=== PATIENT | female | born 1950 | race Caucasian/White ===

== ENCOUNTER → 2024-01-17 | Outpatient (CLI) | payer MEDICARE, MEDICAID, SELFPAY ==
[2024-01-17 14:20] LABS: Basophils # (Auto) 0.1 Thou/mm3 (0.0-0.2); Basophils % (Auto) 1 % (0-2.5); Eosinophils # (Auto) 0.2 Thou/mm3 (0.0-0.5); Eosinophils % (Auto) 3 % (0-10); Hemoglobin 11.1 g/dL (12.0-16.0); Immature Granulocytes % (Auto) 0 % (0-0); Immature Granulocytes Auto 0.01 Thou/mm3 (0.00-0.00); Lymphocytes # (Auto) 1.3 Thou/mm3 (1.0-4.8); Lymphocytes % (Auto) 18 % (10-50); Mean Corpuscular Hemoglobin 25.2 pg (25.0-35.0); Mean Corpuscular Volume 84 fL (80-100); Monocytes # (Auto) 1.1 Thou/mm3 (0.0-0.8); Monocytes % (Auto) 15 % (0-12); Neutrophils # (Auto) 4.6 Thou/mm3 (1.8-7.7); Neutrophils % (Auto) 63 % (37-80); Nucleated Red Blood Cell % 0 /100 WBC (0); Platelet Count 413 Thou/mm3 (140-440); RDW Standard Deviation 51.7 fL (36.4-46.3); Red Blood Count 4.41 Miln/mm3 (4.00-5.20); White Blood Count 7.4 Thou/mm3 (3.6-11.0)
[2024-01-17 14:42] LABS: Free T4 (Free Thyroxine) 1.75 ng/dL (0.89-1.76); Thyroid Stimulating Hormone 0.05 uIU/mL (0.55-4.78)
== END | disposition home or self-care (01) ==
LOC: COPL 13:31
PROVIDERS: PCP Family Medicine; Referring Provider Family Medicine; Visit Provider Family Medicine
DX: E05.00 Thyrotoxicosis with diffuse goiter without thyrotoxic crisis or storm (principal)
CPT/HCPCS: 36415; 84439; 84443; 85025

== ENCOUNTER 2024-07-22 23:38 | Inpatient (IN) | payer MEDICARE, MEDICAID, SELFPAY ==
--- NOTE | 2024-07-22 23:42 | PD.EDFALL ---
ED Fall Injury RME/HPI General Chief Complaint: Extremity Injury, Lower Stated Complaint: FALL Time Seen by Provider: 07/23/24 00:17 Arrival date/time: 07/22/24 23:38 RME / HPI RME / HPI Narrative: This section includes all my notes and documentations, including HPI, PE, and ED course. Srikanth Agustin MD HPI: 74 y/o female with Hx of Arthritis and Degenerative Disc Disease BIBA from home presents to ED s/p ground level fall. Patient was home alone in front of her recliner chair when her legs gave out from under her and fell back. She reports falling a total of 3 times, has trouble with the details. She is unaware of how long she was on the floor, but was found by her son after work. She reports diffuse pain. No other complaints. ROS: All negative except as documented in HPI. Physical Exam: General: Alert and oriented. No acute distress remained stable. Eyes: Conjunctivae and lids clear. EOMI. PERRL. ENT: No signs of trauma. Neck: Supple. No tenderness. Heart: RRR. Lungs: No respiratory distress. Good air movement. No rhonchi, wheezing, rales. Abdomen: Soft with equivocal tenderness, difficult to localize. Normal bowel sounds. No distension. No rebound or guarding. Back: No tenderness. Legs: No clubbing, cyanosis, edema. Skin: Warm and dry. Neuro: Alert and oriented X 2. Cranial Nerves II-XII grossly intact. No peripheral motor deficits. Musculoskeletal: Equivocal bilateral hip tenderness. All other major joints and bones are not tender with no limited ROM. I reviewed EMS notes. I reviewed all diagnostic test results. My interpretation of the EKG is sinus rhythm with no acute ST?T changes. My review of the C-spine CT report is no acute fracture. My review of the Chest/Abdomen/Pelvis CT report is no acute findings. My review of the Facial Bones CT report is no acute fracture. My review of the Head/Brain CT report is NAD. My review of the L-spine CT report is no acute fracture. My review of the T-spine CT report is no acute fracture. Blood tests and urine tests remarkable for UTI and SAPPHIRE and rhabdomyolysis and LFT elevation and BNP elevation. Abdominal US report is pending. At this point, diagnoses include: Sepsis UTI Fall SAPPHIRE Rhabdomyolysis LFT elevation BNP elevation Treatment here included IV fluid, Zofran, Morphine, Rocephin. Patient remained stable. I discussed the case with our hospitalist. About the presentation and exam and diagnostics and treatments here. And need of further care in the hospital. Recommended MRCP. At 6 AM on 07/23/2024, the care of the patient was transferred to Dr. WINSLOW. Srikanth Agustin MD Related Data Home Medications ?Medication ?Instructions ?Recorded ?Confirmed potassium chloride 10 mEq 10 meq PO BID 09/08/17 11/15/23 capsule,extended release spironolactone 25 mg tablet 25 mg PO QDAY 12/22/20 11/15/23 furosemide 40 mg tablet See Rx Instructions .Route .COMPLEX 01/26/21 11/15/23 amiodarone 200 mg tablet 200 mg PO BID 07/15/21 11/15/23 morphine 30 mg tablet,extended See Rx Instructions .Route 07/15/21 11/15/23 release .COMPLEX chronic back pain duloxetine 60 mg capsule,delayed 60 mg PO BID 02/28/22 11/15/23 release gabapentin 100 mg capsule 100 mg PO TID 02/28/22 11/15/23 carvedilol 6.25 mg tablet 6.25 mg PO BIDWM 11/03/22 11/15/23 buspirone 15 mg tablet 15 mg PO TID PRN Anxiety 11/15/23 11/15/23 rivaroxaban 20 mg tablet (Xarelto) 20 mg PO HS 11/15/23 11/15/23 Previous Rx's ?Medication ?Instructions ?Recorded amoxicillin 875 mg-potassium 1 tab PO BID #8 tabs 11/16/23 clavulanate 125 mg tablet azithromycin 250 mg tablet 250 mg PO QDAY #2 tabs 11/16/23 methimazole 5 mg tablet 5 mg PO QDAY #30 tabs 11/16/23 Allergies Allergy/AdvReac Type Severity Reaction Status Date / Time doxycycline Allergy Verified 07/23/24 00:53 Review of Systems Review of Systems Systems Reviewed: All systems reviewed, normal except as documented Past Medical History Past Medical History CARDIAC: Positive Cardiac Disorders, Atrial Fibrillation, Hypercholesterolemia, Congestive Heart Failure, Edema, Hypertension and Varicose Veins RESPIRATORY: Positive Chronic Obstructive Pulmonary Disease (COPD) GASTROINTESTINAL: Positive Gastrointestinal Disorders, Gall Bladder Disease and Obesity MUSCULOSKELETAL: Positive Musculoskeletal Disorders, Arthritis and Degenerative Disk Disease PSYCHO/SOCIAL: Positive Anxiety OTHER HISTORY: Positive Falls and Measles Family History FAMILY HISTORY: Positive Family Cardiac Disorders and Family Cancer Surgical History SURGICAL: Positive Ear Surgery and Abdominal Surgery Social History SMOKING STATUS: Current every day smoker ED Exam Narrative Physical exam: Refer to HPI above Course Quality Measures none Orders Category Date Time Status Bedside COVID-19 Antigen Test NOW Care 07/23/24 00:14 Active Bedside Influenza A&B Antigen Test NOW Care 07/23/24 00:14 Completed EKG (ED ONLY) *Do not use* NOW Care 07/23/24 00:15 Completed MRI Screening NOW Care 07/23/24 05:20 Active MRI Screening NOW Care 07/23/24 05:22 Active Saline [Insert IV] NOW Care 07/23/24 00:14 Active Straight [In and Out Catheter] X1 Care 07/23/24 00:14 Completed Diet Cardiac Diet 07/23/[address] cervical spine wo con Stat Exams 07/23/24 00:[address] chest abdomen pelvis wo Stat Exams 07/23/24 00:[address] facial bones wo con Stat Exams 07/23/24 00:[address] head/brain wo con Stat Exams 07/23/24 00:[address] lumbar spine wo con Stat Exams 07/23/24 00:[address] thoracic spine wo con Stat Exams 07/23/24 00:16 Taken EKG (ED Only) Stat Exams 07/23/24 00:15 Draft MR MRCP Stat Exams 07/23/24 Ordered MR MRCP Stat Exams 07/23/24 Ordered US gall bladder Stat Exams 07/23/24 03:04 Taken Alcohol, Blood Medical Stat Lab 07/23/24 00:31 Completed BNP [B-Type Natriuretic Peptide] Stat Lab 07/23/24 00:31 Completed Blood Culture (Lab) Stat Lab 07/23/24 00:31 Received CBC Stat Lab 07/23/24 00:31 Completed CK [Creatine Kinase] Stat Lab 07/23/24 00:31 Completed CMP [Comprehensive Metabolic Panel] Stat Lab 07/23/24 00:31 Completed CRP [C-Reactive Protein] Stat Lab 07/23/24 00:31 Completed Drug Screen,Urine Stat Lab 07/23/24 03:16 Completed ESR [Sed Rate (ESR)] Stat Lab 07/23/24 00:31 Completed Free T4 (Free Thyroxine) Stat Lab 07/23/24 00:31 Completed Lactate (Lactic Acid) Stat Lab 07/23/24 00:31 Completed Magnesium Stat Lab 07/23/24 00:31 [address]pleted Path Review Blood Smear Stat Lab 07/23/24 00:31 Completed Procalcitonin Stat Lab 07/23/24 00:31 Completed TSH [Thyroid Stimulating Hormone] Stat Lab 07/23/24 00:31 Completed Troponin I Stat Lab 07/23/24 00:31 Completed UA, C/S IF [Urinalysis, C/S if Indicated] Stat Lab 07/23/24 03:16 Completed Urine Culture Stat Lab 07/23/24 03:16 Received Amiodarone [Cordarone] Med 07/23/24 09:00 Ordered 200 mg PO BID Methimazole [Tapazole] Med 07/23/24 09:00 Ordered 5 mg PO DAILY Morphine Inj Med 07/23/24 00:14 Discontinued 4 mg IVP X1 ONE Ondansetron Inj [Zofran Inj] Med 07/23/24 00:14 Discontinued 4 mg IV X1 ONE Piper/Tazo 3.375 gm Premix [Zosyn] 50 ml Med 07/23/24 05:04 Ordered IV Q8HR Rivaroxaban [Xarelto] Med 07/23/24 09:00 Discontinued 15 mg PO QDAY Sodium Chloride 0.9% 1000 ml [Ns] 1,000 ml Med 07/23/24 04:58 Ordered IV 100 mls/hr Sodium Chloride 0.9% 1000 ml [Ns] 1,000 ml Med 07/23/24 00:14 Discontinued IV 999 mls/hr Sodium Chloride 0.9% 1000 ml [Ns] 1,000 ml Med 07/23/24 03:02 Discontinued IV 999 mls/hr carVEDILOL [Coreg] Med 07/23/24 08:00 Ordered 6.25 mg PO BIDWM cefTRIAXone/D5w 1gm IV premix [Rocephin/D5w 1gm IV Med 07/23/24 03:02 Discontinued premix] 1 gm in 50 ml IV X1 Vital Signs Vital signs: Vital Signs Temperature 98.0 F 07/22/24 23:49 Pulse Rate 60 07/22/24 23:49 Respiratory Rate 18 07/22/24 23:49 Blood Pressure 115/57 L 07/22/24 23:49 Pulse Oximetry (%) 95 07/22/24 23:49 Oxygen Delivery Method Room Air 07/22/24 23:49 Fall MDM Narrative MDM Narrative:: Scribe Attestation: Yenny Mahajan, am scribing for and in the presence of Dr. Agustin. Provider Notation: Although this document has been carefully reviewed, there may still be some phonetic and other typographical errors.? These errors are purely grammatical due to imperfections in the software program and should not be construed in any way to? compromise the substance of the patient's medical care during this visit. 74 y/o female with Hx of Arthritis and Degenerative Disc Disease BIBA from home presents to ED c/o BL hip and lower extremity pain s/p ground level fall. Patient data External records reviewed:: [facility] previous records (Reviewed prior ED records from 11/13/23. Patient was seen for Hypoxia.) and EMS form Clinical information provided by:: patient and EMS Social determinants that could affect healthcare access:: none Patient has the following chronic illnesses:: Atrial Fibrillation, Hypercholesterolemia, Congestive Heart Failure, Edema, Hypertension, Varicose Veins, Chronic Obstructive Pulmonary Disease, Gall Bladder Disease, Obesity, Arthritis, Degenerative Disk Disease, Anxiety How is presenting disease/condition affected by chronic disease/condition?: exacerbated by Evaluation data The following diagnostics were reviewed and interpreted by me:: lab results, radiology exam(s) and EKG tracing(s) Lab and/or radiology exams considered but not ordered:: None Interpretation Summary: Sepsis UTI Fall SAPPHIRE Rhabdomyolysis LFT elevation BNP elevation Medications / Prescriptions Medications or Prescriptions considered but not ordered:: None Medication administrations:: Medication Administration History Amiodarone HCl (Amiodarone Hcl 200 Mg Tablet) 200 mg PO BID GHADA Stop: 08/22/24 08:59 Carvedilol (Carvedilol 3.125 Mg Tablet) 6.25 mg PO BIDWM GHADA Stop: 08/22/24 07:59 Sodium Chloride (Ns) 1,000 mls @ 100 mls/hr IV .Q10H GHADA Stop: 08/22/24 04:57 Piperacillin/Tazobactam/Dextrose (Zosyn) 50 mls @ 100 mls/hr IV Q8HR GHADA Stop: 07/30/24 05:03 Methimazole (Methimazole 5 Mg Tablet) 5 mg PO DAILY GHADA Stop: 08/22/24 08:59 Discontinued Medications Sodium Chloride (Ns) 1,000 mls @ 999 mls/hr IV .Q1H1M ONE Stop: 07/23/24 01:14 Last Admin: 07/23/24 01:48 Dose: 999 mls/hr Documented By: CG Ceftriaxone Sodium/Dextrose (Rocephin/D5w 1gm Iv Premix) 1 gm in 50 mls @ 100 mls/hr IV X1 ONE Stop: 07/23/24 03:31 Last Admin: 07/23/24 04:44 Dose: 100 mls/hr Documented By: CG Sodium Chloride (Ns) 1,000 mls @ 999 mls/hr IV .Q1H1M ONE Stop: 07/23/24 04:02 Last Admin: 07/23/24 04:45 Dose: 999 mls/hr Documented By: CG Morphine Sulfate (Morphine Sulf Inj 10 Mg/Ml Vial) 4 mg IVP X1 ONE Stop: 07/23/24 00:15 Last Admin: 07/23/24 01:49 Dose: 4 mg Documented By: CG Ondansetron HCl (Ondansetron Inj 2 Mg/Ml Inj 2 Ml) 4 mg IV X1 ONE; Protocol Stop: 07/23/24 00:15 Last Admin: 07/23/24 01:47 Dose: 4 mg Documented By: CG Rivaroxaban (Rivaroxaban 10 Mg Tablet) 15 mg PO QDAY GHADA Stop: 08/22/24 08:59 IV fluid, Zofran, Morphine, Rocephin. Consultations Consultation(s) initiated? (list below): Yes Consultation #1 (Physician, Specialty, Details): I discussed the case with our hospitalist. About the presentation and exam and diagnostics and treatments here. And need of further care in the hospital. Recommended MRCP. Time: 04:30 Diagnosis Fall Differential Diagnosis: syncope, dislocation of shoulder region, compression fracture, concussion with loss of consciousness, concussion without loss of consciousness and other (CVA, TN, UTI, pneumonia, sepsis) Most likely diagnosis given after review of the tests above:: Sepsis UTI Fall SAPPHIRE Rhabdomyolysis LFT elevation BNP elevation Admission Indicated Admission indicated?: indicated Explain why admission is indicated or not indicated:: Complete diagnostic test results pending. Admission Request Was there a request for admission?: Yes Admission Attestation Admission request attestation: Discussed case with Hospitalist service regarding admission. Discussed patients ED course, exam findings, labs, and radiology results. The Hospitalist [declines] to accept the patient for admission. Disposition Plan Disposition Plan: other (specify) (Care of the patient was transferred to Dr. WINSLOW.) Critical Care Time Critical Care Time Critical Care Time: Yes Total Critical Care Time (min.): 36 Attestation: Due to a high probability of clinically significant, life threatening deterioration, the patient required my highest level of preparedness to intervene emergently and I personally spent this critical care time directly and personally managing the patient. This critical care time included obtaining a history; examining the patient; ordering and review of studies; arranging urgent treatment with development of a management plan; evaluation of patient's response to treatment; frequent reassessment; and discussions with family and other providers. It was exclusive of separately billable procedures and treating other patients and teaching time. Srikanth Agustin MD Discharge Plan Prescriptions/Referrals Prescriptions/Med Rec: No Action spironolactone 25 mg tablet 25 mg PO QDAY furosemide 40 mg Tablet See Rx Instructions .ROUTE .COMPLEX Rx Instructions: TAKE ONE TABLET BY MOUTH AT ten IN THE MORNING AND TAKE ONE TABLET BY MOUTH AT FOUR IN THE AFTERNOON amiodarone 200 mg Tablet 200 mg PO BID morphine 30 mg tablet extended release See Rx Instructions .ROUTE .COMPLEX MDD 90 mg Rx Instructions: TAKE ONE TABLET BY MOUTH IN THE MORNING AND TAKE 2 TABLETS BY MOUTH IN THE EVENING Pt takes 60mg at noon, and 30mg at midnight potassium chloride 10 mEq Capsule, Extended Release 10 meq PO BID gabapentin 100 mg capsule 100 mg PO TID duloxetine 60 mg capsule,delayed release(DR/EC) 60 mg PO BID Patient Comments: TAKE ONE CAPSULE BY MOUTH EVERY DAY carvedilol 6.25 mg tablet 6.25 mg PO BIDWM Patient Comments: TAKE ONE TABLET BY MOUTH WITH FOOD TWICE DAILY buspirone 15 mg tablet 15 mg PO TID PRN (Reason: Anxiety) Patient Comments: TAKE ONE TABLET BY MOUTH THREE TIMES DAILY NEEDED FOR ANXIETY Xarelto 20 mg tablet 20 mg PO HS Patient Comments: TAKE ONE TABLET BY MOUTH EVERY EVENING WITH FOOD methimazole 5 mg tablet 5 mg PO QDAY Qty: 30 0RF amoxicillin-pot clavulanate 875-125 mg tablet 1 tab PO BID Qty: 8 0RF azithromycin 250 mg tablet 250 mg PO QDAY Qty: 2 0RF Referrals: Domenic Mcmahan MD [Primary Care Provider] - In 1 week Problem List Clinical Impression: Sepsis, UTI (urinary tract infection), Fall, SAPPHIRE (acute kidney injury), Rhabdomyolysis, LFT elevation, Elevated brain natriuretic peptide (BNP) level Patient/Caregiver Discharge Instructions Print Language: Luxembourgish
[2024-07-22 23:49] VITALS: BP 115/57; PULSE 60; RESP 18; TEMP 36.7; O2SAT 95
[2024-07-23] VITALS (44 sets, daily range): BP systolic 112–146; BP diastolic 42–70; PULSE 54–77; RESP 15–24; TEMP 36.1–37.6; O2SAT 81–97; BMI 38.9; BMI 39.8
--- NOTE | 2024-07-23 | XR_ITS ---
MRI abdomen, without contrast. MRCP Date and time of exam: July 23, 2024 1118 hours INDICATIONS: Sepsis urinary tract infection acute renal insufficiency, elevated liver function tests on laboratory examination today, abnormally enlarged common bile duct on gallbladder sonogram this morning Technique: Multiple axial and coronal images of the abdomen have been obtained with the Siemens 1.5T MRI scanner. Images obtained included T1 weighted transverse images, T2-weighted transverse images, T2-weighted transverse images fat-suppressed, T2 weighted haste fat suppressed transverse images, T1 weighted images, in and out of phase images, T2-weighted coronal images, breath hold, T2 weighted haze coronal images as well as T2 weighted coronal thick slab images, MRCP. Findings: Intrahepatic biliary tract dilatation Common hepatic duct 14 mm Abrupt termination of the distal common bile duct no definite stones Pancreatic duct is not dilated no peripancreatic edema Spleen is not enlarged No ascites No hydronephrosis IMPRESSION: Abnormal extra hepatic biliary tract dilatation with abrupt termination of the distal common bile duct, differential would include malignant neoplasm at the ampulla Recommend ERCP/biopsies follow-up
--- NOTE | 2024-07-23 00:15 | XR_ITS ---
Examination: CT chest, without intravenous contrast. CT abdomen, without intravenous contrast. CT pelvis, without intravenous contrast. 2-D sagittal and coronal reconstructions. 3-D reconstructions. Date and time of exam:July 23, 2024 0104 hours INDICATIONS: Frequent falls today with injury to the chest and abdomen, chest pain abdomen pain and back pain CTDI vol (mgy) 11.3 DLP (MGycm)785 Technique: Multiple CT images, 3.0 mm slice thickness, obtained chest, abdomen, pelvis, with the high-resolution 64 slice scanner.. Sagittal and coronal 2-D reconstructions are obtained. 3-D reconstructions Low dose protocols were performed. One or more of the following dose reduction techniques were used; automated exposure control, adjustment of the mA and/or KV according to patient size, use of iterative reconstruction technique. Findings: Thoracic aorta pulmonary arteries intact No hemopericardium No pneumothorax or pulmonary contusion or hemothorax The sternum thoracic and lumbar vertebral bodies appear intact as well as RIBS No liver splenic or renal laceration Absent gallbladder No pancreatic mass Aorta intact No free body in the abdomen Urinary bladder intact No pelvic mass Hips bones of the pelvis is intact as well as sacral segment IMPRESSION: Thoracic aorta and pulmonary arteries intact No hemopericardium, pneumothorax or pulmonary contusion or hemothorax No abdominal parenchymal laceration. Abdominal aorta intact No free blood in the abdomen or pelvis
--- NOTE | 2024-07-23 00:15 | XR_ITS ---
Examination: CT brain head without contrast. 2-D sagittal coronal reconstructions Date and time of exam:July 23, 2024 0054 hours INDICATIONS: Patient fell today with injury to the head, head pain CTDI: vol (mGy):48 DLP: (mGycm):996 Technique: Multiple CT axial sections of the brain have been obtained, 5 mm slice thickness. Contrast has not been administered. 2-D sagittal, coronal reconstructions have been obtained Low dose protocols were performed. One or more of the following dose reduction techniques were used; automated exposure control, adjustment of the mA and/or KV according to patient size, use of iterative reconstruction technique. Findings: No significant ventricular enlargement. Intra-axial or extra-axial hemorrhage density is not seen. No mass effect or midline shift Basal cisterns are not remarkable. Fourth ventricle is midline. Cranial vault intact. Impression: Negative for acute hemorrhage, mass effect or midline shift
--- NOTE | 2024-07-23 00:15 | XR_ITS ---
Examination: CT cervical spine without contrast 2-D sagittal reconstructions 2-D coronal reconstructions 3-D reconstructions. Exam date and time:July 23, 2024 0054 hours INDICATIONS: Patient fell today with injury to the neck, neck pain CTDI:vol (mGy) 15.4 DLP: (mGycm) 320 Technique: Multiple 2 mm axial sections of the cervical spine have been obtained. The coronal and sagittal reconstructions have been obtained. 3-D reconstructions have been obtained. Low dose protocols were performed. One or more of the following dose reduction techniques were used; automated exposure control, adjustment of the mA and/or KV according to patient size, use of iterative reconstruction technique. Findings: Axial sections demonstrate intact base of the skull. C1 exhibit satisfactory relationship to the odontoid. No acute cervical vertebral body fracture seen. Alignment posterior spinous processes satisfactory. Impression: No acute cervical fracture.
--- NOTE | 2024-07-23 00:15 | EKG_ITS ---
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: : [id number] Requested By: Srikanth Mckinnon Order Number: [id number] Reading MD: Srikanth Mckinnon Measurements Intervals Stuart Rate: 60 P: 54 OK: 227 QRS: -7 QRSD: 113 T: 76 QT: 462 QTc: 464 Interpretive Statements SINUS RHYTHM WITH FIRST DEGREE AV BLOCK LOW QRS VOLTAGE IN PRECORDIAL LEADS [QRS DEFLECTION < 1.0 mV IN CHEST LEADS] POSSIBLE ANTERIOR MYOCARDIAL INFARCTION , OF INDETERMINATE AGE [30 ms Q WAVE IN V3/V4, OR R < 0.2 mV IN V4] Compared to ECG 11/02/2022 10:51:19 Myocardial infarct finding now present T-wave abnormality no longer present /store/S0/[id number].pdf
--- NOTE | 2024-07-23 00:15 | XR_ITS ---
Examination: CT maxillofacial, without intravenous contrast. 2-D sagittal reconstructions. 3-D reconstructions. Date and time of exam:July 23, 2024 0054 hours INDICATIONS: Patient fell 3 times a day with images of the face, facial pain CTDI: vol (mGy):16.7 DLP: (mGycm):293 Technique: Multiple axial images of maxillofacial region, 3.0 mm slice thickness. 2-D sagittal and coronal reconstructions. 3-D reconstructions. Low dose protocols were performed. One or more of the following dose reduction techniques were used; automated exposure control, adjustment of the mA and/or KV according to patient size, use of iterative reconstruction technique. Findings: Mandible maxilla appear intact including pterygoid plates No nasal bone fracture No depression zygomatic arches Nasal bones intact Significant maxillary right antral sinus disease Frontal bone is intact IMPRESSION: No acute facial fracture
--- NOTE | 2024-07-23 00:16 | XR_ITS ---
Examination: CT lumbar spine, without contrast. 2-D sagittal reconstructions. 2-D coronal reconstructions. 3-D reconstructions. Date and time of exam:July 23, 2024 0109 hours INDICATIONS: Frequent falls today with injury to lower back, lower back pain CTDI: vol (mGy):33 DLP: (mGycm):1010 Technique: Multiple 1.25 mm axial sections of the lumbar spine without intravenous contrast have been obtained. 2-D sagittal and coronal reconstructions have been obtained. 3-D reconstructions have been obtained. Low dose protocols were performed. One or more of the following dose reduction techniques were used; automated exposure control, adjustment of the mA and/or KV according to patient size, use of iterative reconstruction technique. Findings: Severe osteopenia No acute lumbar fracture Chronic depression superior endplate L4 No spondylolisthesis L4-L5 moderate right neural foraminal stenosis IMPRESSION: No acute lumbar fracture
--- NOTE | 2024-07-23 00:16 | XR_ITS ---
Examination: CT thoracic spine, without contrast. 2-D sagittal reconstructions. 2-D coronal reconstructions. 3-D reconstructions. Date and time of exam:July 23, 2024 0109 hours INDICATIONS: Frequent falls today with injury to the back, upper back pain CTDI: vol (mGy):31 DLP: (mGycm):999 Technique: Multiple 1.25 mm axial sections of the thoracic spine without contrast have been obtained. 2-D sagittal and coronal reconstructions have been obtained. 3-D reconstructions have been obtained. Low dose protocols were performed. One or more of the following dose reduction techniques were used; automated exposure control, adjustment of the mA and/or KV according to patient size, use of iterative reconstruction technique. Findings: Prominent osteopenia Adequate alignment of thoracic vertebral bodies No thoracic fracture No focal thoracic disc protrusion IMPRESSION: No acute thoracic fracture
[2024-07-23 00:41] LABS: Lactate (Lactic Acid) 1.7 mMol/L (0.4-2.0)
[2024-07-23 00:58] LABS: Basophils # (Auto) 0.1 Thou/mm3 (0.0-0.2); Basophils % (Auto) 0 % (0-2.5); Eosinophils % (Auto) 0 % (0-10); Hematocrit 35.8 % (36.0-46.0); Hemoglobin 11.6 g/dL (12.0-16.0); Immature Granulocytes % (Auto) 1 % (0-0); Immature Granulocytes Auto 0.27 Thou/mm3 (0.00-0.00); Lymphocytes # (Auto) 0.9 Thou/mm3 (1.0-4.8); Lymphocytes % (Auto) 3 % (10-50); Mean Corpuscular HGB Conc 32.4 g/dl (31.0-37.0); Mean Corpuscular Hemoglobin 28.2 pg (25.0-35.0); Mean Corpuscular Volume 87 fL (80-100); Monocytes # (Auto) 4.2 Thou/mm3 (0.0-0.8); Monocytes % (Auto) 17 % (0-12); Neutrophils # (Auto) 19.5 Thou/mm3 (1.8-7.7); Neutrophils % (Auto) 78 % (37-80); Nucleated Red Blood Cell % 0 /100 WBC (0); Platelet Count 331 Thou/mm3 (140-440); Red Blood Count 4.12 Miln/mm3 (4.00-5.20); White Blood Count 24.9 Thou/mm3 (3.6-11.0)
[2024-07-23 01:11] LABS: B-Type Natriuretic Peptide 395 pg/mL (0-100)
[2024-07-23 01:21] LABS: Alanine Aminotransferase 54 U/L (10-49); Albumin, Serum 3.7 gm/dL (3.4-4.8); Albumin/Globulin Ratio 1.1 (1.2-2.2); Alcohol, Blood Medical < 3.0 mg/dL (0-10.0); Alkaline Phosphatase 137 U/L (46-116); Anion Gap 7 (7-16); Aspartate Amino Transferase 134 U/L (0-34); BUN/Creatinine Ratio 13 Ratio (12-20); Bilirubin,Total 2.3 mg/dL (0.3-1.2); Blood Urea Nitrogen 20 mg/dL (9-23); Calcium 8.9 mg/dL (8.3-10.6); Calcium (Corrected) 9.1 mg/dL (8.5-10.1); Carbon Dioxide 26.7 mMol/L (20.0-31.0); Chloride 99 mMol/L (98-107); Creatinine (Component) 1.6 mg/dL (0.6-1.3); Free T4 (Free Thyroxine) 2.18 ng/dL (0.89-1.76); Globulin 3.5 gm/dL (2.3-3.5); Glucose 102 mg/dL (74-106); Magnesium 1.9 mg/dL (1.6-2.6); Osmolality,Calculated 268 (275-295); Potassium 4.6 mMol/L (3.4-5.1); Procalcitonin 5.27 ng/ml (0.0-0.49); Sodium 133 mMol/L (136-145); Thyroid Stimulating Hormone 0.16 uIU/mL (0.55-4.78); Total Protein 7.2 gm/dL (5.7-8.2); Troponin I < 0.020 ng/mL (0.0-0.045); eGFR 33 See Note
[2024-07-23 01:31] LABS: Sed Rate (ESR) 86 mm/hr (0-30)
[2024-07-23 01:46] LABS: C-Reactive Protein 12.4 mg/dL (0.0-0.9); Creatine Kinase 3532 U/L (34-171)
[2024-07-23] MEDS: ONDANSETRON INJ 2 MG/ML INJ 2 ML 4 MG IV ×2 (01:47→16:49)
[2024-07-23] MEDS: SODIUM CHLORIDE 0.9% 1000 ML 1,000 ML 999 ML IV ×2 (01:48→04:45)
--- NOTE | 2024-07-23 01:48 | PRELIM_ITS ---
CT scan of the head without intravenous contrast (axial sections with sagittal and coronal reformats) July 23, 2024 0054 hours Clinical History: Fall Comparison: No prior study is available for comparison. Findings: There is no evidence of intracranial hemorrhage, mass effect or midline shift. There are periventricular white matter hypodensities, compatible with chronic small vessel ischemia. There is mild volume loss. The calvarium is intact. The mastoid air cells and the visualized paranasal sinuses are clear. Impression: 1. No evidence of intracranial hemorrhage, midline shift or calvarial fracture. 2. Periventricular chronic small vessel ischemia and volume loss. 3. Other findings as described above. Suggest clinical correlation and follow up accordingly. Report on maxillofacial CT to follow. Report Electronically Signed By: Yandel Bell 07/23/2024 1:47:40 AM [EST]
[2024-07-23] MEDS: MORPHINE SULF INJ 10 MG/ML VIAL 4 MG IVP (01:49)
--- NOTE | 2024-07-23 01:58 | PRELIM_ITS ---
CT scan of the cervical spine without intravenous contrast (axial sections with sagittal and coronal reformats) July 23, 2024 0054 hours Clinical History: Trauma Comparison: No prior study is available for comparison. Findings: There is no fracture or traumatic subluxation. There are multilevel degenerative changes in the form of marginal osteophytes, decreased disc height, uncinate process and facet arthrosis, most prominent at C5-C6 and C6-C7 causing mild spinal canal and bilateral neural foraminal narrowing. The prevertebral soft tissues are unremarkable. Emphysematous changes are noted in the visualized lungs. Impression: 1. No evidence of fracture or traumatic subluxation. 2. Degenerative changes as described above. 3. Other findings as described above. Suggest clinical correlation and follow up accordingly. Report Electronically Signed By: Yandel Bell 07/23/2024 1:58:04 AM [EST]
--- NOTE | 2024-07-23 01:59 | PRELIM_ITS ---
CT maxillofacial without intravenous contrast (axial sections with sagittal and coronal reformats). July 23, 2024 0054 hours Clinical History: Trauma Comparison: No prior study is available for comparison. Findings: There is no acute fracture.The maxillary sinus and orbital wong are intact. No fluid levels are seen. No evidence of intraorbital hematoma, proptosis, globe injury or radiodense foreign body. The zygomatic arches and mandible are intact. The visualized soft tissues are unremarkable. There is complete opacification of the right maxillary sinus. Impression: 1. No evidence of acute maxillofacial fracture. 2. Other findings as described above. Suggest clinical correlation and follow up accordingly. Report Electronically Signed By: Yandel Bell 07/23/2024 1:59:19 AM [EST]
--- NOTE | 2024-07-23 02:41 | PRELIM_ITS ---
CT scan of the thoracic spine without intravenous contrast (axial sections with sagittal and coronal reformats) July 23, 2024 at 0109 hours Clinical History: Fall. Comparison: No prior study is available for comparison. Findings: There is no acute thoracic vertebral fracture or traumatic subluxation. The paravertebral soft tissues are unremarkable. Impression: No evidence of acute thoracic vertebral fracture or traumatic subluxation. Report Electronically Signed By: Winston Palma 07/23/2024 2:40:24 AM [EST]
--- NOTE | 2024-07-23 02:41 | PRELIM_ITS ---
CT scan Lumbar spine without contrast (entire l-spine, axial sections with sagittal and coronal reformats). Clinical history: Fall. Findings: There is no acute lumbar fracture or traumatic subluxation. The paravertebral soft tissues are unremarkable. Probably chronic compression fracture and Schmorl's node at the superior L4 endplate. Mild diffuse disc space narrowing and spondylosis. Impression: No evidence of acute lumbar fracture or traumatic subluxation. Report Electronically Signed By: Winston Palma 07/23/2024 2:40:30 AM [EST]
--- NOTE | 2024-07-23 03:00 | PRELIM_ITS ---
CT scan of the chest, abdomen and pelvis without intravenous contrast (axial sections with sagittal and coronal reformats) July 23, 2024 at 0104 hours Clinical History: Fall. Comparison: No prior study is available for comparison. Findings: Coronary atherosclerosis is noted. Mild cardiomegaly. No pericardial effusion pleural effusion or pneumothorax. The lungs are clear. The liver, spleen, adrenal glands, pancreas and kidneys are unremarkable. Post cholecystectomy. The urinary bladder is normal. Probable to centimeter uterine fibroid. There is no adnexal cyst or mass. No free intraperitoneal air or fluid. Bowel caliber is normal. The appendix is not visualized; however, there is no evidence of inflammatory process in the right lower quadrant to suggest appendicitis. There is a small fat containing umbilical hernia. No acute osseous process. Impression: No acute injury of the chest abdomen and pelvis. Report Electronically Signed By: Winston Palma 07/23/2024 3:00:16 AM [EST]
--- NOTE | 2024-07-23 03:04 | XR_ITS ---
Examination: Abdomen sonogram, Limited Date and time of exam: This July 23, 2024 0408 hours INDICATIONS: Abdominal pain today Technique: Real-time valdez scale transabdominal sonographic images of the upper abdomen obtained. Findings: Absent gallbladder Common bile duct 1.3 cm no stones exam pancreatic head 3.1 cm Hepatomegaly 18.7 cm irregular contour and no focal liver lesions Normal hepatopedal portal venous flow Patent IVC IMPRESSION: Abnormally enlarged common bile duct 1.3 cm, recommend MRCP follow-up
[2024-07-23 03:51] LABS: Path Review Blood Smear Sent to Pathologist
[2024-07-23 03:56] LABS: Collection Type, Urine Clean Catch
[2024-07-23 04:15] LABS: Bacteria,Urine 3+; Bilirubin,Urine Negative (Negative); Blood,Urine 2+ (Negative); Color,Urine Yellow (Lt Yel-Yel); Glucose, Urine Negative (Negative); Hyaline Casts,Urine 4 /hpf (0-1); Ketones,Urine Negative (Negative); Leukocyte Esterase,Urine Positive (Negative); Nitrite,Urine Negative (Negative); PH,Urine 5.5 (5.0-7.0); Protein,Urine 1+ (Neg - Trace); RBC,Urine 23 /hpf (0-3); Specific Gravity,Urine 1.013 (1.001-1.035); Squamous Epithelial Cell,Urine 3 /hpf (0-5); WBC,Urine 966 /hpf (0-5)
[2024-07-23] MEDS: cefTRIAXone/D5w 1gm IV premix 1 GM/50 ML BAG IV (04:44)
[2024-07-23 04:49] LABS: Clarity,Urine Turbid (Clear/Hazy); Culture Indicated,Urine Yes
[2024-07-23 04:56] LABS: Amphetamine/Methamp Scrn,U Negative (Negative); Barbiturate Screen,Urine Negative (Negative); Benzodiazepines Screen,Urine Negative (Negative); Benzoylecgonine Screen, Ur Negative (Negative); Fentanyl Screen,Urine Negative (Negative); Opiate Screen,Urine Positive (Negative); THC Screen,Urine Negative (Negative)
--- NOTE | 2024-07-23 05:10 | EVENTNT_ITS ---
Documentation for date of: 07/23/24 Event Note Event Note: Patient is a poor historian. A 74-year-old female presented to the ER with the chief complaint of fall. The patient described sudden onset of bilateral leg weakness earlier today, resulting in three separate ground-level falls throughout the day. The first fall occurred in the morning; she was assisted up by her son. She fell again while attempting to walk, and a third time after waking from a nap. After the t hird fall, she was unable to get up, prompting a call for EMS. She reports that during each episode, her legs ?gave out? or ?went backwards.? She also c/o severe neck pain (worse after the third fall), bilateral hip and lower extremity pain (exacerbated by movement), and generalized fatigue. Patient denied loss of consciousness, head trauma, fever, cough, chest pain, palpitations, or shortness of breath. She presented to the ER due to inability to ambulate and worsening pain. The patient has a history of COPD, CHF (last EF 50?55% on 12/02/20), AFib on anticoagulation, chronic back pain, and hypertension. Surgical history includes cholecystectomy (2007), tympanic membrane ear surgery, and right leg cyst I&D. Social history includes minimal prior tobacco use, no alcohol or drug use. She lives at home with her son and receives assistance from a home provider for four hours daily. She uses home oxygen at night. In the ER, vital signs recorded as temp 98.0?F, HR 60 bpm, RR 18, BP 115/57 m mHg. Labs revealed WBC 24.9, Hb 11.6, Plt 331, Na 133, K 4.6, Cl 99, BUN 20, creatinine 1.6, glucose 102, total bilirubin 2.3, AST 134, ALT 54, ALP 137, CK 3532, CRP 12.4, BNP 395, procalcitonin 5.27, TSH 0.16, free T4 2.18. UA was turbid with WBC 966, RBC 23, and 3+ bacteria. Sepsis alert was called. CT abdomen/pelvis showed no acute injury. US showed CBD 1.27 cm. MRCP is planned prior to admission.
--- NOTE | 2024-07-23 06:03 | PRELIM_ITS ---
Gallbladder ultrasound. July 23, 2024 at 0408 hours Clinical history: RUQ tenderness. Comparison: No prior study is available for comparison. Findings: Post cholecystectomy. Common bile duct is 1.3 cm in diameter. No choledocholithiasis is identified. Pancreas is unremarkable to the extent visualized. Liver is 18.7 cm long with mild irregular margins. No focal hepatic lesion. Main portal vein is antegrade. Inferior vena cava is unremarkable. Impression: Dilated common bile duct, may be secondary to cholecystectomy. Consider MRCP for further evaluation if there is concern for obstruction. Mild hepatomegaly.cannot exclude cirrhosis. Report Electronically Signed By: Winston Palma 07/23/2024 6:02:18 AM [EST]
--- NOTE | 2024-07-23 06:17 | PD.EDADDENDU ---
Emergency Room Addendum Addendum Narrative: 0600: Care assumed from Dr. Agustin, the previous shift emergency physician. Past medical, surgical, social and family history reviewed. Vitals and home medications reviewed. I will assume the care of the patient at this time, pending MRCP and final disposition. Please refer to the emergency department record for history and examination from initial visit.? Physical exam by me shows patient under no acute distress at this time. 1358: Patient needs an ERCP. Discussed test HPI, PMHx, lab, radiology results and/or management with Dr. Shirley. Recommends to get a HIDA scan. 1530: Discussed test HPI, PMHx, lab, radiology results and/or management with resident working with the hospitalist. Will admit for further evaluation and management. Accepts patient for admission. RADIOLOGY Procedure(s): MR MRCP Accession Number(s): [id number] cc: Domenic Mcmahan MD; Srikanth Agustin MD; Jose C Torre MD~ MRI abdomen, without contrast. MRCP Date and time of exam: July 23, 2024 1118 hours INDICATIONS: Sepsis urinary tract infection acute renal insufficiency, elevated liver function tests on laboratory examination today, abnormally enlarged common bile duct on gallbladder sonogram this morning Technique: Multiple axial and coronal images of the abdomen have been obtained with the Siemens 1.5T MRI scanner. Images obtained included T1 weighted transverse images, T2-weighted transverse images, T2-weighted transverse images fat-suppressed, T2 weighted haste fat suppressed transverse images, T1 weighted images, in and out of phase images, T2-weighted coronal images, breath hold, T2 weighted haze coronal images as well as T2 weighted coronal thick slab images, MRCP. Findings: Intrahepatic biliary tract dilatation Common hepatic duct 14 mm Abrupt termination of the distal common bile duct no definite stones Pancreatic duct is not dilated no peripancreatic edema Spleen is not enlarged No ascites No hydronephrosis IMPRESSION: Abnormal extra hepatic biliary tract dilatation with abrupt termination of the distal common bile duct, differential would include malignant neoplasm at the ampulla Recommend ERCP/biopsies follow-up Dictated By: Jose C Torre MD [facility] ([facility]3] [address] [place] [address] [employer] Preliminary Report Draft Patient: JULY,HE [facility]. Record#: [id number] Birthdate: 1950 Age/Sex: 74 / F Location: [facility] Attending Dr: Ordering Physician: Date of Service: Procedure(s): Accession Number(s): cc: ~ Gallbladder ultrasound. July 23, 2024 at 0408 hours Clinical history: RUQ tenderness. Comparison: No prior study is available for comparison. Findings: Post cholecystectomy. Common bile duct is 1.3 cm in diameter. No choledocholithiasis is identified. Pancreas is unremarkable to the extent visualized. Liver is 18.7 cm long with mild irregular margins. No focal hepatic lesion. Main portal vein is antegrade. Inferior vena cava is unremarkable. Impression: Dilated common bile duct, may be secondary to cholecystectomy. Consider MRCP for further evaluation if there is concern for obstruction. Mild hepatomegaly.cannot exclude cirrhosis. Report Electronically Signed By: Winston Palma 07/23/2024 6:02:18 AM [EST] [place] [address] [place] [address] [employer] Preliminary Report Draft Patient: JULYHE. Record#: [id number] Birthdate: 1950 Age/Sex: 74 / F Location: [facility] Attending Dr: Ordering Physician: Date of Service: Procedure(s): Accession Number(s): cc: ~ CT scan of the chest, abdomen and pelvis without intravenous contrast (axial sections with sagittal and coronal reformats) July 23, 2024 at 0104 hours Clinical History: Fall. Comparison: No prior study is available for comparison. Findings: Coronary atherosclerosis is noted. Mild cardiomegaly. No pericardial effusion pleural effusion or pneumothorax. The lungs are clear. The liver, spleen, adrenal glands, pancreas and kidneys are unremarkable. Post cholecystectomy. The urinary bladder is normal. Probable to centimeter uterine fibroid. There is no adnexal cyst or mass. No free intraperitoneal air or fluid. Bowel caliber is normal. The appendix is not visualized; however, there is no evidence of inflammatory process in the right lower quadrant to suggest appendicitis. There is a small fat containing umbilical hernia. No acute osseous process. Impression: No acute injury of the chest abdomen and pelvis. Report Electronically Signed By: Winston Palma 07/23/2024 3:00:16 AM [EST] [facility] ([facility]3] [address] [place] [address] [employer] Preliminary Report Draft Patient: [facility]UL[facility]. Record#: [id number] Birthdate: 1950 Age/Sex: 74 / F Location: [facility] Attending Dr: Ordering Physician: Date of Service: Procedure(s): Accession Number(s): cc: ~ CT scan Lumbar spine without contrast (entire l-spine, axial sections with sagittal and coronal reformats). Clinical history: Fall. Findings: There is no acute lumbar fracture or traumatic subluxation. The paravertebral soft tissues are unremarkable. Probably chronic compression fracture and Schmorl's node at the superior L4 endplate. Mild diffuse disc space narrowing and spondylosis. Impression: No evidence of acute lumbar fracture or traumatic subluxation. Report Electronically Signed By: Winston Palma 07/23/2024 2:40:30 AM [EST] [address] [address] [employer] Preliminary Report Draft Patient: JULYHE [facility]. Record#: [id number] Birthdate: 1950 Age/Sex: 74 / F Location: [facility] Attending Dr: Ordering Physician: Date of Service: Procedure(s): Accession Number(s): cc: ~ CT scan of the thoracic spine without intravenous contrast (axial sections with sagittal and coronal reformats) July 23, 2024 at 0109 hours Clinical History: Fall. Comparison: No prior study is available for comparison. Findings: There is no acute thoracic vertebral fracture or traumatic subluxation. The paravertebral soft tissues are unremarkable. Impression: No evidence of acute thoracic vertebral fracture or traumatic subluxation. Report Electronically Signed By: Winston Palma 07/23/2024 2:40:24 AM [EST] [address] [address] [employer] Preliminary Report Draft Patient: JULY,HE [facility]. Record#: [id number] Birthdate: 1950 Age/Sex: 74 / F Location: [facility] Attending Dr: Ordering Physician: Date of Service: Procedure(s): Accession Number(s): cc: ~ CT maxillofacial without intravenous contrast (axial sections with sagittal and coronal reformats). July 23, 2024 0054 hours Clinical History: Trauma Comparison: No prior study is available for comparison. Findings: There is no acute fracture.The maxillary sinus and orbital wong are intact. No fluid levels are seen. No evidence of intraorbital hematoma, proptosis, globe injury or radiodense foreign body. The zygomatic arches and mandible are intact. The visualized soft tissues are unremarkable. There is complete opacification of the right maxillary sinus. Impression: 1. No evidence of acute maxillofacial fracture. 2. Other findings as described above. Suggest clinical correlation and follow up accordingly. Report Electronically Signed By: Yandel Bell 07/23/2024 1:59:19 AM [EST] [facility]3] [address] [place] [address] [employer] Preliminary Report Draft Patient: JULY,HE [facility]. Record#: [id number] Birthdate: 1950 Age/Sex: 74 / F Location: [facility] Attending Dr: Ordering Physician: Date of Service: Procedure(s): Accession Number(s): cc: ~ CT scan of the cervical spine without intravenous contrast (axial sections with sagittal and coronal reformats) July 23, 2024 0054 hours Clinical History: Trauma Comparison: No prior study is available for comparison. Findings: There is no fracture or traumatic subluxation. There are multilevel degenerative changes in the form of marginal osteophytes, decreased disc height, uncinate process and facet arthrosis, most prominent at C5-C6 and C6-C7 causing mild spinal canal and bilateral neural foraminal narrowing. The prevertebral soft tissues are unremarkable. Emphysematous changes are noted in the visualized lungs. Impression: 1. No evidence of fracture or traumatic subluxation. 2. Degenerative changes as described above. 3. Other findings as described above. Suggest clinical correlation and follow up accordingly. Report Electronically Signed By: Yandel Bell 07/23/2024 1:58:04 AM [EST] [facility]3] [address] [place] [facility] [place] [address] [employer] Preliminary Report Draft Patient: JULYHE [facility]. Record#: [id number] Birthdate: 1950 Age/Sex: 74 / F Location: [facility] Attending Dr: Ordering Physician: Date of Service: Procedure(s): Accession Number(s): cc: ~ CT scan of the head without intravenous contrast (axial sections with sagittal and coronal reformats) July 23, 2024 0054 hours Clinical History: Fall Comparison: No prior study is available for comparison. Findings: There is no evidence of intracranial hemorrhage, mass effect or midline shift. There are periventricular white matter hypodensities, compatible with chronic small vessel ischemia. There is mild volume loss. The calvarium is intact. The mastoid air cells and the visualized paranasal sinuses are clear. Impression: 1. No evidence of intracranial hemorrhage, midline shift or calvarial fracture. 2. Periventricular chronic small vessel ischemia and volume loss. 3. Other findings as described above. Suggest clinical correlation and follow up accordingly. Report on maxillofacial CT to follow. Report Electronically Signed By: Yandel Bell 07/23/2024 1:47:40 AM [EST] MRCP>>>
[2024-07-23] MEDS: SODIUM CHLORIDE 0.9% 1000 ML 1,000 ML 100 ML IV (06:19)
[2024-07-23] MEDS: PIPER/TAZO 3.375 GM PREMIX 3.375 GM/50 ML BAG IV ×3 (06:25→21:00)
[2024-07-23] MEDS: carVEDILOL 3.125 MG TABLET 6.25 MG PO ×2 (07:52→16:46)
--- NOTE | 2024-07-23 10:54 | PC.NURSE ---
MRI CALLED AND PT NEXT TO BE DONE
--- NOTE | 2024-07-23 14:03 | XR_ITS ---
Examination: Nuclear medicine hepatobiliary scan, static HIDA scan Date of exam: July 23, 2024 1516 hours INDICATIONS: Cholecystectomy 2008, sepsis, acute renal insufficiency, abnormal liver function tests on laboratory examination today, abrupt termination of the distal common bile duct on MRCP July 23, 2024 Technique And Findings: 5.9 mCi 99m Hepatolite administered intravenously. Serial imaging obtained immediately through 60 minutes. Homogenous uptake in the liver. Common bile duct small bowel activity noted, common bile duct appears enlarged Impression: Enlarged common hepatic common bile duct although contrast is present in small bowel Consider ERCP and biopsies follow-up to exclude malignant stricture at the ampulla
--- NOTE | 2024-07-23 15:53 | PD.RESHP ---
Documentation for date of: 07/23/24 [facility] History of Present Illness History of present illness: Nneka Burciaga is a 74-year-old female with a past medical history of COPD on 2 L home oxygen, HFpEF (55-60% on 11/2023), a-fib on Xarelto, hypertension, and chronic pain who presented to the ED on 07/22 status-post multiple ground-level falls at home. Son present at bedside to help provide additional history. Patient endorses at least 3 ground-level falls on Monday at which patient remembers all episodes, denies loss of consciousness, lightheadedness, or palpitations. States that her lower extremities felt weak and gave out under her and did experience head strike anteriorly on one of the falls. Additionally, son states that when he had come home from work, patient was found down on floor and may have been there for a couple of hours. Patient does have a technician automated equipment at home while son is at work who also noted a fall. Otherwise, patient denies fever, chills, abdominal pain, diarrhea, constipation but does endorse some dysuria and cloudy urine. Of note, she had a cholecystectomy more than 15 years ago. Follows-up with elementary education tutor, Dr. Browning, outpatient and most recently saw last week. In ED, vital signs stable, saturating well on 2 L nasal cannula (noted to be on home O2), WBC 25, ESR 86, CRP 12, procal 5.2, Cr 1.6 (baseline 1.0), CK 3500, AST 134, ALT 54, BNP 395, TSH 0.16, T4 2.18. UA showed turbid urine, 2+ blood, 23 RBC, WBC 966, 3+ bacteria, hyaline casts present. U tox positive for opiates. CT cervical/thoracic/lumbar spine and CT face all negative for acute fractures. CT head negative for acute processes, CT A/P no acute processes. Gallbladder ultrasound: Enlarged CBD 1.2 cm. MRCP: Extrahepatic biliary tract dilatation with abrupt termination at distal CBD. HIDA scan showed a large common hepatic and CBD, although contrast in the small bowel. PMHx: COPD, HFpEF, a-fib, hypertension, chronic pain Medications: cannot recall, asked son to bring in home medications for reconciliation SHx: smokes < 10 cigarettes/day (previously 2 packs/day) for 50 years, no alcohol consumption, no illicit drug use PSHx: cholecystectomy, tympanic membrane ear surgery, and right leg cyst I&D Review of Systems Review of Systems Systems Reviewed: All systems reviewed, normal except as documented Exam Vital Signs Temp Pulse Resp BP Pulse Ox O2 Del Method O2 Flow Rate 97.0 F 61 18 124/47 L 95 Room Air 2 07/23/24 08:01 07/23/24 15:00 07/23/24 15:00 07/23/24 15:00 07/23/24 15:00 07/23/24 15:07/23/24 03:00 Narrative Exam General: AOx3, no acute distress, able to speak full sentences HEENT: NC/AT, mucous membranes moist, bilateral sclera anicteric Cardiovascular: regular rate and rhythm, S1/S2 present, no murmurs appreciated Pulmonary: mild upper airway wheezing, no rales/rhonchi Abdominal: soft, non-tender, non-distended, no rebound/guarding, normal bowel sounds present Musculoskeletal: normal ROM, no peripheral edema Skin: chronic venous stasis changes, warm and dry, intact, no rashes Neuro: CN II-XII intact, no focal deficits Results: Labs 07/24/24 05:57 07/24/24 05:57 Labs: Short CBC 07/23/24 Range/Units 00:31 WBC 24.9 H (3.6-11.0) Thou/mm3 Hgb 11.6 L (12.0-16.0) g/dL Hct 35.8 L (36.0-46.0) % Plt Count 331 (140-440) Thou/mm3 BMP 07/23/24 00:31 Sodium 133 L Potassium 4.6 Chloride 99 Carbon Dioxide 26.7 BUN 20 Creatinine 1.6 H Glucose 102 Calcium 8.9 Cardiac Enzymes 07/23/24 Range/Units 00:31 Total Creatine Kinase 3532 H (34-171) U/L Troponin I < 0.020 (0.0-0.045) ng/mL Liver Function 07/23/24 Range/Units 00:31 Total Bilirubin 2.3 H (0.3-1.2) mg/dL AST 134 H (0-34) U/L ALT 54 H (10-49) U/L Alkaline Phosphatase 137 H (46-116) U/L Albumin 3.7 (3.4-4.8) gm/dL Urine 07/23/24 Range/Units 03:16 Urine Color Yellow (Lt Yel-Yel) Urine Clarity Turbid A (Clear/Hazy) Urine pH 5.5 (5.0-7.0) Ur Specific [place] 1.013 (1.001-1.035) Urine Protein 1+ A (Neg - Trace) Urine Glucose (UA) Negative (Negative) Quality Measures Quality Measures none Advance care planning discussed with:: patient and child Medications Home Medications and Allergies Home Medications ?Medication ?Instructions ?Recorded ?Confirmed ?Type potassium chloride 10 mEq 10 meq PO BID 09/08/17 07/24/24 History capsule,extended release spironolactone 25 mg tablet 25 mg PO QDAY 12/22/20 07/24/24 History furosemide 40 mg tablet See Rx Instructions .Route .COMPLEX 01/26/21 07/24/24 History amiodarone 200 mg tablet 200 mg PO BID 07/15/21 07/24/24 History morphine 30 mg tablet,extended See Rx Instructions .Route 07/15/21 11/15/23 History release .COMPLEX chronic back pain duloxetine 60 mg capsule,delayed 60 mg PO BID 02/28/22 07/24/24 History release gabapentin 100 mg capsule 100 mg PO Q12H 02/28/22 07/24/24 History carvedilol 6.25 mg tablet 6.25 mg PO BIDWM 11/03/22 11/15/23 History buspirone 15 mg tablet 15 mg PO TID PRN Anxiety 11/15/23 07/24/24 History rivaroxaban 20 mg tablet (Xarelto) 20 mg PO HS 11/15/23 11/15/23 History carvedilol 3.125 mg tablet mg 07/24/24 History spironolactone 25 mg tablet 25 mg PO QDAY 07/24/24 07/24/24 History (Aldactone) Allergies Allergy/AdvReac Type Severity Reaction Status Date / Time doxycycline Allergy Verified 07/23/24 00:53 Visit Medications Acetaminophen (Acetaminophen 325 Mg Tablet) 650 mg PO Q6H PRN PRN Reason: PAIN OR FEVER > 100.4 Stop: 08/22/24 15:29 Albuterol/Ipratropium (Albuterol/Ipratropium (Duoneb) Rt Lauren 3 Ml Nebu) 3 ml INH Q2HR PRN PRN Reason: SHORTNESS OF BREATH OR WHEEZE Stop: 08/22/24 15:29 Amiodarone HCl (Amiodarone Hcl 200 Mg Tablet) 200 mg PO BID GHADA Stop: 08/22/24 08:59 Carvedilol (Carvedilol 3.125 Mg Tablet) 6.25 mg PO BIDWM GHADA Stop: 08/22/24 07:59 Last Admin: 07/23/24 07:52 Dose: 6.25 mg Piperacillin/Tazobactam/Dextrose (Zosyn) 3.375 gm in 50 mls @ 12.5 mls/hr IV Q8HR GHADA; Protocol Stop: 07/30/24 13:59 Sodium Chloride (Ns) 1,000 mls @ 125 mls/hr IV .Q8H ONE Stop: 07/23/24 23:49 Methimazole (Methimazole 5 Mg Tablet) 5 mg PO DAILY GHADA Stop: 08/22/24 08:59 Ondansetron HCl (Ondansetron Inj 2 Mg/Ml Inj 2 Ml) 4 mg IV Q6H PRN; Protocol PRN Reason: NAUSEA OR VOMITING Stop: 08/22/24 15:33 Pantoprazole Sodium (Pantoprazole 40 Mg Tablet) 40 mg PO QDAY GHADA Stop: 08/23/24 08:59 Discontinued Medications Sodium Chloride (Ns) 1,000 mls @ 999 mls/hr IV .Q1H1M ONE Stop: 07/23/24 01:14 Last Infusion: 07/23/24 02:49 Dose: Infused Ceftriaxone Sodium/Dextrose (Rocephin/D5w 1gm Iv Premix) 1 gm in 50 mls @ 100 mls/hr IV X1 ONE Stop: 07/23/24 03:31 Last Infusion: 07/23/24 05:14 Dose: Infused Sodium Chloride (Ns) 1,000 mls @ 999 mls/hr IV .Q1H1M ONE Stop: 07/23/24 04:02 Last Infusion: 07/23/24 05:46 Dose: Infused Sodium Chloride (Ns) 1,000 mls @ 100 mls/hr IV .Q10H GHADA Stop: 08/22/24 04:57 Last Admin: 07/23/24 06:19 Dose: 100 mls/hr Piperacillin/Tazobactam/Dextrose (Zosyn) 3.375 gm in 50 mls @ 100 mls/hr IV X1 ONE Stop: 07/23/24 06:29 Last Infusion: 07/23/24 06:55 Dose: Infused Morphine Sulfate (Morphine Sulf Inj 10 Mg/Ml Vial) 4 mg IVP X1 ONE Stop: 07/23/24 00:15 Last Admin: 07/23/24 01:49 Dose: 4 mg Ondansetron HCl (Ondansetron Inj 2 Mg/Ml Inj 2 Ml) 4 mg IV X1 ONE; Protocol Stop: 07/23/24 00:15 Last Admin: 07/23/24 01:47 Dose: 4 mg Rivaroxaban (Rivaroxaban 10 Mg Tablet) 15 mg PO QDAY GHADA Stop: 08/22/24 08:59 Assessment & Plan Plan Nneka Burciaga is a 74-year-old female with a past medical history of COPD on 2 L home oxygen, HFpEF (55-60% on 11/2023), a-fib on Xarelto, hypertension, and chronic pain who presented to the ED on 07/22 status-post multiple ground-level falls at home and found to have enlarged CBD on imaging, admitted for further work-up. #Enlarged CBD #History of cholecystectomy #?Choledocolithiasis #Transaminitis #Hyperbilirubinemia No fever, chills, nausea, vomiting, abdominal pain, change in bowel habits. WBC 25, ESR 86, CRP 12, procal 5.2, AST 134, ALT 54, alk phos 137, T. bili 2.3. Gallbladder ultrasound: Enlarged CBD 1.2 cm. MRCP: Extrahepatic biliary tract dilatation with abrupt termination at distal CBD. HIDA scan showed a large common hepatic and CBD, although contrast in the small bowel. ? GI consulted, appreciate recommendations ? Zosyn 3.375 mg IV q8hr (07/23-) ? Pending possible ERCP ? NPO after midnight #Urinary tract infection UA showed turbid urine, 2+ blood, 23 RBC, WBC 966, 3+ bacteria, hyaline casts present. ? Zosyn 3.375 mg IV q8hr (07/23-) ? Follow-up urine culture #Acute kidney injury, prerenal vs intrarenal May be due to dehydration vs rhabdomyolysis, currently on IVF ? 1 L NS at 125 cc/hr ? Follow-up AM labs ? Avoid nephrotoxic agents, renally dose medications #Rhabdomyolysis Found down at home after fall, may have been for a couple of hours per history. Initial CK 3500, will follow-up AM CK. ? Received 3 L IVF per sepsis protocol ? 1 L NS at 125 cc/hr and will monitor CK in AM and give IVF as needed rather than maintenance fluids given history of CHF #HFpEF (EF 55-60% on 11/2023) Follows-up with Dr. Browning outpatient. Not in exacerbation and not overloaded at this time. BNP 395. ? Cardiology consulted, appreciate recommendations ? Follow-up echo ? Carvedilol 6.25 mg p.o. BIDWM ? Holding lasix ? Pending med rec ? Strict I's and O's, daily weights, low sodium diet, fliud restriction (2 L/day) #Atrial fibrillation, on Xarelto and amiodarone ? Amiodarone 200 mg p.o. BID ? Will hold home AC in anticipation of possible procedure ? Pending med rec #COPD on 2 L home O2 Does not have any inhalers at home per son. ? Duonebs PRN #History of hypertension ? Carvedilol as above #Chronic pain ? Pending med rec Hospital management: Disposition: pending possible ERCP Fluids: 1 L NS at 125 cc/hr Diet: cardiac, low sodium Lines: PIV DVT prophylaxis: SCDs GI prophylaxis: pantoprazole 40 mg po daily CODE STATUS: full code ----- Plan discussed with attending physician Dr. Divya Smith MD PGY-1 Internal Medicine Attending Provider Attestation/Addendum I have discussed and was present for the essential components of the history, physical examination, diagnosis, and treatment plan with the resident. I agree with the patient's care as documented by the resident and amended herein by me. Joel Stokes DO. Although this document has been carefully reviewed, there may still be some phonetic and other typographical errors. These errors are purely grammatical due to imperfections in the software program and should not be construed in any way to compromise the substance of the patient's medical care during this visit.
--- NOTE | 2024-07-23 16:24 | ESCONSULT_ITS ---
<Statement entered by Jason Browning MD - 07/26/24 07:53> I evaluated the patient examined patient admitted to hospital with multiple problems sepsis has history of A-fib now back in sinus rhythm continue the present regimen evidently patient and discussed treatment plan recommendation with the primary team as well as PGY 3 Agree with the treatment plan recommendation as documented by Rain resident physician HPI Data of Consult Requesting Physician: Cas Stokes DO Admitting Provider: Cas Stokes DO Attending Provider: Cas Stokes DO Primary Care Provider: Domenic Mcmahan MD Consult Narrative History of present illness: 74-year-old female with past medical history of COPD on 2L home o2 , CHF last echo on 2020 showed ejection fraction of 50 to 55%, A-fib on anticoagulation xarelto chronic back pain, hypertension came to the ED with chief complaint of fall. In the ED ultrasound showed CBD 1.27 cm MRCP was done which showed abnormal Abnormal extra hepatic biliary tract dilatation with abrupt termination of the distal common bile duct, differential would include malignant neoplasm at the ampulla. Cervical CT was negative for any fracture, head CT was negative for any fracture, his CT was negative for any fracture, lumbar thoracic spine CT?negative for any fracture. Initial vitals BP?115/57, P?60, RR?18, temperature?98. labs-WBC?24.9, hemoglobin?11.6, HCT?35.8,ESR- 86, na-133,cr-1.6 , total bilirubin?2.3, AST?134, ALT?54, alk phos?137, total creatinine 3532, troponin negative, CRP 12.4, BNP 395. Dr. Carrillo is planning to do ERCP. Cardiology consulted for management of fluids in the setting of rhabdo. PMH- as above PSH- Cholecystectomy 2007, Tympanic membrane ear surgery, R leg cyst I&D many yrs ago. SH- prior tobacco use, no alcohol or drug use. She lives at home with her son and receives assistance from a home provider for four hours daily. Allergies: NKDA cc:: cc: Cas Stokes DO Review of Systems Review of Systems Systems Reviewed: All systems reviewed, normal except as documented Narrative Review of Systems: GENERAL: Comfortable adult seen resting comfortably in hospital bed, no acute distress on 2L ofo2 HEENT: Normocephalic, atraumatic. Pupils are equal and reactive. Oral mucosa is moist. NECK: Supple, nontender, no JVD CHEST: Symmetrical, atraumatic and with equal expansion ,Nontender on palpation CARDIOVASCULAR: Heart regular rhythm & rate. S1/S2. no murmur or gallop rub or extra beats. LUNGS: Clear to auscultation bilaterally with symmetrical chest rise. No laboring tachypnea or wheezing. No intercostal subcostal retraction. No rales and no rhonchi. ABDOMEN: Soft, flat, nontender to palpation, no guarding or rebound tenderness. Active and normal bowel sounds. EXTREMITIES:Moves all 4 extremities,No B/L LE edema. SKIN: Warm and dry, no jaundice or rashes noted. NEURO: Patient is AO x 3, Cranial nerves II through XII grossly intact. There is no focal neurologic deficits noted. PSYCHIATRIC: Patient is in normal mood, cooperative, no SI or HI or hallucinations. Exam Vital Signs Temp Pulse Resp BP Pulse Ox O2 Del Method O2 Flow Rate 97.0 F 61 18 124/47 L 95 Room Air 2 07/23/24 08:01 07/23/24 15:00 07/23/24 15:00 07/23/24 15:00 07/23/24 15:00 07/23/24 15:00 07/23/24 03:00 Results Labs 07/23/24 00:31 07/23/24 00:31 Labs: Short CBC 07/23/24 Range/Units 00:31 WBC 24.9 H (3.6-11.0) Thou/mm3 Hgb 11.6 L (12.0-16.0) g/dL Hct 35.8 L (36.0-46.0) % Plt Count 331 (140-440) Thou/mm3 BMP 07/23/24 00:31 Sodium 133 L Potassium 4.6 Chloride 99 Carbon Dioxide 26.7 BUN 20 Creatinine 1.6 H Glucose 102 Calcium 8.9 Cardiac Enzymes 07/23/24 Range/Units 00:31 Total Creatine Kinase 3532 H (34-171) U/L Troponin I < 0.020 (0.0-0.045) ng/mL Liver Function 07/23/24 Range/Units 00:31 Total Bilirubin 2.3 H (0.3-1.2) mg/dL AST 134 H (0-34) U/L ALT 54 H (10-49) U/L Alkaline Phosphatase 137 H (46-116) U/L Albumin 3.7 (3.4-4.8) gm/dL Urine 07/23/24 Range/Units 03:16 Urine Color Yellow (Lt Yel-Yel) Urine Clarity Turbid A (Clear/Hazy) Urine pH 5.5 (5.0-7.0) Ur Specific [place] 1.013 (1.001-1.035) Urine Protein 1+ A (Neg - Trace) Urine Glucose (UA) Negative (Negative) Quality Measures Quality Measures none Advance care planning discussed with:: patient Medications Home Medications and Allergies Home Medications ?Medication ?Instructions ?Recorded ?Confirmed ?Type potassium chloride 10 mEq 10 meq PO BID 09/08/1711/14 History capsule,extended release spironolactone 25 mg tablet 25 mg PO QDAY 12/22/2007/04 History furosemide 40 mg tablet See Rx Instructions .Route . COMPLEX 01/26/21 11/15/23 History amiodarone 200 mg tablet 200 mg PO BID 07/15/2111/14 History morphine 30 mg tablet,extended See Rx Instructions .Ro justus 07/15/21 11/15/23 History release .COMPLEX chronic back pain duloxetine 60 mg capsule,delayed 60 mg PO BID 02/28/22 11/15/23 History release gabapentin 100 mg capsule 100 mg PO TID 02/28/2211/14 History carvedilol 6.25 mg tablet 6.25 mg PO BIDWM 11/03/22 History buspirone 15 mg tablet 15 mg PO TID PRN Anxiety 07/0411/15/23 History rivaroxaban 20 mg tablet (Xarelto) 20 mg PO HS 4 11/15/23 History Allergies Allergy/AdvReac Type Severity Reaction Status Date / Time doxycycline Allergy Verified 07/23/24 00:53 Visit Medications Acetaminophen (Acetaminophen 325 Mg Tablet) 650 mg PO Q6H PRN PRN Reason: PAIN OR FEVER > 100.4 Stop: 08/22/24 15:29 Albuterol/Ipratropium (Albuterol/Ipratropium (Duoneb) Rt Lauren 3 Ml Nebu) 3 ml INH Q2HR PRN PRN Reason: SHORTNESS OF BREATH OR WHEEZE Stop: 08/22/24 15:29 Amiodarone HCl (Amiodarone Hcl 200 Mg Tablet) 200 mg PO BID GHADA Stop: 08/22/24 08:59 Carvedilol (Carvedilol 3.125 Mg Tablet) 6.25 mg PO BIDWM GHADA Stop: 08/22/24 07:59 Last Admin: 07/23/24 07:52 Dose: 6.25 mg Piperacillin/Tazobactam/Dextrose (Zosyn) 3.375 gm in 50 mls @ 12.5 mls/hr IV Q8HR GHADA; Protocol Stop: 07/30/24 13:59 Sodium Chloride (Ns) 1,000 mls @ 125 mls/hr IV .Q8H ONE Stop: 07/23/24 23:49 Methimazole (Methimazole 5 Mg Tablet) 5 mg PO DAILY GHADA Stop: 08/22/24 08:59 Ondansetron HCl (Ondansetron Inj 2 Mg/Ml Inj 2 Ml) 4 mg IV Q6H PRN; Protocol PRN Reason: NAUSEA OR VOMITING Stop: 08/22/24 15:33 Pantoprazole Sodium (Pantoprazole 40 Mg Tablet) 40 mg PO QDAY [facility] Stop: 08/23/24 08:59 Discontinued Medications Sodium Chloride (Ns) 1,000 mls @ 999 mls/hr IV .Q1H1M ONE Stop: 07/23/24 01:14 Last Infusion: 07/23/24 02:49 Dose: Infused Ceftriaxone Sodium/Dextrose (Rocephin/D5w 1gm Iv Premix) 1 gm in 50 mls @ 100 mls/hr IV X1 ONE Stop: 07/23/24 03:31 Last Infusion: 07/23/24 05:14 Dose: Infused Sodium Chloride (Ns) 1,000 mls @ 999 mls/hr IV .Q1H1M ONE Stop: 07/23/24 04:02 Last Infusion: 07/23/24 05:46 Dose: Infused Sodium Chloride (Ns) 1,000 mls @ 100 mls/hr IV .Q10H GHADA Stop: 08/22/24 04:57 Last Admin: 07/23/24 06:19 Dose: 100 mls/hr Piperacillin/Tazobactam/Dextrose (Zosyn) 3.375 gm in 50 mls @ 100 mls/hr IV X1 ONE Stop: 07/23/24 06:29 Last Infusion: 07/23/24 06:55 Dose: Infused Morphine Sulfate (Morphine Sulf Inj 10 Mg/Ml Vial) 4 mg IVP X1 ONE Stop: 07/23/24 00:15 Last Admin: 07/23/24 01:49 Dose: 4 mg Ondansetron HCl (Ondansetron Inj 2 Mg/Ml Inj 2 Ml) 4 mg IV X1 ONE; Protocol Stop: 07/23/24 00:15 Last Admin: 07/23/24 01:47 Dose: 4 mg Rivaroxaban (Rivaroxaban 10 Mg Tablet) 15 mg PO QDAY GHADA Stop: 08/22/24 08:59 Assessment & Plan Plan 74-year-old female with past medical history of COPD on 2L home o2 , CHF last echo on 2020 showed ejection fraction of 50 to 55%, A-fib on anticoagulation xarelto chronic back pain, hypertension came to the ED with chief complaint of fall. In the ED ultrasound showed CBD 1.27 cm MRCP was done which showed abnormal Abnormal extra hepatic biliary tract dilatation with abrupt termination of the distal common bile duct, differential would include malignant neoplasm at the ampulla. Cervical CT was negative for any fracture, head CT was negative for any fracture, his CT was negative for any fracture, lumbar thoracic spine CT?negative for any fracture. Initial vitals BP?115/57, P?60, RR?18, temperature?98. labs-WBC?24.9, hemoglobin?11.6, HCT?35.8,ESR- 86, na-133,cr-1.6 , total bilirubin?2.3, AST?134, ALT?54, alk phos?137, total creatinine 3532, troponin negative, CRP 12.4, BNP 395. Dr. Carrillo is planning to do ERCP. Cardiology consulted for management of fluids in the setting of rhabdo. #h/o CHF -BNP -395 -Echo- (11/20/2023) Normal LV size and function. .Diastolic function present but cannot grade due to AFib. Estimated EF 55-60%, Normal RV size and function. Mild TR. Trace MR. -home meds coreg ,spironalactone -patient received 2L of fluid in ED for Sepsis and Rhabdo , currently on 125 ml/hr of NS , continue the maintainance fluid as she is not heart failure with reduced EF . and currently not on heart failure . #A fib - chadsvac score- 5 -she is amiodarone 200 bid -coreg- 6.25 bid - on xarelto (hold it currently ) Rest of medical problem management as per primary team Discussed the patient with my attending Dr Nam Alanis MD,PGY-3
[2024-07-23] MEDS: SODIUM CHLORIDE 0.9% 1000 ML 1,000 ML 125 ML IV (16:52)
--- NOTE | 2024-07-23 19:30 | PC.NURSE ---
talked to patient and son at bedside, discussed POC, per son will bring list of her medications tomorrow for med rec.
--- NOTE | 2024-07-23 19:50 | PC.NURSE ---
called Dr. Tapia to clarify order, reason for patient to be NPO after midnight, per doctor will look into chart and patient may not need to be NPO after midnight since patient has done the MRCP.
[2024-07-23] MEDS: AMIODARONE HCL 200 MG TABLET PO (20:42)
--- NOTE | 2024-07-23 22:19 | PC.NURSE ---
called Dr. Tapia regarding patient moaning and groaning in pain due to her chronic back pain. Per MD will look into patient's chart. Also notified doctor if we nned to make patient NPO after midnight for a possible procedure tomorrow but per MD will keep patient's diet.
[2024-07-23] MEDS: ACETAMINOPHEN 325 MG TABLET 650 MG PO (22:38)
[2024-07-23] MEDS: GABAPENTIN 100 MG CAPSULE PO (22:38)
[2024-07-23] MEDS: MORPHINE SULF INJ 10 MG/ML VIAL 2 MG IVP (23:05)
[2024-07-23 23:11] LABS: Albumin, Serum 3.1 gm/dL (3.4-4.8); Anion Gap 9 (7-16); BUN/Creatinine Ratio 23 Ratio (12-20); Blood Urea Nitrogen 27 mg/dL (9-23); Calcium 8.3 mg/dL (8.3-10.6); Carbon Dioxide 25.4 mMol/L (20.0-31.0); Chloride 102 mMol/L (98-107); Creatine Kinase 1218 U/L (34-171); Creatinine (Component) 1.2 mg/dL (0.6-1.3); Estimated Creatinine Clearance 47.2 mL/min (>60); Glucose 114 mg/dL (74-106); Osmolality,Calculated 278 (275-295); Phosphorous 3.3 mg/dL (2.4-5.1); Potassium 4.1 mMol/L (3.4-5.1); Sodium 136 mMol/L (136-145); eGFR 47 See Note
[2024-07-24] VITALS (16 sets, daily range): BP systolic 111–140; BP diastolic 46–97; PULSE 48–61; RESP 16–25; TEMP 36.1–36.6; O2SAT 95–99; BMI 39.8; BMI 12.0
--- NOTE | 2024-07-24 00:51 | PC.NURSE ---
called Dr. Jayden alfaro patient complaining of pain in her back 12/20, patient moaning, patient was asleep for about an hour after 2mg of morphine IVP was given but woke up in pain. New orders received.
[2024-07-24] MEDS: LIDOCAINE 5% 1 PATCH TOP (01:17)
[2024-07-24] MEDS: HYDROcodone/APAP 5/325 TABLET 1 TAB PO ×3 (01:17→18:01)
[2024-07-24] MEDS: MORPHINE SULF INJ 10 MG/ML VIAL 2 MG IVP (01:59)
--- NOTE | 2024-07-24 02:29 | PC.NURSE ---
Dr. Tapia saw the patient at bedside, patient was given morphine 2 mg IVP but still patient still moaning in pain states the morphine only helped a little bit. MD assessed patient at bedside, new orders received.
[2024-07-24] MEDS: GABAPENTIN 100 MG CAPSULE 200 MG PO (03:10)
[2024-07-24] MEDS: PIPER/TAZO 3.375 GM PREMIX 3.375 GM/50 ML BAG IV ×3 (05:49→21:09)
[2024-07-24 06:18] LABS: Basophils % (Auto) 0 % (0-2.5); Eosinophils % (Auto) 0 % (0-10); Hematocrit 34.6 % (36.0-46.0); Hemoglobin 10.9 g/dL (12.0-16.0); Immature Granulocytes % (Auto) 1 % (0-0); Immature Granulocytes Auto 0.22 Thou/mm3 (0.00-0.00); Lymphocytes # (Auto) 0.9 Thou/mm3 (1.0-4.8); Lymphocytes % (Auto) 4 % (10-50); Mean Corpuscular HGB Conc 31.5 g/dl (31.0-37.0); Mean Corpuscular Volume 89 fL (80-100); Monocytes # (Auto) 3.1 Thou/mm3 (0.0-0.8); Monocytes % (Auto) 15 % (0-12); Neutrophils # (Auto) 16.7 Thou/mm3 (1.8-7.7); Neutrophils % (Auto) 80 % (37-80); Nucleated Red Blood Cell % 0 /100 WBC (0); Platelet Count 310 Thou/mm3 (140-440); RDW Standard Deviation 50.3 fL (36.4-46.3); Red Blood Count 3.89 Miln/mm3 (4.00-5.20); White Blood Count 20.9 Thou/mm3 (3.6-11.0)
[2024-07-24 06:38] LABS: Alanine Aminotransferase 57 U/L (10-49); Alkaline Phosphatase 110 U/L (46-116); Anion Gap 7 (7-16); Aspartate Amino Transferase 114 U/L (0-34); BUN/Creatinine Ratio 21 Ratio (12-20); Bilirubin,Total 1.1 mg/dL (0.3-1.2); Blood Urea Nitrogen 25 mg/dL (9-23); Calcium 8.7 mg/dL (8.3-10.6); Calcium (Corrected) 9.5 mg/dL (8.5-10.1); Carbon Dioxide 26.6 mMol/L (20.0-31.0); Cardiac Risk Estimate 4.9 RATIO (3.7-5.6); Chloride 101 mMol/L (98-107); Cholesterol 69 mg/dL (132-200); Creatine Kinase 974 U/L (34-171); Creatinine (Component) 1.2 mg/dL (0.6-1.3); Estimated Creatinine Clearance 47.2 mL/min (>60); Globulin 3.1 gm/dL (2.3-3.5); Glucose 102 mg/dL (74-106); HDL Cholesterol 14 mg/dL (40-60); LDL Cholesterol,Calculated 38 mg/dL (0-130); Osmolality,Calculated 274 (275-295); Phosphorous 3.3 mg/dL (2.4-5.1); Potassium 4.5 mMol/L (3.4-5.1); Sodium 135 mMol/L (136-145); Total Protein 6.1 gm/dL (5.7-8.2); Triglycerides 86 mg/dL (30-150); eGFR 47 See Note
[2024-07-24] MEDS: carVEDILOL 3.125 MG TABLET 6.25 MG PO (08:30)
[2024-07-24] MEDS: METHIMAZOLE 5 MG TABLET PO (08:31)
[2024-07-24] MEDS: AMIODARONE HCL 200 MG TABLET PO (08:31)
[2024-07-24] MEDS: PANTOPRAZOLE 40 MG TABLET PO (08:31)
--- NOTE | 2024-07-24 10:06 | ESPR_ITS ---
<Statement entered by Elizabeth Styles MD - 07/24/24 13:53> I discussed with and supervised the pharmacist intern physician who took care of this patient. I personally saw and examined the patient and discussed the assessment and plan with the entire medicine team, including my attending Dr. Goodwin, I agree with most of the assessment and plan as documented below Elizabeth Styles M.D. PGY-2 Documentation for date of: 07/24/24 Subjective Subjective Interval history: No acute overnight events noted. Noted to have chronic back pain was given total of 4 mg of morphine overnight. Restarted home dose of morphine today. Seen and examined at bedside and updated patient that she may have a procedure pending GI recommendations. Leukocytosis improved from 25 to 21, creatinine improved from 1.6 to 1.2, total CK improved from 3500 to 970. Heart rate noted to be in the 40s and 50s with associated drowsiness, EKG showed sinus bradycardia with first-degree AV block. Per cardio recommendations, will decrease amiodarone to 200 mg daily and discontinue Coreg Exam Vital Signs Temp Pulse Resp BP Pulse Ox O2 Del Method O2 Flow Rate 97.6 F 60 20 119/97 H 97 Nasal Cannula 4 07/24/24 08:00 07/24/24 09:48 07/24/24 08:00 07/24/24 08:31 07/24/24 08:00 07/24/24 08:00 07/24/24 08:00 Narrative Exam General: AOx3, no acute distress, able to speak full sentences HEENT: NC/AT, mucous membranes moist, bilateral sclera anicteric Cardiovascular: regular rate and rhythm, S1/S2 present, no murmurs appreciated Pulmonary: mild upper airway wheezing, no rales/rhonchi Abdominal: soft, non-tender, non-distended, no rebound/guarding, normal bowel sounds present Musculoskeletal: normal ROM, no peripheral edema Skin: chronic venous stasis changes, warm and dry, intact, no rashes Neuro: CN II-XII intact, no focal deficits Objective Labs 07/25/24 05:06 07/25/24 05:06 Labs: Laboratory Results - last 24 hr 07/23/24 07/24/24 22:30 05:57 WBC 20.9 H RBC 3.89 L Hgb 10.9 L Hct 34.6 L MCV 89 MCH 28.0 MCHC 31.5 RDW Std Deviation 50.3 H Plt Count 310 Neut % (Auto) 80 Lymph % (Auto) 4 L [place] % (Auto) 15 H Eos % (Auto) 0 Baso % (Auto) 0 Neut # (Auto) 16.7 H Lymph # (Auto) 0.9 L [place] # (Auto) 3.1 H Eos # (Auto) 0.0 Baso # (Auto) 0.0 Immature Gran # (Auto) 0.22 H Absolute Nucleated RBC 0.00 Immature Gran % 1 H Nucleated RBC % 0 Sodium 136 135 L Potassium 4.1 D 4.5 Chloride 102 101 Carbon Dioxide 25.4 26.6 Anion Gap 9 7 BUN 27 H 25 H Creatinine 1.2 1.2 Estim Creat Clear Calc 47.2 L 47.2 L eGFR 47 L 47 L BUN/Creatinine Ratio 23 H 21 H Glucose 114 H 102 Calculated Osmolality 278 274 L Calcium 8.3 8.7 Corrected Calcium 9.0 9.5 Phosphorus 3.3 3.3 Magnesium 2.0 Total Bilirubin 1.1 D AST 114 H ALT 57 H Alkaline Phosphatase 110 D Total Creatine Kinase 1218 H D 974 H D Total Protein 6.1 Albumin 3.1 L D 3.0 L Globulin 3.1 Albumin/Globulin Ratio 1.0 L Triglycerides 86 Cholesterol 69 L LDL Cholesterol, Calc 38 HDL Cholesterol 14 L Cholesterol/HDL Ratio 4.9 Quality Measures Quality Measures none Advance care planning discussed with:: patient Assessment & Plan Assessment Current Active Medications: Generic Name Dose Route Start Last Admin Trade Name Freq PRN Reason Stop Dose Admin Acetaminophen 650 mg 07/23/24 15:30 07/23/24 22:38 Acetaminophen 325 Mg Tablet PO 08/22/24 15:29 650 mg Q6H PRN Administration PAIN OR FEVER > 100.4 Hydrocodone Bitart/Acetaminophen 1 tab 07/24/24 00:48 07/24/24 08:36 Hydrocodone/Apap 5/325 Tablet PO 07/29/24 00:47 1 tab Q6HR PRN Administration PAIN SCALE 4-10(Mod-Sev Albuterol/Ipratropium 3 ml 07/23/24 15:30 Albuterol/Ipratropium (Duoneb) Rt Lauren 3 Ml Nebu INH 08/22/24 15:29 Q2HR PRN SHORTNESS OF BREATH OR WHEEZE Amiodarone HCl 200 mg 07/23/24 09:00 07/24/24 08:31 Amiodarone Hcl 200 Mg Tablet PO 08/22/24 08:59 200 mg BID GHADA Administration Carvedilol 6.25 mg 07/23/24 08:00 07/24/24 08:30 Carvedilol 3.125 Mg Tablet PO 08/22/24 07:59 6.25 mg BIDWM GHADA Administration Gabapentin 100 mg 07/23/24 22:30 07/24/24 06:24 Gabapentin 100 Mg Capsule PO 08/22/24 22:29 Not Given TID GHADA Piperacillin/Tazobactam/Dextrose 3.375 gm in 50 mls @ 12.5 mls/hr 07/23/24 14:00 07/24/24 05:49 Zosyn IV 07/30/24 13:59 12.5 mls/hr Q8HR GHADA Administration Protocol Methimazole 5 mg 07/23/24 09:00 07/24/24 08:31 Methimazole 5 Mg Tablet PO 08/22/24 08:59 5 mg DAILY GHADA Administration Ondansetron HCl 4 mg 07/23/24 15:34 07/23/24 16:49 Ondansetron Inj 2 Mg/Ml Inj 2 Ml IV 08/22/24 15:33 4 mg Q6H PRN Administration NAUSEA OR VOMITING Protocol Pantoprazole Sodium 40 mg 07/24/24 09:00 07/24/24 08:31 Pantoprazole 40 Mg Tablet PO 08/23/24 08:59 40 mg QDAY GHADA Administration Plan Nneka Burciaga is a 74-year-old female with a past medical history of COPD on 2 L home oxygen, HFpEF (55-60% on 11/2023), a-fib on Xarelto, hypertension, and chronic pain who presented to the ED on 07/22 status-post multiple ground-level falls at home and found to have enlarged CBD on imaging, admitted for further work-up. #Enlarged CBD #History of cholecystectomy #? Choledocolithiasis #Transaminitis #Hyperbilirubinemia No fever, chills, nausea, vomiting, abdominal pain, change in bowel habits. WBC 25, ESR 86, CRP 12, procal 5.2, AST 134, ALT 54, alk phos 137, T. bili 2.3. Gallbladder ultrasound: Enlarged CBD 1.2 cm. MRCP: Extrahepatic biliary tract dilatation with abrupt termination at distal CBD. HIDA scan showed a large common hepatic and CBD, although contrast in the small bowel. ? GI consulted, appreciate recommendations ? Zosyn 3.375 mg IV q8hr (07/23-) ? Pending possible ERCP #Urinary tract infection UA showed turbid urine, 2+ blood, 23 RBC, WBC 966, 3+ bacteria, hyaline casts present. ? Zosyn 3.375 mg IV q8hr (07/23-) ? Urine culture growing GNR #Acute kidney injury, prerenal vs intrarenal, resolving May be due to dehydration vs rhabdomyolysis, currently on IVF ? Follow-up AM labs ? Avoid nephrotoxic agents, renally dose medications ? Encourage increase p.o. intake #Rhabdomyolysis, resolving Found down at home after fall, may have been for a couple of hours per history. Initial CK 3500, will follow-up AM CK. ? Received 3 L IVF per sepsis protocol and an additional 1 L afterwards ? Follow-up CK ? Encourage increase p.o. intake #HFpEF (EF 55-60% on 11/2023) Follows-up with Dr. Browning outpatient. Not in exacerbation and not overloaded at this time. BNP 395. ? Cardiology consulted, appreciate recommendations ? Follow-up echo ? Carvedilol 3.125 mg p.o. BIDWM -> HELD ? Spironolactone 25 mg p.o. daily ? Holding lasix ? Strict I's and O's, daily weights, low sodium diet, fliud restriction (2 L/day) #Atrial fibrillation, on Xarelto and amiodarone On 07/24, Heart rate noted to be in the 40s and 50s with associated drowsiness, EKG showed sinus bradycardia with first-degree AV block. Per cardio recommendations, will decrease amiodarone to 200 mg daily and discontinue Coreg ? Amiodarone 200 mg p.o. daily ? Will hold home AC in anticipation of possible procedure #COPD on 2 L home O2 Does not have any inhalers at home per son. ? Duonebs PRN #History of hypertension ? Carvedilol as above #Chronic pain ? Gabapentin 100 mg p.o. 3 times daily ? Duloxetine 60 mg p.o. twice daily ? Morphine sulfate 15 mg p.o. twice daily Hospital management: Disposition: pending possible ERCP Diet: cardiac, low sodium Lines: PIV DVT prophylaxis: SCDs GI prophylaxis: pantoprazole 40 mg po daily CODE STATUS: full code ----- Plan discussed with attending physician Dr. Goodwin and senior resident physician Dr. Stephani Smith MD PGY-1 Internal Medicine Attending Provider Attestation/Addendum I reviewed labs, imaging, EKG, home medications and prior available records. Face to face evaluation was performed by me. I have personally examined the patient and discussed assessment and plan with the IM team. I reviewed the resident note and agree with the plan with exceptions as below. Ground-level fall Acute UTI, gram-negative rods COPD without exacerbation HFpEF EF: 55 to 60%, chronic Atrial fibrillation with controlled ventricular rhythm SAPPHIRE, rhabdomyolysis in the setting of fall CBD duct dilation Transaminitis Continue IV Zosyn Follow-up urine culture: Showed gram-negative rods Creatinine improved. Monitor kidney function. Avoid nephrotoxins. Renally dosed medications. MRCP showed CBD duct dilation. Follow-up GI ID recommendations Trend LFTs: Downtrending Ordered PT
[2024-07-24] MEDS: Morphine Sulf 15 MG TABCR PO ×2 (12:10→20:41)
[2024-07-24 12:51] LABS: Creatine Kinase 703 U/L (34-171)
[2024-07-24] MEDS: GABAPENTIN 100 MG CAPSULE PO ×2 (14:10→21:09)
--- NOTE | 2024-07-24 14:29 | EKG_ITS ---
[facility] Test Date: 2024-07-24 Pat Name: HE DELACRUZ Department: Room: 62A Gender: Female Block Tester: LINH : 1950 Requested By: Robin Lopez Order Number: [id number] Reading MD: Robin Lopez Measurements Intervals [place] Rate: 47 P: 90 NC: 252 QRS: -19 QRSD: 105 T: 15 QT: 418 QTc: 373 Interpretive Statements SINUS BRADYCARDIA WITH FIRST DEGREE AV BLOCK LOW QRS VOLTAGE IN PRECORDIAL LEADS POSSIBLE ANTERIOR MYOCARDIAL INFARCTION , PROBABLY OLD Compared to ECG 07/23/2024 00:20:48 Sinus rhythm no longer present Myocardial infarct finding still present /store/S0/[id number]
--- NOTE | 2024-07-24 14:46 | ESPR_ITS ---
<Statement entered by Jason Browning MD - 07/26/24 07:54> I personally examined the patient evaluated patient has no history of paroxysmal A-fib on amiodarone beta-nathen has bradycardia we will [place] decrease the dosage of amiodarone to 100 once a day stop the beta-nathen for now continue to monitor the patient evaluated patient with treatment plan recommendation as documented by PGY 3 will continue to monitor the patient closely on TeleMed Documentation for date of: 07/24/24 Subjective Subjective Interval history: patient was examined bedside this afternoon, bed side her HR was in between 47- 55 , she was drowsy . EKG showed sinus abel with first degree AV block , will decrease Amio to 200 Q day and discontinue coreg. Exam Vital Signs Temp Pulse Resp BP Pulse Ox O2 Del Method O2 Flow Rate 97.3 F 61 21 H 123/69 97 Nasal Cannula 4 07/24/24 12:00 07/24/24 12:00 07/24/24 12:00 07/24/24 12:00 07/24/24 12:00 07/24/24 12:00 07/24/24 12:00 Narrative Exam GENERAL: Comfortable adult seen resting comfortably in hospital bed, no acute distress on 2L ofo2 HEENT: Normocephalic, atraumatic. Pupils are equal and reactive. Oral mucosa is moist. NECK: Supple, nontender, no JVD CHEST: Symmetrical, atraumatic and with equal expansion ,Nontender on palpation CARDIOVASCULAR:sinus brday . S1/S2. no murmur or gallop rub or extra beats. LUNGS: Clear to auscultation bilaterally with symmetrical chest rise. No laboring tachypnea or wheezing. No intercostal subcostal retraction. No rales and no rhonchi. ABDOMEN: Soft, flat, nontender to palpation, no guarding or rebound tenderness. Active and normal bowel sounds. EXTREMITIES:Moves all 4 extremities,No B/L LE edema. SKIN: Warm and dry, no jaundice or rashes noted. NEURO: Patient is AO x 3, Cranial nerves II through XII grossly intact. There is no focal neurologic deficits noted. PSYCHIATRIC: Patient is in normal mood, cooperative, no SI or HI or hallucinations. Objective Labs 07/24/24 05:57 07/24/24 05:57 Labs: Laboratory Results - last 24 hr 07/23/24 07/24/24 07/24/24 22:30 05:57 12:17 WBC 20.9 H RBC 3.89 L Hgb 10.9 L Hct 34.6 L MCV 89 MCH 28.0 MCHC 31.5 RDW Std Deviation 50.3 H Plt Count 310 Neut % (Auto) 80 Lymph % (Auto) 4 L [place] % (Auto) 15 H Eos % (Auto) 0 Baso % (Auto) 0 Neut # (Auto) 16.7 H Lymph # (Auto) 0.9 L [place] # (Auto) 3.1 H Eos # (Auto) 0.0 Baso # (Auto) 0.0 Immature Gran # (Auto) 0.22 H Absolute Nucleated RBC 0.00 Immature Gran % 1 H Nucleated RBC % 0 Sodium 136 135 L Potassium 4.1 D 4.5 Chloride 102 101 Carbon Dioxide 25.4 26.6 Anion Gap 9 7 BUN 27 H 25 H Creatinine 1.2 1.2 Estim Creat Clear Calc 47.2 L 47.2 L eGFR 47 L 47 L BUN/Creatinine Ratio 23 H 21 H Glucose 114 H 102 Calculated Osmolality 278 274 L Calcium 8.3 8.7 Corrected Calcium 9.0 9.5 Phosphorus 3.3 3.3 Magnesium 2.0 Total Bilirubin 1.1 D AST 114 H ALT 57 H Alkaline Phosphatase 110 D Total Creatine Kinase 1218 H D 974 H D 703 H D Total Protein 6.1 Albumin 3.1 L D 3.0 L Globulin 3.1 Albumin/Globulin Ratio 1.0 L Triglycerides 86 Cholesterol 69 L LDL Cholesterol, Calc 38 HDL Cholesterol 14 L Cholesterol/HDL Ratio 4.9 Quality Measures Quality Measures none Advance care planning discussed with:: patient Assessment & Plan Assessment Current Active Medications: Generic Name Dose Route Start Last Admin Trade Name Freq PRN Reason Stop Dose Admin Acetaminophen 650 mg 07/23/24 15:30 07/23/24 22:38 Acetaminophen 325 Mg Tablet PO 08/22/24 15:29 650 mg Q6H PRN Administration PAIN OR FEVER > 100.4 Hydrocodone Bitart/Acetaminophen 1 tab 07/24/24 00:48 07/24/24 08:36 Hydrocodone/Apap 5/325 Tablet PO 07/29/24 00:47 1 tab Q6HR PRN Administration PAIN SCALE 4-10(Mod-Sev Albuterol/Ipratropium 3 ml 07/23/24 15:30 Albuterol/Ipratropium (Duoneb) Rt Lauren 3 Ml Nebu INH 08/22/24 15:29 Q2HR PRN SHORTNESS OF BREATH OR WHEEZE Amiodarone HCl 200 mg 07/23/24 09:00 07/24/24 08:31 Amiodarone Hcl 200 Mg Tablet PO 08/22/24 08:59 200 mg BID GHADA Administration Buspirone HCl 15 mg 07/24/24 10:57 Buspirone Hcl 5 Mg Tablet PO 08/23/24 10:56 TID PRN Anxiety Carvedilol 3.125 mg 07/24/24 17:30 Carvedilol 3.125 Mg Tablet PO 08/23/24 17:29 BIDWM GHADA Duloxetine HCl 60 mg 07/24/24 21:00 Duloxetine Hcl 30 Mg Capsule PO 08/23/24 20:59 BID GHADA Gabapentin 100 mg 07/23/24 22:30 07/24/24 14:10 Gabapentin 100 Mg Capsule PO 08/22/24 22:29 100 mg TID GHADA Administration Piperacillin/Tazobactam/Dextrose 3.375 gm in 50 mls @ 12.5 mls/hr 07/23/24 14:00 07/24/24 14:10 Zosyn IV 07/30/24 13:59 12.5 mls/hr Q8HR GHADA Administration Protocol Methimazole 5 mg 07/23/24 09:00 07/24/24 08:31 Methimazole 5 Mg Tablet PO 08/22/24 08:59 5 mg DAILY GHADA Administration Morphine Sulfate 15 mg 07/24/24 11:15 07/24/24 12:10 Morphine Sulf 15 Mg Tabcr PO 07/29/24 11:14 15 mg BID GHADA Administration Ondansetron HCl 4 mg 07/23/24 15:34 07/23/24 16:49 Ondansetron Inj 2 Mg/Ml Inj 2 Ml IV 08/22/24 15:33 4 mg Q6H PRN Administration NAUSEA OR VOMITING Protocol Pantoprazole Sodium 40 mg 07/24/24 09:00 07/24/24 08:31 Pantoprazole 40 Mg Tablet PO 08/23/24 08:59 40 mg QDAY GHADA Administration Spironolactone 25 mg 07/25/24 09:00 Spironolactone 25 Mg Tablet PO 08/24/24 08:59 QDAY GHADA Plan 74-year-old female with past medical history of COPD on 2L home o2 , CHF last echo on 2020 showed ejection fraction of 50 to 55%, A-fib on anticoagulation xarelto chronic back pain, hypertension came to the ED with chief complaint of fall. In the ED ultrasound showed CBD 1.27 cm MRCP was done which showed abnormal Abnormal extra hepatic biliary tract dilatation with abrupt termination of the distal common bile duct, differential would include malignant neoplasm at the ampulla. Cervical CT was negative for any fracture, head CT was negative for any fracture, his CT was negative for any fracture, lumbar thoracic spine CT?negative for any fracture. Initial vitals BP?115/57, P?60, RR?18, temperature?98. labs-WBC?24.9, hemoglobin?11.6, HCT?35.8,ESR- 86, na-133,cr-1.6 , total bilirubin?2.3, AST?134, ALT?54, alk phos?137, total creatinine 3532, troponin negative, CRP 12.4, BNP 395. Dr. Carrillo is planning to do ERCP. Cardiology consulted for management of fluids in the setting of rhabdo. #h/o CHF -BNP -395 -Echo- (11/20/2023) Normal LV size and function. .Diastolic function present but cannot grade due to AFib. Estimated EF 55-60%, Normal RV size and function. Mild TR. Trace MR. -home meds coreg ,spironalactone -patient received 2L of fluid in ED for Sepsis and Rhabdo , currently on 125 ml/hr of NS , continue the maintainance fluid as she is not heart failure with reduced EF . and currently not on heart failure . 07/24/24: bed side her HR was in between 47-55 , she was drowsy . EKG showed sinus abel with first degree AV block , will decrease Amio to 200 Q day and discontinue coreg. He CK has decreased . pending Dr Carrillo reccs for ERCP. #A fib - chadsvac score- 5 -she is amiodarone 200 bid -coreg- 6.25 bid - on xarelto (hold it currently ) -07/24/24: will DC coreg for now in setting of bradycardia and change amio to Q day . Rest of medical problem management as per primary team Discussed the patient with my attending Dr Nam Alanis MD,PGY-3
--- NOTE | 2024-07-24 17:08 | PC.SS ---
Rounding Note: Treating UTI infection. GI consultation pending. PT evaluation pending. Possible d/c within 1 day.
[2024-07-24 18:20] LABS: Creatine Kinase 523 U/L (34-171)
[2024-07-24] MEDS: DULoxetine HCL 30 MG CAPSULE 60 MG PO (20:41)
[2024-07-25] VITALS (15 sets, daily range): BP systolic 105–156; BP diastolic 52–74; PULSE 48–97; RESP 18–27; TEMP 35.8–36.2; O2SAT 93–100; BMI 12.0
[2024-07-25] MEDS: HYDROcodone/APAP 5/325 TABLET 1 TAB PO (02:31)
[2024-07-25] MEDS: PIPER/TAZO 3.375 GM PREMIX 3.375 GM/50 ML BAG IV (05:07)
[2024-07-25] MEDS: GABAPENTIN 100 MG CAPSULE PO ×3 (05:07→20:59)
[2024-07-25 05:48] LABS: Basophils % (Auto) 0 % (0-2.5); Eosinophils # (Auto) 0.1 Thou/mm3 (0.0-0.5); Eosinophils % (Auto) 0 % (0-10); Hematocrit 34.6 % (36.0-46.0); Immature Granulocytes % (Auto) 1 % (0-0); Immature Granulocytes Auto 0.15 Thou/mm3 (0.00-0.00); Lymphocytes # (Auto) 0.7 Thou/mm3 (1.0-4.8); Lymphocytes % (Auto) 4 % (10-50); Mean Corpuscular HGB Conc 31.8 g/dl (31.0-37.0); Mean Corpuscular Hemoglobin 28.2 pg (25.0-35.0); Mean Corpuscular Volume 89 fL (80-100); Monocytes # (Auto) 2.6 Thou/mm3 (0.0-0.8); Monocytes % (Auto) 16 % (0-12); Neutrophils # (Auto) 13.3 Thou/mm3 (1.8-7.7); Neutrophils % (Auto) 79 % (37-80); Nucleated Red Blood Cell % 0 /100 WBC (0); Platelet Count 305 Thou/mm3 (140-440); RDW Standard Deviation 50.3 fL (36.4-46.3); White Blood Count 16.8 Thou/mm3 (3.6-11.0)
[2024-07-25 06:21] LABS: Alanine Aminotransferase 58 U/L (10-49); Albumin, Serum 3.1 gm/dL (3.4-4.8); Albumin/Globulin Ratio 0.9 (1.2-2.2); Alkaline Phosphatase 127 U/L (46-116); Anion Gap 9 (7-16); Aspartate Amino Transferase 97 U/L (0-34); BUN/Creatinine Ratio 24 Ratio (12-20); Bilirubin,Total 0.9 mg/dL (0.3-1.2); Blood Urea Nitrogen 24 mg/dL (9-23); Calcium 8.8 mg/dL (8.3-10.6); Calcium (Corrected) 9.5 mg/dL (8.5-10.1); Chloride 100 mMol/L (98-107); Creatine Kinase 338 U/L (34-171); Estimated Creatinine Clearance 56.6 mL/min (>60); Globulin 3.3 gm/dL (2.3-3.5); Glucose 88 mg/dL (74-106); Magnesium 2.1 mg/dL (1.6-2.6); Osmolality,Calculated 274 (275-295); Potassium 4.1 mMol/L (3.4-5.1); Sodium 136 mMol/L (136-145); Total Protein 6.4 gm/dL (5.7-8.2); eGFR 58 See Note
--- NOTE | 2024-07-25 09:00 | PC.NURSE ---
Talked with Dr. Styles about pt mental status, ordered to hold scheduled morphine due to pt being letharigic and decreased mental status.
--- NOTE | 2024-07-25 09:11 | PD.RESPRO ---
Documentation for date of: 07/25/24 Subjective Subjective Interval history: No acute overnight events noted. Seen and examined at bedside in patient endorses feeling pain in her neck, knees, and back. She has home morphine and restarted at lower dose, but she appears to be in pain still given that she had come in with multiple falls. Also had discussion regarding code status as patient was alert and oriented to self, birthdate, year, and place and after thorough discussion, decision was made to change her code status to DNR/DNI. Otherwise, spoke to waiter/waitress captain, Dr. 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 Exam Vital Signs Temp Pulse Resp BP Pulse Ox O2 Del Method O2 Flow Rate 96.4 F L 51 L 21 H 131/55 H 95 Nasal Cannula 2 07/25/24 07:58 07/25/24 07:58 07/25/24 07:58 07/25/24 07:58 07/25/24 07:58 07/25/24 07:58 07/25/24 07:58 Narrative Exam General: AOx3, tired, mild distress from pain, able to speak full sentences HEENT: NC/AT, mucous membranes moist, bilateral sclera anicteric Cardiovascular: regular rate and rhythm, S1/S2 present, no murmurs appreciated Pulmonary: mild upper airway wheezing, no rales/rhonchi Abdominal: obese soft, non-tender, non-distended, no rebound/guarding, normal bowel sounds present Musculoskeletal: normal ROM, no peripheral edema Skin: chronic venous stasis changes, warm and dry, intact, no rashes Neuro: CN II-XII intact, no focal deficits Objective Labs 07/26/24 04:49 07/26/24 04:49 Labs: Laboratory Results - last 24 hr 07/24/24 07/24/24 07/25/24 12:17 17:53 05:06 WBC 16.8 H RBC 3.90 L Hgb 11.0 L Hct 34.6 L MCV 89 MCH 28.2 MCHC 31.8 RDW Std Deviation 50.3 H Plt Count 305 Neut % (Auto) 79 Lymph % (Auto) 4 L [place] % (Auto) 16 H Eos % (Auto) 0 Baso % (Auto) 0 Neut # (Auto) 13.3 H Lymph # (Auto) 0.7 L [place] # (Auto) 2.6 H Eos # (Auto) 0.1 Baso # (Auto) 0.0 Immature Gran # (Auto) 0.15 H Absolute Nucleated RBC 0.00 Immature Gran % 1 H Nucleated RBC % 0 Sodium 136 Potassium 4.1 Chloride 100 Carbon Dioxide 27.0 Anion Gap 9 BUN 24 H Creatinine 1.0 Estim Creat Clear Calc 56.6 L eGFR 58 L BUN/Creatinine Ratio 24 H Glucose 88 Calculated Osmolality 274 L Calcium 8.8 Corrected Calcium 9.5 Phosphorus 3.0 Magnesium 2.1 Total Bilirubin 0.9 AST 97 H ALT 58 H Alkaline Phosphatase 127 H Total Creatine Kinase 703 H D 523 H D 338 H D Total Protein 6.4 Albumin 3.1 L Globulin 3.3 Albumin/Globulin Ratio 0.9 L Quality Measures Quality Measures none Advance care planning discussed with:: patient Assessment & Plan Assessment Current Active Medications: Generic Name Dose Route Start Last Admin Trade Name Freq PRN Reason Stop Dose Admin Acetaminophen 650 mg 07/23/24 15:30 07/23/24 22:38 Acetaminophen 325 Mg Tablet PO 08/22/24 15:29 650 mg Q6H PRN Administration PAIN OR FEVER > 100.4 Hydrocodone Bitart/Acetaminophen 1 tab 07/24/24 00:48 07/25/24 02:31 Hydrocodone/Apap 5/325 Tablet PO 07/29/24 00:47 1 tab Q6HR PRN Administration PAIN SCALE 4-10(Mod-Sev Albuterol/Ipratropium 3 ml 07/25/24 08:45 Albuterol/Ipratropium (Duoneb) Rt Lauren 3 Ml Nebu INH 08/24/24 08:44 Q4HRRT GHADA Amiodarone HCl 200 mg 07/25/24 09:00 Amiodarone Hcl 200 Mg Tablet PO 08/24/24 08:59 QDAY GHADA Buspirone HCl 15 mg 07/24/24 10:57 Buspirone Hcl 5 Mg Tablet PO 08/23/24 10:56 TID PRN Anxiety Duloxetine HCl 60 mg 07/24/24 21:00 07/24/24 20:41 Duloxetine Hcl 30 Mg Capsule PO 08/23/24 20:59 60 mg BID GHADA Administration Gabapentin 100 mg 07/23/24 22:30 07/25/24 05:07 Gabapentin 100 Mg Capsule PO 08/22/24 22:29 100 mg TID GHADA Administration Piperacillin/Tazobactam/Dextrose 3.375 gm in 50 mls @ 12.5 mls/hr 07/23/24 14:00 07/25/24 05:07 Zosyn IV 07/30/24 13:59 12.5 mls/hr Q8HR GHADA Administration Protocol Ceftriaxone Sodium/Dextrose 1 gm in 50 mls @ 100 mls/hr 07/25/24 09:00 Rocephin/D5w 1gm Iv Premix IV 08/01/24 08:59 QDAY GHADA Methimazole 5 mg 07/23/24 09:00 07/24/24 08:31 Methimazole 5 Mg Tablet PO 08/22/24 08:59 5 mg DAILY GHADA Administration Morphine Sulfate 20 mg 07/25/24 09:00 Morphine Sulf 15 Mg Tabcr PO 07/30/24 08:59 BID GHADA Ondansetron HCl 4 mg 07/23/24 15:34 07/23/24 16:49 Ondansetron Inj 2 Mg/Ml Inj 2 Ml IV 08/22/24 15:33 4 mg Q6H PRN Administration NAUSEA OR VOMITING Protocol Pantoprazole Sodium 40 mg 07/24/24 09:00 07/24/24 08:31 Pantoprazole 40 Mg Tablet PO 08/23/24 08:59 40 mg QDAY GHADA Administration Rivaroxaban 20 mg 07/25/24 17:30 Rivaroxaban 10 Mg Tablet PO 08/24/24 17:29 WSUPPER GHADA Spironolactone 25 mg 07/25/24 09:00 Spironolactone 25 Mg Tablet PO 08/24/24 08:59 QDAY GHADA Plan Nneka Burciaga is a 74-year-old female with a past medical history of COPD on 2 L home oxygen, HFpEF (55-60% on 11/2023), a-fib on Xarelto, hypertension, and chronic pain who presented to the ED on 07/22 status-post multiple ground-level falls at home and found to have enlarged CBD on imaging, admitted for further work-up. #Enlarged CBD #History of cholecystectomy #? Choledocolithiasis #Transaminitis #Hyperbilirubinemia No fever, chills, nausea, vomiting, abdominal pain, change in bowel habits. WBC 25, ESR 86, CRP 12, procal 5.2, AST 134, ALT 54, alk phos 137, T. bili 2.3. Gallbladder ultrasound: Enlarged CBD 1.2 cm. MRCP: Extrahepatic biliary tract dilatation with abrupt termination at distal CBD. HIDA scan showed a large common hepatic and CBD, although contrast in the small bowel. Spoke to waiter/waitress captain, Dr. 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 Zosyn (07/23-07/25) ? GI consulted, appreciate recommendations ? Transfer process initiated in order to obtain ERCP with [facility]; otherwise, will have to obtain ERCP here on Monday #Urinary tract infection UA showed turbid urine, 2+ blood, 23 RBC, WBC 966, 3+ bacteria, hyaline casts present. Zosyn (07/23-07/25) ? Ceftriaxone 1 g IV daily (07/25-) ? Urine culture: Klebsiella pneumonia #Acute kidney injury, prerenal vs intrarenal, improving May be due to dehydration vs rhabdomyolysis ? Follow-up AM labs ? Avoid nephrotoxic agents, renally dose medications ? Encourage increased p.o. intake #Rhabdomyolysis, improving Found down at home after fall, may have been for a couple of hours per history. Initial CK 3500, will continue to trend. ? Received 3 L IVF per sepsis protocol and an additional 1 L afterwards ? Follow-up CK ? Encourage increased p.o. intake #HFpEF (EF 55-60% on 11/2023) Follows-up with Dr. Browning outpatient. Not in exacerbation and not overloaded at this time. BNP 395. ? Cardiology consulted, appreciate recommendations ? Follow-up echo ? Carvedilol 3.125 mg p.o. BIDWM -> HELD ? Spironolactone 25 mg p.o. daily ? Holding lasix ? Strict I's and O's, daily weights, low sodium diet, fliud restriction (2 L/day) #Atrial fibrillation, on Xarelto and amiodarone On 07/24, Heart rate noted to be in the 40s and 50s with associated drowsiness, EKG showed sinus bradycardia with first-degree AV block Per cardio recommendations, will decrease amiodarone to 200 mg daily and discontinue Coreg ? Amiodarone 200 mg p.o. daily ? Restarted Xarelto #COPD on 2 L home O2 Does not have any inhalers at home per son. ? Duonebs scheduled #History of hypertension ? Carvedilol as above #Chronic pain ? Gabapentin 100 mg p.o. 3 times daily ? Duloxetine 60 mg p.o. twice daily ? Morphine sulfate 15 mg p.o. twice daily ? [place] 5 q6h prn Hospital management: Disposition: pending possible ERCP Diet: cardiac, low sodium Lines: PIV DVT prophylaxis: SCDs GI prophylaxis: pantoprazole 40 mg po daily CODE STATUS: DNR/DNI ----- Plan discussed with attending physician Dr. Buddy Smith MD PGY-1 Internal Medicine Attending Provider Attestation/Addendum I reviewed labs, imaging, EKG, home medications and prior available records. Face to face evaluation was performed by me. I have personally examined the patient and discussed assessment and plan with the IM team. I reviewed the resident note and agree with the plan with exceptions as below. Ground-level fall Acute UTI, gram-negative rods COPD without exacerbation HFpEF EF: 55 to 60%, chronic Atrial fibrillation with controlled ventricular rhythm SAPPHIRE, rhabdomyolysis in the setting of fall CBD duct dilation Transaminitis Follow-up urine culture: Showed gram-negative rods, identified as Klebsiella. Change antibiotics to ceftriaxone Creatinine improved. Monitor kidney function. Avoid nephrotoxins. Renally dosed medications. Remains in pain. MRCP showed CBD duct dilation. Follow-up GI ID recommendations: May need transfer for [facility]glass ERCP Continue management of pain as needed Trend LFTs: Downtrending Thyroid function is abnormal. Decreased the dose of amiodarone to 200 mg daily per cardiology recommendations Ordered PT: Recommended SNF
[2024-07-25] MEDS: SPIRONOLACTONE 25 MG TABLET PO (09:29)
[2024-07-25] MEDS: AMIODARONE HCL 200 MG TABLET PO (09:30)
[2024-07-25] MEDS: cefTRIAXone/D5w 1gm IV premix 1 GM/50 ML BAG IV (09:30)
[2024-07-25] MEDS: METHIMAZOLE 5 MG TABLET PO (09:30)
[2024-07-25] MEDS: PANTOPRAZOLE 40 MG TABLET PO (09:30)
[2024-07-25] MEDS: DULoxetine HCL 30 MG CAPSULE 60 MG PO ×2 (09:31→20:58)
[2024-07-25] MEDS: ACETAMINOPHEN 325 MG TABLET 650 MG PO (10:26)
--- NOTE | 2024-07-25 11:30 | PC.NURSE ---
Dr. Smith at bedside, pt complaining of generalized pain and moaning/crying. Ordered oral morphine for pain.
[2024-07-25] MEDS: ALBUTEROL/IPRATROPIUM (Duoneb) RT SOL 3 ML NEBU INH ×4 (11:33→22:30)
--- NOTE | 2024-07-25 11:42 | PC.SS ---
SNF referral submitted on [facility]. Preferred SNF is [facility]. Responses are pending.
--- NOTE | 2024-07-25 11:48 | PC.SS ---
PRODUCT SALES REPRESENTATIVE conducted bedside contact with the patient conduct initial assessment and to discuss discharge planning.? Patient confirmed demographic information.? Patient resides at home with son, Santana Moon .? Patient utilizes a walker to assist with ambulation.? Patient utilizes home oxygen.? Patient requires assistance with completion of ADL?s.? Patient identified son, Santana Moon; as surrogate medical decision maker.? Patient?s PCP is Dr. Mcmahan.? Patient?s police commanding officer is Dr. Browning.? Patient utilizes [facility] for medication services.? Discharge plan is for the patient to transition to SNF.? Preferred SNF is [facility].? Patient in possession of ambulance transport coverage.? No further discharge needs identified by the patient.? No further intervention required at this time, social contact worker will be available to address any further concerns.? Next of Kin: Santana Moon D/C Plan: SNF
[2024-07-25] MEDS: Morphine Sulf 15 MG TABCR PO ×2 (12:50→20:59)
--- NOTE | 2024-07-25 13:28 | PC.SS ---
PASSR completed. Patient meets criteria for Level II. PASSR follow up pending.
--- NOTE | 2024-07-25 14:02 | ESPR_ITS ---
<Statement entered by Jason Browning MD - 07/26/24 07:47> I personally examined the patient evaluated with Dr. Alanis PGY 3 agree with the treatment plan recommendation patient is in sinus rhythm rate improved clinically cardiac lutz stable no episodes of A-fib continue present medications and will monitor the patient as an outpatient following discharge Documentation for date of: 07/25/24 Subjective Subjective Interval history: patient was examined bedside this afternoon , her heart rate is currently in 80s , continue to hold coreg . she is complaining of generalized pain in her body , primary team has decreased the dose of her morphine. Exam Vital Signs Temp Pulse Resp BP Pulse Ox O2 Del Method O2 Flow Rate 97.0 F 97 18 108/74 93 L Nasal Cannula 2 07/25/24 12:00 07/25/24 12:00 07/25/24 12:00 07/25/24 12:00 07/25/24 12:00 07/25/24 12:00 07/25/24 12:00 Narrative Exam GENERAL: Comfortable adult seen resting in hospital bed, no acute distress on 2L ofo2 HEENT: Normocephalic, atraumatic. Pupils are equal and reactive. Oral mucosa is moist. NECK: Supple, nontender, no JVD CHEST: Symmetrical, atraumatic and with equal expansion ,Nontender on palpation CARDIOVASCULAR:sinus brday . S1/S2. no murmur or gallop rub or extra beats. LUNGS: Clear to auscultation bilaterally with symmetrical chest rise. No laboring tachypnea or wheezing. No intercostal subcostal retraction. No rales and no rhonchi. ABDOMEN: Soft, flat, nontender to palpation, no guarding or rebound tenderness. Active and normal bowel sounds. EXTREMITIES:Moves all 4 extremities,No B/L LE edema. SKIN: Warm and dry, no jaundice or rashes noted. NEURO: Patient is AO x 3, Cranial nerves II through XII grossly intact. There is no focal neurologic deficits noted. PSYCHIATRIC: Patient is in normal mood, cooperative, no SI or HI or hallucinations. Objective Labs 07/25/24 05:06 07/25/24 05:06 Labs: Laboratory Results - last 24 hr 07/24/24 07/25/24 17:53 05:06 WBC 16.8 H RBC 3.90 L Hgb 11.0 L Hct 34.6 L MCV 89 MCH 28.2 MCHC 31.8 RDW Std Deviation 50.3 H Plt Count 305 Neut % (Auto) 79 Lymph % (Auto) 4 L [place] % (Auto) 16 H Eos % (Auto) 0 Baso % (Auto) 0 Neut # (Auto) 13.3 H Lymph # (Auto) 0.7 L [place] # (Auto) 2.6 H Eos # (Auto) 0.1 Baso # (Auto) 0.0 Immature Gran # (Auto) 0.15 H Absolute Nucleated RBC 0.00 Immature Gran % 1 H Nucleated RBC % 0 Sodium 136 Potassium 4.1 Chloride 100 Carbon Dioxide 27.0 Anion Gap 9 BUN 24 H Creatinine 1.0 Estim Creat Clear Calc 56.6 L eGFR 58 L BUN/Creatinine Ratio 24 H Glucose 88 Calculated Osmolality 274 L Calcium 8.8 Corrected Calcium 9.5 Phosphorus 3.0 Magnesium 2.1 Total Bilirubin 0.9 AST 97 H ALT 58 H Alkaline Phosphatase 127 H Total Creatine Kinase 523 H D 338 H D Total Protein 6.4 Albumin 3.1 L Globulin 3.3 Albumin/Globulin Ratio 0.9 L Quality Measures Quality Measures none Advance care planning discussed with:: patient Assessment & Plan Assessment Current Active Medications: Generic Name Dose Route Start Last Admin Trade Name Freq PRN Reason Stop Dose Admin Acetaminophen 650 mg 07/23/24 15:30 07/25/24 10:26 Acetaminophen 325 Mg Tablet PO 08/22/24 15:29 650 mg Q6H PRN Administration PAIN OR FEVER > 100.4 Protocol Hydrocodone Bitart/Acetaminophen 1 tab 07/25/24 13:50 Hydrocodone/Apap 5/325 Tablet PO 07/29/24 00:47 Q4HR PRN PAIN SCALE 4-10(Mod-Sev Albuterol/Ipratropium 3 ml 07/25/24 08:45 07/25/24 11:33 Albuterol/Ipratropium (Duoneb) Rt Lauren 3 Ml Nebu INH 08/24/24 08:44 3 ml Q4HRRT GHADA Administration Amiodarone HCl 200 mg 07/25/24 09:00 07/25/24 09:30 Amiodarone Hcl 200 Mg Tablet PO 08/24/24 08:59 200 mg QDAY GHADA Administration Buspirone HCl 15 mg 07/24/24 10:57 Buspirone Hcl 5 Mg Tablet PO 08/23/24 10:56 TID PRN Anxiety Duloxetine HCl 60 mg 07/24/24 21:00 07/25/24 09:31 Duloxetine Hcl 30 Mg Capsule PO 08/23/24 20:59 60 mg BID GHADA Administration Gabapentin 100 mg 07/23/24 22:30 07/25/24 13:48 Gabapentin 100 Mg Capsule PO 08/22/24 22:29 100 mg TID GHADA Administration Ceftriaxone Sodium/Dextrose 1 gm in 50 mls @ 100 mls/hr 07/25/24 09:00 07/25/24 09:30 Rocephin/D5w 1gm Iv Premix IV 08/01/24 08:59 100 mls/hr QDAY GHADA Administration Methimazole 5 mg 07/23/24 09:00 07/25/24 09:30 Methimazole 5 Mg Tablet PO 08/22/24 08:59 5 mg DAILY GHADA Administration Morphine Sulfate 15 mg 07/25/24 21:00 Morphine Sulf 15 Mg Tabcr PO 07/30/24 20:59 BID GHADA Ondansetron HCl 4 mg 07/23/24 15:34 07/23/24 16:49 Ondansetron Inj 2 Mg/Ml Inj 2 Ml IV 08/22/24 15:33 4 mg Q6H PRN Administration NAUSEA OR VOMITING Protocol Pantoprazole Sodium 40 mg 07/24/24 09:00 07/25/24 09:30 Pantoprazole 40 Mg Tablet PO 08/23/24 08:59 40 mg QDAY GHADA Administration Rivaroxaban 20 mg 07/25/24 17:30 Rivaroxaban 10 Mg Tablet PO 08/24/24 17:29 WSUPPER GHADA Spironolactone 25 mg 07/25/24 09:00 07/25/24 09:29 Spironolactone 25 Mg Tablet PO 08/24/24 08:59 25 mg QDAY GHADA Administration Plan 74-year-old female with past medical history of COPD on 2L home o2 , CHF last echo on 2020 showed ejection fraction of 50 to 55%, A-fib on anticoagulation xarelto chronic back pain, hypertension came to the ED with chief complaint of fall. In the ED ultrasound showed CBD 1.27 cm MRCP was done which showed abnormal Abnormal extra hepatic biliary tract dilatation with abrupt termination of the distal common bile duct, differential would include malignant neoplasm at the ampulla. Cervical CT was negative for any fracture, head CT was negative for any fracture, his CT was negative for any fracture, lumbar thoracic spine CT?negative for any fracture. Initial vitals BP?115/57, P?60, RR?18, temperature?98. labs-WBC?24.9, hemoglobin?11.6, HCT?35.8,ESR- 86, na-133,cr-1.6 , total bilirubin?2.3, AST?134, ALT?54, alk phos?137, total creatinine 3532, troponin negative, CRP 12.4, BNP 395. Dr. Carrillo is planning to do ERCP. Cardiology consulted for management of fluids in the setting of rhabdo. #h/o CHF -BNP -395 -Echo- (11/20/2023) Normal LV size and function. .Diastolic function present but cannot grade due to AFib. Estimated EF 55-60%, Normal RV size and function. Mild TR. Trace MR. -home meds coreg ,spironalactone -patient received 2L of fluid in ED for Sepsis and Rhabdo , currently on 125 ml/hr of NS , continue the maintainance fluid as she is not heart failure with reduced EF . and currently not on heart failure . 07/24/24: bed side her HR was in between 47-55 , she was drowsy . EKG showed sinus abel with first degree AV block , will decrease Amio to 200 Q day and discontinue coreg. He CK has decreased . pending Dr Carrillo reccs for ERCP. 07/25/2024: her heart rate is currently in 80s , continue to hold coreg . she is complaining of generalized pain in her body , primary team has decreased the dose of her morphine. #A fib - chadsvac score- 5 -she is amiodarone 200 bid -coreg- 6.25 bid - on xarelto (hold it currently ) -07/24/24: will DC coreg for now in setting of bradycardia and change amio to Q day . -07/25/24: continue amio 200 q day. Case discussed with my attending Dr Nam Alanis MD , PGY 3
--- NOTE | 2024-07-25 14:53 | PD.IMCONS ---
HPI Data of Consult Requesting Physician: Randy Goodwin MD Primary Care Provider: Domenic Mcmahan MD Consult Narrative History of present illness: CC: Dilated cbd HPI: Pt is a 74-year-old female with past medical history of COPD on 2L home o2 , CHF last echo on 2020 showed ejection fraction of 50 to 55%, A-fib on anticoagulation xarelto s/p ultrasound showed CBD 1.27 cm MRCP was done which showed abnormal Abnormal extra hepatic biliary tract dilatation with abrupt termination of the distal common bile duct, differential would include malignant neoplasm at the ampulla. hida shows activity in d2, no obstruction. cc:: cc: Randy Goodwin MD Review of Systems Review of Systems Narrative Review of Systems: reviewed Meds Home Medications and Allergies Home Medications ?Medication ?Instructions ?Recorded ?Confirmed ?Type potassium chloride 10 mEq 10 meq PO BID 09/08/17 07/24/24 History capsule,extended release spironolactone 25 mg tablet 25 mg PO QDAY 12/22/20 07/24/24 History furosemide 40 mg tablet See Rx Instructions .Route .COMPLEX 01/26/21 07/24/24 History amiodarone 200 mg tablet 200 mg PO BID 07/15/21 07/24/24 History morphine 30 mg tablet,extended See Rx Instructions .Route 07/15/21 11/15/23 History release .COMPLEX chronic back pain duloxetine 60 mg capsule,delayed 60 mg PO BID 02/28/22 07/24/24 History release gabapentin 100 mg capsule 100 mg PO Q12H 02/28/22 07/24/24 History carvedilol 6.25 mg tablet 6.25 mg PO BIDWM 11/03/22 11/15/23 History buspirone 15 mg tablet 15 mg PO TID PRN Anxiety 11/15/23 07/24/24 History rivaroxaban 20 mg tablet (Xarelto) 20 mg PO HS 11/15/23 07/25/24 History carvedilol 3.125 mg tablet mg 07/24/24 History spironolactone 25 mg tablet 25 mg PO QDAY 07/24/24 07/24/24 History (Aldactone) Allergies Allergy/AdvReac Type Severity Reaction Status Date / Time doxycycline Allergy Verified 07/23/24 00:53 Exam Vital Signs Temp Pulse Resp BP Pulse Ox O2 Del Method O2 Flow Rate 97.0 F 97 18 108/74 93 L Nasal Cannula 2 07/25/24 12:00 07/25/24 12:00 07/25/24 12:00 07/25/24 12:00 07/25/24 12:00 07/25/24 12:00 07/25/24 12:00 Results Labs 07/25/24 05:06 07/25/24 05:06 Labs: Short CBC 07/25/24 Range/Units 05:06 WBC 16.8 H (3.6-11.0) Thou/mm3 Hgb 11.0 L (12.0-16.0) g/dL Hct 34.6 L (36.0-46.0) % Plt Count 305 (140-440) Thou/mm3 BMP 07/25/24 05:06 Sodium 136 Potassium 4.1 Chloride 100 Carbon Dioxide 27.0 BUN 24 H Creatinine 1.0 Glucose 88 Calcium 8.8 Cardiac Enzymes 07/24/24 07/25/24 Range/Units 17:53 05:06 Total Creatine Kinase 523 H D 338 H D (34-171) U/L Liver Function 07/25/24 Range/Units 05:06 Total Bilirubin 0.9 (0.3-1.2) mg/dL AST 97 H (0-34) U/L ALT 58 H (10-49) U/L Alkaline Phosphatase 127 H (46-116) U/L Albumin 3.1 L (3.4-4.8) gm/dL Assessment and Plan Additional Assessment & Plan Additional Plan: 74-year-old female with past medical history of COPD on 2L home o2 , CHF last echo on 2020 showed ejection fraction of 50 to 55%, A-fib on anticoagulation xarelto s/p ultrasound showed CBD 1.27 cm MRCP was done which showed abnormal Abnormal extra hepatic biliary tract dilatation with abrupt termination of the distal common bile duct Impression: Enlarged common hepatic common bile duct although contrast is present in small bowel Consider ERCP and biopsies follow-up to exclude malignant stricture at the ampulla Bili normal Pt does not have CBD obstruction Needs ERCP with spyglass Must get transferred to tertiary center Check [place] 19-9 Call GI with any questions
--- NOTE | 2024-07-25 14:59 | PC.SS ---
Rounding Note: GI recs are pending. Patient receiving IV antibiotics. Possible d/c in 1 more day.
--- NOTE | 2024-07-25 16:12 | PC.CC ---
Addendum entered by Milena Downey RN 07/25/24 19:36: [address] Carpenter and gave update. Addendum entered by Milena Downey RN 07/25/24 19:36: 1927 received call from Samantha schroeder [facility] that they have an open bed. Now she will be presenting the case. Direct number given for Dr. Woodward for peer to peer. Addendum entered by Milena Downey RN 07/25/24 19:20: 1717 received call from Alisa at [facility] that their is only one GI who can perform ERCP with spyglass and he is not available from tomorrow. Therefore, transfer is declined. Addendum entered by Milena Downye RN 07/25/24 17:39: 1735 called [facility], spoke to Katheryn and initiated the transfer. Addendum entered by Milena Downey RN 07/25/24 17:33: 1719 received call from Samantha schroeder [facility] that they dont have any beds available at [place] at this time. Pt is on waitlist until 1999. Once they have the bed TC will present the case. Addendum entered by Milena Downey RN 07/25/24 17:13: 1704 received call from Samantha [facility], gave verbal clinicals. Addendum entered by Milena Downey RN 07/25/24 16:59: 1652 Called [facility], spoke to Mimi and initiated the transfer. Original Note: 1635 clinicals sent to [facility] and [facility]. [address] Smith that pt needs to be transferred for CBD enlargement needs GI services for ERCP.
[2024-07-25] MEDS: RIVAROXABAN 10 MG TABLET 20 MG PO (17:47)
[2024-07-26] VITALS (13 sets, daily range): BP systolic 100–136; BP diastolic 57–80; PULSE 54–107; RESP 18–24; TEMP 36.1–36.6; O2SAT 90–96; BMI 11.0; BMI 39.6
[2024-07-26] MEDS: HYDROcodone/APAP 5/325 TABLET 1 TAB PO ×3 (01:54→20:45)
[2024-07-26] MEDS: ALBUTEROL/IPRATROPIUM (Duoneb) RT SOL 3 ML NEBU INH ×5 (02:55→22:45)
[2024-07-26] MEDS: GABAPENTIN 100 MG CAPSULE PO ×3 (05:17→20:45)
[2024-07-26 05:35] LABS: Basophils % (Auto) 0 % (0-2.5); Eosinophils # (Auto) 0.1 Thou/mm3 (0.0-0.5); Eosinophils % (Auto) 1 % (0-10); Hematocrit 34.7 % (36.0-46.0); Hemoglobin 11.3 g/dL (12.0-16.0); Immature Granulocytes % (Auto) 1 % (0-0); Immature Granulocytes Auto 0.18 Thou/mm3 (0.00-0.00); Lymphocytes # (Auto) 0.9 Thou/mm3 (1.0-4.8); Lymphocytes % (Auto) 6 % (10-50); Mean Corpuscular HGB Conc 32.6 g/dl (31.0-37.0); Mean Corpuscular Hemoglobin 28.1 pg (25.0-35.0); Mean Corpuscular Volume 86 fL (80-100); Monocytes # (Auto) 3.4 Thou/mm3 (0.0-0.8); Monocytes % (Auto) 21 % (0-12); Neutrophils # (Auto) 11.3 Thou/mm3 (1.8-7.7); Neutrophils % (Auto) 71 % (37-80); Nucleated Red Blood Cell % 0 /100 WBC (0); Platelet Count 349 Thou/mm3 (140-440); RDW Standard Deviation 49.5 fL (36.4-46.3); Red Blood Count 4.02 Miln/mm3 (4.00-5.20); White Blood Count 15.8 Thou/mm3 (3.6-11.0)
[2024-07-26 06:04] LABS: Alanine Aminotransferase 63 U/L (10-49); Albumin, Serum 2.9 gm/dL (3.4-4.8); Albumin/Globulin Ratio 0.9 (1.2-2.2); Alkaline Phosphatase 157 U/L (46-116); Anion Gap 7 (7-16); Aspartate Amino Transferase 117 U/L (0-34); BUN/Creatinine Ratio 24 Ratio (12-20); Bilirubin,Total 0.9 mg/dL (0.3-1.2); Blood Urea Nitrogen 22 mg/dL (9-23); Calcium 8.5 mg/dL (8.3-10.6); Calcium (Corrected) 9.4 mg/dL (8.5-10.1); Carbon Dioxide 29.1 mMol/L (20.0-31.0); Chloride 101 mMol/L (98-107); Creatinine (Component) 0.9 mg/dL (0.6-1.3); Estimated Creatinine Clearance 62.9 mL/min (>60); Globulin 3.2 gm/dL (2.3-3.5); Glucose 92 mg/dL (74-106); Magnesium 2.1 mg/dL (1.6-2.6); Osmolality,Calculated 277 (275-295); Phosphorous 2.3 mg/dL (2.4-5.1); Potassium 4.2 mMol/L (3.4-5.1); Sodium 137 mMol/L (136-145); Total Protein 6.1 gm/dL (5.7-8.2); eGFR > 60 See Note
--- NOTE | 2024-07-26 08:29 | PC.CM ---
Addendum entered by Lawanda Harris RN 07/26/24 14:32: 1430 [facility] declined patient due to capacity. I spoke to Dr. Goodwin and I let him know that patient has declined by 4 facilities. states we can put transfer on hold at this time. Dr. Carrillo plans on doing an ERCP on Monday. Dr. Goodwin states they will re-evaluate after the ERCP. Addendum entered by Lawanda Harris RN 07/26/24 13:05: 1230 I called [facility] and initiated a transfer. I faxed over information. [address] Goodwin and Dr. Smith to discuss transfer. I let them know patient has been declined by [facility], and [facility]. Dr. Goodwin states Dr. Carrillo states if patient not able to transfer he plans on doing an ERCP on Monday. I let Dr. Goodwin know I can try a couple of tertiary centers, but I do not think patient will be accepted when we have not even done an ERCP. Dr. Goodwin states he understands and he will speak to Dr. Carrillo to see if he can do anything sooner. Addendum entered by Lawanda Harris RN 07/26/24 08:42: I initiated transfer with [facility] and I spoke to transfer nurse Tess. She states they are at capacity and they declined patient. Original Note: Patient needs transfer for ERCP with a spyglass. Patient was declined by [facility].
--- NOTE | 2024-07-26 08:52 | PC.SS ---
Update: Possible transfer for ERCP procedure.
[2024-07-26] MEDS: DULoxetine HCL 30 MG CAPSULE 60 MG PO ×2 (09:15→20:45)
[2024-07-26] MEDS: Morphine Sulf 15 MG TABCR PO ×2 (09:15→10:29)
[2024-07-26] MEDS: SPIRONOLACTONE 25 MG TABLET PO (09:16)
[2024-07-26] MEDS: PANTOPRAZOLE 40 MG TABLET PO (09:16)
[2024-07-26] MEDS: METHIMAZOLE 5 MG TABLET PO (09:16)
[2024-07-26] MEDS: cefTRIAXone/D5w 1gm IV premix 1 GM/50 ML BAG IV (09:16)
[2024-07-26 10:06] LABS: Creatine Kinase 232 U/L (34-171)
--- NOTE | 2024-07-26 10:34 | ESPR_ITS ---
Documentation for date of: 07/26/24 Subjective Subjective Interval history: No acute overnight events noted. Seen and examined at bedside and patient continues to be in significant abdominal pain, so her morphine dosage was increased from 15 mg twice daily to 15 mg in the morning and 30 mg at night. Per rehabilitation case coordinator, at least three facilities have declined the patient for ERCP with [facility] and updated in-house pre kindergarten teacher, Dr. Carrillo. If unable to transfer out by Monday, then ERCP can be done earliest on this upcoming Monday. Heart rate noted to be in high 50s in AM so amiodarone dose was held and heart rate increased to low 100s in early afternoon so amidoarone 200 mg x1 was given. Otherwise, LFTs uptrending, ALP untrending. Total CK improving. Leukocytosis improving and no fevers overnight. Exam Vital Signs Temp Pulse Resp BP Pulse Ox O2 Del Method O2 Flow Rate 97.6 F 59 L 24 H 118/64 95 Nasal Cannula 4 07/26/24 08:00 07/26/24 10:12 07/26/24 10:12 07/26/24 09:16 07/26/24 10:12 07/26/24 08:00 07/26/24 10:12 Narrative Exam General: AOx3, tired, mild distress from pain, able to speak full sentences HEENT: NC/AT, mucous membranes moist, bilateral sclera anicteric Cardiovascular: regular rate and rhythm, S1/S2 present, no murmurs appreciated Pulmonary: mild upper airway wheezing, no rales/rhonchi Abdominal: obese soft, non-tender, non-distended, no rebound/guarding, normal bowel sounds present Musculoskeletal: normal ROM, no peripheral edema Skin: chronic venous stasis changes, warm and dry, intact, no rashes Neuro: CN II-XII intact, no focal deficits Objective Labs 07/27/24 05:46 07/27/24 05:46 Labs: Laboratory Results - last 24 hr 07/26/24 04:49 WBC 15.8 H RBC 4.02 Hgb 11.3 L Hct 34.7 L MCV 86 MCH 28.1 MCHC 32.6 RDW Std Deviation 49.5 H Plt Count 349 D Neut % (Auto) 71 Lymph % (Auto) 6 L Chambers % (Auto) 21 H Eos % (Auto) 1 Baso % (Auto) 0 Neut # (Auto) 11.3 H Lymph # (Auto) 0.9 L [place] # (Auto) 3.4 H Eos # (Auto) 0.1 Baso # (Auto) 0.0 Immature Gran # (Auto) 0.18 H Absolute Nucleated RBC 0.00 Immature Gran % 1 H Nucleated RBC % 0 Sodium 137 Potassium 4.2 Chloride 101 Carbon Dioxide 29.1 Anion Gap 7 BUN 22 Creatinine 0.9 Estim Creat Clear Calc 62.9 eGFR > 60 BUN/Creatinine Ratio 24 H Glucose 92 Calculated Osmolality 277 Calcium 8.5 Corrected Calcium 9.4 Phosphorus 2.3 L Magnesium 2.1 Total Bilirubin 0.9 AST 117 H ALT 63 H Alkaline Phosphatase 157 H D Total Protein 6.1 Albumin 2.9 L Globulin 3.2 Albumin/Globulin Ratio 0.9 L Quality Measures Quality Measures none Advance care planning discussed with:: patient Assessment & Plan Assessment Current Active Medications: Generic Name Dose Route Start Last Admin Trade Name Freq PRN Reason Stop Dose Admin Acetaminophen 650 mg 07/23/24 15:30 07/25/24 10:26 Acetaminophen 325 Mg Tablet PO 08/22/24 15:29 650 mg Q6H PRN Administration PAIN OR FEVER > 100.4 Protocol Hydrocodone Bitart/Acetaminophen 1 tab 07/25/24 13:50 07/26/24 01:54 Hydrocodone/Apap 5/325 Tablet PO 07/29/24 00:47 1 tab Q4HR PRN Administration PAIN SCALE 4-10(Mod-Sev Albuterol/Ipratropium 3 ml 07/25/24 08:45 07/26/24 10:10 Albuterol/Ipratropium (Duoneb) Rt Lauren 3 Ml Nebu INH 08/24/24 08:44 3 ml Q4HRRT GHADA Administration Amiodarone HCl 200 mg 07/25/24 09:00 07/26/24 09:14 Amiodarone Hcl 200 Mg Tablet PO 08/24/24 08:59 Not Given QDAY GHADA Buspirone HCl 15 mg 07/24/24 10:57 Buspirone Hcl 5 Mg Tablet PO 08/23/24 10:56 TID PRN Anxiety Duloxetine HCl 60 mg 07/24/24 21:00 07/26/24 09:15 Duloxetine Hcl 30 Mg Capsule PO 08/23/24 20:59 60 mg BID GHADA Administration Gabapentin 100 mg 05/13/25 22:30 07/26/24 05:17 Gabapentin 100 Mg Capsule PO 08/22/24 22:29 100 mg TID GHADA Administration Ceftriaxone Sodium/Dextrose 1 gm in 50 mls @ 100 mls/hr 07/25/24 09:00 07/26/24 09:16 Rocephin/D5w 1gm Iv Premix IV 08/01/24 08:59 100 mls/hr QDAY GHADA Administration Methimazole 5 mg 07/23/24 09:00 07/26/24 09:16 Methimazole 5 Mg Tablet PO 08/22/24 08:59 5 mg DAILY GHADA Administration Morphine Sulfate 15 mg 07/27/24 09:00 Morphine Sulf 15 Mg Tabcr PO 08/01/24 08:59 QDAY GHADA Protocol Morphine Sulfate 30 mg 07/27/24 21:00 Morphine Sulf 30 Mg Tabcr PO 08/01/24 20:59 QPM GHADA Protocol Ondansetron HCl 4 mg 07/23/24 15:34 07/23/24 16:49 Ondansetron Inj 2 Mg/Ml Inj 2 Ml IV 08/22/24 15:33 4 mg Q6H PRN Administration NAUSEA OR VOMITING Protocol Pantoprazole Sodium 40 mg 07/24/24 09:00 07/26/24 09:16 Pantoprazole 40 Mg Tablet PO 08/23/24 08:59 40 mg QDAY GHADA Administration Rivaroxaban 20 mg 07/25/24 17:30 07/25/24 17:47 Rivaroxaban 10 Mg Tablet PO 08/24/24 17:29 20 mg WSUPPER GHADA Administration Spironolactone 25 mg 07/25/24 09:00 07/26/24 09:16 Spironolactone 25 Mg Tablet PO 08/24/24 08:59 25 mg QDAY GHADA Administration Plan Nneka Burciaga is a 74-year-old female with a past medical history of COPD on 2 L home oxygen, HFpEF (55-60% on 11/2023), a-fib on Xarelto, hypertension, and chronic pain who presented to the ED on 07/22 status-post multiple ground-level falls at home and found to have enlarged CBD on imaging, admitted for further work-up. #Enlarged CBD #History of cholecystectomy #? Choledocolithiasis #Transaminitis #Hyperbilirubinemia No fever, chills, nausea, vomiting, abdominal pain, change in bowel habits. WBC 25, ESR 86, CRP 12, procal 5.2, AST 134, ALT 54, alk phos 137, T. bili 2.3. Gallbladder ultrasound: Enlarged CBD 1.2 cm. MRCP: Extrahepatic biliary tract dilatation with abrupt termination at distal CBD. HIDA scan showed a large common hepatic and CBD, although contrast in the small bowel. Spoke to pre kindergarten teacher, Dr. 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 Zosyn (07/23-07/25) ? GI consulted, appreciate recommendations ? Transfer process initiated in order to obtain ERCP with [facility]; otherwise, will have to obtain ERCP here on Monday #Urinary tract infection UA showed turbid urine, 2+ blood, 23 RBC, WBC 966, 3+ bacteria, hyaline casts present. Zosyn (07/23-07/25) ? Ceftriaxone 1 g IV daily (07/25-) ? Urine culture: Klebsiella pneumonia #Acute kidney injury, prerenal vs intrarenal, improving May be due to dehydration vs rhabdomyolysis ? Follow-up AM labs ? Avoid nephrotoxic agents, renally dose medications ? Encourage increased p.o. intake #Rhabdomyolysis, improving Found down at home after fall, may have been for a couple of hours per history. Initial CK 3500, will continue to trend. ? Received 3 L IVF per sepsis protocol and an additional 1 L afterwards ? Follow-up CK ? Encourage increased p.o. intake #HFpEF (EF 55-60% on 11/2023) Follows-up with Dr. Browning outpatient. Not in exacerbation and not overloaded at this time. BNP 395. ? Cardiology consulted, appreciate recommendations ? Follow-up echo ? Carvedilol 3.125 mg p.o. BIDWM -> HELD ? Spironolactone 25 mg p.o. daily ? Holding lasix ? Strict I's and O's, daily weights, low sodium diet, fliud restriction (2 L/day) #Atrial fibrillation, on Xarelto and amiodarone On 07/24, Heart rate noted to be in the 40s and 50s with associated drowsiness, EKG showed sinus bradycardia with first-degree AV block Per cardio recommendations, will decrease amiodarone to 200 mg daily and discontinue Coreg ? Amiodarone 200 mg p.o. daily ? Restarted Xarelto #COPD on 2 L home O2 Does not have any inhalers at home per son. ? Duonebs scheduled #History of hypertension ? Carvedilol as above #Chronic pain ? Gabapentin 100 mg p.o. 3 times daily ? Duloxetine 60 mg p.o. twice daily ? Morphine sulfate 15 mg p.o. in AM and 30 mg in PM ? Brimson 5 q6h prn Hospital management: Disposition: pending possible transfer for ERCP with [facility] Diet: cardiac, low sodium Lines: PIV DVT prophylaxis: SCDs GI prophylaxis: pantoprazole 40 mg po daily CODE STATUS: DNR/DNI ----- Plan discussed with attending physician Dr. Buddy Smith MD PGY-1 Internal Medicine Attending Provider Attestation/Addendum I reviewed labs, imaging, EKG, home medications and prior available records. Face to face evaluation was performed by me. I have personally examined the patient and discussed assessment and plan with the IM team. I reviewed the resident note and agree with the plan with exceptions as below. Ground-level fall Acute UTI, gram-negative rods COPD without exacerbation HFpEF EF: 55 to 60%, chronic Atrial fibrillation with controlled ventricular rhythm SAPPHIRE, rhabdomyolysis in the setting of fall CBD duct dilation Transaminitis Bradycardia, possibly due to amiodarone Follow-up urine culture: Showed gram-negative rods, identified as Klebsiella. Change antibiotics to ceftriaxone Creatinine improved. Monitor kidney function. Avoid nephrotoxins. Renally dosed medications. Remains in pain. MRCP showed CBD duct dilation. Follow-up GI ID recommendations: May need transfer for [facility] ERCP. Initiated transfer process and discussed with transfer nurse: Called multiple centers without success. Discussed with Dr. Carrillo again: Cannot do the ERCP prior to next Monday. She has significant severe pain requiring IV opiates and frequent dosing Trend LFTs: Downtrending Thyroid function is abnormal. Decreased the dose of amiodarone to 200 mg daily per cardiology recommendations Ordered PT: Recommended SNF
--- NOTE | 2024-07-26 11:58 | ESPR_ITS ---
<Statement entered by Jason Browning MD - 07/26/24 19:30> The patient examined appears to doing much better not having chest pain shortness of breath atrial fibrillation heart rate have increased since stopping amiodarone. And also beta-blockers continue amiodarone but hold off beta- blockers for now patient is awaiting ERCP continue medical management will continue to follow the patient agree with treatment plan recommendation as documented by PGY 3 Documentation for date of: 07/26/24 Subjective Subjective Interval history: patient examined bedside this morning , she is pending transfer for ERCP with [facility] as per Dr. Carrillo if she is not able to transfer by Monday then he will do ERCP in the hospital. Earlier her heart rate was in 50s they held the amiodarone and her heart rate went up to 100 so amiodarone Q day was given. Exam Vital Signs Temp Pulse Resp BP Pulse Ox O2 Del Method O2 Flow Rate 97.6 F 59 L 24 H 118/64 95 Nasal Cannula 4 07/26/24 08:00 07/26/24 10:12 07/26/24 10:12 07/26/24 09:16 07/26/24 10:12 07/26/24 08:00 07/26/24 10:12 Narrative Exam GENERAL: Comfortable adult seen resting in hospital bed, on 2L ofo2 HEENT: Normocephalic, atraumatic. Pupils are equal and reactive. Oral mucosa is moist. NECK: Supple, nontender, no JVD CHEST: Symmetrical, atraumatic and with equal expansion ,Nontender on palpation CARDIOVASCULAR:sinus brday . S1/S2. no murmur or gallop rub or extra beats. LUNGS: Bilateral wheezing heard ABDOMEN: Soft, flat, nontender to palpation, no guarding or rebound tenderness. Active and normal bowel sounds. EXTREMITIES:Moves all 4 extremities,No B/L LE edema. SKIN: Warm and dry, no jaundice or rashes noted. NEURO: Patient is AO x 3, Cranial nerves II through XII grossly intact. There is no focal neurologic deficits noted. PSYCHIATRIC: Patient is in normal mood, cooperative, no SI or HI or hallucinations. Objective Labs 07/26/24 04:49 07/26/24 04:49 Labs: Laboratory Results - last 24 hr 07/26/24 04:49 WBC 15.8 H RBC 4.02 Hgb 11.3 L Hct 34.7 L MCV 86 MCH 28.1 MCHC 32.6 RDW Std Deviation 49.5 H Plt Count 349 D Neut % (Auto) 71 Lymph % (Auto) 6 L [place] % (Auto) 21 H Eos % (Auto) 1 Baso % (Auto) 0 Neut # (Auto) 11.3 H Lymph # (Auto) 0.9 L [place] # (Auto) 3.4 H Eos # (Auto) 0.1 Baso # (Auto) 0.0 Immature Gran # (Auto) 0.18 H Absolute Nucleated RBC 0.00 Immature Gran % 1 H Nucleated RBC % 0 Sodium 137 Potassium 4.2 Chloride 101 Carbon Dioxide 29.1 Anion Gap 7 BUN 22 Creatinine 0.9 Estim Creat Clear Calc 62.9 eGFR > 60 BUN/Creatinine Ratio 24 H Glucose 92 Calculated Osmolality 277 Calcium 8.5 Corrected Calcium 9.4 Phosphorus 2.3 L Magnesium 2.1 Total Bilirubin 0.9 AST 117 H ALT 63 H Alkaline Phosphatase 157 H D Total Creatine Kinase 232 H D Total Protein 6.1 Albumin 2.9 L Globulin 3.2 Albumin/Globulin Ratio 0.9 L Quality Measures Quality Measures none Advance care planning discussed with:: patient Assessment & Plan Assessment Current Active Medications: Generic Name Dose Route Start Last Admin Trade Name Freq PRN Reason Stop Dose Admin Acetaminophen 650 mg 07/23/24 15:30 07/25/24 10:26 Acetaminophen 325 Mg Tablet PO 08/22/24 15:29 650 mg Q6H PRN Administration PAIN OR FEVER > 100.4 Protocol Hydrocodone Bitart/Acetaminophen 1 tab 07/25/24 13:50 07/26/24 01:54 Hydrocodone/Apap 5/325 Tablet PO 07/29/24 00:47 1 tab Q4HR PRN Administration PAIN SCALE 4-10(Mod-Sev Albuterol/Ipratropium 3 ml 07/25/24 08:45 07/26/24 10:10 Albuterol/Ipratropium (Duoneb) Rt Lauren 3 Ml Nebu INH 08/24/24 08:44 3 ml Q4HRRT GHADA Administration Amiodarone HCl 200 mg 07/25/24 09:00 07/26/24 09:14 Amiodarone Hcl 200 Mg Tablet PO 08/24/24 08:59 Not Given QDAY GHADA Buspirone HCl 15 mg 07/24/24 10:57 Buspirone Hcl 5 Mg Tablet PO 08/23/24 10:56 TID PRN Anxiety Duloxetine HCl 60 mg 07/24/24 21:00 07/26/24 09:15 Duloxetine Hcl 30 Mg Capsule PO 08/23/24 20:59 60 mg BID GHADA Administration Gabapentin 100 mg 07/23/24 22:30 07/26/24 05:17 Gabapentin 100 Mg Capsule PO 08/22/24 22:29 100 mg TID GHADA Administration Ceftriaxone Sodium/Dextrose 1 gm in 50 mls @ 100 mls/hr 07/25/24 09:00 07/26/24 09:16 Rocephin/D5w 1gm Iv Premix IV 08/01/24 08:59 100 mls/hr QDAY GHADA Administration Methimazole 5 mg 07/23/24 09:00 07/26/24 09:16 Methimazole 5 Mg Tablet PO 08/22/24 08:59 5 mg DAILY GHADA Administration Morphine Sulfate 15 mg 07/27/24 09:00 Morphine Sulf 15 Mg Tabcr PO 08/01/24 08:59 QDAY GHADA Protocol Morphine Sulfate 30 mg 07/27/24 21:00 Morphine Sulf 30 Mg Tabcr PO 08/01/24 20:59 QPM GHADA Protocol Ondansetron HCl 4 mg 07/23/24 15:34 07/23/24 16:49 Ondansetron Inj 2 Mg/Ml Inj 2 Ml IV 08/22/24 15:33 4 mg Q6H PRN Administration NAUSEA OR VOMITING Protocol Pantoprazole Sodium 40 mg 07/24/24 09:00 07/26/24 09:16 Pantoprazole 40 Mg Tablet PO 08/23/24 08:59 40 mg QDAY GHADA Administration Rivaroxaban 20 mg 07/25/24 17:30 07/25/24 17:47 Rivaroxaban 10 Mg Tablet PO 08/24/24 17:29 20 mg WSUPPER GHADA Administration Spironolactone 25 mg 07/25/24 09:00 07/26/24 09:16 Spironolactone 25 Mg Tablet PO 08/24/24 08:59 25 mg QDAY GHADA Administration Plan 74-year-old female with past medical history of COPD on 2L home o2 , CHF last echo on 2020 showed ejection fraction of 50 to 55%, A-fib on anticoagulation xarelto chronic back pain, hypertension came to the ED with chief complaint of fall. In the ED ultrasound showed CBD 1.27 cm MRCP was done which showed abnormal Abnormal extra hepatic biliary tract dilatation with abrupt termination of the distal common bile duct, differential would include malignant neoplasm at the ampulla. Cervical CT was negative for any fracture, head CT was negative for any fracture, his CT was negative for any fracture, lumbar thoracic spine CT?negative for any fracture. Initial vitals BP?115/57, P?60, RR?18, temperature?98. labs-WBC?24.9, hemoglobin?11.6, HCT?35.8,ESR- 86, na-133,cr-1.6 , total bilirubin?2.3, AST?134, ALT?54, alk phos?137, total creatinine 3532, troponin negative, CRP 12.4, BNP 395. Dr. Carrillo is planning to do ERCP. Cardiology consulted for management of fluids in the setting of rhabdo. #h/o CHF -BNP -395 -Echo- (11/20/2023) Normal LV size and function. .Diastolic function present but cannot grade due to AFib. Estimated EF 55-60%, Normal RV size and function. Mild TR. Trace MR. -home meds coreg ,spironalactone -patient received 2L of fluid in ED for Sepsis and Rhabdo , currently on 125 ml/hr of NS , continue the maintainance fluid as she is not heart failure with reduced EF . and currently not on heart failure . 07/24/24: bed side her HR was in between 47-55 , she was drowsy . EKG showed sinus abel with first degree AV block , will decrease Amio to 200 Q day and discontinue coreg. He CK has decreased . pending Dr Carrillo reccs for ERCP. 07/25/2024: her heart rate is currently in 80s , continue to hold coreg . she is complaining of generalized pain in her body , primary team has decreased the dose of her morphine. 07/26/24: she is pending transfer for ERCP with [facility] as per Dr. Carrillo if she is not able to transfer by Monday then he will do ERCP in the hospital. Earlier her heart rate was in 50s they held the amiodarone and her heart rate went up to 100 so amiodarone Q day was given. #A fib - chadsvac score- 5 -she is amiodarone 200 bid -coreg- 6.25 bid - on xarelto -07/24/24: will DC coreg for now in setting of bradycardia and change amio to Q day . -07/25/24: continue amio 200 q day. -07/26/24: continue amio 200 q day. Case discussed with my attending Dr Nam Alanis MD , PGY 3
--- NOTE | 2024-07-26 14:18 | PC.SS ---
Rounding Note: Transfer on hold. Plan is for Dr. Carrillo to perform ERCP on Monday.
[2024-07-26] MEDS: AMIODARONE HCL 200 MG TABLET PO (15:47)
--- NOTE | 2024-07-26 17:04 | PC.SS ---
[facility] follow up completed. [facility] closed on line.
[2024-07-26] MEDS: RIVAROXABAN 10 MG TABLET 20 MG PO (18:08)
[2024-07-27] VITALS (12 sets, daily range): BP systolic 108–156; BP diastolic 61–84; PULSE 58–110; RESP 17–28; TEMP 36.1–36.7; O2SAT 90–95; BMI 40.1
[2024-07-27] MEDS: HYDROcodone/APAP 5/325 TABLET 1 TAB PO ×4 (01:25→16:55)
[2024-07-27] MEDS: ALBUTEROL/IPRATROPIUM (Duoneb) RT SOL 3 ML NEBU INH ×3 (02:30→10:39)
[2024-07-27] MEDS: BusPIRone HCL 5 MG TABLET 15 MG PO (04:03)
[2024-07-27] MEDS: GABAPENTIN 100 MG CAPSULE PO (04:52)
--- NOTE | 2024-07-27 04:52 | PC.NURSE ---
Per Dr saravia ok to give [place] and Gabapentin early for unreleived pain
[2024-07-27 06:50] LABS: Basophils # (Auto) 0.1 Thou/mm3 (0.0-0.2); Basophils % (Auto) 0 % (0-2.5); Eosinophils # (Auto) 0.1 Thou/mm3 (0.0-0.5); Eosinophils % (Auto) 0 % (0-10); Hematocrit 37.4 % (36.0-46.0); Hemoglobin 12.2 g/dL (12.0-16.0); Immature Granulocytes % (Auto) 3 % (0-0); Immature Granulocytes Auto 0.78 Thou/mm3 (0.00-0.00); Lymphocytes # (Auto) 1.2 Thou/mm3 (1.0-4.8); Lymphocytes % (Auto) 5 % (10-50); Mean Corpuscular HGB Conc 32.6 g/dl (31.0-37.0); Mean Corpuscular Hemoglobin 28.4 pg (25.0-35.0); Mean Corpuscular Volume 87 fL (80-100); Monocytes # (Auto) 3.8 Thou/mm3 (0.0-0.8); Monocytes % (Auto) 16 % (0-12); Neutrophils # (Auto) 17.2 Thou/mm3 (1.8-7.7); Neutrophils % (Auto) 74 % (37-80); Nucleated Red Blood Cell % 0 /100 WBC (0); Platelet Count 314 Thou/mm3 (140-440); Red Blood Count 4.29 Miln/mm3 (4.00-5.20); White Blood Count 23.2 Thou/mm3 (3.6-11.0)
[2024-07-27 07:25] LABS: Alanine Aminotransferase 75 U/L (10-49); Albumin/Globulin Ratio 0.9 (1.2-2.2); Alkaline Phosphatase 192 U/L (46-116); Anion Gap 7 (7-16); Aspartate Amino Transferase 131 U/L (0-34); BUN/Creatinine Ratio 23 Ratio (12-20); Bilirubin,Total 1.6 mg/dL (0.3-1.2); Blood Urea Nitrogen 16 mg/dL (9-23); Calcium 8.4 mg/dL (8.3-10.6); Calcium (Corrected) 9.2 mg/dL (8.5-10.1); Carbon Dioxide 26.9 mMol/L (20.0-31.0); Chloride 99 mMol/L (98-107); Creatine Kinase 141 U/L (34-171); Creatinine (Component) 0.7 mg/dL (0.6-1.3); Estimated Creatinine Clearance 81.4 mL/min (>60); Globulin 3.3 gm/dL (2.3-3.5); Glucose 94 mg/dL (74-106); Magnesium 1.9 mg/dL (1.6-2.6); Osmolality,Calculated 267 (275-295); Phosphorous 2.5 mg/dL (2.4-5.1); Potassium 4.4 mMol/L (3.4-5.1); Sodium 133 mMol/L (136-145); Total Protein 6.3 gm/dL (5.7-8.2); eGFR > 60 See Note
[2024-07-27] MEDS: cefTRIAXone/D5w 1gm IV premix 1 GM/50 ML BAG IV (08:23)
[2024-07-27] MEDS: AMIODARONE HCL 200 MG TABLET PO (08:24)
[2024-07-27] MEDS: SPIRONOLACTONE 25 MG TABLET PO (08:24)
[2024-07-27] MEDS: PANTOPRAZOLE 40 MG TABLET PO (08:24)
[2024-07-27] MEDS: DULoxetine HCL 30 MG CAPSULE 60 MG PO ×2 (08:24→20:12)
[2024-07-27] MEDS: Morphine Sulf 15 MG TABCR PO ×2 (08:24→10:13)
[2024-07-27] MEDS: METHIMAZOLE 5 MG TABLET PO (08:25)
--- NOTE | 2024-07-27 09:30 | ESPR_ITS ---
Documentation for date of: 07/27/24 Subjective Subjective Interval history: No acute overnight events noted. Seen and examined at bedside patient continues to be in pain, suspect to be due to her fall she experienced prior to being admitted. Will again increase her morphine dosage to 30 mg BID. Will also try and get her out of bed today. States that it has been difficult to sleep due to constant interruptions and will try and change timing in her medications. Otherwise, on 4 L NC (on 2 L at home), afebrile. WBC increased from 15.8 to 23, T. bili increased from 0.9 to 1.6, AST/ALT increased from 117/63 to 131/75, ALP increased from 157 to 192. Will touch base with GI, however, facilities have thus far denied transfer for ERCP with [facility]. Exam Vital Signs Temp Pulse Resp BP Pulse Ox O2 Del Method O2 Flow Rate 97.0 F 61 18 156/62 H 91 L Nasal Cannula 4 07/27/24 08:00 07/27/24 08:24 07/27/24 08:00 07/27/24 08:24 07/27/24 08:00 07/27/24 08:00 07/27/24 08:00 Narrative Exam General: AOx3, tired, mild distress from pain, able to speak full sentences HEENT: NC/AT, mucous membranes moist, bilateral sclera anicteric Cardiovascular: regular rate and rhythm, S1/S2 present, no murmurs appreciated Pulmonary: mild upper airway wheezing, no rales/rhonchi Abdominal: obese soft, non-tender, non-distended, no rebound/guarding, normal bowel sounds present Musculoskeletal: normal ROM, no peripheral edema Skin: chronic venous stasis changes, warm and dry, intact, no rashes Neuro: CN II-XII intact, no focal deficits Objective Labs 07/27/24 05:46 07/27/24 05:46 Labs: Laboratory Results - last 24 hr 07/26/24 07/27/24 04:49 05:46 WBC 23.2 H D RBC 4.29 Hgb 12.2 Hct 37.4 MCV 87 MCH 28.4 MCHC 32.6 RDW Std Deviation 50.0 H Plt Count 314 D Neut % (Auto) 74 Lymph % (Auto) 5 L [place] % (Auto) 16 H Eos % (Auto) 0 Baso % (Auto) 0 Neut # (Auto) 17.2 H Lymph # (Auto) 1.2 [place] # (Auto) 3.8 H Eos # (Auto) 0.1 Baso # (Auto) 0.1 Immature Gran # (Auto) 0.78 H Absolute Nucleated RBC 0.00 Immature Gran % 3 H Nucleated RBC % 0 Sodium 133 L Potassium 4.4 Chloride 99 Carbon Dioxide 26.9 Anion Gap 7 BUN 16 Creatinine 0.7 Estim Creat Clear Calc 81.4 eGFR > 60 BUN/Creatinine Ratio 23 H Glucose 94 Calculated Osmolality 267 L Calcium 8.4 Corrected Calcium 9.2 Phosphorus 2.5 Magnesium 1.9 Total Bilirubin 1.6 H D AST 131 H ALT 75 H Alkaline Phosphatase 192 H D Total Creatine Kinase 232 H D 141 D Total Protein 6.3 Albumin 3.0 L Globulin 3.3 Albumin/Globulin Ratio 0.9 L Quality Measures Quality Measures none Advance care planning discussed with:: patient and child Assessment & Plan Assessment Current Active Medications: Generic Name Dose Route Start Last Admin Trade Name Freq PRN Reason Stop Dose Admin Acetaminophen 650 mg 07/23/24 15:30 07/25/24 10:26 Acetaminophen 325 Mg Tablet PO 08/22/24 15:29 650 mg Q6H PRN Administration PAIN OR FEVER > 100.4 Protocol Hydrocodone Bitart/Acetaminophen 1 tab 07/25/24 13:50 07/27/24 04:51 Hydrocodone/Apap 5/325 Tablet PO 07/29/24 00:47 1 tab Q4HR PRN Administration PAIN SCALE 4-10(Mod-Sev Albuterol/Ipratropium 3 ml 07/25/24 08:45 07/27/24 06:37 Albuterol/Ipratropium (Duoneb) Rt Lauren 3 Ml Nebu INH 08/24/24 08:44 3 ml Q4HRRT GHADA Administration Amiodarone HCl 200 mg 07/25/24 09:00 07/27/24 08:24 Amiodarone Hcl 200 Mg Tablet PO 08/24/24 08:59 200 mg QDAY GHADA Administration Buspirone HCl 15 mg 07/24/24 10:57 07/27/24 04:03 Buspirone Hcl 5 Mg Tablet PO 08/23/24 10:56 15 mg TID PRN Administration Anxiety Duloxetine HCl 60 mg 07/24/24 21:00 07/27/24 08:24 Duloxetine Hcl 30 Mg Capsule PO 08/23/24 20:59 60 mg BID GHADA Administration Gabapentin 100 mg 07/23/24 22:30 07/27/24 04:52 Gabapentin 100 Mg Capsule PO 08/22/24 22:29 100 mg TID GHADA Administration Ceftriaxone Sodium/Dextrose 1 gm in 50 mls @ 100 mls/hr 07/25/24 09:00 07/27/24 08:23 Rocephin/D5w 1gm Iv Premix IV 08/01/24 08:59 100 mls/hr QDAY GHADA Administration Methimazole 5 mg 07/23/24 09:00 07/27/24 08:25 Methimazole 5 Mg Tablet PO 08/22/24 08:59 5 mg DAILY GHADA Administration Morphine Sulfate 30 mg 07/27/24 21:00 Morphine Sulf 30 Mg Tabcr PO 08/01/24 20:59 QPM GHADA Protocol Morphine Sulfate 30 mg 07/28/24 09:00 Morphine Sulf 15 Mg Tabcr PO 08/02/24 08:59 QDAY GHADA Protocol Ondansetron HCl 4 mg 07/23/24 15:34 07/23/24 16:49 Ondansetron Inj 2 Mg/Ml Inj 2 Ml IV 08/22/24 15:33 4 mg Q6H PRN Administration NAUSEA OR VOMITING Protocol Pantoprazole Sodium 40 mg 07/24/24 09:00 07/27/24 08:24 Pantoprazole 40 Mg Tablet PO 08/23/24 08:59 40 mg QDAY GHADA Administration Rivaroxaban 20 mg 07/25/24 17:30 07/26/24 18:08 Rivaroxaban 10 Mg Tablet PO 08/24/24 17:29 20 mg WSUPPER GHADA Administration Spironolactone 25 mg 07/25/24 09:00 07/27/24 08:24 Spironolactone 25 Mg Tablet PO 08/24/24 08:59 25 mg QDAY GHADA Administration Plan Nneka Burciaga is a 74-year-old female with a past medical history of COPD on 2 L home oxygen, HFpEF (55-60% on 11/2023), a-fib on Xarelto, hypertension, and chronic pain who presented to the ED on 07/22 status-post multiple ground-level falls at home and found to have enlarged CBD on imaging, admitted for further work-up. #Enlarged CBD #History of cholecystectomy #? Choledocolithiasis #Transaminitis #Hyperbilirubinemia No fever, chills, nausea, vomiting, abdominal pain, change in bowel habits. On admission: WBC 25, ESR 86, CRP 12, procal 5.2, AST 134, ALT 54, alk phos 137, T. bili 2.3. Gallbladder ultrasound: Enlarged CBD 1.2 cm. MRCP: Extrahepatic biliary tract dilatation with abrupt termination at distal CBD. HIDA scan showed a large common hepatic and CBD, although contrast in the small bowel. Spoke to child support case officer, Dr. 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 Zosyn (07/23-07/25) ? GI consulted, appreciate recommendations ? Transfer process initiated in order to obtain ERCP with [facility]; otherwise, will have to obtain ERCP here on Monday ? Zosyn 3.375 g IV q6h (07/27-) ? Ursodiol 300 mg p.o. q6h #Urinary tract infection UA showed turbid urine, 2+ blood, 23 RBC, WBC 966, 3+ bacteria, hyaline casts present. Zosyn (07/23-07/25), ceftriaxone (07/25-07/27) ? Urine culture: Klebsiella pneumonia ? Zosyn 3.375 g IV q6h (07/27-) #Acute kidney injury, prerenal vs intrarenal, improving May be due to dehydration vs rhabdomyolysis ? Follow-up AM labs ? Avoid nephrotoxic agents, renally dose medications ? Encourage increased p.o. intake #Rhabdomyolysis, improving Found down at home after fall, may have been for a couple of hours per history. Initial CK 3500, will continue to trend. ? Received 3 L IVF per sepsis protocol and an additional 1 L afterwards ? Follow-up CK ? Encourage increased p.o. intake #HFpEF (EF 55-60% on 11/2023) Follows-up with Dr. Browning outpatient. Not in exacerbation and not overloaded at this time. BNP 395. ? Cardiology consulted, appreciate recommendations ? Follow-up echo ? Carvedilol 3.125 mg p.o. BIDWM -> HELD ? Spironolactone 25 mg p.o. daily ? Holding lasix ? Strict I's and O's, daily weights, low sodium diet, fliud restriction (2 L/day) #Atrial fibrillation, on Xarelto and amiodarone On 07/24, Heart rate noted to be in the 40s and 50s with associated drowsiness, EKG showed sinus bradycardia with first-degree AV block Per cardio recommendations, will decrease amiodarone to 200 mg daily and discontinue Coreg ? Amiodarone 200 mg p.o. daily ? Restarted Xarelto #COPD on 2 L home O2 Does not have any inhalers at home per son. ? Duonebs scheduled #History of hypertension ? Carvedilol as above #Chronic pain ? Gabapentin 100 mg p.o. 3 times daily ? Duloxetine 60 mg p.o. twice daily ? Morphine sulfate 15 mg p.o. in AM and 30 mg in PM ? [place] 5 q6h prn Hospital management: Disposition: pending possible transfer for ERCP with [facility] Diet: cardiac, low sodium Lines: PIV DVT prophylaxis: SCDs GI prophylaxis: pantoprazole 40 mg po daily CODE STATUS: DNR/DNI ----- Plan discussed with attending physician Dr. Buddy Smith MD PGY-1 Internal Medicine Attending Provider Attestation/Addendum I reviewed labs, imaging, EKG, home medications and prior available records. Face to face evaluation was performed by me. I have personally examined the patient and discussed assessment and plan with the IM team. I reviewed the resident note and agree with the plan with exceptions as below. Ground-level fall Acute UTI, gram-negative rods COPD without exacerbation HFpEF EF: 55 to 60%, chronic Atrial fibrillation with controlled ventricular rhythm SAPPHIRE, rhabdomyolysis in the setting of fall CBD duct dilation Transaminitis Bradycardia, possibly due to amiodarone WBC is uptrending Trend LFTs: Uptrending. Discussed with GI: Broaden antibiotics to IV Zosyn. Started ursodiol Creatinine improved. Monitor kidney function. Avoid nephrotoxins. Renally dosed medications. Remains in pain. MRCP showed CBD duct dilation. Follow-up GI ID recommendations: May need transfer for [facility] ERCP. Initiated transfer process and discussed with transfer nurse: Called multiple centers without success. Discussed with Dr. Carrillo again: Cannot do the ERCP prior to next Monday. She has significant severe pain requiring IV opiates and frequent dosing Discussed with case management as patient wants to sleep with her recliner which helps with her pain management. Protect sleep hours Thyroid function is abnormal. Decreased the dose of amiodarone to 200 mg daily per cardiology recommendations Ordered PT: Recommended SNF
[2024-07-27] MEDS: ursodioL 300 MG CAPSULE PO ×3 (11:10→20:12)
[2024-07-27] MEDS: PIPER/TAZO 3.375 GM PREMIX 3.375 GM/50 ML BAG IV ×2 (11:10→17:37)
--- NOTE | 2024-07-27 11:27 | ESPR_ITS ---
<Statement entered by Jason Browning MD - 07/30/24 08:24> I personally evaluated examined this patient history of paroxysmal A-fib multiple problems hypertension doing fairly well now cardiac lutz no bradycardia episodes patient is awaiting ERCP evaluate the patient with Dr. Kelly PGY 2 agree with the treatment plan recommendations as documented Documentation for date of: 07/27/24 Subjective Subjective Interval history: Patient was seen and examined at the bedside. No acute overnight events. Patient reports severe back pain which is chronic problem due to sciatica and the bed is very uncomfortable in the hospital. She was undergoing breathing treatment while evaluated. Her BLE edema looks slightly worse than yesterday. Her Lasix remains on hold along with Coreg. Her vitals show blood pressure 156/62, pulse 61, respirations 28. Recommended to resume home dose Lasix due to worsening BLE edema. Patient is pending transfer for ERCP. Exam Vital Signs Temp Pulse Resp BP Pulse Ox O2 Del Method O2 Flow Rate 97.0 F 61 28 H 156/62 H 94 L Nasal Cannula 5 07/27/24 08:00 07/27/24 10:39 07/27/24 10:39 07/27/24 08:24 07/27/24 10:39 07/27/24 08:00 07/27/24 10:39 Narrative Exam Gen: Well-developed and well-nourished elderly female. HEENT: NCAT, PERRLA, EOMI, MMM, anicteric conjunctivae. CVS: normal S1 and S2. RRR. No M/R/G. Resp: Mild wheezing B/L. No rhonchi, rales, crackles. Abd: soft, non-tender, non-distended. BS+ in all 4 quadrants. MSK: Good ROM in BUE & BLE. Venous stasis dermatitis BLE. 2+ pitting edema BLE. Neuro: CN II-XII grossly intact. Strength 5/5 in BUE & BLE. Alert and oriented x3. Objective Labs 07/27/24 05:46 07/27/24 05:46 Labs: Laboratory Results - last 24 hr 07/27/24 05:46 WBC 23.2 H D RBC 4.29 Hgb 12.2 Hct 37.4 MCV 87 MCH 28.4 MCHC 32.6 RDW Std Deviation 50.0 H Plt Count 314 D Neut % (Auto) 74 Lymph % (Auto) 5 L [place] % (Auto) 16 H Eos % (Auto) 0 Baso % (Auto) 0 Neut # (Auto) 17.2 H Lymph # (Auto) 1.2 [place] # (Auto) 3.8 H Eos # (Auto) 0.1 Baso # (Auto) 0.1 Immature Gran # (Auto) 0.78 H Absolute Nucleated RBC 0.00 Immature Gran % 3 H Nucleated RBC % 0 Sodium 133 L Potassium 4.4 Chloride 99 Carbon Dioxide 26.9 Anion Gap 7 BUN 16 Creatinine 0.7 Estim Creat Clear Calc 81.4 eGFR > 60 BUN/Creatinine Ratio 23 H Glucose 94 Calculated Osmolality 267 L Calcium 8.4 Corrected Calcium 9.2 Phosphorus 2.5 Magnesium 1.9 Total Bilirubin 1.6 H D AST 131 H ALT 75 H Alkaline Phosphatase 192 H D Total Creatine Kinase 141 D Total Protein 6.3 Albumin 3.0 L Globulin 3.3 Albumin/Globulin Ratio 0.9 L Quality Measures Quality Measures none Advance care planning discussed with:: patient Assessment & Plan Assessment Current Active Medications: Generic Name Dose Route Start Last Admin Trade Name Freq PRN Reason Stop Dose Admin Acetaminophen 650 mg 07/23/24 15:30 07/25/24 10:26 Acetaminophen 325 Mg Tablet PO 08/22/24 15:29 650 mg Q6H PRN Administration PAIN OR FEVER > 100.4 Protocol Hydrocodone Bitart/Acetaminophen 1 tab 07/25/24 13:50 07/27/24 11:17 Hydrocodone/Apap 5/325 Tablet PO 07/29/24 00:47 1 tab Q4HR PRN Administration PAIN SCALE 4-10(Mod-Sev Albuterol/Ipratropium 3 ml 07/25/24 08:45 07/27/24 10:39 Albuterol/Ipratropium (Duoneb) Rt Lauren 3 Ml Nebu INH 08/24/24 08:44 3 ml Q4HRRT GHADA Administration Amiodarone HCl 200 mg 07/25/24 09:00 07/27/24 08:24 Amiodarone Hcl 200 Mg Tablet PO 08/24/24 08:59 200 mg QDAY GHAAD Administration Buspirone HCl 15 mg 07/24/24 10:57 07/27/24 04:03 Buspirone Hcl 5 Mg Tablet PO 08/23/24 10:56 15 mg TID PRN Administration Anxiety Duloxetine HCl 60 mg 07/24/24 21:00 07/27/24 08:24 Duloxetine Hcl 30 Mg Capsule PO 08/23/24 20:59 60 mg BID GHADA Administration Gabapentin 100 mg 07/23/24 22:30 07/27/24 04:52 Gabapentin 100 Mg Capsule PO 08/22/24 22:29 100 mg TID GHADA Administration Piperacillin/Tazobactam/Dextrose 3.375 gm in 50 mls @ 100 mls/hr 07/27/24 12:00 07/27/24 11:10 Zosyn IV 08/03/24 11:59 100 mls/hr Q6HR GHADA Administration Methimazole 5 mg 07/23/24 09:00 07/27/24 08:25 Methimazole 5 Mg Tablet PO 08/22/24 08:59 5 mg DAILY GHADA Administration Morphine Sulfate 30 mg 07/27/24 21:00 Morphine Sulf 30 Mg Tabcr PO 08/01/24 20:59 QPM GHADA Protocol Morphine Sulfate 30 mg 07/28/24 09:00 Morphine Sulf 15 Mg Tabcr PO 08/02/24 08:59 QDAY GHADA Protocol Ondansetron HCl 4 mg 07/23/24 15:34 07/23/24 16:49 Ondansetron Inj 2 Mg/Ml Inj 2 Ml IV 08/22/24 15:33 4 mg Q6H PRN Administration NAUSEA OR VOMITING Protocol Pantoprazole Sodium 40 mg 07/24/24 09:00 07/27/24 08:24 Pantoprazole 40 Mg Tablet PO 08/23/24 08:59 40 mg QDAY GHADA Administration Rivaroxaban 20 mg 07/25/24 17:30 07/26/24 18:08 Rivaroxaban 10 Mg Tablet PO 08/24/24 17:29 20 mg WSUPPER GHADA Administration Spironolactone 25 mg 07/25/24 09:00 07/27/24 08:24 Spironolactone 25 Mg Tablet PO 08/24/24 08:59 25 mg QDAY GHADA Administration Ursodiol 300 mg 07/27/24 12:00 07/27/24 11:10 Ursodiol 300 Mg Capsule PO 08/26/24 11:59 300 mg QID GHADA Administration Plan 74-year-old female with past medical history of COPD on 2L home o2 , CHF last echo on 2020 showed ejection fraction of 50 to 55%, A-fib on anticoagulation xarelto chronic back pain, hypertension came to the ED with chief complaint of fall. In the ED ultrasound showed CBD 1.27 cm MRCP was done which showed abnormal Abnormal extra hepatic biliary tract dilatation with abrupt termination of the distal common bile duct, differential would include malignant neoplasm at the ampulla. Cervical CT was negative for any fracture, head CT was negative for any fracture, his CT was negative for any fracture, lumbar thoracic spine CT?negative for any fracture. Initial vitals BP?115/57, P?60, RR?18, temperature?98. labs-WBC?24.9, hemoglobin?11.6, HCT?35.8,ESR- 86, na-133,cr-1.6 , total bilirubin?2.3, AST?134, ALT?54, alk phos?137, total creatinine 3532, troponin negative, CRP 12.4, BNP 395. Dr. Carrillo is planning to do ERCP. Cardiology consulted for management of fluids in the setting of rhabdo. #HFpEF 55-60%. -BNP -395 -Echo- (11/20/2023) Normal LV size and function. .Diastolic function present but cannot grade due to AFib. Estimated EF 55-60%, Normal RV size and function. Mild TR. Trace MR. -home meds coreg ,spironalactone, Lasix. -patient received 2L of fluid in ED for Sepsis and Rhabdo , currently on 125 ml/hr of NS , continue the maintainance fluid as she is not heart failure with reduced EF . and currently not on heart failure . 07/24/24: bed side her HR was in between 47-55 , she was drowsy . EKG showed sinus abel with first degree AV block , will decrease Amio to 200 Q day and discontinue coreg. He CK has decreased . pending Dr Carrillo rec for ERCP. 07/25/2024: her heart rate is currently in 80s , continue to hold coreg . she is complaining of generalized pain in her body , primary team has decreased the dose of her morphine. 07/26/24: she is pending transfer for ERCP with [facility] as per Dr. Carrillo if she is not able to transfer by Monday then he will do ERCP in the hospital. Earlier her heart rate was in 50s they held the amiodarone and her heart rate went up to 100 so amiodarone Q day was given. 07/27/2024: Patient developed new onset bilateral lower extremity swelling and would be benefit from resuming her home Lasix in addition to her spironolactone. Plan: - continue holding coreg. - resume home Lasix. #A-fib. - chadsvac score- 5 -she is amiodarone 200 bid -coreg- 6.25 bid - on xarelto -07/24/24: will DC coreg for now in setting of bradycardia and change amio to Q day . -07/25/24: continue amio 200 q day. -07/26/24: continue amio 200 q day. Plan: - Continue amiodarone 200 mg QD and Xarelto. Management of other problems as per primary team. Case discussed with my attending Dr Browning. Robin Lopez MD, PGY 2. Disclaimer: This note was dictated by speech recognition. Minor errors in intern architect may be present due to voice recognition software.
[2024-07-27] MEDS: Furosemide 40 MG TABLET PO ×2 (14:16→20:13)
--- NOTE | 2024-07-27 15:59 | PC.SS ---
Per Dr. Goodwin, patient will have ERCP on 07/30/[address] Carrillo. When medically stable, then discharge to [facility].
[2024-07-27] MEDS: RIVAROXABAN 10 MG TABLET 20 MG PO (16:49)
[2024-07-27] MEDS: MORPHINE SULF 30 MG TABCR PO (20:12)
[2024-07-28] VITALS (15 sets, daily range): BP systolic 97–142; BP diastolic 63–84; PULSE 110–127; RESP 16–29; TEMP 36.2–36.7; O2SAT 88–93; BMI 40.2
[2024-07-28] MEDS: HYDROcodone/APAP 5/325 TABLET 1 TAB PO ×4 (00:20→23:06)
[2024-07-28] MEDS: PIPER/TAZO 3.375 GM PREMIX 3.375 GM/50 ML BAG IV ×4 (00:21→17:13)
--- NOTE | 2024-07-28 02:54 | PC.NURSE ---
pt restless, moaning, complaining of back pain, wanted to sit on chair. Assisted pt and sat at edge of bed with min to mod assist- hr went up to 132 and 81% O2 sat on 4L/min/nc on exertion. Increased O2 inh to 6L/min. Sat at edge of bed for about 10 mins with cg=669 and 90% O2 sat on 6L/min. Assisted back in bed and decreased O2 inh to 4L/min with 91% O2 sat.
--- NOTE | 2024-07-28 02:58 | PC.NURSE ---
skin repair cream applied to whole back.
[2024-07-28] MEDS: BusPIRone HCL 5 MG TABLET 15 MG PO ×2 (05:14→23:06)
[2024-07-28] MEDS: ursodioL 300 MG CAPSULE PO ×4 (05:14→21:54)
[2024-07-28 05:40] LABS: Basophils # (Auto) 0.1 Thou/mm3 (0.0-0.2); Basophils % (Auto) 0 % (0-2.5); Eosinophils % (Auto) 0 % (0-10); Hematocrit 38.8 % (36.0-46.0); Hemoglobin 12.6 g/dL (12.0-16.0); Immature Granulocytes % (Auto) 4 % (0-0); Immature Granulocytes Auto 1.26 Thou/mm3 (0.00-0.00); Lymphocytes # (Auto) 1.6 Thou/mm3 (1.0-4.8); Lymphocytes % (Auto) 5 % (10-50); Mean Corpuscular HGB Conc 32.5 g/dl (31.0-37.0); Mean Corpuscular Hemoglobin 27.9 pg (25.0-35.0); Mean Corpuscular Volume 86 fL (80-100); Monocytes # (Auto) 3.6 Thou/mm3 (0.0-0.8); Monocytes % (Auto) 12 % (0-12); Neutrophils # (Auto) 23.8 Thou/mm3 (1.8-7.7); Neutrophils % (Auto) 78 % (37-80); Nucleated Red Blood Cell % 0 /100 WBC (0); Platelet Count 386 Thou/mm3 (140-440); RDW Standard Deviation 49.1 fL (36.4-46.3); Red Blood Count 4.51 Miln/mm3 (4.00-5.20); White Blood Count 30.4 Thou/mm3 (3.6-11.0)
[2024-07-28 06:28] LABS: Alanine Aminotransferase 80 U/L (10-49); Albumin/Globulin Ratio 0.9 (1.2-2.2); Alkaline Phosphatase 204 U/L (46-116); Anion Gap 11 (7-16); Aspartate Amino Transferase 130 U/L (0-34); BUN/Creatinine Ratio 20 Ratio (12-20); Blood Urea Nitrogen 16 mg/dL (9-23); Calcium 8.5 mg/dL (8.3-10.6); Calcium (Corrected) 9.3 mg/dL (8.5-10.1); Carbon Dioxide 28.5 mMol/L (20.0-31.0); Chloride 94 mMol/L (98-107); Creatinine (Component) 0.8 mg/dL (0.6-1.3); Estimated Creatinine Clearance 71.4 mL/min (>60); Globulin 3.4 gm/dL (2.3-3.5); Glucose 62 mg/dL (74-106); Magnesium 1.8 mg/dL (1.6-2.6); Osmolality,Calculated 265 (275-295); Phosphorous 2.8 mg/dL (2.4-5.1); Potassium 3.5 mMol/L (3.4-5.1); Sodium 133 mMol/L (136-145); Total Protein 6.4 gm/dL (5.7-8.2); eGFR > 60 See Note
[2024-07-28 06:53] LABS: Path Review Blood Smear Sent to Pathologist
[2024-07-28] MEDS: DULoxetine HCL 30 MG CAPSULE 60 MG PO ×2 (06:58→21:55)
[2024-07-28] MEDS: SPIRONOLACTONE 25 MG TABLET PO (06:58)
[2024-07-28] MEDS: PANTOPRAZOLE 40 MG TABLET PO (06:59)
[2024-07-28] MEDS: Furosemide 40 MG TABLET PO (06:59)
[2024-07-28] MEDS: METHIMAZOLE 5 MG TABLET PO (07:08)
[2024-07-28] MEDS: AMIODARONE HCL 200 MG TABLET PO ×2 (07:09→09:51)
--- NOTE | 2024-07-28 07:17 | PC.SS ---
SS follow up note; ERCP on Monday with Dr. Carrillo. Patient will discharge to [facility] when medically cleared.
[2024-07-28] MEDS: Morphine Sulf 15 MG TABCR 30 MG PO (07:23)
[2024-07-28] MEDS: GABAPENTIN 100 MG CAPSULE PO ×3 (07:24→21:54)
--- NOTE | 2024-07-28 07:24 | ESPR_ITS ---
Documentation for date of: 07/28/24 Subjective Subjective Interval history: No acute overnight events. Seen and examined at bedside and continues to be in significant pain. States again that she has not been able to sleep and [facility] Will instruct staff to reduce interruptions if they can and already changed medication timings to decrease blood draw and administration frequency. Otherwise, HR elevated in 120s at bedside and still needs to receive her morning amiodarone. No fevers overnight, WBC increased from 23 to 30, t bili increased from 1.6 to 3, ALP stable at 204, AST stable at 130, ALT stable at 80. Will touch base with GI for further recommendations. At this time, planned for ERCP tomorrow. Exam Vital Signs Temp Pulse Resp BP Pulse Ox O2 Del Method O2 Flow Rate 97.2 F 114 H 20 124/74 93 L Nasal Cannula 4 07/28/24 03:59 07/28/24 07:09 07/28/24 06:50 07/28/24 07:09 07/28/24 06:50 07/28/24 03:59 07/28/24 06:50 Narrative Exam General: AOx3, tired, mild distress from pain, able to speak full sentences HEENT: NC/AT, mucous membranes moist, bilateral sclera anicteric Cardiovascular: regular rate and rhythm, S1/S2 present, no murmurs appreciated Pulmonary: mild upper airway wheezing, no rales/rhonchi Abdominal: obese soft, non-tender, non-distended, no rebound/guarding, normal bowel sounds present Musculoskeletal: normal ROM, no peripheral edema Skin: chronic venous stasis changes, warm and dry, intact, no rashes Neuro: CN II-XII intact, no focal deficits Objective Labs 07/28/24 04:28 07/28/24 14:32 Labs: Laboratory Results - last 24 hr 07/27/24 07/28/24 05:46 04:28 WBC 30.4 H D RBC 4.51 Hgb 12.6 Hct 38.8 MCV 86 MCH 27.9 MCHC 32.5 RDW Std Deviation 49.1 H Plt Count 386 D Neut % (Auto) 78 Lymph % (Auto) 5 L [place] % (Auto) 12 Eos % (Auto) 0 Baso % (Auto) 0 Neut # (Auto) 23.8 H Lymph # (Auto) 1.6 [place] # (Auto) 3.6 H Eos # (Auto) 0.0 Baso # (Auto) 0.1 Immature Gran # (Auto) 1.26 H Absolute Nucleated RBC 0.00 Immature Gran % 4 H Nucleated RBC % 0 Smear Path Review Sent to Pathologist Sodium 133 L 133 L Potassium 4.4 3.5 D Chloride 99 94 L Carbon Dioxide 26.9 28.5 Anion Gap 7 11 BUN 16 16 Creatinine 0.7 0.8 Estim Creat Clear Calc 81.4 71.4 eGFR > 60 > 60 BUN/Creatinine Ratio 23 H 20 Glucose 94 62 L Calculated Osmolality 267 L 265 L Calcium 8.4 8.5 Corrected Calcium 9.2 9.3 Phosphorus 2.5 2.8 Magnesium 1.9 1.8 Total Bilirubin 1.6 H D 3.0 H D AST 131 H 130 H ALT 75 H 80 H Alkaline Phosphatase 192 H D 204 H Total Creatine Kinase 141 D Total Protein 6.3 6.4 Albumin 3.0 L 3.0 L Globulin 3.3 3.4 Albumin/Globulin Ratio 0.9 L 0.9 L Quality Measures Quality Measures none Advance care planning discussed with:: patient Assessment & Plan Assessment Current Active Medications: Generic Name Dose Route Start Last Admin Trade Name Freq PRN Reason Stop Dose Admin Acetaminophen 650 mg 07/23/24 15:30 07/25/24 10:26 Acetaminophen 325 Mg Tablet PO 08/22/24 15:29 650 mg Q6H PRN Administration PAIN OR FEVER > 100.4 Protocol Hydrocodone Bitart/Acetaminophen 1 tab 07/25/24 13:50 07/28/24 05:48 Hydrocodone/Apap 5/325 Tablet PO 07/29/24 00:47 1 tab Q4HR PRN Administration PAIN SCALE 4-10(Mod-Sev Albuterol/Ipratropium 3 ml 07/27/24 13:32 Albuterol/Ipratropium (Duoneb) Rt Lauren 3 Ml Nebu INH 08/24/24 08:44 Q4HRRT PRN wheezing, shortness of breath Amiodarone HCl 200 mg 07/25/24 09:00 07/28/24 07:09 Amiodarone Hcl 200 Mg Tablet PO 08/24/24 08:59 200 mg QDAY GHADA Administration Buspirone HCl 15 mg 07/24/24 10:57 07/28/24 05:14 Buspirone Hcl 5 Mg Tablet PO 08/23/24 10:56 15 mg TID PRN Administration Anxiety Duloxetine HCl 60 mg 07/24/24 21:00 07/28/24 06:58 Duloxetine Hcl 30 Mg Capsule PO 08/23/24 20:59 60 mg BID GHADA Administration Furosemide 40 mg 07/27/24 13:45 07/28/24 06:59 Furosemide 40 Mg Tablet PO 08/26/24 13:44 40 mg BID GHADA Administration Gabapentin 100 mg 07/28/24 09:00 Gabapentin 100 Mg Capsule PO 08/27/24 08:59 TID GHADA Piperacillin/Tazobactam/Dextrose 3.375 gm in 50 mls @ 100 mls/hr 07/27/24 12:00 07/28/24 05:13 Zosyn IV 08/03/24 11:59 100 mls/hr Q6HR GHADA Administration Methimazole 5 mg 07/23/24 09:00 07/28/24 07:08 Methimazole 5 Mg Tablet PO 08/22/24 08:59 5 mg DAILY GHADA Administration Morphine Sulfate 30 mg 07/27/24 21:00 07/27/24 20:12 Morphine Sulf 30 Mg Tabcr PO 08/01/24 20:59 30 mg QPM GHADA Administration Protocol Morphine Sulfate 30 mg 07/28/24 09:00 Morphine Sulf 15 Mg Tabcr PO 08/02/24 08:59 QDAY GHADA Protocol Ondansetron HCl 4 mg 07/23/24 15:34 07/23/24 16:49 Ondansetron Inj 2 Mg/Ml Inj 2 Ml IV 08/22/24 15:33 4 mg Q6H PRN Administration NAUSEA OR VOMITING Protocol Pantoprazole Sodium 40 mg 07/24/24 09:00 07/28/24 06:59 Pantoprazole 40 Mg Tablet PO 08/23/24 08:59 40 mg QDAY GHADA Administration Rivaroxaban 20 mg 07/25/24 17:30 07/27/24 16:49 Rivaroxaban 10 Mg Tablet PO 08/24/24 17:29 20 mg WSUPPER GHADA Administration Spironolactone 25 mg 07/25/24 09:00 07/28/24 06:58 Spironolactone 25 Mg Tablet PO 08/24/24 08:59 25 mg QDAY GHADA Administration Ursodiol 300 mg 07/27/24 12:00 07/28/24 05:14 Ursodiol 300 Mg Capsule PO 08/26/24 11:59 300 mg QID GHADA Administration Plan Nneka Burciaga is a 74-year-old female with a past medical history of COPD on 2 L home oxygen, HFpEF (55-60% on 11/2023), a-fib on Xarelto, hypertension, and chronic pain who presented to the ED on 07/22 status-post multiple ground-level falls at home and found to have enlarged CBD on imaging, admitted for further work-up. #Enlarged CBD #History of cholecystectomy #? Choledocolithiasis #Transaminitis #Hyperbilirubinemia No fever, chills, nausea, vomiting, abdominal pain, change in bowel habits. On admission: WBC 25, ESR 86, CRP 12, procal 5.2, AST 134, ALT 54, alk phos 137, T. bili 2.3. Gallbladder ultrasound: Enlarged CBD 1.2 cm. MRCP: Extrahepatic biliary tract dilatation with abrupt termination at distal CBD. HIDA scan showed a large common hepatic and CBD, although contrast in the small bowel. Spoke to beer brewer, Dr. 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 Zosyn (07/23-07/25) ? GI consulted, appreciate recommendations ? Transfer process initiated in order to obtain ERCP with [facility]; otherwise, will have to obtain ERCP here on Monday ? Zosyn 3.375 g IV q6h (07/27-) ? Ursodiol 300 mg p.o. q6h ? Follow-up CTA abdomen/pelvis #Urinary tract infection UA showed turbid urine, 2+ blood, 23 RBC, WBC 966, 3+ bacteria, hyaline casts present. Zosyn (07/23-07/25), ceftriaxone (07/25-07/27) ? Urine culture: Klebsiella pneumonia ? Zosyn 3.375 g IV q6h (07/27-) #Acute kidney injury, prerenal vs intrarenal, resolved May be due to dehydration vs rhabdomyolysis ? Follow-up AM labs ? Avoid nephrotoxic agents, renally dose medications ? Encourage increased p.o. intake #Rhabdomyolysis, improving Found down at home after fall, may have been for a couple of hours per history. Initial CK 3500, will continue to trend. ? Received 3 L IVF per sepsis protocol and an additional 1 L afterwards ? Encourage increased p.o. intake #HFpEF (EF 55-60% on 11/2023) Follows-up with Dr. Browning outpatient. Not in exacerbation and not overloaded at this time. BNP 395. ? Cardiology consulted, appreciate recommendations ? Follow-up echo ? Carvedilol 3.125 mg p.o. BIDWM -> HELD ? Spironolactone 25 mg p.o. daily ? Holding lasix ? Strict I's and O's, daily weights, low sodium diet, fliud restriction (2 L/day) #Atrial fibrillation, on Xarelto and amiodarone On 07/24, Heart rate noted to be in the 40s and 50s with associated drowsiness, EKG showed sinus bradycardia with first-degree AV block Per cardio recommendations, will decrease amiodarone to 200 mg daily and discontinue Coreg ? Amiodarone 200 mg p.o. daily ? Restarted Xarelto #COPD on 2 L home O2 Does not have any inhalers at home per son. ? Duonebs scheduled #History of hypertension ? Carvedilol as above #Chronic pain ? Gabapentin 100 mg p.o. 3 times daily ? Duloxetine 60 mg p.o. twice daily ? Morphine sulfate 15 mg p.o. in AM and 30 mg in PM ? [place] 5 q6h prn Hospital management: Disposition: pending possible transfer for ERCP with [facility] Diet: cardiac, low sodium Lines: PIV DVT prophylaxis: SCDs GI prophylaxis: pantoprazole 40 mg po daily CODE STATUS: DNR/DNI ----- Plan discussed with attending physician Dr. Buddy Smith MD PGY-1 Internal Medicine Attending Provider Attestation/Addendum I reviewed labs, imaging, EKG, home medications and prior available records. Face to face evaluation was performed by me. I have personally examined the patient and discussed assessment and plan with the IM team. I reviewed the resident note and agree with the plan with exceptions as below. Ground-level fall Acute UTI, gram-negative rods COPD without exacerbation HFpEF EF: 55 to 60%, chronic Atrial fibrillation with controlled ventricular rhythm SAPPHIRE, rhabdomyolysis in the setting of fall CBD duct dilation Transaminitis Bradycardia, possibly due to amiodarone Noted frequent PVCs. Ordered follow-up magnesium and potassium levels WBC is uptrending: Discussed with GI: Added IV vancomycin. Ordered CT scan of the abdomen/pelvis. Trend LFTs: Uptrending. Continue IV Zosyn/vancomycin. Started ursodiol Creatinine improved. Monitor kidney function. Avoid nephrotoxins. Renally dosed medications. Remains in pain. MRCP showed CBD duct dilation. Follow-up GI ID recommendations: May need transfer for [facility] ERCP. Initiated transfer process and discussed with transfer nurse: Called multiple centers without success. Discussed with Dr. Carrillo again: Cannot do the ERCP prior to next Monday. She has significant severe pain requiring IV opiates and frequent dosing Discussed with case management as patient wants to sleep with her recliner which helps with her pain management. Protect sleep hours Thyroid function is abnormal. Decreased the dose of amiodarone to 200 mg daily per cardiology recommendations Ordered PT: Recommended SNF once she is stable
--- NOTE | 2024-07-28 08:01 | XR_ITS ---
Examination: CT abdomen with intravenous contrast CT pelvis with intravenous contrast 2-D coronal reconstructions 2-D sagittal reconstructions Date and time of exam:July 28, 2024 0826 hours INDICATIONS: Abdominal pain and leukocytosis today with elevated total bilirubin on laboratory examination. CTDI: vol (mGy) 17 DLP: (mGycm) 924 Technique: Multiple axial sections of the abdomen and pelvis have been obtained. 64 slice high-resolution scanner used. 3 mm axial sections have been obtained, post intravenous injection 60 cc [id number] 2-D sagittal, coronal reconstructions obtained. Low dose protocols were performed. One or more of the following dose reduction techniques were used; automated exposure control, adjustment of the mA and/or KV according to patient size, use of iterative reconstruction technique. Findings: Bibasilar pneumonia with small bilateral pleural effusions Intrahepatic biliary tract dilatation Absent gallbladder Common hepatic duct 17 mm No definite common bile duct stones No pancreatic mass Moderate renal parenchymal scar formation Minimal bilateral hydronephrosis Normal appendix 15 mm fat-containing umbilical hernia Distended urinary bladder Abundant stool in the rectum Moderate osteopenia IMPRESSION: Bibasilar pneumonia with small bilateral pleural effusions Extrahepatic biliary tract dilatation, please see the MRCP report 10/23/2024, recommend ERCP/biopsies follow-up at the [facility]
[2024-07-28] MEDS: Morphine Sulf 15 MG TABCR PO (08:12)
[2024-07-28] MEDS: AMIODARONE HCL 200 MG TABLET (09:51)
[2024-07-28] MEDS: VANCOMYCIN/D5W 1,250 MG IVPB 250 ML 120 MG IV ×2 (10:35→21:46)
[2024-07-28] MEDS: Magnesium Sulfate 2 GM Ivpb 50 ML IV (15:38)
--- NOTE | 2024-07-28 16:40 | PC.NURSE ---
[facility] on 07[facility]/2024 from [id number].
[2024-07-28] MEDS: RIVAROXABAN 10 MG TABLET 20 MG PO (17:13)
[2024-07-28 17:19] LABS: Magnesium 1.8 mg/dL (1.6-2.6); Potassium 4.1 mMol/L (3.4-5.1)
[2024-07-29] VITALS (12 sets, daily range): BP systolic 97–129; BP diastolic 66–93; PULSE 87–122; RESP 18–26; TEMP 36.1–36.4; O2SAT 91–95; BMI 39.7
[2024-07-29] MEDS: PIPER/TAZO 3.375 GM PREMIX 3.375 GM/50 ML BAG IV ×4 (00:15→17:53)
--- NOTE | 2024-07-29 01:55 | ESPR_ITS ---
RE: NNEKA BURCIAGA : 1950 DATE OF SERVICE: 07/28/2024 SUBJECTIVE: Nneka Burciaga is a 74-year-old lady with a past medical history of multiple medical problems, paroxysmal atrial fibrillation, has had bradycardia. We stopped the medication . Continues to be maintaining sinus rhythm so far. She has multiple other issues, not having any chest pain or shortness of breath and she has remained to have sepsis leukocytosis, but no fever. White count is steadily going up. Her white count in fact has gone up to 30,000 today. Hemoglobin is stable. She is not complaining of any fever or other symptoms. OBJECTIVE: Vital Signs: Blood pressure 124/74, pulse rate 100, respirations 18, and temperature normal. Neck: Supple. Lungs: Decreased breath sounds at bases. Heart: Sounds S1, S2 regular. Abdomen: Thin and soft. Extremities: Mild edema. ASSESSMENT: 1. Atrial fibrillation, paroxysmal episodes. 2. Hypertension. 3. Bradycardia, resolved. 4. Rhabdomyolysis. 5. Acute kidney injury. 6. HFpEF. 7. Chronic obstructive lung disease. 8. Hypertension. RECOMMENDATIONS: Continue further medical management including continuing back on amiodarone for now. If the patient gets tachycardia, we will start back on beta-nathen as well for now. We will hold off and continue with Xarelto. DT: 23:25:22 TT: 01:48:00 Ref: [id number] - TID: [id number]
--- NOTE | 2024-07-29 06:00 | EKG_ITS ---
[facility] Test Date: 2024-07-29 Pat Name: HE DELACRUZ [facility] Chief Electrician: DORINA : 1950 Requested By: Dieudonne Berman Order Number: [id number] Reading MD: Dieudonne Berman Measurements Intervals [place] Rate: 114 P: MS: QRS: -79 QRSD: 141 T: 94 QT: 364 QTc: 503 Interpretive Statements ATRIAL FIBRILLATION WITH RAPID VENTRICULAR RESPONSE MARKED LEFT AXIS DEVIATION INTRAVENTRICULAR CONDUCTION DELAY Compared to ECG 07/24/2024 14:56:13 Left-axis deviation now present Intraventricular conduction delay now present Sinus bradycardia no longer present First degree AV block no longer present Myocardial infarct finding no longer present /store/S0/[id number].pdf
[2024-07-29 06:54] LABS: Basophils # (Auto) 0.1 Thou/mm3 (0.0-0.2); Basophils % (Auto) 0 % (0-2.5); Eosinophils # (Auto) 0.1 Thou/mm3 (0.0-0.5); Eosinophils % (Auto) 1 % (0-10); Hematocrit 36.7 % (36.0-46.0); Hemoglobin 12.1 g/dL (12.0-16.0); Immature Granulocytes % (Auto) 2 % (0-0); Immature Granulocytes Auto 0.46 Thou/mm3 (0.00-0.00); Lymphocytes # (Auto) 1.8 Thou/mm3 (1.0-4.8); Lymphocytes % (Auto) 7 % (10-50); Mean Corpuscular Hemoglobin 27.9 pg (25.0-35.0); Mean Corpuscular Volume 85 fL (80-100); Monocytes # (Auto) 2.5 Thou/mm3 (0.0-0.8); Monocytes % (Auto) 10 % (0-12); Neutrophils # (Auto) 20.6 Thou/mm3 (1.8-7.7); Neutrophils % (Auto) 81 % (37-80); Nucleated Red Blood Cell % 0 /100 WBC (0); Platelet Count 443 Thou/mm3 (140-440); RDW Standard Deviation 48.2 fL (36.4-46.3); Red Blood Count 4.33 Miln/mm3 (4.00-5.20); White Blood Count 25.5 Thou/mm3 (3.6-11.0)
[2024-07-29 07:07] LABS: Alanine Aminotransferase 83 U/L (10-49); Albumin, Serum 2.7 gm/dL (3.4-4.8); Albumin/Globulin Ratio 0.8 (1.2-2.2); Alkaline Phosphatase 220 U/L (46-116); Anion Gap 7 (7-16); Aspartate Amino Transferase 150 U/L (0-34); BUN/Creatinine Ratio 25 Ratio (12-20); Bilirubin,Total 3.5 mg/dL (0.3-1.2); Blood Urea Nitrogen 20 mg/dL (9-23); Calcium 8.2 mg/dL (8.3-10.6); Calcium (Corrected) 9.2 mg/dL (8.5-10.1); Carbon Dioxide 30.1 mMol/L (20.0-31.0); Chloride 94 mMol/L (98-107); Creatinine (Component) 0.8 mg/dL (0.6-1.3); Estimated Creatinine Clearance 71.4 mL/min (>60); Globulin 3.2 gm/dL (2.3-3.5); Glucose 89 mg/dL (74-106); Magnesium 2.2 mg/dL (1.6-2.6); Osmolality,Calculated 264 (275-295); Phosphorous 3.3 mg/dL (2.4-5.1); Potassium 3.7 mMol/L (3.4-5.1); Sodium 131 mMol/L (136-145); Total Protein 5.9 gm/dL (5.7-8.2); eGFR > 60 See Note
[2024-07-29] MEDS: ursodioL 300 MG CAPSULE PO ×4 (07:27→20:03)
[2024-07-29] MEDS: GABAPENTIN 100 MG CAPSULE PO ×3 (07:27→22:23)
[2024-07-29] MEDS: HYDROcodone/APAP 5/325 TABLET 1 TAB PO ×2 (07:27→13:24)
--- NOTE | 2024-07-29 08:15 | ESPR_ITS ---
Documentation for date of: 07/29/24 Subjective Subjective Interval history: Overnight, no acute events reported. Patient seen and examined at bedside. Patient seen on Oxymask, resting on 4L. Patient is scheduled for ERCP tomorrow, and will be made NPO after midnight for procedure. Patient's HR has been fluctuating above 115, and will consider ordering Amiodarone 200mg BID. Otherwise, labs are unremarakble, and WBC is downtrending. Exam Vital Signs Temp Pulse Resp BP Pulse Ox O2 Del Method O2 Flow Rate 97.0 F 120 H 20 129/90 H 93 L Nasal Cannula 5 07/29/24 03:59 07/29/24 04:10 07/29/24 03:59 07/29/24 03:59 07/29/24 03:59 07/29/24 03:59 07/29/24 03:59 Narrative Exam General: AOx3, tired, in no apparent distress, able to speak full sentences HEENT: NC/AT, mucous membranes moist, bilateral sclera anicteric Cardiovascular: regular rate and rhythm, S1/S2 present, no murmurs appreciated Pulmonary: mild upper airway wheezing, no rales/rhonchi Abdominal: obese soft, non-tender, non-distended, no rebound/guarding, normal bowel sounds present Musculoskeletal: normal ROM, no peripheral edema Skin: chronic venous stasis changes, warm and dry, intact, no rashes Neuro: CN II-XII intact, no focal deficits Objective Labs 07/29/24 05:28 07/29/24 05:28 Labs: Laboratory Results - last 24 hr 07/28/24 07/29/24 14:32 05:28 WBC 25.5 H RBC 4.33 Hgb 12.1 Hct 36.7 MCV 85 MCH 27.9 MCHC 33.0 RDW Std Deviation 48.2 H Plt Count 443 H D Neut % (Auto) 81 H Lymph % (Auto) 7 L [place] % (Auto) 10 Eos % (Auto) 1 Baso % (Auto) 0 Neut # (Auto) 20.6 H Lymph # (Auto) 1.8 [place] # (Auto) 2.5 H Eos # (Auto) 0.1 Baso # (Auto) 0.1 Immature Gran # (Auto) 0.46 H Absolute Nucleated RBC 0.00 Immature Gran % 2 H Nucleated RBC % 0 Sodium 131 L Potassium 4.1 D 3.7 Chloride 94 L Carbon Dioxide 30.1 Anion Gap 7 BUN 20 Creatinine 0.8 Estim Creat Clear Calc 71.4 eGFR > 60 BUN/Creatinine Ratio 25 H Glucose 89 Calculated Osmolality 264 L Calcium 8.2 L Corrected Calcium 9.2 Phosphorus 3.3 Magnesium 1.8 2.2 Total Bilirubin 3.5 H D AST 150 H ALT 83 H Alkaline Phosphatase 220 H Total Protein 5.9 Albumin 2.7 L Globulin 3.2 Albumin/Globulin Ratio 0.8 L Quality Measures Quality Measures none Advance care planning discussed with:: patient Assessment & Plan Assessment Current Active Medications: Generic Name Dose Route Start Last Admin Trade Name Freq PRN Reason Stop Dose Admin Acetaminophen 650 mg 07/23/24 15:30 07/25/24 10:26 Acetaminophen 325 Mg Tablet PO 08/22/24 15:29 650 mg Q6H PRN Administration PAIN OR FEVER > 100.4 Protocol Hydrocodone Bitart/Acetaminophen 1 tab 07/29/24 04:46 07/29/24 07:27 Hydrocodone/Apap 5/325 Tablet PO 08/03/24 04:45 1 tab Q6HR PRN Administration PAIN SCALE 7-10 (Severe Albuterol/Ipratropium 3 ml 07/27/24 13:32 Albuterol/Ipratropium (Duoneb) Rt Lauren 3 Ml Nebu INH 08/24/24 08:44 Q4HRRT PRN wheezing, shortness of breath Amiodarone HCl 200 mg 07/25/24 09:00 07/28/24 07:09 Amiodarone Hcl 200 Mg Tablet PO 08/24/24 08:59 200 mg QDAY GHADA Administration Buspirone HCl 15 mg 07/24/24 10:57 07/28/24 23:06 Buspirone Hcl 5 Mg Tablet PO 08/23/24 10:56 15 mg TID PRN Administration Anxiety Duloxetine HCl 60 mg 07/24/24 21:00 07/28/24 21:55 Duloxetine Hcl 30 Mg Capsule PO 08/23/24 20:59 60 mg BID GHADA Administration Furosemide 40 mg 07/27/24 13:45 07/28/24 15:44 Furosemide 40 Mg Tablet PO 08/26/24 13:44 Not Given BID GHADA Gabapentin 100 mg 07/28/24 09:00 07/29/24 07:27 Gabapentin 100 Mg Capsule PO 08/27/24 08:59 100 mg TID GHADA Administration Piperacillin/Tazobactam/Dextrose 3.375 gm in 50 mls @ 100 mls/hr 07/27/24 12:00 07/29/24 07:26 Zosyn IV 08/03/24 11:59 100 mls/hr Q6HR GHADA Administration Vancomycin HCl/Dextrose 250 mls @ 120 mls/hr 07/28/24 10:00 07/28/24 21:46 Vancomycin/D5w 1,250 Mg Ivpb IV 08/04/24 09:59 120 mls/hr BID@1000,2200 GHADA Administration Protocol Methimazole 5 mg 07/23/24 09:00 07/28/24 07:08 Methimazole 5 Mg Tablet PO 08/22/24 08:59 5 mg DAILY GHADA Administration Morphine Sulfate 30 mg 07/28/24 09:00 07/28/24 07:23 Morphine Sulf 15 Mg Tabcr PO 08/02/24 08:59 30 mg QDAY GHADA Administration Protocol Morphine Sulfate 45 mg 07/29/24 21:00 Morphine Sulf 15 Mg Tabcr PO 08/03/24 20:59 QPM GHADA Protocol Ondansetron HCl 4 mg 07/23/24 15:34 07/23/24 16:49 Ondansetron Inj 2 Mg/Ml Inj 2 Ml IV 08/22/24 15:33 4 mg Q6H PRN Administration NAUSEA OR VOMITING Protocol Pantoprazole Sodium 40 mg 07/24/24 09:00 07/28/24 06:59 Pantoprazole 40 Mg Tablet PO 08/23/24 08:59 40 mg QDAY GHADA Administration Pharmacy Consult 1 each 07/28/24 09:41 Vancomycin Pharmacy To Dose 1 Each Each IV 08/27/24 09:40 QDAY PRN CONSULT Rivaroxaban 20 mg 07/25/24 17:30 07/28/24 17:13 Rivaroxaban 10 Mg Tablet PO 08/24/24 17:29 20 mg WSUPPER GHADA Administration Spironolactone 25 mg 07/25/24 09:00 07/28/24 06:58 Spironolactone 25 Mg Tablet PO 08/24/24 08:59 25 mg QDAY GHADA Administration Ursodiol 300 mg 07/27/24 12:00 07/29/24 07:27 Ursodiol 300 Mg Capsule PO 08/26/24 11:59 300 mg QID GHADA Administration Plan Nneka Burciaga is a 74-year-old female with a past medical history of COPD on 2 L home oxygen, HFpEF (55-60% on 11/2023), a-fib on Xarelto, hypertension, and chronic pain who presented to the ED on 07/22 status-post multiple ground-level falls at home and found to have enlarged CBD on imaging, admitted for further work-up. #Enlarged CBD #History of cholecystectomy #? Choledocolithiasis #Transaminitis #Hyperbilirubinemia No fever, chills, nausea, vomiting, abdominal pain, change in bowel habits. On admission: WBC 25, ESR 86, CRP 12, procal 5.2, AST 134, ALT 54, alk phos 137, T. bili 2.3. Gallbladder ultrasound: Enlarged CBD 1.2 cm. MRCP: Extrahepatic biliary tract dilatation with abrupt termination at distal CBD. HIDA scan showed a large common hepatic and CBD, although contrast in the small bowel. Spoke to furnace process plant operator, Dr. 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 Zosyn (07/23-07/25) CT abdomen pelvis showed bilateral pneumonia with small bilateral pleural effusions. Continues to show extrahepatic biliary tract dilatation. ? GI consulted, appreciate recommendations ? Transfer process initiated in order to obtain ERCP with [facility], however most facilities have declined ?Patient will be n.p.o. after midnight for ERCP in-house ? Zosyn 3.375 g IV q6h (07/27-) ? Ursodiol 300 mg p.o. q6h #Urinary tract infection UA showed turbid urine, 2+ blood, 23 RBC, WBC 966, 3+ bacteria, hyaline casts present. Zosyn (07/23-07/25), ceftriaxone (07/25-07/27) ? Urine culture: Klebsiella pneumonia ? Zosyn 3.375 g IV q6h (07/27-) #Acute kidney injury, prerenal vs intrarenal, resolved May be due to dehydration vs rhabdomyolysis ? Avoid nephrotoxic agents, renally dose medications ? Encourage increased p.o. intake #Rhabdomyolysis, improving Found down at home after fall, may have been for a couple of hours per history. Initial CK 3500, will continue to trend. ? Received 3 L IVF per sepsis protocol and an additional 1 L afterwards ? Encourage increased p.o. intake #HFpEF (EF 55-60% on 11/2023) Follows-up with Dr. Browning outpatient. Not in exacerbation and not overloaded at this time. BNP 395. ? Cardiology consulted, appreciate recommendations ? Follow-up echo ? Carvedilol 3.125 mg p.o. BIDWM -> HELD ? Spironolactone 25 mg p.o. daily ? Holding lasix ? Strict I's and O's, daily weights, low sodium diet, fliud restriction (2 L/day) #Atrial fibrillation, on Xarelto and amiodarone On 07/24, Heart rate noted to be in the 40s and 50s with associated drowsiness, EKG showed sinus bradycardia with first-degree AV block Per cardio recommendations, will decrease amiodarone to 200 mg daily and discontinue Coreg May consider increasing her amiodarone back to her home dose of 200 mg twice daily ? Amiodarone 200 mg p.o. daily ? Restarted Xarelto #COPD on 2 L home O2 Does not have any inhalers at home per son. ? Duonebs scheduled #History of hypertension ? Carvedilol as above #Chronic pain ? Gabapentin 100 mg p.o. 3 times daily ? Duloxetine 60 mg p.o. twice daily ? Morphine sulfate 15 mg p.o. in AM and 30 mg in PM ? [place] 5 q6h prn Hospital management: Disposition: N.p.o. after midnight, ERCP tomorrow Diet: cardiac, low sodium, n.p.o. after midnight Lines: PIV DVT prophylaxis: SCDs GI prophylaxis: pantoprazole 40 mg po daily CODE STATUS: DNR/DNI Patient's plan and care discussed with my attending, Dr. Buddy Styles MD PGY-2 Attending Provider Attestation/Addendum I reviewed labs, imaging, EKG, home medications and prior available records. Face to face evaluation was performed by me. I have personally examined the patient and discussed assessment and plan with the IM team. I reviewed the resident note and agree with the plan with exceptions as below. Ground-level fall Acute UTI, gram-negative rods COPD without exacerbation HFpEF EF: 55 to 60%, chronic Atrial fibrillation with controlled ventricular rhythm SAPPHIRE, rhabdomyolysis in the setting of fall CBD duct dilation Transaminitis Bradycardia, possibly due to amiodarone, now tachycardic Heart rate increased. Increased amiodarone Noted frequent PVCs. Ordered follow-up magnesium and potassium levels WBC is uptrending: Discussed with GI: Added IV vancomycin. Ordered CT scan of the abdomen/pelvis. Trend LFTs: Uptrending. Continue IV Zosyn/vancomycin. Started ursodiol Creatinine improved. Monitor kidney function. Avoid nephrotoxins. Renally dosed medications. Remains in pain. MRCP showed CBD duct dilation. Follow-up GI ID recommendations: Plan for ERCP on Monday She has significant severe pain requiring IV opiates and frequent dosing Discussed with case management as patient wants to sleep with her recliner which helps with her pain management. Protect sleep hours Ordered PT: Recommended SNF once she is stable
[2024-07-29] MEDS: Morphine Sulf 15 MG TABCR 30 MG PO (08:59)
[2024-07-29] MEDS: AMIODARONE HCL 200 MG TABLET PO (09:00)
[2024-07-29] MEDS: Furosemide 40 MG TABLET PO ×2 (09:00→20:04)
[2024-07-29] MEDS: SPIRONOLACTONE 25 MG TABLET PO (09:00)
[2024-07-29] MEDS: PANTOPRAZOLE 40 MG TABLET PO (09:00)
[2024-07-29] MEDS: POTASSIUM CHLORIDE 20 mEq TABCR 40 MEQ PO (09:00)
[2024-07-29] MEDS: METHIMAZOLE 5 MG TABLET PO (09:00)
[2024-07-29] MEDS: DULoxetine HCL 30 MG CAPSULE 60 MG PO ×2 (09:00→20:03)
[2024-07-29] MEDS: ALBUTEROL/IPRATROPIUM (Duoneb) RT SOL 3 ML NEBU INH (09:21)
[2024-07-29] MEDS: VANCOMYCIN/D5W 1,250 MG IVPB 250 ML 120 MG IV ×2 (11:19→22:24)
[2024-07-29 11:37] LABS: Alanine Aminotransferase 87 U/L (10-49); Albumin, Serum 2.5 gm/dL (3.4-4.8); Alkaline Phosphatase 224 U/L (46-116); Aspartate Amino Transferase 153 U/L (0-34); Bilirubin,Direct 2.5 mg/dL (0.0-0.3); Bilirubin,Total 3.6 mg/dL (0.3-1.2); Total Protein 5.4 gm/dL (5.7-8.2)
--- NOTE | 2024-07-29 12:16 | ESPR_ITS ---
<Statement entered by Jason Browning MD - 07/30/24 08:28> The patient continues to fairly well remains sensitive on amiodarone no further episodes of A-fib or bradycardia stable to have ERCP evaluated patient with PGY 3 we will continue to monitor cardiac status with primary team patient is cleared to have ERCP Documentation for date of: 07/29/24 Subjective Subjective Interval history: Patient examined bedside this morning, no acute overnight event. Her heart rate is in high 90s. Continue amiodarone [address] Carrillo is planning to do ERCP tomorrow. She is complaining of generalized body ache. Exam Vital Signs Temp Pulse Resp BP Pulse Ox O2 Del Method O2 Flow Rate 96.9 F 108 H 20 97/66 95 Oxy Mask 4 07/29/24 08:00 07/29/24 09:22 07/29/24 09:22 07/29/24 09:00 07/29/24 09:22 07/29/24 08:00 07/29/24 09:22 Narrative Exam GENERAL: Comfortable adult seen resting in hospital bed, on 2L ofo2 HEENT: Normocephalic, atraumatic. Pupils are equal and reactive. Oral mucosa is moist. NECK: Supple, nontender, no JVD CHEST: Symmetrical, atraumatic and with equal expansion ,Nontender on palpation CARDIOVASCULAR:sinus brday . S1/S2. no murmur or gallop rub or extra beats. LUNGS: Bilateral wheezing heard ABDOMEN: Soft, flat, nontender to palpation, no guarding or rebound tenderness. Active and normal bowel sounds. EXTREMITIES:Moves all 4 extremities,No B/L LE edema. SKIN: Warm and dry, no jaundice or rashes noted. NEURO: Patient is AO x 3, Cranial nerves II through XII grossly intact. There is no focal neurologic deficits noted. PSYCHIATRIC: Patient is in normal mood, cooperative, no SI or HI or hallucinations. Objective Labs 07/29/24 05:28 07/29/24 05:28 Labs: Laboratory Results - last 24 hr 07/28/24 07/29/24 07/29/24 14:32 05:28 05:28 WBC 25.5 H RBC 4.33 Hgb 12.1 Hct 36.7 MCV 85 MCH 27.9 MCHC 33.0 RDW Std Deviation 48.2 H Plt Count 443 H D Neut % (Auto) 81 H Lymph % (Auto) 7 L [place] % (Auto) 10 Eos % (Auto) 1 Baso % (Auto) 0 Neut # (Auto) 20.6 H Lymph # (Auto) 1.8 [place] # (Auto) 2.5 H Eos # (Auto) 0.1 Baso # (Auto) 0.1 Immature Gran # (Auto) 0.46 H Absolute Nucleated RBC 0.00 Immature Gran % 2 H Nucleated RBC % 0 Sodium 131 L Potassium 4.1 D 3.7 Chloride 94 L Carbon Dioxide 30.1 Anion Gap 7 BUN 20 Creatinine 0.8 Estim Creat Clear Calc 71.4 eGFR > 60 BUN/Creatinine Ratio 25 H Glucose 89 Calculated Osmolality 264 L Calcium 8.2 L Corrected Calcium 9.2 Phosphorus 3.3 Magnesium 1.8 2.2 Total Bilirubin 3.5 H D 3.6 H Direct Bilirubin 2.5 H AST 150 H ALT Alkaline Phosphatase Total Protein Albumin Globulin Albumin/Globulin Ratio 07/29/24 07/29/24 07/29/24 05:28 05:28 05:28 WBC RBC Hgb Hct MCV MCH MCHC RDW Std Deviation Plt Count Neut % (Auto) Lymph % (Auto) [place] % (Auto) Eos % (Auto) Baso % (Auto) Neut # (Auto) Lymph # (Auto) [place] # (Auto) Eos # (Auto) Baso # (Auto) Immature Gran # (Auto) Absolute Nucleated RBC Immature Gran % Nucleated RBC % Sodium Potassium Chloride Carbon Dioxide Anion Gap BUN Creatinine Estim Creat Clear Calc eGFR BUN/Creatinine Ratio Glucose Calculated Osmolality Calcium Corrected Calcium Phosphorus Magnesium Total Bilirubin Direct Bilirubin AST 153 H ALT 83 H 87 H Alkaline Phosphatase 220 H 224 H Total Protein 5.9 Albumin Globulin Albumin/Globulin Ratio 07/29/24 07/29/24 05:28 05:28 WBC RBC Hgb Hct MCV MCH MCHC RDW Std Deviation Plt Count Neut % (Auto) Lymph % (Auto) [place] % (Auto) Eos % (Auto) Baso % (Auto) Neut # (Auto) Lymph # (Auto) [place] # (Auto) Eos # (Auto) Baso # (Auto) Immature Gran # (Auto) Absolute Nucleated RBC Immature Gran % Nucleated RBC % Sodium Potassium Chloride Carbon Dioxide Anion Gap BUN Creatinine Estim Creat Clear Calc eGFR BUN/Creatinine Ratio Glucose Calculated Osmolality Calcium Corrected Calcium Phosphorus Magnesium Total Bilirubin Direct Bilirubin AST ALT Alkaline Phosphatase Total Protein 5.4 L Albumin 2.7 L 2.5 L Globulin 3.2 Albumin/Globulin Ratio 0.8 L Quality Measures Quality Measures none Advance care planning discussed with:: patient Assessment & Plan Assessment Current Active Medications: Generic Name Dose Route Start Last Admin Trade Name Freq PRN Reason Stop Dose Admin Acetaminophen 650 mg 07/23/24 15:30 07/25/24 10:26 Acetaminophen 325 Mg Tablet PO 08/22/24 15:29 650 mg Q6H PRN Administration PAIN OR FEVER > 100.4 Protocol Hydrocodone Bitart/Acetaminophen 1 tab 07/29/24 04:46 07/29/24 07:27 Hydrocodone/Apap 5/325 Tablet PO 08/03/24 04:45 1 tab Q6HR PRN Administration PAIN SCALE 7-10 (Severe Albuterol/Ipratropium 3 ml 07/27/24 13:32 07/29/24 09:21 Albuterol/Ipratropium (Duoneb) Rt Lauren 3 Ml Nebu INH 08/24/24 08:44 3 ml Q4HRRT PRN Administration wheezing, shortness of breath Amiodarone HCl 200 mg 07/25/24 09:00 07/29/24 09:00 Amiodarone Hcl 200 Mg Tablet PO 08/24/24 08:59 200 mg QDAY GHADA Administration Buspirone HCl 15 mg 07/24/24 10:57 07/28/24 23:06 Buspirone Hcl 5 Mg Tablet PO 08/23/24 10:56 15 mg TID PRN Administration Anxiety Duloxetine HCl 60 mg 07/24/24 21:00 07/29/24 09:00 Duloxetine Hcl 30 Mg Capsule PO 08/23/24 20:59 60 mg BID GHADA Administration Furosemide 40 mg 07/27/24 13:45 07/29/24 09:00 Furosemide 40 Mg Tablet PO 08/26/24 13:44 40 mg BID GHADA Administration Gabapentin 100 mg 07/28/24 09:00 07/29/24 07:27 Gabapentin 100 Mg Capsule PO 08/27/24 08:59 100 mg TID GHADA Administration Piperacillin/Tazobactam/Dextrose 3.375 gm in 50 mls @ 100 mls/hr 07/27/24 12:00 07/29/24 11:28 Zosyn IV 08/03/24 11:59 100 mls/hr Q6HR GHADA Administration Vancomycin HCl/Dextrose 250 mls @ 120 mls/hr 07/28/24 10:00 07/29/24 11:19 Vancomycin/D5w 1,250 Mg Ivpb IV 08/04/24 09:59 120 mls/hr BID@1000,2200 GHADA Administration Protocol Methimazole 5 mg 07/23/24 09:00 07/29/24 09:00 Methimazole 5 Mg Tablet PO 08/22/24 08:59 5 mg DAILY GHADA Administration Morphine Sulfate 30 mg 07/28/24 09:00 07/29/24 08:59 Morphine Sulf 15 Mg Tabcr PO 08/02/24 08:59 30 mg QDAY GHADA Administration Protocol Morphine Sulfate 45 mg 07/29/24 21:00 Morphine Sulf 15 Mg Tabcr PO 08/03/24 20:59 QPM GHADA Protocol Ondansetron HCl 4 mg 07/23/24 15:34 07/23/24 16:49 Ondansetron Inj 2 Mg/Ml Inj 2 Ml IV 08/22/24 15:33 4 mg Q6H PRN Administration NAUSEA OR VOMITING Protocol Pantoprazole Sodium 40 mg 07/24/24 09:00 07/29/24 09:00 Pantoprazole 40 Mg Tablet PO 08/23/24 08:59 40 mg QDAY GHADA Administration Pharmacy Consult 1 each 07/28/24 09:41 Vancomycin Pharmacy To Dose 1 Each Each IV 08/27/24 09:40 QDAY PRN CONSULT Rivaroxaban 20 mg 07/25/24 17:30 07/28/24 17:13 Rivaroxaban 10 Mg Tablet PO 08/24/24 17:29 20 mg WSUPPER GHADA Administration Spironolactone 25 mg 07/25/24 09:00 07/29/24 09:00 Spironolactone 25 Mg Tablet PO 08/24/24 08:59 25 mg QDAY GHADA Administration Ursodiol 300 mg 07/27/24 12:00 07/29/24 11:28 Ursodiol 300 Mg Capsule PO 08/26/24 11:59 300 mg QID GHADA Administration Plan 74-year-old female with past medical history of COPD on 2L home o2 , CHF last echo on 2020 showed ejection fraction of 50 to 55%, A-fib on anticoagulation xarelto chronic back pain, hypertension came to the ED with chief complaint of fall. In the ED ultrasound showed CBD 1.27 cm MRCP was done which showed abnormal Abnormal extra hepatic biliary tract dilatation with abrupt termination of the distal common bile duct, differential would include malignant neoplasm at the ampulla. Cervical CT was negative for any fracture, head CT was negative for any fracture, his CT was negative for any fracture, lumbar thoracic spine CT?negative for any fracture. Initial vitals BP?115/57, P?60, RR?18, temperature?98. labs-WBC?24.9, hemoglobin?11.6, HCT?35.8,ESR- 86, na-133,cr-1.6 , total bilirubin?2.3, AST?134, ALT?54, alk phos?137, total creatinine 3532, troponin negative, CRP 12.4, BNP 395. Dr. Carrillo is planning to do ERCP. Cardiology consulted for management of fluids in the setting of rhabdo. #HFpEF 55-60%. -BNP -395 -Echo- (11/20/2023) Normal LV size and function. .Diastolic function present but cannot grade due to AFib. Estimated EF 55-60%, Normal RV size and function. Mild TR. Trace MR. -home meds coreg ,spironalactone, Lasix. -patient received 2L of fluid in ED for Sepsis and Rhabdo , currently on 125 ml/hr of NS , continue the maintainance fluid as she is not heart failure with reduced EF . and currently not on heart failure . 07/24/24: bed side her HR was in between 47-55 , she was drowsy . EKG showed sinus abel with first degree AV block , will decrease Amio to 200 Q day and discontinue coreg. He CK has decreased . pending Dr Carrillo reccs for ERCP. 07/25/2024: her heart rate is currently in 80s , continue to hold coreg . she is complaining of generalized pain in her body , primary team has decreased the dose of her morphine. 07/26/24: she is pending transfer for ERCP with [facility] as per Dr. Carrillo if she is not able to transfer by Monday then he will do ERCP in the hospital. Earlier her heart rate was in 50s they held the amiodarone and her heart rate went up to 100 so amiodarone Q day was given. 07/27/2024: Patient developed new onset bilateral lower extremity swelling and would be benefit from resuming her home Lasix in addition to her spironolactone. Plan:- continue holding coreg.- resume home Lasix. 07/29/2024:Continue Lasix and amiodarone for now. Pending ERCP by Dr. Carrillo #A-fib. - chadsvac score- 5 -she is amiodarone 200 bid -coreg- 6.25 bid - on xarelto -07/24/24: will DC coreg for now in setting of bradycardia and change amio to Q day . -07/25/24: continue amio 200 q day. -07/26/24: continue amio 200 q day. Plan: - Continue amiodarone 200 mg QD and Xarelto. Management of other problems as per primary team. Case discussed with my attending Dr Browning. Safia Alanis MD,PGY-3
[2024-07-29] MEDS: BusPIRone HCL 5 MG TABLET 15 MG PO (13:24)
--- NOTE | 2024-07-29 15:36 | PC.SS ---
Rounding Note: Plan is for patient to obtain ERCP procedure tomorrow. Dr. Carrillo to conduct procedure.
--- NOTE | 2024-07-29 15:43 | PD.IMPROG ---
Documentation for date of: 07/29/24 Subjective Subjective Interval history: Patient was seen and examined today. Sepsis. Exam Vital Signs Temp Pulse Resp BP Pulse Ox O2 Del Method O2 Flow Rate 97.6 F 87 20 113/78 92 L Oxy Mask 4 07/29/24 12:00 07/29/24 12:00 07/29/24 12:00 07/29/24 12:00 07/29/24 12:00 07/29/24 12:00 07/29/24 12:00 Routine Abdominal Exam Comments: No significant finding during abdominal exam Objective Labs 07/29/24 05:28 07/29/24 05:28 Labs: Laboratory Results - last 24 hr 07/28/24 07/29/24 07/29/24 14:32 05:28 05:28 WBC 25.5 H RBC 4.33 Hgb 12.1 Hct 36.7 MCV 85 MCH 27.9 MCHC 33.0 RDW Std Deviation 48.2 H Plt Count 443 H D Neut % (Auto) 81 H Lymph % (Auto) 7 L [place] % (Auto) 10 Eos % (Auto) 1 Baso % (Auto) 0 Neut # (Auto) 20.6 H Lymph # (Auto) 1.8 [place] # (Auto) 2.5 H Eos # (Auto) 0.1 Baso # (Auto) 0.1 Immature Gran # (Auto) 0.46 H Absolute Nucleated RBC 0.00 Immature Gran % 2 H Nucleated RBC % 0 Sodium 131 L Potassium 4.1 D 3.7 Chloride 94 L Carbon Dioxide 30.1 Anion Gap 7 BUN 20 Creatinine 0.8 Estim Creat Clear Calc 71.4 eGFR > 60 BUN/Creatinine Ratio 25 H Glucose 89 Calculated Osmolality 264 L Calcium 8.2 L Corrected Calcium 9.2 Phosphorus 3.3 Magnesium 1.8 2.2 Total Bilirubin 3.5 H D 3.6 H Direct Bilirubin 2.5 H AST 150 H ALT Alkaline Phosphatase Total Protein Albumin Globulin Albumin/Globulin Ratio 07/29/24 07/29/24 07/29/24 05:28 05:28 05:28 WBC RBC Hgb Hct MCV MCH MCHC RDW Std Deviation Plt Count Neut % (Auto) Lymph % (Auto) [place] % (Auto) Eos % (Auto) Baso % (Auto) Neut # (Auto) Lymph # (Auto) [place] # (Auto) Eos # (Auto) Baso # (Auto) Immature Gran # (Auto) Absolute Nucleated RBC Immature Gran % Nucleated RBC % Sodium Potassium Chloride Carbon Dioxide Anion Gap BUN Creatinine Estim Creat Clear Calc eGFR BUN/Creatinine Ratio Glucose Calculated Osmolality Calcium Corrected Calcium Phosphorus Magnesium Total Bilirubin Direct Bilirubin AST 153 H ALT 83 H 87 H Alkaline Phosphatase 220 H 224 H Total Protein 5.9 Albumin Globulin Albumin/Globulin Ratio 07/29/24 07/29/24 05:28 05:28 WBC RBC Hgb Hct MCV MCH MCHC RDW Std Deviation Plt Count Neut % (Auto) Lymph % (Auto) [place] % (Auto) Eos % (Auto) Baso % (Auto) Neut # (Auto) Lymph # (Auto) [place] # (Auto) Eos # (Auto) Baso # (Auto) Immature Gran # (Auto) Absolute Nucleated RBC Immature Gran % Nucleated RBC % Sodium Potassium Chloride Carbon Dioxide Anion Gap BUN Creatinine Estim Creat Clear Calc eGFR BUN/Creatinine Ratio Glucose Calculated Osmolality Calcium Corrected Calcium Phosphorus Magnesium Total Bilirubin Direct Bilirubin AST ALT Alkaline Phosphatase Total Protein 5.4 L Albumin 2.7 L 2.5 L Globulin 3.2 Albumin/Globulin Ratio 0.8 L Assessment & Plan A&P Narrative 74-year-old female with past medical history of COPD on 2L home o2 , CHF last echo on 2020 showed ejection fraction of 50 to 55%, A-fib on anticoagulation xarelto s/p ultrasound showed CBD 1.27 cm MRCP was done which showed abnormal Abnormal extra hepatic biliary tract dilatation with abrupt termination of the distal common bile duct Impression: Enlarged common hepatic common bile duct although contrast is present in small bowel Consider ERCP and biopsies follow-up to exclude malignant stricture at the ampulla Bili normal Pt does not have CBD obstruction LFTs mostly consistent with cirrhosis Will proceed with ERCP rule out ampullary malignancy and possible stent placement. Must get transferred to tertiary center Check CA 19-9 Call GI with any questions Time Spent With Patient Time: Total time spent is greater than 50% in coordination of care (as documented) at patient's floor/unit and/or counseling patient:
[2024-07-29] MEDS: RIVAROXABAN 10 MG TABLET 20 MG PO (17:52)
[2024-07-29] MEDS: Morphine Sulf 15 MG TABCR 45 MG PO (20:03)
[2024-07-29 22:09] LABS: Vancomycin,Trough 19.6 mcg/mL (5.0-10.0)
[2024-07-30] VITALS (16 sets, daily range): BP systolic 103–114; BP diastolic 64–75; PULSE 87–119; RESP 16–25; TEMP 36.1–36.5; O2SAT 91–94; BMI 11.0
[2024-07-30] MEDS: PIPER/TAZO 3.375 GM PREMIX 3.375 GM/50 ML BAG IV ×4 (00:59→21:09)
[2024-07-30] MEDS: GABAPENTIN 100 MG CAPSULE PO ×3 (05:32→21:09)
[2024-07-30] MEDS: ursodioL 300 MG CAPSULE PO ×3 (05:32→20:19)
[2024-07-30 05:55] LABS: Basophils # (Auto) 0.1 Thou/mm3 (0.0-0.2); Basophils % (Auto) 0 % (0-2.5); Eosinophils # (Auto) 0.4 Thou/mm3 (0.0-0.5); Eosinophils % (Auto) 2 % (0-10); Hematocrit 36.8 % (36.0-46.0); Hemoglobin 12.2 g/dL (12.0-16.0); Immature Granulocytes % (Auto) 2 % (0-0); Immature Granulocytes Auto 0.57 Thou/mm3 (0.00-0.00); Lymphocytes # (Auto) 1.8 Thou/mm3 (1.0-4.8); Lymphocytes % (Auto) 7 % (10-50); Mean Corpuscular HGB Conc 33.2 g/dl (31.0-37.0); Mean Corpuscular Hemoglobin 28.4 pg (25.0-35.0); Mean Corpuscular Volume 86 fL (80-100); Monocytes # (Auto) 2.7 Thou/mm3 (0.0-0.8); Monocytes % (Auto) 11 % (0-12); Neutrophils # (Auto) 19.1 Thou/mm3 (1.8-7.7); Neutrophils % (Auto) 78 % (37-80); Nucleated Red Blood Cell % 0 /100 WBC (0); Platelet Count 463 Thou/mm3 (140-440); RDW Standard Deviation 49.9 fL (36.4-46.3); White Blood Count 24.7 Thou/mm3 (3.6-11.0)
[2024-07-30 06:25] LABS: Alanine Aminotransferase 88 U/L (10-49); Albumin, Serum 2.8 gm/dL (3.4-4.8); Albumin/Globulin Ratio 0.8 (1.2-2.2); Alkaline Phosphatase 240 U/L (46-116); Anion Gap 11 (7-16); Aspartate Amino Transferase 172 U/L (0-34); BUN/Creatinine Ratio 22 Ratio (12-20); Bilirubin,Direct 2.6 mg/dL (0.0-0.3); Bilirubin,Total 3.6 mg/dL (0.3-1.2); Blood Urea Nitrogen 20 mg/dL (9-23); Carbon Dioxide 28.5 mMol/L (20.0-31.0); Chloride 96 mMol/L (98-107); Creatinine (Component) 0.9 mg/dL (0.6-1.3); Estimated Creatinine Clearance 63.1 mL/min (>60); Globulin 3.3 gm/dL (2.3-3.5); Glucose 67 mg/dL (74-106); Magnesium 2.1 mg/dL (1.6-2.6); Osmolality,Calculated 270 (275-295); Phosphorous 3.6 mg/dL (2.4-5.1); Potassium 4.6 mMol/L (3.4-5.1); Sodium 135 mMol/L (136-145); Total Protein 6.1 gm/dL (5.7-8.2); eGFR > 60 See Note
[2024-07-30] MEDS: HYDROcodone/APAP 5/325 TABLET 1 TAB PO ×2 (07:27→15:37)
--- NOTE | 2024-07-30 09:00 | ESPR_ITS ---
Documentation for date of: 07/30/24 Subjective Subjective Interval history: Overnight, no acute events reported. Patient's p.o. meds were held this morning and lieu of patient's ERCP. However, patient has been on Xarelto, and last dose was yesterday. As a result, patient's ERCP will be rescheduled to . Will hold Xarelto until after procedure is done. Patient was visibly upset after hearing news. However, reassured that patient will hopefully get ERCP prior to discharge. Also ordered CA 19?9 which she can follow-up outpatient for results. Patient appeared to be more somnolent today, and requiring more oxygen via oxy mask, however most likely patient was tired as patient was complaining of not being able to sleep last night. Exam Vital Signs Temp Pulse Resp BP Pulse Ox O2 Del Method O2 Flow Rate 97 F 113 H 20 111/64 94 L Oxy Mask 5 07/30/24 07:50 07/30/24 08:00 07/30/24 07:50 07/30/24 07:50 07/30/24 07:50 07/30/24 07:50 07/30/24 07:50 Narrative Exam General: AOx3, somnolent, in no apparent distress, able to speak full sentences, on oxy mask HEENT: NC/AT, mucous membranes moist, bilateral sclera anicteric Cardiovascular: regular rate and rhythm, S1/S2 present, no murmurs appreciated Pulmonary: mild upper airway wheezing, no rales/rhonchi Abdominal: obese soft, non-tender, non-distended, no rebound/guarding, normal bowel sounds present Musculoskeletal: normal ROM, no peripheral edema Skin: chronic venous stasis changes, warm and dry, intact, no rashes Neuro: CN II-XII intact, no focal deficits Objective Labs 07/30/24 04:59 07/30/24 04:59 Labs: Laboratory Results - last 24 hr 07/29/24 07/29/24 07/30/24 05:28 21:20 04:59 WBC 24.7 H RBC 4.30 Hgb 12.2 Hct 36.8 MCV 86 MCH 28.4 MCHC 33.2 RDW Std Deviation 49.9 H Plt Count 463 H Neut % (Auto) 78 Lymph % (Auto) 7 L [place] % (Auto) 11 Eos % (Auto) 2 Baso % (Auto) 0 Neut # (Auto) 19.1 H Lymph # (Auto) 1.8 [place] # (Auto) 2.7 H Eos # (Auto) 0.4 Baso # (Auto) 0.1 Immature Gran # (Auto) 0.57 H Absolute Nucleated RBC 0.00 Immature Gran % 2 H Nucleated RBC % 0 Sodium 135 L Potassium 4.6 D Chloride 96 L Carbon Dioxide 28.5 Anion Gap 11 BUN 20 Creatinine 0.9 Estim Creat Clear Calc 63.1 eGFR > 60 BUN/Creatinine Ratio 22 H Glucose 67 L Calculated Osmolality 270 L Calcium 8.0 L Corrected Calcium 9.0 Phosphorus 3.6 Magnesium 2.1 Total Bilirubin 3.6 H 3.6 H Direct Bilirubin 2.5 H 2.6 H AST 153 H 172 H ALT 87 H 88 H Alkaline Phosphatase 224 H 240 H Total Protein 5.4 L 6.1 Albumin 2.5 L 2.8 L Globulin 3.3 Albumin/Globulin Ratio 0.8 L Vancomycin Trough 19.6 H Quality Measures Quality Measures none Advance care planning discussed with:: patient Assessment & Plan Assessment Current Active Medications: Generic Name Dose Route Start Last Admin Trade Name Freq PRN Reason Stop Dose Admin Acetaminophen 650 mg 07/23/24 15:30 07/25/24 10:26 Acetaminophen 325 Mg Tablet PO 08/22/24 15:29 650 mg Q6H PRN Administration PAIN OR FEVER > 100.4 Protocol Hydrocodone Bitart/Acetaminophen 1 tab 07/29/24 04:46 07/30/24 07:27 Hydrocodone/Apap 5/325 Tablet PO 08/03/24 04:45 1 tab Q6HR PRN Administration PAIN SCALE 7-10 (Severe Albuterol/Ipratropium 3 ml 07/27/24 13:32 07/29/24 09:21 Albuterol/Ipratropium (Duoneb) Rt Lauren 3 Ml Nebu INH 08/24/24 08:44 3 ml Q4HRRT PRN Administration wheezing, shortness of breath Amiodarone HCl 200 mg 07/25/24 09:00 07/30/24 08:01 Amiodarone Hcl 200 Mg Tablet PO 08/24/24 08:59 Not Given QDAY GHADA Buspirone HCl 15 mg 07/24/24 10:57 07/29/24 13:24 Buspirone Hcl 5 Mg Tablet PO 08/23/24 10:56 15 mg TID PRN Administration Anxiety Duloxetine HCl 60 mg 07/24/24 21:00 07/30/24 08:01 Duloxetine Hcl 30 Mg Capsule PO 08/23/24 20:59 Not Given BID GHADA Furosemide 40 mg 07/27/24 13:45 07/30/24 08:01 Furosemide 40 Mg Tablet PO 08/26/24 13:44 Not Given BID GHADA Gabapentin 100 mg 07/28/24 09:00 07/30/24 05:32 Gabapentin 100 Mg Capsule PO 08/27/24 08:59 100 mg TID GHADA Administration Piperacillin/Tazobactam/Dextrose 3.375 gm in 50 mls @ 100 mls/hr 07/27/24 12:00 07/30/24 05:32 Zosyn IV 08/03/24 11:59 100 mls/hr Q6HR GHADA Administration Vancomycin/Sodium Chloride 200 mls @ 120 mls/hr 07/30/24 10:00 Vancomycin/Ns 1 Gm Ivpb IV 08/06/24 09:59 Q12H GHADA Protocol Methimazole 5 mg 07/23/24 09:00 07/30/24 08:01 Methimazole 5 Mg Tablet PO 08/22/24 08:59 Not Given DAILY GHADA Morphine Sulfate 30 mg 07/28/24 09:00 07/30/24 08:01 Morphine Sulf 15 Mg Tabcr PO 08/02/24 08:59 Not Given QDAY GHADA Protocol Morphine Sulfate 45 mg 07/29/24 21:00 07/29/24 20:03 Morphine Sulf 15 Mg Tabcr PO 08/03/24 20:59 45 mg QPM GHADA Administration Protocol Ondansetron HCl 4 mg 07/23/24 15:34 07/23/24 16:49 Ondansetron Inj 2 Mg/Ml Inj 2 Ml IV 08/22/24 15:33 4 mg Q6H PRN Administration NAUSEA OR VOMITING Protocol Pantoprazole Sodium 40 mg 07/24/24 09:00 07/30/24 08:01 Pantoprazole 40 Mg Tablet PO 08/23/24 08:59 Not Given QDAY GHADA Pharmacy Consult 1 each 07/28/24 09:41 Vancomycin Pharmacy To Dose 1 Each Each IV 08/27/24 09:40 QDAY PRN CONSULT Rivaroxaban 20 mg 07/25/24 17:30 07/29/24 17:52 Rivaroxaban 10 Mg Tablet PO 08/24/24 17:29 20 mg WSUPPER GHADA Administration Spironolactone 25 mg 07/25/24 09:00 07/30/24 08:02 Spironolactone 25 Mg Tablet PO 08/24/24 08:59 Not Given QDAY GHADA Ursodiol 300 mg 07/27/24 12:00 07/30/24 05:32 Ursodiol 300 Mg Capsule PO 08/26/24 11:59 300 mg QID GHADA Administration Plan Nneka Burciaga is a 74-year-old female with a past medical history of COPD on 2 L home oxygen, HFpEF (55-60% on 11/2023), a-fib on Xarelto, hypertension, and chronic pain who presented to the ED on 07/22 status-post multiple ground-level falls at home and found to have enlarged CBD on imaging, admitted for further work-up. #Enlarged CBD #History of cholecystectomy #? Choledocolithiasis #Transaminitis #Hyperbilirubinemia No fever, chills, nausea, vomiting, abdominal pain, change in bowel habits. On admission: WBC 25, ESR 86, CRP 12, procal 5.2, AST 134, ALT 54, alk phos 137, T. bili 2.3. Gallbladder ultrasound: Enlarged CBD 1.2 cm. MRCP: Extrahepatic biliary tract dilatation with abrupt termination at distal CBD. HIDA scan showed a large common hepatic and CBD, although contrast in the small bowel. Spoke to terrazzo finisher, Dr. 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 Zosyn (07/23-07/25) CT abdomen pelvis showed bilateral pneumonia with small bilateral pleural effusions. Continues to show extrahepatic biliary tract dilatation. ? GI consulted, appreciate recommendations ? Transfer process initiated in order to obtain ERCP with [facility], however most facilities have declined ? Patient will be n.p.o. after midnight on Monday for ERCP on ? Zosyn 3.375 g IV q6h (07/27-) ? Ursodiol 300 mg p.o. q6h #Urinary tract infection UA showed turbid urine, 2+ blood, 23 RBC, WBC 966, 3+ bacteria, hyaline casts present. Zosyn (07/23-07/25), ceftriaxone (07/25-07/27) ? Urine culture: Klebsiella pneumonia ? Zosyn 3.375 g IV q6h (07/27-) #Acute kidney injury, prerenal vs intrarenal, resolved May be due to dehydration vs rhabdomyolysis ? Avoid nephrotoxic agents, renally dose medications ? Encourage increased p.o. intake #Rhabdomyolysis, improving Found down at home after fall, may have been for a couple of hours per history. Initial CK 3500, will continue to trend. ? Received 3 L IVF per sepsis protocol and an additional 1 L afterwards ? Encourage increased p.o. intake #HFpEF (EF 55-60% on 11/2023) Follows-up with Dr. Browning outpatient. Not in exacerbation and not overloaded at this time. BNP 395. ? Cardiology consulted, appreciate recommendations ? Follow-up echo ? Carvedilol 3.125 mg p.o. BIDWM -> HELD ? Spironolactone 25 mg p.o. daily ? Holding lasix ? Strict I's and O's, daily weights, low sodium diet, fliud restriction (2 L/day) #Atrial fibrillation, on Xarelto and amiodarone On 07/24, Heart rate noted to be in the 40s and 50s with associated drowsiness, EKG showed sinus bradycardia with first-degree AV block Per cardio recommendations, will decrease amiodarone to 200 mg daily and discontinue Coreg May consider increasing her amiodarone back to her home dose of 200 mg twice daily ? Amiodarone 200 mg p.o. daily most likely can increase to twice daily based on patient's heart rate ? Holding Xarelto for ERCP #COPD on 2 L home O2 Does not have any inhalers at home per son. ? Duonebs scheduled #History of hypertension ? Carvedilol as above #Chronic pain ? Gabapentin 100 mg p.o. 3 times daily ? Duloxetine 60 mg p.o. twice daily ? Morphine sulfate 15 mg p.o. in AM and 30 mg in PM ? [place] 5 q6h prn Hospital management: Disposition: N.p.o. after midnight, ERCP tomorrow Diet: cardiac, low sodium, n.p.o. after midnight Lines: PIV DVT prophylaxis: SCDs GI prophylaxis: pantoprazole 40 mg po daily CODE STATUS: DNR/DNI Patient's plan and care discussed with my attending, Dr. Cecilia Styles MD PGY-2 Attending Provider Attestation/Addendum I attest that I was physically present for the evaluation, physical examination, lab and imaging review of the patient with the residents. I discussed the case with the residents and agree with the findings and plans of care as documented above. At bedside today, patient appears comfortable. Heart rate has been controlled with amiodarone. She was scheduled for ERCP today but since patient took Xarelto, last dose yesterday, the procedure was postponed, likely to be done on . We will start the diet now and keep her n.p.o. after midnight for . Continues to be on IV Zosyn and ursodiol. We will continue to hold her Xarelto, continue with supplemental oxygen, continue carvedilol for hypertension, pain regimen for her chronic pain. Unique Brooks MD
[2024-07-30] MEDS: VANCOMYCIN/NS 1 GM IVPB 200 ML IV ×2 (10:26→21:55)
--- NOTE | 2024-07-30 10:35 | PC.SS ---
Addendum entered by GEMMA Faust 07/30/24 12:58: SS follow up: Ebonie at [facility] informs she can accept the patient at time of discharge. D/c date pending. Addendum entered by GEMMA Faust 07/30/24 12:48: SS follow up: patient's preferred facility is [facility] at this time. Original Note: SS follow up: per Dee at [facility], they are unable to accept patient at their facility as they are not accepting any admissions at this time until further notice.
--- NOTE | 2024-07-30 13:24 | ESPR_ITS ---
<Statement entered by Jason Browning MD - 07/31/24 12:44> Evaluate the patient examined patient remains in sinus rhythm rate controlled well does not complain of chest pain shortness of breath anticoagulants. In preparation ERCP agree with the treatment plan recommendation as documented by PGY 3 Documentation for date of: 07/30/24 Subjective Subjective Interval history: she was scheduled to do ERCP today , which is scheduled on , hold xarelto prior to procedure. Exam Vital Signs Temp Pulse Resp BP Pulse Ox O2 Del Method O2 Flow Rate 97.1 F 100 16 107/73 93 L Nasal Cannula 5 07/30/24 12:00 07/30/24 12:00 07/30/24 12:00 07/30/24 12:00 07/30/24 12:00 07/30/24 12:00 07/30/24 12:00 Narrative Exam GENERAL: Adul female seen resting in hospital bed, on 2L ofo2 , complaining of generalized body ache. HEENT: Normocephalic, atraumatic. Pupils are equal and reactive. Oral mucosa is moist. NECK: Supple, nontender, no JVD CHEST: Symmetrical, atraumatic and with equal expansion ,Nontender on palpation CARDIOVASCULAR: S1/S2. no murmur or gallop rub or extra beats. LUNGS: Bilateral wheezing heard ABDOMEN: Soft, flat, nontender to palpation, no guarding or rebound tenderness. Active and normal bowel sounds. EXTREMITIES:Moves all 4 extremities,No B/L LE edema. SKIN: Warm and dry, no jaundice or rashes noted. NEURO: Patient is AO x 3, Cranial nerves II through XII grossly intact. There is no focal neurologic deficits noted. PSYCHIATRIC: Patient is in normal mood, cooperative, no SI or HI or hallucinations. Objective Labs 07/30/24 04:59 07/30/24 04:59 Labs: Laboratory Results - last 24 hr 07/29/24 07/30/24 21:20 04:59 WBC 24.7 H RBC 4.30 Hgb 12.2 Hct 36.8 MCV 86 MCH 28.4 MCHC 33.2 RDW Std Deviation 49.9 H Plt Count 463 H Neut % (Auto) 78 Lymph % (Auto) 7 L [place] % (Auto) 11 Eos % (Auto) 2 Baso % (Auto) 0 Neut # (Auto) 19.1 H Lymph # (Auto) 1.8 [place] # (Auto) 2.7 H Eos # (Auto) 0.4 Baso # (Auto) 0.1 Immature Gran # (Auto) 0.57 H Absolute Nucleated RBC 0.00 Immature Gran % 2 H Nucleated RBC % 0 Sodium 135 L Potassium 4.6 D Chloride 96 L Carbon Dioxide 28.5 Anion Gap 11 BUN 20 Creatinine 0.9 Estim Creat Clear Calc 63.1 eGFR > 60 BUN/Creatinine Ratio 22 H Glucose 67 L Calculated Osmolality 270 L Calcium 8.0 L Corrected Calcium 9.0 Phosphorus 3.6 Magnesium 2.1 Total Bilirubin 3.6 H Direct Bilirubin 2.6 H AST 172 H ALT 88 H Alkaline Phosphatase 240 H Total Protein 6.1 Albumin 2.8 L Globulin 3.3 Albumin/Globulin Ratio 0.8 L Vancomycin Trough 19.6 H Quality Measures Quality Measures none Advance care planning discussed with:: patient Assessment & Plan Assessment Current Active Medications: Generic Name Dose Route Start Last Admin Trade Name Freq PRN Reason Stop Dose Admin Acetaminophen 650 mg 07/23/24 15:30 07/25/24 10:26 Acetaminophen 325 Mg Tablet PO 08/22/24 15:29 650 mg Q6H PRN Administration PAIN OR FEVER > 100.4 Protocol Hydrocodone Bitart/Acetaminophen 1 tab 07/29/24 04:46 07/30/24 07:27 Hydrocodone/Apap 5/325 Tablet PO 08/03/24 04:45 1 tab Q6HR PRN Administration PAIN SCALE 7-10 (Severe Albuterol/Ipratropium 3 ml 07/27/24 13:32 07/29/24 09:21 Albuterol/Ipratropium (Duoneb) Rt Lauren 3 Ml Nebu INH 08/24/24 08:44 3 ml Q4HRRT PRN Administration wheezing, shortness of breath Amiodarone HCl 200 mg 07/25/24 09:00 07/29/24 09:00 Amiodarone Hcl 200 Mg Tablet PO 08/24/24 08:59 200 mg QDAY GHADA Administration Buspirone HCl 15 mg 07/24/24 10:57 07/29/24 13:24 Buspirone Hcl 5 Mg Tablet PO 08/23/24 10:56 15 mg TID PRN Administration Anxiety Duloxetine HCl 60 mg 07/24/24 21:00 07/29/24 20:03 Duloxetine Hcl 30 Mg Capsule PO 08/23/24 20:59 60 mg BID GHADA Administration Furosemide 40 mg 07/27/24 13:45 07/29/24 20:04 Furosemide 40 Mg Tablet PO 08/26/24 13:44 40 mg BID GHADA Administration Gabapentin 100 mg 07/28/24 09:00 07/30/24 05:32 Gabapentin 100 Mg Capsule PO 08/27/24 08:59 100 mg TID GHADA Administration Vancomycin/Sodium Chloride 200 mls @ 120 mls/hr 07/30/24 10:00 07/30/24 10:26 Vancomycin/Ns 1 Gm Ivpb IV 08/06/24 09:59 120 mls/hr Q12H GHADA Administration Protocol Piperacillin/Tazobactam/Dextrose 3.375 gm in 50 mls @ 12.5 mls/hr 07/30/24 14:00 Zosyn IV 08/03/24 13:59 Q8HR GHADA Protocol Methimazole 5 mg 07/23/24 09:00 07/29/24 09:00 Methimazole 5 Mg Tablet PO 08/22/24 08:59 5 mg DAILY GHADA Administration Morphine Sulfate 30 mg 07/31/24 09:00 Morphine Sulf 15 Mg Tabcr PO 08/05/24 08:59 QDAY GHADA Protocol Morphine Sulfate 30 mg 07/30/24 21:00 Morphine Sulf 15 Mg Tabcr PO 08/04/24 20:59 QPM GHADA Protocol Ondansetron HCl 4 mg 07/23/24 15:34 07/23/24 16:49 Ondansetron Inj 2 Mg/Ml Inj 2 Ml IV 08/22/24 15:33 4 mg Q6H PRN Administration NAUSEA OR VOMITING Protocol Pantoprazole Sodium 40 mg 07/24/24 09:00 07/29/24 09:00 Pantoprazole 40 Mg Tablet PO 08/23/24 08:59 40 mg QDAY GHADA Administration Pharmacy Consult 1 each 07/28/24 09:41 Vancomycin Pharmacy To Dose 1 Each Each IV 08/27/24 09:40 QDAY PRN CONSULT Rivaroxaban 20 mg 07/25/24 17:30 07/29/24 17:52 Rivaroxaban 10 Mg Tablet PO 08/24/24 17:29 20 mg WSUPPER GHADA Administration Spironolactone 25 mg 07/25/24 09:00 07/30/24 08:02 Spironolactone 25 Mg Tablet PO 08/24/24 08:59 Not Given QDAY [facility] Ursodiol 300 mg 07/27/24 12:00 07/30/24 11:26 Ursodiol 300 Mg Capsule PO 08/26/24 11:59 Not Given QID GHADA Plan 74-year-old female with past medical history of COPD on 2L home o2 , CHF last echo on 2020 showed ejection fraction of 50 to 55%, A-fib on anticoagulation xarelto chronic back pain, hypertension came to the ED with chief complaint of fall. In the ED ultrasound showed CBD 1.27 cm MRCP was done which showed abnormal Abnormal extra hepatic biliary tract dilatation with abrupt termination of the distal common bile duct, differential would include malignant neoplasm at the ampulla. Cervical CT was negative for any fracture, head CT was negative for any fracture, his CT was negative for any fracture, lumbar thoracic spine CT?negative for any fracture. Initial vitals BP?115/57, P?60, RR?18, temperature?98. labs-WBC?24.9, hemoglobin?11.6, HCT?35.8,ESR- 86, na-133,cr-1.6 , total bilirubin?2.3, AST?134, ALT?54, alk phos?137, total creatinine 3532, troponin negative, CRP 12.4, BNP 395. Dr. Carrillo is planning to do ERCP. Cardiology consulted for management of fluids in the setting of rhabdo. #HFpEF 55-60%. -BNP -395 -Echo- (11/20/2023) Normal LV size and function. .Diastolic function present but cannot grade due to AFib. Estimated EF 55-60%, Normal RV size and function. Mild TR. Trace MR. -home meds coreg ,spironalactone, Lasix. -patient received 2L of fluid in ED for Sepsis and Rhabdo , currently on 125 ml/hr of NS , continue the maintainance fluid as she is not heart failure with reduced EF . and currently not on heart failure . 07/24/24: bed side her HR was in between 47-55 , she was drowsy . EKG showed sinus abel with first degree AV block , will decrease Amio to 200 Q day and discontinue coreg. He CK has decreased . pending Dr Carrillo reccs for ERCP. 07/25/2024: her heart rate is currently in 80s , continue to hold coreg . she is complaining of generalized pain in her body , primary team has decreased the dose of her morphine. 07/26/24: she is pending transfer for ERCP with [facility] as per Dr. Carrillo if she is not able to transfer by Monday then he will do ERCP in the hospital. Earlier her heart rate was in 50s they held the amiodarone and her heart rate went up to 100 so amiodarone Q day was given. 07/27/2024: Patient developed new onset bilateral lower extremity swelling and would be benefit from resuming her home Lasix in addition to her spironolactone. Plan:- continue holding coreg.- resume home Lasix. 07/29/2024:Continue Lasix and amiodarone for now. Pending ERCP by Dr. Carrillo 07/30/2024: she was scheduled to do ERCP today , which is scheduled on , hold xarelto prior to procedure. #A-fib. - chadsvac score- 5 -she is amiodarone 200 bid -coreg- 6.25 bid - on xarelto -07/24/24: will DC coreg for now in setting of bradycardia and change amio to Q day . -07/25/24: continue amio 200 q day. -07/26/24: continue amio 200 q day. Plan: - Continue amiodarone 200 mg QD and Xarelto(on hold ) Management of other problems as per primary team. Case discussed with my attending Dr Browning. Safia Alanis MD,PGY-3
[2024-07-30] MEDS: BusPIRone HCL 5 MG TABLET 15 MG PO (13:25)
[2024-07-30] MEDS: Furosemide 40 MG TABLET PO ×2 (13:27→20:21)
[2024-07-30] MEDS: SPIRONOLACTONE 25 MG TABLET PO (13:28)
[2024-07-30] MEDS: AMIODARONE HCL 200 MG TABLET PO (13:29)
[2024-07-30] MEDS: METHIMAZOLE 5 MG TABLET PO (13:29)
[2024-07-30] MEDS: DULoxetine HCL 30 MG CAPSULE 60 MG PO ×2 (13:29→20:21)
[2024-07-30] MEDS: PANTOPRAZOLE 40 MG TABLET PO (13:30)
--- NOTE | 2024-07-30 19:52 | PC.NURSE ---
86% O2 sat on 5L/min/nc- Increased to 6L/min.
[2024-07-30] MEDS: Morphine Sulf 15 MG TABCR 30 MG PO (20:20)
[2024-07-31] VITALS (15 sets, daily range): BP systolic 102–118; BP diastolic 57–72; PULSE 91–109; RESP 17–19; TEMP 36–36.4; O2SAT 91–96
[2024-07-31] MEDS: GABAPENTIN 100 MG CAPSULE PO ×3 (05:28→21:06)
[2024-07-31] MEDS: HYDROcodone/APAP 5/325 TABLET 1 TAB PO (05:28)
[2024-07-31] MEDS: ursodioL 300 MG CAPSULE PO ×4 (05:28→21:06)
[2024-07-31] MEDS: PIPER/TAZO 3.375 GM PREMIX 3.375 GM/50 ML BAG IV ×3 (05:28→21:07)
[2024-07-31 08:11] LABS: Basophils # (Auto) 0.1 Thou/mm3 (0.0-0.2); Basophils % (Auto) 0 % (0-2.5); Eosinophils # (Auto) 0.3 Thou/mm3 (0.0-0.5); Eosinophils % (Auto) 1 % (0-10); Hematocrit 37.3 % (36.0-46.0); Hemoglobin 12.4 g/dL (12.0-16.0); Immature Granulocytes % (Auto) 2 % (0-0); Immature Granulocytes Auto 0.41 Thou/mm3 (0.00-0.00); Lymphocytes # (Auto) 1.3 Thou/mm3 (1.0-4.8); Lymphocytes % (Auto) 5 % (10-50); Mean Corpuscular HGB Conc 33.2 g/dl (31.0-37.0); Mean Corpuscular Hemoglobin 27.7 pg (25.0-35.0); Mean Corpuscular Volume 83 fL (80-100); Monocytes # (Auto) 2.6 Thou/mm3 (0.0-0.8); Monocytes % (Auto) 10 % (0-12); Neutrophils # (Auto) 20.6 Thou/mm3 (1.8-7.7); Neutrophils % (Auto) 81 % (37-80); Nucleated Red Blood Cell % 0 /100 WBC (0); Platelet Count 461 Thou/mm3 (140-440); RDW Standard Deviation 48.8 fL (36.4-46.3); Red Blood Count 4.48 Miln/mm3 (4.00-5.20); White Blood Count 25.3 Thou/mm3 (3.6-11.0)
[2024-07-31 08:42] LABS: Alanine Aminotransferase 97 U/L (10-49); Albumin/Globulin Ratio 0.8 (1.2-2.2); Alkaline Phosphatase 280 U/L (46-116); Anion Gap 9 (7-16); Aspartate Amino Transferase 186 U/L (0-34); BUN/Creatinine Ratio 20 Ratio (12-20); Bilirubin,Total 4.1 mg/dL (0.3-1.2); Blood Urea Nitrogen 20 mg/dL (9-23); Calcium 8.2 mg/dL (8.3-10.6); Carbon Dioxide 31.9 mMol/L (20.0-31.0); Chloride 94 mMol/L (98-107); Estimated Creatinine Clearance 56.7 mL/min (>60); Globulin 3.7 gm/dL (2.3-3.5); Glucose 68 mg/dL (74-106); Magnesium 2.2 mg/dL (1.6-2.6); Osmolality,Calculated 270 (275-295); Sodium 135 mMol/L (136-145); Total Protein 6.7 gm/dL (5.7-8.2); eGFR 58 See Note
[2024-07-31] MEDS: DULoxetine HCL 30 MG CAPSULE 60 MG PO ×2 (08:50→21:06)
[2024-07-31] MEDS: SPIRONOLACTONE 25 MG TABLET PO (08:50)
[2024-07-31] MEDS: AMIODARONE HCL 200 MG TABLET PO ×2 (08:50→21:05)
[2024-07-31] MEDS: PANTOPRAZOLE 40 MG TABLET PO (08:50)
[2024-07-31] MEDS: Morphine Sulf 15 MG TABCR 30 MG PO ×2 (08:51→21:05)
[2024-07-31] MEDS: METHIMAZOLE 5 MG TABLET PO (08:51)
[2024-07-31] MEDS: Furosemide 40 MG TABLET PO ×2 (08:51→21:06)
[2024-07-31] MEDS: VANCOMYCIN/NS 1 GM IVPB 200 ML IV (09:14)
--- NOTE | 2024-07-31 11:47 | PD.IMPROG ---
Documentation for date of: 07/31/24 Subjective Subjective Interval history: Patient was seen and examined today no new complaint Xarelto has been held we will proceed with ERCP tomorrow. Exam Vital Signs Temp Pulse Resp BP Pulse Ox O2 Del Method O2 Flow Rate 97.1 F 109 H 17 102/66 95 Nasal Cannula 6 07/31/24 07:49 07/31/24 08:51 07/31/24 07:49 07/31/24 08:51 07/31/24 07:49 07/31/24 07:49 07/31/24 07:49 Routine Abdominal Exam Comments: Abdominal exam normal and benign no new significant finding Objective Labs 07/31/24 07:20 07/31/24 07:20 Labs: Laboratory Results - last 24 hr 07/31/24 07:20 WBC 25.3 H RBC 4.48 Hgb 12.4 Hct 37.3 MCV 83 MCH 27.7 MCHC 33.2 RDW Std Deviation 48.8 H Plt Count 461 H Neut % (Auto) 81 H Lymph % (Auto) 5 L [place] % (Auto) 10 Eos % (Auto) 1 Baso % (Auto) 0 Neut # (Auto) 20.6 H Lymph # (Auto) 1.3 [place] # (Auto) 2.6 H Eos # (Auto) 0.3 Baso # (Auto) 0.1 Immature Gran # (Auto) 0.41 H Absolute Nucleated RBC 0.00 Immature Gran % 2 H Nucleated RBC % 0 Sodium 135 L Potassium 4.0 D Chloride 94 L Carbon Dioxide 31.9 H Anion Gap 9 BUN 20 Creatinine 1.0 Estim Creat Clear Calc 56.7 L eGFR 58 L BUN/Creatinine Ratio 20 Glucose 68 L Calculated Osmolality 270 L Calcium 8.2 L Corrected Calcium 9.0 Phosphorus 3.0 Magnesium 2.2 Total Bilirubin 4.1 H D AST 186 H ALT 97 H Alkaline Phosphatase 280 H D Total Protein 6.7 Albumin 3.0 L Globulin 3.7 H Albumin/Globulin Ratio 0.8 L Assessment & Plan A&P Narrative 74-year-old female with past medical history of COPD on 2L home o2 , CHF last echo on 2020 showed ejection fraction of 50 to 55%, A-fib on anticoagulation xarelto s/p ultrasound showed CBD 1.27 cm MRCP was done which showed abnormal Abnormal extra hepatic biliary tract dilatation with abrupt termination of the distal common bile duct Impression: Enlarged common hepatic common bile duct although contrast is present in small bowel Consider ERCP and biopsies follow-up to exclude malignant stricture at the ampulla Bili normal Xarelto has been held since 07/29 Pt does not have CBD obstruction LFTs mostly consistent with cirrhosis Will proceed with ERCP rule out ampullary malignancy and possible stent placement Tomorrow Must get transferred to tertiary center Check CA 19-9 Call GI with any questions Time Spent With Patient Time: Total time spent is greater than 50% in coordination of care (as documented) at patient's floor/unit and/or counseling patient:
--- NOTE | 2024-07-31 13:10 | PD.RESPRO ---
Documentation for date of: 07/31/24 Subjective Subjective Interval history: No acute overnight events noted. Seen and examined at bedside and patient continues to feel chronic pain. Encouraged her to get out of bed and sit on a chair if she can tolerate as well as started her on incentive spirometer. Continuing to hold Xarelto in anticipation of ERCP tomorrow. Remains afebrile, HR 109 (increased amiodarone to 200 mg twice daily). WBC slight uptrend from 24.7 to 25.3. Platelets 461. T. bili increased from 3.6 to 4.1, ALP increased from 240 to 280, AST and ALT uptrending. Exam Vital Signs Temp Pulse Resp BP Pulse Ox O2 Del Method O2 Flow Rate 97.6 F 109 H 18 106/57 L 91 L Room Air 6 07/31/24 12:00 07/31/24 12:00 07/31/24 12:00 07/31/24 12:00 07/31/24 12:00 07/31/24 12:00 07/31/24 07:49 Narrative Exam General: AOx3, mild distress from pain, able to speak full sentences, on 5 L humidified NC HEENT: NC/AT, mucous membranes moist, bilateral sclera anicteric Cardiovascular: tachycardic, regular rhythm, S1/S2 present, no murmurs appreciated Pulmonary: clear to auscultation bilatearlly, no rales/rhonchi Abdominal: obese soft, non-tender, non-distended, no rebound/guarding, normal bowel sounds present Musculoskeletal: normal ROM, no peripheral edema Skin: chronic venous stasis changes, warm and dry, intact, no rashes Neuro: CN II-XII intact, no focal deficits Objective Labs 07/31/24 07:20 07/31/24 07:20 Labs: Laboratory Results - last 24 hr 07/31/24 07:20 WBC 25.3 H RBC 4.48 Hgb 12.4 Hct 37.3 MCV 83 MCH 27.7 MCHC 33.2 RDW Std Deviation 48.8 H Plt Count 461 H Neut % (Auto) 81 H Lymph % (Auto) 5 L [place] % (Auto) 10 Eos % (Auto) 1 Baso % (Auto) 0 Neut # (Auto) 20.6 H Lymph # (Auto) 1.3 [place] # (Auto) 2.6 H Eos # (Auto) 0.3 Baso # (Auto) 0.1 Immature Gran # (Auto) 0.41 H Absolute Nucleated RBC 0.00 Immature Gran % 2 H Nucleated RBC % 0 Sodium 135 L Potassium 4.0 D Chloride 94 L Carbon Dioxide 31.9 H Anion Gap 9 BUN 20 Creatinine 1.0 Estim Creat Clear Calc 56.7 L eGFR 58 L BUN/Creatinine Ratio 20 Glucose 68 L Calculated Osmolality 270 L Calcium 8.2 L Corrected Calcium 9.0 Phosphorus 3.0 Magnesium 2.2 Total Bilirubin 4.1 H D AST 186 H ALT 97 H Alkaline Phosphatase 280 H D Total Protein 6.7 Albumin 3.0 L Globulin 3.7 H Albumin/Globulin Ratio 0.8 L Quality Measures Quality Measures none Advance care planning discussed with:: patient Assessment & Plan Assessment Current Active Medications: Generic Name Dose Route Start Last Admin Trade Name Freq PRN Reason Stop Dose Admin Acetaminophen 650 mg 07/23/24 15:30 07/25/24 10:26 Acetaminophen 325 Mg Tablet PO 08/22/24 15:29 650 mg Q6H PRN Administration PAIN OR FEVER > 100.4 Protocol Hydrocodone Bitart/Acetaminophen 1 tab 07/29/24 04:46 07/31/24 05:28 Hydrocodone/Apap 5/325 Tablet PO 08/03/24 04:45 1 tab Q6HR PRN Administration PAIN SCALE 7-10 (Severe Albuterol/Ipratropium 3 ml 07/27/24 13:32 07/29/24 09:21 Albuterol/Ipratropium (Duoneb) Rt Lauren 3 Ml Nebu INH 08/24/24 08:44 3 ml Q4HRRT PRN Administration wheezing, shortness of breath Amiodarone HCl 200 mg 07/31/24 21:00 Amiodarone Hcl 200 Mg Tablet PO 08/30/24 20:59 BID GHADA Buspirone HCl 15 mg 07/24/24 10:57 07/30/24 13:25 Buspirone Hcl 5 Mg Tablet PO 08/23/24 10:56 15 mg TID PRN Administration Anxiety Duloxetine HCl 60 mg 07/24/24 21:00 07/31/24 08:50 Duloxetine Hcl 30 Mg Capsule PO 08/23/24 20:59 60 mg BID GHADA Administration Furosemide 40 mg 07/27/24 13:45 07/31/24 08:51 Furosemide 40 Mg Tablet PO 08/26/24 13:44 40 mg BID GHADA Administration Gabapentin 100 mg 07/28/24 09:00 07/31/24 05:28 Gabapentin 100 Mg Capsule PO 08/27/24 08:59 100 mg TID GHADA Administration Vancomycin/Sodium Chloride 200 mls @ 120 mls/hr 07/30/24 10:00 07/31/24 09:14 Vancomycin/Ns 1 Gm Ivpb IV 08/06/24 09:59 120 mls/hr Q12H GHADA Administration Protocol Piperacillin/Tazobactam/Dextrose 3.375 gm in 50 mls @ 12.5 mls/hr 07/30/24 14:00 07/31/24 05:28 Zosyn IV 08/03/24 13:59 12.5 mls/hr Q8HR GHADA Administration Protocol Melatonin 3 mg 07/31/24 21:00 Melatonin 3 Mg Tablet PO 08/30/24 20:59 HS GHADA Methimazole 5 mg 07/23/24 09:00 07/31/24 08:51 Methimazole 5 Mg Tablet PO 08/22/24 08:59 5 mg DAILY GHADA Administration Morphine Sulfate 30 mg 07/31/24 09:00 07/31/24 08:51 Morphine Sulf 15 Mg Tabcr PO 08/05/24 08:59 30 mg QDAY GHADA Administration Protocol Morphine Sulfate 30 mg 07/30/24 21:00 07/30/24 20:20 Morphine Sulf 15 Mg Tabcr PO 08/04/24 20:59 30 mg QPM GHADA Administration Protocol Ondansetron HCl 4 mg 07/23/24 15:34 07/23/24 16:49 Ondansetron Inj 2 Mg/Ml Inj 2 Ml IV 08/22/24 15:33 4 mg Q6H PRN Administration NAUSEA OR VOMITING Protocol Pantoprazole Sodium 40 mg 07/24/24 09:00 07/31/24 08:50 Pantoprazole 40 Mg Tablet PO 08/23/24 08:59 40 mg QDAY GHADA Administration Pharmacy Consult 1 each 07/28/24 09:41 Vancomycin Pharmacy To Dose 1 Each Each IV 08/27/24 09:40 QDAY PRN CONSULT Rivaroxaban 20 mg 07/25/24 17:30 07/29/24 17:52 Rivaroxaban 10 Mg Tablet PO 08/24/24 17:29 20 mg WSUPPER GHADA Administration Spironolactone 25 mg 07/25/24 09:00 07/31/24 08:50 Spironolactone 25 Mg Tablet PO 08/24/24 08:59 25 mg QDAY GHADA Administration Ursodiol 300 mg 07/27/24 12:00 07/31/24 11:11 Ursodiol 300 Mg Capsule PO 08/26/24 11:59 300 mg QID GHADA Administration Plan Nneka Burciaga is a 74-year-old female with a past medical history of COPD on 2 L home oxygen, HFpEF (55-60% on 11/2023), a-fib on Xarelto, hypertension, and chronic pain who presented to the ED on 07/22 status-post multiple ground-level falls at home and found to have enlarged CBD on imaging, admitted for further work-up. #Enlarged CBD #History of cholecystectomy #? Choledocolithiasis #Transaminitis #Hyperbilirubinemia No fever, chills, nausea, vomiting, abdominal pain, change in bowel habits. On admission: WBC 25, ESR 86, CRP 12, procal 5.2, AST 134, ALT 54, alk phos 137, T. bili 2.3. Gallbladder ultrasound: Enlarged CBD 1.2 cm. MRCP: Extrahepatic biliary tract dilatation with abrupt termination at distal CBD. HIDA scan showed a large common hepatic and CBD, although contrast in the small bowel. Spoke to flux plant operator, Dr. 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 CT abdomen pelvis showed bilateral pneumonia with small bilateral pleural effusions. Continues to show extrahepatic biliary tract dilatation. ? GI consulted, appreciate recommendations ? Transfer process initiated in order to obtain ERCP with [facility], however most facilities have declined and now on hold ? Patient will be n.p.o. after midnight on Monday for ERCP on ? Zosyn 3.375 g IV q6h (07/27-) ? Ursodiol 300 mg p.o. q6h #Urinary tract infection UA showed turbid urine, 2+ blood, 23 RBC, WBC 966, 3+ bacteria, hyaline casts present. Zosyn (07/23-07/25), ceftriaxone (07/25-07/27) ? Urine culture: Klebsiella pneumonia ? Zosyn 3.375 g IV q6h (07/27-) #Acute kidney injury, prerenal vs intrarenal, resolved May be due to dehydration vs rhabdomyolysis ? Avoid nephrotoxic agents, renally dose medications ? Encourage increased p.o. intake #Rhabdomyolysis, improving Found down at home after fall, may have been for a couple of hours per history. Initial CK 3500, will continue to trend. ? Received 3 L IVF per sepsis protocol and an additional 1 L afterwards ? Encourage increased p.o. intake #HFpEF (EF 55-60% on 11/2023) Follows-up with Dr. Browning outpatient. Not in exacerbation and not overloaded at this time. BNP 395. ? Cardiology consulted, appreciate recommendations ? Follow-up echo ? Carvedilol 3.125 mg p.o. BIDWM -> HELD ? Spironolactone 25 mg p.o. daily ? Resumed lasix at 40 mg p.o. BID ? Strict I's and O's, daily weights, low sodium diet, fliud restriction (2 L/day) #Atrial fibrillation, on Xarelto and amiodarone On 07/24, Heart rate noted to be in the 40s and 50s with associated drowsiness, EKG showed sinus bradycardia with first-degree AV block Per cardio recommendations, will decrease amiodarone to 200 mg daily and discontinue Coreg May consider increasing her amiodarone back to her home dose of 200 mg twice daily ? Amiodarone 200 mg p.o. BID ? Holding Xarelto for ERCP #COPD on 2 L home O2 Does not have any inhalers at home per son. ? Duonebs scheduled #History of hypertension ? Carvedilol as above #Chronic pain ? Gabapentin 100 mg p.o. 3 times daily ? Duloxetine 60 mg p.o. twice daily ? Morphine sulfate 15 mg p.o. in AM and 30 mg in PM ? [place] 5 q6h prn Hospital management: Disposition: N.p.o. after midnight, ERCP tomorrow Diet: cardiac, low sodium, n.p.o. after midnight Lines: PIV DVT prophylaxis: SCDs GI prophylaxis: pantoprazole 40 mg po daily CODE STATUS: DNR/DNI ----- Plan discussed with attending physician Dr. Cecilia Smith MD PGY-1 Internal Medicine Attending Provider Attestation/Addendum I attest that I was physically present for the evaluation, physical examination, lab and imaging review of the patient with the residents. I discussed the case with the residents and agree with the findings and plans of care as documented above. At bedside today, patient states he is feeling okay and denies any new complaints. Continues to have her chronic pain. Pulse noticed to be higher in the morning, we will change her amiodarone dosing back to 200 mg twice daily. Rest of the vitals are within normal limits, saturating well on 5 to 6 L nasal cannula. Lab results show increasing WBC from 24.7-25.3 today, also noted to have worsening liver function, total bilirubin from 3.6-4.1, AST/ALT 186/97 and ALP 280 today. Xarelto has been on hold, patient is planned for ERCP with GI tomorrow. Unique Brooks MD
--- NOTE | 2024-07-31 14:23 | ESPR_ITS ---
<Statement entered by Jason Browning MD - 08/01/24 13:03> Evaluate the patient examined appears be doing clinically quite well from cardiac point of view no evidence of A-fib RVR or bradycardia patient stable to have ERCP possibly scheduled tomorrow evaluate the patient with resident physician PGY 3 evaluate the patient with her and we will keep monitor the patient for any arrhythmias. Documentation for date of: 07/31/24 Subjective Subjective Interval history: Patient was examined bedside this morning, and no acute overnight event. The heart rate is in between 90s. She is having ERCP tomorrow. Xarelto on hold Exam Vital Signs Temp Pulse Resp BP Pulse Ox O2 Del Method O2 Flow Rate 97.6 F 109 H 18 106/57 L 91 L Room Air 6 07/31/24 12:00 07/31/24 12:00 07/31/24 12:00 07/31/24 12:00 07/31/24 12:00 07/31/24 12:00 07/31/24 07:49 Narrative Exam GENERAL: Adul female seen resting in hospital bed, on 5L ofo2 , complaining of generalized body ache. HEENT: Normocephalic, atraumatic. Pupils are equal and reactive. Oral mucosa is moist. NECK: Supple, nontender, no JVD CHEST: Symmetrical, atraumatic and with equal expansion ,Nontender on palpation CARDIOVASCULAR: S1/S2. no murmur or gallop rub or extra beats. LUNGS: Bilateral wheezing heard ABDOMEN: Soft, flat, nontender to palpation, no guarding or rebound tenderness. Active and normal bowel sounds. EXTREMITIES:Moves all 4 extremities,No B/L LE edema. SKIN: Warm and dry, no jaundice or rashes noted. NEURO: Patient is AO x 3, Cranial nerves II through XII grossly intact. There is no focal neurologic deficits noted. PSYCHIATRIC: Patient is in normal mood, cooperative, no SI or HI or hallucinations. Objective Labs 07/31/24 07:20 07/31/24 07:20 Labs: Laboratory Results - last 24 hr 07/31/24 07:20 WBC 25.3 H RBC 4.48 Hgb 12.4 Hct 37.3 MCV 83 MCH 27.7 MCHC 33.2 RDW Std Deviation 48.8 H Plt Count 461 H Neut % (Auto) 81 H Lymph % (Auto) 5 L Mayes % (Auto) 10 Eos % (Auto) 1 Baso % (Auto) 0 Neut # (Auto) 20.6 H Lymph # (Auto) 1.3 Mayes # (Auto) 2.6 H Eos # (Auto) 0.3 Baso # (Auto) 0.1 Immature Gran # (Auto) 0.41 H Absolute Nucleated RBC 0.00 Immature Gran % 2 H Nucleated RBC % 0 Sodium 135 L Potassium 4.0 D Chloride 94 L Carbon Dioxide 31.9 H Anion Gap 9 BUN 20 Creatinine 1.0 Estim Creat Clear Calc 56.7 L eGFR 58 L BUN/Creatinine Ratio 20 Glucose 68 L Calculated Osmolality 270 L Calcium 8.2 L Corrected Calcium 9.0 Phosphorus 3.0 Magnesium 2.2 Total Bilirubin 4.1 H D AST 186 H ALT 97 H Alkaline Phosphatase 280 H D Total Protein 6.7 Albumin 3.0 L Globulin 3.7 H Albumin/Globulin Ratio 0.8 L Quality Measures Quality Measures none Advance care planning discussed with:: patient Assessment & Plan Assessment Current Active Medications: Generic Name Dose Route Start Last Admin Trade Name Freq PRN Reason Stop Dose Admin Acetaminophen 650 mg 07/23/24 15:30 07/25/24 10:26 Acetaminophen 325 Mg Tablet PO 08/22/24 15:29 650 mg Q6H PRN Administration PAIN OR FEVER > 100.4 Protocol Hydrocodone Bitart/Acetaminophen 1 tab 07/29/24 04:46 07/31/24 05:28 Hydrocodone/Apap 5/325 Tablet PO 08/03/24 04:45 1 tab Q6HR PRN Administration PAIN SCALE 7-10 (Severe Albuterol/Ipratropium 3 ml 07/27/24 13:32 07/29/24 09:21 Albuterol/Ipratropium (Duoneb) Rt Lauren 3 Ml Nebu INH 08/24/24 08:44 3 ml Q4HRRT PRN Administration wheezing, shortness of breath Amiodarone HCl 200 mg 07/31/24 21:00 Amiodarone Hcl 200 Mg Tablet PO 08/30/24 20:59 BID GHADA Buspirone HCl 15 mg 07/24/24 10:57 07/30/24 13:25 Buspirone Hcl 5 Mg Tablet PO 08/23/24 10:56 15 mg TID PRN Administration Anxiety Duloxetine HCl 60 mg 07/24/24 21:00 07/31/24 08:50 Duloxetine Hcl 30 Mg Capsule PO 08/23/24 20:59 60 mg BID GHADA Administration Furosemide 40 mg 07/27/24 13:45 07/31/24 08:51 Furosemide 40 Mg Tablet PO 08/26/24 13:44 40 mg BID GHADA Administration Gabapentin 100 mg 07/28/24 09:00 07/31/24 13:54 Gabapentin 100 Mg Capsule PO 08/27/24 08:59 100 mg TID GHADA Administration Vancomycin/Sodium Chloride 200 mls @ 120 mls/hr 07/30/24 10:00 07/31/24 09:14 Vancomycin/Ns 1 Gm Ivpb IV 08/06/24 09:59 120 mls/hr Q12H GHADA Administration Protocol Piperacillin/Tazobactam/Dextrose 3.375 gm in 50 mls @ 12.5 mls/hr 07/30/24 14:00 07/31/24 13:53 Zosyn IV 08/03/24 13:59 12.5 mls/hr Q8HR GHADA Administration Protocol Melatonin 3 mg 07/31/24 21:00 Melatonin 3 Mg Tablet PO 08/30/24 20:59 HS GHADA Methimazole 5 mg 07/23/24 09:00 07/31/24 08:51 Methimazole 5 Mg Tablet PO 08/22/24 08:59 5 mg DAILY GHADA Administration Morphine Sulfate 30 mg 07/31/24 09:00 07/31/24 08:51 Morphine Sulf 15 Mg Tabcr PO 08/05/24 08:59 30 mg QDAY GHADA Administration Protocol Morphine Sulfate 30 mg 07/30/24 21:00 07/30/24 20:20 Morphine Sulf 15 Mg Tabcr PO 08/04/24 20:59 30 mg QPM GHADA Administration Protocol Ondansetron HCl 4 mg 07/23/24 15:34 07/23/24 16:49 Ondansetron Inj 2 Mg/Ml Inj 2 Ml IV 08/22/24 15:33 4 mg Q6H PRN Administration NAUSEA OR VOMITING Protocol Pantoprazole Sodium 40 mg 07/24/24 09:00 07/31/24 08:50 Pantoprazole 40 Mg Tablet PO 08/23/24 08:59 40 mg QDAY GHADA Administration Pharmacy Consult 1 each 07/28/24 09:41 Vancomycin Pharmacy To Dose 1 Each Each IV 08/27/24 09:40 QDAY PRN CONSULT Rivaroxaban 20 mg 07/25/24 17:30 07/29/24 17:52 Rivaroxaban 10 Mg Tablet PO 08/24/24 17:29 20 mg WSUPPER GHADA Administration Spironolactone 25 mg 07/25/24 09:00 07/31/24 08:50 Spironolactone 25 Mg Tablet PO 08/24/24 08:59 25 mg QDAY GHADA Administration Ursodiol 300 mg 07/27/24 12:00 07/31/24 11:11 Ursodiol 300 Mg Capsule PO 08/26/24 11:59 300 mg QID GHADA Administration Plan 74-year-old female with past medical history of COPD on 2L home o2 , CHF last echo on 2020 showed ejection fraction of 50 to 55%, A-fib on anticoagulation xarelto chronic back pain, hypertension came to the ED with chief complaint of fall. In the ED ultrasound showed CBD 1.27 cm MRCP was done which showed abnormal Abnormal extra hepatic biliary tract dilatation with abrupt termination of the distal common bile duct, differential would include malignant neoplasm at the ampulla. Cervical CT was negative for any fracture, head CT was negative for any fracture, his CT was negative for any fracture, lumbar thoracic spine CT?negative for any fracture. Initial vitals BP?115/57, P?60, RR?18, temperature?98. labs-WBC?24.9, hemoglobin?11.6, HCT?35.8,ESR- 86, na-133,cr-1.6 , total bilirubin?2.3, AST?134, ALT?54, alk phos?137, total creatinine 3532, troponin negative, CRP 12.4, BNP 395. Dr. Carrillo is planning to do ERCP. Cardiology consulted for management of fluids in the setting of rhabdo. #HFpEF 55-60%. -BNP -395 -Echo- (11/20/2023) Normal LV size and function. .Diastolic function present but cannot grade due to AFib. Estimated EF 55-60%, Normal RV size and function. Mild TR. Trace MR. -home meds coreg ,spironalactone, Lasix. -patient received 2L of fluid in ED for Sepsis and Rhabdo , currently on 125 ml/hr of NS , continue the maintainance fluid as she is not heart failure with reduced EF . and currently not on heart failure . 07/24/24: bed side her HR was in between 47-55 , she was drowsy . EKG showed sinus abel with first degree AV block , will decrease Amio to 200 Q day and discontinue coreg. He CK has decreased . pending Dr Carrillo reccs for ERCP. 07/25/2024: her heart rate is currently in 80s , continue to hold coreg . she is complaining of generalized pain in her body , primary team has decreased the dose of her morphine. 07/26/24: she is pending transfer for ERCP with [facility] as per Dr. Carrillo if she is not able to transfer by Monday then he will do ERCP in the hospital. Earlier her heart rate was in 50s they held the amiodarone and her heart rate went up to 100 so amiodarone Q day was given. 07/27/2024: Patient developed new onset bilateral lower extremity swelling and would be benefit from resuming her home Lasix in addition to her spironolactone. Plan:- continue holding coreg.- resume home Lasix. 07/29/2024:Continue Lasix and amiodarone for now. Pending ERCP by Dr. Carrillo 07/30/2024: she was scheduled to do ERCP today , which is scheduled on , hold xarelto prior to procedure. 07/31/2024: no acute overnight event. The heart rate is in between 90s. She is having ERCP tomorrow. Xarelto on hold #A-fib. - chadsvac score- 5 -she is amiodarone 200 bid -coreg- 6.25 bid - on xarelto -07/24/24: will DC coreg for now in setting of bradycardia and change amio to Q day . -07/25/24: continue amio 200 q day. -07/26/24: continue amio 200 q day. Plan: - Continue amiodarone 200 mg QD and Xarelto(on hold ) Management of other problems as per primary team. Case discussed with my attending Dr Browning. Safia Alanis MD,PGY-3
--- NOTE | 2024-07-31 14:37 | PC.SS ---
Rounding note: ERCP planned for tomorrow. Patient to d/c to [facility] at the time of discharge.
[2024-07-31] MEDS: MELATONIN 3 MG TABLET PO (21:06)
--- NOTE | 2024-07-31 22:55 | PC.NURSE ---
vanco trough result pending.
[2024-07-31 23:07] LABS: Vancomycin,Trough 22.1 mcg/mL (5.0-10.0)
[2024-08-01] VITALS (19 sets, daily range): BP systolic 99–152; BP diastolic 61–116; PULSE 68–109; RESP 16–181; TEMP 36.1–36.8; O2SAT 89–98
[2024-08-01] MEDS: PIPER/TAZO 3.375 GM PREMIX 3.375 GM/50 ML BAG IV ×3 (05:33→21:19)
[2024-08-01 05:51] LABS: Basophils # (Auto) 0.1 Thou/mm3 (0.0-0.2); Basophils % (Auto) 0 % (0-2.5); Eosinophils # (Auto) 0.2 Thou/mm3 (0.0-0.5); Eosinophils % (Auto) 1 % (0-10); Hematocrit 32.8 % (36.0-46.0); Hemoglobin 11.2 g/dL (12.0-16.0); Immature Granulocytes % (Auto) 2 % (0-0); Lymphocytes # (Auto) 1.2 Thou/mm3 (1.0-4.8); Lymphocytes % (Auto) 5 % (10-50); Mean Corpuscular HGB Conc 34.1 g/dl (31.0-37.0); Mean Corpuscular Hemoglobin 28.3 pg (25.0-35.0); Mean Corpuscular Volume 83 fL (80-100); Monocytes # (Auto) 2.4 Thou/mm3 (0.0-0.8); Monocytes % (Auto) 9 % (0-12); Neutrophils # (Auto) 22.7 Thou/mm3 (1.8-7.7); Neutrophils % (Auto) 84 % (37-80); Nucleated Red Blood Cell % 0 /100 WBC (0); Platelet Count 426 Thou/mm3 (140-440); RDW Standard Deviation 49.3 fL (36.4-46.3); Red Blood Count 3.96 Miln/mm3 (4.00-5.20); White Blood Count 27.1 Thou/mm3 (3.6-11.0)
[2024-08-01 06:30] LABS: Alanine Aminotransferase 84 U/L (10-49); Albumin, Serum 2.6 gm/dL (3.4-4.8); Albumin/Globulin Ratio 0.7 (1.2-2.2); Alkaline Phosphatase 253 U/L (46-116); Anion Gap 10 (7-16); Aspartate Amino Transferase 160 U/L (0-34); BUN/Creatinine Ratio 17 Ratio (12-20); Bilirubin,Total 3.6 mg/dL (0.3-1.2); Blood Urea Nitrogen 17 mg/dL (9-23); Calcium 8.4 mg/dL (8.3-10.6); Calcium (Corrected) 9.5 mg/dL (8.5-10.1); Carbon Dioxide 30.2 mMol/L (20.0-31.0); Chloride 92 mMol/L (98-107); Estimated Creatinine Clearance 56.7 mL/min (>60); Globulin 3.5 gm/dL (2.3-3.5); Glucose 70 mg/dL (74-106); Magnesium 2.1 mg/dL (1.6-2.6); Osmolality,Calculated 264 (275-295); Phosphorous 3.5 mg/dL (2.4-5.1); Sodium 132 mMol/L (136-145); Total Protein 6.1 gm/dL (5.7-8.2); eGFR 58 See Note
[2024-08-01] MEDS: RINGERS LACTATED 1000 ML 1,000 ML 125 ML IV (07:58)
--- NOTE | 2024-08-01 08:20 | XR_ITS ---
Examination: ERCP 30 spot fluoroscopic abdomen films Fluoroscopy August 01, 2024 0925 hours INDICATIONS: MRCP July 23, 2024 abnormal extra hepatic biliary tract dilatation with abrupt termination of the distal common bile duct, abdominal pain this month TECHNIQUE AND FINDINGS: 30 spot fluoroscopic films of the abdomen demonstrate intra and Hepatobiliary tract dilatation Balloon sweeping of the common hepatic common bile duct Stent placement on the final films in satisfactory position Fluoroscopy 32 seconds 30 spot fluoroscopic films radiation dose 11.175 milligray IMPRESSION: ERCP as above
[2024-08-01] MEDS: INDOMETHACIN 50 MG SUPP 100 MG PR (08:32)
[2024-08-01] MEDS: ALBUTEROL RT 2.5 MG/3 ML NEBU INH (09:13)
--- NOTE | 2024-08-01 09:22 | ESPR_ITS ---
Documentation for date of: 08/01/24 Subjective Subjective Interval history: No acute overnight events. Seen and examined at bedside after undergoing ERCP and patient appears sleepy, likely secondary to anesthesia from procedure but does states she is in some pain that appears to be chronic. Per operative report, upper third of the main bile duct markedly dilated secondary to stricture with largest being 15 mm in diameter; middle third of the main bile duct contained a single moderate stenosis. Biliary sphincterotomy made without post seen throughout any bleeding, and 1 stent 1 internal flap placed in CBD. Will resume xarelto tomorrow (08/02) and will need repeat ERCP with [facility] to examine CBD and with possible biopsy. Exam Vital Signs Temp Pulse Resp BP Pulse Ox O2 Del Method O2 Flow Rate 97.2 F 103 H 19 99/74 94 L Room Air 5 08/01/24 08:00 08/01/24 09:13 08/01/24 08:00 08/01/24 08:00 08/01/24 08:00 08/01/24 08:00 08/01/24 07:45 Narrative Exam General: fatigued, mild distress from pain post ERCP HEENT: NC/AT, mucous membranes moist, bilateral sclera anicteric Cardiovascular: tachycardic, regular rhythm, S1/S2 present, no murmurs appreciated Pulmonary: clear to auscultation bilatearlly, no rales/rhonchi Abdominal: obese soft, non-tender, non-distended, no rebound/guarding, normal bowel sounds present Musculoskeletal: normal ROM, no peripheral edema Skin: chronic venous stasis changes, warm and dry, intact, no rashes Neuro: CN II-XII intact, no focal deficits Objective Labs 08/01/24 04:41 08/01/24 04:41 Labs: Laboratory Results - last 24 hr 07/31/24 08/01/24 21:15 04:41 WBC 27.1 H RBC 3.96 L Hgb 11.2 L Hct 32.8 L MCV 83 MCH 28.3 MCHC 34.1 RDW Std Deviation 49.3 H Plt Count 426 D Neut % (Auto) 84 H Lymph % (Auto) 5 L Baldwin % (Auto) 9 Eos % (Auto) 1 Baso % (Auto) 0 Neut # (Auto) 22.7 H Lymph # (Auto) 1.2 Baldwin # (Auto) 2.4 H Eos # (Auto) 0.2 Baso # (Auto) 0.1 Immature Gran # (Auto) 0.50 H Absolute Nucleated RBC 0.00 Immature Gran % 2 H Nucleated RBC % 0 Sodium 132 L Potassium 4.0 Chloride 92 L Carbon Dioxide 30.2 Anion Gap 10 BUN 17 Creatinine 1.0 Estim Creat Clear Calc 56.7 L eGFR 58 L BUN/Creatinine Ratio 17 Glucose 70 L Calculated Osmolality 264 L Calcium 8.4 Corrected Calcium 9.5 Phosphorus 3.5 Magnesium 2.1 Total Bilirubin 3.6 H D AST 160 H ALT 84 H Alkaline Phosphatase 253 H D Total Protein 6.1 Albumin 2.6 L Globulin 3.5 Albumin/Globulin Ratio 0.7 L Vancomycin Trough 22.1 H* Quality Measures Quality Measures none Advance care planning discussed with:: patient Assessment & Plan Assessment Current Active Medications: Generic Name Dose Route Start Last Admin Trade Name Freq PRN Reason Stop Dose Admin Acetaminophen 650 mg 07/23/24 15:30 07/25/24 10:26 Acetaminophen 325 Mg Tablet PO 08/22/24 15:29 650 mg Q6H PRN Administration PAIN OR FEVER > 100.4 Protocol Hydrocodone Bitart/Acetaminophen 1 tab 07/29/24 04:46 07/31/24 05:28 Hydrocodone/Apap 5/325 Tablet PO 08/03/24 04:45 1 tab Q6HR PRN Administration PAIN SCALE 7-10 (Severe Albuterol/Ipratropium 3 ml 07/27/24 13:32 07/29/24 09:21 Albuterol/Ipratropium (Duoneb) Rt Lauren 3 Ml Nebu INH 08/24/24 08:44 3 ml Q4HRRT PRN Administration wheezing, shortness of breath Amiodarone HCl 200 mg 07/31/24 21:00 07/31/24 21:05 Amiodarone Hcl 200 Mg Tablet PO 08/30/24 20:59 200 mg BID GHADA Administration Buspirone HCl 15 mg 07/24/24 10:57 07/30/24 13:25 Buspirone Hcl 5 Mg Tablet PO 08/23/24 10:56 15 mg TID PRN Administration Anxiety Duloxetine HCl 60 mg 07/24/24 21:00 07/31/24 21:06 Duloxetine Hcl 30 Mg Capsule PO 08/23/24 20:59 60 mg BID GHADA Administration Fentanyl Citrate 50 mcg 08/01/24 08:42 Fentanyl Cit Inj 50 Mcg/Ml Amp 2ml IVP 08/01/24 10:42 Q5MIN PRN PAIN SCALE 4-10(Mod-Sev Furosemide 40 mg 07/27/24 13:45 07/31/24 21:06 Furosemide 40 Mg Tablet PO 08/26/24 13:44 40 mg BID GHADA Administration Gabapentin 100 mg 07/28/24 09:00 08/01/24 05:29 Gabapentin 100 Mg Capsule PO 08/27/24 08:59 Not Given TID GHADA Hydralazine HCl 5 mg 08/01/24 08:42 Hydralazine Inj 20 Mg/Ml Vial IV 08/01/24 10:42 Q20MIN PRN SEE COMMENTS Vancomycin/Sodium Chloride 200 mls @ 120 mls/hr 07/30/24 10:00 07/31/24 23:17 Vancomycin/Ns 1 Gm Ivpb IV 08/06/24 09:59 Not Given Q12H GHADA Protocol Piperacillin/Tazobactam/Dextrose 3.375 gm in 50 mls @ 12.5 mls/hr 07/30/24 14:00 08/01/24 05:33 Zosyn IV 08/03/24 13:59 12.5 mls/hr Q8HR GHADA Administration Protocol Lactated Ringer's 1,000 mls @ 125 mls/hr 08/01/24 07:58 08/01/24 07:58 Lactated Ringers IV 08/01/24 15:57 125 mls/hr .Q8H ONE Administration Lactated Ringer's 1,000 mls @ 250 mls/hr 08/01/24 09:12 Lactated Ringers IV 08/01/24 13:11 .Q4H ONE Melatonin 3 mg 07/31/24 21:00 07/31/24 21:06 Melatonin 3 Mg Tablet PO 08/30/24 20:59 3 mg HS GHADA Administration Methimazole 5 mg 07/23/24 09:00 07/31/24 08:51 Methimazole 5 Mg Tablet PO 08/22/24 08:59 5 mg DAILY GHADA Administration Metoprolol Tartrate 1 mg 08/01/24 08:42 Metoprolol Tartrate Inj 1 Mg/Ml Amp 5 Ml IVP 08/01/24 10:42 Q5MIN PRN TACHYCARDIA Morphine Sulfate 30 mg 07/31/24 09:00 07/31/24 08:51 Morphine Sulf 15 Mg Tabcr PO 08/05/24 08:59 30 mg QDAY GHADA Administration Protocol Morphine Sulfate 30 mg 07/30/24 21:00 07/31/24 21:05 Morphine Sulf 15 Mg Tabcr PO 08/04/24 20:59 30 mg QPM GHADA Administration Protocol Ondansetron HCl 4 mg 07/23/24 15:34 07/23/24 16:49 Ondansetron Inj 2 Mg/Ml Inj 2 Ml IV 08/22/24 15:33 4 mg Q6H PRN Administration NAUSEA OR VOMITING Protocol Pantoprazole Sodium 40 mg 07/24/24 09:00 07/31/24 08:50 Pantoprazole 40 Mg Tablet PO 08/23/24 08:59 40 mg QDAY GHADA Administration Pharmacy Consult 1 each 07/28/24 09:41 Vancomycin Pharmacy To Dose 1 Each Each IV 08/27/24 09:40 QDAY PRN CONSULT Rivaroxaban 20 mg 07/25/24 17:30 07/29/24 17:52 Rivaroxaban 10 Mg Tablet PO 08/24/24 17:29 20 mg WSUPPER GHADA Administration Spironolactone 25 mg 07/25/24 09:00 07/31/24 08:50 Spironolactone 25 Mg Tablet PO 08/24/24 08:59 25 mg QDAY GHADA Administration Ursodiol 300 mg 07/27/24 12:00 08/01/24 05:29 Ursodiol 300 Mg Capsule PO 08/26/24 11:59 Not Given QID GHADA Plan Nneka Burciaga is a 74-year-old female with a past medical history of COPD on 2 L home oxygen, HFpEF (55-60% on 11/2023), a-fib on Xarelto, hypertension, and chronic pain who presented to the ED on 07/22 status-post multiple ground-level falls at home and found to have enlarged CBD on imaging, admitted for further work-up. #Enlarged CBD #History of cholecystectomy #? Choledocolithiasis #Transaminitis #Hyperbilirubinemia No fever, chills, nausea, vomiting, abdominal pain, change in bowel habits. Gallbladder ultrasound: Enlarged CBD 1.2 cm. MRCP: Extrahepatic biliary tract dilatation with abrupt termination at distal CBD. HIDA scan showed a large common hepatic and CBD, although contrast in small bowel. Spoke to corporate librarian, Dr. 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 Transfer process initiated, however most facilities have declined and now on hold. ERCP 08/01: upper third of main bile duct markedly dilated secondary to stricture and middle third of main bile duct contained single moderate stenosis; biliary sphincterotomy made and 1 stent 1 internal flap placed in CBD ? GI consulted, appreciate recommendations ? Will resume xarelto tomorrow (08/02) ? Will need repeat ERCP with [facility] to examine CBD and with possible biopsy ? Zosyn 3.375 g IV q6h (07/27-) ? Ursodiol 300 mg p.o. q6h #Urinary tract infection UA showed turbid urine, 2+ blood, 23 RBC, WBC 966, 3+ bacteria, hyaline casts present. Zosyn (07/23-07/25), ceftriaxone (07/25-07/27) ? Urine culture: Klebsiella pneumonia ? Zosyn 3.375 g IV q6h (07/27-) #Acute kidney injury, prerenal vs intrarenal, resolved May be due to dehydration vs rhabdomyolysis ? Avoid nephrotoxic agents, renally dose medications ? Encourage increased p.o. intake #Rhabdomyolysis, improving Found down at home after fall, may have been for a couple of hours per history. Initial CK 3500, will continue to trend. ? Received 3 L IVF per sepsis protocol and an additional 1 L afterwards ? Encourage increased p.o. intake #HFpEF (EF 55-60% on 11/2023) Follows-up with Dr. Browning outpatient. Not in exacerbation and not overloaded at this time. BNP 395. ? Cardiology consulted, appreciate recommendations ? Follow-up echo ? Carvedilol 3.125 mg p.o. BIDWM -> HELD ? Spironolactone 25 mg p.o. daily ? Resumed lasix at 40 mg p.o. BID ? Strict I's and O's, daily weights, low sodium diet, fliud restriction (2 L/day) #Atrial fibrillation, on Xarelto and amiodarone On 07/24, Heart rate noted to be in the 40s and 50s with associated drowsiness, EKG showed sinus bradycardia with first-degree AV block Per cardio recommendations, will decrease amiodarone to 200 mg daily and discontinue Coreg May consider increasing her amiodarone back to her home dose of 200 mg twice daily ? Amiodarone 200 mg p.o. BID ? Holding Xarelto for ERCP, will resume on 08/02 #COPD on 2 L home O2 Does not have any inhalers at home per son. ? Duonebs scheduled #History of hypertension ? Carvedilol as above #Chronic pain ? Gabapentin 100 mg p.o. 3 times daily ? Duloxetine 60 mg p.o. twice daily ? Morphine sulfate 30 mg p.o. BID ? [place] 5 q6h prn Hospital management: Disposition: status-post ERCP, anticipate discharge within next 24-48 hours Diet: clear liquid diet, advance as tolerated Lines: PIV DVT prophylaxis: SCDs GI prophylaxis: pantoprazole 40 mg po daily CODE STATUS: DNR/DNI ----- Plan discussed with attending physician Dr. Cecilia Smith MD PGY-1 Internal Medicine Attending Provider Attestation/Addendum I attest that I was physically present for the evaluation, physical examination, lab and imaging review of the patient with the residents. I discussed the case with the residents and agree with the findings and plans of care as documented above. Patient underwent ERCP today with GI, was found to have single moderate biliary stricture in the middle third of the main bile duct, malignant appearing, biliary sphincterectomy was done and plastic stent was placed in CBD. Vital signs are stable except for mild tachycardia, WBC count went to 27.1 this morning compared to 25.3 yesterday. Lab results show mild hyponatremia and hypochloremia. Liver function slightly improved with bilirubin 3.6 compared to 4.1 yesterday. We will resume and advance her diet, plan to resume Xarelto tomorrow. Plan to discussed with gastroenterology tomorrow for possible discharge. Unique Brooks MD
--- NOTE | 2024-08-01 10:00 | SUR.PHASEI ---
0906: pt drowsy but responds to voice, breathing unlabored, report from Haja RIDER and Dr Durant 0948: pt tolerating ice chips without difficulty swallowing or n/v 0950: report called to Carlos Enrique RIDER 1000: pt transferred to room at this time.
[2024-08-01] MEDS: SPIRONOLACTONE 25 MG TABLET PO (10:37)
[2024-08-01] MEDS: AMIODARONE HCL 200 MG TABLET PO ×2 (10:37→21:18)
[2024-08-01] MEDS: Furosemide 40 MG TABLET PO ×2 (10:38→21:18)
[2024-08-01] MEDS: Morphine Sulf 15 MG TABCR 30 MG PO ×2 (10:38→21:17)
[2024-08-01] MEDS: METHIMAZOLE 5 MG TABLET PO (10:38)
[2024-08-01] MEDS: DULoxetine HCL 30 MG CAPSULE 60 MG PO ×2 (10:38→21:17)
[2024-08-01] MEDS: PANTOPRAZOLE 40 MG TABLET PO (10:38)
--- NOTE | 2024-08-01 11:58 | ESPR_ITS ---
<Statement entered by Jason Browning MD - 08/02/24 08:59> The patient evaluated postprocedure patient underwent successful ERCP with no complications remains sinus rhythm evaluated the patient with PGY 3 . agree with the treatment plan recommendation as documented Documentation for date of: 08/01/24 Subjective Subjective Interval history: Patient unserwent ERCP today, sitting comfortably in bed. no acute overnight events Exam Vital Signs Temp Pulse Resp BP Pulse Ox O2 Del Method O2 Flow Rate 97.4 F 105 H 17 145/91 H 92 L Room Air 4 08/01/24 09:51 08/01/24 10:38 08/01/24 09:51 08/01/24 10:38 08/01/24 09:51 08/01/24 08:00 08/01/24 09:51 Narrative Exam GENERAL: Adul female seen resting in hospital bed, on 5L ofo2 , complaining of pain oost ERCP HEENT: Normocephalic, atraumatic. Pupils are equal and reactive. Oral mucosa is moist. NECK: Supple, nontender, no JVD CHEST: Symmetrical, atraumatic and with equal expansion ,Nontender on palpation CARDIOVASCULAR: S1/S2. no murmur or gallop rub or extra beats. LUNGS: Bilateral wheezing heard ABDOMEN: Soft, flat, nontender to palpation, no guarding or rebound tenderness. Active and normal bowel sounds. EXTREMITIES:Moves all 4 extremities,No B/L LE edema. SKIN: Warm and dry, no jaundice or rashes noted. NEURO: Patient is AO x 3, Cranial nerves II through XII grossly intact. There is no focal neurologic deficits noted. PSYCHIATRIC: Patient is in normal mood, cooperative, no SI or HI or hallucinations. Objective Labs 08/01/24 04:41 08/01/24 04:41 Labs: Laboratory Results - last 24 hr 07/31/24 08/01/24 21:15 04:41 WBC 27.1 H RBC 3.96 L Hgb 11.2 L Hct 32.8 L MCV 83 MCH 28.3 MCHC 34.1 RDW Std Deviation 49.3 H Plt Count 426 D Neut % (Auto) 84 H Lymph % (Auto) 5 L [place] % (Auto) 9 Eos % (Auto) 1 Baso % (Auto) 0 Neut # (Auto) 22.7 H Lymph # (Auto) 1.2 [place] # (Auto) 2.4 H Eos # (Auto) 0.2 Baso # (Auto) 0.1 Immature Gran # (Auto) 0.50 H Absolute Nucleated RBC 0.00 Immature Gran % 2 H Nucleated RBC % 0 Sodium 132 L Potassium 4.0 Chloride 92 L Carbon Dioxide 30.2 Anion Gap 10 BUN 17 Creatinine 1.0 Estim Creat Clear Calc 56.7 L eGFR 58 L BUN/Creatinine Ratio 17 Glucose 70 L Calculated Osmolality 264 L Calcium 8.4 Corrected Calcium 9.5 Phosphorus 3.5 Magnesium 2.1 Total Bilirubin 3.6 H D AST 160 H ALT 84 H Alkaline Phosphatase 253 H D Total Protein 6.1 Albumin 2.6 L Globulin 3.5 Albumin/Globulin Ratio 0.7 L Vancomycin Trough 22.1 H* Quality Measures Quality Measures none Advance care planning discussed with:: patient Assessment & Plan Assessment Current Active Medications: Generic Name Dose Route Start Last Admin Trade Name Freq PRN Reason Stop Dose Admin Acetaminophen 650 mg 07/23/24 15:30 07/25/24 10:26 Acetaminophen 325 Mg Tablet PO 08/22/24 15:29 650 mg Q6H PRN Administration PAIN OR FEVER > 100.4 Protocol Hydrocodone Bitart/Acetaminophen 1 tab 07/29/24 04:46 07/31/24 05:28 Hydrocodone/Apap 5/325 Tablet PO 08/03/24 04:45 1 tab Q6HR PRN Administration PAIN SCALE 7-10 (Severe Albuterol/Ipratropium 3 ml 07/27/24 13:32 07/29/24 09:21 Albuterol/Ipratropium (Duoneb) Rt Lauren 3 Ml Nebu INH 08/24/24 08:44 3 ml Q4HRRT PRN Administration wheezing, shortness of breath Amiodarone HCl 200 mg 07/31/24 21:00 08/01/24 10:37 Amiodarone Hcl 200 Mg Tablet PO 08/30/24 20:59 200 mg BID GHADA Administration Buspirone HCl 15 mg 07/24/24 10:57 07/30/24 13:25 Buspirone Hcl 5 Mg Tablet PO 08/23/24 10:56 15 mg TID PRN Administration Anxiety Duloxetine HCl 60 mg 07/24/24 21:00 08/01/24 10:38 Duloxetine Hcl 30 Mg Capsule PO 08/23/24 20:59 60 mg BID GHADA Administration Furosemide 40 mg 07/27/24 13:45 08/01/24 10:38 Furosemide 40 Mg Tablet PO 08/26/24 13:44 40 mg BID GHADA Administration Gabapentin 100 mg 07/28/24 09:00 08/01/24 05:29 Gabapentin 100 Mg Capsule PO 08/27/24 08:59 Not Given TID GHADA Vancomycin/Sodium Chloride 200 mls @ 120 mls/hr 07/30/24 10:00 07/31/24 23:17 Vancomycin/Ns 1 Gm Ivpb IV 08/06/24 09:59 Not Given Q12H GHADA Protocol Piperacillin/Tazobactam/Dextrose 3.375 gm in 50 mls @ 12.5 mls/hr 07/30/24 14:00 08/01/24 09:34 Zosyn IV 08/03/24 13:59 12.5 mls/hr Q8HR GHADA Administration Protocol Lactated Ringer's 1,000 mls @ 125 mls/hr 08/01/24 07:58 08/01/24 07:58 Lactated Ringers IV 08/01/24 15:57 125 mls/hr .Q8H ONE Administration Lactated Ringer's 1,000 mls @ 250 mls/hr 08/01/24 09:12 Lactated Ringers IV 08/01/24 13:11 .Q4H ONE Melatonin 3 mg 07/31/24 21:00 07/31/24 21:06 Melatonin 3 Mg Tablet PO 08/30/24 20:59 3 mg HS GHADA Administration Methimazole 5 mg 07/23/24 09:00 08/01/24 10:38 Methimazole 5 Mg Tablet PO 08/22/24 08:59 5 mg DAILY GHADA Administration Morphine Sulfate 30 mg 07/31/24 09:00 08/01/24 10:38 Morphine Sulf 15 Mg Tabcr PO 08/05/24 08:59 30 mg QDAY GHADA Administration Protocol Morphine Sulfate 30 mg 07/30/24 21:00 07/31/24 21:05 Morphine Sulf 15 Mg Tabcr PO 08/04/24 20:59 30 mg QPM GHADA Administration Protocol Ondansetron HCl 4 mg 07/23/24 15:34 07/23/24 16:49 Ondansetron Inj 2 Mg/Ml Inj 2 Ml IV 08/22/24 15:33 4 mg Q6H PRN Administration NAUSEA OR VOMITING Protocol Pantoprazole Sodium 40 mg 07/24/24 09:00 08/01/24 10:38 Pantoprazole 40 Mg Tablet PO 08/23/24 08:59 40 mg QDAY GHADA Administration Pharmacy Consult 1 each 07/28/24 09:41 Vancomycin Pharmacy To Dose 1 Each Each IV 08/27/24 09:40 QDAY PRN CONSULT Rivaroxaban 20 mg 07/25/24 17:30 07/29/24 17:52 Rivaroxaban 10 Mg Tablet PO 08/24/24 17:29 20 mg WSUPPER GHADA Administration Spironolactone 25 mg 07/25/24 09:00 08/01/24 10:37 Spironolactone 25 Mg Tablet PO 08/24/24 08:59 25 mg QDAY GHADA Administration Ursodiol 300 mg 07/27/24 12:00 08/01/24 05:29 Ursodiol 300 Mg Capsule PO 08/26/24 11:59 Not Given QID GHADA Plan 74-year-old female with past medical history of COPD on 2L home o2 , CHF last echo on 2020 showed ejection fraction of 50 to 55%, A-fib on anticoagulation xarelto chronic back pain, hypertension came to the ED with chief complaint of fall. In the ED ultrasound showed CBD 1.27 cm MRCP was done which showed abnormal Abnormal extra hepatic biliary tract dilatation with abrupt termination of the distal common bile duct, differential would include malignant neoplasm at the ampulla. Cervical CT was negative for any fracture, head CT was negative for any fracture, his CT was negative for any fracture, lumbar thoracic spine CT?negative for any fracture. Initial vitals BP?115/57, P?60, RR?18, temperature?98. labs-WBC?24.9, hemoglobin?11.6, HCT?35.8,ESR- 86, na-133,cr-1.6 , total bilirubin?2.3, AST?134, ALT?54, alk phos?137, total creatinine 3532, troponin negative, CRP 12.4, BNP 395. Dr. Carrillo is planning to do ERCP. Cardiology consulted for management of fluids in the setting of rhabdo. #HFpEF 55-60%. -BNP -395 -Echo- (11/20/2023) Normal LV size and function. .Diastolic function present but cannot grade due to AFib. Estimated EF 55-60%, Normal RV size and function. Mild TR. Trace MR. -home meds coreg ,spironalactone, Lasix. -patient received 2L of fluid in ED for Sepsis and Rhabdo , currently on 125 ml/hr of NS , continue the maintainance fluid as she is not heart failure with reduced EF . and currently not on heart failure . 07/24/24: bed side her HR was in between 47-55 , she was drowsy . EKG showed sinus abel with first degree AV block , will decrease Amio to 200 Q day and discontinue coreg. He CK has decreased . pending Dr Carrillo reccs for ERCP. 07/25/2024: her heart rate is currently in 80s , continue to hold coreg . she is complaining of generalized pain in her body , primary team has decreased the dose of her morphine. 07/26/24: she is pending transfer for ERCP with spyglass as per Dr. Carrillo if she is not able to transfer by Monday then he will do ERCP in the hospital. Earlier her heart rate was in 50s they held the amiodarone and her heart rate went up to 100 so amiodarone Q day was given. 07/27/2024: Patient developed new onset bilateral lower extremity swelling and would be benefit from resuming her home Lasix in addition to her spironolactone. Plan:- continue holding coreg.- resume home Lasix. 07/29/2024:Continue Lasix and amiodarone for now. Pending ERCP by Dr. Carrillo 07/30/2024: she was scheduled to do ERCP today , which is scheduled on , hold xarelto prior to procedure. 07/31/2024: no acute overnight event. The heart rate is in between 90s. She is having ERCP tomorrow. Xarelto on hold 08/01/2024: ERCP done today , can resume xarelto tmorrow. #A-fib. - chadsvac score- 5 -she is amiodarone 200 bid -coreg- 6.25 bid - on xarelto -07/24/24: will DC coreg for now in setting of bradycardia and change amio to Q day . -07/25/24: continue amio 200 q day. -07/26/24: continue amio 200 q day. Plan: - Continue amiodarone 200 mg QD and Xarelto(on hold can resume tomorrow ) Management of other problems as per primary team. Case discussed with my attending Dr Browning. Safia Alanis MD,PGY-3
--- NOTE | 2024-08-01 12:16 | ESPR_ITS ---
Documentation for date of: 08/01/24 Subjective Subjective Interval history: Patient was seen and examined following the ERCP. Patient does not complain of any abdominal pain. Patient complains of fatigue and some pain in her both hands. No nausea no vomiting no other associated symptoms Exam Vital Signs Temp Pulse Resp BP Pulse Ox O2 Del Method O2 Flow Rate 97.7 F 92 18 130/74 91 L Room Air 4 08/01/24 11:59 08/01/24 11:59 08/01/24 11:59 08/01/24 11:59 08/01/24 11:59 08/01/24 08:00 08/01/24 09:51 Routine Abdominal Exam Comments: Abdominal exam benign no tenderness no sign of peritonitis. Objective Labs 08/01/24 04:41 08/01/24 04:41 Labs: Laboratory Results - last 24 hr 07/31/24 08/01/24 21:15 04:41 WBC 27.1 H RBC 3.96 L Hgb 11.2 L Hct 32.8 L MCV 83 MCH 28.3 MCHC 34.1 RDW Std Deviation 49.3 H Plt Count 426 D Neut % (Auto) 84 H Lymph % (Auto) 5 L [place] % (Auto) 9 Eos % (Auto) 1 Baso % (Auto) 0 Neut # (Auto) 22.7 H Lymph # (Auto) 1.2 [place] # (Auto) 2.4 H Eos # (Auto) 0.2 Baso # (Auto) 0.1 Immature Gran # (Auto) 0.50 H Absolute Nucleated RBC 0.00 Immature Gran % 2 H Nucleated RBC % 0 Sodium 132 L Potassium 4.0 Chloride 92 L Carbon Dioxide 30.2 Anion Gap 10 BUN 17 Creatinine 1.0 Estim Creat Clear Calc 56.7 L eGFR 58 L BUN/Creatinine Ratio 17 Glucose 70 L Calculated Osmolality 264 L Calcium 8.4 Corrected Calcium 9.5 Phosphorus 3.5 Magnesium 2.1 Total Bilirubin 3.6 H D AST 160 H ALT 84 H Alkaline Phosphatase 253 H D Total Protein 6.1 Albumin 2.6 L Globulin 3.5 Albumin/Globulin Ratio 0.7 L Vancomycin Trough 22.1 H* Assessment & Plan A&P Narrative 74-year-old female with past medical history of COPD on 2L home o2 , CHF last echo on 2020 showed ejection fraction of 50 to 55%, A-fib on anticoagulation xarelto s/p ultrasound showed CBD 1.27 cm MRCP was done which showed abnormal Abnormal extra hepatic biliary tract dilatation with abrupt termination of the distal common bile duct Impression: Enlarged common hepatic common bile duct although contrast is present in small bowel Consider ERCP and biopsies follow-up to exclude malignant stricture at the ampulla Bili normal Resume Xarelto tomorrow Check LFT tomorrow There is no indication to check lipase Patient does need ERCP with spyglass to examine the common bile duct and possible site of the stricture at the mid common bile duct Check CA 19-9 Call GI with any questions Time Spent With Patient Time: Total time spent is greater than 50% in coordination of care (as documented) at patient's floor/unit and/or counseling patient:
[2024-08-01] MEDS: RINGERS LACTATED 1000 ML 1,000 ML 250 ML IV (12:42)
[2024-08-01] MEDS: ursodioL 300 MG CAPSULE PO ×3 (13:01→21:18)
[2024-08-01] MEDS: GABAPENTIN 100 MG CAPSULE PO ×2 (13:02→21:18)
--- NOTE | 2024-08-01 14:17 | PC.CC ---
Informed by Dr. Smith that ERCP has been completed by Dr. Carrillo today and pt will possibly discharge to home tomorrow. Clarification received from Dr. Smith and Dr. Brooks that patient no longer requires a transfer for OC.
[2024-08-01] MEDS: HYDROcodone/APAP 5/325 TABLET 1 TAB PO (17:56)
[2024-08-01] MEDS: MELATONIN 3 MG TABLET PO (21:18)
[2024-08-02] VITALS (12 sets, daily range): BP systolic 112–148; BP diastolic 56–87; PULSE 75–96; RESP 15–23; TEMP 36.1–37.2; O2SAT 90–93; BMI 39.7
[2024-08-02] MEDS: ursodioL 300 MG CAPSULE PO ×4 (05:26→21:53)
[2024-08-02 05:29] LABS: Basophils # (Auto) 0.1 Thou/mm3 (0.0-0.2); Basophils % (Auto) 0 % (0-2.5); Eosinophils % (Auto) 0 % (0-10); Hematocrit 33.4 % (36.0-46.0); Hemoglobin 11.3 g/dL (12.0-16.0); Immature Granulocytes % (Auto) 2 % (0-0); Immature Granulocytes Auto 0.59 Thou/mm3 (0.00-0.00); Lymphocytes # (Auto) 0.7 Thou/mm3 (1.0-4.8); Lymphocytes % (Auto) 2 % (10-50); Mean Corpuscular HGB Conc 33.8 g/dl (31.0-37.0); Mean Corpuscular Hemoglobin 28.4 pg (25.0-35.0); Mean Corpuscular Volume 84 fL (80-100); Monocytes # (Auto) 2.3 Thou/mm3 (0.0-0.8); Monocytes % (Auto) 6 % (0-12); Neutrophils # (Auto) 35.5 Thou/mm3 (1.8-7.7); Neutrophils % (Auto) 91 % (37-80); Nucleated Red Blood Cell % 0 /100 WBC (0); Platelet Count 406 Thou/mm3 (140-440); RDW Standard Deviation 49.1 fL (36.4-46.3); Red Blood Count 3.98 Miln/mm3 (4.00-5.20)
[2024-08-02] MEDS: GABAPENTIN 100 MG CAPSULE PO ×3 (05:30→21:53)
[2024-08-02] MEDS: PIPER/TAZO 3.375 GM PREMIX 3.375 GM/50 ML BAG IV ×3 (05:30→21:55)
[2024-08-02 05:38] LABS: White Blood Count 39.1 Thou/mm3 (3.6-11.0)
[2024-08-02 05:48] LABS: Path Review Blood Smear Sent to Pathologist
[2024-08-02 06:15] LABS: Alanine Aminotransferase 86 U/L (10-49); Albumin, Serum 2.7 gm/dL (3.4-4.8); Albumin/Globulin Ratio 0.8 (1.2-2.2); Alkaline Phosphatase 280 U/L (46-116); Anion Gap 7 (7-16); Aspartate Amino Transferase 141 U/L (0-34); BUN/Creatinine Ratio 25 Ratio (12-20); Bilirubin,Total 3.3 mg/dL (0.3-1.2); Blood Urea Nitrogen 27 mg/dL (9-23); Calcium 8.4 mg/dL (8.3-10.6); Calcium (Corrected) 9.4 mg/dL (8.5-10.1); Carbon Dioxide 31.6 mMol/L (20.0-31.0); Chloride 95 mMol/L (98-107); Creatinine (Component) 1.1 mg/dL (0.6-1.3); Estimated Creatinine Clearance 51.6 mL/min (>60); Globulin 3.6 gm/dL (2.3-3.5); Glucose 114 mg/dL (74-106); Magnesium 2.1 mg/dL (1.6-2.6); Osmolality,Calculated 274 (275-295); Phosphorous 3.9 mg/dL (2.4-5.1); Potassium 4.4 mMol/L (3.4-5.1); Sodium 134 mMol/L (136-145); Total Protein 6.3 gm/dL (5.7-8.2); eGFR 52 See Note
[2024-08-02 06:59] LABS: CA 19-9 Antigen* 18 U/mL (<34)
[2024-08-02] MEDS: Furosemide 40 MG TABLET PO ×2 (08:16→21:53)
[2024-08-02] MEDS: DULoxetine HCL 30 MG CAPSULE 60 MG PO ×2 (08:16→21:53)
[2024-08-02] MEDS: SPIRONOLACTONE 25 MG TABLET PO (08:17)
[2024-08-02] MEDS: PANTOPRAZOLE 40 MG TABLET PO (08:17)
[2024-08-02] MEDS: Morphine Sulf 15 MG TABCR 30 MG PO ×2 (08:17→21:52)
[2024-08-02] MEDS: AMIODARONE HCL 200 MG TABLET PO ×2 (08:18→21:53)
[2024-08-02] MEDS: METHIMAZOLE 5 MG TABLET PO (08:18)
[2024-08-02 09:03] LABS: Lipase 56 U/L (12-53)
--- NOTE | 2024-08-02 09:08 | PC.SS ---
Addendum entered by GEMMA Faust 08/02/24 14:50: Rounding note: pending Dr. Carrillo recommendations. D/c plan is [facility]. Addendum entered by GEMMA Faust 08/02/24 10:28: Update: per bedside RN Elan, patient white blood count has elevated. Patient pending chest x-ray. Original Note: SS follow up: PASRR sent to [facility] via fileexchange. Updated clinicals also sent to SN[facility] via [employer].
[2024-08-02] MEDS: POLYETHYLENE GLYCOL 17 GM PACKET PO (09:56)
[2024-08-02] MEDS: VANCOMYCIN/D5W 1,250 MG IVPB 250 ML 120 MG IV (09:57)
--- NOTE | 2024-08-02 10:05 | XR_ITS ---
Examination: AP chest single view Technique one AP portable upright chest single view Date and time: August 02, 2024 1018 hours Comparison 11/13/2023 INDICATIONS: Worsening leukocytosis. FINDINGS: Mild enlargement cardiac contour with vascular congestion Bilateral lung opacity consider pneumonia and/or pulmonary edema Prominent osteopenia IMPRESSION: Interval significant bilateral lung opacity, consider pulmonary edema and/or pneumonia
[2024-08-02 11:15] LABS: C-Reactive Protein 6.8 mg/dL (0.0-0.9)
--- NOTE | 2024-08-02 11:38 | PD.RESPRO ---
Documentation for date of: 08/02/24 Subjective Subjective Interval history: No acute events. Seen and examined at bedside patient states that she has chronic pain but no abdominal pain, fevers, chills, nausea, vomiting. Currently on 4 L nasal cannula saturating 93%, no fevers overnight. Labs showed increase in WBC from 27 to 39 and hemoglobin stable status post ERCP. T. bili downtrending from 3.6 to 3.3, AST downtrending from 160 to 141, ALT stable at 86, alk phos increased from 250 to 280. Obtained CRP that was elevated at 6.8, lipase only mildly elevated at 56. Touch base with Dr. Carrillo and recommended to obtain liver panel, CT A/P, and HIDA scan. Repeat CXR showed interval development of bilateral lung opacities, could be due to fluid received from procedure in setting of heart failure and/or pneumonia. Also ordered UA and blood cultures. Exam Vital Signs Temp Pulse Resp BP Pulse Ox O2 Del Method O2 Flow Rate 98.9 F 93 16 148/87 H 93 L Nasal Cannula 4 08/02/24 08:00 08/02/24 08:18 08/02/24 08:00 08/02/24 08:18 08/02/24 08:00 08/02/24 08:00 08/02/24 08:00 Narrative Exam General: A&Ox3, mild distress from pain HEENT: dry mucous membranes, NC/AT, bilateral sclera anicteric Cardiovascular: regular rate and rhythm, S1/S2 present, no murmurs appreciated Pulmonary: bibasilar crackles appreciated, no rales/rhonchi Abdominal: obese soft, non-tender, non-distended, no rebound/guarding, normal bowel sounds present Musculoskeletal: normal ROM, no peripheral edema Skin: chronic venous stasis changes, warm and dry, intact, no rashes Neuro: CN II-XII intact, no focal deficits Objective Labs 08/03/24 05:04 08/03/24 05:04 Labs: Laboratory Results - last 24 hr 07/30/24 08/02/24 08/02/24 09:25 05:01 10:25 WBC 39.1 H* D RBC 3.98 L Hgb 11.3 L Hct 33.4 L MCV 84 MCH 28.4 MCHC 33.8 RDW Std Deviation 49.1 H Plt Count 406 Neut % (Auto) 91 H Lymph % (Auto) 2 L [place] % (Auto) 6 Eos % (Auto) 0 Baso % (Auto) 0 Neut # (Auto) 35.5 H Lymph # (Auto) 0.7 L [place] # (Auto) 2.3 H Eos # (Auto) 0.0 Baso # (Auto) 0.1 Immature Gran # (Auto) 0.59 H Absolute Nucleated RBC 0.00 Immature Gran % 2 H Nucleated RBC % 0 Smear Path Review Sent to Pathologist Sodium 134 L Potassium 4.4 Chloride 95 L Carbon Dioxide 31.6 H Anion Gap 7 BUN 27 H Creatinine 1.1 Estim Creat Clear Calc 51.6 L eGFR 52 L BUN/Creatinine Ratio 25 H Glucose 114 H D Calculated Osmolality 274 L Calcium 8.4 Corrected Calcium 9.4 Phosphorus 3.9 Magnesium 2.1 Total Bilirubin 3.3 H AST 141 H ALT 86 H Alkaline Phosphatase 280 H D C-Reactive Prot, Quant 6.8 H Total Protein 6.3 Albumin 2.7 L Globulin 3.6 H Albumin/Globulin Ratio 0.8 L Lipase 56 H CA 19-9 Antigen 18 Random Vancomycin 9.0 Quality Measures Quality Measures none Advance care planning discussed with:: patient and child Assessment & Plan Assessment Current Active Medications: Generic Name Dose Route Start Last Admin Trade Name Freq PRN Reason Stop Dose Admin Acetaminophen 650 mg 07/23/24 15:30 07/25/24 10:26 Acetaminophen 325 Mg Tablet PO 08/22/24 15:29 650 mg Q6H PRN Administration PAIN OR FEVER > 100.4 Protocol Hydrocodone Bitart/Acetaminophen 1 tab 07/29/24 04:46 08/01/24 17:56 Hydrocodone/Apap 5/325 Tablet PO 08/03/24 04:45 1 tab Q6HR PRN Administration PAIN SCALE 7-10 (Severe Albuterol/Ipratropium 3 ml 07/27/24 13:32 07/29/24 09:21 Albuterol/Ipratropium (Duoneb) Rt Lauren 3 Ml Nebu INH 08/24/24 08:44 3 ml Q4HRRT PRN Administration wheezing, shortness of breath Amiodarone HCl 200 mg 07/31/24 21:00 08/02/24 08:18 Amiodarone Hcl 200 Mg Tablet PO 08/30/24 20:59 200 mg BID GHADA Administration Buspirone HCl 15 mg 07/24/24 10:57 07/30/24 13:25 Buspirone Hcl 5 Mg Tablet PO 08/23/24 10:56 15 mg TID PRN Administration Anxiety Duloxetine HCl 60 mg 07/24/24 21:00 08/02/24 08:16 Duloxetine Hcl 30 Mg Capsule PO 08/23/24 20:59 60 mg BID GHADA Administration Furosemide 40 mg 07/27/24 13:45 08/02/24 08:16 Furosemide 40 Mg Tablet PO 08/26/24 13:44 40 mg BID GHADA Administration Gabapentin 100 mg 07/28/24 09:00 08/02/24 05:30 Gabapentin 100 Mg Capsule PO 08/27/24 08:59 100 mg TID GHADA Administration Piperacillin/Tazobactam/Dextrose 3.375 gm in 50 mls @ 12.5 mls/hr 07/30/24 14:00 08/02/24 05:30 Zosyn IV 08/03/24 13:59 12.5 mls/hr Q8HR GHADA Administration Protocol Vancomycin HCl/Dextrose 250 mls @ 120 mls/hr 08/02/24 10:00 08/02/24 09:57 Vancomycin/D5w 1,250 Mg Ivpb IV 08/09/24 09:59 120 mls/hr Q24H GHADA Administration Melatonin 3 mg 07/31/24 21:00 08/01/24 21:18 Melatonin 3 Mg Tablet PO 08/30/24 20:59 3 mg HS GHADA Administration Methimazole 5 mg 07/23/24 09:00 08/02/24 08:18 Methimazole 5 Mg Tablet PO 08/22/24 08:59 5 mg DAILY GHADA Administration Morphine Sulfate 30 mg 07/31/24 09:00 08/02/24 08:17 Morphine Sulf 15 Mg Tabcr PO 08/05/24 08:59 30 mg QDAY GHADA Administration Protocol Morphine Sulfate 30 mg 07/30/24 21:00 08/01/24 21:17 Morphine Sulf 15 Mg Tabcr PO 08/04/24 20:59 30 mg QPM GHADA Administration Protocol Ondansetron HCl 4 mg 07/23/24 15:34 07/23/24 16:49 Ondansetron Inj 2 Mg/Ml Inj 2 Ml IV 08/22/24 15:33 4 mg Q6H PRN Administration NAUSEA OR VOMITING Protocol Pantoprazole Sodium 40 mg 07/24/24 09:00 08/02/24 08:17 Pantoprazole 40 Mg Tablet PO 08/23/24 08:59 40 mg QDAY GHADA Administration Pharmacy Consult 1 each 07/28/24 09:41 Vancomycin Pharmacy To Dose 1 Each Each IV 08/27/24 09:40 QDAY PRN CONSULT Rivaroxaban 20 mg 07/25/24 17:30 07/29/24 17:52 Rivaroxaban 10 Mg Tablet PO 08/24/24 17:29 20 mg WSUPPER GHADA Administration Spironolactone 25 mg 07/25/24 09:00 08/02/24 08:17 Spironolactone 25 Mg Tablet PO 08/24/24 08:59 25 mg QDAY GHADA Administration Ursodiol 300 mg 07/27/24 12:00 08/02/24 05:26 Ursodiol 300 Mg Capsule PO 08/26/24 11:59 300 mg QID GHADA Administration Plan Nneka Burciaga is a 74-year-old female with a past medical history of COPD on 2 L home oxygen, HFpEF (55-60% on 11/2023), a-fib on Xarelto, hypertension, and chronic pain who presented to the ED on 07/22 status-post multiple ground-level falls at home and found to have enlarged CBD on imaging, admitted for further work-up. #Enlarged CBD #History of cholecystectomy #Transaminitis #Hyperbilirubinemia #Biliary stricture s/p stent No fever, chills, nausea, vomiting, abdominal pain, change in bowel habits. Gallbladder ultrasound: Enlarged CBD 1.2 cm. MRCP: Extrahepatic biliary tract dilatation with abrupt termination at distal CBD. HIDA scan showed a large common hepatic and CBD, although contrast in small bowel. Spoke to airplane pilot commercial, Dr. 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 Transfer process initiated, however most facilities have declined and now on hold. ERCP 08/01: upper third of main bile duct markedly dilated secondary to stricture and middle third of main bile duct contained single moderate stenosis; biliary sphincterotomy made and 1 stent 1 internal flap placed in CBD ? GI consulted, appreciate recommendations ? Given elevation in WBC, ordered liver panel, CT A/P, and HIDA scan ? Follow-up repeat blood culture and urinalysis ? Will need repeat ERCP with Spyglass to examine CBD and with possible biopsy ? Zosyn 3.375 g IV q6h (07/27-) and vancomycin (07/28-) ? Ursodiol 300 mg p.o. q6h #Urinary tract infection UA showed turbid urine, 2+ blood, 23 RBC, WBC 966, 3+ bacteria, hyaline casts present. Zosyn (07/23-07/25), ceftriaxone (07/25-07/27) ? Urine culture: Klebsiella pneumonia ? Zosyn 3.375 g IV q6h (07/27-) #Acute kidney injury, prerenal vs intrarenal, resolved May be due to dehydration vs rhabdomyolysis ? Avoid nephrotoxic agents, renally dose medications ? Encourage increased p.o. intake #Rhabdomyolysis, improving Found down at home after fall, may have been for a couple of hours per history. Initial CK 3500, will continue to trend. ? Received 3 L IVF per sepsis protocol and an additional 1 L afterwards ? Encourage increased p.o. intake #HFpEF (EF 55-60% on 11/2023) Follows-up with Dr. Browning outpatient. Not in exacerbation and not overloaded at this time. BNP 395. Repeat CXR on 08/02 showed interval development of pulmonary edema vs pneumonia ? Cardiology consulted, appreciate recommendations ? Follow-up echo ? Carvedilol 3.125 mg p.o. BIDWM -> HELD ? Spironolactone 25 mg p.o. daily ? Resumed lasix at 40 mg p.o. BID ? Strict I's and O's, daily weights, low sodium diet, fliud restriction (2 L/day) #Atrial fibrillation, on Xarelto and amiodarone On 07/24, Heart rate noted to be in the 40s and 50s with associated drowsiness, EKG showed sinus bradycardia with first-degree AV block Per cardio recommendations, will decrease amiodarone to 200 mg daily and discontinue Coreg May consider increasing her amiodarone back to her home dose of 200 mg twice daily ? Amiodarone 200 mg p.o. BID ? Xarelto to be resumed tonight #COPD on 2 L home O2 Does not have any inhalers at home per son. ? Duonebs scheduled #History of hypertension ? Carvedilol as above #Chronic pain ? Gabapentin 100 mg p.o. 3 times daily ? Duloxetine 60 mg p.o. twice daily ? Morphine sulfate 30 mg p.o. BID ? [place] 5 q6h prn Hospital management: Disposition: status-post ERCP, pending CT A/P, HIDA scan Diet: clear liquid diet, advance as tolerated Lines: PIV DVT prophylaxis: SCDs GI prophylaxis: pantoprazole 40 mg po daily CODE STATUS: DNR/DNI ----- Plan discussed with attending physician Dr. Cecilia Smith MD PGY-1 Internal Medicine Attending Provider Attestation/Addendum I attest that I was physically present for the evaluation, physical examination, lab and imaging review of the patient with the residents. I discussed the case with the residents and agree with the findings and plans of care as documented above. Unique Brooks MD
--- NOTE | 2024-08-02 11:53 | XR_ITS ---
Examination: CT abdomen with intravenous contrast CT pelvis with intravenous contrast 2-D coronal reconstructions 2-D sagittal reconstructions Date and time of exam:August 02, 2024 1242 hours Comparison July 28, 2024 INDICATIONS: Leukocytosis today post ERCP. CTDI: vol (mGy) 14.7 DLP: (mGycm) 858 Technique: Multiple axial sections of the abdomen and pelvis have been obtained. 64 slice high-resolution scanner used. 3 mm axial sections have been obtained, post intravenous injection 60 cc [id number] 2-D sagittal, coronal reconstructions obtained. Low dose protocols were performed. One or more of the following dose reduction techniques were used; automated exposure control, adjustment of the mA and/or KV according to patient size, use of iterative reconstruction technique. Findings: Bibasilar pneumonia with small bilateral pleural effusions Pneumobilia Intrahepatic biliary tract dilatation Absent gallbladder Biliary stent satisfactory position Edema surrounding the pancreas No pseudocyst No hydronephrosis No bowel obstruction Small fat-containing umbilical hernia 12 mm Small bowel mild ileus Distended urinary bladder Atrophic partially retroverted uterus Severe osteopenia IMPRESSION: Biliary stent satisfactory position Acute pancreatitis
--- NOTE | 2024-08-02 11:54 | XR_ITS ---
Examination: Nuclear medicine hepatobiliary scan, static HIDA scan Date of exam: August 02, 2024 1518 hours Comparison July 23, 2024 INDICATIONS: Elevated total bilirubin and liver function tests including lipase, in large, dilated common bile duct on HIDA scan July 23, 2024, biliary stent on CT abdomen and pelvis study today Technique And Findings: 6.1 mCi 99m Hepatolite administered intravenously. Serial imaging obtained immediately through 60 minutes. Homogenous uptake in the liver. Common bile duct small bowel activity noted . Impression: Isotope activity in the small bowel with no enlargement of the common hepatic or common bile duct on this study
[2024-08-02 12:19] LABS: Alanine Aminotransferase 89 U/L (10-49); Albumin, Serum 2.5 gm/dL (3.4-4.8); Alkaline Phosphatase 282 U/L (46-116); Aspartate Amino Transferase 137 U/L (0-34); Bilirubin,Direct 2.1 mg/dL (0.0-0.3); Bilirubin,Total 2.9 mg/dL (0.3-1.2); Total Protein 5.9 gm/dL (5.7-8.2)
--- NOTE | 2024-08-02 12:20 | ESPR_ITS ---
<Statement entered by Jason Browning MD - 08/03/24 12:15> The patient is clinically doing well not having chest pain shortness of breath remains in sinus rhythm with no arrhythmias so far underwent ERCP successfully evaluated the patient with the resident physician and agree with the treatment plan recommendation as documented Documentation for date of: 08/02/24 Subjective Subjective Interval history: Patient was examined bedside this morning, she had ERCP done yesterday. Heart rate between 80s to 90s. Continue amiodarone her white count elevated today primary team ordered a CT scan.. Exam Vital Signs Temp Pulse Resp BP Pulse Ox O2 Del Method O2 Flow Rate 97.6 F 91 15 112/56 L 92 L Nasal Cannula 2 08/02/24 12:00 08/02/24 12:00 08/02/24 12:00 08/02/24 12:00 08/02/24 12:00 08/02/24 12:00 08/02/24 12:00 Narrative Exam GENERAL: Adul female seen resting in hospital bed, on 5L ofo2 , HEENT: Normocephalic, atraumatic. Pupils are equal and reactive. Oral mucosa is moist. NECK: Supple, nontender, no JVD CHEST: Symmetrical, atraumatic and with equal expansion ,Nontender on palpation CARDIOVASCULAR: S1/S2. no murmur or gallop rub or extra beats. LUNGS: Bilateral crackles ABDOMEN: Soft, flat, nontender to palpation, no guarding or rebound tenderness. Active and normal bowel sounds. EXTREMITIES:Moves all 4 extremities,No B/L LE edema. SKIN: Warm and dry, no jaundice or rashes noted. NEURO: Patient is AO x 3, Cranial nerves II through XII grossly intact. There is no focal neurologic deficits noted. PSYCHIATRIC: Patient is in normal mood, cooperative, no SI or HI or hallucinations. Objective Labs 08/02/24 05:01 08/02/24 05:01 Labs: Laboratory Results - last 24 hr 07/30/24 08/02/24 08/02/24 09:25 05:01 10:25 WBC 39.1 H* D RBC 3.98 L Hgb 11.3 L Hct 33.4 L MCV 84 MCH 28.4 MCHC 33.8 RDW Std Deviation 49.1 H Plt Count 406 Neut % (Auto) 91 H Lymph % (Auto) 2 L [place] % (Auto) 6 Eos % (Auto) 0 Baso % (Auto) 0 Neut # (Auto) 35.5 H Lymph # (Auto) 0.7 L [place] # (Auto) 2.3 H Eos # (Auto) 0.0 Baso # (Auto) 0.1 Immature Gran # (Auto) 0.59 H Absolute Nucleated RBC 0.00 Immature Gran % 2 H Nucleated RBC % 0 Smear Path Review Sent to Pathologist Sodium 134 L Potassium 4.4 Chloride 95 L Carbon Dioxide 31.6 H Anion Gap 7 BUN 27 H Creatinine 1.1 Estim Creat Clear Calc 51.6 L eGFR 52 L BUN/Creatinine Ratio 25 H Glucose 114 H D Calculated Osmolality 274 L Calcium 8.4 Corrected Calcium 9.4 Phosphorus 3.9 Magnesium 2.1 Total Bilirubin 3.3 H 2.9 H Direct Bilirubin 2.1 H AST 141 H 137 H ALT 86 H 89 H Alkaline Phosphatase 280 H D 282 H C-Reactive Prot, Quant 6.8 H Total Protein 6.3 5.9 Albumin 2.7 L 2.5 L Globulin 3.6 H Albumin/Globulin Ratio 0.8 L Lipase 56 H CA 19-9 Antigen 18 Random Vancomycin 9.0 Quality Measures Quality Measures none Advance care planning discussed with:: patient Assessment & Plan Assessment Current Active Medications: Generic Name Dose Route Start Last Admin Trade Name Freq PRN Reason Stop Dose Admin Acetaminophen 650 mg 07/23/24 15:30 07/25/24 10:26 Acetaminophen 325 Mg Tablet PO 08/22/24 15:29 650 mg Q6H PRN Administration PAIN OR FEVER > 100.4 Protocol Hydrocodone Bitart/Acetaminophen 1 tab 07/29/24 04:46 08/01/24 17:56 Hydrocodone/Apap 5/325 Tablet PO 08/03/24 04:45 1 tab Q6HR PRN Administration PAIN SCALE 7-10 (Severe Albuterol/Ipratropium 3 ml 07/27/24 13:32 07/29/24 09:21 Albuterol/Ipratropium (Duoneb) Rt Lauren 3 Ml Nebu INH 08/24/24 08:44 3 ml Q4HRRT PRN Administration wheezing, shortness of breath Amiodarone HCl 200 mg 07/31/24 21:00 08/02/24 08:18 Amiodarone Hcl 200 Mg Tablet PO 08/30/24 20:59 200 mg BID GHADA Administration Buspirone HCl 15 mg 07/24/24 10:57 07/30/24 13:25 Buspirone Hcl 5 Mg Tablet PO 08/23/24 10:56 15 mg TID PRN Administration Anxiety Duloxetine HCl 60 mg 07/24/24 21:00 08/02/24 08:16 Duloxetine Hcl 30 Mg Capsule PO 08/23/24 20:59 60 mg BID GHADA Administration Furosemide 40 mg 07/27/24 13:45 08/02/24 08:16 Furosemide 40 Mg Tablet PO 08/26/24 13:44 40 mg BID GHADA Administration Gabapentin 100 mg 07/28/24 09:00 08/02/24 05:30 Gabapentin 100 Mg Capsule PO 08/27/24 08:59 100 mg TID GHADA Administration Piperacillin/Tazobactam/Dextrose 3.375 gm in 50 mls @ 12.5 mls/hr 07/30/24 14:00 08/02/24 05:30 Zosyn IV 08/03/24 13:59 12.5 mls/hr Q8HR GHADA Administration Protocol Vancomycin HCl/Dextrose 250 mls @ 120 mls/hr 08/02/24 10:00 08/02/24 09:57 Vancomycin/D5w 1,250 Mg Ivpb IV 08/09/24 09:59 120 mls/hr Q24H GHADA Administration Melatonin 3 mg 07/31/24 21:00 08/01/24 21:18 Melatonin 3 Mg Tablet PO 08/30/24 20:59 3 mg HS GHADA Administration Methimazole 5 mg 07/23/24 09:00 08/02/24 08:18 Methimazole 5 Mg Tablet PO 08/22/24 08:59 5 mg DAILY GHADA Administration Morphine Sulfate 30 mg 07/31/24 09:00 08/02/24 08:17 Morphine Sulf 15 Mg Tabcr PO 08/05/24 08:59 30 mg QDAY GHADA Administration Protocol Morphine Sulfate 30 mg 07/30/24 21:00 08/01/24 21:17 Morphine Sulf 15 Mg Tabcr PO 08/04/24 20:59 30 mg QPM GHADA Administration Protocol Ondansetron HCl 4 mg 07/23/24 15:34 07/23/24 16:49 Ondansetron Inj 2 Mg/Ml Inj 2 Ml IV 08/22/24 15:33 4 mg Q6H PRN Administration NAUSEA OR VOMITING Protocol Pantoprazole Sodium 40 mg 07/24/24 09:00 08/02/24 08:17 Pantoprazole 40 Mg Tablet PO 08/23/24 08:59 40 mg QDAY GHADA Administration Pharmacy Consult 1 each 07/28/24 09:41 Vancomycin Pharmacy To Dose 1 Each Each IV 08/27/24 09:40 QDAY PRN CONSULT Rivaroxaban 20 mg 07/25/24 17:30 07/29/24 17:52 Rivaroxaban 10 Mg Tablet PO 08/24/24 17:29 20 mg WSUPPER GHADA Administration Spironolactone 25 mg 07/25/24 09:00 08/02/24 08:17 Spironolactone 25 Mg Tablet PO 08/24/24 08:59 25 mg QDAY GHADA Administration Ursodiol 300 mg 07/27/24 12:00 08/02/24 05:26 Ursodiol 300 Mg Capsule PO 08/26/24 11:59 300 mg QID GHADA Administration Plan 74-year-old female with past medical history of COPD on 2L home o2 , CHF last echo on 2020 showed ejection fraction of 50 to 55%, A-fib on anticoagulation xarelto chronic back pain, hypertension came to the ED with chief complaint of fall. In the ED ultrasound showed CBD 1.27 cm MRCP was done which showed abnormal Abnormal extra hepatic biliary tract dilatation with abrupt termination of the distal common bile duct, differential would include malignant neoplasm at the ampulla. Cervical CT was negative for any fracture, head CT was negative for any fracture, his CT was negative for any fracture, lumbar thoracic spine CT?negative for any fracture. Initial vitals BP?115/57, P?60, RR?18, temperature?98. labs-WBC?24.9, hemoglobin?11.6, HCT?35.8,ESR- 86, na-133,cr-1.6 , total bilirubin?2.3, AST?134, ALT?54, alk phos?137, total creatinine 3532, troponin negative, CRP 12.4, BNP 395. Dr. Carrillo is planning to do ERCP. Cardiology consulted for management of fluids in the setting of rhabdo. #HFpEF 55-60%. -BNP -395 -Echo- (11/20/2023) Normal LV size and function. .Diastolic function present but cannot grade due to AFib. Estimated EF 55-60%, Normal RV size and function. Mild TR. Trace MR. -home meds coreg ,spironalactone, Lasix. -patient received 2L of fluid in ED for Sepsis and Rhabdo , currently on 125 ml/hr of NS , continue the maintainance fluid as she is not heart failure with reduced EF . and currently not on heart failure . 07/24/24: bed side her HR was in between 47-55 , she was drowsy . EKG showed sinus abel with first degree AV block , will decrease Amio to 200 Q day and discontinue coreg. He CK has decreased . pending Dr Carrillo reccs for ERCP. 07/25/2024: her heart rate is currently in 80s , continue to hold coreg . she is complaining of generalized pain in her body , primary team has decreased the dose of her morphine. 07/26/24: she is pending transfer for ERCP with [facility] as per Dr. Carrillo if she is not able to transfer by Monday then he will do ERCP in the hospital. Earlier her heart rate was in 50s they held the amiodarone and her heart rate went up to 100 so amiodarone Q day was given. 07/27/2024: Patient developed new onset bilateral lower extremity swelling and would be benefit from resuming her home Lasix in addition to her spironolactone. Plan:- continue holding coreg.- resume home Lasix. 07/29/2024:Continue Lasix and amiodarone for now. Pending ERCP by Dr. Carrillo 07/30/2024: she was scheduled to do ERCP today , which is scheduled on , hold xarelto prior to procedure. 07/31/2024: no acute overnight event. The heart rate is in between 90s. She is having ERCP tomorrow. Xarelto on hold 08/01/2024: ERCP done today , can resume xarelto tmorrow. 08/02/2024: Patient was examined bedside this morning, she had ERCP done yesterday. Heart rate between 80s to 90s. Continue amiodarone her white count elevated today primary team ordered a CT scan.. #A-fib. - chadsvac score- 5 -she is amiodarone 200 bid -coreg- 6.25 bid - on xarelto -07/24/24: will DC coreg for now in setting of bradycardia and change amio to Q day . -07/25/24: continue amio 200 q day. -07/26/24: continue amio 200 q day. Plan: - Continue amiodarone 200 mg QD and Xarelto Management of other problems as per primary team. Case discussed with my attending Dr Browning. Safia Alanis MD,PGY-3
[2024-08-02] MEDS: RIVAROXABAN 10 MG TABLET 20 MG PO (17:23)
[2024-08-02] MEDS: MELATONIN 3 MG TABLET PO (21:53)
[2024-08-03] VITALS (14 sets, daily range): BP systolic 99–142; BP diastolic 61–77; PULSE 93–108; RESP 16–24; TEMP 36–37.1; O2SAT 91–95
[2024-08-03] MEDS: PIPER/TAZO 3.375 GM PREMIX 3.375 GM/50 ML BAG IV (05:26)
[2024-08-03] MEDS: ursodioL 300 MG CAPSULE PO ×4 (05:26→20:42)
[2024-08-03] MEDS: GABAPENTIN 100 MG CAPSULE PO ×3 (05:30→21:52)
[2024-08-03 06:20] LABS: Basophils # (Auto) 0.1 Thou/mm3 (0.0-0.2); Basophils % (Auto) 0 % (0-2.5); Eosinophils # (Auto) 0.1 Thou/mm3 (0.0-0.5); Eosinophils % (Auto) 0 % (0-10); Hemoglobin 11.3 g/dL (12.0-16.0); Immature Granulocytes % (Auto) 3 % (0-0); Immature Granulocytes Auto 1.19 Thou/mm3 (0.00-0.00); Lymphocytes # (Auto) 1.1 Thou/mm3 (1.0-4.8); Lymphocytes % (Auto) 3 % (10-50); Mean Corpuscular HGB Conc 34.2 g/dl (31.0-37.0); Mean Corpuscular Hemoglobin 28.5 pg (25.0-35.0); Mean Corpuscular Volume 83 fL (80-100); Monocytes # (Auto) 3.4 Thou/mm3 (0.0-0.8); Monocytes % (Auto) 8 % (0-12); Neutrophils # (Auto) 38.7 Thou/mm3 (1.8-7.7); Neutrophils % (Auto) 87 % (37-80); Nucleated Red Blood Cell % 0 /100 WBC (0); Platelet Count 402 Thou/mm3 (140-440); RDW Standard Deviation 48.4 fL (36.4-46.3); Red Blood Count 3.97 Miln/mm3 (4.00-5.20)
[2024-08-03 06:25] LABS: White Blood Count 44.6 Thou/mm3 (3.6-11.0)
[2024-08-03 06:40] LABS: Path Review Blood Smear Sent to Pathologist
[2024-08-03 06:43] LABS: Alanine Aminotransferase 87 U/L (10-49); Albumin, Serum 2.6 gm/dL (3.4-4.8); Albumin/Globulin Ratio 0.7 (1.2-2.2); Alkaline Phosphatase 279 U/L (46-116); Anion Gap 8 (7-16); Aspartate Amino Transferase 146 U/L (0-34); BUN/Creatinine Ratio 29 Ratio (12-20); Bilirubin,Total 3.2 mg/dL (0.3-1.2); Blood Urea Nitrogen 29 mg/dL (9-23); C-Reactive Protein 8.3 mg/dL (0.0-0.9); Calcium 8.5 mg/dL (8.3-10.6); Calcium (Corrected) 9.6 mg/dL (8.5-10.1); Carbon Dioxide 31.5 mMol/L (20.0-31.0); Chloride 95 mMol/L (98-107); Estimated Creatinine Clearance 56.7 mL/min (>60); Globulin 3.6 gm/dL (2.3-3.5); Glucose 69 mg/dL (74-106); Magnesium 1.9 mg/dL (1.6-2.6); Osmolality,Calculated 272 (275-295); Phosphorous 3.4 mg/dL (2.4-5.1); Potassium 4.1 mMol/L (3.4-5.1); Sodium 134 mMol/L (136-145); Total Protein 6.2 gm/dL (5.7-8.2); eGFR 58 See Note
--- NOTE | 2024-08-03 07:12 | PC.NURSE ---
MD made aware of WBC 44.6 this AM. No orders given. pt vs are stable at this time. will continue to monitor
[2024-08-03] MEDS: AMIODARONE HCL 200 MG TABLET PO ×2 (07:42→20:42)
[2024-08-03 08:06] LABS: Bilirubin,Direct 2.4 mg/dL (0.0-0.3)
[2024-08-03] MEDS: Morphine Sulf 15 MG TABCR 30 MG PO ×2 (08:25→20:42)
[2024-08-03] MEDS: LACTULOSE SYRUP 20 GM/30 ML UDC 10 GM PO ×2 (08:25→13:23)
[2024-08-03] MEDS: PANTOPRAZOLE 40 MG TABLET PO (08:26)
[2024-08-03] MEDS: METHIMAZOLE 5 MG TABLET PO (08:26)
[2024-08-03] MEDS: Furosemide 40 MG TABLET PO ×2 (08:26→21:52)
[2024-08-03] MEDS: SPIRONOLACTONE 25 MG TABLET PO (08:26)
[2024-08-03] MEDS: DULoxetine HCL 30 MG CAPSULE 60 MG PO ×2 (08:26→20:42)
[2024-08-03] MEDS: Magnesium Sulfate 2 GM Ivpb 2 GM/50 ML BAG IV (08:27)
[2024-08-03 09:29] LABS: Lipase 30 U/L (12-53)
--- NOTE | 2024-08-03 10:08 | ESPR_ITS ---
Documentation for date of: 08/03/24 Subjective Subjective Interval history: No acute overnight events. Seen and examined at bedside and patient appeared to be sleepy. States that she continues to be in her chronic pain but no abdominal pain, fevers, chills. MiraLAX did not work as stable so we will start lactulose and observe. WBC continues to uptrend from 39 to 44 with left shift. T. bili up trended from 2.9 to 3.2, AST/ALT/ALP elevated but largely have remained the same. CRP up trended from 6.8 to 8.3, Pro-Clark 0.52, lactate 1.7, lipase WNL. UA improved from admission, now clear without signs of infection blood 1+ bilirubin. Touched base with Dr. Carrillo and at this time we will continue to observe with broad-spectrum IV antibiotics, pending blood cultures. Exam Vital Signs Temp Pulse Resp BP Pulse Ox O2 Del Method O2 Flow Rate 98.0 F 107 H 18 113/65 94 L Nasal Cannula 5 08/03/24 08:00 08/03/24 08:49 08/03/24 08:49 08/03/24 08:26 08/03/24 08:49 08/03/24 08:00 08/03/24 08:49 Narrative Exam General: A&Ox3, mild distress from pain HEENT: dry mucous membranes, NC/AT, bilateral sclera anicteric Cardiovascular: regular rate and rhythm, S1/S2 present, no murmurs appreciated Pulmonary: bibasilar crackles appreciated, no rales/rhonchi Abdominal: obese soft, non-tender, non-distended, no rebound/guarding, normal bowel sounds present Musculoskeletal: normal ROM, no peripheral edema Skin: chronic venous stasis changes, warm and dry, intact, no rashes Neuro: CN II-XII intact, no focal deficits Objective Labs 08/03/24 05:04 08/03/24 05:04 Labs: Laboratory Results - last 24 hr 08/02/24 08/03/24 10:25 05:04 WBC 44.6 H* D RBC 3.97 L Hgb 11.3 L Hct 33.0 L MCV 83 MCH 28.5 MCHC 34.2 RDW Std Deviation 48.4 H Plt Count 402 Neut % (Auto) 87 H Lymph % (Auto) 3 L Saunders % (Auto) 8 Eos % (Auto) 0 Baso % (Auto) 0 Neut # (Auto) 38.7 H Lymph # (Auto) 1.1 Saunders # (Auto) 3.4 H Eos # (Auto) 0.1 Baso # (Auto) 0.1 Immature Gran # (Auto) 1.19 H Absolute Nucleated RBC 0.00 Immature Gran % 3 H Nucleated RBC % 0 Smear Path Review Sent to Pathologist Sodium 134 L Potassium 4.1 Chloride 95 L Carbon Dioxide 31.5 H Anion Gap 8 BUN 29 H Creatinine 1.0 Estim Creat Clear Calc 56.7 L eGFR 58 L BUN/Creatinine Ratio 29 H Glucose 69 L Calculated Osmolality 272 L Calcium 8.5 Corrected Calcium 9.6 Phosphorus 3.4 Magnesium 1.9 Total Bilirubin 2.9 H 3.2 H Direct Bilirubin 2.1 H 2.4 H AST 137 H 146 H ALT 89 H 87 H Alkaline Phosphatase 282 H 279 H C-Reactive Prot, Quant 6.8 H 8.3 H Total Protein 5.9 6.2 Albumin 2.5 L 2.6 L Globulin 3.6 H Albumin/Globulin Ratio 0.7 L Lipase 30 D Quality Measures Quality Measures none Advance care planning discussed with:: patient Assessment & Plan Assessment Current Active Medications: Generic Name Dose Route Start Last Admin Trade Name Freq PRN Reason Stop Dose Admin Acetaminophen 650 mg 07/23/24 15:30 07/25/24 10:26 Acetaminophen 325 Mg Tablet PO 08/22/24 15:29 650 mg Q6H PRN Administration PAIN OR FEVER > 100.4 Protocol Albuterol/Ipratropium 3 ml 07/27/24 13:32 07/29/24 09:21 Albuterol/Ipratropium (Duoneb) Rt Lauren 3 Ml Nebu INH 08/24/24 08:44 3 ml Q4HRRT PRN Administration wheezing, shortness of breath Amiodarone HCl 200 mg 07/31/24 21:00 08/03/24 07:42 Amiodarone Hcl 200 Mg Tablet PO 08/30/24 20:59 200 mg BID GHADA Administration Buspirone HCl 15 mg 07/24/24 10:57 07/30/24 13:25 Buspirone Hcl 5 Mg Tablet PO 08/23/24 10:56 15 mg TID PRN Administration Anxiety Duloxetine HCl 60 mg 07/24/24 21:00 08/03/24 08:26 Duloxetine Hcl 30 Mg Capsule PO 08/23/24 20:59 60 mg BID GHADA Administration Furosemide 40 mg 07/27/24 13:45 08/03/24 08:26 Furosemide 40 Mg Tablet PO 08/26/24 13:44 40 mg BID GHADA Administration Gabapentin 100 mg 07/28/24 09:00 08/03/24 05:30 Gabapentin 100 Mg Capsule PO 08/27/24 08:59 100 mg TID GHADA Administration Piperacillin/Tazobactam/Dextrose 3.375 gm in 50 mls @ 12.5 mls/hr 07/30/24 14:00 08/03/24 05:26 Zosyn IV 08/03/24 13:59 12.5 mls/hr Q8HR GHADA Administration Protocol Vancomycin HCl/Dextrose 250 mls @ 120 mls/hr 08/02/24 10:00 08/02/24 09:57 Vancomycin/D5w 1,250 Mg Ivpb IV 08/09/24 09:59 120 mls/hr Q24H GHADA Administration Lactulose 10 gm 08/03/24 07:30 08/03/24 08:25 Lactulose Syrup 20 Gm/30 Ml Udc PO 09/02/24 07:29 10 gm QID GHADA Administration Protocol Melatonin 3 mg 07/31/24 21:00 08/02/24 21:53 Melatonin 3 Mg Tablet PO 08/30/24 20:59 3 mg HS GHADA Administration Methimazole 5 mg 07/23/24 09:00 08/03/24 08:26 Methimazole 5 Mg Tablet PO 08/22/24 08:59 5 mg DAILY GHADA Administration Morphine Sulfate 30 mg 07/31/24 09:00 08/03/24 08:25 Morphine Sulf 15 Mg Tabcr PO 08/05/24 08:59 30 mg QDAY GHADA Administration Protocol Morphine Sulfate 30 mg 07/30/24 21:00 08/02/24 21:52 Morphine Sulf 15 Mg Tabcr PO 08/04/24 20:59 30 mg QPM GHADA Administration Protocol Ondansetron HCl 4 mg 07/23/24 15:34 07/23/24 16:49 Ondansetron Inj 2 Mg/Ml Inj 2 Ml IV 08/22/24 15:33 4 mg Q6H PRN Administration NAUSEA OR VOMITING Protocol Pantoprazole Sodium 40 mg 07/24/24 09:00 08/03/24 08:26 Pantoprazole 40 Mg Tablet PO 08/23/24 08:59 40 mg QDAY GHADA Administration Pharmacy Consult 1 each 07/28/24 09:41 Vancomycin Pharmacy To Dose 1 Each Each IV 08/27/24 09:40 QDAY PRN CONSULT Rivaroxaban 20 mg 07/25/24 17:30 08/02/24 17:23 Rivaroxaban 10 Mg Tablet PO 08/24/24 17:29 20 mg WSUPPER GHADA Administration Spironolactone 25 mg 07/25/24 09:00 08/03/24 08:26 Spironolactone 25 Mg Tablet PO 08/24/24 08:59 25 mg QDAY GHADA Administration Ursodiol 300 mg 07/27/24 12:00 08/03/24 05:26 Ursodiol 300 Mg Capsule PO 08/26/24 11:59 300 mg QID GHADA Administration Plan Nneka Burciaga is a 74-year-old female with a past medical history of COPD on 2 L home oxygen, HFpEF (55-60% on 11/2023), a-fib on Xarelto, hypertension, and chronic pain who presented to the ED on 07/22 status-post multiple ground-level falls at home and found to have enlarged CBD on imaging, admitted for further work-up. #Enlarged CBD #History of cholecystectomy #Transaminitis #Hyperbilirubinemia #Biliary stricture s/p stent No fever, chills, nausea, vomiting, abdominal pain, change in bowel habits. Gallbladder ultrasound: Enlarged CBD 1.2 cm. MRCP: Extrahepatic biliary tract dilatation with abrupt termination at distal CBD. HIDA scan showed a large common hepatic and CBD, although contrast in small bowel. ERCP 08/01: upper third of main bile duct markedly dilated secondary to stricture and middle third of main bile duct contained single moderate stenosis; biliary sphincterotomy made and 1 stent 1 internal flap placed in CBD ? GI consulted, appreciate recommendations ? Follow-up repeat blood culture ? Will need repeat ERCP with [facility] to examine CBD and with possible biopsy ? Zosyn 3.375 g IV q6h (07/27-) and vancomycin (07/28-) ? Ursodiol 300 mg p.o. q6h #Leukocytosis, reactive vs inflammatory vs infective process Repeat CT A/P showed edema around pancreas, pneumobilia, bibasilar pneumonia with small pleural effusions. Repeat HIDA scan showed isotope activity in small bowel without enlargement of common hepatic or common bile duct. Lactate wnl, procal slightly elevated at 0.52, CRP uptrended from 6.8 to 8.3. Lipase wnl. ? GI consulted as above ? ID consulted, appreciate recommendations #Urinary tract infection UA showed turbid urine, 2+ blood, 23 RBC, WBC 966, 3+ bacteria, hyaline casts present. Repeat UA showed no signs of infection but now with 1+ bilirubin. Zosyn (07/23-07/25), ceftriaxone (07/25-07/27) ? Urine culture: Klebsiella pneumonia ? Zosyn 3.375 g IV q6h (07/27-) #Acute kidney injury, prerenal vs intrarenal, resolved May be due to dehydration vs rhabdomyolysis ? Avoid nephrotoxic agents, renally dose medications ? Encourage increased p.o. intake #Rhabdomyolysis, improving Found down at home after fall, may have been for a couple of hours per history. Initial CK 3500, will continue to trend. ? Received 3 L IVF per sepsis protocol and an additional 1 L afterwards ? Encourage increased p.o. intake #HFpEF (EF 55-60% on 11/2023) Follows-up with Dr. Browning outpatient. Not in exacerbation and not overloaded at this time. BNP 395. Repeat CXR on 08/02 showed interval development of pulmonary edema vs pneumonia ? Cardiology consulted, appreciate recommendations ? Follow-up echo ? Carvedilol 3.125 mg p.o. BIDWM -> HELD ? Spironolactone 25 mg p.o. daily ? Lasix 40 mg IV BID ? Strict I's and O's, daily weights, low sodium diet, fliud restriction (2 L/day) #Atrial fibrillation, on Xarelto and amiodarone On 07/24, Heart rate noted to be in the 40s and 50s with associated drowsiness, EKG showed sinus bradycardia with first-degree AV block Per cardio recommendations, will decrease amiodarone to 200 mg daily and discontinue Coreg May consider increasing her amiodarone back to her home dose of 200 mg twice daily ? Amiodarone 200 mg p.o. BID ? Xarelto resumed #COPD on 2 L home O2 Does not have any inhalers at home per son. ? Duonebs scheduled #History of hypertension ? Carvedilol as above #Chronic pain ? Gabapentin 100 mg p.o. 3 times daily ? Duloxetine 60 mg p.o. twice daily ? Morphine sulfate 30 mg p.o. BID ? [place] 5 q6h prn Hospital management: Disposition: status-post ERCP, increasing WBC, ID and GI following Diet: high calorie/protein diet Lines: PIV DVT prophylaxis: SCDs GI prophylaxis: pantoprazole 40 mg po daily CODE STATUS: DNR/DNI ----- Plan discussed with attending physician Dr. Cecilia Smith MD PGY-1 Internal Medicine Attending Provider Attestation/Addendum I attest that I was physically present for the evaluation, physical examination, lab and imaging review of the patient with the residents. I discussed the case with the residents and agree with the findings and plans of care as documented above. At bedside today, patient states she is feeling well and does not have any new complaints. Continues to be on broad-spectrum IV antibiotics. Continues to have chronic pain in her neck. WBC continued to uptrend from 39.1 yesterday to 44.6 today, CRP also up trended to 8.3 from 6.8, repeat level level was within normal limits. Liver panel slightly worsened, UA was obtained which did not show any signs of infection. Discussed with GI, recommended close observation with follow-up CBC. We will continue with the antibiotic and closely monitor her WBC level and any source of infection. Unique Brooks MD
[2024-08-03] MEDS: VANCOMYCIN/D5W 1,250 MG IVPB 250 ML 120 MG IV (10:15)
[2024-08-03 10:57] LABS: Lactate (Lactic Acid) 1.7 mMol/L (0.4-2.0)
[2024-08-03 10:57] LABS: Procalcitonin 0.52 ng/ml (0.0-0.49)
[2024-08-03 11:27] LABS: Collection Type, Urine Clean Catch
[2024-08-03 11:46] LABS: Bilirubin,Urine 1+ (Negative); Blood,Urine Negative (Negative); Clarity,Urine Clear (Clear/Hazy); Color,Urine Yellow (Lt Yel-Yel); Culture Indicated,Urine Not Indicated; Glucose, Urine Negative (Negative); Ketones,Urine Negative (Negative); Leukocyte Esterase,Urine Negative (Negative); Nitrite,Urine Negative (Negative); PH,Urine 5.5 (5.0-7.0); Protein,Urine Negative (Neg - Trace); RBC,Urine 2 /hpf (0-3); Specific Gravity,Urine 1.034 (1.001-1.035); Squamous Epithelial Cell,Urine 1 /hpf (0-5); Urobilinogen,Urine Negative mg/dL (0.0-1.0); WBC,Urine 2 /hpf (0-5)
--- NOTE | 2024-08-03 13:49 | ESPR_ITS ---
RE: HE DELACRUZ : 1950 DATE OF SERVICE: 08/03/2024 SUBJECTIVE: The patient appears to be doing fairly well. She is a 74-year-old who has a history of paroxysmal atrial fibrillation, maintaining sinus rhythm so far, not having any chest pain or shortness of breath. Not complaining of any cardiac symptoms or limitations. The patient underwent ERCP successfully and continues with IV antibiotics. Cardiovascular lutz, she is quite stable so far, tolerating very well. Her GI impression was enlarged common hemorrhagic bile duct, still receiving IV antibiotics. Physical exam unchanged. OBJECTIVE: General: She is alert, awake and in no acute distress. Vital Signs: Heart rate is 105, blood pressure 130/65, pulse rate 80, respirations 18, and temperature normal. Neck: Supple. Lungs: Decreased breath sounds. Heart: Heart sounds S1, S2 regular. Abdomen: Soft. Extremities: No edema. LABORATORY DATA: Showed persistent white count elevation of 44,600 despite antibiotics and hemoglobin is stable at 11.3. IMPRESSION: 1. Paroxysmal atrial fibrillation, stable. 2. History of cholecystectomy, elevated transaminases and biliary stricture status post stent with persistent leukocytosis. RECOMMENDATIONS: Dr. Carrillo was planned to repeat ERCP with [facility] to examine common bile duct apparently, but the patient is receiving IV broad-spectrum antibiotics and continues to have elevated white count. She also has had some rhabdomyolysis, improving. Cardiac lutz was stable. No arrhythmia, but she is still having persistent abnormal white count and infection followed by tail sawyer. DT: 12:34:30 TT: 13:41:00 Ref: [id number] - TID: [id number]
[2024-08-03] MEDS: RIVAROXABAN 10 MG TABLET 20 MG PO (17:33)
[2024-08-03] MEDS: Milk Of Magnesia Susp 30 ML UDC PO (17:34)
[2024-08-03] MEDS: LACTULOSE SYRUP 20 GM/30 ML UDC PO ×2 (17:34→20:43)
[2024-08-04] VITALS (14 sets, daily range): BP systolic 98–124; BP diastolic 59–75; PULSE 77–111; RESP 13–24; TEMP 36.1–36.3; O2SAT 92–97
[2024-08-04] MEDS: ACETAMINOPHEN 325 MG TABLET 650 MG PO (04:10)
[2024-08-04 05:55] LABS: Basophils # (Auto) 0.1 Thou/mm3 (0.0-0.2); Basophils % (Auto) 0 % (0-2.5); Eosinophils # (Auto) 0.1 Thou/mm3 (0.0-0.5); Eosinophils % (Auto) 0 % (0-10); Hematocrit 30.8 % (36.0-46.0); Hemoglobin 10.4 g/dL (12.0-16.0); Immature Granulocytes % (Auto) 3 % (0-0); Immature Granulocytes Auto 1.11 Thou/mm3 (0.00-0.00); Lymphocytes # (Auto) 1.2 Thou/mm3 (1.0-4.8); Lymphocytes % (Auto) 3 % (10-50); Mean Corpuscular HGB Conc 33.8 g/dl (31.0-37.0); Mean Corpuscular Hemoglobin 28.3 pg (25.0-35.0); Mean Corpuscular Volume 84 fL (80-100); Monocytes % (Auto) 8 % (0-12); Neutrophils # (Auto) 32.5 Thou/mm3 (1.8-7.7); Neutrophils % (Auto) 85 % (37-80); Nucleated Red Blood Cell % 0 /100 WBC (0); Platelet Count 620 Thou/mm3 (140-440); Red Blood Count 3.68 Miln/mm3 (4.00-5.20)
[2024-08-04] MEDS: ursodioL 300 MG CAPSULE PO ×4 (06:11→21:57)
[2024-08-04] MEDS: GABAPENTIN 100 MG CAPSULE PO ×3 (06:11→21:57)
[2024-08-04] MEDS: LACTULOSE SYRUP 20 GM/30 ML UDC PO ×3 (06:11→17:08)
[2024-08-04 07:11] LABS: Alanine Aminotransferase 89 U/L (10-49); Albumin, Serum 2.7 gm/dL (3.4-4.8); Albumin/Globulin Ratio 0.7 (1.2-2.2); Alkaline Phosphatase 269 U/L (46-116); Anion Gap 8 (7-16); Aspartate Amino Transferase 144 U/L (0-34); BUN/Creatinine Ratio 28 Ratio (12-20); Bilirubin,Total 3.6 mg/dL (0.3-1.2); Blood Urea Nitrogen 28 mg/dL (9-23); Calcium 8.9 mg/dL (8.3-10.6); Calcium (Corrected) 9.9 mg/dL (8.5-10.1); Carbon Dioxide 32.9 mMol/L (20.0-31.0); Chloride 93 mMol/L (98-107); Estimated Creatinine Clearance 56.7 mL/min (>60); Globulin 3.7 gm/dL (2.3-3.5); Glucose 69 mg/dL (74-106); Magnesium 2.5 mg/dL (1.6-2.6); Osmolality,Calculated 271 (275-295); Phosphorous 4.1 mg/dL (2.4-5.1); Potassium 3.9 mMol/L (3.4-5.1); Sodium 134 mMol/L (136-145); Total Protein 6.4 gm/dL (5.7-8.2); eGFR 58 See Note
[2024-08-04 07:35] LABS: C-Reactive Protein 16.2 mg/dL (0.0-0.9)
[2024-08-04] MEDS: DULoxetine HCL 30 MG CAPSULE 60 MG PO ×2 (09:42→21:57)
[2024-08-04] MEDS: Morphine Sulf 15 MG TABCR 30 MG PO (09:43)
[2024-08-04] MEDS: Furosemide 40 MG TABLET PO ×2 (09:43→21:57)
[2024-08-04] MEDS: METHIMAZOLE 5 MG TABLET PO (09:44)
[2024-08-04] MEDS: PANTOPRAZOLE 40 MG TABLET PO (09:44)
[2024-08-04] MEDS: SPIRONOLACTONE 25 MG TABLET PO (09:44)
[2024-08-04] MEDS: AMIODARONE HCL 200 MG TABLET PO ×2 (09:44→21:57)
[2024-08-04] MEDS: VANCOMYCIN/D5W 1,250 MG IVPB 250 ML 120 MG IV (10:05)
--- NOTE | 2024-08-04 10:12 | ESPR_ITS ---
Documentation for date of: 08/04/24 Subjective Subjective Interval history: No acute overnight events. Seen and examined at bedside and patient denies any nausea, vomiting, abdominal pain, or fevers. Spoke to physical therapy who will see patient later today as patient continues to feel weak. Spoke to GI and at this time we will continue with vancomycin and Zosyn given persistent leukocytosis that has downtrended from 44 to 38. Pending ID recommendations. CRP increased from 8 to 16. Total bilirubin increased from 3.2 to 3.6, AST/ALT/ALP all remaining stable. Blood cultures remain negative. Exam Vital Signs Temp Pulse Resp BP Pulse Ox O2 Del Method O2 Flow Rate 97.4 F 96 18 105/68 92 L Nasal Cannula 5 08/04/24 08:00 08/04/24 09:44 08/04/24 08:05 08/04/24 09:44 08/04/24 08:05 08/04/24 08:00 08/04/24 08:05 Narrative Exam General: A&Ox3, mild distress from pain HEENT: dry mucous membranes, NC/AT, bilateral sclera anicteric Cardiovascular: regular rate and rhythm, S1/S2 present, no murmurs appreciated Pulmonary: bibasilar crackles appreciated, no rales/rhonchi Abdominal: obese soft, non-tender, non-distended, no rebound/guarding, normal bowel sounds present Musculoskeletal: normal ROM, no peripheral edema Skin: chronic venous stasis changes, warm and dry, intact, no rashes Neuro: CN II-XII intact, no focal deficits Objective Labs 08/04/24 04:45 08/04/24 04:45 Labs: Laboratory Results - last 24 hr 08/03/24 08/03/24 08/03/24 05:04 10:32 11:00 WBC RBC Hgb Hct MCV MCH MCHC RDW Std Deviation Plt Count Neut % (Auto) Lymph % (Auto) [place] % (Auto) Eos % (Auto) Baso % (Auto) Neut # (Auto) Lymph # (Auto) [place] # (Auto) Eos # (Auto) Baso # (Auto) Immature Gran # (Auto) Absolute Nucleated RBC Immature Gran % Nucleated RBC % Smear Path Review Sodium Potassium Chloride Carbon Dioxide Anion Gap BUN Creatinine Estim Creat Clear Calc eGFR BUN/Creatinine Ratio Glucose Calculated Osmolality Lactic Acid 1.7 Calcium Corrected Calcium Phosphorus Magnesium Total Bilirubin AST ALT Alkaline Phosphatase C-Reactive Prot, Quant Total Protein Albumin Globulin Albumin/Globulin Ratio Procalcitonin 0.52 H Ur Collection Type Clean Catch Urine Color Yellow Urine Clarity Clear Urine pH 5.5 Ur Specific [place] 1.034 Urine Protein Negative Urine Glucose (UA) Negative Urine Ketones Negative Urine Blood Negative Urine Nitrite Negative Urine Bilirubin 1+ A Urine Urobilinogen (Auto) Negative Ur Leukocyte Esterase Negative Urine RBC 2 Urine WBC 2 Ur Squamous Epith Cells 1 Urine Bacteria None Ur Culture Indicated? Not Indicated Vancomycin Trough 08/04/24 08/04/24 04:45 08:10 WBC 38.0 H* D RBC 3.68 L Hgb 10.4 L Hct 30.8 L MCV 84 MCH 28.3 MCHC 33.8 RDW Std Deviation 50.0 H Plt Count 620 H D Neut % (Auto) 85 H Lymph % (Auto) 3 L [place] % (Auto) 8 Eos % (Auto) 0 Baso % (Auto) 0 Neut # (Auto) 32.5 H Lymph # (Auto) 1.2 [place] # (Auto) 3.0 H Eos # (Auto) 0.1 Baso # (Auto) 0.1 Immature Gran # (Auto) 1.11 H Absolute Nucleated RBC 0.00 Immature Gran % 3 H Nucleated RBC % 0 Smear Path Review Cancelled Sodium 134 L Potassium 3.9 Chloride 93 L Carbon Dioxide 32.9 H Anion Gap 8 BUN 28 H Creatinine 1.0 Estim Creat Clear Calc 56.7 L eGFR 58 L BUN/Creatinine Ratio 28 H Glucose 69 L Calculated Osmolality 271 L Lactic Acid Calcium 8.9 Corrected Calcium 9.9 Phosphorus 4.1 Magnesium 2.5 Total Bilirubin 3.6 H AST 144 H ALT 89 H Alkaline Phosphatase 269 H C-Reactive Prot, Quant 16.2 H Total Protein 6.4 Albumin 2.7 L Globulin 3.7 H Albumin/Globulin Ratio 0.7 L Procalcitonin Ur Collection Type Urine Color Urine Clarity Urine pH Ur Specific [place] Urine Protein Urine Glucose (UA) Urine Ketones Urine Blood Urine Nitrite Urine Bilirubin Urine Urobilinogen (Auto) Ur Leukocyte Esterase Urine RBC Urine WBC Ur Squamous Epith Cells Urine Bacteria Ur Culture Indicated? Vancomycin Trough 14.0 H Quality Measures Quality Measures none Advance care planning discussed with:: patient Assessment & Plan Assessment Current Active Medications: Generic Name Dose Route Start Last Admin Trade Name Freq PRN Reason Stop Dose Admin Acetaminophen 650 mg 07/23/24 15:30 08/04/24 04:10 Acetaminophen 325 Mg Tablet PO 08/22/24 15:29 650 mg Q6H PRN Administration PAIN OR FEVER > 100.4 Protocol Albuterol/Ipratropium 3 ml 07/27/24 13:32 07/29/24 09:21 Albuterol/Ipratropium (Duoneb) Rt Lauren 3 Ml Nebu INH 08/24/24 08:44 3 ml Q4HRRT PRN Administration wheezing, shortness of breath Amiodarone HCl 200 mg 07/31/24 21:00 08/04/24 09:44 Amiodarone Hcl 200 Mg Tablet PO 08/30/24 20:59 200 mg BID GHADA Administration Buspirone HCl 15 mg 07/24/24 10:57 07/30/24 13:25 Buspirone Hcl 5 Mg Tablet PO 08/23/24 10:56 15 mg TID PRN Administration Anxiety Duloxetine HCl 60 mg 07/24/24 21:00 08/04/24 09:42 Duloxetine Hcl 30 Mg Capsule PO 08/23/24 20:59 60 mg BID GHADA Administration Furosemide 40 mg 07/27/24 13:45 08/04/24 09:43 Furosemide 40 Mg Tablet PO 08/26/24 13:44 40 mg BID GHADA Administration Gabapentin 100 mg 07/28/24 09:00 08/04/24 06:11 Gabapentin 100 Mg Capsule PO 08/27/24 08:59 100 mg TID GHADA Administration Vancomycin HCl/Dextrose 250 mls @ 120 mls/hr 08/02/24 10:00 08/04/24 10:05 Vancomycin/D5w 1,250 Mg Ivpb IV 08/09/24 09:59 120 mls/hr Q24H GHADA Administration Piperacillin/Tazobactam/Dextrose 50 mls @ 100 mls/hr 08/04/24 10:10 Zosyn IV 08/11/24 10:09 Q8HR GHADA Lactulose 20 gm 08/03/24 17:00 08/04/24 06:11 Lactulose Syrup 20 Gm/30 Ml Udc PO 09/02/24 16:59 20 gm QID GHADA Administration Protocol Melatonin 3 mg 07/31/24 21:00 08/03/24 21:56 Melatonin 3 Mg Tablet PO 08/30/24 20:59 Not Given HS GHADA Methimazole 5 mg 07/23/24 09:00 08/04/24 09:44 Methimazole 5 Mg Tablet PO 08/22/24 08:59 5 mg DAILY GHADA Administration Morphine Sulfate 30 mg 07/31/24 09:00 08/04/24 09:43 Morphine Sulf 15 Mg Tabcr PO 08/05/24 08:59 30 mg QDAY GHADA Administration Protocol Morphine Sulfate 30 mg 07/30/24 21:00 08/03/24 20:42 Morphine Sulf 15 Mg Tabcr PO 08/04/24 20:59 30 mg QPM GHADA Administration Protocol Ondansetron HCl 4 mg 07/23/24 15:34 07/23/24 16:49 Ondansetron Inj 2 Mg/Ml Inj 2 Ml IV 08/22/24 15:33 4 mg Q6H PRN Administration NAUSEA OR VOMITING Protocol Pantoprazole Sodium 40 mg 07/24/24 09:00 08/04/24 09:44 Pantoprazole 40 Mg Tablet PO 08/23/24 08:59 40 mg QDAY GHADA Administration Pharmacy Consult 1 each 07/28/24 09:41 Vancomycin Pharmacy To Dose 1 Each Each IV 08/27/24 09:40 QDAY PRN CONSULT Rivaroxaban 20 mg 07/25/24 17:30 08/03/24 17:33 Rivaroxaban 10 Mg Tablet PO 08/24/24 17:29 20 mg WSUPPER GHADA Administration Spironolactone 25 mg 07/25/24 09:00 08/04/24 09:44 Spironolactone 25 Mg Tablet PO 08/24/24 08:59 25 mg QDAY GHADA Administration Ursodiol 300 mg 07/27/24 12:00 08/04/24 06:11 Ursodiol 300 Mg Capsule PO 08/26/24 11:59 300 mg QID GHADA Administration Plan Nneka Burciaga is a 74-year-old female with a past medical history of COPD on 2 L home oxygen, HFpEF (55-60% on 11/2023), a-fib on Xarelto, hypertension, and chronic pain who presented to the ED on 07/22 status-post multiple ground-level falls at home and found to have enlarged CBD on imaging, admitted for further work-up. #Enlarged CBD #History of cholecystectomy #Transaminitis #Hyperbilirubinemia #Biliary stricture s/p stent No fever, chills, nausea, vomiting, abdominal pain, change in bowel habits. Gallbladder ultrasound: Enlarged CBD 1.2 cm. MRCP: Extrahepatic biliary tract dilatation with abrupt termination at distal CBD. HIDA scan showed a large common hepatic and CBD, although contrast in small bowel. ERCP 08/01: upper third of main bile duct markedly dilated secondary to stricture and middle third of main bile duct contained single moderate stenosis; biliary sphincterotomy made and 1 stent 1 internal flap placed in CBD ? GI consulted, appreciate recommendations ? Repeat blood culture 08/01: NGTD ? Will need repeat ERCP with [facility] to examine CBD and with possible biopsy ? Zosyn 3.375 g IV q6h (07/27-) and vancomycin (07/28-) ? Ursodiol 300 mg p.o. q6h #Leukocytosis, reactive vs inflammatory vs infective process Repeat CT A/P showed edema around pancreas, pneumobilia, bibasilar pneumonia with small pleural effusions. Repeat HIDA scan showed isotope activity in small bowel without enlargement of common hepatic or common bile duct. Lactate wnl, procal slightly elevated at 0.52, CRP uptrended from 6.8 to 8.3. Lipase wnl. ? GI consulted as above ? ID consulted, appreciate recommendations #Urinary tract infection UA showed turbid urine, 2+ blood, 23 RBC, WBC 966, 3+ bacteria, hyaline casts present. Repeat UA showed no signs of infection but now with 1+ bilirubin. Zosyn (07/23-07/25), ceftriaxone (07/25-07/27) ? Urine culture: Klebsiella pneumonia ? Zosyn 3.375 g IV q6h (07/27-) #Acute kidney injury, prerenal vs intrarenal, resolved May be due to dehydration vs rhabdomyolysis ? Avoid nephrotoxic agents, renally dose medications ? Encourage increased p.o. intake #Rhabdomyolysis, improving Found down at home after fall, may have been for a couple of hours per history. Initial CK 3500, will continue to trend. ? Received 3 L IVF per sepsis protocol and an additional 1 L afterwards ? Encourage increased p.o. intake #HFpEF (EF 55-60% on 11/2023) Follows-up with Dr. Browning outpatient. Not in exacerbation and not overloaded at this time. BNP 395. Repeat CXR on 08/02 showed interval development of pulmonary edema vs pneumonia ? Cardiology consulted, appreciate recommendations ? Follow-up echo ? Carvedilol 3.125 mg p.o. BIDWM -> HELD ? Spironolactone 25 mg p.o. daily ? Lasix 40 mg IV BID ? Strict I's and O's, daily weights, low sodium diet, fliud restriction (1.5 L/day) #Atrial fibrillation, on Xarelto and amiodarone On 07/24, Heart rate noted to be in the 40s and 50s with associated drowsiness, EKG showed sinus bradycardia with first-degree AV block Per cardio recommendations, will decrease amiodarone to 200 mg daily and discontinue Coreg May consider increasing her amiodarone back to her home dose of 200 mg twice daily ? Amiodarone 200 mg p.o. BID ? Xarelto resumed #COPD on 2 L home O2 Does not have any inhalers at home per son. ? Duonebs scheduled #History of hypertension ? Carvedilol as above #Chronic pain ? Gabapentin 100 mg p.o. 3 times daily ? Duloxetine 60 mg p.o. twice daily ? Morphine sulfate 30 mg p.o. BID ? [place] 5 q6h prn Hospital management: Disposition: status-post ERCP, increasing WBC, ID and GI following Diet: high calorie/protein diet (1.5 L fluid restriction), ensure Lines: PIV DVT prophylaxis: SCDs GI prophylaxis: pantoprazole 40 mg po daily CODE STATUS: DNR/DNI ----- Plan discussed with attending physician Dr. Cecilia Smith MD PGY-1 Internal Medicine Attending Provider Attestation/Addendum I attest that I was physically present for the evaluation, physical examination, lab and imaging review of the patient with the residents. I discussed the case with the residents and agree with the findings and plans of care as documented above. At bedside today, patient appeared mildly frustrated that she feels weak and has been in the hospital for a long time. Denies any nausea, vomiting, abdominal pain or fever. Explained to her about current condition including elevated WBC count and need for close monitoring. Will discuss with physical therapy regarding more sessions. Discussed with gastroenterology, recommended to continue IV vancomycin and Zosyn and obtain ID recommendations. WBC have improved from 44.6 yesterday to 38.0 today. Platelet count went up to 620 from 402 yesterday, CRP also elevated to 16.2 from 8.3 yesterday. Total bilirubin also slightly went up but the rest of the liver panel were stable. Continues to be on 4 to 5 L of nasal cannula, saturating well. Blood culture results have been negative for more than 48 hours. Awaiting infectious disease recommendations. Unique Brooks MD
[2024-08-04] MEDS: PIPER/TAZO 3.375 GM PREMIX 3.375 GM/50 ML BAG IV ×3 (10:47→21:57)
--- NOTE | 2024-08-04 16:25 | PC.SS ---
SS followed up with Leydi Loomis, after rounding, pt will not be discharged SS spoke with blu Dillon, went over medicare information; provided update that at current time pt has not been discharged SS spoke with Leydi Loomis, confirmed bed is available upon discharge; sent over updated progress notes via [employer]
[2024-08-04] MEDS: RIVAROXABAN 10 MG TABLET 20 MG PO (17:09)
[2024-08-05] VITALS (12 sets, daily range): BP systolic 104–118; BP diastolic 68–77; PULSE 89–110; RESP 19–30; TEMP 36.1–36.3; O2SAT 91–958
[2024-08-05] MEDS: ACETAMINOPHEN 325 MG TABLET 650 MG PO ×2 (03:36→11:19)
[2024-08-05] MEDS: PIPER/TAZO 3.375 GM PREMIX 3.375 GM/50 ML BAG IV (05:31)
[2024-08-05] MEDS: GABAPENTIN 100 MG CAPSULE PO ×3 (05:31→21:32)
[2024-08-05] MEDS: LACTULOSE SYRUP 20 GM/30 ML UDC PO ×4 (05:31→21:20)
[2024-08-05] MEDS: ursodioL 300 MG CAPSULE PO ×4 (05:31→21:15)
--- NOTE | 2024-08-05 06:22 | PC.NURSE ---
Pt platelets 620, Dr. Tapia was made aware, will pass report to day team. no new orders received at this time.
[2024-08-05 06:44] LABS: Basophils # (Auto) 0.1 Thou/mm3 (0.0-0.2); Basophils % (Auto) 0 % (0-2.5); Eosinophils # (Auto) 0.2 Thou/mm3 (0.0-0.5); Eosinophils % (Auto) 1 % (0-10); Hematocrit 29.8 % (36.0-46.0); Hemoglobin 10.2 g/dL (12.0-16.0); Immature Granulocytes % (Auto) 2 % (0-0); Immature Granulocytes Auto 0.72 Thou/mm3 (0.00-0.00); Lymphocytes # (Auto) 1.1 Thou/mm3 (1.0-4.8); Lymphocytes % (Auto) 4 % (10-50); Mean Corpuscular HGB Conc 34.2 g/dl (31.0-37.0); Mean Corpuscular Hemoglobin 28.3 pg (25.0-35.0); Mean Corpuscular Volume 83 fL (80-100); Monocytes # (Auto) 2.7 Thou/mm3 (0.0-0.8); Monocytes % (Auto) 9 % (0-12); Neutrophils # (Auto) 26.2 Thou/mm3 (1.8-7.7); Neutrophils % (Auto) 85 % (37-80); Nucleated Red Blood Cell % 0 /100 WBC (0); Platelet Count 508 Thou/mm3 (140-440); RDW Standard Deviation 49.1 fL (36.4-46.3); White Blood Count 30.9 Thou/mm3 (3.6-11.0)
[2024-08-05 07:31] LABS: Alanine Aminotransferase 88 U/L (10-49); Albumin, Serum 2.7 gm/dL (3.4-4.8); Albumin/Globulin Ratio 0.8 (1.2-2.2); Alkaline Phosphatase 289 U/L (46-116); Anion Gap 8 (7-16); Aspartate Amino Transferase 162 U/L (0-34); BUN/Creatinine Ratio 28 Ratio (12-20); Bilirubin,Total 3.8 mg/dL (0.3-1.2); Blood Urea Nitrogen 31 mg/dL (9-23); C-Reactive Protein 14.9 mg/dL (0.0-0.9); Calcium 8.5 mg/dL (8.3-10.6); Calcium (Corrected) 9.5 mg/dL (8.5-10.1); Carbon Dioxide 33.9 mMol/L (20.0-31.0); Chloride 93 mMol/L (98-107); Creatinine (Component) 1.1 mg/dL (0.6-1.3); Estimated Creatinine Clearance 51.6 mL/min (>60); Globulin 3.4 gm/dL (2.3-3.5); Glucose 71 mg/dL (74-106); Magnesium 2.3 mg/dL (1.6-2.6); Osmolality,Calculated 274 (275-295); Phosphorous 3.6 mg/dL (2.4-5.1); Potassium 4.3 mMol/L (3.4-5.1); Prealbumin < 5.0 mg/dL (10.0-40.0); Sodium 135 mMol/L (136-145); Total Protein 6.1 gm/dL (5.7-8.2); eGFR 52 See Note
[2024-08-05] MEDS: DULoxetine HCL 30 MG CAPSULE 60 MG PO ×2 (08:41→21:14)
[2024-08-05] MEDS: Furosemide 40 MG TABLET PO ×2 (08:42→21:16)
[2024-08-05] MEDS: AMIODARONE HCL 200 MG TABLET PO ×2 (08:42→21:15)
[2024-08-05] MEDS: SPIRONOLACTONE 25 MG TABLET PO (08:43)
[2024-08-05] MEDS: METHIMAZOLE 5 MG TABLET PO (08:43)
[2024-08-05] MEDS: PANTOPRAZOLE 40 MG TABLET PO (08:46)
[2024-08-05] MEDS: VANCOMYCIN/D5W 1,250 MG IVPB 250 ML 120 MG IV (09:24)
--- NOTE | 2024-08-05 10:58 | PD.RESPRO ---
Documentation for date of: 08/05/24 Subjective Subjective Interval history: No acute overnight events. Overnight morphine dosages changed from BID to only once at night. Patient has recent prescription of 60 mg twice daily, and thus will go back to previous dose of morphine 30 mg twice daily as she continues to endorse significant pain in her lower extremities and neck after her falls prior to admission. Otherwise, she remains on 5 L NC, heart rate 102, but afebrile. WBC continues to improve from 38 to 31, hemoglobin stable, platelets downtrending from 620 to 500. T bili increased from 3.6 to 3.8, AST increased from 144 to 162, ALT stable at 89, ALP increased from 269 to 289. CRP downtrended from 16 to 15. Blood cultures from 08/02: NGTD. Will await further recommendations from GI and ID. Exam Vital Signs Temp Pulse Resp BP Pulse Ox O2 Del Method O2 Flow Rate 97.0 F 102 H 20 107/71 91 L Nasal Cannula 5 08/05/24 08:00 08/05/24 08:43 08/05/24 08:00 08/05/24 08:43 08/05/24 08:00 08/05/24 08:00 08/05/24 08:00 Narrative Exam General: A&Ox3, mild distress from pain HEENT: dry mucous membranes, NC/AT, bilateral sclera anicteric Cardiovascular: regular rate and rhythm, S1/S2 present, no murmurs appreciated Pulmonary: bibasilar crackles appreciated, no rales/rhonchi Abdominal: obese soft, non-tender, non-distended, no rebound/guarding, normal bowel sounds present Musculoskeletal: normal ROM, no peripheral edema Skin: chronic venous stasis changes, warm and dry, intact, no rashes Neuro: CN II-XII intact, no focal deficits Objective Labs 08/05/24 05:27 08/05/24 05:27 Labs: Laboratory Results - last 24 hr 08/05/24 05:27 WBC 30.9 H D RBC 3.60 L Hgb 10.2 L Hct 29.8 L MCV 83 MCH 28.3 MCHC 34.2 RDW Std Deviation 49.1 H Plt Count 508 H D Neut % (Auto) 85 H Lymph % (Auto) 4 L [place] % (Auto) 9 Eos % (Auto) 1 Baso % (Auto) 0 Neut # (Auto) 26.2 H Lymph # (Auto) 1.1 [place] # (Auto) 2.7 H Eos # (Auto) 0.2 Baso # (Auto) 0.1 Immature Gran # (Auto) 0.72 H Absolute Nucleated RBC 0.00 Immature Gran % 2 H Nucleated RBC % 0 Sodium 135 L Potassium 4.3 Chloride 93 L Carbon Dioxide 33.9 H Anion Gap 8 BUN 31 H Creatinine 1.1 Estim Creat Clear Calc 51.6 L eGFR 52 L BUN/Creatinine Ratio 28 H Glucose 71 L Calculated Osmolality 274 L Calcium 8.5 Corrected Calcium 9.5 Phosphorus 3.6 Magnesium 2.3 Total Bilirubin 3.8 H AST 162 H ALT 88 H Alkaline Phosphatase 289 H D C-Reactive Prot, Quant 14.9 H Total Protein 6.1 Albumin 2.7 L Globulin 3.4 Albumin/Globulin Ratio 0.8 L Prealbumin < 5.0 L Quality Measures Quality Measures none Advance care planning discussed with:: patient Assessment & Plan Assessment Current Active Medications: Generic Name Dose Route Start Last Admin Trade Name Freq PRN Reason Stop Dose Admin Acetaminophen 650 mg 07/23/24 15:30 08/05/24 03:36 Acetaminophen 325 Mg Tablet PO 08/22/24 15:29 650 mg Q6H PRN Administration PAIN OR FEVER > 100.4 Protocol Albuterol/Ipratropium 3 ml 07/27/24 13:32 07/29/24 09:21 Albuterol/Ipratropium (Duoneb) Rt Lauren 3 Ml Nebu INH 08/24/24 08:44 3 ml Q4HRRT PRN Administration wheezing, shortness of breath Amiodarone HCl 200 mg 07/31/24 21:00 08/05/24 08:42 Amiodarone Hcl 200 Mg Tablet PO 08/30/24 20:59 200 mg BID GHADA Administration Buspirone HCl 15 mg 07/24/24 10:57 07/30/24 13:25 Buspirone Hcl 5 Mg Tablet PO 08/23/24 10:56 15 mg TID PRN Administration Anxiety Duloxetine HCl 60 mg 07/24/24 21:00 08/05/24 08:41 Duloxetine Hcl 30 Mg Capsule PO 08/23/24 20:59 60 mg BID GHADA Administration Furosemide 40 mg 07/27/24 13:45 08/05/24 08:42 Furosemide 40 Mg Tablet PO 08/26/24 13:44 40 mg BID GHADA Administration Gabapentin 100 mg 07/28/24 09:00 08/05/24 05:31 Gabapentin 100 Mg Capsule PO 08/27/24 08:59 100 mg TID GHADA Administration Vancomycin HCl/Dextrose 250 mls @ 120 mls/hr 08/02/24 10:00 08/05/24 09:24 Vancomycin/D5w 1,250 Mg Ivpb IV 08/09/24 09:59 120 mls/hr Q24H GHADA Administration Piperacillin/Tazobactam/Dextrose 3.375 gm in 50 mls @ 12.5 mls/hr 08/04/24 14:00 08/05/24 05:31 Zosyn IV 08/11/24 13:59 12.5 mls/hr Q8HR GHADA Administration Lactulose 20 gm 08/03/24 17:00 08/05/24 05:31 Lactulose Syrup 20 Gm/30 Ml Udc PO 09/02/24 16:59 20 gm QID GHADA Administration Protocol Melatonin 3 mg 07/31/24 21:00 08/04/24 21:58 Melatonin 3 Mg Tablet PO 08/30/24 20:59 Not Given HS GHADA Methimazole 5 mg 07/23/24 09:00 08/05/24 08:43 Methimazole 5 Mg Tablet PO 08/22/24 08:59 5 mg DAILY GHADA Administration Morphine Sulfate 30 mg 08/04/24 22:30 08/04/24 22:45 Morphine Sulf 15 Mg Tabcr PO 08/09/24 22:29 Not Given HS GHADA Protocol Ondansetron HCl 4 mg 07/23/24 15:34 07/23/24 16:49 Ondansetron Inj 2 Mg/Ml Inj 2 Ml IV 08/22/24 15:33 4 mg Q6H PRN Administration NAUSEA OR VOMITING Protocol Pantoprazole Sodium 40 mg 07/24/24 09:00 08/05/24 08:46 Pantoprazole 40 Mg Tablet PO 08/23/24 08:59 40 mg QDAY GHADA Administration Pharmacy Consult 1 each 07/28/24 09:41 Vancomycin Pharmacy To Dose 1 Each Each IV 08/27/24 09:40 QDAY PRN CONSULT Rivaroxaban 20 mg 07/25/24 17:30 08/04/24 17:09 Rivaroxaban 10 Mg Tablet PO 08/24/24 17:29 20 mg WSUPPER GHADA Administration Spironolactone 25 mg 07/25/24 09:00 08/05/24 08:43 Spironolactone 25 Mg Tablet PO 08/24/24 08:59 25 mg QDAY GHADA Administration Ursodiol 300 mg 07/27/24 12:00 08/05/24 05:31 Ursodiol 300 Mg Capsule PO 08/26/24 11:59 300 mg QID GHADA Administration Plan Nneka Burciaga is a 74-year-old female with a past medical history of COPD on 2 L home oxygen, HFpEF (55-60% on 11/2023), a-fib on Xarelto, hypertension, and chronic pain who presented to the ED on 07/22 status-post multiple ground-level falls at home and found to have enlarged CBD on imaging, admitted for further work-up. #Enlarged CBD #History of cholecystectomy #Transaminitis #Hyperbilirubinemia #Biliary stricture s/p stent No fever, chills, nausea, vomiting, abdominal pain, change in bowel habits. Gallbladder ultrasound: Enlarged CBD 1.2 cm. MRCP: Extrahepatic biliary tract dilatation with abrupt termination at distal CBD. HIDA scan showed a large common hepatic and CBD, although contrast in small bowel. ERCP 08/01: upper third of main bile duct markedly dilated secondary to stricture and middle third of main bile duct contained single moderate stenosis; biliary sphincterotomy made and 1 stent 1 internal flap placed in CBD Zosyn (07/27-08/05) and vancomycin (07/28-08/05) ? GI consulted, appreciate recommendations ? Repeat blood culture 08/01: NGTD ? Augmentin 875 mg twice daily (08/05-) ? Will need repeat ERCP with [facility] outpatient to examine CBD and with possible biopsy ? Ursodiol 300 mg p.o. q6h #Leukocytosis, reactive vs inflammatory vs infective process Repeat CT A/P showed edema around pancreas, pneumobilia, bibasilar pneumonia with small pleural effusions. Repeat HIDA scan showed isotope activity in small bowel without enlargement of common hepatic or common bile duct. Suspect to be reactive or irritation to pancreas as seen on repeat imaging in setting of recent ERCP. ? GI consulted as above ? ID consulted, appreciate recommendations #Urinary tract infection, resolved UA showed turbid urine, 2+ blood, 23 RBC, WBC 966, 3+ bacteria, hyaline casts present. Repeat UA showed no signs of infection but now with 1+ bilirubin. Zosyn (07/27-08/05) and vancomycin (07/28-08/05), ceftriaxone (07/25-07/27) ? Urine culture: Klebsiella pneumonia #Acute kidney injury, prerenal vs intrarenal, resolved May be due to dehydration vs rhabdomyolysis ? Avoid nephrotoxic agents, renally dose medications ? Encourage increased p.o. intake #Rhabdomyolysis, improving Found down at home after fall, may have been for a couple of hours per history. Initial CK 3500, will continue to trend. ? Received 3 L IVF per sepsis protocol and an additional 1 L afterwards ? Encourage increased p.o. intake #HFpEF (EF 55-60% on 11/2023) Follows-up with Dr. Browning outpatient. Not in exacerbation and not overloaded at this time. BNP 395. Repeat CXR on 08/02 showed interval development of pulmonary edema vs pneumonia ? Cardiology consulted, appreciate recommendations ? Follow-up echo ? Carvedilol 3.125 mg p.o. BIDWM -> HELD ? Spironolactone 25 mg p.o. daily ? Lasix 40 mg IV BID ? Strict I's and O's, daily weights, low sodium diet, fliud restriction (1.5 L/day) #Atrial fibrillation, on Xarelto and amiodarone On 07/24, Heart rate noted to be in the 40s and 50s with associated drowsiness, EKG showed sinus bradycardia with first-degree AV block Per cardio recommendations, will decrease amiodarone to 200 mg daily and discontinue Coreg May consider increasing her amiodarone back to her home dose of 200 mg twice daily ? Amiodarone 200 mg p.o. BID ? Xarelto resumed #COPD on 2 L home O2 Does not have any inhalers at home per son. ? Duonebs scheduled #History of hypertension ? Carvedilol as above #Chronic pain ? Gabapentin 100 mg p.o. 3 times daily ? Duloxetine 60 mg p.o. twice daily ? Morphine sulfate 30 mg p.o. in AM and 45 mg p.o. HS ? [place] 5 q6h prn Hospital management: Disposition: status-post ERCP, increasing WBC, ID and GI following Diet: high calorie/protein diet (1.5 L fluid restriction), ensure Lines: PIV DVT prophylaxis: SCDs GI prophylaxis: pantoprazole 40 mg po daily CODE STATUS: DNR/DNI ----- Plan discussed with attending physician Dr. Cecilia Smith MD PGY-1 Internal Medicine Attending Provider Attestation/Addendum I attest that I was physically present for the evaluation, physical examination, lab and imaging review of the patient with the residents. I discussed the case with the residents and agree with the findings and plans of care as documented above. At bedside today, patient was concerned that she feels weak and has been on the bed for a long time. Explained to her about her WBC count, discussion with gastroenterology and recommendation for ID. Patient understands and agrees with the plan. Her morphine was changed to once daily overnight, we will resume 30 mg twice daily As patient continues to complain of neck pain. Continues to be on 5 L nasal cannula, saturating well. WBC count have been improving, 30.9 today from 38 hemoglobin continues to be stable. Liver function including bilirubin have been stable, only minor changes. CRP is 15 today from 16 yesterday. Discussed with gastroenterology and infectious disease, we switch the antibiotics to oral Augmentin and await ID recommendations. Unique Brooks MD
[2024-08-05] MEDS: AMOXICILLIN/POT CLAV 875 TABLET 1 TAB PO ×2 (12:11→21:15)
[2024-08-05] MEDS: Morphine Sulf 15 MG TABCR 30 MG PO (12:11)
--- NOTE | 2024-08-05 14:39 | PC.SS ---
Rounding: Pending ID reccs, IV ABX switched to Oral. Pt will be DC to [facility] when medically stable
[2024-08-05] MEDS: RIVAROXABAN 10 MG TABLET 20 MG PO (16:54)
[2024-08-05] MEDS: Morphine Sulf 15 MG TABCR 45 MG PO (21:15)
[2024-08-05] MEDS: MELATONIN 3 MG TABLET PO (21:17)
[2024-08-06] VITALS (13 sets, daily range): BP systolic 99–128; BP diastolic 67–84; PULSE 70–118; RESP 15–21; TEMP 36.2–36.6; O2SAT 91–97; BMI 12.0
[2024-08-06] LABS: Hepatitis C Antibody Non Reactive (Non React)
[2024-08-06] MEDS: ursodioL 300 MG CAPSULE PO ×4 (05:36→23:20)
[2024-08-06] MEDS: GABAPENTIN 100 MG CAPSULE PO ×2 (05:36→14:35)
[2024-08-06] MEDS: LACTULOSE SYRUP 20 GM/30 ML UDC PO ×3 (05:37→16:49)
[2024-08-06 05:42] LABS: Basophils # (Auto) 0.1 Thou/mm3 (0.0-0.2); Basophils % (Auto) 0 % (0-2.5); Eosinophils # (Auto) 0.3 Thou/mm3 (0.0-0.5); Eosinophils % (Auto) 1 % (0-10); Hematocrit 30.7 % (36.0-46.0); Hemoglobin 10.5 g/dL (12.0-16.0); Immature Granulocytes % (Auto) 2 % (0-0); Immature Granulocytes Auto 0.41 Thou/mm3 (0.00-0.00); Lymphocytes # (Auto) 1.2 Thou/mm3 (1.0-4.8); Lymphocytes % (Auto) 5 % (10-50); Mean Corpuscular HGB Conc 34.2 g/dl (31.0-37.0); Mean Corpuscular Hemoglobin 28.2 pg (25.0-35.0); Mean Corpuscular Volume 83 fL (80-100); Monocytes # (Auto) 2.6 Thou/mm3 (0.0-0.8); Monocytes % (Auto) 10 % (0-12); Neutrophils # (Auto) 21.1 Thou/mm3 (1.8-7.7); Neutrophils % (Auto) 82 % (37-80); Nucleated Red Blood Cell % 0 /100 WBC (0); Platelet Count 530 Thou/mm3 (140-440); RDW Standard Deviation 49.3 fL (36.4-46.3); Red Blood Count 3.72 Miln/mm3 (4.00-5.20); White Blood Count 25.6 Thou/mm3 (3.6-11.0)
[2024-08-06 06:06] LABS: Alanine Aminotransferase 102 U/L (10-49); Albumin, Serum 2.8 gm/dL (3.4-4.8); Albumin/Globulin Ratio 0.8 (1.2-2.2); Alkaline Phosphatase 303 U/L (46-116); Anion Gap 7 (7-16); Aspartate Amino Transferase 204 U/L (0-34); BUN/Creatinine Ratio 24 Ratio (12-20); Bilirubin,Total 3.6 mg/dL (0.3-1.2); Blood Urea Nitrogen 29 mg/dL (9-23); Calcium 9.7 mg/dL (8.3-10.6); Calcium (Corrected) 10.7 mg/dL (8.5-10.1); Carbon Dioxide 34.2 mMol/L (20.0-31.0); Chloride 92 mMol/L (98-107); Creatinine (Component) 1.2 mg/dL (0.6-1.3); Estimated Creatinine Clearance 47.3 mL/min (>60); Globulin 3.7 gm/dL (2.3-3.5); Glucose 75 mg/dL (74-106); Magnesium 2.6 mg/dL (1.6-2.6); Osmolality,Calculated 271 (275-295); Potassium 4.3 mMol/L (3.4-5.1); Sodium 133 mMol/L (136-145); Total Protein 6.5 gm/dL (5.7-8.2); eGFR 47 See Note
[2024-08-06 09:44] LABS: C-Reactive Protein 11.6 mg/dL (0.0-0.9)
[2024-08-06] MEDS: AMOXICILLIN/POT CLAV 875 TABLET 1 TAB PO ×2 (09:48→23:20)
[2024-08-06] MEDS: DULoxetine HCL 30 MG CAPSULE 60 MG PO (09:48)
[2024-08-06] MEDS: SPIRONOLACTONE 25 MG TABLET PO (09:49)
[2024-08-06] MEDS: METHIMAZOLE 5 MG TABLET PO (09:49)
[2024-08-06] MEDS: AMIODARONE HCL 200 MG TABLET PO ×2 (09:50→23:20)
[2024-08-06] MEDS: Morphine Sulf 15 MG TABCR 30 MG PO (09:50)
--- NOTE | 2024-08-06 10:18 | XR_ITS ---
Examination: AP chest single view TECHNIQUE: Sitting portable AP chest single view Date and time: August 06, 2024 1032 hours Comparison July 03, 2024 INDICATIONS: Shortness of breath today. FINDINGS: Bilateral lung opacity, edema and/or pneumonia Mild prominence left ventricle Air distended stomach Prominent osteopenia IMPRESSION: Bilateral lung opacity, edema and/or pneumonia, clinical correlation advised
--- NOTE | 2024-08-06 11:05 | ESPR_ITS ---
<Statement entered by Loly Mcguire MD - 08/07/24 07:45> 74-year-old female with multiple comorbidities including hypertension, atrial fibrillation on Xarelto, COPD on 2 L supplemental oxygen and heart failure with preserved EF with EF 55-60% who presented to the ER on 07/23/2019 for for ground- level fall and underwent extensive workup with findings of enlarged CBD. During course of hospitalization, patient underwent extensive workup including MRCP which noted extrahepatic biliary tract dilatation with abrupt termination of distal CBD and subsequently T. bili continued uptrending for which underwent ERCP on 07/23/2023 and patient status post stent placement. Furthermore, patient continued to have uptrending and T. bili discussed with paper stacker who recommended continued monitoring the patient. Patient does not have any signs of acute cholangitis (right upper quadrant pain, fevers, altered mentation or hypotension) and plan to continue monitoring the patient's T. bili closely. Furthermore, patient is on methimazole which at times can cause elevation in T. bili and plan to hold it and monitor T. bili. Moreover, patient also does have significant leukocytosis and at one point peaked to 40,000 however downtrending and again patient does not have any fevers and per gastroenterology plan to continue monitoring the patient closely. I reviewed above note and agree with findings and plans. I have also personally examined the patient with medicine team and went over assessment and plan with medical team including rn internal medicine and resident physician. <Statement entered by Elizabeth Styles MD - 08/06/24 15:19> Patient seen and examined at bedside. No acute overnight events reported. Will decrease patient's morphine from 45 mg at night to 30 mg at night. Patient continues to be drowsy when she wakes up, most likely in the setting setting of pain medications. Patient continues to be on 4 L nasal cannula saturating well above 90%. Patient's leukocytosis and CRP are downtrending and improving. Will hold off on methimazole for now as patient's T. bili is high but stable. Will hold off on Lasix and give gentle bolus fluids for now. I discussed with and supervised the rn internal medicine physician who took care of this patient. I personally saw and examined the patient and discussed the assessment and plan with the entire medicine team, including my attending Dr. Obad, I agree with most of the assessment and plan as documented below Elizabeth Styles M.D. PGY-2 Disclaimer: Despite multiple revisions, due to the dictation software being used, the document bellow may not be free of grammatical errors including phonetic/typographic errors. However, this does not deter from our commitment to providing health care in the patient's best interest in mind. Documentation for date of: 08/06/24 Subjective Subjective Interval history: No acute overnight events. Seen and examined at bedside and patient is alert and oriented but appears tired. At times she also appears to have tangential speech, likely secondary to hospital-acquired delirium. Requested PT to see her today and for nursing staff to get her out of bed if possible as patient continues to get weaker during hospitalization. Continues to be on 4 L NC and saturating 91%, afebrile, heart rate 110. Leukocytosis improving from 31 to 25, CRP downtrending. However, LFTs and ALP continue to increase (t bili stable) so will hold methimazole. Due to dry oral mucosa and lack of lower extremity edema, will give 500 cc of NS and hold lasix for today due to increasing creatinine. Currently pending ID recs. Exam Vital Signs Temp Pulse Resp BP Pulse Ox O2 Del Method O2 Flow Rate 97.1 F 113 H 18 123/71 93 L Nasal Cannula 4 08/06/24 08:00 08/06/24 09:50 08/06/24 08:00 08/06/24 09:50 08/06/24 08:00 08/06/24 08:00 08/06/24 08:00 Narrative Exam General: A&Ox3, sleepy, mild distress from pain HEENT: dry mucous membranes, NC/AT, bilateral sclera anicteric Cardiovascular: regular rate and rhythm, S1/S2 present, no murmurs appreciated Pulmonary: bibasilar crackles appreciated, no rales/rhonchi Abdominal: obese soft, non-tender, non-distended, no rebound/guarding, normal bowel sounds present Musculoskeletal: normal ROM, no peripheral edema Skin: chronic venous stasis changes, warm and dry, intact, no rashes Neuro: CN II-XII intact, no focal deficits Objective Labs 08/06/24 04:39 08/06/24 04:39 Labs: Laboratory Results - last 24 hr 08/03/24 08/06/24 05:04 04:39 WBC 25.6 H D RBC 3.72 L Hgb 10.5 L Hct 30.7 L MCV 83 MCH 28.2 MCHC 34.2 RDW Std Deviation 49.3 H Plt Count 530 H Neut % (Auto) 82 H Lymph % (Auto) 5 L [place] % (Auto) 10 Eos % (Auto) 1 Baso % (Auto) 0 Neut # (Auto) 21.1 H Lymph # (Auto) 1.2 [place] # (Auto) 2.6 H Eos # (Auto) 0.3 Baso # (Auto) 0.1 Immature Gran # (Auto) 0.41 H Absolute Nucleated RBC 0.00 Immature Gran % 2 H Nucleated RBC % 0 Sodium 133 L Potassium 4.3 Chloride 92 L Carbon Dioxide 34.2 H Anion Gap 7 BUN 29 H Creatinine 1.2 Estim Creat Clear Calc 47.3 L eGFR 47 L BUN/Creatinine Ratio 24 H Glucose 75 Calculated Osmolality 271 L Calcium 9.7 Corrected Calcium 10.7 H Phosphorus 4.0 Magnesium 2.6 Total Bilirubin 3.6 H AST 204 H ALT 102 H Alkaline Phosphatase 303 H C-Reactive Prot, Quant 11.6 H Total Protein 6.5 Albumin 2.8 L Globulin 3.7 H Albumin/Globulin Ratio 0.8 L Hepatitis C Antibody Non Reactive Quality Measures Quality Measures none Advance care planning discussed with:: patient and child Assessment & Plan Assessment Current Active Medications: Generic Name Dose Route Start Last Admin Trade Name Freq PRN Reason Stop Dose Admin Acetaminophen 650 mg 07/23/24 15:30 08/05/24 11:19 Acetaminophen 325 Mg Tablet PO 08/22/24 15:29 650 mg Q6H PRN Administration PAIN OR FEVER > 100.4 Protocol Albuterol/Ipratropium 3 ml 07/27/24 13:32 07/29/24 09:21 Albuterol/Ipratropium (Duoneb) Rt Lauren 3 Ml Nebu INH 08/24/24 08:44 3 ml Q4HRRT PRN Administration wheezing, shortness of breath Amiodarone HCl 200 mg 07/31/24 21:00 08/06/24 09:50 Amiodarone Hcl 200 Mg Tablet PO 08/30/24 20:59 200 mg BID GHADA Administration Amoxicillin/Clavulanate Potassium 1 tab 08/05/24 11:35 08/06/24 09:48 Amoxicillin/Pot Clav 875 Tablet PO 08/07/24 11:34 1 tab BID GHADA Administration Buspirone HCl 15 mg 07/24/24 10:57 07/30/24 13:25 Buspirone Hcl 5 Mg Tablet PO 08/23/24 10:56 15 mg TID PRN Administration Anxiety Duloxetine HCl 60 mg 07/24/24 21:00 08/06/24 09:48 Duloxetine Hcl 30 Mg Capsule PO 08/23/24 20:59 60 mg BID GHADA Administration Furosemide 40 mg 07/27/24 13:45 08/05/24 21:16 Furosemide 40 Mg Tablet PO 08/26/24 13:44 40 mg BID GHADA Administration Gabapentin 100 mg 07/28/24 09:00 08/06/24 05:36 Gabapentin 100 Mg Capsule PO 08/27/24 08:59 100 mg TID GHADA Administration Lactulose 20 gm 08/03/24 17:00 08/06/24 05:37 Lactulose Syrup 20 Gm/30 Ml Udc PO 09/02/24 16:59 20 gm QID GHADA Administration Protocol Melatonin 3 mg 07/31/24 21:00 08/05/24 21:17 Melatonin 3 Mg Tablet PO 08/30/24 20:59 3 mg HS GHADA Administration Methimazole 5 mg 07/23/24 09:00 08/06/24 09:49 Methimazole 5 Mg Tablet PO 08/22/24 08:59 5 mg DAILY GHADA Administration Morphine Sulfate 30 mg 08/05/24 11:45 08/06/24 09:50 Morphine Sulf 15 Mg Tabcr PO 08/10/24 11:44 30 mg QDAY GHADA Administration Morphine Sulfate 45 mg 08/05/24 21:00 08/05/24 21:15 Morphine Sulf 15 Mg Tabcr PO 08/10/24 20:59 45 mg HS GHADA Administration Ondansetron HCl 4 mg 07/23/24 15:34 07/23/24 16:49 Ondansetron Inj 2 Mg/Ml Inj 2 Ml IV 08/22/24 15:33 4 mg Q6H PRN Administration NAUSEA OR VOMITING Protocol Pantoprazole Sodium 40 mg 07/24/24 09:00 08/05/24 08:46 Pantoprazole 40 Mg Tablet PO 08/23/24 08:59 40 mg QDAY GHADA Administration Rivaroxaban 20 mg 07/25/24 17:30 08/05/24 16:54 Rivaroxaban 10 Mg Tablet PO 08/24/24 17:29 20 mg WSUPPER GHADA Administration Spironolactone 25 mg 07/25/24 09:00 08/06/24 09:49 Spironolactone 25 Mg Tablet PO 08/24/24 08:59 25 mg QDAY GHADA Administration Ursodiol 300 mg 07/27/24 12:00 08/06/24 05:36 Ursodiol 300 Mg Capsule PO 08/26/24 11:59 300 mg QID GHADA Administration Plan Nneka Burciaga is a 74-year-old female with a past medical history of COPD on 2 L home oxygen, HFpEF (55-60% on 11/2023), a-fib on Xarelto, hypertension, and chronic pain who presented to the ED on 07/22 status-post multiple ground-level falls at home and found to have enlarged CBD on imaging, admitted for further work-up. #Enlarged CBD #History of cholecystectomy #Transaminitis #Hyperbilirubinemia #Biliary stricture s/p stent No fever, chills, nausea, vomiting, abdominal pain, change in bowel habits. Gallbladder ultrasound: Enlarged CBD 1.2 cm. MRCP: Extrahepatic biliary tract dilatation with abrupt termination at distal CBD. HIDA scan showed a large common hepatic and CBD, although contrast in small bowel. ERCP 08/01: upper third of main bile duct markedly dilated secondary to stricture and middle third of main bile duct contained single moderate stenosis; biliary sphincterotomy made and 1 stent 1 internal flap placed in CBD Zosyn (07/27-08/05) and vancomycin (07/28-08/05) ? GI consulted, appreciate recommendations ? Repeat blood culture 08/01: NGTD ? Augmentin 875 mg twice daily (08/05-) ? Will need repeat ERCP with [facility] outpatient to examine CBD and with possible biopsy ? Ursodiol 300 mg p.o. q6h #Leukocytosis, reactive vs inflammatory vs infective process, improving Repeat CT A/P showed edema around pancreas, pneumobilia, bibasilar pneumonia with small pleural effusions. Repeat HIDA scan showed isotope activity in small bowel without enlargement of common hepatic or common bile duct. Suspect to be reactive or irritation to pancreas as seen on repeat imaging in setting of recent ERCP. ? GI consulted as above ? ID consulted, appreciate recommendations #Urinary tract infection, resolved UA showed turbid urine, 2+ blood, 23 RBC, WBC 966, 3+ bacteria, hyaline casts present. Repeat UA showed no signs of infection but now with 1+ bilirubin. Zosyn (07/27-08/05) and vancomycin (07/28-08/05), ceftriaxone (07/25-07/27) ? Urine culture: Klebsiella pneumonia #Acute kidney injury, prerenal vs intrarenal, resolved May be due to dehydration vs rhabdomyolysis ? Avoid nephrotoxic agents, renally dose medications ? Encourage increased p.o. intake #Rhabdomyolysis, improving Found down at home after fall, may have been for a couple of hours per history. Initial CK 3500, will continue to trend. ? Received 3 L IVF per sepsis protocol and an additional 1 L afterwards ? Encourage increased p.o. intake #HFpEF (EF 55-60% on 11/2023) Follows-up with Dr. Browning outpatient. Not in exacerbation and not overloaded at this time. BNP 395. Repeat CXR on 08/02 showed interval development of pulmonary edema vs pneumonia ? Cardiology consulted, appreciate recommendations ? Follow-up echo ? Spironolactone 25 mg p.o. daily ? Carvedilol 3.125 mg p.o. BIDWM -> HELD ? Lasix 40 mg IV BID -> HELD ? Strict I's and O's, daily weights, low sodium diet, fliud restriction (1.5 L/day) #Atrial fibrillation, on Xarelto and amiodarone On 07/24, Heart rate noted to be in the 40s and 50s with associated drowsiness, EKG showed sinus bradycardia with first-degree AV block Per cardio recommendations, will decrease amiodarone to 200 mg daily and discontinue Coreg May consider increasing her amiodarone back to her home dose of 200 mg twice daily ? Amiodarone 200 mg p.o. BID ? Xarelto resumed #COPD on 2 L home O2 Does not have any inhalers at home per son. ? Duonebs scheduled #History of hypertension ? Carvedilol as above #Chronic pain ? Gabapentin 100 mg p.o. 3 times daily ? Duloxetine 60 mg p.o. twice daily ? Morphine sulfate 30 mg p.o. in AM and 30 mg p.o. HS ? Goodman 5 q6h prn Hospital management: Disposition: status-post ERCP, increasing WBC, ID and GI following Diet: high calorie/protein diet (1.5 L fluid restriction), ensure Lines: PIV DVT prophylaxis: SCDs GI prophylaxis: pantoprazole 40 mg po daily CODE STATUS: DNR/DNI ----- Plan discussed with attending physician Dr. Mcguire and senior resident physician Dr. Stephani Smith MD PGY-1 Internal Medicine
--- NOTE | 2024-08-06 11:30 | ESPR_ITS ---
RE: HE DELACRUZ : 1950 DATE OF SERVICE: 08/05/2024 SUBJECTIVE: The patient appears to be doing fairly well as he is having significant pain, requiring pain management, history of atrial fibrillation, paroxysmal now appears to be in persistent atrial fibrillation, rates controlled well cardiac lutz, but otherwise stable. Not having any chest pain or shortness of breath. She still has severe leukocytosis though it is improving. The patient has cholestatic jaundice and elevated liver enzymes. Cardiac lutz remains in atrial fibrillation, now rate controlled well with current regimen. Respiratory lutz, she is not having significant shortness of breath or respiratory failure and the patient continues to receive bronchodilators also on methimazole 5 mg daily for hypothyroidism. Continue on Xarelto 20 mg daily with no problems so far, spironolactone 25 mg daily and amiodarone 200 mg twice daily. AFib is rate controlled well so far, not going rapid rates at this moment. OBJECTIVE: Vital Signs: Otherwise her vital signs remain stable, heart rate is about 90 to 100 AFib, blood pressure is 120/70, respirations 18, temperature 97.1, saturating well on nasal cannula 94%. Neck: Supple. Lungs: Decreased breath sounds. Heart: Heart sounds S1, S2 irregular, atrial fibrillation. Abdomen: Slightly distended, soft. No organomegaly. Extremities: Mild edema. Genitourinary and Rectal: Not performed. LABORATORY DATA: Shows significant elevation of white count 30,000 and hemoglobin 10.2 though it is coming down _antibiotic therapy and the chemistry panel showed creatinine 1.2, potassium is normal at 4.3, bilirubin 3.8, AST 162, C-reactive protein 14.9. IMPRESSION: 1. Atrial fibrillation, rate controlled. 2. Heart failure with _preserved ejection fraction stable. 3. Dilated common bile duct with possible stricture, rule out malignancy, ERCP was performed as per GI, another ERCP with [facility] apparently was recommended to examine the common bile duct for possible site of the stricture and possible malignancy underlying. RECOMMENDATIONS: Continue present regimen for AFib, for now rate controlled reasonably well. If the patient's heart rate increases, we will add a small dose of beta-nathen as well. DT: 08:53:18 TT: 11:18:00 Ref: [id number] - TID: [id number] MTDD
--- NOTE | 2024-08-06 13:45 | ESPR_ITS ---
<Statement entered by Jason Browning MD - 08/07/24 20:09> The patient was examined personally doing fairly well except quite lethargic white count remains elevated A-fib rate controlled will evaluate the patient with resident physician agree with treatment plan recommendation as documented with PGY 3 Documentation for date of: 08/06/24 Subjective Subjective Interval history: patient was examined bedside in the afternoon , she was lethargic . WBC count going up . Exam Vital Signs Temp Pulse Resp BP Pulse Ox O2 Del Method O2 Flow Rate 97.2 F 111 H 29 H 124/76 92 L Nasal Cannula 4 08/07/24 13:27 08/07/24 13:27 08/07/24 13:27 08/07/24 13:08/07/24 13:08/07/24 13:08/07/24 13:27 Narrative Exam GENERAL: Adul female seen resting in hospital bed, on 5L ofo2 , HEENT: Normocephalic, atraumatic. Pupils are equal and reactive. Oral mucosa is moist. NECK: Supple, nontender, no JVD CHEST: Symmetrical, atraumatic and with equal expansion ,Nontender on palpation CARDIOVASCULAR: S1/S2. no murmur or gallop rub or extra beats. LUNGS: Bilateral crackles ABDOMEN: Soft, flat, nontender to palpation, no guarding or rebound tenderness. Active and normal bowel sounds. EXTREMITIES:Moves all 4 extremities,No B/L LE edema. SKIN: Warm and dry, no jaundice or rashes noted. NEURO: Patient is AO x 3, Cranial nerves II through XII grossly intact. There is no focal neurologic deficits noted. she is very lethargic PSYCHIATRIC: She is very lethargic Objective Labs 08/07/24 04:51 08/07/24 04:51 Labs: Laboratory Results - last 24 hr 08/07/24 08/07/24 04:51 10:50 WBC 28.9 H RBC 3.60 L Hgb 10.2 L Hct 29.6 L MCV 82 MCH 28.3 MCHC 34.5 RDW Std Deviation 50.2 H Plt Count 546 H Neut % (Auto) 82 H Lymph % (Auto) 4 L [place] % (Auto) 11 Eos % (Auto) 0 Baso % (Auto) 0 Neut # (Auto) 23.8 H Lymph # (Auto) 1.0 [place] # (Auto) 3.2 H Eos # (Auto) 0.1 Baso # (Auto) 0.1 Immature Gran # (Auto) 0.70 H Absolute Nucleated RBC 0.00 Immature Gran % 2 H Nucleated RBC % 0 Sodium 134 L Potassium 4.7 Chloride 96 L Carbon Dioxide 30.1 Anion Gap 8 BUN 31 H Creatinine 1.1 Estim Creat Clear Calc 51.6 L eGFR 52 L BUN/Creatinine Ratio 28 H Glucose 84 Calculated Osmolality 273 L Calcium 8.8 Corrected Calcium 9.9 Phosphorus 3.9 Magnesium 2.4 Total Bilirubin 3.8 H AST 250 H ALT 119 H Alkaline Phosphatase 339 H D Total Protein 6.3 Albumin 2.6 L Globulin 3.7 H Albumin/Globulin Ratio 0.7 L Lipase 24 Coccidioides IgM Ab Negative Hepatitis C Antibody Non Reactive Quality Measures Quality Measures none Advance care planning discussed with:: patient Assessment & Plan Assessment Current Active Medications: Generic Name Dose Route Start Last Admin Trade Name Freq PRN Reason Stop Dose Admin Acetaminophen 650 mg 07/23/24 15:30 08/05/24 11:19 Acetaminophen 325 Mg Tablet PO 08/22/24 15:29 650 mg Q6H PRN Administration PAIN OR FEVER > 100.4 Protocol Albuterol/Ipratropium 3 ml 07/27/24 13:32 07/29/24 09:21 Albuterol/Ipratropium (Duoneb) Rt Lauren 3 Ml Nebu INH 08/24/24 08:44 3 ml Q4HRRT PRN Administration wheezing, shortness of breath Amiodarone HCl 200 mg 07/31/24 21:00 08/07/24 08:40 Amiodarone Hcl 200 Mg Tablet PO 08/30/24 20:59 200 mg BID GHADA Administration Buspirone HCl 15 mg 07/24/24 10:57 07/30/24 13:25 Buspirone Hcl 5 Mg Tablet PO 08/23/24 10:56 15 mg TID PRN Administration Anxiety Duloxetine HCl 60 mg 07/24/24 21:00 08/07/24 08:40 Duloxetine Hcl 30 Mg Capsule PO 08/23/24 20:59 60 mg BID GHADA Administration Furosemide 40 mg 07/27/24 13:45 08/05/24 21:16 Furosemide 40 Mg Tablet PO 08/26/24 13:44 40 mg BID GHADA Administration Gabapentin 100 mg 07/28/24 09:00 08/07/24 05:12 Gabapentin 100 Mg Capsule PO 08/27/24 08:59 Not Given TID GHADA Sodium Chloride 1,000 mls @ 75 mls/hr 08/07/24 10:11 08/07/24 11:16 Ns IV 09/06/24 10:10 75 mls/hr .[id number] GHADA Administration Lactulose 20 gm 08/03/24 17:00 08/07/24 11:38 Lactulose Syrup 20 Gm/30 Ml Udc PO 09/02/24 16:59 Not Given QID GHADA Protocol Melatonin 3 mg 07/31/24 21:00 08/06/24 21:15 Melatonin 3 Mg Tablet PO 08/30/24 20:59 Not Given HS GHADA Methimazole 5 mg 07/23/24 09:00 08/06/24 09:49 Methimazole 5 Mg Tablet PO 08/22/24 08:59 5 mg DAILY GHADA Administration Morphine Sulfate 30 mg 08/05/24 11:45 08/07/24 11:13 Morphine Sulf 15 Mg Tabcr PO 08/10/24 11:44 Not Given QDAY GHADA Morphine Sulfate 15 mg 08/06/24 21:00 08/06/24 21:40 Morphine Sulf 15 Mg Tabcr PO 08/11/24 20:59 Not Given HS GHADA Ondansetron HCl 4 mg 07/23/24 15:34 07/23/24 16:49 Ondansetron Inj 2 Mg/Ml Inj 2 Ml IV 08/22/24 15:33 4 mg Q6H PRN Administration NAUSEA OR VOMITING Protocol Pantoprazole Sodium 40 mg 07/24/24 09:00 08/05/24 08:46 Pantoprazole 40 Mg Tablet PO 08/23/24 08:59 40 mg QDAY GHADA Administration Rivaroxaban 20 mg 07/25/24 17:30 08/06/24 16:49 Rivaroxaban 10 Mg Tablet PO 08/24/24 17:29 20 mg WSUPPER GHADA Administration Spironolactone 25 mg 07/25/24 09:00 08/07/24 08:41 Spironolactone 25 Mg Tablet PO 08/24/24 08:59 25 mg QDAY GHADA Administration Ursodiol 300 mg 07/27/24 12:00 08/07/24 11:41 Ursodiol 300 Mg Capsule PO 08/26/24 11:59 300 mg QID GHADA Administration Plan 74-year-old female with past medical history of COPD on 2L home o2 , CHF last echo on 2020 showed ejection fraction of 50 to 55%, A-fib on anticoagulation xarelto chronic back pain, hypertension came to the ED with chief complaint of fall. In the ED ultrasound showed CBD 1.27 cm MRCP was done which showed abnormal Abnormal extra hepatic biliary tract dilatation with abrupt termination of the distal common bile duct, differential would include malignant neoplasm at the ampulla. Cervical CT was negative for any fracture, head CT was negative for any fracture, his CT was negative for any fracture, lumbar thoracic spine CT?negative for any fracture. Initial vitals BP?115/57, P?60, RR?18, temperature?98. labs-WBC?24.9, hemoglobin?11.6, HCT?35.8,ESR- 86, na-133,cr-1.6 , total bilirubin?2.3, AST?134, ALT?54, alk phos?137, total creatinine 3532, troponin negative, CRP 12.4, BNP 395. Dr. Carrillo is planning to do ERCP. Cardiology consulted for management of fluids in the setting of rhabdo. #HFpEF 55-60%. -BNP -395 -Echo- (11/20/2023) Normal LV size and function. .Diastolic function present but cannot grade due to AFib. Estimated EF 55-60%, Normal RV size and function. Mild TR. Trace MR. -home meds coreg ,spironalactone, Lasix. -patient received 2L of fluid in ED for Sepsis and Rhabdo , currently on 125 ml/hr of NS , continue the maintainance fluid as she is not heart failure with reduced EF . and currently not on heart failure . 07/24/24: bed side her HR was in between 47-55 , she was drowsy . EKG showed sinus abel with first degree AV block , will decrease Amio to 200 Q day and discontinue coreg. He CK has decreased . pending Dr Carrillo reccs for ERCP. 07/25/2024: her heart rate is currently in 80s , continue to hold coreg . she is complaining of generalized pain in her body , primary team has decreased the dose of her morphine. 07/26/24: she is pending transfer for ERCP with [facility] as per Dr. Carrillo if she is not able to transfer by Monday then he will do ERCP in the hospital. Earlier her heart rate was in 50s they held the amiodarone and her heart rate went up to 100 so amiodarone Q day was given. 07/27/2024: Patient developed new onset bilateral lower extremity swelling and would be benefit from resuming her home Lasix in addition to her spironolactone. Plan:- continue holding coreg.- resume home Lasix. 07/29/2024:Continue Lasix and amiodarone for now. Pending ERCP by Dr. Carrillo 07/30/2024: she was scheduled to do ERCP today , which is scheduled on , hold xarelto prior to procedure. 07/31/2024: no acute overnight event. The heart rate is in between 90s. She is having ERCP tomorrow. Xarelto on hold 08/01/2024: ERCP done today , can resume xarelto tmorrow. 08/02/2024: Patient was examined bedside this morning, she had ERCP done yesterday. Heart rate between 80s to 90s. Continue amiodarone her white count elevated today primary team ordered a CT scan. 08/06/2024: patient was examined bedside in the afternoon , she was lethargic . WBC count going up . Continue Amiodarone 200 bid #A-fib. - chadsvac score- 5 -she is amiodarone 200 bid -coreg- 6.25 bid - on xarelto -07/24/24: will DC coreg for now in setting of bradycardia and change amio to Q day . -07/25/24: continue amio 200 q day. -07/26/24: continue amio 200 q day. Plan: - Continue amiodarone 200 mg BID and Xarelto Management of other problems as per primary team. Case discussed with my attending Dr Browning. Safia Alanis MD,PGY-3
[2024-08-06] MEDS: SODIUM CHLORIDE 0.9% 500 ML 500 ML 80 ML IV (14:35)
--- NOTE | 2024-08-06 14:52 | PC.NURSE ---
Spot check blood sugar check 100 due to patient being lethargic. Caregiver at bedside. Patient is alert and oriented x3.
--- NOTE | 2024-08-06 15:28 | PC.NURSE ---
Spoke to Dr. Smith of patients condition being lethargic but alert and oriented x3, slow to answer and respond. Will continue to monitor.
--- NOTE | 2024-08-06 15:55 | PC.SS ---
Rounding note: pending Dr. Gallo recommendations for oral antibiotics. Ebonie at [facility] was updated.
[2024-08-06] MEDS: RIVAROXABAN 10 MG TABLET 20 MG PO (16:49)
--- NOTE | 2024-08-06 21:55 | PC.NURSE ---
MD Tapia made aware that pt is very lethargic, she will open her eyes and go back to sleep, unable to administer her PO meds DT unable to swallow her pills.Per MD will come and checked the pts.
[2024-08-07] VITALS (14 sets, daily range): BP systolic 114–136; BP diastolic 74–90; PULSE 64–115; RESP 16–29; TEMP 36.1–36.6; O2SAT 92–95; BMI 39.7; BMI 12.0
[2024-08-07] MEDS: ursodioL 300 MG CAPSULE PO ×4 (05:12→21:19)
[2024-08-07 05:34] LABS: Basophils # (Auto) 0.1 Thou/mm3 (0.0-0.2); Basophils % (Auto) 0 % (0-2.5); Eosinophils # (Auto) 0.1 Thou/mm3 (0.0-0.5); Eosinophils % (Auto) 0 % (0-10); Hematocrit 29.6 % (36.0-46.0); Hemoglobin 10.2 g/dL (12.0-16.0); Immature Granulocytes % (Auto) 2 % (0-0); Lymphocytes % (Auto) 4 % (10-50); Mean Corpuscular HGB Conc 34.5 g/dl (31.0-37.0); Mean Corpuscular Hemoglobin 28.3 pg (25.0-35.0); Mean Corpuscular Volume 82 fL (80-100); Monocytes # (Auto) 3.2 Thou/mm3 (0.0-0.8); Monocytes % (Auto) 11 % (0-12); Neutrophils # (Auto) 23.8 Thou/mm3 (1.8-7.7); Neutrophils % (Auto) 82 % (37-80); Nucleated Red Blood Cell % 0 /100 WBC (0); Platelet Count 546 Thou/mm3 (140-440); RDW Standard Deviation 50.2 fL (36.4-46.3); White Blood Count 28.9 Thou/mm3 (3.6-11.0)
[2024-08-07 06:14] LABS: Alanine Aminotransferase 119 U/L (10-49); Albumin, Serum 2.6 gm/dL (3.4-4.8); Albumin/Globulin Ratio 0.7 (1.2-2.2); Alkaline Phosphatase 339 U/L (46-116); Anion Gap 8 (7-16); Aspartate Amino Transferase 250 U/L (0-34); BUN/Creatinine Ratio 28 Ratio (12-20); Bilirubin,Total 3.8 mg/dL (0.3-1.2); Blood Urea Nitrogen 31 mg/dL (9-23); Calcium 8.8 mg/dL (8.3-10.6); Calcium (Corrected) 9.9 mg/dL (8.5-10.1); Carbon Dioxide 30.1 mMol/L (20.0-31.0); Chloride 96 mMol/L (98-107); Creatinine (Component) 1.1 mg/dL (0.6-1.3); Estimated Creatinine Clearance 51.6 mL/min (>60); Globulin 3.7 gm/dL (2.3-3.5); Glucose 84 mg/dL (74-106); Magnesium 2.4 mg/dL (1.6-2.6); Osmolality,Calculated 273 (275-295); Phosphorous 3.9 mg/dL (2.4-5.1); Potassium 4.7 mMol/L (3.4-5.1); Sodium 134 mMol/L (136-145); Total Protein 6.3 gm/dL (5.7-8.2); eGFR 52 See Note
[2024-08-07] MEDS: AMOXICILLIN/POT CLAV 875 TABLET 1 TAB PO (08:40)
[2024-08-07] MEDS: DULoxetine HCL 30 MG CAPSULE 60 MG PO ×2 (08:40→21:18)
[2024-08-07] MEDS: AMIODARONE HCL 200 MG TABLET PO ×2 (08:40→21:18)
[2024-08-07] MEDS: SPIRONOLACTONE 25 MG TABLET PO (08:41)
[2024-08-07 08:54] LABS: Hepatitis C Antibody Non Reactive (Non React)
--- NOTE | 2024-08-07 10:34 | ESPR_ITS ---
<Statement entered by Loly Mcguire MD - 08/12/24 14:40> I reviewed above note and agree with findings and plans. I have also personally examined the patient with medicine team and went over assessment and plan with medical team including product development intern and resident physician. Documentation for date of: 08/07/24 Subjective Subjective Interval history: No acute overnight events noted. Seen and examined at bedside and patient appears to be more encephalopathic compared to prior as it takes her multiple attempts to answer questions. However, she will eventually able to state her name, birthdate, place, and year. Given lack of clinical improvement, underwent CT C/A/P that showed vascular congestion with diffuse pulmonary edema, pneumonia of the right middle lobe biliary stent in satisfactory position, signs of pancreatitis. Also ordered C. difficile, cocci, lipase, changed antibiotics to zosyn and azithromycin. ID saw patient today and suspecting CHF vs pneumonia. Exam Vital Signs Temp Pulse Resp BP Pulse Ox O2 Del Method O2 Flow Rate 97.1 F 115 H 19 114/76 93 L Nasal Cannula 4 08/07/24 08:00 08/07/24 08:41 08/07/24 08:00 08/07/24 08:41 08/07/24 08:00 08/07/24 08:00 08/07/24 08:00 Narrative Exam General: sleepy/lethargic to answer questions but is oriented to self, birthdate, year, and place, mild distress from pain HEENT: dry mucous membranes, NC/AT, bilateral sclera anicteric Cardiovascular: regular rate and rhythm, S1/S2 present, no murmurs appreciated Pulmonary: bibasilar crackles appreciated, no rales/rhonchi Abdominal: obese soft, non-tender, non-distended, no rebound/guarding, normal bowel sounds present Musculoskeletal: normal ROM, no peripheral edema Skin: chronic venous stasis changes, warm and dry, intact, no rashes Objective Labs 08/07/24 04:51 08/07/24 04:51 Labs: Laboratory Results - last 24 hr 08/07/24 04:51 WBC 28.9 H RBC 3.60 L Hgb 10.2 L Hct 29.6 L MCV 82 MCH 28.3 MCHC 34.5 RDW Std Deviation 50.2 H Plt Count 546 H Neut % (Auto) 82 H Lymph % (Auto) 4 L [place] % (Auto) 11 Eos % (Auto) 0 Baso % (Auto) 0 Neut # (Auto) 23.8 H Lymph # (Auto) 1.0 [place] # (Auto) 3.2 H Eos # (Auto) 0.1 Baso # (Auto) 0.1 Immature Gran # (Auto) 0.70 H Absolute Nucleated RBC 0.00 Immature Gran % 2 H Nucleated RBC % 0 Sodium 134 L Potassium 4.7 Chloride 96 L Carbon Dioxide 30.1 Anion Gap 8 BUN 31 H Creatinine 1.1 Estim Creat Clear Calc 51.6 L eGFR 52 L BUN/Creatinine Ratio 28 H Glucose 84 Calculated Osmolality 273 L Calcium 8.8 Corrected Calcium 9.9 Phosphorus 3.9 Magnesium 2.4 Total Bilirubin 3.8 H AST 250 H ALT 119 H Alkaline Phosphatase 339 H D Total Protein 6.3 Albumin 2.6 L Globulin 3.7 H Albumin/Globulin Ratio 0.7 L Hepatitis C Antibody Non Reactive Quality Measures Quality Measures none Advance care planning discussed with:: patient Assessment & Plan Assessment Current Active Medications: Generic Name Dose Route Start Last Admin Trade Name Freq PRN Reason Stop Dose Admin Acetaminophen 650 mg 07/23/24 15:30 08/05/24 11:19 Acetaminophen 325 Mg Tablet PO 08/22/24 15:29 650 mg Q6H PRN Administration PAIN OR FEVER > 100.4 Protocol Albuterol/Ipratropium 3 ml 07/27/24 13:32 07/29/24 09:21 Albuterol/Ipratropium (Duoneb) Rt Lauren 3 Ml Nebu INH 08/24/24 08:44 3 ml Q4HRRT PRN Administration wheezing, shortness of breath Amiodarone HCl 200 mg 07/31/24 21:00 08/07/24 08:40 Amiodarone Hcl 200 Mg Tablet PO 08/30/24 20:59 200 mg BID GHADA Administration Amoxicillin/Clavulanate Potassium 1 tab 08/05/24 11:35 08/07/24 08:40 Amoxicillin/Pot Clav 875 Tablet PO 08/07/24 11:34 1 tab BID GHADA Administration Buspirone HCl 15 mg 07/24/24 10:57 07/30/24 13:25 Buspirone Hcl 5 Mg Tablet PO 08/23/24 10:56 15 mg TID PRN Administration Anxiety Duloxetine HCl 60 mg 07/24/24 21:00 08/07/24 08:40 Duloxetine Hcl 30 Mg Capsule PO 08/23/24 20:59 60 mg BID GHADA Administration Furosemide 40 mg 07/27/24 13:45 08/05/24 21:16 Furosemide 40 Mg Tablet PO 08/26/24 13:44 40 mg BID GHADA Administration Gabapentin 100 mg 07/28/24 09:00 08/07/24 05:12 Gabapentin 100 Mg Capsule PO 08/27/24 08:59 Not Given TID GHADA Sodium Chloride 1,000 mls @ 75 mls/hr 08/07/24 10:11 Ns IV 09/06/24 10:10 .[id number] GHADA Lactulose 20 gm 08/03/24 17:00 08/07/24 05:12 Lactulose Syrup 20 Gm/30 Ml Udc PO 09/02/24 16:59 Not Given QID GHADA Protocol Melatonin 3 mg 07/31/24 21:00 08/06/24 21:15 Melatonin 3 Mg Tablet PO 08/30/24 20:59 Not Given HS GHADA Methimazole 5 mg 07/23/24 09:00 08/06/24 09:49 Methimazole 5 Mg Tablet PO 08/22/24 08:59 5 mg DAILY GHADA Administration Morphine Sulfate 30 mg 08/05/24 11:45 08/06/24 09:50 Morphine Sulf 15 Mg Tabcr PO 08/10/24 11:44 30 mg QDAY GHADA Administration Morphine Sulfate 15 mg 08/06/24 21:00 08/06/24 21:40 Morphine Sulf 15 Mg Tabcr PO 08/11/24 20:59 Not Given HS GHADA Ondansetron HCl 4 mg 07/23/24 15:34 07/23/24 16:49 Ondansetron Inj 2 Mg/Ml Inj 2 Ml IV 08/22/24 15:33 4 mg Q6H PRN Administration NAUSEA OR VOMITING Protocol Pantoprazole Sodium 40 mg 07/24/24 09:00 08/05/24 08:46 Pantoprazole 40 Mg Tablet PO 08/23/24 08:59 40 mg QDAY GHADA Administration Rivaroxaban 20 mg 07/25/24 17:30 08/06/24 16:49 Rivaroxaban 10 Mg Tablet PO 08/24/24 17:29 20 mg WSUPPER GHADA Administration Spironolactone 25 mg 07/25/24 09:00 08/07/24 08:41 Spironolactone 25 Mg Tablet PO 08/24/24 08:59 25 mg QDAY GHADA Administration Ursodiol 300 mg 07/27/24 12:00 08/07/24 05:12 Ursodiol 300 Mg Capsule PO 08/26/24 11:59 300 mg QID GHADA Administration Plan Nneka Burciaga is a 74-year-old female with a past medical history of COPD on 2 L home oxygen, HFpEF (55-60% on 11/2023), a-fib on Xarelto, hypertension, and chronic pain who presented to the ED on 07/22 status-post multiple ground-level falls at home and found to have enlarged CBD on imaging, admitted for further work-up. #Acute encephalopathy secondary to infectious process vs delirium Oriented x3 but takes multiple times to ask questions to get answers and appears lethargic at bedside. Ordered ramirez CT with findings of pneumonia and fluid overload but no significant changes from CT A/P taken on 08/02. Patient has becoming weaker as well and has been in the same location for many days in a row at this time, suspect component of delirium. ? Follow-up ammonia ? Reorient patient frequently, lights on during day and off during night, encourage family to reorient when possible ? Consider CT head if no improvement #Right middle lobe pneumonia #Leukocytosis, reactive vs inflammatory vs infective process, improving CT C/A/P 08/07 showed vascular congestion with diffuse pulmonary edema, pneumonia of the right middle lobe biliary stent in satisfactory position, signs of pancreatitis, right thyromegaly with multiple bilateral thyroid nodules. CT A/P 08/02 showed edema around pancreas, pneumobilia, bibasilar pneumonia with small pleural effusions. Repeat HIDA scan showed isotope activity in small bowel without enlargement of common hepatic or common bile duct. Zosyn (07/27-08/05, 08/07-), vancomycin (07/28-08/05), Augmentin (08/05-08/07) ? GI consulted as above ? ID consulted, appreciate recommendations ? Zosyn (08/07-) ? Azithromycin (08/07-) ? Follow-up C. difficile, cocci, HCV #Enlarged CBD #History of cholecystectomy #Transaminitis #Hyperbilirubinemia #Biliary stricture s/p stent No fever, chills, nausea, vomiting, abdominal pain, change in bowel habits. Gallbladder ultrasound: Enlarged CBD 1.2 cm. MRCP: Extrahepatic biliary tract dilatation with abrupt termination at distal CBD. HIDA scan showed a large common hepatic and CBD, although contrast in small bowel. ERCP 08/01: upper third of main bile duct markedly dilated secondary to stricture and middle third of main bile duct contained single moderate stenosis; biliary sphincterotomy made and 1 stent 1 internal flap placed in CBD ? GI consulted, appreciate recommendations ? Repeat blood culture 08/01: NGTD ? Will need repeat ERCP with [facility] outpatient to examine CBD and with possible biopsy ? Ursodiol 300 mg p.o. q6h #HFpEF (EF 55-60% on 11/2023) Follows-up with Dr. Browning outpatient. Not in exacerbation and not overloaded at this time. BNP 395. Repeat CXR on 08/02 showed interval development of pulmonary edema vs pneumonia ? Cardiology consulted, appreciate recommendations ? Follow-up echo ? Follow-up BNP ? Spironolactone 25 mg p.o. daily ? Carvedilol 3.125 mg p.o. BIDWM -> HELD ? Lasix 40 mg IV BID ? Strict I's and O's, daily weights, low sodium diet, fliud restriction (1.5 L/day) #Urinary tract infection, resolved UA showed turbid urine, 2+ blood, 23 RBC, WBC 966, 3+ bacteria, hyaline casts present. Repeat UA showed no signs of infection but now with 1+ bilirubin. ? Urine culture: Klebsiella pneumonia #Acute kidney injury, prerenal vs intrarenal, resolved ? Avoid nephrotoxic agents, renally dose medications #Rhabdomyolysis, improving Found down at home after fall, may have been for a couple of hours per history. Initial CK 3500. Received 3 L IVF per sepsis protocol and an additional 1 L afterwards. #Atrial fibrillation, on Xarelto and amiodarone On 07/24, Heart rate noted to be in the 40s and 50s with associated drowsiness, EKG showed sinus bradycardia with first-degree AV block Per cardio recommendations, will decrease amiodarone to 200 mg daily and discontinue Coreg May consider increasing her amiodarone back to her home dose of 200 mg twice daily ? Amiodarone 200 mg p.o. BID ? Xarelto resumed #COPD on 2 L home O2 Does not have any inhalers at home per son. ? Duonebs scheduled #History of hypertension ? Blood pressure within range #Chronic pain ? Gabapentin 100 mg p.o. 3 times daily ? Duloxetine 60 mg p.o. twice daily ? Morphine sulfate 30 mg p.o. in AM and 15 mg p.o. HS ? Bruner 5 q6h prn Hospital management: Disposition: status-post ERCP, increasing WBC, ID and GI following Diet: high calorie/protein diet (1.5 L fluid restriction), ensure Lines: PIV DVT prophylaxis: SCDs GI prophylaxis: pantoprazole 40 mg po daily CODE STATUS: DNR/DNI ----- Plan discussed with attending physician Dr. Maynor Smith MD PGY-1 Internal Medicine
--- NOTE | 2024-08-07 10:38 | XR_ITS ---
Examination: CT chest with intravenous contrast CT abdomen with intravenous contrast CT pelvis with intravenous contrast 2-D coronal and sagittal reconstructions Time of exam: July 30, 2024 11:53 AM Comparison August 02, 2024 INDICATIONS: Leukocytosis, history acute pancreatitis CTDI: vol (mGy) : 14.7 DLP: (mGycm): 1097 Technique: Multiple axial images of the chest, abdomen and pelvis with intravenous contrast, 3.0 mm slice thickness. Images obtained post intravenous injection Isovue 370 60 cc. 2-D sagittal and coronal reconstructions. Low dose protocols were performed. One or more of the following dose reduction techniques were used; automated exposure control, adjustment of the mA and/or KV according to patient size, use of iterative reconstruction technique. Findings: Enlarged right thyroid lobe with multiple bilateral thyroid nodules No thoracic aortic aneurysm dilatation No pulmonary artery filling defects on this non-CTA study Prominent vascular congestion with diffuse pulmonary edema Prominent pneumonia in the right middle lobe Minimal bilateral pleural disease Mild enlargement cardiac contour Mild intrahepatic biliary tract dilatation Absent gallbladder Biliary stent satisfactory position Edema around the pancreas no pseudocyst Spleen not enlarged No hydronephrosis renal or ureteral calculi No bowel obstruction Normal appendix No diverticulitis Urinary bladder intact Atrophic uterus No adnexal mass Diffuse moderate to advanced thoracic and lumbar degenerative disc disease IMPRESSION: Right thyromegaly with multiple bilateral thyroid nodules, consider dedicated thyroid sonography follow-up Negative for pulmonary artery emboli Mild to moderate CHF Prominent pneumonia in the right middle lobe Mild intrahepatic biliary tract dilatation Absent gallbladder Biliary stent satisfactory position Acute pancreatitis, no pancreatic pseudocyst Normal appendix No bowel obstruction No abdominal or pelvic abscess
[2024-08-07] MEDS: SODIUM CHLORIDE 0.9% 1000 ML 1,000 ML 75 ML IV (11:16)
[2024-08-07 11:49] LABS: Lipase 24 U/L (12-53)
[2024-08-07 13:10] LABS: Cocci Serology, IgM Negative (Negative)
--- NOTE | 2024-08-07 13:52 | ESPR_ITS ---
<Statement entered by Jason Brownign MD - 08/07/24 19:57> The patient is evaluated by me personally examined the patient along with resident physician PGY 3 Dr. Alanis and the patient is not doing well mentally obtunded has jaundice bilirubin is slowly going up alkaline phos was also high obstructive jaundice is present patient white count remains high cardiac lutz stable is some edema but cardiac echo showed preserved ejection fraction her problems appear to be not due to heart failure. She remains in atrial fibrillation rate controlled well slow on the faster side we will add a small dose of beta-nathen carvedilol 3.125 mg twice daily. Patient appears to be not doing that well despite antibiotic there is different underlying infectious process as obstructive jaundice gastroenterology plans are unclear at this time. Will continue to monitor cardiac status with primary team Documentation for date of: 08/07/24 Subjective Subjective Interval history: Patient was examined bedside this afternoon, she is very lethargic, white count is going up today its 28.9 , primary team has ordered CT Scan , will follow up . Exam Vital Signs Temp Pulse Resp BP Pulse Ox O2 Del Method O2 Flow Rate 97.2 F 111 H 29 H 124/76 92 L Nasal Cannula 4 08/07/24 13:27 08/07/24 13:27 08/07/24 13:27 08/07/24 13:27 08/07/24 13:27 08/07/24 13:27 08/07/24 13:27 Narrative Exam GENERAL: Adul female seen resting in hospital bed, on 5L ofo2 , HEENT: Normocephalic, atraumatic. Pupils are equal and reactive. Oral mucosa is moist. NECK: Supple, nontender, no JVD CHEST: Symmetrical, atraumatic and with equal expansion ,Nontender on palpation CARDIOVASCULAR: S1/S2. no murmur or gallop rub or extra beats. LUNGS: Bilateral crackles ABDOMEN: Soft, flat, nontender to palpation, no guarding or rebound tenderness. Active and normal bowel sounds. EXTREMITIES:Moves all 4 extremities, b/l hands 2+ edema. SKIN: Warm and dry, no jaundice or rashes noted. NEURO: Patient is AO x 3, Cranial nerves II through XII grossly intact. There is no focal neurologic deficits noted. she is very lethargic PSYCHIATRIC: She is very lethargic Objective Labs 08/07/24 04:51 08/07/24 04:51 Labs: Laboratory Results - last 24 hr 08/07/24 08/07/24 04:51 10:50 WBC 28.9 H RBC 3.60 L Hgb 10.2 L Hct 29.6 L MCV 82 MCH 28.3 MCHC 34.5 RDW Std Deviation 50.2 H Plt Count 546 H Neut % (Auto) 82 H Lymph % (Auto) 4 L [place] % (Auto) 11 Eos % (Auto) 0 Baso % (Auto) 0 Neut # (Auto) 23.8 H Lymph # (Auto) 1.0 [place] # (Auto) 3.2 H Eos # (Auto) 0.1 Baso # (Auto) 0.1 Immature Gran # (Auto) 0.70 H Absolute Nucleated RBC 0.00 Immature Gran % 2 H Nucleated RBC % 0 Sodium 134 L Potassium 4.7 Chloride 96 L Carbon Dioxide 30.1 Anion Gap 8 BUN 31 H Creatinine 1.1 Estim Creat Clear Calc 51.6 L eGFR 52 L BUN/Creatinine Ratio 28 H Glucose 84 Calculated Osmolality 273 L Calcium 8.8 Corrected Calcium 9.9 Phosphorus 3.9 Magnesium 2.4 Total Bilirubin 3.8 H AST 250 H ALT 119 H Alkaline Phosphatase 339 H D Total Protein 6.3 Albumin 2.6 L Globulin 3.7 H Albumin/Globulin Ratio 0.7 L Lipase 24 Coccidioides IgM Ab Negative Hepatitis C Antibody Non Reactive Quality Measures Quality Measures none Advance care planning discussed with:: patient Assessment & Plan Assessment Current Active Medications: Generic Name Dose Route Start Last Admin Trade Name Freq PRN Reason Stop Dose Admin Acetaminophen 650 mg 07/23/24 15:30 08/05/24 11:19 Acetaminophen 325 Mg Tablet PO 08/22/24 15:29 650 mg Q6H PRN Administration PAIN OR FEVER > 100.4 Protocol Albuterol/Ipratropium 3 ml 07/27/24 13:32 07/29/24 09:21 Albuterol/Ipratropium (Duoneb) Rt Lauren 3 Ml Nebu INH 08/24/24 08:44 3 ml Q4HRRT PRN Administration wheezing, shortness of breath Amiodarone HCl 200 mg 07/31/24 21:00 08/07/24 08:40 Amiodarone Hcl 200 Mg Tablet PO 08/30/24 20:59 200 mg BID GHADA Administration Buspirone HCl 15 mg 07/24/24 10:57 07/30/24 13:25 Buspirone Hcl 5 Mg Tablet PO 08/23/24 10:56 15 mg TID PRN Administration Anxiety Duloxetine HCl 60 mg 07/24/24 21:00 08/07/24 08:40 Duloxetine Hcl 30 Mg Capsule PO 08/23/24 20:59 60 mg BID GHADA Administration Furosemide 40 mg 07/27/24 13:45 08/05/24 21:16 Furosemide 40 Mg Tablet PO 08/26/24 13:44 40 mg BID GHADA Administration Gabapentin 100 mg 07/28/24 09:00 08/07/24 05:12 Gabapentin 100 Mg Capsule PO 08/27/24 08:59 Not Given TID GHADA Sodium Chloride 1,000 mls @ 75 mls/hr 08/07/24 10:11 08/07/24 11:16 Ns IV 09/06/24 10:10 75 mls/hr .[id number] GHADA Administration Lactulose 20 gm 08/03/24 17:00 08/07/24 11:38 Lactulose Syrup 20 Gm/30 Ml Udc PO 09/02/24 16:59 Not Given QID GHADA Protocol Melatonin 3 mg 07/31/24 21:00 08/06/24 21:15 Melatonin 3 Mg Tablet PO 08/30/24 20:59 Not Given HS GHADA Methimazole 5 mg 07/23/24 09:00 08/06/24 09:49 Methimazole 5 Mg Tablet PO 08/22/24 08:59 5 mg DAILY GHADA Administration Morphine Sulfate 30 mg 08/05/24 11:45 08/07/24 11:13 Morphine Sulf 15 Mg Tabcr PO 08/10/24 11:44 Not Given QDAY GHADA Morphine Sulfate 15 mg 08/06/24 21:00 08/06/24 21:40 Morphine Sulf 15 Mg Tabcr PO 08/11/24 20:59 Not Given HS GHADA Ondansetron HCl 4 mg 07/23/24 15:34 07/23/24 16:49 Ondansetron Inj 2 Mg/Ml Inj 2 Ml IV 08/22/24 15:33 4 mg Q6H PRN Administration NAUSEA OR VOMITING Protocol Pantoprazole Sodium 40 mg 07/24/24 09:00 08/05/24 08:46 Pantoprazole 40 Mg Tablet PO 08/23/24 08:59 40 mg QDAY GHADA Administration Rivaroxaban 20 mg 07/25/24 17:30 08/06/24 16:49 Rivaroxaban 10 Mg Tablet PO 08/24/24 17:29 20 mg WSUPPER GHADA Administration Spironolactone 25 mg 07/25/24 09:00 08/07/24 08:41 Spironolactone 25 Mg Tablet PO 08/24/24 08:59 25 mg QDAY GHADA Administration Ursodiol 300 mg 07/27/24 12:00 08/07/24 11:41 Ursodiol 300 Mg Capsule PO 08/26/24 11:59 300 mg QID GHADA Administration Plan 74-year-old female with past medical history of COPD on 2L home o2 , CHF last echo on 2020 showed ejection fraction of 50 to 55%, A-fib on anticoagulation xarelto chronic back pain, hypertension came to the ED with chief complaint of fall. In the ED ultrasound showed CBD 1.27 cm MRCP was done which showed abnormal Abnormal extra hepatic biliary tract dilatation with abrupt termination of the distal common bile duct, differential would include malignant neoplasm at the ampulla. Cervical CT was negative for any fracture, head CT was negative for any fracture, his CT was negative for any fracture, lumbar thoracic spine CT?negative for any fracture. Initial vitals BP?115/57, P?60, RR?18, temperature?98. labs-WBC?24.9, hemoglobin?11.6, HCT?35.8,ESR- 86, na-133,cr-1.6 , total bilirubin?2.3, AST?134, ALT?54, alk phos?137, total creatinine 3532, troponin negative, CRP 12.4, BNP 395. Dr. Carrillo is planning to do ERCP. Cardiology consulted for management of fluids in the setting of rhabdo. #HFpEF 55-60%. -BNP -395 -Echo- (11/20/2023) Normal LV size and function. .Diastolic function present but cannot grade due to AFib. Estimated EF 55-60%, Normal RV size and function. Mild TR. Trace MR. -home meds coreg ,spironalactone, Lasix. -patient received 2L of fluid in ED for Sepsis and Rhabdo , currently on 125 ml/hr of NS , continue the maintainance fluid as she is not heart failure with reduced EF . and currently not on heart failure . 07/24/24: bed side her HR was in between 47-55 , she was drowsy . EKG showed sinus abel with first degree AV block , will decrease Amio to 200 Q day and discontinue coreg. He CK has decreased . pending Dr Carrillo reccs for ERCP. 07/25/2024: her heart rate is currently in 80s , continue to hold coreg . she is complaining of generalized pain in her body , primary team has decreased the dose of her morphine. 07/26/24: she is pending transfer for ERCP with [facility] as per Dr. Carrillo if she is not able to transfer by Monday then he will do ERCP in the hospital. Earlier her heart rate was in 50s they held the amiodarone and her heart rate went up to 100 so amiodarone Q day was given. 07/27/2024: Patient developed new onset bilateral lower extremity swelling and would be benefit from resuming her home Lasix in addition to her spironolactone. Plan:- continue holding coreg.- resume home Lasix. 07/29/2024:Continue Lasix and amiodarone for now. Pending ERCP by Dr. Carrillo 07/30/2024: she was scheduled to do ERCP today , which is scheduled on , hold xarelto prior to procedure. 07/31/2024: no acute overnight event. The heart rate is in between 90s. She is having ERCP tomorrow. Xarelto on hold 08/01/2024: ERCP done today , can resume xarelto tmorrow. 08/02/2024: Patient was examined bedside this morning, she had ERCP done yesterday. Heart rate between 80s to 90s. Continue amiodarone her white count elevated today primary team ordered a CT scan. 08/06/2024: patient was examined bedside in the afternoon , she was lethargic . WBC count going up . Continue Amiodarone 200 bid 08/07/2024: she is very lethargic, white count is going up today its 28.9 , primary team has ordered CT Scan , will follow up . She is getting NS @75 ml/hr . #A-fib. - chadsvac score- 5 -she is amiodarone 200 bid -coreg- 6.25 bid - on xarelto -07/24/24: will DC coreg for now in setting of bradycardia and change amio to Q day . -07/25/24: continue amio 200 q day. -07/26/24: continue amio 200 q day. Plan: - Continue amiodarone 200 mg BID and Xarelto. Restarted low dose coreg. Management of other problems as per primary team. Case discussed with my attending Dr Browning. Safia Alanis MD,PGY-3
--- NOTE | 2024-08-07 14:55 | PC.SS ---
Addendum entered by GEMMA Faust 08/07/24 15:46: Latest clinicals sent to [facility] via [facility]. Addendum entered by GEMMA Faust 08/07/24 15:44: Patient is pending a CT scan and continues to be lethargic, white count going up. Original Note: Rounding note: patient was upgraded to Tele, anticipate 3-4 days before d/c to [facility]. Updated Ebonie with admissions at [facility] to make aware.
--- NOTE | 2024-08-07 15:35 | ECHO_ITS ---
Transthoracic Echo Report Ht (in): 64 Wt (lb): 233 Exam Location: Echo Lab Status: Inpatient Post Exchange Manager: Julianna Hills Indications: Procedure Performed: BP: 124 / 76 HR: 29 Technical Quality: Technically difficult study MEASUREMENTS (Male / Female) Normal Values 2D ECHO LV Diastolic Diameter PLAX 5.0 cm 4.2 - 5.9 / 3.9 - 5.3 cm LV Systolic Diameter PLAX 3.0 cm IVS Diastolic Thickness 0.8 cm 0.6 - 1.0 / 0.6 - 0.9 cm LVPW Diastolic Thickness 1.3 cm 0.6 - 1.0 / 0.6 - 0.9 cm LV Relative Wall Thickness 0.4 LVOT Diameter 2.1 cm LA Systolic Diameter LX 3.5 cm 3.0 - 4.0 / 2.7 - 3.8 cm LA Volume Index 22.8 cm?/m? 16 - 28 cm?/m? DOPPLER AV Peak Velocity 169.0 cm/s AV Peak Gradient 11.4 mmHg AV Mean Gradient 6.0 mmHg AV Velocity Time Integral 35.2 cm LVOT Peak Velocity 111.0 cm/s LVOT Peak Gradient 4.9 mmHg LVOT Velocity Time Integral 24.1 cm LVOT Cardiac Index 1081.5 cm?/min?m? AV Area Cont Eq vti 2.4 cm? AV Area Cont Eq pk 2.3 cm? MV Area PHT 3.4 cm? MR Peak Velocity 369.0 cm/s MR Peak Gradient 54.5 mmHg Mitral E Point Velocity 106.0 cm/s LV E' Lateral Velocity 6.5 cm/s Mitral E to LV E' Lateral Ratio 16.2 LV E' Septal Velocity 7.5 cm/s Mitral E to LV E' Septal Ratio 14.1 TR Peak Velocity 299.0 cm/s TR Peak Gradient 35.8 mmHg PV Peak Velocity 130.0 cm/s PV Peak Gradient 6.8 mmHg FINDINGS Left Ventricle Normal left ventricular size, wall thickness, systolic function with no obvious regional wall motion abnormalities. Normal left ventricular diastolic filling pattern for age. The ejection fraction is visually estimated at 55-60 %. Right Ventricle The right ventricular size is mildy increased with normal systolic function. The estimated right ventricular systolic pressure, 46 mmHg. RAP 10. Left Atrium The left atrium is normal by two-dimensional, color flow and Doppler imaging with no structural abnormalities, no thrombus formation present. Right Atrium The right atrium is normal by two-dimensional imaging, color flow and Doppler imaging with no structural abnormalities, no thrombus formation present. Atrial Septum The interatrial septum appears normal with no evidence of a shunt. Aorta The aorta is normal by two-dimensional, color flow and Doppler interrogation. Mitral Valve The mitral valve is normal by two-dimensional, color flow and Doppler interrogation. Mild mitral regurgitation. Aortic Valve The aortic valve is trileaflet and normal by two-dimensional, color flow and Doppler interrogation. There is no significant aortic valve regurgitation. Tricuspid Valve The tricuspid valve is normal by two-dimensional, color flow and Doppler interrogation. There is mild tricuspid valve regurgitation. Pulmonic Valve The pulmonic valve is not well visualized. There is no significant pulmonic valve regurgitation. Vessels Normal inferior vena cava (IVC). Pericardium The pericardium is normal by two-dimensional imaging. There is no significant pericardial effusion. CONCLUSIONS Indication: CHF Mildly dilated left atrium. Normal-sized left ventricle with normal left wall thickness wall motion ejection fraction of approximately 60%.. RV size is mildy increased with normal systolic function. The estimated RVSP, 46 mmHg. Mitral valve thickening mild mitral regurgitation. Mild tricuspid regurgitation. No evidence of vegetations. Thu Manzo (Electronically Signed) Final Date: 07 Aug 2024 19:34
--- NOTE | 2024-08-07 15:43 | PD.IDPROG ---
Subjective Subjective Interval history: chf vs pneumonia and encephalopathy with rising bili in this 74 y/o lady. who is a dnr Exam Vital Signs Temp Pulse Resp BP Pulse Ox O2 Del Method O2 Flow Rate 97.2 F 111 H 29 H 124/76 92 L Nasal Cannula 4 08/07/24 13:27 08/07/24 13:27 08/07/24 13:27 08/07/24 13:27 08/07/24 13:27 08/07/24 13:27 08/07/24 13:27 Narrative Exam seems encephalopathic to me. will do w/u for that, but may also have chf. seems that abx are more for wbc than anything. . pt is on O2 and has an abnormal cxr but may have fluid overload too. Objective - Internal Medicine Labs 08/07/24 04:51 08/07/24 04:51 Labs: Laboratory Results - last 24 hr 08/07/24 08/07/24 04:51 10:50 WBC 28.9 H RBC 3.60 L Hgb 10.2 L Hct 29.6 L MCV 82 MCH 28.3 MCHC 34.5 RDW Std Deviation 50.2 H Plt Count 546 H Neut % (Auto) 82 H Lymph % (Auto) 4 L [place] % (Auto) 11 Eos % (Auto) 0 Baso % (Auto) 0 Neut # (Auto) 23.8 H Lymph # (Auto) 1.0 [place] # (Auto) 3.2 H Eos # (Auto) 0.1 Baso # (Auto) 0.1 Immature Gran # (Auto) 0.70 H Absolute Nucleated RBC 0.00 Immature Gran % 2 H Nucleated RBC % 0 Sodium 134 L Potassium 4.7 Chloride 96 L Carbon Dioxide 30.1 Anion Gap 8 BUN 31 H Creatinine 1.1 Estim Creat Clear Calc 51.6 L eGFR 52 L BUN/Creatinine Ratio 28 H Glucose 84 Calculated Osmolality 273 L Calcium 8.8 Corrected Calcium 9.9 Phosphorus 3.9 Magnesium 2.4 Total Bilirubin 3.8 H AST 250 H ALT 119 H Alkaline Phosphatase 339 H D Total Protein 6.3 Albumin 2.6 L Globulin 3.7 H Albumin/Globulin Ratio 0.7 L Lipase 24 Coccidioides IgM Ab Negative Hepatitis C Antibody Non Reactive Assessment & Plan A&P Narrative ordered labs for am. I will be away for a few days, so be sure to have a goals of care discussion as she may not make it to 75 yoa unless the bili stops rising. no overt suggestion of stone in bile ducts but if she passed one, bili should be falling and the opposite appears to be happening. if she has chf. we can manage fluids. if she has encephalopathy we can treat that, so focus may need to be on treatable processes. Time Spent With Patient Time: Total time spent is greater than 50% in coordination of care (as documented) at patient's floor/unit and/or counseling patient:
--- NOTE | 2024-08-07 15:50 | PD.ADDPROG ---
Addendum Progress Note Addendum Date of report being addended: 08/07/24 Narrative: rine is not the answer but it appears that abx only recently started, so will re eval in a few days if she makes it
[2024-08-07] MEDS: LACTULOSE SYRUP 20 GM/30 ML UDC 60 GM PO ×2 (16:00→21:20)
[2024-08-07] MEDS: PIPER/TAZO 3.375 GM PREMIX 3.375 GM/50 ML BAG IV ×2 (16:01→21:19)
[2024-08-07] MEDS: GABAPENTIN 100 MG CAPSULE PO ×2 (16:01→21:40)
[2024-08-07] MEDS: AZITHROMYCIN 250 MG TABLET 500 MG PO (16:01)
[2024-08-07] MEDS: RIVAROXABAN 10 MG TABLET 20 MG PO (17:00)
[2024-08-07] MEDS: Furosemide 40 MG TABLET PO (21:18)
[2024-08-07] MEDS: Morphine Sulf 15 MG TABCR PO (21:19)
[2024-08-07] MEDS: MELATONIN 3 MG TABLET PO (21:40)
[2024-08-08] VITALS (18 sets, daily range): BP systolic 100–147; BP diastolic 52–76; PULSE 71–109; RESP 16–35; TEMP 34.6–37.1; O2SAT 91–992; BMI 12.0
[2024-08-08] MEDS: GABAPENTIN 100 MG CAPSULE PO ×3 (06:04→21:30)
[2024-08-08] MEDS: ursodioL 300 MG CAPSULE PO ×4 (06:04→21:28)
[2024-08-08] MEDS: PIPER/TAZO 3.375 GM PREMIX 3.375 GM/50 ML BAG IV ×3 (06:04→21:28)
[2024-08-08 06:18] LABS: Basophils # (Auto) 0.1 Thou/mm3 (0.0-0.2); Basophils % (Auto) 0 % (0-2.5); Eosinophils % (Auto) 0 % (0-10); Hematocrit 29.2 % (36.0-46.0); Hemoglobin 9.9 g/dL (12.0-16.0); Immature Granulocytes % (Auto) 3 % (0-0); Immature Granulocytes Auto 0.73 Thou/mm3 (0.00-0.00); Lymphocytes # (Auto) 1.2 Thou/mm3 (1.0-4.8); Lymphocytes % (Auto) 5 % (10-50); Mean Corpuscular HGB Conc 33.9 g/dl (31.0-37.0); Mean Corpuscular Hemoglobin 28.7 pg (25.0-35.0); Mean Corpuscular Volume 85 fL (80-100); Monocytes # (Auto) 2.5 Thou/mm3 (0.0-0.8); Monocytes % (Auto) 10 % (0-12); Neutrophils # (Auto) 21.2 Thou/mm3 (1.8-7.7); Neutrophils % (Auto) 82 % (37-80); Nucleated Red Blood Cell % 0 /100 WBC (0); Platelet Count 566 Thou/mm3 (140-440); RDW Standard Deviation 53.1 fL (36.4-46.3); Red Blood Count 3.45 Miln/mm3 (4.00-5.20); White Blood Count 25.8 Thou/mm3 (3.6-11.0)
[2024-08-08 06:24] LABS: Ammonia 15 uMol/L (11-32)
[2024-08-08 06:51] LABS: Alanine Aminotransferase 108 U/L (10-49); Albumin, Serum 2.6 gm/dL (3.4-4.8); Albumin/Globulin Ratio 0.7 (1.2-2.2); Alkaline Phosphatase 310 U/L (46-116); Anion Gap 8 (7-16); Aspartate Amino Transferase 183 U/L (0-34); BUN/Creatinine Ratio 29 Ratio (12-20); Bilirubin,Total 3.3 mg/dL (0.3-1.2); Blood Urea Nitrogen 32 mg/dL (9-23); Calcium 8.8 mg/dL (8.3-10.6); Calcium (Corrected) 9.9 mg/dL (8.5-10.1); Carbon Dioxide 30.4 mMol/L (20.0-31.0); Chloride 101 mMol/L (98-107); Creatinine (Component) 1.1 mg/dL (0.6-1.3); Estimated Creatinine Clearance 51.6 mL/min (>60); Globulin 3.6 gm/dL (2.3-3.5); Glucose 100 mg/dL (74-106); LDH (Lactate Dehydrogenase) 286 U/L (120-246); Magnesium 2.2 mg/dL (1.6-2.6); Osmolality,Calculated 284 (275-295); Phosphorous 2.9 mg/dL (2.4-5.1); Sodium 139 mMol/L (136-145); Thyroid Stimulating Hormone 0.04 uIU/mL (0.55-4.78); Total Protein 6.2 gm/dL (5.7-8.2); eGFR 52 See Note
[2024-08-08 06:55] LABS: Syphilis Nonreactive (Nonreactive)
[2024-08-08 07:01] LABS: B-Type Natriuretic Peptide 448 pg/mL (0-100)
[2024-08-08 07:26] LABS: Folate 5.94 ng/mL (>5.38); Hepatitis A Antibody IgM Non Reactive (Non React); Hepatitis B Core Antibody IgM Non Reactive (Non React); Hepatitis B Surface Antigen Non Reactive (Non React); Hepatitis C Antibody Non Reactive (Non React); Vitamin B12 1185 pg/mL (211-911)
[2024-08-08] MEDS: DULoxetine HCL 30 MG CAPSULE 60 MG PO ×2 (08:31→21:26)
[2024-08-08] MEDS: PANTOPRAZOLE 40 MG TABLET PO (08:32)
[2024-08-08] MEDS: AMIODARONE HCL 200 MG TABLET PO ×2 (08:32→21:27)
[2024-08-08] MEDS: AZITHROMYCIN 250 MG TABLET 500 MG PO (08:32)
[2024-08-08] MEDS: carVEDILOL 3.125 MG TABLET PO ×2 (08:33→16:52)
[2024-08-08] MEDS: Furosemide 40 MG TABLET PO ×2 (08:33→21:27)
[2024-08-08] MEDS: Morphine Sulf 15 MG TABCR PO ×2 (08:34→21:28)
[2024-08-08] MEDS: SPIRONOLACTONE 25 MG TABLET PO (08:36)
--- NOTE | 2024-08-08 11:02 | ESPR_ITS ---
<Statement entered by Jason Browning MD - 08/09/24 17:33> Patient is evaluated by me personally appears to be improving slowly she has history of cholecystectomy now has CBD obstruction due to possible malignancy versus scarring underwent ERCP cholangitis sepsis undergoing IV antibiotics leukocytosis slowly improving patient remains in A-fib rate controlled started on low-dose beta-nathen to control the heart rate continued on diuretic therapy tolerating well heart failure well compensated. Evaluate the patient with resident physician . Dr. Good agree with the treatment plan recommendation will continue to monitor the patient Documentation for date of: 08/08/24 Subjective Subjective Interval history: patient was examined bedside this morning , she is still lethargic . her white count today is 25.8 , Hide total bilirubin is also trending down from 2.8-2.3. Exam Vital Signs Temp Pulse Resp BP Pulse Ox O2 Del Method O2 Flow Rate 97.4 F 99 35 H 116/68 91 L Nasal Cannula 3 08/08/24 08:00 08/08/24 08:36 08/08/24 08:00 08/08/24 08:36 08/08/24 08:00 08/08/24 08:00 08/08/24 08:00 Narrative Exam GENERAL: Adul female seen resting in hospital bed, on 5L ofo2 ,ill looking HEENT: Normocephalic, atraumatic. Pupils are equal and reactive. Oral mucosa is moist. NECK: Supple, nontender, no JVD CHEST: Symmetrical, atraumatic and with equal expansion ,Nontender on palpation CARDIOVASCULAR: S1/S2. no murmur or gallop rub or extra beats. LUNGS: Bilateral crackles ABDOMEN: Soft, flat, nontender to palpation, no guarding or rebound tenderness. Active and normal bowel sounds. EXTREMITIES:Moves all 4 extremities, b/l hands 2+ edema. SKIN: Warm and dry, no jaundice or rashes noted. NEURO: Patient is AO x 3, Cranial nerves II through XII grossly intact. There is no focal neurologic deficits noted. she is very lethargic PSYCHIATRIC: She is very lethargic Objective Labs 08/08/24 05:57 08/08/24 05:57 Labs: Laboratory Results - last 24 hr 08/07/24 08/08/24 10:50 05:57 WBC 25.8 H RBC 3.45 L Hgb 9.9 L Hct 29.2 L MCV 85 MCH 28.7 MCHC 33.9 RDW Std Deviation 53.1 H Plt Count 566 H Neut % (Auto) 82 H Lymph % (Auto) 5 L [place] % (Auto) 10 Eos % (Auto) 0 Baso % (Auto) 0 Neut # (Auto) 21.2 H Lymph # (Auto) 1.2 [place] # (Auto) 2.5 H Eos # (Auto) 0.0 Baso # (Auto) 0.1 Immature Gran # (Auto) 0.73 H Absolute Nucleated RBC 0.00 Immature Gran % 3 H Nucleated RBC % 0 Sodium 139 Potassium 4.0 D Chloride 101 Carbon Dioxide 30.4 Anion Gap 8 BUN 32 H Creatinine 1.1 Estim Creat Clear Calc 51.6 L eGFR 52 L BUN/Creatinine Ratio 29 H Glucose 100 Calculated Osmolality 284 Calcium 8.8 Corrected Calcium 9.9 Phosphorus 2.9 Magnesium 2.2 Total Bilirubin 3.3 H D AST 183 H ALT 108 H Alkaline Phosphatase 310 H D Ammonia 15 Lactate Dehydrogenase 286 H B-Natriuretic Peptide 448 H Total Protein 6.2 Albumin 2.6 L Globulin 3.6 H Albumin/Globulin Ratio 0.7 L Lipase 24 Vitamin B12 1185 H Folate 5.94 TSH 0.04 L* Free T4 1.50 Syphilis Serology Nonreactive Coccidioides IgM Ab Negative Hepatitis A IgM Ab Non Reactive Hep Bs Antigen Non Reactive Hep B Core IgM Ab Non Reactive Hepatitis C Antibody Non Reactive Quality Measures Quality Measures none Advance care planning discussed with:: patient Assessment & Plan Assessment Current Active Medications: Generic Name Dose Route Start Last Admin Trade Name Freq PRN Reason Stop Dose Admin Acetaminophen 650 mg 07/23/24 15:30 08/05/24 11:19 Acetaminophen 325 Mg Tablet PO 08/22/24 15:29 650 mg Q6H PRN Administration PAIN OR FEVER > 100.4 Protocol Albuterol/Ipratropium 3 ml 07/27/24 13:32 07/29/24 09:21 Albuterol/Ipratropium (Duoneb) Rt Lauren 3 Ml Nebu INH 08/24/24 08:44 3 ml Q4HRRT PRN Administration wheezing, shortness of breath Amiodarone HCl 200 mg 07/31/24 21:00 08/08/24 08:32 Amiodarone Hcl 200 Mg Tablet PO 08/30/24 20:59 200 mg BID GHADA Administration Azithromycin 500 mg 05/28/25 15:30 08/08/24 08:32 Azithromycin 250 Mg Tablet PO 08/14/24 15:29 500 mg QDAY GHADA Administration Buspirone HCl 15 mg 07/24/24 10:57 07/30/24 13:25 Buspirone Hcl 5 Mg Tablet PO 08/23/24 10:56 15 mg TID PRN Administration Anxiety Carvedilol 3.125 mg 08/08/24 08:00 08/08/24 08:33 Carvedilol 3.125 Mg Tablet PO 09/07/24 07:59 3.125 mg BIDWM GHADA Administration Duloxetine HCl 60 mg 07/24/24 21:00 08/08/24 08:31 Duloxetine Hcl 30 Mg Capsule PO 08/23/24 20:59 60 mg BID GHADA Administration Furosemide 40 mg 07/27/24 13:45 08/08/24 08:33 Furosemide 40 Mg Tablet PO 08/26/24 13:44 40 mg BID GHADA Administration Gabapentin 100 mg 07/28/24 09:00 08/08/24 06:04 Gabapentin 100 Mg Capsule PO 08/27/24 08:59 100 mg TID GHADA Administration Piperacillin/Tazobactam/Dextrose 3.375 gm in 50 mls @ 12.5 mls/hr 08/07/24 22:00 08/08/24 06:04 Zosyn IV 08/14/24 21:59 12.5 mls/hr Q8HR GHADA Administration Lactulose 60 gm 08/07/24 15:15 08/08/24 06:04 Lactulose Syrup 20 Gm/30 Ml Udc PO 09/06/24 15:14 Not Given TID GHADA Protocol Melatonin 3 mg 07/31/24 21:00 08/07/24 21:40 Melatonin 3 Mg Tablet PO 08/30/24 20:59 3 mg HS GHADA Administration Methimazole 5 mg 07/23/24 09:00 08/06/24 09:49 Methimazole 5 Mg Tablet PO 08/22/24 08:59 5 mg DAILY GHADA Administration Morphine Sulfate 15 mg 08/06/24 21:00 08/07/24 21:19 Morphine Sulf 15 Mg Tabcr PO 08/11/24 20:59 15 mg HS GHADA Administration Morphine Sulfate 15 mg 08/08/24 09:00 08/08/24 08:34 Morphine Sulf 15 Mg Tabcr PO 08/13/24 08:59 15 mg QDAY GHADA Administration Ondansetron HCl 4 mg 07/23/24 15:34 07/23/24 16:49 Ondansetron Inj 2 Mg/Ml Inj 2 Ml IV 08/22/24 15:33 4 mg Q6H PRN Administration NAUSEA OR VOMITING Protocol Pantoprazole Sodium 40 mg 07/24/24 09:00 08/08/24 08:32 Pantoprazole 40 Mg Tablet PO 08/23/24 08:59 40 mg QDAY GHADA Administration Rivaroxaban 20 mg 07/25/24 17:30 08/07/24 17:00 Rivaroxaban 10 Mg Tablet PO 08/24/24 17:29 20 mg WSUPPER GHADA Administration Spironolactone 25 mg 07/25/24 09:00 08/08/24 08:36 Spironolactone 25 Mg Tablet PO 08/24/24 08:59 25 mg QDAY GHADA Administration Ursodiol 300 mg 07/27/24 12:00 08/08/24 06:04 Ursodiol 300 Mg Capsule PO 08/26/24 11:59 300 mg QID GHADA Administration Plan 74-year-old female with past medical history of COPD on 2L home o2 , CHF last echo on 2020 showed ejection fraction of 50 to 55%, A-fib on anticoagulation xarelto chronic back pain, hypertension came to the ED with chief complaint of fall. In the ED ultrasound showed CBD 1.27 cm MRCP was done which showed abnormal Abnormal extra hepatic biliary tract dilatation with abrupt termination of the distal common bile duct, differential would include malignant neoplasm at the ampulla. Cervical CT was negative for any fracture, head CT was negative for any fracture, his CT was negative for any fracture, lumbar thoracic spine CT?negative for any fracture. Initial vitals BP?115/57, P?60, RR?18, temperature?98. labs-WBC?24.9, hemoglobin?11.6, HCT?35.8,ESR- 86, na-133,cr-1.6 , total bilirubin?2.3, AST?134, ALT?54, alk phos?137, total creatinine 3532, troponin negative, CRP 12.4, BNP 395. Dr. Carrillo is planning to do ERCP. Cardiology consulted for management of fluids in the setting of rhabdo. #HFpEF 55-60%. -BNP -395 -Echo- (11/20/2023) Normal LV size and function. .Diastolic function present but cannot grade due to AFib. Estimated EF 55-60%, Normal RV size and function. Mild TR. Trace MR. -home meds coreg ,spironalactone, Lasix. -patient received 2L of fluid in ED for Sepsis and Rhabdo , currently on 125 ml/hr of NS , continue the maintainance fluid as she is not heart failure with reduced EF . and currently not on heart failure . 07/24/24: bed side her HR was in between 47-55 , she was drowsy . EKG showed sinus abel with first degree AV block , will decrease Amio to 200 Q day and discontinue coreg. He CK has decreased . pending Dr Carrillo reccs for ERCP. 07/25/2024: her heart rate is currently in 80s , continue to hold coreg . she is complaining of generalized pain in her body , primary team has decreased the dose of her morphine. 07/26/24: she is pending transfer for ERCP with spy[facility] as per Dr. Carrillo if she is not able to transfer by Monday then he will do ERCP in the hospital. Earlier her heart rate was in 50s they held the amiodarone and her heart rate went up to 100 so amiodarone Q day was given. 07/27/2024: Patient developed new onset bilateral lower extremity swelling and would be benefit from resuming her home Lasix in addition to her spironolactone. Plan:- continue holding coreg.- resume home Lasix. 07/29/2024:Continue Lasix and amiodarone for now. Pending ERCP by Dr. Carrillo 07/30/2024: she was scheduled to do ERCP today , which is scheduled on , hold xarelto prior to procedure. 07/31/2024: no acute overnight event. The heart rate is in between 90s. She is having ERCP tomorrow. Xarelto on hold 08/01/2024: ERCP done today , can resume xarelto tmorrow. 08/02/2024: Patient was examined bedside this morning, she had ERCP done yesterday. Heart rate between 80s to 90s. Continue amiodarone her white count elevated today primary team ordered a CT scan. 08/06/2024: patient was examined bedside in the afternoon , she was lethargic . WBC count going up . Continue Amiodarone 200 bid 08/07/2024: she is very lethargic, white count is going up today its 28.9 , primary team has ordered CT Scan , will follow up . She is getting NS @75 ml/hr . 08/08/2024: she is still lethargic . her white count today is 25.8 , Her total bilirubin is also trending down from 2.8-2.3,Hr between 90-100 . #A-fib. - chadsvac score- 5 -she is amiodarone 200 bid -coreg- 6.25 bid - on xarelto -07/24/24: will DC coreg for now in setting of bradycardia and change amio to Q day . -07/25/24: continue amio 200 q day. -07/26/24: continue amio 200 q day. Plan: - Continue amiodarone 200 mg BID and Xarelto. Continue low dose coreg. Management of other problems as per primary team. Case discussed with my attending Dr Browning. Safia Alanis MD,[id number]
--- NOTE | 2024-08-08 11:10 | ESPR_ITS ---
<Statement entered by Loly Mcguire MD - 08/12/24 14:42> I reviewed above note and agree with findings and plans. I have also personally examined the patient with medicine team and went over assessment and plan with medical team including manager international and resident physician. Documentation for date of: 08/08/24 Subjective Subjective Interval history: No acute overnight events. Seen and examined at bedside in telemetry and patient appears to be more alert today compared to yesterday as she is able to answer questions after asking just once. However, she appears to be in more pain as we have had to decrease her morphine dosages as concern for her mentation. Otherwise, no fevers overnight and saturating 91% on 3 L NC. Cardiology restarted her home Coreg. ID and GI following. Leukocytosis improving, T. bili/ALP and AST/ALT all downtrending. Encouraged patient to use incentive spirometer at bedside, PT to work with patient today and will attempt to have her sit in her chair. Will also monitor urine output and bowel movements. Exam Vital Signs Temp Pulse Resp BP Pulse Ox O2 Del Method O2 Flow Rate 97.4 F 99 35 H 116/68 91 L Nasal Cannula 3 08/08/24 08:00 08/08/24 08:36 08/08/24 08:00 08/08/24 08:36 08/08/24 08:00 08/08/24 08:00 08/08/24 08:00 Narrative Exam General: More alert compared to prior, alert and oriented x 3, in discomfort from pain HEENT: dry mucous membranes, NC/AT, bilateral sclera anicteric Cardiovascular: regular rate and rhythm, S1/S2 present, no murmurs appreciated Pulmonary: bibasilar crackles appreciated, no rales/rhonchi Abdominal: obese soft, non-tender, non-distended, no rebound/guarding, normal bowel sounds present Musculoskeletal: normal ROM, no peripheral edema Skin: chronic venous stasis changes, warm and dry, intact, no rashes Objective Labs 08/08/24 05:57 08/08/24 05:57 Labs: Laboratory Results - last 24 hr 08/07/24 08/08/24 10:50 05:57 WBC 25.8 H RBC 3.45 L Hgb 9.9 L Hct 29.2 L MCV 85 MCH 28.7 MCHC 33.9 RDW Std Deviation 53.1 H Plt Count 566 H Neut % (Auto) 82 H Lymph % (Auto) 5 L Canadian % (Auto) 10 Eos % (Auto) 0 Baso % (Auto) 0 Neut # (Auto) 21.2 H Lymph # (Auto) 1.2 Canadian # (Auto) 2.5 H Eos # (Auto) 0.0 Baso # (Auto) 0.1 Immature Gran # (Auto) 0.73 H Absolute Nucleated RBC 0.00 Immature Gran % 3 H Nucleated RBC % 0 Sodium 139 Potassium 4.0 D Chloride 101 Carbon Dioxide 30.4 Anion Gap 8 BUN 32 H Creatinine 1.1 Estim Creat Clear Calc 51.6 L eGFR 52 L BUN/Creatinine Ratio 29 H Glucose 100 Calculated Osmolality 284 Calcium 8.8 Corrected Calcium 9.9 Phosphorus 2.9 Magnesium 2.2 Total Bilirubin 3.3 H D AST 183 H ALT 108 H Alkaline Phosphatase 310 H D Ammonia 15 Lactate Dehydrogenase 286 H B-Natriuretic Peptide 448 H Total Protein 6.2 Albumin 2.6 L Globulin 3.6 H Albumin/Globulin Ratio 0.7 L Lipase 24 Vitamin B12 1185 H Folate 5.94 TSH 0.04 L* Free T4 1.50 Syphilis Serology Nonreactive Coccidioides IgM Ab Negative Hepatitis A IgM Ab Non Reactive Hep Bs Antigen Non Reactive Hep B Core IgM Ab Non Reactive Hepatitis C Antibody Non Reactive Quality Measures Quality Measures none Advance care planning discussed with:: patient and child Assessment & Plan Assessment Current Active Medications: Generic Name Dose Route Start Last Admin Trade Name Freq PRN Reason Stop Dose Admin Acetaminophen 650 mg 07/23/24 15:30 08/05/24 11:19 Acetaminophen 325 Mg Tablet PO 08/22/24 15:29 650 mg Q6H PRN Administration PAIN OR FEVER > 100.4 Protocol Albuterol/Ipratropium 3 ml 07/27/24 13:32 07/29/24 09:21 Albuterol/Ipratropium (Duoneb) Rt Lauren 3 Ml Nebu INH 08/24/24 08:44 3 ml Q4HRRT PRN Administration wheezing, shortness of breath Amiodarone HCl 200 mg 07/31/24 21:00 08/08/24 08:32 Amiodarone Hcl 200 Mg Tablet PO 08/30/24 20:59 200 mg BID GHADA Administration Azithromycin 500 mg 08/07/24 15:30 08/08/24 08:32 Azithromycin 250 Mg Tablet PO 08/14/24 15:29 500 mg QDAY GHADA Administration Buspirone HCl 15 mg 07/24/24 10:57 07/30/24 13:25 Buspirone Hcl 5 Mg Tablet PO 08/23/24 10:56 15 mg TID PRN Administration Anxiety Carvedilol 3.125 mg 08/08/24 08:00 08/08/24 08:33 Carvedilol 3.125 Mg Tablet PO 09/07/24 07:59 3.125 mg BIDWM GHADA Administration Duloxetine HCl 60 mg 07/24/24 21:00 08/08/24 08:31 Duloxetine Hcl 30 Mg Capsule PO 08/23/24 20:59 60 mg BID GHADA Administration Furosemide 40 mg 07/27/24 13:45 08/08/24 08:33 Furosemide 40 Mg Tablet PO 08/26/24 13:44 40 mg BID GHADA Administration Gabapentin 100 mg 07/28/24 09:00 08/08/24 06:04 Gabapentin 100 Mg Capsule PO 08/27/24 08:59 100 mg TID GHADA Administration Piperacillin/Tazobactam/Dextrose 3.375 gm in 50 mls @ 12.5 mls/hr 08/07/24 22:00 08/08/24 06:04 Zosyn IV 08/14/24 21:59 12.5 mls/hr Q8HR GHADA Administration Lactulose 60 gm 08/07/24 15:15 08/08/24 06:04 Lactulose Syrup 20 Gm/30 Ml Udc PO 09/06/24 15:14 Not Given TID GHADA Protocol Melatonin 3 mg 07/31/24 21:00 08/07/24 21:40 Melatonin 3 Mg Tablet PO 08/30/24 20:59 3 mg HS GHADA Administration Methimazole 5 mg 07/23/24 09:00 08/06/24 09:49 Methimazole 5 Mg Tablet PO 08/22/24 08:59 5 mg DAILY GHADA Administration Morphine Sulfate 15 mg 08/06/24 21:00 08/07/24 21:19 Morphine Sulf 15 Mg Tabcr PO 08/11/24 20:59 15 mg HS GHADA Administration Morphine Sulfate 15 mg 08/08/24 09:00 08/08/24 08:34 Morphine Sulf 15 Mg Tabcr PO 08/13/24 08:59 15 mg QDAY GHADA Administration Ondansetron HCl 4 mg 07/23/24 15:34 07/23/24 16:49 Ondansetron Inj 2 Mg/Ml Inj 2 Ml IV 08/22/24 15:33 4 mg Q6H PRN Administration NAUSEA OR VOMITING Protocol Pantoprazole Sodium 40 mg 07/24/24 09:00 08/08/24 08:32 Pantoprazole 40 Mg Tablet PO 08/23/24 08:59 40 mg QDAY GHADA Administration Rivaroxaban 20 mg 07/25/24 17:30 08/07/24 17:00 Rivaroxaban 10 Mg Tablet PO 08/24/24 17:29 20 mg WSUPPER GHADA Administration Spironolactone 25 mg 07/25/24 09:00 08/08/24 08:36 Spironolactone 25 Mg Tablet PO 08/24/24 08:59 25 mg QDAY GHADA Administration Ursodiol 300 mg 07/27/24 12:00 08/08/24 06:04 Ursodiol 300 Mg Capsule PO 08/26/24 11:59 300 mg QID GHADA Administration Plan Nneka Burciaga is a 74-year-old female with a past medical history of COPD on 2 L home oxygen, HFpEF (55-60% on 11/2023), a-fib on Xarelto, hypertension, and chronic pain who presented to the ED on 07/22 status-post multiple ground-level falls at home and found to have enlarged CBD on imaging, admitted for further work-up. #Acute encephalopathy secondary to infectious process vs delirium Oriented x3 but takes multiple times to ask questions to get answers and appears lethargic at bedside. Ordered ramirez CT with findings of pneumonia and fluid overload but no significant changes from CT A/P taken on 08/02. Patient has becoming weaker as well and has been in the same location for many days in a row at this time, suspect component of delirium. Ammonia wnl, TSH low but T4 normal. ? Reorient patient frequently, lights on during day and off during night, encourage family to reorient when possible ? Consider CT head if no improvement #Right middle lobe pneumonia #Leukocytosis, reactive vs inflammatory vs infective process, improving CT C/A/P 08/07 showed vascular congestion with diffuse pulmonary edema, pneumonia of the right middle lobe biliary stent in satisfactory position, signs of pancreatitis, right thyromegaly with multiple bilateral thyroid nodules. CT A/P 08/02 showed edema around pancreas, pneumobilia, bibasilar pneumonia with small pleural effusions. Repeat HIDA scan showed isotope activity in small bowel without enlargement of common hepatic or common bile duct. Zosyn (07/27-08/05, 08/07-), vancomycin (07/28-08/05), Augmentin (08/05-08/07) Syphilis negative, cocci IgM negative (pending IgG), hep panel negative, HCV negative, C. difficile negative ? ID consulted, appreciate recommendations ? Zosyn (08/07-) ? Azithromycin (08/07-) #Enlarged CBD #History of cholecystectomy #Transaminitis #Hyperbilirubinemia #Biliary stricture s/p stent No fever, chills, nausea, vomiting, abdominal pain, change in bowel habits. Gallbladder ultrasound: Enlarged CBD 1.2 cm. MRCP: Extrahepatic biliary tract dilatation with abrupt termination at distal CBD. HIDA scan showed a large common hepatic and CBD, although contrast in small bowel. ERCP 08/01: upper third of main bile duct markedly dilated secondary to stricture and middle third of main bile duct contained single moderate stenosis; biliary sphincterotomy made and 1 stent 1 internal flap placed in CBD ? GI consulted, appreciate recommendations ? Repeat blood culture 08/01: NGTD ? Will need repeat ERCP with [facility] outpatient to examine CBD and with possible biopsy ? Ursodiol 300 mg p.o. q6h #HFpEF (EF 55-60% on 11/2023) Follows-up with Dr. Browning outpatient. Not in exacerbation and not overloaded at this time. Initial BNP 395. Repeat CXR on 08/02 showed interval development of pulmonary edema vs pneumonia Echo on 08/07: EF 60%, normal LV size and function, mildly dilated left atrium. RV size mildly increased but normal systolic function. RVSP 46 mmHg. Mild MR, TR. ? Cardiology consulted, appreciate recommendations ? Spironolactone 25 mg p.o. daily ? Carvedilol 3.125 mg p.o. BIDWM ? Lasix 40 mg IV BID ? Strict I's and O's, daily weights, low sodium diet, fliud restriction (1.5 L/day) #Urinary tract infection, resolved UA showed turbid urine, 2+ blood, 23 RBC, WBC 966, 3+ bacteria, hyaline casts present. Repeat UA showed no signs of infection but now with 1+ bilirubin. ? Urine culture: Klebsiella pneumonia #Acute kidney injury, prerenal vs intrarenal, resolved ? Avoid nephrotoxic agents, renally dose medications #Rhabdomyolysis, improving Found down at home after fall, may have been for a couple of hours per history. Initial CK 3500. Received 3 L IVF per sepsis protocol and an additional 1 L afterwards. #Atrial fibrillation, on Xarelto and amiodarone ? Amiodarone 200 mg p.o. BID ? Xarelto resumed #COPD on 2 L home O2 Does not have any inhalers at home per son. ? Duonebs scheduled #History of hypertension ? Blood pressure within range #Chronic pain ? Gabapentin 100 mg p.o. 3 times daily ? Duloxetine 60 mg p.o. twice daily ? Morphine sulfate 15 mg p.o. in AM and 15 mg p.o. HS ? [place] 5 q6h prn Hospital management: Disposition: status-post ERCP, increasing WBC, ID and GI following Diet: high calorie/protein diet (1.5 L fluid restriction), ensure Lines: PIV DVT prophylaxis: SCDs GI prophylaxis: pantoprazole 40 mg po daily CODE STATUS: DNR/DNI ----- Plan discussed with attending physician Dr. Maynor Smith MD PGY-1 Internal Medicine
[2024-08-08 11:35] LABS: Clostridium Difficile PCR Negative (Negative)
[2024-08-08 11:59] LABS: Cocci Serology, IgG Negative (Negative)
--- NOTE | 2024-08-08 13:12 | ESCONSULT_ITS ---
RE: HE DELACRUZ : 1950 DATE OF CONSULTATION: 08/07/2024 REFERRING PHYSICIAN: Hospitalist team REASON FOR CONSULTATION: Hepatitis and possible cholangitis with pneumonia. HISTORY OF PRESENT ILLNESS: The patient is a 74-year-old who is DNR. She has other health problems but is not able to discuss that. She is G 1 P 1. She has a history of COPD, on oxygen at home. She also has heart failure with abnormal ejection fraction by echo last fall with atrial fibrillation noted and for which she is on Xarelto. She has hypertension and rising bilirubin is noted. ERCP was done with stenting, but she has prior cholecystectomy, hysterectomy, and biliary stenting. ALLERGIES: TO MORPHINE, SOME PAIN MEDICATIONS. IMMUNIZATIONS: Unavailable. FAMILY HISTORY: Noncontributory. SOCIAL HISTORY: She lives alone with her son according to records and is DNR. . She is a 74-year-old whod is not very healthy. On exam, the patient is encephalopathic, mostly asked for pain medication. She is on supplemental oxygen. It might be little more than before, but she is in no distress. She seems to be comfortable. She is not visibly jaundiced. Bilirubin is notably rising as noted on daily laboratory testing. This is despite antibiotic therapy. Her liver enzymes are also rising. The cause of that is not clear. Her hepatitis C test is negative. Her LFt's are up and down. There is no BNP on file and no recent echocardiogram is done. No Syphilis testing. No thyroid testing. She cannot offer any clinical history in any way. On exam, the patient has mild edema. There are no significant irregularities otherwise. HEENT and lung exam are benign. She is encephalopathic is though and unable to offer any medical history. ASSESSMENT: 1. Encephalopathy. 2. Rise in bilirubin. 3. Leukocytosis. RECOMMENDATIONS: The patient has elevated white count that seems to be trending downward. This is probably more a result of the ERCP than the antibiotics, but clearly the primary team prefers the current empiric abx. She has been afebrile, so I do not think that more rx is needed. Treatment is somewhat empiric. To that extent, it looks like you could change to augmentin and let her go home. Furthermore, her admission date is still listed at over 2 weeks ago at this point. The recommendation is I am going to get some tests tomorrow. It looks like she may have heart failure because she has some mild edema even though she is not overtly in chf. Her chest imaging suggests heart failure or pneumonia. It is hard to tell the difference. she is on some empiric rx , noting that IV azithromycin does cause some fluid overload Azithro is a large fluid volume if given IV. I will check on her again on Monday if she remains. I will be out of town for a couple of days and back on Monday. DT: 16:37:04 TT: 18:51:00 Ref: [id number] - TID: [id number] MTDD
[2024-08-08 14:00] LABS: C-Reactive Protein 6.8 mg/dL (0.0-0.9)
[2024-08-08] MEDS: LACTULOSE SYRUP 20 GM/30 ML UDC 60 GM PO (14:22)
--- NOTE | 2024-08-08 16:47 | PC.NURSE ---
Pt O2 saturation went down to low 80's lowest was 81. Patient is mouth breathing. Placed oxy mask on patient and O2 saturation when up to 94. Will continue to assess and titrate down as needed. unable to reach physician at this time. Will call again.
[2024-08-08] MEDS: RIVAROXABAN 10 MG TABLET 20 MG PO (16:53)
--- NOTE | 2024-08-08 16:57 | PC.SS ---
SS update: patient is pending GI and ID recommendations. Patient not ready for d/c today.
--- NOTE | 2024-08-08 18:39 | PD.RESEVENT ---
Documentation for date of: 08/08/24 Event Note Event Note: Rapid response called at around 6:20 PM for oral temperature 94.3 F and given elevated WBC, rapid response and sepsis alert was called. At bedside, patient was alert and oriented x3 and did not endorse any new pain, shortness of breath, or chest pain. She was noted to recently have a large bowel movement and suspect possible vasovagal response as other vital signs remained stable and temperature was already starting to rise without Kadie hugger. However, will order lacate, ABG and initiate Kadie hugger with goal temperature of 97.5 F. Given history of HFpEF, no fluids were given and recently had blood cultures drawn and CRP obtained this morning that has been downtrending. ----- Plan discussed with attending physician Dr. Maynor Smith MD PGY-1 Internal Medicine
[2024-08-08 18:46] LABS: Base Excess 8 (-3-3); HCO3 33 mEq/L (20-26); Inspired Oxygen, FIO2 21 %; O2 Saturation 88 % (91-98); PCO2 47 mmHg (32.0-48.0); pH, Arterial 7.46 (7.35-7.45)
[2024-08-08 18:49] LABS: Allen Test Performed/OK; Puncture Site Right Radial
--- NOTE | 2024-08-08 18:49 | PC.NURSE ---
Rapid Response Called at 18:21. Patient had Low Temperature. 94.3 Oral. Respirations 24. WBC 25.8. Dr. Styles and Dr. Smith at bedside. Sirs Criteria met, Sepsis alert called at 18:23. Kadie huerta initiated, Lactic Acid and ABGs ordered.
[2024-08-08 18:50] LABS: PO2 54 mmHg (83-108)
[2024-08-08 18:50] LABS: Lactate (Lactic Acid) 1.9 mMol/L (0.4-2.0)
--- NOTE | 2024-08-08 19:01 | PC.RT ---
increased flow to 6l humidified nc per abg results spo2 remains 93% RR19
[2024-08-08] MEDS: MELATONIN 3 MG TABLET PO (21:28)
[2024-08-09] VITALS (13 sets, daily range): BP systolic 99–139; BP diastolic 59–74; PULSE 60–87; RESP 14–29; TEMP 35.6–36.5; O2SAT 93–99
[2024-08-09] MEDS: ursodioL 300 MG CAPSULE PO ×4 (05:29→21:39)
[2024-08-09] MEDS: PIPER/TAZO 3.375 GM PREMIX 3.375 GM/50 ML BAG IV ×3 (05:29→21:41)
[2024-08-09] MEDS: GABAPENTIN 100 MG CAPSULE PO ×3 (05:30→21:39)
[2024-08-09 06:19] LABS: Basophils # (Auto) 0.1 Thou/mm3 (0.0-0.2); Basophils % (Auto) 0 % (0-2.5); Eosinophils # (Auto) 0.3 Thou/mm3 (0.0-0.5); Eosinophils % (Auto) 2 % (0-10); Immature Granulocytes % (Auto) 4 % (0-0); Immature Granulocytes Auto 0.86 Thou/mm3 (0.00-0.00); Lymphocytes # (Auto) 1.2 Thou/mm3 (1.0-4.8); Lymphocytes % (Auto) 6 % (10-50); Mean Corpuscular HGB Conc 33.3 g/dl (31.0-37.0); Mean Corpuscular Hemoglobin 28.5 pg (25.0-35.0); Mean Corpuscular Volume 85 fL (80-100); Monocytes # (Auto) 1.9 Thou/mm3 (0.0-0.8); Monocytes % (Auto) 10 % (0-12); Neutrophils # (Auto) 15.3 Thou/mm3 (1.8-7.7); Neutrophils % (Auto) 78 % (37-80); Nucleated Red Blood Cell % 0 /100 WBC (0); Platelet Count 527 Thou/mm3 (140-440); RDW Standard Deviation 55.2 fL (36.4-46.3); Red Blood Count 3.16 Miln/mm3 (4.00-5.20); White Blood Count 19.6 Thou/mm3 (3.6-11.0)
[2024-08-09 06:50] LABS: Alanine Aminotransferase 89 U/L (10-49); Albumin, Serum 2.5 gm/dL (3.4-4.8); Albumin/Globulin Ratio 0.7 (1.2-2.2); Alkaline Phosphatase 268 U/L (46-116); Anion Gap 9 (7-16); Aspartate Amino Transferase 120 U/L (0-34); BUN/Creatinine Ratio 32 Ratio (12-20); Bilirubin,Total 2.2 mg/dL (0.3-1.2); Blood Urea Nitrogen 32 mg/dL (9-23); C-Reactive Protein 6.1 mg/dL (0.0-0.9); Calcium 8.4 mg/dL (8.3-10.6); Calcium (Corrected) 9.6 mg/dL (8.5-10.1); Carbon Dioxide 33.5 mMol/L (20.0-31.0); Chloride 102 mMol/L (98-107); Estimated Creatinine Clearance 56.7 mL/min (>60); Globulin 3.4 gm/dL (2.3-3.5); Glucose 96 mg/dL (74-106); Magnesium 1.9 mg/dL (1.6-2.6); Osmolality,Calculated 293 (275-295); Phosphorous 3.1 mg/dL (2.4-5.1); Potassium 3.9 mMol/L (3.4-5.1); Sodium 144 mMol/L (136-145); Total Protein 5.9 gm/dL (5.7-8.2); eGFR 58 See Note
[2024-08-09] MEDS: PANTOPRAZOLE 40 MG TABLET PO (08:59)
[2024-08-09] MEDS: AMIODARONE HCL 200 MG TABLET PO ×2 (08:59→21:39)
[2024-08-09] MEDS: AZITHROMYCIN 250 MG TABLET 500 MG PO (09:01)
[2024-08-09] MEDS: carVEDILOL 3.125 MG TABLET PO ×2 (09:01→18:17)
[2024-08-09] MEDS: Furosemide 40 MG TABLET PO ×2 (09:01→21:39)
[2024-08-09] MEDS: Morphine Sulf 15 MG TABCR PO ×2 (09:02→21:39)
[2024-08-09] MEDS: DULoxetine HCL 30 MG CAPSULE 60 MG PO ×2 (09:02→21:38)
[2024-08-09] MEDS: SPIRONOLACTONE 25 MG TABLET PO (09:02)
--- NOTE | 2024-08-09 14:13 | ESPR_ITS ---
Documentation for date of: 08/09/24 Subjective Subjective Interval history: Patient was seen and examined at the bedside. No overnight events. She is still lethargic. Her WBCs are downtrending. Telemonitor shows Afib rate controlled at 80s. BP 139/59. ID is on board due to severe infection, she is on Zosyn. Continue current management. Exam Vital Signs Temp Pulse Resp BP Pulse Ox O2 Del Method O2 Flow Rate 97.2 F 87 23 H 139/59 H 94 L Nasal Cannula 3 08/09/24 12:00 08/09/24 12:00 08/09/24 12:00 08/09/24 12:00 08/09/24 12:00 08/09/24 12:00 08/09/24 12:00 Narrative Exam GENERAL: Adult female well developed, ill looking. HEENT: Normocephalic, atraumatic. Pupils are equal and reactive. Oral mucosa is moist. NECK: Supple, nontender, no JVD. CHEST: Symmetrical, atraumatic and with equal expansion ,Nontender on palpation. CARDIOVASCULAR: S1/S2. no murmur or gallop rub or extra beats. LUNGS: Bilateral crackles, no wheezing. ABDOMEN: Soft, flat, nontender to palpation, no guarding or rebound tenderness. Active and normal bowel sounds. EXTREMITIES:Moves all 4 extremities, b/l hands 2+ edema. SKIN: Warm and dry, no jaundice or rashes noted. NEURO: Patient is AO x 3, Cranial nerves II through XII grossly intact. There is no focal neurologic deficits noted. She is very lethargic. Objective Labs 08/09/24 05:47 08/09/24 05:47 Labs: Laboratory Results - last 24 hr 08/08/24 08/08/24 08/09/24 18:32 18:43 05:47 WBC 19.6 H D RBC 3.16 L Hgb 9.0 L Hct 27.0 L MCV 85 MCH 28.5 MCHC 33.3 RDW Std Deviation 55.2 H Plt Count 527 H D Neut % (Auto) 78 Lymph % (Auto) 6 L [place] % (Auto) 10 Eos % (Auto) 2 Baso % (Auto) 0 Neut # (Auto) 15.3 H Lymph # (Auto) 1.2 [place] # (Auto) 1.9 H Eos # (Auto) 0.3 Baso # (Auto) 0.1 Immature Gran # (Auto) 0.86 H Absolute Nucleated RBC 0.00 Immature Gran % 4 H Nucleated RBC % 0 Puncture Site Right Radial ABG pH 7.46 H ABG pCO2 47 ABG pO2 54 L* ABG HCO3 33 H ABG O2 Saturation 88 L ABG Base Excess 8 H FiO2 21 Sodium 144 Potassium 3.9 Chloride 102 Carbon Dioxide 33.5 H Anion Gap 9 BUN 32 H Creatinine 1.0 Estim Creat Clear Calc 56.7 L eGFR 58 L BUN/Creatinine Ratio 32 H Glucose 96 Calculated Osmolality 293 Lactic Acid 1.9 Calcium 8.4 Corrected Calcium 9.6 Phosphorus 3.1 Magnesium 1.9 Total Bilirubin 2.2 H D AST 120 H ALT 89 H Alkaline Phosphatase 268 H D C-Reactive Prot, Quant 6.1 H Total Protein 5.9 Albumin 2.5 L Globulin 3.4 Albumin/Globulin Ratio 0.7 L ABG Interpretation ABG results: 08/08/24 18:32 ABG pH 7.46 H ABG pCO2 47 ABG pO2 54 L* ABG HCO3 33 H ABG O2 Saturation 88 L ABG Base Excess 8 H Quality Measures Quality Measures VTE prophylaxis Advance care planning discussed with:: patient Assessment & Plan Assessment Current Active Medications: Generic Name Dose Route Start Last Admin Trade Name Freq PRN Reason Stop Dose Admin Acetaminophen 650 mg 07/23/24 15:30 08/05/24 11:19 Acetaminophen 325 Mg Tablet PO 08/22/24 15:29 650 mg Q6H PRN Administration PAIN OR FEVER > 100.4 Protocol Albuterol/Ipratropium 3 ml 07/27/24 13:32 07/29/24 09:21 Albuterol/Ipratropium (Duoneb) Rt Lauren 3 Ml Nebu INH 08/24/24 08:44 3 ml Q4HRRT PRN Administration wheezing, shortness of breath Amiodarone HCl 200 mg 07/31/24 21:00 08/09/24 08:59 Amiodarone Hcl 200 Mg Tablet PO 08/30/24 20:59 200 mg BID GHADA Administration Azithromycin 500 mg 08/07/24 15:30 08/09/24 09:01 Azithromycin 250 Mg Tablet PO 08/14/24 15:29 500 mg QDAY GHADA Administration Buspirone HCl 15 mg 07/24/24 10:57 07/30/24 13:25 Buspirone Hcl 5 Mg Tablet PO 08/23/24 10:56 15 mg TID PRN Administration Anxiety Carvedilol 3.125 mg 08/08/24 08:00 08/09/24 09:01 Carvedilol 3.125 Mg Tablet PO 09/07/24 07:59 3.125 mg BIDWM GHADA Administration Duloxetine HCl 60 mg 07/24/24 21:00 08/09/24 09:02 Duloxetine Hcl 30 Mg Capsule PO 08/23/24 20:59 60 mg BID GHADA Administration Furosemide 40 mg 07/27/24 13:45 08/09/24 09:01 Furosemide 40 Mg Tablet PO 08/26/24 13:44 40 mg BID GHADA Administration Gabapentin 100 mg 07/28/24 09:00 08/09/24 13:38 Gabapentin 100 Mg Capsule PO 08/27/24 08:59 100 mg TID GHADA Administration Piperacillin/Tazobactam/Dextrose 3.375 gm in 50 mls @ 12.5 mls/hr 08/07/24 22:00 08/09/24 13:38 Zosyn IV 08/14/24 21:59 12.5 mls/hr Q8HR GHADA Administration Melatonin 3 mg 07/31/24 21:00 08/08/24 21:28 Melatonin 3 Mg Tablet PO 08/30/24 20:59 3 mg HS GHADA Administration Methimazole 5 mg 07/23/24 09:00 08/06/24 09:49 Methimazole 5 Mg Tablet PO 08/22/24 08:59 5 mg DAILY GHADA Administration Morphine Sulfate 15 mg 08/06/24 21:00 08/08/24 21:28 Morphine Sulf 15 Mg Tabcr PO 08/11/24 20:59 15 mg HS GHADA Administration Morphine Sulfate 15 mg 08/08/24 09:00 08/09/24 09:02 Morphine Sulf 15 Mg Tabcr PO 08/13/24 08:59 15 mg QDAY GHADA Administration Ondansetron HCl 4 mg 07/23/24 15:34 07/23/24 16:49 Ondansetron Inj 2 Mg/Ml Inj 2 Ml IV 08/22/24 15:33 4 mg Q6H PRN Administration NAUSEA OR VOMITING Protocol Pantoprazole Sodium 40 mg 07/24/24 09:00 08/09/24 08:59 Pantoprazole 40 Mg Tablet PO 08/23/24 08:59 40 mg QDAY GHADA Administration Rivaroxaban 20 mg 07/25/24 17:30 08/08/24 16:53 Rivaroxaban 10 Mg Tablet PO 08/24/24 17:29 20 mg WSUPPER GHADA Administration Spironolactone 25 mg 07/25/24 09:00 08/09/24 09:02 Spironolactone 25 Mg Tablet PO 08/24/24 08:59 25 mg QDAY GHADA Administration Ursodiol 300 mg 07/27/24 12:00 08/09/24 12:14 Ursodiol 300 Mg Capsule PO 08/26/24 11:59 300 mg QID GHADA Administration Plan 74-year-old female with past medical history of COPD on 2L home o2 , CHF last echo on 2020 showed ejection fraction of 50 to 55%, A-fib on anticoagulation xarelto chronic back pain, hypertension came to the ED with chief complaint of fall. In the ED ultrasound showed CBD 1.27 cm MRCP was done which showed abnormal Abnormal extra hepatic biliary tract dilatation with abrupt termination of the distal common bile duct, differential would include malignant neoplasm at the ampulla. Cervical CT was negative for any fracture, head CT was negative for any fracture, his CT was negative for any fracture, lumbar thoracic spine CT?negative for any fracture. Initial vitals BP?115/57, P?60, RR?18, temperature?98. labs-WBC?24.9, hemoglobin?11.6, HCT?35.8,ESR- 86, na-133,cr-1.6 , total bilirubin?2.3, AST?134, ALT?54, alk phos?137, total creatinine 3532, troponin negative, CRP 12.4, BNP 395. Dr. Carrillo is planning to do ERCP. Cardiology consulted for management of fluids in the setting of rhabdo. #HFpEF 55-60%. -BNP -395 -Echo- (11/20/2023) Normal LV size and function. .Diastolic function present but cannot grade due to AFib. Estimated EF 55-60%, Normal RV size and function. Mild TR. Trace MR. -home meds coreg ,spironalactone, Lasix. -patient received 2L of fluid in ED for Sepsis and Rhabdo , currently on 125 ml/hr of NS , continue the maintainance fluid as she is not heart failure with reduced EF . and currently not on heart failure . 07/24/24: bed side her HR was in between 47-55 , she was drowsy . EKG showed sinus abel with first degree AV block , will decrease Amio to 200 Q day and discontinue coreg. He CK has decreased . pending Dr Carrillo reccs for ERCP. 07/25/2024: her heart rate is currently in 80s , continue to hold coreg . she is complaining of generalized pain in her body , primary team has decreased the dose of her morphine. 07/26/24: she is pending transfer for ERCP with spyglass as per Dr. Carrillo if she is not able to transfer by Monday then he will do ERCP in the hospital. Earlier her heart rate was in 50s they held the amiodarone and her heart rate went up to 100 so amiodarone Q day was given. 07/27/2024: Patient developed new onset bilateral lower extremity swelling and would be benefit from resuming her home Lasix in addition to her spironolactone. 07/29/2024:Continue Lasix and amiodarone for now. Pending ERCP by Dr. Carrillo. 07/30/2024: she was scheduled to do ERCP today , which is scheduled on , hold xarelto prior to procedure. 07/31/2024: no acute overnight event. The heart rate is in between 90s. She is having ERCP tomorrow. Xarelto on hold. 08/01/2024: ERCP done today , can resume xarelto tmorrow. 08/02/2024: Patient was examined bedside this morning, she had ERCP done yesterday. Heart rate between 80s to 90s. Continue amiodarone her white count elevated today primary team ordered a CT scan. 08/06/2024: patient was examined bedside in the afternoon , she was lethargic . WBC count going up . Continue Amiodarone 200 bid. 08/07/2024: she is very lethargic, white count is going up today its 28.9 , primary team has ordered CT Scan , will follow up . She is getting NS @75 ml/hr. 08/08/2024: she is still lethargic . her white count today is 25.8 , Her total bilirubin is also trending down from 2.8-2.3,Hr between 90-100. Plan: - continue spironolactone 25 mg daily. - continue Lasix 40 mg PO BID. - continue Coreg 3.125 mg BID. #A-fib, rate controlled. - chadsvac score- 5 -she is amiodarone 200 bid, Xarelto and coreg at home. -07/24/24: will DC coreg for now in setting of bradycardia and change amio to Q day . -07/25/24: continue amio 200 q day. -07/26/24: continue amio 200 q day. Plan: - Continue amiodarone 200 mg BID and Xarelto. - Continue low dose coreg. Management of other problems as per primary team. Case discussed with my attending Dr Browning. Robin Lopez MD, PGY 2. Disclaimer: This note was dictated by speech recognition. Minor errors in gravity prospecting operator helper may be present due to voice recognition software.
--- NOTE | 2024-08-09 14:20 | ESPR_ITS ---
<Statement entered by Loly Mcguire MD - 08/14/24 15:45> I reviewed above note and agree with findings and plans. I have also personally examined the patient with medicine team and went over assessment and plan with medical team including financial analyst intern and resident physician. Documentation for date of: 08/09/24 Subjective Subjective Interval history: Overnight, no acute events reported. Patient has been doing well since rapid response was called yesterday. Patient appears to be doing symptomatically better, on 3 L nasal cannula. Patient's temperature has been well above 97 ?F. Patient's pain continues to persist, and will uptitrate according to patient's pain tolerance. Patient's white count today dropped from 25,000-19,000 and bilirubin also dropped from 3-2. Patient most likely will stay over the weekend until her labs improved to normal range. Patient will continue to be on IV antibiotics. ABG does show slight metabolic alkalosis. Will continue to monitor patient's daily labs and symptoms. Echocardiogram taken 2 days ago showed Mildly dilated left atrium, ejection fraction 60% with normal left ventricle left wall thickness, and RVSP of 46 mmHg and mild tricuspid regurgitation and mitral regurgitation. Once patient is medically stable, and cleared can go back to her facility. Exam Vital Signs Temp Pulse Resp BP Pulse Ox O2 Del Method O2 Flow Rate 97.2 F 87 23 H 139/59 H 94 L Nasal Cannula 3 08/09/24 12:00 08/09/24 12:00 08/09/24 12:00 08/09/24 12:00 08/09/24 12:00 08/09/24 12:00 08/09/24 12:00 Narrative Exam General: More alert compared to prior, alert and oriented x 3, in discomfort from pain HEENT: dry mucous membranes, NC/AT, bilateral sclera anicteric Cardiovascular: regular rate and rhythm, S1/S2 present, no murmurs appreciated, trace edema b/l Pulmonary: bibasilar crackles appreciated but improved, no rales/rhonchi Abdominal: obese soft, non-tender, non-distended, no rebound/guarding, normal bowel sounds present Musculoskeletal: normal ROM, no peripheral edema Skin: chronic venous stasis changes, warm and dry, intact, no rashes Objective Labs 08/09/24 05:47 08/09/24 05:47 Labs: Laboratory Results - last 24 hr 08/08/24 08/08/24 08/09/24 18:32 18:43 05:47 WBC 19.6 H D RBC 3.16 L Hgb 9.0 L Hct 27.0 L MCV 85 MCH 28.5 MCHC 33.3 RDW Std Deviation 55.2 H Plt Count 527 H D Neut % (Auto) 78 Lymph % (Auto) 6 L [place] % (Auto) 10 Eos % (Auto) 2 Baso % (Auto) 0 Neut # (Auto) 15.3 H Lymph # (Auto) 1.2 [place] # (Auto) 1.9 H Eos # (Auto) 0.3 Baso # (Auto) 0.1 Immature Gran # (Auto) 0.86 H Absolute Nucleated RBC 0.00 Immature Gran % 4 H Nucleated RBC % 0 Puncture Site Right Radial ABG pH 7.46 H ABG pCO2 47 ABG pO2 54 L* ABG HCO3 33 H ABG O2 Saturation 88 L ABG Base Excess 8 H FiO2 21 Sodium 144 Potassium 3.9 Chloride 102 Carbon Dioxide 33.5 H Anion Gap 9 BUN 32 H Creatinine 1.0 Estim Creat Clear Calc 56.7 L eGFR 58 L BUN/Creatinine Ratio 32 H Glucose 96 Calculated Osmolality 293 Lactic Acid 1.9 Calcium 8.4 Corrected Calcium 9.6 Phosphorus 3.1 Magnesium 1.9 Total Bilirubin 2.2 H D AST 120 H ALT 89 H Alkaline Phosphatase 268 H D C-Reactive Prot, Quant 6.1 H Total Protein 5.9 Albumin 2.5 L Globulin 3.4 Albumin/Globulin Ratio 0.7 L ABG Interpretation ABG results: 08/08/24 18:32 ABG pH 7.46 H ABG pCO2 47 ABG pO2 54 L* ABG HCO3 33 H ABG O2 Saturation 88 L ABG Base Excess 8 H Quality Measures Quality Measures none Advance care planning discussed with:: patient Assessment & Plan Assessment Current Active Medications: Generic Name Dose Route Start Last Admin Trade Name Freq PRN Reason Stop Dose Admin Acetaminophen 650 mg 07/23/24 15:30 08/05/24 11:19 Acetaminophen 325 Mg Tablet PO 08/22/24 15:29 650 mg Q6H PRN Administration PAIN OR FEVER > 100.4 Protocol Albuterol/Ipratropium 3 ml 07/27/24 13:32 07/29/24 09:21 Albuterol/Ipratropium (Duoneb) Rt Lauren 3 Ml Nebu INH 08/24/24 08:44 3 ml Q4HRRT PRN Administration wheezing, shortness of breath Amiodarone HCl 200 mg 07/31/24 21:00 08/09/24 08:59 Amiodarone Hcl 200 Mg Tablet PO 08/30/24 20:59 200 mg BID GHADA Administration Azithromycin 500 mg 08/07/24 15:30 08/09/24 09:01 Azithromycin 250 Mg Tablet PO 08/14/24 15:29 500 mg QDAY GHADA Administration Buspirone HCl 15 mg 07/24/24 10:57 07/30/24 13:25 Buspirone Hcl 5 Mg Tablet PO 08/23/24 10:56 15 mg TID PRN Administration Anxiety Carvedilol 3.125 mg 08/08/24 08:00 08/09/24 09:01 Carvedilol 3.125 Mg Tablet PO 09/07/24 07:59 3.125 mg BIDWM GHADA Administration Duloxetine HCl 60 mg 07/24/24 21:00 08/09/24 09:02 Duloxetine Hcl 30 Mg Capsule PO 08/23/24 20:59 60 mg BID GHADA Administration Furosemide 40 mg 07/27/24 13:45 08/09/24 09:01 Furosemide 40 Mg Tablet PO 08/26/24 13:44 40 mg BID GHADA Administration Gabapentin 100 mg 07/28/24 09:00 08/09/24 13:38 Gabapentin 100 Mg Capsule PO 08/27/24 08:59 100 mg TID GHADA Administration Piperacillin/Tazobactam/Dextrose 3.375 gm in 50 mls @ 12.5 mls/hr 08/07/24 22:00 08/09/24 13:38 Zosyn IV 08/14/24 21:59 12.5 mls/hr Q8HR GHADA Administration Melatonin 3 mg 07/31/24 21:00 08/08/24 21:28 Melatonin 3 Mg Tablet PO 08/30/24 20:59 3 mg HS GHADA Administration Methimazole 5 mg 07/23/24 09:00 08/06/24 09:49 Methimazole 5 Mg Tablet PO 08/22/24 08:59 5 mg DAILY GHADA Administration Morphine Sulfate 15 mg 08/06/24 21:00 08/08/24 21:28 Morphine Sulf 15 Mg Tabcr PO 08/11/24 20:59 15 mg HS GHADA Administration Morphine Sulfate 15 mg 08/08/24 09:00 08/09/24 09:02 Morphine Sulf 15 Mg Tabcr PO 08/13/24 08:59 15 mg QDAY GHADA Administration Ondansetron HCl 4 mg 07/23/24 15:34 07/23/24 16:49 Ondansetron Inj 2 Mg/Ml Inj 2 Ml IV 08/22/24 15:33 4 mg Q6H PRN Administration NAUSEA OR VOMITING Protocol Pantoprazole Sodium 40 mg 07/24/24 09:00 08/09/24 08:59 Pantoprazole 40 Mg Tablet PO 08/23/24 08:59 40 mg QDAY GHADA Administration Rivaroxaban 20 mg 07/25/24 17:30 08/08/24 16:53 Rivaroxaban 10 Mg Tablet PO 08/24/24 17:29 20 mg WSUPPER GHADA Administration Spironolactone 25 mg 07/25/24 09:00 08/09/24 09:02 Spironolactone 25 Mg Tablet PO 08/24/24 08:59 25 mg QDAY GHADA Administration Ursodiol 300 mg 07/27/24 12:00 08/09/24 12:14 Ursodiol 300 Mg Capsule PO 08/26/24 11:59 300 mg QID GHADA Administration Plan Nneka Burciaga is a 74-year-old female with a past medical history of COPD on 2 L home oxygen, HFpEF (55-60% on 11/2023), a-fib on Xarelto, hypertension, and chronic pain who presented to the ED on 07/22 status-post multiple ground-level falls at home and found to have enlarged CBD on imaging, admitted for further work-up. #Acute encephalopathy secondary to infectious process vs delirium?improving Oriented x3 but takes multiple times to ask questions to get answers and appears lethargic at bedside. Ordered ramirez CT with findings of pneumonia and fluid overload but no significant changes from CT A/P taken on 08/02. Patient has becoming weaker as well and has been in the same location for many days in a row at this time, suspect component of delirium. Ammonia wnl, TSH low but T4 normal. ? Reorient patient frequently, lights on during day and off during night, encourage family to reorient when possible ? Consider CT head if no improvement ? C. difficile negative ? Continue monitor bowel movements, and add lactulose if patient has not had a bowel movement today #Right middle lobe pneumonia #Leukocytosis, reactive vs inflammatory vs infective process, improving CT C/A/P 08/07 showed vascular congestion with diffuse pulmonary edema, pneumonia of the right middle lobe biliary stent in satisfactory position, signs of pancreatitis, right thyromegaly with multiple bilateral thyroid nodules. CT A/P 08/02 showed edema around pancreas, pneumobilia, bibasilar pneumonia with small pleural effusions. Repeat HIDA scan showed isotope activity in small bowel without enlargement of common hepatic or common bile duct. Zosyn (07/27-08/05, 08/07-), vancomycin (07/28-08/05), Augmentin (08/05-08/07) Syphilis negative, cocci IgM negative (pending IgG), hep panel negative, HCV negative, C. difficile negative ? ID consulted, appreciate recommendations ? Zosyn (08/07-) ? Azithromycin (08/07-) #Enlarged CBD #History of cholecystectomy #Transaminitis?improving #Hyperbilirubinemia?improving #Biliary stricture s/p stent No fever, chills, nausea, vomiting, abdominal pain, change in bowel habits. Gallbladder ultrasound: Enlarged CBD 1.2 cm. MRCP: Extrahepatic biliary tract dilatation with abrupt termination at distal CBD. HIDA scan showed a large common hepatic and CBD, although contrast in small bowel. ERCP 08/01: upper third of main bile duct markedly dilated secondary to stricture and middle third of main bile duct contained single moderate stenosis; biliary sphincterotomy made and 1 stent 1 internal flap placed in CBD ? GI consulted, appreciate recommendations ? Repeat blood culture 08/01: NGTD ? Will need repeat ERCP with [facility] outpatient to examine CBD and with possible biopsy ? Ursodiol 300 mg p.o. q6h #HFpEF (EF 55-60% on 11/2023) Follows-up with Dr. Browning outpatient. Not in exacerbation and not overloaded at this time. Initial BNP 395. Repeat CXR on 08/02 showed interval development of pulmonary edema vs pneumonia Echo on 08/07: EF 60%, normal LV size and function, mildly dilated left atrium. RV size mildly increased but normal systolic function. RVSP 46 mmHg. Mild MR, TR. ? Cardiology consulted, appreciate recommendations ? Spironolactone 25 mg p.o. daily ? Carvedilol 3.125 mg p.o. BIDWM ? Lasix 40 mg IV BID ? Strict I's and O's, daily weights, low sodium diet, fliud restriction (1.5 L/day) #Urinary tract infection, resolved UA showed turbid urine, 2+ blood, 23 RBC, WBC 966, 3+ bacteria, hyaline casts present. Repeat UA showed no signs of infection but now with 1+ bilirubin. ? Urine culture: Klebsiella pneumonia #Acute kidney injury, prerenal vs intrarenal, resolved ? Avoid nephrotoxic agents, renally dose medications #Rhabdomyolysis, improving Found down at home after fall, may have been for a couple of hours per history. Initial CK 3500. Received 3 L IVF per sepsis protocol and an additional 1 L afterwards. #Atrial fibrillation, on Xarelto and amiodarone ? Amiodarone 200 mg p.o. BID ? Xarelto resumed #COPD on 2 L home O2 Does not have any inhalers at home per son. ? Duonebs scheduled #History of hypertension ? Blood pressure within range #Chronic pain ? Gabapentin 100 mg p.o. 3 times daily ? Duloxetine 60 mg p.o. twice daily ? Morphine sulfate 15 mg p.o. in AM and 15 mg p.o. HS ? Harman 5 q6h prn Hospital management: Disposition: status-post ERCP, increasing WBC, ID and GI following Diet: high calorie/protein diet (1.5 L fluid restriction), ensure Lines: PIV DVT prophylaxis: SCDs GI prophylaxis: pantoprazole 40 mg po daily CODE STATUS: DNR/DNI Patient's plan and care discussed with my attending, Dr. Mcguire. Elizabeth Styles MD PGY-2
--- NOTE | 2024-08-09 14:21 | PC.SS ---
Rounding note: patient not ready for d/c pending GI and ID recommendations.
[2024-08-09] MEDS: RIVAROXABAN 10 MG TABLET 20 MG PO (18:18)
[2024-08-09] MEDS: guaiFENesin SYRUP 200 MG/10 ML UDC 100 MG PO (21:39)
[2024-08-09] MEDS: MELATONIN 3 MG TABLET PO (21:39)
[2024-08-10] VITALS (13 sets, daily range): BP systolic 108–130; BP diastolic 58–73; PULSE 50–85; RESP 13–22; TEMP 35.9–36.5; O2SAT 95–100
[2024-08-10] MEDS: ursodioL 300 MG CAPSULE PO ×4 (05:32→21:02)
[2024-08-10] MEDS: PIPER/TAZO 3.375 GM PREMIX 3.375 GM/50 ML BAG IV ×3 (05:32→21:03)
[2024-08-10] MEDS: GABAPENTIN 100 MG CAPSULE PO ×3 (05:32→21:01)
[2024-08-10 06:09] LABS: C-Reactive Protein 4.1 mg/dL (0.0-0.9)
[2024-08-10] MEDS: guaiFENesin SYRUP 200 MG/10 ML UDC 100 MG PO ×2 (09:09→21:02)
[2024-08-10] MEDS: SPIRONOLACTONE 25 MG TABLET PO (09:09)
[2024-08-10] MEDS: PANTOPRAZOLE 40 MG TABLET PO (09:09)
[2024-08-10] MEDS: AZITHROMYCIN 250 MG TABLET 500 MG PO (09:10)
[2024-08-10] MEDS: carVEDILOL 3.125 MG TABLET PO ×2 (09:10→17:35)
[2024-08-10] MEDS: AMIODARONE HCL 200 MG TABLET PO ×2 (09:10→21:02)
[2024-08-10] MEDS: Furosemide 40 MG TABLET PO ×2 (09:10→21:01)
[2024-08-10] MEDS: Morphine Sulf 15 MG TABCR PO ×2 (09:11→21:02)
[2024-08-10] MEDS: DULoxetine HCL 30 MG CAPSULE 60 MG PO ×2 (09:11→21:01)
[2024-08-10 10:16] LABS: Basophils # (Auto) 0.1 Thou/mm3 (0.0-0.2); Basophils % (Auto) 0 % (0-2.5); Eosinophils # (Auto) 0.6 Thou/mm3 (0.0-0.5); Eosinophils % (Auto) 3 % (0-10); Hematocrit 29.8 % (36.0-46.0); Immature Granulocytes % (Auto) 3 % (0-0); Lymphocytes # (Auto) 1.1 Thou/mm3 (1.0-4.8); Lymphocytes % (Auto) 6 % (10-50); Mean Corpuscular HGB Conc 33.6 g/dl (31.0-37.0); Mean Corpuscular Volume 86 fL (80-100); Monocytes # (Auto) 1.3 Thou/mm3 (0.0-0.8); Monocytes % (Auto) 7 % (0-12); Neutrophils # (Auto) 16.3 Thou/mm3 (1.8-7.7); Neutrophils % (Auto) 82 % (37-80); Nucleated Red Blood Cell % 0 /100 WBC (0); Platelet Count 487 Thou/mm3 (140-440); RDW Standard Deviation 59.4 fL (36.4-46.3); Red Blood Count 3.45 Miln/mm3 (4.00-5.20)
[2024-08-10] MEDS: LACTULOSE SYRUP 20 GM/30 ML UDC PO ×3 (10:19→21:02)
[2024-08-10 10:42] LABS: Alanine Aminotransferase 86 U/L (10-49); Albumin, Serum 2.6 gm/dL (3.4-4.8); Albumin/Globulin Ratio 0.7 (1.2-2.2); Alkaline Phosphatase 267 U/L (46-116); Anion Gap 8 (7-16); Aspartate Amino Transferase 123 U/L (0-34); BUN/Creatinine Ratio 27 Ratio (12-20); Bilirubin,Total 1.8 mg/dL (0.3-1.2); Blood Urea Nitrogen 24 mg/dL (9-23); Calcium 8.2 mg/dL (8.3-10.6); Calcium (Corrected) 9.3 mg/dL (8.5-10.1); Carbon Dioxide 30.8 mMol/L (20.0-31.0); Chloride 99 mMol/L (98-107); Creatinine (Component) 0.9 mg/dL (0.6-1.3); Estimated Creatinine Clearance 63.1 mL/min (>60); Globulin 3.8 gm/dL (2.3-3.5); Glucose 107 mg/dL (74-106); Osmolality,Calculated 279 (275-295); Potassium 3.7 mMol/L (3.4-5.1); Sodium 138 mMol/L (136-145); Total Protein 6.4 gm/dL (5.7-8.2); eGFR > 60 See Note
--- NOTE | 2024-08-10 13:49 | ESPR_ITS ---
<Statement entered by Jason Browning MD - 08/11/24 19:37> The patient examined evaluate appears to be doing definitely better gradually improving mental status improved appetite is improving overall slow improvement is seen remains in A-fib rate controlled well continue present medical management as for A-fib rate control anticoagulation regimen is concerned no significant bleeding issues so far. Agree with the treatment plan recommendation as documented by Dr. Kelly Documentation for date of: 08/10/24 Subjective Subjective Interval history: Patient was seen and examined at the bedside. No overnight events. Her mentation is improving today. Telemonitor shows Afib rate controlled at 80s. BP 130/60. Continue on Zosyn. Continue current management. Exam Vital Signs Temp Pulse Resp BP Pulse Ox O2 Del Method O2 Flow Rate 97.1 F 71 16 130/60 99 Nasal Cannula 3 08/10/24 12:00 08/10/24 12:00 08/10/24 12:00 08/10/24 12:00 08/10/24 12:00 08/10/24 12:00 08/10/24 12:00 Narrative Exam GENERAL: Adult female well developed, ill looking. HEENT: Normocephalic, atraumatic. Pupils are equal and reactive. Oral mucosa is moist. NECK: Supple, nontender, no JVD. CHEST: Symmetrical, atraumatic and with equal expansion ,Nontender on palpation. CARDIOVASCULAR: S1/S2. no murmur or gallop rub or extra beats. LUNGS: Bilateral crackles, no wheezing. ABDOMEN: Soft, flat, nontender to palpation, no guarding or rebound tenderness. Active and normal bowel sounds. EXTREMITIES:Moves all 4 extremities, b/l hands 2+ edema. SKIN: Warm and dry, no jaundice or rashes noted. NEURO: Patient is AO x 3, Cranial nerves II through XII grossly intact. There is no focal neurologic deficits noted. Objective Labs 08/10/24 09:46 08/10/24 09:46 Labs: Laboratory Results - last 24 hr 08/10/24 08/10/24 04:53 09:46 WBC 20.0 H RBC 3.45 L Hgb 10.0 L Hct 29.8 L MCV 86 MCH 29.0 MCHC 33.6 RDW Std Deviation 59.4 H Plt Count 487 H D Neut % (Auto) 82 H Lymph % (Auto) 6 L [place] % (Auto) 7 Eos % (Auto) 3 Baso % (Auto) 0 Neut # (Auto) 16.3 H Lymph # (Auto) 1.1 [place] # (Auto) 1.3 H Eos # (Auto) 0.6 H Baso # (Auto) 0.1 Immature Gran # (Auto) 0.60 H Absolute Nucleated RBC 0.00 Immature Gran % 3 H Nucleated RBC % 0 Sodium 138 Potassium 3.7 Chloride 99 Carbon Dioxide 30.8 Anion Gap 8 BUN 24 H Creatinine 0.9 Estim Creat Clear Calc 63.1 eGFR > 60 BUN/Creatinine Ratio 27 H Glucose 107 H Calculated Osmolality 279 Calcium 8.2 L Corrected Calcium 9.3 Total Bilirubin 1.8 H AST 123 H ALT 86 H Alkaline Phosphatase 267 H C-Reactive Prot, Quant 4.1 H Total Protein 6.4 Albumin 2.6 L Globulin 3.8 H Albumin/Globulin Ratio 0.7 L ABG Interpretation ABG results: 08/08/24 18:32 ABG pH 7.46 H ABG pCO2 47 ABG pO2 54 L* ABG HCO3 33 H ABG O2 Saturation 88 L ABG Base Excess 8 H Quality Measures Quality Measures VTE prophylaxis Advance care planning discussed with:: patient Assessment & Plan Assessment Current Active Medications: Generic Name Dose Route Start Last Admin Trade Name Freq PRN Reason Stop Dose Admin Acetaminophen 650 mg 07/23/24 15:30 08/05/24 11:19 Acetaminophen 325 Mg Tablet PO 08/22/24 15:29 650 mg Q6H PRN Administration PAIN OR FEVER > 100.4 Protocol Albuterol/Ipratropium 3 ml 07/27/24 13:32 07/29/24 09:21 Albuterol/Ipratropium (Duoneb) Rt Lauren 3 Ml Nebu INH 08/24/24 08:44 3 ml Q4HRRT PRN Administration wheezing, shortness of breath Amiodarone HCl 200 mg 07/31/24 21:00 08/10/24 09:10 Amiodarone Hcl 200 Mg Tablet PO 08/30/24 20:59 200 mg BID GHADA Administration Azithromycin 500 mg 08/07/24 15:30 08/10/24 09:10 Azithromycin 250 Mg Tablet PO 08/14/24 15:29 500 mg QDAY GHADA Administration Buspirone HCl 15 mg 07/24/24 10:57 07/30/24 13:25 Buspirone Hcl 5 Mg Tablet PO 08/23/24 10:56 15 mg TID PRN Administration Anxiety Carvedilol 3.125 mg 08/08/24 08:00 08/10/24 09:10 Carvedilol 3.125 Mg Tablet PO 09/07/24 07:59 3.125 mg BIDWM GHADA Administration Duloxetine HCl 60 mg 07/24/24 21:00 08/10/24 09:11 Duloxetine Hcl 30 Mg Capsule PO 08/23/24 20:59 60 mg BID GHADA Administration Furosemide 40 mg 07/27/24 13:45 08/10/24 09:10 Furosemide 40 Mg Tablet PO 08/26/24 13:44 40 mg BID GHADA Administration Gabapentin 100 mg 07/28/24 09:00 08/10/24 05:32 Gabapentin 100 Mg Capsule PO 08/27/24 08:59 100 mg TID GHADA Administration Guaifenesin 100 mg 08/09/24 21:00 08/10/24 09:09 Guaifenesin Syrup 200 Mg/10 Ml Udc PO 09/08/24 20:59 100 mg BID GHADA Administration Protocol Piperacillin/Tazobactam/Dextrose 3.375 gm in 50 mls @ 12.5 mls/hr 08/07/24 22:00 08/10/24 05:32 Zosyn IV 08/14/24 21:59 12.5 mls/hr Q8HR GHADA Administration Lactulose 20 gm 08/10/24 10:00 08/10/24 10:19 Lactulose Syrup 20 Gm/30 Ml Udc PO 09/09/24 09:59 20 gm TID GHADA Administration Protocol Melatonin 3 mg 07/31/24 21:00 08/09/24 21:39 Melatonin 3 Mg Tablet PO 08/30/24 20:59 3 mg HS GHADA Administration Methimazole 5 mg 07/23/24 09:00 08/06/24 09:49 Methimazole 5 Mg Tablet PO 08/22/24 08:59 5 mg DAILY GHADA Administration Morphine Sulfate 15 mg 08/06/24 21:00 08/09/24 21:39 Morphine Sulf 15 Mg Tabcr PO 08/11/24 20:59 15 mg HS GHADA Administration Morphine Sulfate 15 mg 08/08/24 09:00 08/10/24 09:11 Morphine Sulf 15 Mg Tabcr PO 08/13/24 08:59 15 mg QDAY GHADA Administration Ondansetron HCl 4 mg 07/23/24 15:34 07/23/24 16:49 Ondansetron Inj 2 Mg/Ml Inj 2 Ml IV 08/22/24 15:33 4 mg Q6H PRN Administration NAUSEA OR VOMITING Protocol Pantoprazole Sodium 40 mg 07/24/24 09:00 08/10/24 09:09 Pantoprazole 40 Mg Tablet PO 08/23/24 08:59 40 mg QDAY GHADA Administration Rivaroxaban 20 mg 07/25/24 17:30 08/09/24 18:18 Rivaroxaban 10 Mg Tablet PO 08/24/24 17:29 20 mg WSUPPER GHADA Administration Spironolactone 25 mg 07/25/24 09:00 08/10/24 09:09 Spironolactone 25 Mg Tablet PO 08/24/24 08:59 25 mg QDAY GHADA Administration Ursodiol 300 mg 07/27/24 12:00 08/10/24 11:33 Ursodiol 300 Mg Capsule PO 08/26/24 11:59 300 mg QID GHADA Administration Plan 74-year-old female with past medical history of COPD on 2L home o2 , CHF last echo on 2020 showed ejection fraction of 50 to 55%, A-fib on anticoagulation xarelto chronic back pain, hypertension came to the ED with chief complaint of fall. In the ED ultrasound showed CBD 1.27 cm MRCP was done which showed abnormal Abnormal extra hepatic biliary tract dilatation with abrupt termination of the distal common bile duct, differential would include malignant neoplasm at the ampulla. Cervical CT was negative for any fracture, head CT was negative for any fracture, his CT was negative for any fracture, lumbar thoracic spine CT?negative for any fracture. Initial vitals BP?115/57, P?60, RR?18, temperature?98. labs-WBC?24.9, hemoglobin?11.6, HCT?35.8,ESR- 86, na-133,cr-1.6 , total bilirubin?2.3, AST?134, ALT?54, alk phos?137, total creatinine 3532, troponin negative, CRP 12.4, BNP 395. Dr. Carrillo is planning to do ERCP. Cardiology consulted for management of fluids in the setting of rhabdo. #HFpEF 55-60%. -BNP -395 -Echo- (11/20/2023) Normal LV size and function. .Diastolic function present but cannot grade due to AFib. Estimated EF 55-60%, Normal RV size and function. Mild TR. Trace MR. -home meds coreg ,spironalactone, Lasix. -patient received 2L of fluid in ED for Sepsis and Rhabdo , currently on 125 ml/hr of NS , continue the maintainance fluid as she is not heart failure with reduced EF . and currently not on heart failure . 07/24/24: bed side her HR was in between 47-55 , she was drowsy . EKG showed sinus abel with first degree AV block , will decrease Amio to 200 Q day and discontinue coreg. He CK has decreased . pending Dr Carrillo reccs for ERCP. 07/25/2024: her heart rate is currently in 80s , continue to hold coreg . she is complaining of generalized pain in her body , primary team has decreased the dose of her morphine. 07/26/24: she is pending transfer for ERCP with [facility] as per Dr. Carrillo if she is not able to transfer by Monday then he will do ERCP in the hospital. Earlier her heart rate was in 50s they held the amiodarone and her heart rate went up to 100 so amiodarone Q day was given. 07/27/2024: Patient developed new onset bilateral lower extremity swelling and would be benefit from resuming her home Lasix in addition to her spironolactone. 07/29/2024:Continue Lasix and amiodarone for now. Pending ERCP by Dr. Carrillo. 07/30/2024: she was scheduled to do ERCP today , which is scheduled on , hold xarelto prior to procedure. 07/31/2024: no acute overnight event. The heart rate is in between 90s. She is having ERCP tomorrow. Xarelto on hold. 08/01/2024: ERCP done today , can resume xarelto tmorrow. 08/02/2024: Patient was examined bedside this morning, she had ERCP done yesterday. Heart rate between 80s to 90s. Continue amiodarone her white count elevated today primary team ordered a CT scan. 08/06/2024: patient was examined bedside in the afternoon , she was lethargic . WBC count going up . Continue Amiodarone 200 bid. 08/07/2024: she is very lethargic, white count is going up today its 28.9 , primary team has ordered CT Scan , will follow up . She is getting NS @75 ml/hr. 08/08/2024: she is still lethargic . her white count today is 25.8 , Her total bilirubin is also trending down from 2.8-2.3,Hr between 90-100. Plan: - continue spironolactone 25 mg daily. - continue Lasix 40 mg PO BID. - continue Coreg 3.125 mg BID. #A-fib, rate controlled. - chadsvac score- 5 -she is amiodarone 200 bid, Xarelto and coreg at home. -07/24/24: will DC coreg for now in setting of bradycardia and change amio to Q day . -07/25/24: continue amio 200 q day. -07/26/24: continue amio 200 q day. Plan: - Continue amiodarone 200 mg BID and Xarelto. - Continue low dose coreg. Management of other problems as per primary team. Case discussed with my attending Dr Browning. Robin Lopez MD, PGY 2. Disclaimer: This note was dictated by speech recognition. Minor errors in template worker may be present due to voice recognition software.
--- NOTE | 2024-08-10 14:30 | ESPR_ITS ---
<Statement entered by Loly Mcguire MD - 08/14/24 15:46> I reviewed above note and agree with findings and plans. I have also personally examined the patient with medicine team and went over assessment and plan with medical team including international coordinator and resident physician. Documentation for date of: 08/10/24 Subjective Subjective Interval history: Overnight, no acute events reported. Patient continues to be on 2 L nasal cannula. Vital signs have been stable. White count is downtrending and improving. White count is stable at 20, platelets are decreased at 487, creatinine also decreased at 0.9 and T. bili decreased at 1.8. C-reactive protein also decreased to 4.1. Patient continues to respond to current pain regimen of 50 mg twice daily. Did encourage patient to start working with PT and getting out of her bed, and if extra pain is endorsed, can ask for extra pain meds. Patient's son was at bedside, and all questions asked and answered. Will continue to monitor patient's labs and symptoms. Exam Vital Signs Temp Pulse Resp BP Pulse Ox O2 Del Method O2 Flow Rate 97.1 F 71 16 130/60 99 Nasal Cannula 3 08/10/24 12:00 08/10/24 12:00 08/10/24 12:00 08/10/24 12:00 08/10/24 12:00 08/10/24 12:00 08/10/24 12:00 Narrative Exam General: More alert compared to prior, alert and oriented x 3, in discomfort from pain HEENT: dry mucous membranes, NC/AT, bilateral sclera anicteric Cardiovascular: regular rate and rhythm, S1/S2 present, no murmurs appreciated, trace edema b/l Pulmonary: bibasilar crackles appreciated but improved, no rales/rhonchi Abdominal: obese soft, non-tender, non-distended, no rebound/guarding, normal bowel sounds present Musculoskeletal: normal ROM, no peripheral edema Skin: chronic venous stasis changes, warm and dry, intact, no rashes Objective Labs 08/10/24 09:46 08/10/24 09:46 Labs: Laboratory Results - last 24 hr 08/10/24 08/10/24 04:53 09:46 WBC 20.0 H RBC 3.45 L Hgb 10.0 L Hct 29.8 L MCV 86 MCH 29.0 MCHC 33.6 RDW Std Deviation 59.4 H Plt Count 487 H D Neut % (Auto) 82 H Lymph % (Auto) 6 L [place] % (Auto) 7 Eos % (Auto) 3 Baso % (Auto) 0 Neut # (Auto) 16.3 H Lymph # (Auto) 1.1 [place] # (Auto) 1.3 H Eos # (Auto) 0.6 H Baso # (Auto) 0.1 Immature Gran # (Auto) 0.60 H Absolute Nucleated RBC 0.00 Immature Gran % 3 H Nucleated RBC % 0 Sodium 138 Potassium 3.7 Chloride 99 Carbon Dioxide 30.8 Anion Gap 8 BUN 24 H Creatinine 0.9 Estim Creat Clear Calc 63.1 eGFR > 60 BUN/Creatinine Ratio 27 H Glucose 107 H Calculated Osmolality 279 Calcium 8.2 L Corrected Calcium 9.3 Total Bilirubin 1.8 H AST 123 H ALT 86 H Alkaline Phosphatase 267 H C-Reactive Prot, Quant 4.1 H Total Protein 6.4 Albumin 2.6 L Globulin 3.8 H Albumin/Globulin Ratio 0.7 L ABG Interpretation ABG results: 08/08/24 18:32 ABG pH 7.46 H ABG pCO2 47 ABG pO2 54 L* ABG HCO3 33 H ABG O2 Saturation 88 L ABG Base Excess 8 H Quality Measures Quality Measures VTE prophylaxis Advance care planning discussed with:: patient and child Assessment & Plan Assessment Current Active Medications: Generic Name Dose Route Start Last Admin Trade Name Freq PRN Reason Stop Dose Admin Acetaminophen 650 mg 07/23/24 15:30 08/05/24 11:19 Acetaminophen 325 Mg Tablet PO 08/22/24 15:29 650 mg Q6H PRN Administration PAIN OR FEVER > 100.4 Protocol Albuterol/Ipratropium 3 ml 07/27/24 13:32 07/29/24 09:21 Albuterol/Ipratropium (Duoneb) Rt Lauren 3 Ml Nebu INH 08/24/24 08:44 3 ml Q4HRRT PRN Administration wheezing, shortness of breath Amiodarone HCl 200 mg 07/31/24 21:00 08/10/24 09:10 Amiodarone Hcl 200 Mg Tablet PO 08/30/24 20:59 200 mg BID GHADA Administration Azithromycin 500 mg 08/07/24 15:30 08/10/24 09:10 Azithromycin 250 Mg Tablet PO 08/14/24 15:29 500 mg QDAY GHADA Administration Buspirone HCl 15 mg 07/24/24 10:57 07/30/24 13:25 Buspirone Hcl 5 Mg Tablet PO 08/23/24 10:56 15 mg TID PRN Administration Anxiety Carvedilol 3.125 mg 08/08/24 08:00 08/10/24 09:10 Carvedilol 3.125 Mg Tablet PO 09/07/24 07:59 3.125 mg BIDWM GHADA Administration Duloxetine HCl 60 mg 07/24/24 21:00 08/10/24 09:11 Duloxetine Hcl 30 Mg Capsule PO 08/23/24 20:59 60 mg BID GHADA Administration Furosemide 40 mg 07/27/24 13:45 08/10/24 09:10 Furosemide 40 Mg Tablet PO 08/26/24 13:44 40 mg BID GHADA Administration Gabapentin 100 mg 07/28/24 09:00 08/10/24 13:55 Gabapentin 100 Mg Capsule PO 08/27/24 08:59 100 mg TID GHADA Administration Guaifenesin 100 mg 08/09/24 21:00 08/10/24 09:09 Guaifenesin Syrup 200 Mg/10 Ml Udc PO 09/08/24 20:59 100 mg BID GHADA Administration Protocol Piperacillin/Tazobactam/Dextrose 3.375 gm in 50 mls @ 12.5 mls/hr 08/07/24 22:00 08/10/24 13:56 Zosyn IV 08/14/24 21:59 12.5 mls/hr Q8HR GHADA Administration Lactulose 20 gm 08/10/24 10:00 08/10/24 13:55 Lactulose Syrup 20 Gm/30 Ml Udc PO 09/09/24 09:59 20 gm TID GHADA Administration Protocol Melatonin 3 mg 07/31/24 21:00 08/09/24 21:39 Melatonin 3 Mg Tablet PO 08/30/24 20:59 3 mg HS GHADA Administration Methimazole 5 mg 07/23/24 09:00 08/06/24 09:49 Methimazole 5 Mg Tablet PO 08/22/24 08:59 5 mg DAILY GHADA Administration Morphine Sulfate 15 mg 08/06/24 21:00 08/09/24 21:39 Morphine Sulf 15 Mg Tabcr PO 08/11/24 20:59 15 mg HS GHADA Administration Morphine Sulfate 15 mg 08/08/24 09:00 08/10/24 09:11 Morphine Sulf 15 Mg Tabcr PO 08/13/24 08:59 15 mg QDAY GHADA Administration Ondansetron HCl 4 mg 07/23/24 15:34 07/23/24 16:49 Ondansetron Inj 2 Mg/Ml Inj 2 Ml IV 08/22/24 15:33 4 mg Q6H PRN Administration NAUSEA OR VOMITING Protocol Pantoprazole Sodium 40 mg 07/24/24 09:00 08/10/24 09:09 Pantoprazole 40 Mg Tablet PO 08/23/24 08:59 40 mg QDAY GHADA Administration Rivaroxaban 20 mg 07/25/24 17:30 08/09/24 18:18 Rivaroxaban 10 Mg Tablet PO 08/24/24 17:29 20 mg WSUPPER GHADA Administration Spironolactone 25 mg 07/25/24 09:00 08/10/24 09:09 Spironolactone 25 Mg Tablet PO 08/24/24 08:59 25 mg QDAY GHADA Administration Ursodiol 300 mg 07/27/24 12:00 08/10/24 11:33 Ursodiol 300 Mg Capsule PO 08/26/24 11:59 300 mg QID GHADA Administration Plan Nneka Burciaga is a 74-year-old female with a past medical history of COPD on 2 L home oxygen, HFpEF (55-60% on 11/2023), a-fib on Xarelto, hypertension, and chronic pain who presented to the ED on 07/22 status-post multiple ground-level falls at home and found to have enlarged CBD on imaging, admitted for further work-up. #Acute encephalopathy secondary to infectious process vs delirium?improving Oriented x3 but takes multiple times to ask questions to get answers and appears lethargic at bedside. Ordered ramirez CT with findings of pneumonia and fluid overload but no significant changes from CT A/P taken on 08/02. Patient has becoming weaker as well and has been in the same location for many days in a row at this time, suspect component of delirium. Ammonia wnl, TSH low but T4 normal. ? Reorient patient frequently, lights on during day and off during night, encourage family to reorient when possible ? Consider CT head if no improvement ? C. difficile negative ?Patient did not have any bowel movements last night, and will add lactulose to help induce a bowel movement. #Right middle lobe pneumonia #Leukocytosis, reactive vs inflammatory vs infective process, improving CT C/A/P 08/07 showed vascular congestion with diffuse pulmonary edema, pneumonia of the right middle lobe biliary stent in satisfactory position, signs of pancreatitis, right thyromegaly with multiple bilateral thyroid nodules. CT A/P 08/02 showed edema around pancreas, pneumobilia, bibasilar pneumonia with small pleural effusions. Repeat HIDA scan showed isotope activity in small bowel without enlargement of common hepatic or common bile duct. Zosyn (07/27-08/05, 08/07-), vancomycin (07/28-08/05), Augmentin (08/05-08/07) Syphilis negative, cocci IgM negative (pending IgG), hep panel negative, HCV negative, C. difficile negative ? ID consulted, appreciate recommendations ? Zosyn (08/07-) ? Azithromycin (08/07-) #Enlarged CBD #History of cholecystectomy #Transaminitis?improving #Hyperbilirubinemia?improving #Biliary stricture s/p stent No fever, chills, nausea, vomiting, abdominal pain, change in bowel habits. Gallbladder ultrasound: Enlarged CBD 1.2 cm. MRCP: Extrahepatic biliary tract dilatation with abrupt termination at distal CBD. HIDA scan showed a large common hepatic and CBD, although contrast in small bowel. ERCP 08/01: upper third of main bile duct markedly dilated secondary to stricture and middle third of main bile duct contained single moderate stenosis; biliary sphincterotomy made and 1 stent 1 internal flap placed in CBD ? GI consulted, appreciate recommendations ? Repeat blood culture 08/01: NGTD ? Will need repeat ERCP with [facility] outpatient to examine CBD and with possible biopsy ? Ursodiol 300 mg p.o. q6h #HFpEF (EF 55-60% on 11/2023) Follows-up with Dr. Browning outpatient. Not in exacerbation and not overloaded at this time. Initial BNP 395. Repeat CXR on 08/02 showed interval development of pulmonary edema vs pneumonia Echo on 08/07: EF 60%, normal LV size and function, mildly dilated left atrium. RV size mildly increased but normal systolic function. RVSP 46 mmHg. Mild MR, TR. ? Cardiology consulted, appreciate recommendations ? Spironolactone 25 mg p.o. daily ? Carvedilol 3.125 mg p.o. BIDWM ? Lasix 40 mg IV BID ? Strict I's and O's, daily weights, low sodium diet, fliud restriction (1.5 L/day) #Urinary tract infection, resolved UA showed turbid urine, 2+ blood, 23 RBC, WBC 966, 3+ bacteria, hyaline casts present. Repeat UA showed no signs of infection but now with 1+ bilirubin. ? Urine culture: Klebsiella pneumonia #Acute kidney injury, prerenal vs intrarenal, resolved ? Avoid nephrotoxic agents, renally dose medications #Rhabdomyolysis, improving Found down at home after fall, may have been for a couple of hours per history. Initial CK 3500. Received 3 L IVF per sepsis protocol and an additional 1 L afterwards. #Atrial fibrillation, on Xarelto and amiodarone ? Amiodarone 200 mg p.o. BID ? Xarelto resumed #COPD on 2 L home O2 Does not have any inhalers at home per son. ? Duonebs scheduled #History of hypertension ? Blood pressure within range #Chronic pain ? Gabapentin 100 mg p.o. 3 times daily ? Duloxetine 60 mg p.o. twice daily ? Morphine sulfate 15 mg p.o. in AM and 15 mg p.o. HS ? Mary Alice 5 q6h prn Hospital management: Disposition: status-post ERCP, improving labs and symptoms, anticipate discharge within 72 hours Diet: high calorie/protein diet (1.5 L fluid restriction), ensure Lines: PIV DVT prophylaxis: SCDs GI prophylaxis: pantoprazole 40 mg po daily CODE STATUS: DNR/DNI Patient's plan and care discussed with my attending, Dr. Mcguire. Elizabeth Styles MD PGY-2
[2024-08-10] MEDS: RIVAROXABAN 10 MG TABLET 20 MG PO (17:34)
[2024-08-10] MEDS: MELATONIN 3 MG TABLET PO (21:01)
[2024-08-11] VITALS (13 sets, daily range): BP systolic 100–123; BP diastolic 52–63; PULSE 0–86; RESP 16–20; TEMP 36.1–36.8; O2SAT 95–98
[2024-08-11] MEDS: PIPER/TAZO 3.375 GM PREMIX 3.375 GM/50 ML BAG IV ×3 (05:34→21:51)
[2024-08-11] MEDS: ursodioL 300 MG CAPSULE PO ×4 (05:34→21:51)
[2024-08-11] MEDS: GABAPENTIN 100 MG CAPSULE PO ×3 (05:34→21:51)
[2024-08-11 06:28] LABS: Basophils # (Auto) 0.1 Thou/mm3 (0.0-0.2); Basophils % (Auto) 0 % (0-2.5); Eosinophils # (Auto) 0.5 Thou/mm3 (0.0-0.5); Eosinophils % (Auto) 3 % (0-10); Hematocrit 27.5 % (36.0-46.0); Hemoglobin 9.1 g/dL (12.0-16.0); Immature Granulocytes % (Auto) 2 % (0-0); Immature Granulocytes Auto 0.45 Thou/mm3 (0.00-0.00); Lymphocytes # (Auto) 1.1 Thou/mm3 (1.0-4.8); Lymphocytes % (Auto) 6 % (10-50); Mean Corpuscular HGB Conc 33.1 g/dl (31.0-37.0); Mean Corpuscular Hemoglobin 28.8 pg (25.0-35.0); Mean Corpuscular Volume 87 fL (80-100); Monocytes # (Auto) 1.5 Thou/mm3 (0.0-0.8); Monocytes % (Auto) 8 % (0-12); Neutrophils % (Auto) 80 % (37-80); Nucleated Red Blood Cell % 0 /100 WBC (0); Platelet Count 418 Thou/mm3 (140-440); RDW Standard Deviation 59.7 fL (36.4-46.3); Red Blood Count 3.16 Miln/mm3 (4.00-5.20); White Blood Count 18.7 Thou/mm3 (3.6-11.0)
[2024-08-11 07:03] LABS: Alanine Aminotransferase 80 U/L (10-49); Albumin, Serum 2.4 gm/dL (3.4-4.8); Albumin/Globulin Ratio 0.7 (1.2-2.2); Alkaline Phosphatase 253 U/L (46-116); Anion Gap 8 (7-16); Aspartate Amino Transferase 121 U/L (0-34); BUN/Creatinine Ratio 23 Ratio (12-20); Bilirubin,Total 1.7 mg/dL (0.3-1.2); Blood Urea Nitrogen 23 mg/dL (9-23); Calcium 8.1 mg/dL (8.3-10.6); Calcium (Corrected) 9.4 mg/dL (8.5-10.1); Carbon Dioxide 31.7 mMol/L (20.0-31.0); Chloride 100 mMol/L (98-107); Estimated Creatinine Clearance 56.7 mL/min (>60); Globulin 3.6 gm/dL (2.3-3.5); Glucose 89 mg/dL (74-106); Osmolality,Calculated 282 (275-295); Potassium 3.5 mMol/L (3.4-5.1); Sodium 140 mMol/L (136-145); eGFR 58 See Note
[2024-08-11] MEDS: carVEDILOL 3.125 MG TABLET PO ×2 (07:58→19:14)
[2024-08-11] MEDS: POTASSIUM CHLORIDE 20 mEq TABCR PO (07:58)
[2024-08-11] MEDS: PANTOPRAZOLE 40 MG TABLET PO (08:16)
[2024-08-11] MEDS: guaiFENesin SYRUP 200 MG/10 ML UDC 100 MG PO ×2 (08:16→21:51)
[2024-08-11] MEDS: DULoxetine HCL 30 MG CAPSULE 60 MG PO ×2 (08:16→21:51)
[2024-08-11] MEDS: SPIRONOLACTONE 25 MG TABLET PO (08:16)
[2024-08-11] MEDS: Furosemide 40 MG TABLET PO (08:16)
[2024-08-11] MEDS: AZITHROMYCIN 250 MG TABLET 500 MG PO (08:17)
[2024-08-11] MEDS: Morphine Sulf 15 MG TABCR PO (08:17)
[2024-08-11] MEDS: AMIODARONE HCL 200 MG TABLET PO ×2 (08:17→21:51)
--- NOTE | 2024-08-11 10:06 | ESPR_ITS ---
<Statement entered by Loly Mcguire MD - 08/16/24 12:35> I reviewed above note and agree with findings and plans. I have also personally examined the patient with medicine team and went over assessment and plan with medical team including manager of international and resident physician. Documentation for date of: 08/11/24 Subjective Subjective Interval history: No acute overnight events. Seen and examined at bedside in telemetry and patient A&O x 3, denies any abdominal pain, chest pain, worsening shortness of breath. However, she states that she was in pain at her hips. O2 requirements now at baseline of 2 L NC, BP on the lower side at 100/53 so Lasix held for today. No fevers overnight. I/O last 24 hours of 1000/1500. WBC improving from 20 to 18.7, hemoglobin stable at 9.1, platelets downtrending. T. bili and alk phos downtrending, AST and ALT slowly downtrending. Exam Vital Signs Temp Pulse Resp BP Pulse Ox O2 Del Method O2 Flow Rate 97.2 F 72 18 100/53 L 98 Nasal Cannula 2 08/11/24 07:58 08/11/24 08:17 08/11/24 07:58 08/11/24 08:17 08/11/24 07:58 08/11/24 07:58 08/11/24 07:58 Narrative Exam General: More alert compared to prior, alert and oriented x 3, in discomfort from pain HEENT: dry mucous membranes, NC/AT, bilateral sclera anicteric Cardiovascular: regular rate and rhythm, S1/S2 present, no murmurs appreciated, trace edema b/l Pulmonary: bibasilar crackles appreciated but improved, no rales/rhonchi Abdominal: obese soft, non-tender, non-distended, no rebound/guarding, normal bowel sounds present Musculoskeletal: normal ROM, no peripheral edema Skin: chronic venous stasis changes, warm and dry, intact, no rashes Objective Labs 08/11/24 05:15 08/11/24 05:15 Labs: Laboratory Results - last 24 hr 08/10/24 08/11/24 09:46 05:15 WBC 20.0 H 18.7 H RBC 3.45 L 3.16 L Hgb 10.0 L 9.1 L Hct 29.8 L 27.5 L MCV 86 87 MCH 29.0 28.8 MCHC 33.6 33.1 RDW Std Deviation 59.4 H 59.7 H Plt Count 487 H D 418 D Neut % (Auto) 82 H 80 Lymph % (Auto) 6 L 6 L [place] % (Auto) 7 8 Eos % (Auto) 3 3 Baso % (Auto) 0 0 Neut # (Auto) 16.3 H 15.0 H Lymph # (Auto) 1.1 1.1 [place] # (Auto) 1.3 H 1.5 H Eos # (Auto) 0.6 H 0.5 Baso # (Auto) 0.1 0.1 Immature Gran # (Auto) 0.60 H 0.45 H Absolute Nucleated RBC 0.00 0.00 Immature Gran % 3 H 2 H Nucleated RBC % 0 0 Sodium 138 140 Potassium 3.7 3.5 Chloride 99 100 Carbon Dioxide 30.8 31.7 H Anion Gap 8 8 BUN 24 H 23 Creatinine 0.9 1.0 Estim Creat Clear Calc 63.1 56.7 L eGFR > 60 58 L BUN/Creatinine Ratio 27 H 23 H Glucose 107 H 89 Calculated Osmolality 279 282 Calcium 8.2 L 8.1 L Corrected Calcium 9.3 9.4 Total Bilirubin 1.8 H 1.7 H AST 123 H 121 H ALT 86 H 80 H Alkaline Phosphatase 267 H 253 H Total Protein 6.4 6.0 Albumin 2.6 L 2.4 L Globulin 3.8 H 3.6 H Albumin/Globulin Ratio 0.7 L 0.7 L ABG Interpretation ABG results: 08/08/24 18:32 ABG pH 7.46 H ABG pCO2 47 ABG pO2 54 L* ABG HCO3 33 H ABG O2 Saturation 88 L ABG Base Excess 8 H Quality Measures Quality Measures VTE prophylaxis Advance care planning discussed with:: patient Assessment & Plan Assessment Current Active Medications: Generic Name Dose Route Start Last Admin Trade Name Freq PRN Reason Stop Dose Admin Acetaminophen 650 mg 07/23/24 15:30 08/05/24 11:19 Acetaminophen 325 Mg Tablet PO 08/22/24 15:29 650 mg Q6H PRN Administration PAIN OR FEVER > 100.4 Protocol Albuterol/Ipratropium 3 ml 07/27/24 13:32 07/29/24 09:21 Albuterol/Ipratropium (Duoneb) Rt Lauren 3 Ml Nebu INH 08/24/24 08:44 3 ml Q4HRRT PRN Administration wheezing, shortness of breath Amiodarone HCl 200 mg 07/31/24 21:00 08/11/24 08:17 Amiodarone Hcl 200 Mg Tablet PO 08/30/24 20:59 200 mg BID GHADA Administration Azithromycin 500 mg 08/07/24 15:30 08/11/24 08:17 Azithromycin 250 Mg Tablet PO 08/14/24 15:29 500 mg QDAY GHADA Administration Buspirone HCl 15 mg 07/24/24 10:57 07/30/24 13:25 Buspirone Hcl 5 Mg Tablet PO 08/23/24 10:56 15 mg TID PRN Administration Anxiety Carvedilol 3.125 mg 08/08/24 08:00 08/11/24 07:58 Carvedilol 3.125 Mg Tablet PO 09/07/24 07:59 3.125 mg BIDWM GHAAD Administration Duloxetine HCl 60 mg 07/24/24 21:00 08/11/24 08:16 Duloxetine Hcl 30 Mg Capsule PO 08/23/24 20:59 60 mg BID GHADA Administration Furosemide 40 mg 07/27/24 13:45 08/11/24 08:16 Furosemide 40 Mg Tablet PO 08/26/24 13:44 40 mg BID GHADA Administration Gabapentin 100 mg 07/28/24 09:00 08/11/24 05:34 Gabapentin 100 Mg Capsule PO 08/27/24 08:59 100 mg TID GHADA Administration Guaifenesin 100 mg 08/09/24 21:00 08/11/24 08:16 Guaifenesin Syrup 200 Mg/10 Ml Udc PO 09/08/24 20:59 100 mg BID GHADA Administration Protocol Piperacillin/Tazobactam/Dextrose 3.375 gm in 50 mls @ 12.5 mls/hr 08/07/24 22:00 08/11/24 05:34 Zosyn IV 08/14/24 21:59 12.5 mls/hr Q8HR GHADA Administration Lactulose 20 gm 08/11/24 07:11 Lactulose Syrup 20 Gm/30 Ml Udc PO 09/09/24 09:59 TID GHADA Protocol Melatonin 3 mg 07/31/24 21:00 08/10/24 21:01 Melatonin 3 Mg Tablet PO 08/30/24 20:59 3 mg HS GHADA Administration Methimazole 5 mg 07/23/24 09:00 08/06/24 09:49 Methimazole 5 Mg Tablet PO 08/22/24 08:59 5 mg DAILY GHADA Administration Morphine Sulfate 15 mg 08/06/24 21:00 08/10/24 21:02 Morphine Sulf 15 Mg Tabcr PO 08/11/24 20:59 15 mg HS GHADA Administration Morphine Sulfate 15 mg 08/08/24 09:00 08/11/24 08:17 Morphine Sulf 15 Mg Tabcr PO 08/13/24 08:59 15 mg QDAY GHADA Administration Ondansetron HCl 4 mg 07/23/24 15:34 07/23/24 16:49 Ondansetron Inj 2 Mg/Ml Inj 2 Ml IV 08/22/24 15:33 4 mg Q6H PRN Administration NAUSEA OR VOMITING Protocol Pantoprazole Sodium 40 mg 07/24/24 09:00 08/11/24 08:16 Pantoprazole 40 Mg Tablet PO 08/23/24 08:59 40 mg QDAY GHADA Administration Rivaroxaban 20 mg 07/25/24 17:30 08/10/24 17:34 Rivaroxaban 10 Mg Tablet PO 08/24/24 17:29 20 mg WSUPPER GHADA Administration Spironolactone 25 mg 07/25/24 09:00 08/11/24 08:16 Spironolactone 25 Mg Tablet PO 08/24/24 08:59 25 mg QDAY GHADA Administration Ursodiol 300 mg 07/27/24 12:00 08/11/24 05:34 Ursodiol 300 Mg Capsule PO 08/26/24 11:59 300 mg QID GHADA Administration Plan Nneka Burciaga is a 74-year-old female with a past medical history of COPD on 2 L home oxygen, HFpEF (55-60% on 11/2023), a-fib on Xarelto, hypertension, and chronic pain who presented to the ED on 07/22 status-post multiple ground-level falls at home and found to have enlarged CBD on imaging, admitted for further work-up. #Acute encephalopathy secondary to infectious process vs delirium?improving Oriented x3 but takes multiple times to ask questions to get answers and appears lethargic at bedside. Ordered ramirez CT with findings of pneumonia and fluid overload but no significant changes from CT A/P taken on 08/02. Patient has becoming weaker as well and has been in the same location for many days in a row at this time, suspect component of delirium. Ammonia wnl, TSH low but T4 normal. ? Reorient patient frequently, lights on during day and off during night, encourage family to reorient when possible ? Consider CT head if no improvement ? C. difficile negative #Right middle lobe pneumonia #Leukocytosis, reactive vs inflammatory vs infective process, improving CT C/A/P 08/07 showed vascular congestion with diffuse pulmonary edema, pneumonia of the right middle lobe biliary stent in satisfactory position, signs of pancreatitis, right thyromegaly with multiple bilateral thyroid nodules. CT A/P 08/02 showed edema around pancreas, pneumobilia, bibasilar pneumonia with small pleural effusions. Repeat HIDA scan showed isotope activity in small bowel without enlargement of common hepatic or common bile duct. Zosyn (07/27-08/05, 08/07-), vancomycin (07/28-08/05), Augmentin (08/05-08/07) Syphilis negative, cocci IgM negative (pending IgG), hep panel negative, HCV negative, C. difficile negative ? ID consulted, appreciate recommendations ? Zosyn (08/07-) ? Azithromycin (08/07-) #Enlarged CBD #History of cholecystectomy #Transaminitis?improving #Hyperbilirubinemia?improving #Biliary stricture s/p stent No fever, chills, nausea, vomiting, abdominal pain, change in bowel habits. Gallbladder ultrasound: Enlarged CBD 1.2 cm. MRCP: Extrahepatic biliary tract dilatation with abrupt termination at distal CBD. HIDA scan showed a large common hepatic and CBD, although contrast in small bowel. ERCP 08/01: upper third of main bile duct markedly dilated secondary to stricture and middle third of main bile duct contained single moderate stenosis; biliary sphincterotomy made and 1 stent 1 internal flap placed in CBD ? GI consulted, appreciate recommendations ? Repeat blood culture 08/01: NGTD ? Will need repeat ERCP with [facility] outpatient to examine CBD and with possible biopsy ? Ursodiol 300 mg p.o. q6h #HFpEF (EF 55-60% on 11/2023) Follows-up with Dr. Browning outpatient. Not in exacerbation and not overloaded at this time. Initial BNP 395. Repeat CXR on 08/02 showed interval development of pulmonary edema vs pneumonia Echo on 08/07: EF 60%, normal LV size and function, mildly dilated left atrium. RV size mildly increased but normal systolic function. RVSP 46 mmHg. Mild MR, TR. ? Cardiology consulted, appreciate recommendations ? Spironolactone 25 mg p.o. daily ? Carvedilol 3.125 mg p.o. BIDWM ? Lasix 40 mg IV BID -> HELD ? Strict I's and O's, daily weights, low sodium diet, fliud restriction (1.5 L/day) #Atrial fibrillation, on Xarelto and amiodarone ? Amiodarone 200 mg p.o. BID ? Xarelto resumed #COPD on 2 L home O2 Does not have any inhalers at home per son. ? Duonebs as needed #History of hypertension ? Blood pressure within range #Chronic pain ? Gabapentin 100 mg p.o. 3 times daily ? Duloxetine 60 mg p.o. twice daily ? Morphine sulfate 15 mg p.o. in AM and 15 mg p.o. HS ? [place] 5 q6h prn #Urinary tract infection, resolved UA showed turbid urine, 2+ blood, 23 RBC, WBC 966, 3+ bacteria, hyaline casts present. Repeat UA showed no signs of infection but now with 1+ bilirubin. Urine culture: Klebsiella pneumonia ->received full course of antibiotics #Acute kidney injury, prerenal vs intrarenal, resolved #Rhabdomyolysis, improving Found down at home after fall, may have been for a couple of hours per history. Initial CK 3500. Received 3 L IVF per sepsis protocol and an additional 1 L afterwards. Hospital management: Disposition: status-post ERCP, improving labs and symptoms, anticipate discharge within 72 hours Diet: high calorie/protein diet (1.5 L fluid restriction), ensure Lines: PIV DVT prophylaxis: SCDs GI prophylaxis: pantoprazole 40 mg po daily CODE STATUS: DNR/DNI ----- Plan discussed with attending physician Dr. Maynor Smith MD PGY-1 Internal Medicine
--- NOTE | 2024-08-11 15:11 | PC.SS ---
Addendum entered by Ann Marie Hermosillo 08/11/24 17:16: [facility] stated current PT eval is needed and current clinicals needed for review. Original Note: SS awaiting response from [facility] to confirm if patient needs a new PT eval. before discharging to SNF. Per notes, PT eval was last completed 07/24.
[2024-08-11] MEDS: RIVAROXABAN 10 MG TABLET 20 MG PO (19:14)
[2024-08-11] MEDS: MELATONIN 3 MG TABLET PO (21:51)
--- NOTE | 2024-08-11 22:10 | ESPR_ITS ---
RE: NNEKA DELACRUZ : 1950 DATE OF SERVICE: 08/11/2024 SUBJECTIVE: Nneka better today. She still complains of poor appetite, not eating well, but her white count is coming down at 18,000 now, not having chest pain and shortness of breath. OBJECTIVE: General: Vital Signs: Blood pressure 108/52. Pulse 86. Neck: Supple. No JVD. Chest: Symmetrical. Lung: Decreased breath sounds at the base. Heart: Heart sounds irregular. Abdomen: Thin and soft. Extremities: Mild edema. /Rectal: Not performed. ASSESSMENT: 1. Atrial fibrillation, rate controlled. 2. Congestive heart failure, well compensated. 3. Leukocytosis secondary to cholangitis, improving with . As per the cardiac status, the patient requires continue current regimen of anticoagulation, Xarelto, carvedilol low dose, and amiodarone 200 mg b.i.d. and monitor closely tachybrady arrhythmia. DT: 19:54:01 TT: 21:15:00 Ref: [id number] - TID: [id number]
[2024-08-12] VITALS (12 sets, daily range): BP systolic 106–136; BP diastolic 53–79; PULSE 64–83; RESP 16–20; TEMP 36.1–37.1; O2SAT 90–97; BMI 12.0
[2024-08-12 05:26] LABS: Basophils # (Auto) 0.1 Thou/mm3 (0.0-0.2); Basophils % (Auto) 0 % (0-2.5); Eosinophils # (Auto) 0.5 Thou/mm3 (0.0-0.5); Eosinophils % (Auto) 2 % (0-10); Hematocrit 29.2 % (36.0-46.0); Hemoglobin 9.7 g/dL (12.0-16.0); Immature Granulocytes % (Auto) 2 % (0-0); Immature Granulocytes Auto 0.36 Thou/mm3 (0.00-0.00); Lymphocytes # (Auto) 1.1 Thou/mm3 (1.0-4.8); Lymphocytes % (Auto) 5 % (10-50); Mean Corpuscular HGB Conc 33.2 g/dl (31.0-37.0); Mean Corpuscular Hemoglobin 29.2 pg (25.0-35.0); Mean Corpuscular Volume 88 fL (80-100); Monocytes # (Auto) 1.4 Thou/mm3 (0.0-0.8); Monocytes % (Auto) 7 % (0-12); Neutrophils # (Auto) 17.6 Thou/mm3 (1.8-7.7); Neutrophils % (Auto) 84 % (37-80); Nucleated Red Blood Cell % 0 /100 WBC (0); Platelet Count 361 Thou/mm3 (140-440); RDW Standard Deviation 62.4 fL (36.4-46.3); Red Blood Count 3.32 Miln/mm3 (4.00-5.20)
[2024-08-12] MEDS: GABAPENTIN 100 MG CAPSULE PO ×3 (05:28→21:39)
[2024-08-12] MEDS: LACTULOSE SYRUP 20 GM/30 ML UDC PO ×3 (05:29→21:48)
[2024-08-12] MEDS: PIPER/TAZO 3.375 GM PREMIX 3.375 GM/50 ML BAG IV ×3 (05:29→21:40)
[2024-08-12] MEDS: ursodioL 300 MG CAPSULE PO ×4 (05:29→20:35)
[2024-08-12 05:52] LABS: Alanine Aminotransferase 77 U/L (10-49); Albumin, Serum 2.5 gm/dL (3.4-4.8); Albumin/Globulin Ratio 0.7 (1.2-2.2); Alkaline Phosphatase 250 U/L (46-116); Anion Gap 8 (7-16); Aspartate Amino Transferase 114 U/L (0-34); BUN/Creatinine Ratio 21 Ratio (12-20); Bilirubin,Total 1.6 mg/dL (0.3-1.2); Blood Urea Nitrogen 17 mg/dL (9-23); Calcium 8.1 mg/dL (8.3-10.6); Calcium (Corrected) 9.3 mg/dL (8.5-10.1); Carbon Dioxide 29.1 mMol/L (20.0-31.0); Chloride 100 mMol/L (98-107); Creatinine (Component) 0.8 mg/dL (0.6-1.3); Estimated Creatinine Clearance 70.9 mL/min (>60); Globulin 3.7 gm/dL (2.3-3.5); Glucose 91 mg/dL (74-106); Osmolality,Calculated 275 (275-295); Potassium 4.3 mMol/L (3.4-5.1); Sodium 137 mMol/L (136-145); Total Protein 6.2 gm/dL (5.7-8.2); eGFR > 60 See Note
[2024-08-12] MEDS: carVEDILOL 3.125 MG TABLET PO ×2 (08:31→16:43)
[2024-08-12] MEDS: guaiFENesin SYRUP 200 MG/10 ML UDC 100 MG PO ×2 (09:21→21:39)
[2024-08-12] MEDS: AMIODARONE HCL 200 MG TABLET PO ×2 (09:22→20:35)
[2024-08-12] MEDS: DULoxetine HCL 30 MG CAPSULE 60 MG PO ×2 (09:22→20:36)
[2024-08-12] MEDS: AZITHROMYCIN 250 MG TABLET 500 MG PO (09:22)
[2024-08-12] MEDS: PANTOPRAZOLE 40 MG TABLET PO (09:22)
[2024-08-12] MEDS: Morphine Sulf 15 MG TABCR PO (09:22)
[2024-08-12] MEDS: SPIRONOLACTONE 25 MG TABLET PO (09:23)
--- NOTE | 2024-08-12 09:39 | ESPR_ITS ---
Subjective Subjective Interval history: bili falling. cx neg. urine treated. on empiric iv rx with zosyn. Exam Vital Signs Temp Pulse Resp BP Pulse Ox O2 Del Method O2 Flow Rate 98.1 F 79 18 122/53 L 96 Nasal Cannula 2 08/12/24 04:00 08/12/24 09:23 08/12/24 06:50 08/12/24 09:23 08/12/24 06:50 08/12/24 04:00 08/12/24 06:50 Narrative Exam limited eval Objective - Internal Medicine Labs 08/12/24 05:00 08/12/24 05:00 Labs: Laboratory Results - last 24 hr 08/12/24 05:00 WBC 21.0 H RBC 3.32 L Hgb 9.7 L Hct 29.2 L MCV 88 MCH 29.2 MCHC 33.2 RDW Std Deviation 62.4 H Plt Count 361 D Neut % (Auto) 84 H Lymph % (Auto) 5 L [place] % (Auto) 7 Eos % (Auto) 2 Baso % (Auto) 0 Neut # (Auto) 17.6 H Lymph # (Auto) 1.1 [place] # (Auto) 1.4 H Eos # (Auto) 0.5 Baso # (Auto) 0.1 Immature Gran # (Auto) 0.36 H Absolute Nucleated RBC 0.00 Immature Gran % 2 H Nucleated RBC % 0 Sodium 137 Potassium 4.3 D Chloride 100 Carbon Dioxide 29.1 Anion Gap 8 BUN 17 Creatinine 0.8 Estim Creat Clear Calc 70.9 eGFR > 60 BUN/Creatinine Ratio 21 H Glucose 91 Calculated Osmolality 275 Calcium 8.1 L Corrected Calcium 9.3 Magnesium 2.0 Total Bilirubin 1.6 H AST 114 H ALT 77 H Alkaline Phosphatase 250 H Total Protein 6.2 Albumin 2.5 L Globulin 3.7 H Albumin/Globulin Ratio 0.7 L ABG Interpretation ABG results: 08/08/24 18:32 ABG pH 7.46 H ABG pCO2 47 ABG pO2 54 L* ABG HCO3 33 H ABG O2 Saturation 88 L ABG Base Excess 8 H Assessment & Plan A&P Narrative hep panel neg. hep c repeatedly neg too bili falling. ok to change to empiric augmentin 875 bid for remainder of 7d rx for pneumonia will check in wed if she remains in house. biliary stent may require gi f/u. no need to f/u with ID Time Spent With Patient Time: Total time spent is greater than 50% in coordination of care (as documented) at patient's floor/unit and/or counseling patient:
--- NOTE | 2024-08-12 09:46 | PD.IDPROG ---
Subjective Subjective Interval history: see other notes this day. system added another note for me to sign Exam Vital Signs Temp Pulse Resp BP Pulse Ox O2 Del Method O2 Flow Rate 98.1 F 79 18 122/53 L 96 Nasal Cannula 2 08/12/24 04:00 08/12/24 09:23 08/12/24 06:50 08/12/24 09:23 08/12/24 06:50 08/12/24 04:00 08/12/24 06:50 Objective - Internal Medicine Labs 08/12/24 05:00 08/12/24 05:00 Labs: Laboratory Results - last 24 hr 08/12/24 05:00 WBC 21.0 H RBC 3.32 L Hgb 9.7 L Hct 29.2 L MCV 88 MCH 29.2 MCHC 33.2 RDW Std Deviation 62.4 H Plt Count 361 D Neut % (Auto) 84 H Lymph % (Auto) 5 L [place] % (Auto) 7 Eos % (Auto) 2 Baso % (Auto) 0 Neut # (Auto) 17.6 H Lymph # (Auto) 1.1 [place] # (Auto) 1.4 H Eos # (Auto) 0.5 Baso # (Auto) 0.1 Immature Gran # (Auto) 0.36 H Absolute Nucleated RBC 0.00 Immature Gran % 2 H Nucleated RBC % 0 Sodium 137 Potassium 4.3 D Chloride 100 Carbon Dioxide 29.1 Anion Gap 8 BUN 17 Creatinine 0.8 Estim Creat Clear Calc 70.9 eGFR > 60 BUN/Creatinine Ratio 21 H Glucose 91 Calculated Osmolality 275 Calcium 8.1 L Corrected Calcium 9.3 Magnesium 2.0 Total Bilirubin 1.6 H AST 114 H ALT 77 H Alkaline Phosphatase 250 H Total Protein 6.2 Albumin 2.5 L Globulin 3.7 H Albumin/Globulin Ratio 0.7 L ABG Interpretation ABG results: 08/08/24 18:32 ABG pH 7.46 H ABG pCO2 47 ABG pO2 54 L* ABG HCO3 33 H ABG O2 Saturation 88 L ABG Base Excess 8 H Assessment & Plan A&P Narrative hep panel neg. hep c repeatedly neg too bili falling. ok to change to empiric augmentin 875 bid for remainder of 7d rx for pneumonia will check in wed if she remains in house. biliary stent may require gi f/u. no need to f/u with ID Time Spent With Patient Time: Total time spent is greater than 50% in coordination of care (as documented) at patient's floor/unit and/or counseling patient:
--- NOTE | 2024-08-12 10:41 | ESPR_ITS ---
<Statement entered by Loly Mcguire MD - 08/16/24 14:49> I reviewed above note and agree with findings and plans. I have also personally examined the patient with medicine team and went over assessment and plan with medical team including marketing summer intern and resident physician. Documentation for date of: 08/12/24 Subjective Subjective Interval history: No acute overnight events. Seen and examined at bedside in telemetry and patient A&O x 3, denies any abdominal pain, chest pain, worsening shortness of breath. Continues to have chronic pain, however, due to concerns that it affects her mentation she is currently on 15 mg morphine ER BID. O2 requirements continue to be at her baseline of 2 L NC. Will continue to hold lasix at this time and I/O last 24 hours of 750/1100. WBC up trended from 18 to 21, T. bili, ALP, AST, and ALT all continue to slowly downtrend and will continue to monitor patient. Exam Vital Signs Temp Pulse Resp BP Pulse Ox O2 Del Method O2 Flow Rate 98.1 F 79 18 122/53 L 96 Nasal Cannula 2 08/12/24 04:00 08/12/24 09:23 08/12/24 06:50 08/12/24 09:23 08/12/24 06:50 08/12/24 04:00 08/12/24 06:50 Narrative Exam General: alert and oriented x 3, in discomfort from pain HEENT: dry mucous membranes, NC/AT, bilateral sclera anicteric Cardiovascular: regular rate and rhythm, S1/S2 present, no murmurs appreciated, trace edema b/l Pulmonary: lungs clear to auscultation, no rales/rhonchi Abdominal: obese soft, non-tender, non-distended, no rebound/guarding, normal bowel sounds present Musculoskeletal: normal ROM, no peripheral edema Skin: chronic venous stasis changes, warm and dry, intact, no rashes Objective Labs 08/12/24 05:00 08/12/24 05:00 Labs: Laboratory Results - last 24 hr 08/12/24 05:00 WBC 21.0 H RBC 3.32 L Hgb 9.7 L Hct 29.2 L MCV 88 MCH 29.2 MCHC 33.2 RDW Std Deviation 62.4 H Plt Count 361 D Neut % (Auto) 84 H Lymph % (Auto) 5 L [place] % (Auto) 7 Eos % (Auto) 2 Baso % (Auto) 0 Neut # (Auto) 17.6 H Lymph # (Auto) 1.1 [place] # (Auto) 1.4 H Eos # (Auto) 0.5 Baso # (Auto) 0.1 Immature Gran # (Auto) 0.36 H Absolute Nucleated RBC 0.00 Immature Gran % 2 H Nucleated RBC % 0 Sodium 137 Potassium 4.3 D Chloride 100 Carbon Dioxide 29.1 Anion Gap 8 BUN 17 Creatinine 0.8 Estim Creat Clear Calc 70.9 eGFR > 60 BUN/Creatinine Ratio 21 H Glucose 91 Calculated Osmolality 275 Calcium 8.1 L Corrected Calcium 9.3 Magnesium 2.0 Total Bilirubin 1.6 H AST 114 H ALT 77 H Alkaline Phosphatase 250 H Total Protein 6.2 Albumin 2.5 L Globulin 3.7 H Albumin/Globulin Ratio 0.7 L ABG Interpretation ABG results: 08/08/24 18:32 ABG pH 7.46 H ABG pCO2 47 ABG pO2 54 L* ABG HCO3 33 H ABG O2 Saturation 88 L ABG Base Excess 8 H Quality Measures Quality Measures VTE prophylaxis Advance care planning discussed with:: patient Assessment & Plan Assessment Current Active Medications: Generic Name Dose Route Start Last Admin Trade Name Freq PRN Reason Stop Dose Admin Acetaminophen 650 mg 07/23/24 15:30 08/05/24 11:19 Acetaminophen 325 Mg Tablet PO 08/22/24 15:29 650 mg Q6H PRN Administration PAIN OR FEVER > 100.4 Protocol Albuterol/Ipratropium 3 ml 07/27/24 13:32 07/29/24 09:21 Albuterol/Ipratropium (Duoneb) Rt Lauren 3 Ml Nebu INH 08/24/24 08:44 3 ml Q4HRRT PRN Administration wheezing, shortness of breath Amiodarone HCl 200 mg 07/31/24 21:00 08/12/24 09:22 Amiodarone Hcl 200 Mg Tablet PO 08/30/24 20:59 200 mg BID GHADA Administration Buspirone HCl 15 mg 07/24/24 10:57 07/30/24 13:25 Buspirone Hcl 5 Mg Tablet PO 08/23/24 10:56 15 mg TID PRN Administration Anxiety Carvedilol 3.125 mg 08/08/24 08:00 08/12/24 08:31 Carvedilol 3.125 Mg Tablet PO 09/07/24 07:59 3.125 mg BIDWM GHADA Administration Duloxetine HCl 60 mg 07/24/24 21:00 08/12/24 09:22 Duloxetine Hcl 30 Mg Capsule PO 08/23/24 20:59 60 mg BID GHADA Administration Furosemide 40 mg 07/27/24 13:45 08/11/24 08:16 Furosemide 40 Mg Tablet PO 08/26/24 13:44 40 mg BID GHADA Administration Gabapentin 100 mg 07/28/24 09:00 08/12/24 05:28 Gabapentin 100 Mg Capsule PO 08/27/24 08:59 100 mg TID GHADA Administration Guaifenesin 100 mg 08/09/24 21:00 08/12/24 09:21 Guaifenesin Syrup 200 Mg/10 Ml Udc PO 09/08/24 20:59 100 mg BID GHADA Administration Protocol Piperacillin/Tazobactam/Dextrose 3.375 gm in 50 mls @ 12.5 mls/hr 08/07/24 22:00 08/12/24 05:29 Zosyn IV 08/14/24 21:59 12.5 mls/hr Q8HR GHADA Administration Lactulose 20 gm 08/11/24 07:11 08/12/24 05:29 Lactulose Syrup 20 Gm/30 Ml Udc PO 09/09/24 09:59 20 gm TID GHADA Administration Protocol Melatonin 3 mg 07/31/24 21:00 08/11/24 21:51 Melatonin 3 Mg Tablet PO 08/30/24 20:59 3 mg HS GHADA Administration Methimazole 5 mg 07/23/24 09:00 08/06/24 09:49 Methimazole 5 Mg Tablet PO 08/22/24 08:59 5 mg DAILY GHADA Administration Morphine Sulfate 15 mg 08/08/24 09:00 08/12/24 09:22 Morphine Sulf 15 Mg Tabcr PO 08/13/24 08:59 15 mg QDAY GHADA Administration Ondansetron HCl 4 mg 07/23/24 15:34 07/23/24 16:49 Ondansetron Inj 2 Mg/Ml Inj 2 Ml IV 08/22/24 15:33 4 mg Q6H PRN Administration NAUSEA OR VOMITING Protocol Pantoprazole Sodium 40 mg 07/24/24 09:00 08/12/24 09:22 Pantoprazole 40 Mg Tablet PO 08/23/24 08:59 40 mg QDAY GHADA Administration Rivaroxaban 20 mg 07/25/24 17:30 08/11/24 19:14 Rivaroxaban 10 Mg Tablet PO 08/24/24 17:29 20 mg WSUPPER GHADA Administration Spironolactone 25 mg 07/25/24 09:00 08/12/24 09:23 Spironolactone 25 Mg Tablet PO 08/24/24 08:59 25 mg QDAY GHADA Administration Ursodiol 300 mg 07/27/24 12:00 08/12/24 05:29 Ursodiol 300 Mg Capsule PO 08/26/24 11:59 300 mg QID GHADA Administration Plan Nneka Burciaga is a 74-year-old female with a past medical history of COPD on 2 L home oxygen, HFpEF (55-60% on 11/2023), a-fib on Xarelto, hypertension, and chronic pain who presented to the ED on 07/22 status-post multiple ground-level falls at home and found to have enlarged CBD on imaging, admitted for further work-up. #Acute encephalopathy secondary to infectious process vs delirium?improving Oriented x3 but takes multiple times to ask questions to get answers and appears lethargic at bedside. Ordered ramirez CT with findings of pneumonia and fluid overload but no significant changes from CT A/P taken on 08/02. Patient has becoming weaker as well and has been in the same location for many days in a row at this time, suspect component of delirium. Ammonia wnl, TSH low but T4 normal. ? Reorient patient frequently, lights on during day and off during night, encourage family to reorient when possible ? Consider CT head if no improvement ? C. difficile negative #Right middle lobe pneumonia #Leukocytosis, reactive vs inflammatory vs infective process, improving CT C/A/P 08/07 showed vascular congestion with diffuse pulmonary edema, pneumonia of the right middle lobe biliary stent in satisfactory position, signs of pancreatitis, right thyromegaly with multiple bilateral thyroid nodules. CT A/P 08/02 showed edema around pancreas, pneumobilia, bibasilar pneumonia with small pleural effusions. Repeat HIDA scan showed isotope activity in small bowel without enlargement of common hepatic or common bile duct. Zosyn (07/27-08/05, 08/07-), vancomycin (07/28-08/05), Augmentin (08/05-08/07) Syphilis negative, cocci IgM negative (pending IgG), hep panel negative, HCV negative, C. difficile negative ? ID consulted, appreciate recommendations ? Zosyn (08/07-) ? Azithromycin (08/07-) #Enlarged CBD #History of cholecystectomy #Transaminitis?improving #Hyperbilirubinemia?improving #Biliary stricture s/p stent No fever, chills, nausea, vomiting, abdominal pain, change in bowel habits. Gallbladder ultrasound: Enlarged CBD 1.2 cm. MRCP: Extrahepatic biliary tract dilatation with abrupt termination at distal CBD. HIDA scan showed a large common hepatic and CBD, although contrast in small bowel. ERCP 08/01: upper third of main bile duct markedly dilated secondary to stricture and middle third of main bile duct contained single moderate stenosis; biliary sphincterotomy made and 1 stent 1 internal flap placed in CBD ? GI consulted, appreciate recommendations ? Repeat blood culture 08/01: NGTD ? Will need repeat ERCP with [facility] outpatient to examine CBD and with possible biopsy ? Ursodiol 300 mg p.o. q6h #HFpEF (EF 55-60% on 11/2023) Follows-up with Dr. Browning outpatient. Not in exacerbation and not overloaded at this time. Initial BNP 395. Repeat CXR on 08/02 showed interval development of pulmonary edema vs pneumonia Echo on 08/07: EF 60%, normal LV size and function, mildly dilated left atrium. RV size mildly increased but normal systolic function. RVSP 46 mmHg. Mild MR, TR. ? Cardiology consulted, appreciate recommendations ? Spironolactone 25 mg p.o. daily ? Carvedilol 3.125 mg p.o. BIDWM ? Lasix 40 mg IV BID -> HELD ? Strict I's and O's, daily weights, low sodium diet, fliud restriction (1.5 L/day) #Atrial fibrillation, on Xarelto and amiodarone ? Amiodarone 200 mg p.o. BID ? Xarelto resumed #COPD on 2 L home O2 Does not have any inhalers at home per son. ? Duonebs as needed #History of hypertension ? Blood pressure within range #Chronic pain ? Gabapentin 100 mg p.o. 3 times daily ? Duloxetine 60 mg p.o. twice daily ? Morphine sulfate 15 mg p.o. in AM and 15 mg p.o. HS ? [place] 5 q6h prn #Urinary tract infection, resolved UA showed turbid urine, 2+ blood, 23 RBC, WBC 966, 3+ bacteria, hyaline casts present. Repeat UA showed no signs of infection but now with 1+ bilirubin. Urine culture: Klebsiella pneumonia ->received full course of antibiotics #Acute kidney injury, prerenal vs intrarenal, resolved #Rhabdomyolysis, improving Found down at home after fall, may have been for a couple of hours per history. Initial CK 3500. Received 3 L IVF per sepsis protocol and an additional 1 L afterwards. Hospital management: Disposition: status-post ERCP, improving labs and symptoms, anticipate discharge within 72 hours Diet: high calorie/protein diet (1.5 L fluid restriction), ensure Lines: PIV DVT prophylaxis: SCDs GI prophylaxis: pantoprazole 40 mg po daily CODE STATUS: DNR/DNI ----- Plan discussed with attending physician Dr. Maynor Smith MD PGY-1 Internal Medicine
--- NOTE | 2024-08-12 15:42 | PC.SS ---
Rounding Note: Plan is to continue to monitor labs. PT evaluation is pending.
[2024-08-12] MEDS: RIVAROXABAN 10 MG TABLET 20 MG PO (16:44)
[2024-08-12] MEDS: MELATONIN 3 MG TABLET PO (21:39)
--- NOTE | 2024-08-12 23:23 | ESPR_ITS ---
RE: NNEKA BURCIAGA : 1950 DATE OF SERVICE: 08/12/2024 SUBJECTIVE: Nneka Burciaga is doing a little better. She is still having some shortness of breath, but no chest pain, doing much better. Today, she is not complaining of any other issues. She remains in atrial fibrillation, rate controlled well. White count continues to be slightly elevated. The LFTs are slowly downtrending. Abdominal pain is still present, but not much better than the other day. PHYSICAL EXAMINATION: Vital Signs: Shows blood pressure 130/60, pulse rate is 70, respiratory rate 18, and temperature normal. HEENT: Head is atraumatic. Neck: Supple. Lungs: Decreased breath sounds. Heart: Sounds irregular. Abdomen: Thin and soft. Extremities: Normal. LABORATORY DATA: Showed white count 21,000 and hemoglobin 9.7, stable. Creatinine and BUN are normal. IMPRESSION: 1. atrial fibrillation, controlled well. 2. Common bile duct obstruction with status post endoscopic retrograde cholangiopancreatography __persistent white count elevation, however. RECOMMENDATIONS: Continue with the present medication and Infectious Disease also following the patient. Cardiac lutz stable. DT: 21:44:44 TT: 23:18:00 Ref: [id number] - TID: [id number] [facility]
[2024-08-13] VITALS (11 sets, daily range): BP systolic 113–140; BP diastolic 66–90; PULSE 67–103; RESP 18–22; TEMP 36–36.5; O2SAT 68–97
[2024-08-13] MEDS: PIPER/TAZO 3.375 GM PREMIX 3.375 GM/50 ML BAG IV (05:39)
[2024-08-13] MEDS: ursodioL 300 MG CAPSULE PO ×4 (05:40→20:57)
[2024-08-13] MEDS: GABAPENTIN 100 MG CAPSULE PO (05:40)
[2024-08-13] MEDS: LACTULOSE SYRUP 20 GM/30 ML UDC PO ×3 (05:40→21:01)
[2024-08-13 05:50] LABS: Basophils # (Auto) 0.1 Thou/mm3 (0.0-0.2); Basophils % (Auto) 0 % (0-2.5); Eosinophils # (Auto) 0.4 Thou/mm3 (0.0-0.5); Eosinophils % (Auto) 2 % (0-10); Hematocrit 31.9 % (36.0-46.0); Hemoglobin 10.6 g/dL (12.0-16.0); Immature Granulocytes % (Auto) 1 % (0-0); Immature Granulocytes Auto 0.22 Thou/mm3 (0.00-0.00); Lymphocytes # (Auto) 1.2 Thou/mm3 (1.0-4.8); Lymphocytes % (Auto) 6 % (10-50); Mean Corpuscular HGB Conc 33.2 g/dl (31.0-37.0); Mean Corpuscular Hemoglobin 29.9 pg (25.0-35.0); Mean Corpuscular Volume 90 fL (80-100); Monocytes # (Auto) 1.4 Thou/mm3 (0.0-0.8); Monocytes % (Auto) 6 % (0-12); Neutrophils # (Auto) 18.8 Thou/mm3 (1.8-7.7); Neutrophils % (Auto) 85 % (37-80); Nucleated Red Blood Cell % 0 /100 WBC (0); Platelet Count 450 Thou/mm3 (140-440); RDW Standard Deviation 65.3 fL (36.4-46.3); Red Blood Count 3.55 Miln/mm3 (4.00-5.20); White Blood Count 22.1 Thou/mm3 (3.6-11.0)
[2024-08-13 06:33] LABS: Alanine Aminotransferase 76 U/L (10-49); Albumin, Serum 2.7 gm/dL (3.4-4.8); Albumin/Globulin Ratio 0.7 (1.2-2.2); Alkaline Phosphatase 249 U/L (46-116); Anion Gap 6 (7-16); Aspartate Amino Transferase 113 U/L (0-34); BUN/Creatinine Ratio 20 Ratio (12-20); Bilirubin,Total 1.7 mg/dL (0.3-1.2); Blood Urea Nitrogen 16 mg/dL (9-23); Calcium 8.4 mg/dL (8.3-10.6); Calcium (Corrected) 9.4 mg/dL (8.5-10.1); Carbon Dioxide 29.1 mMol/L (20.0-31.0); Chloride 100 mMol/L (98-107); Creatinine (Component) 0.8 mg/dL (0.6-1.3); Estimated Creatinine Clearance 70.9 mL/min (>60); Glucose 87 mg/dL (74-106); Magnesium 2.1 mg/dL (1.6-2.6); Osmolality,Calculated 270 (275-295); Phosphorous 2.6 mg/dL (2.4-5.1); Potassium 4.4 mMol/L (3.4-5.1); Sodium 135 mMol/L (136-145); Total Protein 6.7 gm/dL (5.7-8.2); eGFR > 60 See Note
[2024-08-13] MEDS: guaiFENesin SYRUP 200 MG/10 ML UDC 100 MG PO ×2 (08:48→20:56)
[2024-08-13] MEDS: SPIRONOLACTONE 25 MG TABLET PO (08:49)
[2024-08-13] MEDS: carVEDILOL 3.125 MG TABLET PO ×2 (08:49→19:11)
[2024-08-13] MEDS: PANTOPRAZOLE 40 MG TABLET PO (08:49)
[2024-08-13] MEDS: AMIODARONE HCL 200 MG TABLET PO ×2 (08:49→20:56)
[2024-08-13] MEDS: DULoxetine HCL 30 MG CAPSULE 60 MG PO (08:49)
[2024-08-13] MEDS: Morphine Sulf 15 MG TABCR PO ×2 (08:56→20:57)
--- NOTE | 2024-08-13 09:13 | ESPR_ITS ---
<Statement entered by Loly Mcguire MD - 08/18/24 09:32> I reviewed above note and agree with findings and plans. I have also personally examined the patient with medicine team and went over assessment and plan with medical team including tax intern and resident physician. Documentation for date of: 08/13/24 Subjective Subjective Interval history: No acute overnight events. Seen and examined at bedside and patient continues to be in pain but likely due to chronic issues. She denies any worsening shortness of breath or abdominal pain. Vital signs stable, currently on 1 L nasal cannula which is better than her baseline and afebrile overnight. Leukocytosis continues to wax and wane, currently 22 today but hemoglobin stable. CHEM panel showed stable T. bili, alk phos, AST, and ALT. Will order Pro-[place]ark to evaluate for concurrent inflammatory process, stop antibiotics today and evaluate for spiking fevers and white count, hold duloxetine and increase gabapentin as possible contributor to leukocytosis, DC [place] and exchange for pure wick. Exam Vital Signs Temp Pulse Resp BP Pulse Ox O2 Del Method O2 Flow Rate 97.2 F 77 19 121/67 91 L Nasal Cannula 1 08/13/24 08:00 08/13/24 08:49 08/13/24 08:00 08/13/24 08:49 08/13/24 08:00 08/13/24 08:00 08/13/24 08:00 Narrative Exam General: alert and oriented x 3, in discomfort from pain HEENT: dry mucous membranes, NC/AT, bilateral sclera anicteric Cardiovascular: regular rate and rhythm, S1/S2 present, no murmurs appreciated, trace edema b/l Pulmonary: lungs clear to auscultation, no rales/rhonchi Abdominal: obese soft, non-tender, non-distended, no rebound/guarding, normal bowel sounds present Musculoskeletal: normal ROM, no peripheral edema Skin: chronic venous stasis changes, warm and dry, intact, no rashes Objective Labs 08/13/24 05:35 08/13/24 05:35 Labs: Laboratory Results - last 24 hr 08/13/24 05:35 WBC 22.1 H RBC 3.55 L Hgb 10.6 L Hct 31.9 L MCV 90 MCH 29.9 MCHC 33.2 RDW Std Deviation 65.3 H Plt Count 450 H D Neut % (Auto) 85 H Lymph % (Auto) 6 L [place] % (Auto) 6 Eos % (Auto) 2 Baso % (Auto) 0 Neut # (Auto) 18.8 H Lymph # (Auto) 1.2 [place] # (Auto) 1.4 H Eos # (Auto) 0.4 Baso # (Auto) 0.1 Immature Gran # (Auto) 0.22 H Absolute Nucleated RBC 0.00 Immature Gran % 1 H Nucleated RBC % 0 Sodium 135 L Potassium 4.4 Chloride 100 Carbon Dioxide 29.1 Anion Gap 6 L BUN 16 Creatinine 0.8 Estim Creat Clear Calc 70.9 eGFR > 60 BUN/Creatinine Ratio 20 Glucose 87 Calculated Osmolality 270 L Calcium 8.4 Corrected Calcium 9.4 Phosphorus 2.6 Magnesium 2.1 Total Bilirubin 1.7 H AST 113 H ALT 76 H Alkaline Phosphatase 249 H Total Protein 6.7 Albumin 2.7 L Globulin 4.0 H Albumin/Globulin Ratio 0.7 L ABG Interpretation ABG results: 08/08/24 18:32 ABG pH 7.46 H ABG pCO2 47 ABG pO2 54 L* ABG HCO3 33 H ABG O2 Saturation 88 L ABG Base Excess 8 H Quality Measures Quality Measures VTE prophylaxis Advance care planning discussed with:: patient Assessment & Plan Assessment Current Active Medications: Generic Name Dose Route Start Last Admin Trade Name Freq PRN Reason Stop Dose Admin Acetaminophen 650 mg 07/23/24 15:30 08/05/24 11:19 Acetaminophen 325 Mg Tablet PO 08/22/24 15:29 650 mg Q6H PRN Administration PAIN OR FEVER > 100.4 Protocol Albuterol/Ipratropium 3 ml 07/27/24 13:32 07/29/24 09:21 Albuterol/Ipratropium (Duoneb) Rt Lauren 3 Ml Nebu INH 08/24/24 08:44 3 ml Q4HRRT PRN Administration wheezing, shortness of breath Amiodarone HCl 200 mg 07/31/24 21:00 08/13/24 08:49 Amiodarone Hcl 200 Mg Tablet PO 08/30/24 20:59 200 mg BID GHADA Administration Buspirone HCl 15 mg 07/24/24 10:57 07/30/24 13:25 Buspirone Hcl 5 Mg Tablet PO 08/23/24 10:56 15 mg TID PRN Administration Anxiety Carvedilol 3.125 mg 08/08/24 08:00 08/13/24 08:49 Carvedilol 3.125 Mg Tablet PO 09/07/24 07:59 3.125 mg BIDWM GHADA Administration Duloxetine HCl 60 mg 07/24/24 21:00 08/13/24 08:49 Duloxetine Hcl 30 Mg Capsule PO 08/23/24 20:59 60 mg BID GHADA Administration Furosemide 40 mg 07/27/24 13:45 08/11/24 08:16 Furosemide 40 Mg Tablet PO 08/26/24 13:44 40 mg BID GHADA Administration Gabapentin 100 mg 07/28/24 09:00 08/13/24 05:40 Gabapentin 100 Mg Capsule PO 08/27/24 08:59 100 mg TID GHADA Administration Guaifenesin 100 mg 08/09/24 21:00 08/13/24 08:48 Guaifenesin Syrup 200 Mg/10 Ml Udc PO 09/08/24 20:59 100 mg BID GHADA Administration Protocol Piperacillin/Tazobactam/Dextrose 3.375 gm in 50 mls @ 12.5 mls/hr 08/07/24 22:00 08/13/24 05:39 Zosyn IV 08/14/24 21:59 12.5 mls/hr Q8HR GHADA Administration Lactulose 20 gm 08/11/24 07:11 08/13/24 05:40 Lactulose Syrup 20 Gm/30 Ml Udc PO 09/09/24 09:59 20 gm TID GHADA Administration Protocol Melatonin 3 mg 07/31/24 21:00 08/12/24 21:39 Melatonin 3 Mg Tablet PO 08/30/24 20:59 3 mg HS GHADA Administration Methimazole 5 mg 07/23/24 09:00 08/06/24 09:49 Methimazole 5 Mg Tablet PO 08/22/24 08:59 5 mg DAILY GHADA Administration Morphine Sulfate 15 mg 08/13/24 09:00 08/13/24 08:56 Morphine Sulf 15 Mg Tabcr PO 08/18/24 08:59 15 mg BID GHADA Administration Ondansetron HCl 4 mg 07/23/24 15:34 07/23/24 16:49 Ondansetron Inj 2 Mg/Ml Inj 2 Ml IV 08/22/24 15:33 4 mg Q6H PRN Administration NAUSEA OR VOMITING Protocol Pantoprazole Sodium 40 mg 07/24/24 09:00 08/13/24 08:49 Pantoprazole 40 Mg Tablet PO 08/23/24 08:59 40 mg QDAY GHADA Administration Rivaroxaban 20 mg 07/25/24 17:30 08/12/24 16:44 Rivaroxaban 10 Mg Tablet PO 08/24/24 17:29 20 mg WSUPPER GHADA Administration Spironolactone 25 mg 07/25/24 09:00 08/13/24 08:49 Spironolactone 25 Mg Tablet PO 08/24/24 08:59 25 mg QDAY GHADA Administration Ursodiol 300 mg 07/27/24 12:00 08/13/24 05:40 Ursodiol 300 Mg Capsule PO 08/26/24 11:59 300 mg QID GHADA Administration Plan Nneka Burciaga is a 74-year-old female with a past medical history of COPD on 2 L home oxygen, HFpEF (55-60% on 11/2023), a-fib on Xarelto, hypertension, and chronic pain who presented to the ED on 07/22 status-post multiple ground-level falls at home and found to have enlarged CBD on imaging, admitted for further work-up. #Leukocytosis, reactive vs inflammatory vs infective process, improving CT C/A/P 08/07 showed vascular congestion with diffuse pulmonary edema, pneumonia of the right middle lobe biliary stent in satisfactory position, signs of pancreatitis, right thyromegaly with multiple bilateral thyroid nodules. CT A/P 08/02 showed edema around pancreas, pneumobilia, bibasilar pneumonia with small pleural effusions. Repeat HIDA scan showed isotope activity in small bowel without enlargement of common hepatic or common bile duct. Zosyn (07/27-08/05, 08/07-), vancomycin (07/28-08/05), Augmentin (08/05-08/07) Syphilis negative, cocci IgM negative (pending IgG), hep panel negative, HCV negative, C. difficile negative ? ID consulted, appreciate recommendations ? Zosyn (08/07-) -> stopped to evaluate feveer spikes and/or changes in leukocytosis ? Follow-up procal ? Exchanged [place] for purewick #Acute encephalopathy secondary to infectious process vs delirium, resolved Oriented x3 but takes multiple times to ask questions to get answers and appears lethargic at bedside. Ordered ramirez CT with findings of pneumonia and fluid overload but no significant changes from CT A/P taken on 08/02. Patient has becoming weaker as well and has been in the same location for many days in a row at this time, suspect component of delirium. Ammonia wnl, TSH low but T4 normal. C. difficile negative. ? Reorient patient frequently, lights on during day and off during night, encourage family to reorient when possible ? Consider CT head if no improvement #Enlarged CBD #History of cholecystectomy #Transaminitis?improving #Hyperbilirubinemia?improving #Biliary stricture s/p stent No fever, chills, nausea, vomiting, abdominal pain, change in bowel habits. Gallbladder ultrasound: Enlarged CBD 1.2 cm. MRCP: Extrahepatic biliary tract dilatation with abrupt termination at distal CBD. HIDA scan showed a large common hepatic and CBD, although contrast in small bowel. ERCP 08/01: upper third of main bile duct markedly dilated secondary to stricture and middle third of main bile duct contained single moderate stenosis; biliary sphincterotomy made and 1 stent 1 internal flap placed in CBD ? GI consulted, appreciate recommendations ? Repeat blood culture 08/01: NGTD ? Will need repeat ERCP with [facility] outpatient to examine CBD and with possible biopsy ? Ursodiol 300 mg p.o. q6h #HFpEF (EF 55-60% on 11/2023) Follows-up with Dr. Browning outpatient. Not in exacerbation and not overloaded at this time. Initial BNP 395. Repeat CXR on 08/02 showed interval development of pulmonary edema vs pneumonia Echo on 08/07: EF 60%, normal LV size and function, mildly dilated left atrium. RV size mildly increased but normal systolic function. RVSP 46 mmHg. Mild MR, TR. ? Cardiology consulted, appreciate recommendations ? Spironolactone 25 mg p.o. daily ? Carvedilol 3.125 mg p.o. BIDWM ? Lasix 40 mg IV BID -> HELD ? Strict I's and O's, daily weights, low sodium diet, fliud restriction (1.5 L/day) #Atrial fibrillation, on Xarelto and amiodarone ? Amiodarone 200 mg p.o. BID ? Xarelto resumed #COPD on 2 L home O2 Does not have any inhalers at home per son. ? Duonebs as needed #History of hypertension ? Blood pressure within range #Chronic pain ? Gabapentin 200 mg p.o. 2 times daily ? Duloxetine 60 mg p.o. twice daily -> HELD ? Morphine sulfate 15 mg p.o. in AM and 15 mg p.o. HS ? [place] 5 q6h prn #Urinary tract infection, resolved UA showed turbid urine, 2+ blood, 23 RBC, WBC 966, 3+ bacteria, hyaline casts present. Repeat UA showed no signs of infection but now with 1+ bilirubin. Urine culture: Klebsiella pneumonia ->received full course of antibiotics #Acute kidney injury, prerenal vs intrarenal, resolved #Rhabdomyolysis, improving Found down at home after fall, may have been for a couple of hours per history. Initial CK 3500. Received 3 L IVF per sepsis protocol and an additional 1 L afterwards. Hospital management: Disposition: status-post ERCP, improving labs and symptoms, anticipate discharge within 72 hours Diet: high calorie/protein diet (1.5 L fluid restriction), ensure Lines: PIV DVT prophylaxis: SCDs GI prophylaxis: pantoprazole 40 mg po daily CODE STATUS: DNR/DNI ----- Plan discussed with attending physician Dr. Maynor Smith MD PGY-1 Internal Medicine
--- NOTE | 2024-08-13 10:44 | XR_ITS ---
Examination: Venous duplex upper extremity sonogram, bilateral. Date and time of exam: August 13, 2024 1352 hours INDICATIONS: Bilateral arm pain 2 weeks Technique: Multiple sonographic images of the deep venous system have been obtained. B-mode/2-D grayscale imaging of vascular structures and Doppler spectral analysis (waveforms) and color performed Both legs are examined. Findings: Deep venous systems do not demonstrate abnormal echogenicity. All visualized deep veins exhibit compressibility. All visualized deep veins exhibit augmentation. Impression: Negative for deep vein thrombosis
--- NOTE | 2024-08-13 11:07 | PC.SS ---
Updated PT note submitted to [facility] on [employer] platform.
[2024-08-13 11:33] LABS: Procalcitonin 0.33 ng/ml (0.0-0.49)
--- NOTE | 2024-08-13 14:36 | PC.SS ---
Rounding Note: D/C on hold due to patient's elevated WBC. Plan to continue treating infection.
[2024-08-13] MEDS: RIVAROXABAN 10 MG TABLET 20 MG PO (19:10)
[2024-08-13] MEDS: GABAPENTIN 100 MG CAPSULE 200 MG PO (20:57)
[2024-08-13] MEDS: MELATONIN 3 MG TABLET PO (20:57)
[2024-08-14] VITALS (13 sets, daily range): BP systolic 99–136; BP diastolic 58–77; PULSE 67–91; RESP 14–20; TEMP 35.7–36.2; O2SAT 94–100; BMI 12.0; BMI 39.7
--- NOTE | 2024-08-14 02:38 | ESPR_ITS ---
RE: NNEKA BURCIAGA : 1950 DATE OF SERVICE: 08/13/2024 SUBJECTIVE: Nneka Burciaga still appears to be recovering slowly. History of multiple medical problems, atrial fibrillation, now in chronic A-fib mode and admitted to the hospital with multiple problems including sepsis with cholangitis. ERCP performed. She is making gradual, but steadily improvement. She still has leukocytosis, possibly reactive. She has a bilirubin stricture and stent placement. She has had history of congestive heart fairly, well compensated, mainly HFpEF with preserved ejection fraction. Continues to feel about the same, not complaining of any shortness of breath or chest pain. Her rapid rate is still poor. She is requiring minimal oxygen. Her lab data shows white count is high, but persistent 22,000. Chemistry panel shows creatinine of 0.8. Renal function normal. LFTs are slightly elevated. AST 113, ALT 76, alkaline phosphatase still elevated to , and bilirubin level has come down 1.7, procalcitonin also down 0.338. Clinical exam is essentially unchanged. OBJECTIVE: General: She is alert, awake, and in no acute distress. Vital Signs: Her blood pressure is 120/68, pulse rate is 70, respiratory rate is 18, and temperature normal. Neck: Supple. No JVD. Lungs: Decreased breath sounds. No rales. Heart: S1 and S2 regular. No gallop. Abdomen: Thin and soft. Extremities: Mild edema. IMPRESSION: 1. Atrial fibrillation, rate controlled. 2. Heart failure with preserved ejection fraction, well-compensated. 3. Common bile duct obstruction, relieved with improvement of enzymes. RECOMMENDATIONS: Continue with antibiotic therapy. She is making slow progress. We will continue to monitor the patient closely, but cardiac lutz stable. DT: 23:44:23 TT: 00:14:00 Ref: [id number] - TID: [id number]
[2024-08-14 05:33] LABS: Basophils # (Auto) 0.1 Thou/mm3 (0.0-0.2); Basophils % (Auto) 0 % (0-2.5); Eosinophils # (Auto) 0.8 Thou/mm3 (0.0-0.5); Eosinophils % (Auto) 4 % (0-10); Hematocrit 32.4 % (36.0-46.0); Hemoglobin 10.3 g/dL (12.0-16.0); Immature Granulocytes % (Auto) 1 % (0-0); Lymphocytes # (Auto) 1.3 Thou/mm3 (1.0-4.8); Lymphocytes % (Auto) 6 % (10-50); Mean Corpuscular HGB Conc 31.8 g/dl (31.0-37.0); Mean Corpuscular Hemoglobin 29.4 pg (25.0-35.0); Mean Corpuscular Volume 93 fL (80-100); Monocytes # (Auto) 1.6 Thou/mm3 (0.0-0.8); Monocytes % (Auto) 8 % (0-12); Neutrophils # (Auto) 17.3 Thou/mm3 (1.8-7.7); Neutrophils % (Auto) 81 % (37-80); Nucleated Red Blood Cell % 0 /100 WBC (0); Platelet Count 416 Thou/mm3 (140-440); RDW Standard Deviation 70.5 fL (36.4-46.3); White Blood Count 21.3 Thou/mm3 (3.6-11.0)
[2024-08-14] MEDS: ursodioL 300 MG CAPSULE PO ×4 (05:53→21:04)
[2024-08-14 06:51] LABS: Alanine Aminotransferase 77 U/L (10-49); Albumin, Serum 2.5 gm/dL (3.4-4.8); Albumin/Globulin Ratio 0.7 (1.2-2.2); Alkaline Phosphatase 250 U/L (46-116); Anion Gap 8 (7-16); Aspartate Amino Transferase 117 U/L (0-34); BUN/Creatinine Ratio 20 Ratio (12-20); Bilirubin,Total 1.6 mg/dL (0.3-1.2); Blood Urea Nitrogen 16 mg/dL (9-23); Calcium 8.3 mg/dL (8.3-10.6); Calcium (Corrected) 9.5 mg/dL (8.5-10.1); Chloride 101 mMol/L (98-107); Creatinine (Component) 0.8 mg/dL (0.6-1.3); Estimated Creatinine Clearance 70.9 mL/min (>60); Globulin 3.7 gm/dL (2.3-3.5); Glucose 73 mg/dL (74-106); Osmolality,Calculated 274 (275-295); Phosphorous 2.9 mg/dL (2.4-5.1); Potassium 4.8 mMol/L (3.4-5.1); Sodium 137 mMol/L (136-145); Total Protein 6.2 gm/dL (5.7-8.2); eGFR > 60 See Note
--- NOTE | 2024-08-14 07:45 | PC.NURSE ---
Pt transferred from 273 to 381. morning vitals stable, report given to TERESO Jean.
[2024-08-14] MEDS: guaiFENesin SYRUP 200 MG/10 ML UDC 100 MG PO ×2 (08:06→21:05)
[2024-08-14] MEDS: Morphine Sulf 15 MG TABCR PO ×2 (08:07→21:05)
[2024-08-14] MEDS: AMIODARONE HCL 200 MG TABLET PO ×2 (08:07→21:05)
[2024-08-14] MEDS: PANTOPRAZOLE 40 MG TABLET PO (08:07)
[2024-08-14] MEDS: GABAPENTIN 100 MG CAPSULE 200 MG PO ×2 (08:08→21:04)
[2024-08-14] MEDS: carVEDILOL 3.125 MG TABLET PO ×2 (08:08→17:24)
[2024-08-14] MEDS: SPIRONOLACTONE 25 MG TABLET PO (08:08)
--- NOTE | 2024-08-14 10:32 | XR_ITS ---
Examination: Abdomen sonogram, Limited Date and time of exam: August 14, 2024 1220 hours INDICATIONS: Elevated bilirubin on laboratory examination 2 days ago, history cholecystectomy and biliary stent Technique: Real-time valdez scale transabdominal sonographic images of the upper abdomen obtained. Findings: Stent visualized, bile duct 10 mm Pancreatic head 3.1 cm Liver 16.2 cm hepatopedal flow Fatty infiltration in the liver Patent IVC IMPRESSION: Prominent common bile duct 10 mm with stent noted Consider MRCP follow-up
--- NOTE | 2024-08-14 11:04 | ESPR_ITS ---
<Statement entered by Loly Mcguire MD - 08/22/24 13:33> I reviewed above note and agree with findings and plans. I have also personally examined the patient with medicine team and went over assessment and plan with medical team including senior internal auditor and resident physician. Documentation for date of: 08/14/24 Subjective Subjective Interval history: No acute overnight events. Seen and examined at bedside in [facility] and patient states that she feels slightly better today compared to prior. PT in the room and will work with patient to help improve strength. Antibiotics stopped yesterday and no spikes in fever and white count down trended slightly and will continue with the same. Otherwise, T. bili, ALP, AST, ALT are remaining stable but continued to be elevated and will reevaluate with gallbladder ultrasound. Will continue to monitor for improvement. Exam Vital Signs Temp Pulse Resp BP Pulse Ox O2 Del Method O2 Flow Rate 97.0 F 80 19 130/67 99 Nasal Cannula 2 08/14/24 09:00 08/14/24 09:00 08/14/24 09:00 08/14/24 09:00 08/14/24 09:00 08/14/24 09:00 08/14/24 09:00 Narrative Exam General: alert and oriented x 3, in discomfort from pain HEENT: dry mucous membranes, NC/AT, bilateral sclera anicteric Cardiovascular: regular rate and rhythm, S1/S2 present, no murmurs appreciated, trace edema b/l Pulmonary: lungs clear to auscultation, no rales/rhonchi Abdominal: obese soft, non-tender, non-distended, no rebound/guarding, normal bowel sounds present Musculoskeletal: normal ROM, no peripheral edema Skin: chronic venous stasis changes, warm and dry, intact, no rashes Objective Labs 08/14/24 05:12 08/14/24 05:12 Labs: Laboratory Results - last 24 hr 08/13/24 08/14/24 05:35 05:12 WBC 21.3 H RBC 3.50 L Hgb 10.3 L Hct 32.4 L MCV 93 MCH 29.4 MCHC 31.8 RDW Std Deviation 70.5 H Plt Count 416 D Neut % (Auto) 81 H Lymph % (Auto) 6 L [place] % (Auto) 8 Eos % (Auto) 4 Baso % (Auto) 0 Neut # (Auto) 17.3 H Lymph # (Auto) 1.3 [place] # (Auto) 1.6 H Eos # (Auto) 0.8 H Baso # (Auto) 0.1 Immature Gran # (Auto) 0.20 H Absolute Nucleated RBC 0.00 Immature Gran % 1 H Nucleated RBC % 0 Sodium 137 Potassium 4.8 Chloride 101 Carbon Dioxide 28.0 Anion Gap 8 BUN 16 Creatinine 0.8 Estim Creat Clear Calc 70.9 eGFR > 60 BUN/Creatinine Ratio 20 Glucose 73 L Calculated Osmolality 274 L Calcium 8.3 Corrected Calcium 9.5 Phosphorus 2.9 Magnesium 2.0 Total Bilirubin 1.6 H AST 117 H ALT 77 H Alkaline Phosphatase 250 H Total Protein 6.2 Albumin 2.5 L Globulin 3.7 H Albumin/Globulin Ratio 0.7 L Procalcitonin 0.33 ABG Interpretation ABG results: 08/08/24 18:32 ABG pH 7.46 H ABG pCO2 47 ABG pO2 54 L* ABG HCO3 33 H ABG O2 Saturation 88 L ABG Base Excess 8 H Quality Measures Quality Measures VTE prophylaxis Advance care planning discussed with:: patient Assessment & Plan Assessment Current Active Medications: Generic Name Dose Route Start Last Admin Trade Name Freq PRN Reason Stop Dose Admin Acetaminophen 650 mg 07/23/24 15:30 08/05/24 11:19 Acetaminophen 325 Mg Tablet PO 08/22/24 15:29 650 mg Q6H PRN Administration PAIN OR FEVER > 100.4 Protocol Albuterol/Ipratropium 3 ml 07/27/24 13:32 07/29/24 09:21 Albuterol/Ipratropium (Duoneb) Rt Lauren 3 Ml Nebu INH 08/24/24 08:44 3 ml Q4HRRT PRN Administration wheezing, shortness of breath Amiodarone HCl 200 mg 07/31/24 21:00 08/14/24 08:07 Amiodarone Hcl 200 Mg Tablet PO 08/30/24 20:59 200 mg BID GHADA Administration Buspirone HCl 15 mg 07/24/24 10:57 07/30/24 13:25 Buspirone Hcl 5 Mg Tablet PO 08/23/24 10:56 15 mg TID PRN Administration Anxiety Carvedilol 3.125 mg 08/08/24 08:00 08/14/24 08:08 Carvedilol 3.125 Mg Tablet PO 09/07/24 07:59 3.125 mg BIDWM GHADA Administration Duloxetine HCl 60 mg 07/24/24 21:00 08/13/24 08:49 Duloxetine Hcl 30 Mg Capsule PO 08/23/24 20:59 60 mg BID GHADA Administration Furosemide 40 mg 07/27/24 13:45 08/11/24 08:16 Furosemide 40 Mg Tablet PO 08/26/24 13:44 40 mg BID GHADA Administration Gabapentin 200 mg 08/13/24 21:00 08/14/24 08:08 Gabapentin 100 Mg Capsule PO 09/12/24 20:59 200 mg BID GHADA Administration Guaifenesin 100 mg 08/09/24 21:00 08/14/24 08:06 Guaifenesin Syrup 200 Mg/10 Ml Udc PO 09/08/24 20:59 100 mg BID GHADA Administration Protocol Piperacillin/Tazobactam/Dextrose 3.375 gm in 50 mls @ 12.5 mls/hr 08/07/24 22:00 08/13/24 19:31 Zosyn IV 08/14/24 21:59 Infused Q8HR GHADA Infusion Lactulose 20 gm 08/11/24 07:11 08/14/24 05:23 Lactulose Syrup 20 Gm/30 Ml Udc PO 09/09/24 09:59 Not Given TID GHADA Protocol Melatonin 3 mg 07/31/24 21:00 08/13/24 20:57 Melatonin 3 Mg Tablet PO 08/30/24 20:59 3 mg HS GHADA Administration Methimazole 5 mg 07/23/24 09:00 08/06/24 09:49 Methimazole 5 Mg Tablet PO 08/22/24 08:59 5 mg DAILY GHADA Administration Morphine Sulfate 15 mg 08/13/24 09:00 08/14/24 08:07 Morphine Sulf 15 Mg Tabcr PO 08/18/24 08:59 15 mg BID GHADA Administration Ondansetron HCl 4 mg 07/23/24 15:34 07/23/24 16:49 Ondansetron Inj 2 Mg/Ml Inj 2 Ml IV 08/22/24 15:33 4 mg Q6H PRN Administration NAUSEA OR VOMITING Protocol Pantoprazole Sodium 40 mg 07/24/24 09:00 08/14/24 08:07 Pantoprazole 40 Mg Tablet PO 08/23/24 08:59 40 mg QDAY GHADA Administration Rivaroxaban 20 mg 07/25/24 17:30 08/13/24 19:10 Rivaroxaban 10 Mg Tablet PO 08/24/24 17:29 20 mg WSUPPER GHADA Administration Spironolactone 25 mg 07/25/24 09:00 08/14/24 08:08 Spironolactone 25 Mg Tablet PO 08/24/24 08:59 25 mg QDAY GHADA Administration Ursodiol 300 mg 07/27/24 12:00 08/14/24 05:53 Ursodiol 300 Mg Capsule PO 08/26/24 11:59 300 mg QID GHADA Administration Plan Nneka Burciaga is a 74-year-old female with a past medical history of COPD on 2 L home oxygen, HFpEF (55-60% on 11/2023), a-fib on Xarelto, hypertension, and chronic pain who presented to the ED on 07/22 status-post multiple ground-level falls at home and found to have enlarged CBD on imaging, admitted for further work-up. #Leukocytosis, reactive vs inflammatory vs infective process, improving CT C/A/P 08/07 showed vascular congestion with diffuse pulmonary edema, pneumonia of the right middle lobe biliary stent in satisfactory position, signs of pancreatitis, right thyromegaly with multiple bilateral thyroid nodules. CT A/P 08/02 showed edema around pancreas, pneumobilia, bibasilar pneumonia with small pleural effusions. Repeat HIDA scan showed isotope activity in small bowel without enlargement of common hepatic or common bile duct. Zosyn (07/27-08/05, 08/07-), vancomycin (07/28-08/05), Augmentin (08/05-08/07) Syphilis negative, cocci IgM negative (pending IgG), hep panel negative, HCV negative, C. difficile negative ? ID consulted, appreciate recommendations ? Zosyn (08/07-) -> stopped to evaluate feveer spikes and/or changes in leukocytosis ? Repeat procal negative ? Exchanged Delgado for purewick #Enlarged CBD #History of cholecystectomy #Transaminitis?improving #Hyperbilirubinemia?improving #Biliary stricture s/p stent No fever, chills, nausea, vomiting, abdominal pain, change in bowel habits. Gallbladder ultrasound: Enlarged CBD 1.2 cm. MRCP: Extrahepatic biliary tract dilatation with abrupt termination at distal CBD. HIDA scan showed a large common hepatic and CBD, although contrast in small bowel. ERCP 08/01: upper third of main bile duct markedly dilated secondary to stricture and middle third of main bile duct contained single moderate stenosis; biliary sphincterotomy made and 1 stent 1 internal flap placed in CBD ? GI consulted, appreciate recommendations ? Repeat blood culture 08/01: NGTD ? Will need repeat ERCP with [facility] outpatient to examine CBD and with possible biopsy ? Ursodiol 300 mg p.o. q6h ? Follow-up repeat gallbladder US #HFpEF (EF 55-60% on 11/2023) Follows-up with Dr. Browning outpatient. Not in exacerbation and not overloaded at this time. Initial BNP 395. Repeat CXR on 08/02 showed interval development of pulmonary edema vs pneumonia Echo on 08/07: EF 60%, normal LV size and function, mildly dilated left atrium. RV size mildly increased but normal systolic function. RVSP 46 mmHg. Mild MR, TR. ? Cardiology consulted, appreciate recommendations ? Spironolactone 25 mg p.o. daily ? Carvedilol 3.125 mg p.o. BIDWM ? Lasix 40 mg IV BID -> HELD ? Strict I's and O's, daily weights, low sodium diet, fliud restriction (1.5 L/day) #Atrial fibrillation, on Xarelto and amiodarone ? Amiodarone 200 mg p.o. BID ? Xarelto resumed #COPD on 2 L home O2 Does not have any inhalers at home per son. ? Duonebs as needed #History of hypertension ? Blood pressure within range #Chronic pain ? Gabapentin 200 mg p.o. 2 times daily ? Duloxetine 60 mg p.o. twice daily -> HELD ? Morphine sulfate 15 mg p.o. in AM and 15 mg p.o. HS ? Fults 5 q6h prn #Urinary tract infection, resolved UA showed turbid urine, 2+ blood, 23 RBC, WBC 966, 3+ bacteria, hyaline casts present. Repeat UA showed no signs of infection but now with 1+ bilirubin. Urine culture: Klebsiella pneumonia ->received full course of antibiotics #Acute kidney injury, prerenal vs intrarenal, resolved #Rhabdomyolysis, improving Found down at home after fall, may have been for a couple of hours per history. Initial CK 3500. Received 3 L IVF per sepsis protocol and an additional 1 L afterwards. #Acute encephalopathy likely secondary to morphine, resolved Oriented x3 but takes multiple times to ask questions to get answers and appears lethargic at bedside. Ordered ramirez CT with findings of pneumonia and fluid overload but no significant changes from CT A/P taken on 08/02. Patient has becoming weaker as well and has been in the same location for many days in a row at this time, suspect component of delirium. Ammonia wnl, TSH low but T4 normal. C. difficile negative. ? Reorient patient frequently, lights on during day and off during night, encourage family to reorient when possible ? Consider CT head if no improvement Hospital management: Disposition: status-post ERCP, improving labs and symptoms, anticipate discharge within 72 hours Diet: high calorie/protein diet (1.5 L fluid restriction), ensure Lines: PIV DVT prophylaxis: SCDs GI prophylaxis: pantoprazole 40 mg po daily CODE STATUS: DNR/DNI ----- Plan discussed with attending physician Dr. Maynor Smith MD PGY-1 Internal Medicine
[2024-08-14] MEDS: ACETAMINOPHEN 325 MG TABLET 650 MG PO (12:18)
--- NOTE | 2024-08-14 13:43 | PD.IDPROG ---
Subjective Subjective Interval history: here since 07/23. still. odd. wbc high but presumably had steroids. on zosyn from 08/07. it is currently on hold since 08/13 so I stopped it as wbc has been static even w/o it ongoing Exam Vital Signs Temp Pulse Resp BP Pulse Ox O2 Del Method O2 Flow Rate 97.0 F 78 20 130/67 99 Nasal Cannula 2 08/14/24 09:00 08/14/24 11:55 08/14/24 11:55 08/14/24 09:00 08/14/24 11:55 08/14/24 09:00 08/14/24 11:55 Narrative Exam limited eval today, wbc static overall. did she get steroids?if so, why are you checking wbc daily? Objective - Internal Medicine Labs 08/14/24 05:12 08/14/24 05:12 Labs: Laboratory Results - last 24 hr 08/14/24 05:12 WBC 21.3 H RBC 3.50 L Hgb 10.3 L Hct 32.4 L MCV 93 MCH 29.4 MCHC 31.8 RDW Std Deviation 70.5 H Plt Count 416 D Neut % (Auto) 81 H Lymph % (Auto) 6 L [place] % (Auto) 8 Eos % (Auto) 4 Baso % (Auto) 0 Neut # (Auto) 17.3 H Lymph # (Auto) 1.3 [place] # (Auto) 1.6 H Eos # (Auto) 0.8 H Baso # (Auto) 0.1 Immature Gran # (Auto) 0.20 H Absolute Nucleated RBC 0.00 Immature Gran % 1 H Nucleated RBC % 0 Sodium 137 Potassium 4.8 Chloride 101 Carbon Dioxide 28.0 Anion Gap 8 BUN 16 Creatinine 0.8 Estim Creat Clear Calc 70.9 eGFR > 60 BUN/Creatinine Ratio 20 Glucose 73 L Calculated Osmolality 274 L Calcium 8.3 Corrected Calcium 9.5 Phosphorus 2.9 Magnesium 2.0 Total Bilirubin 1.6 H AST 117 H ALT 77 H Alkaline Phosphatase 250 H Total Protein 6.2 Albumin 2.5 L Globulin 3.7 H Albumin/Globulin Ratio 0.7 L ABG Interpretation ABG results: 08/08/24 18:32 ABG pH 7.46 H ABG pCO2 47 ABG pO2 54 L* ABG HCO3 33 H ABG O2 Saturation 88 L ABG Base Excess 8 H Assessment & Plan A&P Narrative hep panel neg. hep c repeatedly neg too bili falling. finished abx. stopped zosyn home ok with me biliary stent may require gi f/u. no need to f/u with ID if gi wants more abx. than augmentin 875 po bid ok till stent removed will see again prn Time Spent With Patient Time: Total time spent is greater than 50% in coordination of care (as documented) at patient's floor/unit and/or counseling patient:
[2024-08-14] MEDS: LACTULOSE SYRUP 20 GM/30 ML UDC PO ×2 (14:08→21:05)
--- NOTE | 2024-08-14 15:31 | PC.SS ---
Rounding Note: Plan is for patient to obtain abdominal ultra sound. Possible d/c to SNF tomorrow.
[2024-08-14] MEDS: RIVAROXABAN 10 MG TABLET 20 MG PO (17:16)
[2024-08-14] MEDS: BALSAM PERU/CASTOR OIL (Venelex) 60 GM TUBE TOP (21:04)
[2024-08-14] MEDS: MELATONIN 3 MG TABLET PO (21:05)
[2024-08-15] VITALS (8 sets, daily range): BP systolic 114–129; BP diastolic 62–75; PULSE 67–85; RESP 17–20; TEMP 36.1–36.5; O2SAT 93–97
[2024-08-15] MEDS: ACETAMINOPHEN 325 MG TABLET 650 MG PO (01:04)
[2024-08-15] MEDS: BusPIRone HCL 5 MG TABLET 15 MG PO (01:07)
--- NOTE | 2024-08-15 01:26 | ESPR_ITS ---
RE: HE DELACRUZ : 1950 DATE OF SERVICE: 08/14/2024 SUBJECTIVE: The patient is in room 381, little better. She is still having some shortness of breath, but improved. No chest pain. Cardiac lutz, she is stable. Atrial fibrillation is persistent. Rate controlled well . Infectious disease, Dr. Gallo following he patient as well. The patient has been still on combination of diuretics and steroids for inflammation and the patient remains in AFib rate control well, noncompliant with chest pain, shortness of breath. Cardiac lutz, she is stable overall. The patient was seen by Dr. Gallo and felt that steroid therapy. The patient is cleared and patient will be discharged home and GI followup will also be recommended because of biliary stent. Clinically, overall, she is doing about the same. OBJECTIVE: Vital Signs: Blood pressure is stable at 130/60, pulse rate 70, respiratory rate 20, temperature normal. Neck: Supple. Lungs: Decreased breath sounds. Heart: Irregular. Abdomen: Thin. Extremities: No edema. ASSESSMENT: 1. Atrial fibrillation, rate controlled. 2. Infection with cholangitis and bile duct obstruction, requiring biliary a stent, possible questionable malignancy per GI. 3. Hypertension. 4. Obesity. 5. Hyperthyroidism. PLAN: Continue present medications including amiodarone 200 mg for atrial fibrillation, twice daily, carvedilol low dose 3.125 mg b.i.d., furosemide has been held since the heart failure improved, spironolactone 25 mg will be continued. Continue Xarelto 20 mg daily because of atrial fibrillation. She can be discharged and will keep her regular followup appointment in my office DT: 22:55:20 TT: 23:33:00 Ref: [id number] - TID: [id number] MTDD
[2024-08-15] MEDS: ursodioL 300 MG CAPSULE PO (05:09)
[2024-08-15] MEDS: LACTULOSE SYRUP 20 GM/30 ML UDC PO (05:09)
[2024-08-15 05:39] LABS: Alanine Aminotransferase 67 U/L (10-49); Albumin, Serum 2.6 gm/dL (3.4-4.8); Albumin/Globulin Ratio 0.7 (1.2-2.2); Alkaline Phosphatase 218 U/L (46-116); Anion Gap 9 (7-16); Aspartate Amino Transferase 115 U/L (0-34); BUN/Creatinine Ratio 17 Ratio (12-20); Bilirubin,Total 1.5 mg/dL (0.3-1.2); Blood Urea Nitrogen 12 mg/dL (9-23); Calcium 8.4 mg/dL (8.3-10.6); Calcium (Corrected) 9.5 mg/dL (8.5-10.1); Carbon Dioxide 25.1 mMol/L (20.0-31.0); Chloride 104 mMol/L (98-107); Creatinine (Component) 0.7 mg/dL (0.6-1.3); Estimated Creatinine Clearance 81.1 mL/min (>60); Globulin 3.6 gm/dL (2.3-3.5); Glucose 74 mg/dL (74-106); Magnesium 2.1 mg/dL (1.6-2.6); Osmolality,Calculated 274 (275-295); Phosphorous 3.1 mg/dL (2.4-5.1); Sodium 138 mMol/L (136-145); Total Protein 6.2 gm/dL (5.7-8.2); eGFR > 60 See Note
[2024-08-15 06:05] LABS: Basophils # (Auto) 0.1 Thou/mm3 (0.0-0.2); Basophils % (Auto) 0 % (0-2.5); Eosinophils # (Auto) 0.6 Thou/mm3 (0.0-0.5); Eosinophils % (Auto) 3 % (0-10); Hematocrit 30.5 % (36.0-46.0); Hemoglobin 9.6 g/dL (12.0-16.0); Immature Granulocytes % (Auto) 1 % (0-0); Immature Granulocytes Auto 0.11 Thou/mm3 (0.00-0.00); Lymphocytes # (Auto) 1.1 Thou/mm3 (1.0-4.8); Lymphocytes % (Auto) 6 % (10-50); Mean Corpuscular HGB Conc 31.5 g/dl (31.0-37.0); Mean Corpuscular Hemoglobin 29.8 pg (25.0-35.0); Mean Corpuscular Volume 95 fL (80-100); Monocytes # (Auto) 1.6 Thou/mm3 (0.0-0.8); Monocytes % (Auto) 9 % (0-12); Neutrophils # (Auto) 15.1 Thou/mm3 (1.8-7.7); Neutrophils % (Auto) 81 % (37-80); Nucleated Red Blood Cell % 0 /100 WBC (0); Platelet Count 314 Thou/mm3 (140-440); Red Blood Count 3.22 Miln/mm3 (4.00-5.20); White Blood Count 18.7 Thou/mm3 (3.6-11.0)
[2024-08-15] MEDS: GABAPENTIN 100 MG CAPSULE 200 MG PO (08:35)
[2024-08-15] MEDS: PANTOPRAZOLE 40 MG TABLET PO (08:35)
[2024-08-15] MEDS: AMIODARONE HCL 200 MG TABLET PO (08:35)
[2024-08-15] MEDS: carVEDILOL 3.125 MG TABLET PO (08:35)
[2024-08-15] MEDS: guaiFENesin SYRUP 200 MG/10 ML UDC 100 MG PO (08:35)
[2024-08-15] MEDS: Morphine Sulf 15 MG TABCR PO (08:36)
[2024-08-15] MEDS: SPIRONOLACTONE 25 MG TABLET PO (08:36)
[2024-08-15] MEDS: BALSAM PERU/CASTOR OIL (Venelex) 60 GM TUBE TOP (08:39)
--- NOTE | 2024-08-15 10:30 | PC.SS ---
Addendum entered by GEMMA Faust 08/15/24 11:21: Patient notified at bed side of ETA and patient son Santana called back, made him aware of d/c to [place] today. Addendum entered by GEMMA Faust 08/15/24 10:41: PASRR was sent via e-file exchange to [facility]. Updated clinicals to be sent via [employer]. Original Note: SS follow up: patient ready for d/c to [facility]. [facility] transport reference [id number]. ETA 12:30pm with [facility]. Bed side Kale notified, Ebonie at SNF notified. Left a voicemail for patient's son Santana to make aware.
--- NOTE | 2024-08-15 11:17 | ESDS_ITS ---
<Statement entered by Loly Mcguire MD - 08/22/24 13:35> I reviewed above note and agree with findings and plans. I have also personally examined the patient with medicine team and went over assessment and plan with medical team including mechanical intern and resident physician. Planned Discharge Date 08/15/24 DS: Providers Provider Date of admission: 07/23/24 15:30 Primary care physician: Domenic Mcmahan MD Admitting Provider: Cas Stokes DO Attending Provider on Admission: Loly Mcguire MD Consults: 07/23/24 15:51 Consult to Cardiology Routine Comment: Consulting Provider: Jason Browning 07/23/24 19:31 Referral Physical Therapy Routine Comment: Physician Instructions: 07/24/24 18:26 Consult to Gastroenterology Routine Comment: Consulting Provider: Eladio Ramirez 07/25/24 08:40 Referral Physical Therapy Routine Comment: Recurrent falls at home Physician Instructions: 07/25/24 16:12 Referral - Senior Staff Specialized Employment Routine Service Needed for Transfer: Gastroenterology Addl Comments:: Nneka Burciaga is a 74-year-old female with a past medical history of COPD on 2 L home oxygen, HFpEF (55-60% on 11/2023), a-fib on Xarelto, hypertension, and chronic pain who presented to the ED on 07/22 status-post multiple ground-level falls at home. CT scans of spine and face negative for fractures, CT head negative for hemorrhage. However, labs showed elevated total bilirubin and ALP so gallbladder US obtained and showed enlarged CBD. MRCP showed the same with abrupt termination at the distal CBD. HIDA scan showed enlarged common hepatic and common bile duct, although contrast is present in small bowel. Thus, radiation control specialist recommending transfer to tertiary center in order to obtain ERCP with [facility] to evaluate for possible cholangiocarcinoma in distal CBD. 08/02/24 11:55 Consult to Infectious Diseases Routine Comment: Worsening leukocytosis s/p ERCP Consulting Provider: Kelvin Gallo 08/03/24 14:28 Referral Registered Dietitian Routine Comment: 08/07/24 08:00 Referral Wound Care Routine Comment: Attending Provider on DC: Jose Manuel Smith MD Discharging Provider: Jose Manuel Smith MD DS: Diagnosis Problem List Completed Was Problem List Reviewed/Reconciled?: Yes Hospital Course Hospital Course Hospital course: Nneka Burciaga is a 74-year-old female with a past medical history of COPD on 2 L home oxygen, HFpEF (55-60% on 11/2023), a-fib on Xarelto, hypertension, and chronic pain who presented to the ED on 07/22 status-post multiple ground-level falls at home and found to have enlarged CBD on imaging and admitted for further work-up. Gallbladder US and MRCP both showed dilated common bowel duct. HIDA scan also obtained and showed large common hepatic and CBD with some contrast in small bowel. Patient eventually underwent ERCP on 08/01 that showed upper third of main bile duct markedly dilated secondary to stricture and middle third of main bile duct contained single moderate stenosis; biliary sphincterotomy made and 1 stent 1 internal flap placed in CBD. However, afterwards patient's white count began to elevate and peaked at 44.6. Repeat imaging showed signs of pancreatitis but lipase was found to be insignificant and patient denied any epigastric pain that radiated to the back. Otherwise, imaging did not reveal anything significant. T. bili, alk phos, AST, and ALT all started to uptrend after ERCP but eventually began to downtrend on day of discharge. She received prolonged course of broad-spectrum antibiotics and other than pansensitive Klebsiella pneumoniae from urine culture, all other cultures were negative and patient did not develop any fevers. Prolonged hospital course was to monitor patient as leukocytosis was persistently elevated but she underwent extensive evaluation, including ramirez-scan and repeat gallbladder US that did not reveal anything significant. Additionally, spoke to radiation control specialist, Dr. Carrillo, and in agreement that leukocytosis likely secondary to procedure and pancreatic inflammation as seen on imaging. On day of discharge, leukocytosis improved, t bili, ALP, AST, and ALT all also downtrended. She will need to follow-up with Dr. Carrillo and obtain referral to obtain ERCP with [facility] for further evaluation of CBD dilatation. Diagnoses during admission: #Leukocytosis, reactive vs inflammatory vs infective process, improving #Enlarged CBD s/p ERCP #History of cholecystectomy #Transaminitis?improving #Hyperbilirubinemia?improving #Biliary stricture s/p stent #HFpEF (EF 55-60% on 11/2023) #Atrial fibrillation, on Xarelto and amiodarone #COPD on 2 L home O2 #History of hypertension #Chronic pain #Urinary tract infection, resolved #Acute kidney injury, prerenal vs intrarenal, resolved #Rhabdomyolysis, improving #Acute encephalopathy likely secondary to morphine, resolved Discharge instructions: ? Your morphine has been changed to 15 mg twice daily ? Hold furosemide 40 mg until you follow-up with your PCP ? Continue taking all home medications as prescribed ? Follow-up with PCP within 1-2 weeks of discharge ? Follow-up with GI, Dr. Carrillo, within 4 weeks of discharge ? Will need repeat ERCP with [facility] outpatient to examine CBD and with possible biopsy ? Recommend to obtain referral for heme-onc to further evaluate persistently elevated white blood cell count ? If you do not have a PCP, you can follow-up at the [facility] (you can call [phone] to make an appointment) ? If you wish to follow-up with Dr. Smith, schedule appointment on Monday afternoons ? Return to ED if symptoms worsen or recur ----- Plan discussed with attending physician Dr. Maynor Smith MD PGY-1 Internal Medicine Time Spent with Patient Time attestation: Total time spent providing and/or coordinating discharge services: Time spent: Greater than 30 minutes Exam Vital Signs Temp Pulse Resp BP Pulse Ox O2 Del Method O2 Flow Rate 97.7 F 73 18 129/69 95 Nasal Cannula 1 08/15/24 08:00 08/15/24 08:36 08/15/24 08:00 08/15/24 08:36 08/15/24 08:00 08/15/24 08:00 08/15/24 08:00 Narrative Exam General: alert and oriented x 3, in discomfort from pain HEENT: dry mucous membranes, NC/AT, bilateral sclera anicteric Cardiovascular: regular rate and rhythm, S1/S2 present, no murmurs appreciated, trace edema b/l Pulmonary: lungs clear to auscultation, no rales/rhonchi Abdominal: obese soft, non-tender, non-distended, no rebound/guarding, normal bowel sounds present Musculoskeletal: normal ROM, no peripheral edema, 3/5 strength in upper extremities Skin: chronic venous stasis changes, warm and dry, intact, no rashes Discharge Plan Plan Patient Disposition: Xfer Skilled Nsg Fac (SNF) Care Plan Goals: ? Your morphine has been changed to 15 mg twice daily ? Hold furosemide 40 mg until you follow-up with your PCP ? Continue taking all home medications as prescribed ? Follow-up with PCP within 1-2 weeks of discharge ? Follow-up with GI, Dr. Carrillo, within 4 weeks of discharge ? Will need repeat ERCP with [facility] outpatient to examine CBD and with possible biopsy ? Recommend to obtain referral for heme-onc to further evaluate persistently elevated white blood cell count ? If you do not have a PCP, you can follow-up at the [facility] (you can call [phone] to make an appointment) ? If you wish to follow-up with Dr. Smith, schedule appointment on Monday afternoons ? Return to ED if symptoms worsen or recur Prescriptions/Referrals Prescriptions/Med Rec: Continued spironolactone 25 mg tablet 25 mg PO QDAY amiodarone 200 mg Tablet 200 mg PO BID potassium chloride 10 mEq Capsule, Extended Release 10 meq PO BID gabapentin 100 mg capsule 100 mg PO TID duloxetine 60 mg capsule,delayed release(DR/EC) 60 mg PO BID Patient Comments: TAKE ONE CAPSULE BY MOUTH EVERY DAY buspirone 15 mg tablet 15 mg PO TID PRN (Reason: Anxiety) Patient Comments: TAKE ONE TABLET BY MOUTH THREE TIMES DAILY NEEDED FOR ANXIETY Xarelto 20 mg tablet 20 mg PO HS Patient Comments: TAKE ONE TABLET BY MOUTH EVERY EVENING WITH FOOD carvedilol 3.125 mg tablet 3.125 mg PO BIDAC Patient Comments: TAKE ONE TABLET BY MOUTH WITH FOOD TWICE DAILY FOR BLOOD PRESSURE Changed morphine 30 mg tablet extended release 15 mg PO Q12H MDD 90 mg 30 Days Qty: 30 0RF Rx Instructions: 15 mg orally; Held furosemide 40 mg Tablet See Rx Instructions .ROUTE .COMPLEX Hold Instructions: Resume on 08/29/24. Rx Instructions: TAKE ONE TABLET BY MOUTH AT ten IN THE MORNING AND TAKE ONE TABLET BY MOUTH AT FOUR IN THE AFTERNOON Discontinued spironolactone [Aldactone] 25 mg tablet 25 mg PO QDAY Referrals: Domenic Mcmahan MD [Primary Care Provider] - Patient/Caregiver Discharge Instructions Meds to Beds: No Discharge Activity: as per physical therapy and wear oxygen at all times Education Materials: Urinary Tract Infections in Women, ERCP Dc Print Language: Togolese Stand Alone Forms: Deborah Award Info., Patient Portal Info Letter Discharge Order Discharge Orders: Discharge (Routine); Ordered 08/15/24 Ordered By: Jose Manuel Smith Quality Discharge Quality Measures VTE prophylaxis
== END 2024-08-15 13:05 | disposition skilled nursing facility (03) | DRG 871 ==
LOC: SERX 07-23 15:43 → SERHOLD 07-23 15:47 → S2NX 07-23 18:03 → S3NX 07-27 23:50 → S2NX 08-07 13:13 → S3SX 08-14 07:52
PROVIDERS: Emergency Medicine; Internal Medicine Gastroenterology; Internal Medicine Infectious Disease; Student in an Organized Health Care Education/Training Program; Admitting Provider Student in an Organized Health Care Education/Training Program; Emergency Provider Emergency Medicine; PCP Family Medicine; Visit Provider Internal Medicine
PROC: (CPT 43260; 2024-08-01 07:30)
DX: A41.50 Gram-negative sepsis, unspecified (principal); G92.8 Other toxic encephalopathy; K83.1 Obstruction of bile duct; J15.0 Pneumonia due to Klebsiella pneumoniae; I50.32 Chronic diastolic (congestive) heart failure; N39.0 Urinary tract infection, site not specified; N17.9 Acute kidney failure, unspecified; M62.82 Rhabdomyolysis; E87.1 Hypo-osmolality and hyponatremia; I48.20 Chronic atrial fibrillation, unspecified; J44.0 Chronic obstructive pulmonary disease with (acute) lower respiratory infection; K83.09 Other cholangitis; R29.6 Repeated falls; I11.0 Hypertensive heart disease with heart failure; I48.91 Unspecified atrial fibrillation; Z79.01 Long term (current) use of anticoagulants; Z90.49 Acquired absence of other specified parts of digestive tract; K82.8 Other specified diseases of gallbladder; G89.29 Other chronic pain; F17.210 Nicotine dependence, cigarettes, uncomplicated; R74.01 Elevation of levels of liver transaminase levels; E05.90 Thyrotoxicosis, unspecified without thyrotoxic crisis or storm; Z99.81 Dependence on supplemental oxygen; Y92.009 Unspecified place in unspecified non-institutional (private) residence as the place of occurrence of the external cause; F17.200 Nicotine dependence, unspecified, uncomplicated; I48.0 Paroxysmal atrial fibrillation; M54.30 Sciatica, unspecified side; T40.2X5A Adverse effect of other opioids, initial encounter; Z66 Do not resuscitate; Z79.899 Other long term (current) drug therapy; Z90.710 Acquired absence of both cervix and uterus; W18.30XA Fall on same level, unspecified, initial encounter
CPT/HCPCS: 36415; 36600; 70450; 70486; 71045; 71250; 71260; 72125; 72128; 72131; 74176; 74177; 74330; 76705; 78227; 80053; 80061; 80069; 80074; 80076; 80202; 80307; 80320; 81001; 82140; 82248; 82550; 82607; 82746; 82803; 83605; 83615; 83690; 83735; 83880; 84100; 84132; 84134; 84145; 84439; 84443; 84484; 85025; 85652; 86140; 86301; 86331; 86580; 86635; 86780; 86803; 87040; 87077; 87081; 87086; 87186; 87400; 87493; 87811; 93005; 93225; 93306; 93970; 94640; 94664; 94762; 97162; 99291; A4217; A4649; A9270; A9537; C1889; C2617; J0696; J1100; J1611; J2270; J2371; J2405; J2543; J2704; J3010; J3370; J3475; J3490; J7030; J7040; J7120; Q9967; S8037; 74181; G0480; J1805

== ENCOUNTER 2024-09-07 13:27 | Inpatient (IN) | payer MEDICARE, MEDICAID, SELFPAY ==
[2024-09-07] VITALS (16 sets, daily range): BP systolic 91–124; BP diastolic 50–76; PULSE 75–111; RESP 16–25; TEMP 36.7; O2SAT 90–98; BMI 37.4; BMI 34.0
--- NOTE | 2024-09-07 13:51 | PD.EDSOB ---
ED SOB =RME/HPI General Chief Complaint: Shortness of Breath/Dyspnea Stated Complaint: FAILURE TO THRIVE Time Seen by Provider: 09/07/24 13:38 Arrival date/time: 09/07/24 13:27 Limitations: no limitations RME / HPI RME / HPI Narrative: 74 year old female with history of HFpEF 60% (07/2024), AFib on Xarelto, COPD on 2L home oxygen, hypertension, and chronic pain presents to the ED BIBA from [facility] for evaluation of failure to thrive. Per medics report, family were visiting patient today and reported that the patient was refusing to eat, appeared sluggish and short of breath. Evidently while visiting the patient yesterday she was at her usual state of health. On scene, the patient was saturating 90% on 2L nasal cannula and was given a breathing treatment. During the treatment, her oxygen saturation improved to 93%, but it dropped back down to 90% once the treatment was completed. The patient was then switched to a high-flow oxy mask, with improvement to 92-93%. While in the ED, the patient is slow to respond but is able to answer questions appropriately. Patient complains of chest pain but denies shortness of breath or headache. Denies any fevers, chills, abdominal pain, diarrhea, or urinary symptoms. Related Data Home Medications ?Medication ?Instructions ?Recorded ?Confirmed potassium chloride 10 mEq 10 meq PO BID 09/08/17 07/24/24 capsule,extended release spironolactone 25 mg tablet 25 mg PO QDAY 12/22/20 07/24/24 furosemide 40 mg tablet See Rx Instructions .Route .COMPLEX 01/26/21 07/24/24 Held on 08/15/24. Instructions: Resume on 08/29/24. amiodarone 200 mg tablet 200 mg PO BID 07/15/21 07/24/24 duloxetine 60 mg capsule,delayed 60 mg PO BID 02/28/22 07/24/24 release gabapentin 100 mg capsule 100 mg PO TID 02/28/22 07/29/24 buspirone 15 mg tablet 15 mg PO TID PRN Anxiety 11/15/23 07/24/24 rivaroxaban 20 mg tablet (Xarelto) 20 mg PO HS 11/15/23 07/25/24 carvedilol 3.125 mg tablet 3.125 mg PO BIDAC 07/24/24 07/29/24 Previous Rx's ?Medication ?Instructions ?Recorded morphine 30 mg tablet,extended 15 mg (1/2 x 30 mg) PO Q12H 08/15/24 release chronic back pain 30 days #30 tabs Allergies Allergy/AdvReac Type Severity Reaction Status Date / Time doxycycline Allergy Verified 07/23/24 00:53 Review of Systems Review of Systems Systems Reviewed: All systems reviewed, normal except as documented Past Medical History Past Medical History CARDIAC: Positive Cardiac Disorders, Atrial Fibrillation, Hypercholesterolemia, Congestive Heart Failure, Edema, Hypertension and Varicose Veins RESPIRATORY: Positive Chronic Obstructive Pulmonary Disease (COPD) and Asthma (COPD) GASTROINTESTINAL: Positive Gastrointestinal Disorders, Gall Bladder Disease and Obesity REPRODUCTIVE: Positive Previous Pregnancies MUSCULOSKELETAL: Positive Musculoskeletal Disorders, Arthritis and Degenerative Disk Disease PSYCHO/SOCIAL: Positive Anxiety OTHER HISTORY: Positive Falls and Measles Family History FAMILY HISTORY: Positive Family Cardiac Disorders and Family Cancer Surgical History SURGICAL: Positive Ear Surgery and Abdominal Surgery Social History SMOKING STATUS: Never smoker SECOND HAND EXPOSURE: No SUBSTANCE USE: does not use ED Exam General Limitations: Present no limitations General appearance: Present alert and in no apparent distress Head Head exam: Present atraumatic, normocephalic and normal inspection Eye Eye exam: Present normal appearance, PERRL and EOMI ENT ENT exam: Present normal exam, normal oropharynx and mucous membranes moist Neck Neck exam: Present normal inspection, full ROM and trachea midline Chest Chest inspection: Present normal inspection and symmetric chest wall rise Respiratory Respiratory exam: Present other (bibasilar crackles ) Cardiovascular Cardiovascular exam: Present regular rate, normal rhythm and normal heart sounds Abdominal Exam Abdominal exam: Present soft and normal bowel sounds Extremities Exam Extremities exam: Present normal inspection Back Exam Back exam: Present normal inspection and full ROM Neurological Exam Neurological exam: Present alert, oriented X3 and CN II-XII intact Psychiatric Psychiatric exam: Present normal affect and normal mood Skin Skin exam: Present warm, dry, intact and normal color Course Quality Measures none Orders Category Date Time Status COVID-19 Screening Questionnaire NOW Care 09/07/24 17:50 Active Decision to Admit X1 Care 09/07/24 17:50 Active EKG (ED ONLY) *Do not use* NOW Care 09/07/24 13:42 Completed CXRP [XR chest 1V portable] Stat Exams 09/07/24 13:58 Completed EKG (ED Only) Stat Exams 09/07/24 13:42 Ordered ABG [Arterial Blood Gas] Stat Lab 09/07/24 14:37 Completed Blood Culture (Lab) Stat Lab 09/07/24 14:19 Received CBC [CBC] Stat Lab 09/07/24 16:00 Completed CK [Creatine Kinase] Stat Lab 09/07/24 16:00 Completed CMP [Comprehensive Metabolic Panel] Stat Lab 09/07/24 16:00 Completed Lactic Acid [Lactate (Lactic Acid)] Stat Lab 09/07/24 14:19 Completed Lactic Acid, 3 HR Stat Lab 09/07/24 17:54 Ordered Procalcitonin Stat Lab 09/07/24 16:00 Completed Troponin I Stat Lab 09/07/24 16:00 Completed UA, C/S IF [Urinalysis, C/S if Indicated] Stat Lab 09/07/24 13:58 Ordered Albuterol/Ipratr Rt Lauren [Duoneb Rt Lauren] Med 09/07/24 13:58 Discontinued 3 ml INH X1 ONE Hydrocortisone Sod Succ Inj [SoluCORTEF Inj] Med 09/07/24 13:58 Discontinued 100 mg IV X1 ONE Piper/Tazo 3.375 gm Premix [Zosyn] Med 09/07/24 22:00 Active 3.375 gm in 50 ml IV Q8HR Piper/Tazo Inj [Zosyn Inj] 4.5 gm Med 09/07/24 14:15 Discontinued Sodium Chloride 0.9% (Pop) [NS 0.9% mini bag] 100 ml IV X1 Ringers Lactated 1000 ml [Lactated Ringers] 1,000 ml Med 09/07/24 13:59 Active IV 125 mls/hr Vancomycin/Ns 1 gm Ivpb 200 ml Med 09/07/24 13:59 Discontinued IV X1 Vital Signs Vital signs: Vital Signs Pulse Rate 75 09/07/24 13:49 Respiratory Rate 17 09/07/24 13:49 Pulse Oximetry (%) 90 L 09/07/24 13:49 Shortness of Breath / Dyspnea MDM Narrative MDM Narrative:: Bibi Mahajan am scribing for and in the presence of Dr. Balderrama. Assessment: Hypoxia, CHF contributing to respiratory distress and hypoxia. Chronic atrial fibrillation currently managed on Xarelto. Currently on Cipro. Differential includes pneumonia and UTI. The patient is DNR and comfort measures are the primary goal of care. Plan: Blood cultures, antibiotics, continue to administer 15L oxygen via non-rebreather to address hypoxia, start maintenance fluids, DNR status and comfort measures in place, with a focus on symptom management. Patient has elevated WBC and chest xray shows pneumonia in the right base. I discussed results with patient and son at bedside. Son is requesting patient be admitted for IV antibiotics. Patient data External records reviewed:: [facility] previous records (I reviewed ED visit on 07/23/2024 through 08/15/2024 ), EMS form and Long-Term records (I reviewed pmhx and medication list from [facility] ) Clinical information provided by:: patient and EMS Social determinants that could affect healthcare access:: housing (SNF resident ) Patient has the following chronic illnesses:: HFpEF 60% (07/2024), AFib on Xarelto, COPD on 2L home oxygen, hypertension, and chronic pain How is presenting disease/condition affected by chronic disease/condition?: exacerbated by Evaluation data The following diagnostics were reviewed and interpreted by me:: lab results and radiology exam(s) Lab and/or radiology exams considered but not ordered:: None Interpretation Summary: Ordering Physician: Bk Meehan MD Date of Service: 09/07/24 Procedure(s): XR chest 1V portable Accession Number(s): [id number] cc: Bk Meehan MD; Jose C Torre MD~ Examination: AP chest single view Technique one AP portable semiupright chest single view Date and time: 2024, 1407 hrs. Comparison August 06, 2024 Indications: Difficulty breathing today. Findings: Significant pneumonia right base. Mild enlargement cardiac contour. No pulmonary edema. Impression: Pneumonia right base. Dictated By: Jose C Torre MD Signed By: <Electronically signed by Jose C Torre MD in OV> 09/07/24 1423 Medications / Prescriptions Medications or Prescriptions considered but not ordered:: None Medication administrations:: Medication Administration History Piperacillin/Tazobactam/Dextrose (Zosyn) 3.375 gm in 50 mls @ 12.5 mls/hr IV Q8HR GHADA Stop: 09/14/24 21:59 Lactated Ringer's (Lactated Ringers) 1,000 mls @ 125 mls/hr IV .Q8H GHADA Stop: 10/07/24 13:58 Last Admin: 09/07/24 15:52 Dose: 125 mls/hr Documented By: KHRIS Discontinued Medications Albuterol/Ipratropium (Albuterol/Ipratropium (Duoneb) Rt Lauren 3 Ml Nebu) 3 ml INH X1 ONE Stop: 09/07/24 13:59 Last Admin: 09/07/24 14:27 Dose: 3 ml Documented By: RANDA Hydrocortisone Sodium Succinate (Hydrocortisone Sod Succ Inj 100 Mg Vial) 100 mg IV X1 ONE Stop: 09/07/24 13:59 Last Admin: 09/07/24 15:48 Dose: 100 mg Documented By: KHRIS Vancomycin/Sodium Chloride (Vancomycin/Ns 1 Gm Ivpb) 200 mls @ 120 mls/hr IV X1 ONE Stop: 09/07/24 15:38 Last Admin: 09/07/24 16:32 Dose: 120 mls/hr Documented By: GABI Piperacillin Sod/Tazobactam (Sod 4.5 gm/ Sodium Chloride) 100 mls @ 200 mls/hr IV X1 ONE Stop: 09/07/24 14:44 Last Infusion: 09/07/24 16:32 Dose: Infused Documented By: Admin: 09/07/24 16:03 Dose: 200 mls/hr Documented By: KHRIS See above Consultations Consultation(s) initiated? (list below): No Diagnosis Shortness of Breath Differential Diagnosis: acute exacerbation of chronic obstructive airways disease, congestive heart failure, community acquired pneumonia and asthma with exacerbation Most likely diagnosis given after review of the tests above:: Right lower lobe pneumonia Hypoxia CHF, not active Chronic atrial fibrillation Admission Indicated Admission indicated?: indicated Admission Request Was there a request for admission?: Yes Admission Attestation Admission request attestation: Discussed case with [] from Hospitalist service regarding admission. Discussed patients ED course, exam findings, labs, and radiology results. The Hospitalist [agrees,declines] to accept the patient for admission. Disposition Plan Disposition Plan: Admit Discharge Plan Plan Patient Disposition: Admit Acute Care w/in Hospital Prescriptions/Referrals Prescriptions/Med Rec: No Action spironolactone 25 mg tablet 25 mg PO QDAY furosemide 40 mg Tablet See Rx Instructions .ROUTE .COMPLEX Rx Instructions: TAKE ONE TABLET BY MOUTH AT ten IN THE MORNING AND TAKE ONE TABLET BY MOUTH AT FOUR IN THE AFTERNOON amiodarone 200 mg Tablet 200 mg PO BID potassium chloride 10 mEq Capsule, Extended Release 10 meq PO BID gabapentin 100 mg capsule 100 mg PO TID duloxetine 60 mg capsule,delayed release(DR/EC) 60 mg PO BID Patient Comments: TAKE ONE CAPSULE BY MOUTH EVERY DAY buspirone 15 mg tablet 15 mg PO TID PRN (Reason: Anxiety) Patient Comments: TAKE ONE TABLET BY MOUTH THREE TIMES DAILY NEEDED FOR ANXIETY Xarelto 20 mg tablet 20 mg PO HS Patient Comments: TAKE ONE TABLET BY MOUTH EVERY EVENING WITH FOOD carvedilol 3.125 mg tablet 3.125 mg PO BIDAC Patient Comments: TAKE ONE TABLET BY MOUTH WITH FOOD TWICE DAILY FOR BLOOD PRESSURE morphine 30 mg tablet extended release 15 mg PO Q12H MDD 90 mg 30 Days Qty: 30 0RF Rx Instructions: 15 mg orally; Referrals: Domenic Mcmahan MD [Primary Care Provider] - In 1 week Problem List Clinical Impression: Right lower lobe pneumonia, Hypoxia, CHF (congestive heart failure), Chronic atrial fibrillation Patient/Caregiver Discharge Instructions Print Language: Urdu Stand Alone Forms: Deborah Award Info., Patient Portal Info Letter
--- NOTE | 2024-09-07 13:58 | XR_ITS ---
Examination: AP chest single view Technique one AP portable semiupright chest single view Date and time: 2024, 1407 hrs. Comparison August 06, 2024 Indications: Difficulty breathing today. Findings: Significant pneumonia right base. Mild enlargement cardiac contour. No pulmonary edema. Impression: Pneumonia right base.
[2024-09-07] MEDS: ALBUTEROL/IPRATROPIUM (Duoneb) RT SOL 3 ML NEBU INH (14:27)
[2024-09-07 14:41] LABS: Base Excess 6 (-3-3); HCO3 31 mEq/L (20-26); Inspired O2, VO2 Liters 15 L/min; Inspired Oxygen, FIO2 21 %; O2 Saturation 93 % (91-98); PCO2 46 mmHg (32.0-48.0); PO2 65 mmHg (83-108); pH, Arterial 7.44 (7.35-7.45)
[2024-09-07 14:42] LABS: Allen Test Performed/OK; Puncture Site Right Radial
[2024-09-07 14:56] LABS: Lactate (Lactic Acid) 3.0 mMol/L (0.4-2.0)
[2024-09-07] MEDS: HYDROCORTISONE SOD SUCC INJ 100 MG VIAL IV (15:48)
[2024-09-07] MEDS: RINGERS LACTATED 1000 ML 1,000 ML 125 ML IV ×2 (15:52→22:13)
[2024-09-07] MEDS: PIPER/TAZO INJ 4.5 GM in SODIUM CHLORIDE 0.9% (POP) 100 ML IV (16:03)
[2024-09-07 16:09] LABS: Basophils # (Auto) 0.1 Thou/mm3 (0.0-0.2); Basophils % (Auto) 0 % (0-2.5); Eosinophils # (Auto) 0.3 Thou/mm3 (0.0-0.5); Eosinophils % (Auto) 1 % (0-10); Hematocrit 37.6 % (36.0-46.0); Hemoglobin 12.3 g/dL (12.0-16.0); Immature Granulocytes Auto 0.14 Thou/mm3 (0.00-0.00); Lymphocytes # (Auto) 1.1 Thou/mm3 (1.0-4.8); Lymphocytes % (Auto) 4 % (10-50); Mean Corpuscular HGB Conc 32.7 g/dl (31.0-37.0); Mean Corpuscular Hemoglobin 31.2 pg (25.0-35.0); Mean Corpuscular Volume 95 fL (80-100); Monocytes # (Auto) 3.4 Thou/mm3 (0.0-0.8); Monocytes % (Auto) 13 % (0-12); Neutrophils # (Auto) 22.0 Thou/mm3 (1.8-7.7); Neutrophils % (Auto) 82 % (37-80); Nucleated Red Blood Cell # 0.00 Thou/mm3 (0.00-0.00); Nucleated Red Blood Cell % 0 /100 WBC (0); Platelet Count 493 Thou/mm3 (140-440); RDW Standard Deviation 72.1 fL (36.4-46.3); Red Blood Count 3.94 Miln/mm3 (4.00-5.20); White Blood Count 27.0 Thou/mm3 (3.6-11.0)
[2024-09-07] MEDS: VANCOMYCIN/NS 1 GM IVPB 200 ML IV (16:32)
[2024-09-07 16:39] LABS: Alanine Aminotransferase 66 U/L (10-49); Albumin, Serum 2.6 gm/dL (3.4-4.8); Albumin/Globulin Ratio 0.6 (1.2-2.2); Alkaline Phosphatase 274 U/L (46-116); Anion Gap 4 (7-16); Aspartate Amino Transferase 136 U/L (0-34); BUN/Creatinine Ratio 31 Ratio (12-20); Bilirubin,Total 1.6 mg/dL (0.3-1.2); Blood Urea Nitrogen 31 mg/dL (9-23); Calcium 8.5 mg/dL (8.3-10.6); Calcium (Corrected) 9.6 mg/dL (8.5-10.1); Carbon Dioxide 30.1 mMol/L (20.0-31.0); Chloride 101 mMol/L (98-107); Creatine Kinase 29 U/L (34-171); Creatinine (Component) 1.0 mg/dL (0.6-1.3); Estimated Creatinine Clearance 54.7 mL/min (>60); Globulin 4.3 gm/dL (2.3-3.5); Glucose 93 mg/dL (74-106); Osmolality,Calculated 276 (275-295); Potassium 4.7 mMol/L (3.4-5.1); Procalcitonin 0.80 ng/ml (0.0-0.49); Sodium 135 mMol/L (136-145); Total Protein 6.9 gm/dL (5.7-8.2); Troponin I < 0.020 ng/mL (0.0-0.045); eGFR 58 See Note
[2024-09-07 17:54] LABS: Reflex Lactate? Y
[2024-09-07 18:22] LABS: Lactic Acid, 3 HR 2.2 mMol/L (0.4-2.0)
[2024-09-07 18:56] LABS: COVID-19 Antigen (In-House) Negative (Negative)
[2024-09-07] MEDS: SODIUM CHLORIDE 0.9% 500 ML 300 ML 999 ML IV (18:58)
[2024-09-07] MEDS: AMIODARONE 150 MG IVPB 150 MG/100 ML BAG 600 MG IV (19:02)
--- NOTE | 2024-09-07 19:07 | PD.RESHP ---
Documentation for date of: 09/07/24 HPI History of Present Illness History of present illness: Nneka Burciaga is a 74-year-old female with a history of enlarged CBD s/p ERCP on 07/2024, COPD on 2 L home O2, HFpEF (60% on 07/2024), a-fib on Xarelto, hypertension, and chronic pain on home morphine who presents from [facility] for encephalopathy in setting of desaturation and possible aspiration event. Spoke to son at bedside who helped provide additional history. He states that yesterday patient was in her usual state of health and that after visiting her at lunchtime today, she was unable to eat her food and states that she was spitting/throwing it up and had an episode of hypoxia and altered mentation/encephalopathy. EMS was called and she was brought to the ED and upon arrival was placed on 15 L OxyMask saturating 90%. She was found to have pneumonia on the right base on CXR. Labs showed leukocytosis of 27, however patient was also noted to have leukocytosis upon discharge on 08/15 and no recorded fevers since arrival. Also noted to have lactate of 3.0 that improved with IVF. CHEM panel showed T. bili 1.6, AST 136, ALT 66, ALP 274 which are all relatively similar to labs upon discharge on 08/15. She has not been able to follow-up with Dr. Carrillo outpatient as of yet. PMHx: COPD, HFpEF, a-fib, hypertension, enlarged CBD, chronic pain Medications: gabapentin, coreg, amiodarone, morphine sulfate, duloxetine, xarelto, lasix, spironolactone, dulcolax, milk of magnesia SHx: smoked < 10 cigarettes/day (previously 2 packs/day) for 50 years, no alcohol consumption, no illicit drug use PSHx: cholecystectomy, tympanic membrane ear surgery, and right leg cyst I&D Review of Systems Review of Systems Systems Reviewed: All systems reviewed, normal except as documented Exam Vital Signs Pulse Resp BP Pulse Ox O2 Flow Rate 110 H 20 111/68 93 L 15 09/07/24 19:02 09/07/24 16:30 09/07/24 19:02 09/07/24 16:30 09/07/24 14:28 Narrative Exam General: AOx3, mild distress, able to speak 3-4 word sentences, appears frail and weak HEENT: NC/AT, mucous membranes moist, bilateral sclera anicteric Cardiovascular: tachycardic, irregular, S1/S2 present, no murmurs appreciated Pulmonary: breathing comfortably on 15 L oxymask, clear to auscultation bilaterally, no rales/rhonchi/wheezes Abdominal: obese, soft, non-tender, non-distended, no rebound/guarding, normal bowel sounds present Musculoskeletal: normal ROM, no peripheral edema Skin: chronic venous stasis changes, warm and dry, intact, no rashes Neuro: CN II-XII intact, no focal deficits Results: Labs 09/08/24 05:48 09/08/24 05:48 Labs: Short CBC 09/07/24 Range/Units 16:00 WBC 27.0 H (3.6-11.0) Thou/mm3 Hgb 12.3 (12.0-16.0) g/dL Hct 37.6 (36.0-46.0) % Plt Count 493 H D (140-440) Thou/mm3 BMP 09/07/24 16:00 Sodium 135 L Potassium 4.7 Chloride 101 Carbon Dioxide 30.1 BUN 31 H Creatinine 1.0 Glucose 93 Calcium 8.5 Cardiac Enzymes 09/07/24 Range/Units 16:00 Total Creatine Kinase 29 L D (34-171) U/L Troponin I < 0.020 (0.0-0.045) ng/mL Liver Function 09/07/24 Range/Units 16:00 Total Bilirubin 1.6 H (0.3-1.2) mg/dL AST 136 H (0-34) U/L ALT 66 H (10-49) U/L Alkaline Phosphatase 274 H (46-116) U/L Albumin 2.6 L (3.4-4.8) gm/dL ABG Interpretation ABG results: 09/07/24 14:37 ABG pH 7.44 ABG pCO2 46 ABG pO2 65 L ABG HCO3 31 H ABG O2 Saturation 93 ABG Base Excess 6 H Quality Measures Quality Measures none Advance care planning discussed with:: patient and child Medications Home Medications and Allergies Home Medications ?Medication ?Instructions ?Recorded ?Confirmed ?Type potassium chloride 10 mEq 10 meq PO BID 09/08/17 09/07/24 History capsule,extended release spironolactone 25 mg tablet 25 mg PO QDAY 12/22/20 09/07/24 History furosemide 40 mg tablet See Rx Instructions .Route .COMPLEX 01/26/21 09/07/24 History Held on 08/15/24. Instructions: Resume on 08/29/24. amiodarone 200 mg tablet 200 mg PO BID 07/15/21 09/07/24 History duloxetine 60 mg capsule,delayed 60 mg PO BID 02/28/22 09/07/24 History release gabapentin 100 mg capsule 100 mg PO TID 02/28/22 09/07/24 History buspirone 15 mg tablet 15 mg PO TID PRN Anxiety 11/15/23 09/07/24 History rivaroxaban 20 mg tablet (Xarelto) 20 mg PO HS 11/15/23 09/07/24 History carvedilol 3.125 mg tablet 3.125 mg PO BIDAC 07/24/24 09/07/24 History Allergies Allergy/AdvReac Type Severity Reaction Status Date / Time doxycycline Allergy Verified 07/23/24 00:53 Visit Medications Acetaminophen (Acetaminophen 325 Mg Tablet) 650 mg PO Q6H PRN PRN Reason: PAIN OR FEVER > 100.4 Stop: 10/07/24 18:36 Lactated Ringer's (Lactated Ringers) 1,000 mls @ 125 mls/hr IV .Q8H GHADA Stop: 10/07/24 13:58 Last Admin: 09/07/24 15:52 Dose: 125 mls/hr Amiodarone HCl/Dextrose (Nexterone Ivpb) 360 mg in 200 mls @ 33.333 mls/hr IV .Q6H ONE Stop: 09/08/24 00:41 Amiodarone HCl/Dextrose (Nexterone Ivpb) 360 mg in 200 mls @ 16.667 mls/hr IV .Q12H GHADA Stop: 09/08/24 18:42 Ceftriaxone Sodium/Dextrose (Rocephin/D5w 1gm Iv Premix) 1 gm in 50 mls @ 100 mls/hr IV Q12HR GHADA Stop: 09/14/24 18:42 Doxycycline Hyclate 100 mg/ (Sodium Chloride) 100 mls @ 100 mls/hr IV BID GHADA Stop: 09/15/24 08:59 Doxycycline Hyclate 100 mg/ (Sodium Chloride) 100 mls @ 100 mls/hr IV X1 ONE Stop: 09/07/24 19:59 Metoclopramide HCl (Metoclopramide Inj 5 Mg/Ml Vial 2 Ml) 10 mg IVP Q6H PRN; Protocol PRN Reason: NAUSEA OR VOMITING Stop: 10/07/24 18:36 Pantoprazole Sodium (Pantoprazole Inj 40 Mg Vial) 40 mg IVP QDAY GHADA Stop: 10/08/24 08:59 Discontinued Medications Albuterol/Ipratropium (Albuterol/Ipratropium (Duoneb) Rt Lauren 3 Ml Nebu) 3 ml INH X1 ONE Stop: 09/07/24 13:59 Last Admin: 09/07/24 14:27 Dose: 3 ml Hydrocortisone Sodium Succinate (Hydrocortisone Sod Succ Inj 100 Mg Vial) 100 mg IV X1 ONE Stop: 09/07/24 13:59 Last Admin: 09/07/24 15:48 Dose: 100 mg Piperacillin/Tazobactam/Dextrose (Zosyn) 3.375 gm in 50 mls @ 12.5 mls/hr IV Q8HR [facility] Stop: 09/14/24 21:59 Vancomycin/Sodium Chloride (Vancomycin/Ns 1 Gm Ivpb) 200 mls @ 120 mls/hr IV X1 ONE Stop: 09/07/24 15:38 Last Infusion: 09/07/24 18:25 Dose: Infused Piperacillin Sod/Tazobactam (Sod 4.5 gm/ Sodium Chloride) 100 mls @ 200 mls/hr IV X1 ONE Stop: 09/07/24 14:44 Last Infusion: 09/07/24 16:32 Dose: Infused Sodium Chloride (Ns) 300 mls @ 999 mls/hr IV .Q19M ONE Stop: 09/07/24 18:55 Last Admin: 09/07/24 18:58 Dose: 999 mls/hr Amiodarone HCl/Dextrose (Nexterone Ivpb) 150 mg in 100 mls @ 600 mls/hr IV .Q10M ONE Stop: 09/07/24 18:51 Last Admin: 09/07/24 19:02 Dose: 600 mls/hr Sodium Chloride (Sodium Chloride Rt 10% 15 Ml Nebu) 5 ml INH X1 ONE Stop: 09/07/24 18:44 Assessment & Plan Plan Nneka Burciaga is a 74-year-old female with a history of enlarged CBD s/p ERCP on 07/2024, COPD on 2 L home O2, HFpEF (60% on 07/2024), a-fib on Xarelto, hypertension, and chronic pain on home morphine who is admitted for AHRF secondary to pneumonia secondary to possible aspiration event. #Acute on chronic hypoxic respiratory failure possibly secondary to possible aspiration event #Right lower lobe pneumonia #Lactic acidosis, improving Patient was in normal state of health prior to admission and per son she had an episode of emesis when eating. Given acuity of patient's presentation and CXR findings, etiology may be due to aspiration. However, at bedside in ED vital monitor showed what appeared to be VT/VF and thus will refrain from QTc prolonging agents (i.e. doxycycline, metronidazole). In ED, she was saturating in mid-90s on 15 L oxymask. At baseline, she utilizes 2 L oxygen mostly when sleeping and longstanding history of smoking and likely has COPD for which can keep O2 titrated between 88-92%. ? Ceftriaxone and doxycycline (09/07-) ? Follow-up blood cultures and sputum cultures ? Supplemental oxygen as needed ? Keep oxygen titrated between 88 and 92% #Atrial fibrillation on Xarelto #? Ventricular arrhythmia In ED, vital monitor showed what appeared to be 5 to 10-second run of ventricular arrhythmia. Has history of atrial fibrillation on Xarelto, amiodarone, and Coreg and in ED HR noted to be in low 110s. BP in ED showed MAP of 67, on exam did not appear fluid overloaded and CXR without signs of vascular congestion so will give small bolus of IVF. ? Cardiology following, appreciate recommendations ? Amiodarone drip ? Xarelto 20 mg p.o. at bedtime ? Will hold Coreg given that MAP was 67 in ED ? 300 cc bolus of NS #HFpEF (60% on 07/2024) Follows Dr. Browning outpatient. Does not appear to be fluid overload on exam, no vascular congestion on CXR, and CBC shows what appears to be hemoconcentration given elevated WBC, hemoglobin, and platelets though may be reactive thrombocytosis. Additionally, presents with SAPPHIRE given previous creatinine of 0.7 and now presents with creatinine of 1.0 with BUN/creatinine ratio > 20. Thus, patient likely overall dehydrated and will hold diuretics at this time. ? Cardiology following as above ? 300 cc NS bolus, can give additional IVF if indicated ? Hold diuretics, can resume as needed ? Continue Coreg, spironolactone if BP permits ? 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 After procedure, she continued to have elevated T. bili and transaminitis and again presents with relatively similar values. ? Follow-up GI outpatient ? Will need repeat ERCP with spyglass to examine CBD with possible biopsy #Chronic pain ? Gabapentin 100 mg p.o. three times daily ? Morphine ER 15 mg twice per day ? Follow-up med rec #COPD on 2 L home O2 Does not have any inhalers at home per son. ? Duonebs as needed Hospital management: Disposition: IV antibiotics, pending cultures, cardiology following Fluids: 300 cc IVF bolus Diet: low sodium diet Lines: PIV DVT prophylaxis: SCDs, xarelto GI prophylaxis: pantoprazole CODE STATUS: DNR/DNI ----- Plan discussed with attending physician Dr. Gatito Smith MD PGY-1 Internal Medicine Attending Provider Attestation/Addendum I have examined the patient, reviewed labs and imaging findings, discussed the case with the resident(s), and reviewed entered orders. I agree with the plan of care as outlined in this note, with these additional summaries/recommendations: After examination of the patient and review of the clinical data, I feel that this patient needs admission to the hospital for further treatment and evaluation. Dr. Gatito MD
[2024-09-07] MEDS: AMIODARONE 360 MG IVPB 360 MG/200 ML BAG 33.333 MG IV (19:19)
[2024-09-07] MEDS: cefTRIAXone/D5w 1gm IV premix 1 GM/50 ML BAG IV (19:43)
[2024-09-07] MEDS: DOXYCYCLINE INJ 100 MG in SODIUM CHLORIDE 0.9% (POP) 100 ML IV (20:11)
[2024-09-07] MEDS: SODIUM CHLORIDE RT 10% 15 ML NEBU 5 ML INH (20:57)
--- NOTE | 2024-09-07 21:00 | PD.IMCONS ---
HPI Data of Consult Consult date: 09/07/24 Requesting Physician: Nirav Mederos MD Primary Care Provider: Domenic Mcmahan MD Consult Narrative Reason for consult: Wide-complex tachycardia History of present illness: 74-year-old female with a past medical history of HFpEF with an EF of 60 to 65%, paroxysmal atrial fibrillation on anticoagulation, essential hypertension, recent admission with enlarged CBD status post ERCP in July 2024, obesity, hypothyroidism presented to the emergency department for further evaluation of hypoxia with questionable aspiration PNA. Patient apparently was in a state of health until her leg stand today and the patient was not eating well and the patient was also noticed to be throwing up and spitting and was noted to have an episode of hypoxia with altered mental status and hence was sent to the emergency department for further evaluation in the emergency department patient was found to be hypoxic and was started on 15 L oxygen mask. Chest x-ray did show pneumonia of the right base and patient admitted for further evaluation. Cardiology was consulted for questionable wide-complex tachycardia that was self-limited. Otherwise patient heart rate was 110-120 bpm. Initial vitals in the emergency department showed saturation of only 90% and patient was placed on oxygen via nonrebreather. Patient was also noted to have tachycardia with possible atrial fibrillation with RVR rate of 110 bpm but there was a question of 10 beats NSVT. Unfortunately rhythm strips not available at the present point of time. Labs did show hemoglobin of 12.3 while her baseline is around 9-10, WBCs 27 and her WBC has been fluctuating somewhere between 15-20 K. Platelets also 493 slightly elevated than before. BUN is 31 and at baseline BUN is around 12. Creatinine is 1.0 and previous was 0.7. Troponin was -0.02. Labs showed elevated bilirubin at 1.6, AST of 136, ALT of 66, alk phos of 274 and albumin was low as 2.6. VBG showed pH of 7.44, [id number], PO2 of 65, bicarb of 31 and O2 saturation 93%. Chest x-ray did show significant right lower lobe consolidation with no evidence of any vascular congestion. BNP was not done and recommended to order a BNP. cc:: cc: Nirav Mederos MD Review of Systems Review of Systems Systems Reviewed: All systems reviewed, normal except as documented Past Medical History Past Medical History CARDIAC: Positive Cardiac Disorders, Atrial Fibrillation, Hypercholesterolemia, Congestive Heart Failure, Edema, Hypertension and Varicose Veins RESPIRATORY: Positive Chronic Obstructive Pulmonary Disease (COPD) and Asthma (COPD) GASTROINTESTINAL: Positive Gastrointestinal Disorders, Gall Bladder Disease and Obesity REPRODUCTIVE: Positive Previous Pregnancies MUSCULOSKELETAL: Positive Musculoskeletal Disorders, Arthritis and Degenerative Disk Disease PSYCHO/SOCIAL: Positive Anxiety OTHER HISTORY: Positive Falls and Measles Family History FAMILY HISTORY: Positive Family Cardiac Disorders and Family Cancer Surgical History SURGICAL: Positive Ear Surgery and Abdominal Surgery Social History SMOKING STATUS: Never smoker SECOND HAND EXPOSURE: No SUBSTANCE USE: does not use Meds Home Medications and Allergies Home Medications ?Medication ?Instructions ?Recorded ?Confirmed ?Type potassium chloride 10 mEq 10 meq PO BID 09/08/17 09/07/24 History capsule,extended release spironolactone 25 mg tablet 25 mg PO QDAY 12/22/20 09/07/24 History furosemide 40 mg tablet See Rx Instructions .Route .COMPLEX 01/26/21 09/07/24 History Held on 08/15/24. Instructions: Resume on 08/29/24. amiodarone 200 mg tablet 200 mg PO BID 07/15/21 09/07/24 History duloxetine 60 mg capsule,delayed 60 mg PO BID 02/28/22 09/07/24 History release gabapentin 100 mg capsule 100 mg PO TID 02/28/22 09/07/24 History buspirone 15 mg tablet 15 mg PO TID PRN Anxiety 11/15/23 09/07/24 History rivaroxaban 20 mg tablet (Xarelto) 20 mg PO HS 11/15/23 09/07/24 History carvedilol 3.125 mg tablet 3.125 mg PO BIDAC 07/24/24 09/07/24 History Allergies Allergy/AdvReac Type Severity Reaction Status Date / Time doxycycline Allergy Verified 07/23/24 00:53 Exam Vital Signs Temp Pulse Resp BP Pulse Ox O2 Del Method O2 Flow Rate 98.0 F 97 21 H 106/50 L 97 Oxy Mask 10 09/07/24 23:37 09/07/24 23:37 09/07/24 23:37 09/07/24 23:37 09/07/24 23:37 09/07/24 23:37 09/07/24 23:37 Narrative Exam General: Alert and oriented x3. In no acute distress. Eyes: Pupils are equal and reactive to light bilaterally. HEENT: Atraumatic, normocephalic. No JVD noted. Mucosa moist. Cardiovascular: Normal S1 and S2. Irregularly irregular, tachycardic, 2/6 systolic murmur at the apex. No peripheral pitting edema noted. Respiratory: No respiratory distress. Lungs are clear to auscultation bilaterally. No wheezing or crackles heard. Abdomen: Soft, nontender, nondistended. Skin: No rash. Warm to touch. Musculoskeletal: No gross injuries. Able to move all 4 extremities. Neuro: Alert and oriented x3. No focal neuro deficits. Psych: Normal affect and mood Results Labs 09/08/24 05:48 09/08/24 05:48 Labs: Short CBC 09/07/24 Range/Units 16:00 WBC 27.0 H (3.6-11.0) Thou/mm3 Hgb 12.3 (12.0-16.0) g/dL Hct 37.6 (36.0-46.0) % Plt Count 493 H D (140-440) Thou/mm3 BMP 09/07/24 16:00 Sodium 135 L Potassium 4.7 Chloride 101 Carbon Dioxide 30.1 BUN 31 H Creatinine 1.0 Glucose 93 Calcium 8.5 Cardiac Enzymes 09/07/24 Range/Units 16:00 Total Creatine Kinase 29 L D (34-171) U/L Troponin I < 0.020 (0.0-0.045) ng/mL Liver Function 09/07/24 Range/Units 16:00 Total Bilirubin 1.6 H (0.3-1.2) mg/dL AST 136 H (0-34) U/L ALT 66 H (10-49) U/L Alkaline Phosphatase 274 H (46-116) U/L Albumin 2.6 L (3.4-4.8) gm/dL ABG Interpretation ABG results: 09/07/24 14:37 ABG pH 7.44 ABG pCO2 46 ABG pO2 65 L ABG HCO3 31 H ABG O2 Saturation 93 ABG Base Excess 6 H Assessment and Plan Additional Assessment & Plan Additional Plan: 74-year-old female with a past medical history of HFpEF with an EF of 60 to 65%, paroxysmal atrial fibrillation on anticoagulation, essential hypertension, recent admission with enlarged CBD status post ERCP in July 2024, obesity, hypothyroidism presented to the emergency department for further evaluation of hypoxia with questionable aspiration PNA. 1. Acute hypoxic respiratory failure 2. Atrial fibrillation with RVR 3. Wide-complex [id number] 4. Aspiration pneumonia 5. HFpEF with an EF of 60 to 65% 6. Agitation per potential 7. Recent admission with a large CBD status post ERCP in 2024 8. Obesity Patient overall clinical presentation suspicious for possible aspiration pneumonia given the chest x-ray finding and the history. Patient also has elevated procalcitonin at 0.8. And mild lactic acidosis. Primary team did start the patient on antibiotics. Overall clinical picture suggest that patient is severely dehydrated. With elevation of BUN to 30 from baseline of 12 and creatinine to 1.0 from 0.7. Also hemoglobin is increased to 12.5 indicating hemoconcentration as her baseline is around 9-10. Recommend bolus IV fluids as well as maintenance fluids for now. Lasix on hold. Regarding the episode of tachycardia at 110 bpm unlikely VT but could be NSVT. Reviewed the previous EKGs and patient probably has rate related incomplete bundle branch block which could also be the differential. Patient also has history of atrial fibrillation with RVR. She is on amiodarone 200 mg twice daily along with Coreg 3.125 mg twice daily. No Coreg due to the hypotension and start amiodarone 200 mg twice daily which she is at home dosage. Started already on amiodarone bolus as well as drip and recommend to continue it for 1 day. Atrial fibrillation with RVR episode mostly secondary to the acute kidney injury and severe dehydration in the setting of possible aspiration pneumonia and poor oral intake. Recent echo from July 2024 reviewed which showed normal-sized left ventricle with normal left wall thickness wall motion ejection fraction of approximately 60%. Mildly dilated left atrium. RV size is mildy increased with normal systolic function. The estimated RVSP, 46 mmHg. Mitral valve thickening mild mitral regurgitation. Mild tricuspid regurgitation. Patient does not appear to be in heart failure. Strict input output, daily weights and 2 g sodium diet. No repeat echo needed. \4\\. Management of rest of the medical conditions as per primary team and other consultants. Thank you for the consult and allowing me to participate in the care of the patient. Cardiology will continue to follow. Tico Doll M.D. Interventional Cardiology
--- NOTE | 2024-09-07 21:14 | PC.RT ---
sputum culture attempted, unable to collect
[2024-09-07 21:37] LABS: B-Type Natriuretic Peptide 166 pg/mL (0-100)
[2024-09-07] MEDS: Morphine Sulf 15 MG TABCR PO (22:12)
[2024-09-07] MEDS: GABAPENTIN 100 MG CAPSULE PO (22:12)
[2024-09-08] VITALS (12 sets, daily range): BP systolic 92–120; BP diastolic 50–70; PULSE 88–103; RESP 16–26; TEMP 36.1–36.7; O2SAT 94–97; BMI 34.0
[2024-09-08] MEDS: AMIODARONE 360 MG IVPB 360 MG/200 ML BAG 16.667 MG IV ×2 (00:52→13:54)
--- NOTE | 2024-09-08 03:20 | PD.IMPROG ---
Documentation for date of: 09/08/24 Subjective Subjective Interval history: Seen and examined at bedside. No new cardiac complaints. Reviewed the telemetry. Patient does not have any kind of VT episodes or NSVT. She did have atrial fibrillation with RVR with rate related bundle branch block or evidence of conduction delay. Amiodarone drip will complete today and recommend to continue oral amiodarone 200 mg twice daily. If no further procedures are planned, would recommend to restart anticoagulation. Would prefer Eliquis or Xarelto but can continue Xarelto for now. Keep edition greater than 4 minutes greater than 2.0. Patient started on antibiotics for the aspiration pneumonia. Renal function has only improved a little with a BUN of 29 from 31 and a creatinine a is 0.9 from previous level of 1.0. Recommend to start the patient on IV fluids normal saline for now as patient is dehydrated with acute kidney injury. Liver function tests are also slowly improving. Exam Vital Signs Temp Pulse Resp BP Pulse Ox O2 Del Method O2 Flow Rate 97.3 F 98 18 101/63 96 Nasal Cannula 4 09/09/24 00:00 09/09/24 00:00 09/09/24 00:00 09/09/24 00:00 09/09/24 00:00 09/09/24 00:00 09/09/24 00:00 Narrative Exam General: Alert and oriented x3. In no acute distress. Eyes: Pupils are equal and reactive to light bilaterally. HEENT: Atraumatic, normocephalic. No JVD noted. Mucosa moist. Cardiovascular: Normal S1 and S2. Irregularly irregular, tachycardic, 2 out of 6 systolic murmur at the apex, no peripheral pitting edema noted. Respiratory: No respiratory distress. Lungs are clear to auscultation bilaterally. No wheezing or crackles heard. Abdomen: Soft, nontender, nondistended. Skin: No rash. Warm to touch. Musculoskeletal: No gross injuries. Able to move all 4 extremities. Neuro: Alert and oriented x3. No focal neuro deficits. Psych: Normal affect and mood Objective Labs 09/08/24 05:48 09/08/24 05:48 Labs: Laboratory Results - last 24 hr 09/08/24 05:48 WBC 26.8 H RBC 3.53 L Hgb 11.0 L Hct 32.8 L MCV 93 MCH 31.2 MCHC 33.5 RDW Std Deviation 69.8 H Plt Count 418 D Neut % (Auto) 84 H Lymph % (Auto) 4 L [place] % (Auto) 11 Eos % (Auto) 0 Baso % (Auto) 0 Neut # (Auto) 22.6 H Lymph # (Auto) 1.2 [place] # (Auto) 2.8 H Eos # (Auto) 0.0 Baso # (Auto) 0.1 Immature Gran # (Auto) 0.13 H Absolute Nucleated RBC 0.00 Immature Gran % 1 H Nucleated RBC % 0 Sodium 134 L Potassium 4.0 D Chloride 100 Carbon Dioxide 27.3 Anion Gap 7 BUN 29 H Creatinine 0.9 Estim Creat Clear Calc 57.8 L eGFR > 60 BUN/Creatinine Ratio 32 H Glucose 101 Calculated Osmolality 274 L Calcium 8.3 Corrected Calcium 9.6 Phosphorus 3.5 Magnesium 2.1 Total Bilirubin 1.0 D AST 116 H ALT 61 H Alkaline Phosphatase 261 H Total Protein 6.3 Albumin 2.4 L Globulin 3.9 H Albumin/Globulin Ratio 0.6 L TSH 0.76 ABG Interpretation ABG results: 09/07/24 14:37 ABG pH 7.44 ABG pCO2 46 ABG pO2 65 L ABG HCO3 31 H ABG O2 Saturation 93 ABG Base Excess 6 H Assessment & Plan A&P Narrative 74-year-old female with a past medical history of HFpEF with an EF of 60 to 65%, paroxysmal atrial fibrillation on anticoagulation, essential hypertension, recent admission with enlarged CBD status post ERCP in July 2024, obesity, hypothyroidism presented to the emergency department for further evaluation of hypoxia with questionable aspiration PNA. 1. Acute hypoxic respiratory failure 2. Atrial fibrillation with RVR 3. Wide-complex rgeknomjeeh-ryhj-[id number] 4. Aspiration pneumonia 5. HFpEF with an EF of 60 to 65% 6. Agitation per potential 7. Recent admission with a large CBD status post ERCP in 2024 8. Obesity Patient overall clinical presentation suspicious for possible aspiration pneumonia given the chest x-ray finding and the history. Patient also has elevated procalcitonin at 0.8. And mild lactic acidosis. Primary team did start the patient on antibiotics. Overall clinical picture suggest that patient is severely dehydrated. With elevation of BUN to 30 from baseline of 12 and creatinine to 1.0 from 0.7. Also hemoglobin is increased to 12.5 indicating hemoconcentration as her baseline is around 9-10. Recommend bolus IV fluids as well as maintenance fluids for now. Lasix on hold. Regarding the episode of tachycardia at 110 bpm unlikely VT but could be NSVT. Reviewed the previous EKGs and patient probably has rate related incomplete bundle branch block which could also be the differential. Patient also has history of atrial fibrillation with RVR. She is on amiodarone 200 mg twice daily along with Coreg 3.125 mg twice daily. No Coreg due to the hypotension and start amiodarone 200 mg twice daily which she is at home dosage. Started already on amiodarone bolus as well as drip and recommend to continue it for 1 day. Atrial fibrillation with RVR episode mostly secondary to the acute kidney injury and severe dehydration in the setting of possible aspiration pneumonia and poor oral intake. Recent echo from July 2024 reviewed which showed normal-sized left ventricle with normal left wall thickness wall motion ejection fraction of approximately 60%. Mildly dilated left atrium. RV size is mildy increased with normal systolic function. The estimated RVSP, 46 mmHg. Mitral valve thickening mild mitral regurgitation. Mild tricuspid regurgitation. Patient does not appear to be in heart failure. Strict input output, daily weights and 2 g sodium diet. No repeat echo needed. 09/08/2024: Reviewed the telemetry. Patient does not have any kind of VT episodes or NSVT. She did have atrial fibrillation with RVR with rate related bundle branch block or evidence of conduction delay. Amiodarone drip will complete today and recommend to continue oral amiodarone 200 mg twice daily. If no further procedures are planned, would recommend to restart anticoagulation. Would prefer Eliquis or Xarelto but can continue Xarelto for now. Keep edition greater than 4 minutes greater than 2.0. Patient started on antibiotics for the aspiration pneumonia. Renal function has only improved a little with a BUN of 29 from 31 and a creatinine a is 0.9 from previous level of 1.0. Recommend to start the patient on IV fluids normal saline for now as patient is dehydrated with acute kidney injury. Liver function tests are also slowly improving. Management of rest of the medical conditions as per primary team and other consultants. Thank you for the consult and allowing me to participate in the care of the patient. Cardiology will continue to follow. Tico Doll M.D. Interventional Cardiology Time Spent With Patient Time: Total time spent is greater than 50% in coordination of care (as documented) at patient's floor/unit and/or counseling patient:
[2024-09-08] MEDS: GABAPENTIN 100 MG CAPSULE PO ×3 (05:06→21:02)
[2024-09-08] MEDS: RINGERS LACTATED 1000 ML 1,000 ML 125 ML IV ×2 (05:07→14:01)
[2024-09-08 05:52] LABS: Basophils # (Auto) 0.1 Thou/mm3 (0.0-0.2); Basophils % (Auto) 0 % (0-2.5); Eosinophils # (Auto) 0.0 Thou/mm3 (0.0-0.5); Eosinophils % (Auto) 0 % (0-10); Hematocrit 32.8 % (36.0-46.0); Hemoglobin 11.0 g/dL (12.0-16.0); Immature Granulocytes Auto 0.13 Thou/mm3 (0.00-0.00); Lymphocytes # (Auto) 1.2 Thou/mm3 (1.0-4.8); Lymphocytes % (Auto) 4 % (10-50); Mean Corpuscular HGB Conc 33.5 g/dl (31.0-37.0); Mean Corpuscular Hemoglobin 31.2 pg (25.0-35.0); Mean Corpuscular Volume 93 fL (80-100); Monocytes # (Auto) 2.8 Thou/mm3 (0.0-0.8); Monocytes % (Auto) 11 % (0-12); Neutrophils # (Auto) 22.6 Thou/mm3 (1.8-7.7); Neutrophils % (Auto) 84 % (37-80); Nucleated Red Blood Cell # 0.00 Thou/mm3 (0.00-0.00); Nucleated Red Blood Cell % 0 /100 WBC (0); Platelet Count 418 Thou/mm3 (140-440); RDW Standard Deviation 69.8 fL (36.4-46.3); Red Blood Count 3.53 Miln/mm3 (4.00-5.20); White Blood Count 26.8 Thou/mm3 (3.6-11.0)
[2024-09-08 06:55] LABS: Alanine Aminotransferase 61 U/L (10-49); Albumin, Serum 2.4 gm/dL (3.4-4.8); Albumin/Globulin Ratio 0.6 (1.2-2.2); Alkaline Phosphatase 261 U/L (46-116); Anion Gap 7 (7-16); Aspartate Amino Transferase 116 U/L (0-34); BUN/Creatinine Ratio 32 Ratio (12-20); Bilirubin,Total 1.0 mg/dL (0.3-1.2); Blood Urea Nitrogen 29 mg/dL (9-23); Calcium 8.3 mg/dL (8.3-10.6); Calcium (Corrected) 9.6 mg/dL (8.5-10.1); Carbon Dioxide 27.3 mMol/L (20.0-31.0); Chloride 100 mMol/L (98-107); Creatinine (Component) 0.9 mg/dL (0.6-1.3); Estimated Creatinine Clearance 57.8 mL/min (>60); Globulin 3.9 gm/dL (2.3-3.5); Glucose 101 mg/dL (74-106); Magnesium 2.1 mg/dL (1.6-2.6); Osmolality,Calculated 274 (275-295); Phosphorous 3.5 mg/dL (2.4-5.1); Potassium 4.0 mMol/L (3.4-5.1); Sodium 134 mMol/L (136-145); Thyroid Stimulating Hormone 0.76 uIU/mL (0.55-4.78); Total Protein 6.3 gm/dL (5.7-8.2); eGFR > 60 See Note
[2024-09-08] MEDS: cefTRIAXone/D5w 1gm IV premix 1 GM/50 ML BAG IV ×2 (08:10→21:04)
[2024-09-08] MEDS: DOXYCYCLINE INJ 100 MG in SODIUM CHLORIDE 0.9% (POP) 100 ML IV ×2 (08:45→21:04)
[2024-09-08] MEDS: Morphine Sulf 15 MG TABCR PO ×2 (08:47→21:03)
--- NOTE | 2024-09-08 10:38 | PC.SS ---
Addendum entered by Monse Stark 09/08/24 11:00: ASW contacted the pts son Santana [phone] who reported the pt was not on hospice care prior to entering [facility] but stated the pt was a recipient of [facility], but since she has been at [facility], she is no longer receiving [facility]. It should be known that the pts son will request another SNF placement, as he and the pt are extremely disappointed with [facility]. SS to f/u w/son and pt about their preferences if pt refuses to d/c to [facility]. ASW provided information on other local SNFs and pt and son will relay their interest to SS in the AM. Original Note: Per rounding meeting, it was reported that pt is being treated for PNE and is on IV antibiotics. Pending cultures at this time. Attending wants SS to f/u with pts son about h/o hospice care prior to entering [facility]. ASW attempted to call son Santana Moon [phone], but was only able to leave a voice message requesting a return call. As of this writing, pts son has not returned the call. When information is received, SS to share with the Attending. At this time, there is no d/c date.
--- NOTE | 2024-09-08 11:00 | PD.RESPRO ---
Documentation for date of: 09/08/24 Subjective Subjective Interval history: Patient was seen and examined at bedside. No acute overnight events. Patient was comfortably sitting in bed, son was at bedside. Saturation with patient significantly improved, down to 5 L saturating 98%. Will continue IV antibiotics for now plan is to follow-up with culture results. Cardiology evaluated the patient, recommended to complete amiodarone drip and patient will be transition patient to p.o. amiodarone 200 mg twice daily. Labs were reviewed, CBC without significant changes, stable, CMP revealed mild improvement of kidney function, patient is having adequate urine output. Will continue current management, will follow-up with cardio for further recommendations, follow-up with cultures, patient also was placed on dysphagia 1 diet, however pending official speech swallow evaluation as patient is in the high risk of aspiration and will need nutritional consultation due to failure to thrive. Exam Vital Signs Temp Pulse Resp BP Pulse Ox O2 Del Method O2 Flow Rate 97.6 F 98 22 H 101/57 L 95 Oxy Mask 6 09/08/24 08:00 09/08/24 08:00 09/08/24 08:00 09/08/24 08:00 09/08/24 08:00 09/08/24 08:00 09/08/24 08:00 Narrative Exam General: AOx3, comfortably laying in bed, having breakfast, appears frail and weak HEENT: NC/AT, mucous membranes moist, Cardiovascular;Regular heart rate,, S1/S2 present, no murmurs appreciated Pulmonary: breathing on 5 L nasal cannula saturating 98%, clear to auscultation bilaterally, no rales/rhonchi/wheezes Abdominal: obese, soft, non-tender, non-distended, no rebound/guarding, normal bowel sounds present Musculoskeletal: normal ROM, no peripheral edema Skin: chronic venous stasis changes, warm and dry, intact, no rashes Neuro: CN II-XII intact, no focal deficits Objective Labs 09/09/24 04:36 09/09/24 04:36 Labs: Laboratory Results - last 24 hr 09/07/24 09/07/24 09/07/24 14:19 14:37 16:00 WBC 27.0 H RBC 3.94 L Hgb 12.3 Hct 37.6 MCV 95 MCH 31.2 MCHC 32.7 RDW Std Deviation 72.1 H Plt Count 493 H D Neut % (Auto) 82 H Lymph % (Auto) 4 L [place] % (Auto) 13 H Eos % (Auto) 1 Baso % (Auto) 0 Neut # (Auto) 22.0 H Lymph # (Auto) 1.1 [place] # (Auto) 3.4 H Eos # (Auto) 0.3 Baso # (Auto) 0.1 Immature Gran # (Auto) 0.14 H Absolute Nucleated RBC 0.00 Immature Gran % 1 H Nucleated RBC % 0 Puncture Site Right Radial ABG pH 7.44 ABG pCO2 46 ABG pO2 65 L ABG HCO3 31 H ABG O2 Saturation 93 ABG Base Excess 6 H Oxygen Liter Flow 15 FiO2 21 Sodium 135 L Potassium 4.7 Chloride 101 Carbon Dioxide 30.1 Anion Gap 4 L BUN 31 H Creatinine 1.0 Estim Creat Clear Calc 54.7 L eGFR 58 L BUN/Creatinine Ratio 31 H Glucose 93 Calculated Osmolality 276 Lactic Acid 3.0 H Calcium 8.5 Corrected Calcium 9.6 Phosphorus Magnesium Total Bilirubin 1.6 H AST 136 H ALT 66 H Alkaline Phosphatase 274 H Total Creatine Kinase 29 L D Troponin I < 0.020 B-Natriuretic Peptide 166 H Total Protein 6.9 Albumin 2.6 L Globulin 4.3 H Albumin/Globulin Ratio 0.6 L Procalcitonin 0.80 H TSH SARS-CoV-2 Ag (Rapid) 09/07/24 09/07/24 09/08/24 18:12 18:15 05:48 WBC 26.8 H RBC 3.53 L Hgb 11.0 L Hct 32.8 L MCV 93 MCH 31.2 MCHC 33.5 RDW Std Deviation 69.8 H Plt Count 418 D Neut % (Auto) 84 H Lymph % (Auto) 4 L [place] % (Auto) 11 Eos % (Auto) 0 Baso % (Auto) 0 Neut # (Auto) 22.6 H Lymph # (Auto) 1.2 [place] # (Auto) 2.8 H Eos # (Auto) 0.0 Baso # (Auto) 0.1 Immature Gran # (Auto) 0.13 H Absolute Nucleated RBC 0.00 Immature Gran % 1 H Nucleated RBC % 0 Puncture Site ABG pH ABG pCO2 ABG pO2 ABG HCO3 ABG O2 Saturation ABG Base Excess Oxygen Liter Flow FiO2 Sodium 134 L Potassium 4.0 D Chloride 100 Carbon Dioxide 27.3 Anion Gap 7 BUN 29 H Creatinine 0.9 Estim Creat Clear Calc 57.8 L eGFR > 60 BUN/Creatinine Ratio 32 H Glucose 101 Calculated Osmolality 274 L Lactic Acid 2.2 H Calcium 8.3 Corrected Calcium 9.6 Phosphorus 3.5 Magnesium 2.1 Total Bilirubin 1.0 D AST 116 H ALT 61 H Alkaline Phosphatase 261 H Total Creatine Kinase Troponin I B-Natriuretic Peptide Total Protein 6.3 Albumin 2.4 L Globulin 3.9 H Albumin/Globulin Ratio 0.6 L Procalcitonin TSH 0.76 SARS-CoV-2 Ag (Rapid) Negative ABG Interpretation ABG results: 09/07/24 14:37 ABG pH 7.44 ABG pCO2 46 ABG pO2 65 L ABG HCO3 31 H ABG O2 Saturation 93 ABG Base Excess 6 H Quality Measures Quality Measures none Advance care planning discussed with:: patient and child Assessment & Plan Assessment Current Active Medications: Generic Name Dose Route Start Last Admin Trade Name Freq PRN Reason Stop Dose Admin Acetaminophen 650 mg 09/07/24 18:37 Acetaminophen 325 Mg Tablet PO 10/07/24 18:36 Q6H PRN PAIN OR FEVER > 100.4 Albuterol/Ipratropium 3 ml 09/07/24 20:00 Albuterol/Ipratropium (Duoneb) Rt Lauren 3 Ml Nebu INH 10/07/24 19:59 Q2HR PRN SHORTNESS OF BREATH OR WHEEZE Amiodarone HCl 200 mg 09/08/24 19:00 Amiodarone Hcl 200 Mg Tablet PO 10/08/24 18:59 BID GHADA Bisacodyl 10 mg 09/07/24 21:29 Bisacodyl 10 Mg Supp CO 10/07/24 21:28 QDAY PRN Constipation Protocol Gabapentin 100 mg 09/07/24 22:00 09/08/24 05:06 Gabapentin 100 Mg Capsule PO 10/07/24 21:59 100 mg TID GHADA Administration Lactated Ringer's 1,000 mls @ 125 mls/hr 09/07/24 13:59 09/08/24 05:07 Lactated Ringers IV 10/07/24 13:58 125 mls/hr .Q8H GHADA Administration Amiodarone HCl/Dextrose 360 mg in 200 mls @ 16.667 mls/hr 09/07/24 18:43 09/08/24 00:52 Nexterone Ivpb IV 09/08/24 18:42 16.667 mls/hr .Q12H GHADA Administration Ceftriaxone Sodium/Dextrose 1 gm in 50 mls @ 100 mls/hr 09/07/24 18:43 09/08/24 08:10 Rocephin/D5w 1gm Iv Premix IV 09/14/24 18:42 100 mls/hr Q12HR GHADA Administration Doxycycline Hyclate 100 mg/ 100 mls @ 100 mls/hr 09/08/24 09:00 09/08/24 08:45 Sodium Chloride IV 09/15/24 08:59 100 mls/hr BID GHADA Administration Magnesium Hydroxide 30 ml 09/07/24 21:29 Milk Of Magnesia Susp 30 Ml Udc PO 10/07/24 21:28 QDAY PRN CONSTIPATION Protocol Metoclopramide HCl 10 mg 09/07/24 18:37 Metoclopramide Inj 5 Mg/Ml Vial 2 Ml IVP 10/07/24 18:36 Q6H PRN NAUSEA OR VOMITING Protocol Morphine Sulfate 15 mg 09/07/24 21:45 09/08/24 08:47 Morphine Sulf 15 Mg Tabcr PO 09/12/24 21:44 15 mg Q12H GHADA Administration Protocol Pantoprazole Sodium 40 mg 09/08/24 09:00 09/08/24 08:10 Pantoprazole Inj 40 Mg Vial IVP 10/08/24 08:59 40 mg QDAY GHADA Administration Rivaroxaban 20 mg 09/08/24 21:00 Rivaroxaban 10 Mg Tablet PO 10/08/24 20:59 HS GHADA Plan Nneka Burciaga is a 74-year-old female with a history of enlarged CBD s/p ERCP on 07/2024, COPD on 2 L home O2, HFpEF (60% on 07/2024), a-fib on Xarelto, hypertension, and chronic pain on home morphine who is admitted for AHRF secondary to pneumonia secondary to possible aspiration event. #Acute on chronic hypoxic respiratory failure secondary to possible aspiration event #Right lower lobe pneumonia #Lactic acidosis, improving Patient was in normal state of health prior to admission and per son she had an episode of emesis when eating. Given acuity of patient's presentation and CXR findings, etiology may be due to aspiration. However, at bedside in ED vital monitor showed what appeared to be VT/VF and thus will refrain from QTc prolonging agents (i.e. doxycycline, metronidazole). In ED, she was saturating in mid-90s on 15 L oxymask. At baseline, she utilizes 2 L oxygen mostly when sleeping and longstanding history of smoking and likely has COPD for which can keep O2 titrated between 88-92%. ? Ceftriaxone and doxycycline (09/07-) ? Follow-up blood cultures and sputum cultures ? Supplemental oxygen as needed ? Keep oxygen titrated between 88 and 92% #Atrial fibrillation on Xarelto #Rate related BBB In ED monitor tech revealed wide QRS complexes, with heart rate above 100 bpm, There was a concern for nonsustained V. tach Cardiology evaluated patient, and stated that most likely patient has a rate related bundle sydney block due to underlying conditions such as infection, dehydration. Although QRS complexes have similar morphology however during V. tach they tend to have a uniform and narrower QRS complexes in comparison to BBB with a typical shape that is often different from baseline. And V. tach typically has a higher heart rate of an above 150 and is sustained or paroxysmal. But our patient baseline rhythm is A-fib, the appearance of bundle branch block on top of that may confuse the diagnosis with V. tach. ?Per cardiology recommendation we will finish amiodarone drip and patient will be transitioned to 200 twice daily amiodarone ? Continue treat underlying cause, ? Continue close monitor hemodynamics ? Xarelto 20 mg p.o. at bedtime ? Will hold Coreg given that MAP was 67 in ED #HFpEF (60% on 07/2024) Follows Dr. Browning outpatient. Does not appear to be fluid overload on exam, no vascular congestion on CXR, and CBC shows what appears to be hemoconcentration given elevated WBC, hemoglobin, and platelets though may be reactive thrombocytosis. Additionally, presents with SAPPHIRE given previous creatinine of 0.7 and now presents with creatinine of 1.0 with BUN/creatinine ratio > 20. Thus, patient likely overall dehydrated and will hold diuretics at this time. 300 cc NS bolus, can give additional IVF if indicated ? Cardiology following as above ? Hold diuretics, can resume as needed ? Continue Coreg, spironolactone if BP permits ? 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 After procedure, she continued to have elevated T. bili and transaminitis and again presents with relatively similar values. ? Follow-up GI outpatient ? Will need repeat ERCP with spyglass to examine CBD with possible biopsy #Chronic pain ? Gabapentin 100 mg p.o. three times daily ? Morphine ER 15 mg twice per day ? Follow-up med rec #COPD on 2 L home O2 Does not have any inhalers at home per son. ? Duonebs as needed Hospital management: Disposition: IV antibiotics, pending cultures, cardiology following Diet: low sodium diet, disphagia 1 diet, pending formal speech/swallow eval Lines: PIV DVT prophylaxis: xarelto GI prophylaxis: pantoprazole CODE STATUS: DNR/DNI Patient care was discussed with attending physician Dr. Gatito Cullen MD PGY-2 Attending Provider Attestation/Addendum I have examined the patient, reviewed labs and imaging findings, discussed the case with the resident(s), and reviewed entered orders. I agree with the plan of care as outlined in this note, with these additional summaries/recommendations: Patient and son seen at bedside. No acute overnight events. Today patient appears much more alert and able to speak in full sentences without difficulty. We will continue supplemental oxygen for acute on chronic hypoxic respiratory failure. On admission patient was requiring 15 L oxy mask and has been weaned down to 5 L. Acute component most likely secondary to community-acquired pneumonia. Chest x-ray showed pneumonia right base. Unclear of aspiration event although patient does endorse difficulty swallowing at times. Continue dysphagia diet and consult speech therapy. Continue IV antibiotics for bacterial pneumonia most likely secondary to gram-negative rods. Blood cultures taken and follow-up results when available. Patient has known chronic atrial fibrillation and developed rapid ventricular response yesterday. Cardiology consulted, recommendations appreciated. Patient started on amiodarone gtt. and will transition to oral amiodarone. Continue home Xarelto. Hold home Coreg for hypotension. Cardiology recommends diuresis once more improved. Continue home gabapentin and oral morphine. Patient has history of biliary stricture with stent placement on last admission. Patient will need to follow-up with GI outpatient for ERCP with spyglass which is not available in our facility. Per patient and son they do not want any further workup or invasive treatments for biliary stricture. Of note patient had advanced directive from SNF signed 08/15/2024 indicating comfort treatments only although this was discussed with patient and son. They would like to continue with treatment although DNR/DNI. Continue breathing treatments for history of COPD. Please see residents note for additional details and management. Dr. Gatito MD
[2024-09-08] MEDS: RIVAROXABAN 10 MG TABLET 20 MG PO (21:02)
[2024-09-08] MEDS: AMIODARONE HCL 200 MG TABLET PO ×2 (21:02→21:04)
[2024-09-09] VITALS (10 sets, daily range): BP systolic 93–135; BP diastolic 60–71; PULSE 83–104; RESP 15–24; TEMP 35.8–36.6; O2SAT 92–98; BMI 34.0; BMI 33.9
[2024-09-09] MEDS: SODIUM CHLORIDE 0.9% 1000 ML 1,000 ML 100 ML IV ×2 (02:09→13:35)
[2024-09-09] MEDS: GABAPENTIN 100 MG CAPSULE PO ×3 (05:15→21:00)
--- NOTE | 2024-09-09 05:25 | PC.NURSE ---
Pt unable to void states she has no urge to go. Bladder scanned 600cc notified orders received to place farah catheter.
[2024-09-09 06:19] LABS: Basophils # (Auto) 0.1 Thou/mm3 (0.0-0.2); Basophils % (Auto) 0 % (0-2.5); Eosinophils # (Auto) 0.3 Thou/mm3 (0.0-0.5); Eosinophils % (Auto) 1 % (0-10); Hematocrit 32.6 % (36.0-46.0); Hemoglobin 10.9 g/dL (12.0-16.0); Immature Granulocytes Auto 0.14 Thou/mm3 (0.00-0.00); Lymphocytes # (Auto) 1.2 Thou/mm3 (1.0-4.8); Lymphocytes % (Auto) 5 % (10-50); Mean Corpuscular HGB Conc 33.4 g/dl (31.0-37.0); Mean Corpuscular Hemoglobin 31.0 pg (25.0-35.0); Mean Corpuscular Volume 93 fL (80-100); Monocytes # (Auto) 2.8 Thou/mm3 (0.0-0.8); Monocytes % (Auto) 12 % (0-12); Neutrophils # (Auto) 18.9 Thou/mm3 (1.8-7.7); Neutrophils % (Auto) 81 % (37-80); Nucleated Red Blood Cell # 0.00 Thou/mm3 (0.00-0.00); Nucleated Red Blood Cell % 0 /100 WBC (0); Platelet Count 397 Thou/mm3 (140-440); RDW Standard Deviation 69.8 fL (36.4-46.3); Red Blood Count 3.52 Miln/mm3 (4.00-5.20); White Blood Count 23.4 Thou/mm3 (3.6-11.0)
[2024-09-09 06:35] LABS: Alanine Aminotransferase 64 U/L (10-49); Albumin, Serum 2.4 gm/dL (3.4-4.8); Albumin/Globulin Ratio 0.7 (1.2-2.2); Alkaline Phosphatase 283 U/L (46-116); Anion Gap 7 (7-16); Aspartate Amino Transferase 130 U/L (0-34); BUN/Creatinine Ratio 39 Ratio (12-20); Bilirubin,Total 1.2 mg/dL (0.3-1.2); Blood Urea Nitrogen 27 mg/dL (9-23); Calcium 8.8 mg/dL (8.3-10.6); Calcium (Corrected) 10.1 mg/dL (8.5-10.1); Carbon Dioxide 27.4 mMol/L (20.0-31.0); Chloride 98 mMol/L (98-107); Creatinine (Component) 0.7 mg/dL (0.6-1.3); Estimated Creatinine Clearance 74.3 mL/min (>60); Globulin 3.4 gm/dL (2.3-3.5); Glucose 71 mg/dL (74-106); Magnesium 2.0 mg/dL (1.6-2.6); Osmolality,Calculated 267 (275-295); Phosphorous 2.7 mg/dL (2.4-5.1); Potassium 3.5 mMol/L (3.4-5.1); Sodium 132 mMol/L (136-145); Total Protein 5.8 gm/dL (5.7-8.2); eGFR > 60 See Note
[2024-09-09] MEDS: cefTRIAXone/D5w 1gm IV premix 1 GM/50 ML BAG IV ×2 (08:02→21:01)
[2024-09-09] MEDS: AMIODARONE HCL 200 MG TABLET PO ×2 (08:02→21:00)
[2024-09-09] MEDS: POTASSIUM CHLORIDE 10% 20 MEQ/15 ML UDC 40 MEQ PO (08:02)
[2024-09-09] MEDS: POTASSIUM CHLORIDE 10% 20 MEQ/15 ML UDC PO (08:02)
[2024-09-09] MEDS: DOXYCYCLINE INJ 100 MG in SODIUM CHLORIDE 0.9% (POP) 100 ML IV ×2 (08:03→21:17)
[2024-09-09] MEDS: Morphine Sulf 15 MG TABCR PO ×2 (10:21→21:00)
--- NOTE | 2024-09-09 12:04 | ESPR_ITS ---
Documentation for date of: 09/09/24 Subjective Subjective Interval history: No acute overnight events. Seen and examined at bedside and appears fatigued at bedside but overall appears at her baseline. She is saturating 98% on 4 L NC and will continue to wean down as tolerated. Other vital signs stable, leukocytosis improving and hemoglobin stable, T bili stable, and LFTs/ALP slight uptrend but known chronic problem s/p ERCP. Will continue to follow-up blood cultures which are negative to date, continue ceftriaxone and doxy and follow-up cultures tomorrow. Will continue PO amiodarone and IVF per cardiolgoy recommendations. Anticipate discharge within next 24-48 hours. Exam Vital Signs Temp Pulse Resp BP Pulse Ox O2 Del Method O2 Flow Rate 96.5 F L 95 23 H 93/68 95 Nasal Cannula 4 09/09/24 08:00 09/09/24 08:02 09/09/24 08:00 09/09/24 08:02 09/09/24 08:00 09/09/24 08:00 09/09/24 08:00 Narrative Exam General: AOx3, comfortably laying in bed, having breakfast, appears frail and weak HEENT: NC/AT, mucous membranes moist, no JVD noted Cardiovascular;Regular heart rate,, S1/S2 present, no murmurs appreciated Pulmonary: breathing comfortably on 4 L NC saturating 98%, expiratory rhonchi in bases Abdominal: obese, soft, non-tender, non-distended, no rebound/guarding, normal bowel sounds present Musculoskeletal: normal ROM, no peripheral edema Skin: chronic venous stasis changes, 1+ pitting edema, warm and dry, intact, no rashes Neuro: CN II-XII intact, no focal deficits Objective Labs 09/09/24 04:36 09/09/24 04:36 Labs: Laboratory Results - last 24 hr 09/09/24 04:36 WBC 23.4 H RBC 3.52 L Hgb 10.9 L Hct 32.6 L MCV 93 MCH 31.0 MCHC 33.4 RDW Std Deviation 69.8 H Plt Count 397 Neut % (Auto) 81 H Lymph % (Auto) 5 L [place] % (Auto) 12 Eos % (Auto) 1 Baso % (Auto) 0 Neut # (Auto) 18.9 H Lymph # (Auto) 1.2 [place]pson # (Auto) 2.8 H Eos # (Auto) 0.3 Baso # (Auto) 0.1 Immature Gran # (Auto) 0.14 H Absolute Nucleated RBC 0.00 Immature Gran % 1 H Nucleated RBC % 0 Sodium 132 L Potassium 3.5 D Chloride 98 Carbon Dioxide 27.4 Anion Gap 7 BUN 27 H Creatinine 0.7 Estim Creat Clear Calc 74.3 eGFR > 60 BUN/Creatinine Ratio 39 H Glucose 71 L Calculated Osmolality 267 L Calcium 8.8 Corrected Calcium 10.1 Phosphorus 2.7 Magnesium 2.0 Total Bilirubin 1.2 AST 130 H ALT 64 H Alkaline Phosphatase 283 H D Total Protein 5.8 Albumin 2.4 L Globulin 3.4 Albumin/Globulin Ratio 0.7 L ABG Interpretation ABG results: 09/07/24 14:37 ABG pH 7.44 ABG pCO2 46 ABG pO2 65 L ABG HCO3 31 H ABG O2 Saturation 93 ABG Base Excess 6 H Quality Measures Quality Measures none Advance care planning discussed with:: patient Assessment & Plan Assessment Current Active Medications: Generic Name Dose Route Start Last Admin Trade Name Freq PRN Reason Stop Dose Admin Acetaminophen 650 mg 09/07/24 18:37 Acetaminophen 325 Mg Tablet PO 10/07/24 18:36 Q6H PRN PAIN OR FEVER > 100.4 Albuterol/Ipratropium 3 ml 09/07/24 20:00 Albuterol/Ipratropium (Duoneb) Rt Lauren 3 Ml Nebu INH 10/07/24 19:59 Q2HR PRN SHORTNESS OF BREATH OR WHEEZE Amiodarone HCl 200 mg 09/08/24 19:00 09/09/24 08:02 Amiodarone Hcl 200 Mg Tablet PO 10/08/24 18:59 200 mg BID GHADA Administration Bisacodyl 10 mg 09/07/24 21:29 Bisacodyl 10 Mg Supp ME 10/07/24 21:28 QDAY PRN Constipation Protocol Gabapentin 100 mg 09/07/24 22:00 09/09/24 05:15 Gabapentin 100 Mg Capsule PO 10/07/24 21:59 100 mg TID GHADA Administration Ceftriaxone Sodium/Dextrose 1 gm in 50 mls @ 100 mls/hr 09/07/24 18:43 09/09/24 08:02 Rocephin/D5w 1gm Iv Premix IV 09/14/24 18:42 100 mls/hr Q12HR GHADA Administration Doxycycline Hyclate 100 mg/ 100 mls @ 100 mls/hr 09/08/24 09:00 09/09/24 08:03 Sodium Chloride IV 09/15/24 08:59 100 mls/hr BID GHADA Administration Sodium Chloride 1,000 mls @ 100 mls/hr 09/09/24 01:58 09/09/24 02:09 Ns IV 10/09/24 01:57 100 mls/hr .Q10H GHADA Administration Magnesium Hydroxide 30 ml 09/07/24 21:29 Milk Of Magnesia Susp 30 Ml Udc PO 10/07/24 21:28 QDAY PRN CONSTIPATION Protocol Metoclopramide HCl 10 mg 09/07/24 18:37 Metoclopramide Inj 5 Mg/Ml Vial 2 Ml IVP 10/07/24 18:36 Q6H PRN NAUSEA OR VOMITING Protocol Morphine Sulfate 15 mg 09/07/24 21:45 09/09/24 10:21 Morphine Sulf 15 Mg Tabcr PO 09/12/24 21:44 15 mg Q12H GHADA Administration Protocol Pantoprazole Sodium 40 mg 09/08/24 09:00 09/09/24 08:03 Pantoprazole Inj 40 Mg Vial IVP 10/08/24 08:59 40 mg QDAY GHADA Administration Rivaroxaban 20 mg 09/08/24 21:00 09/08/24 21:02 Rivaroxaban 10 Mg Tablet PO 10/08/24 20:59 20 mg HS GHADA Administration Plan Nneka Burciaga is a 74-year-old female with a history of enlarged CBD s/p ERCP on 07/2024, COPD on 2 L home O2, HFpEF (60% on 07/2024), a-fib on Xarelto, hypertension, and chronic pain on home morphine who is admitted for AHRF secondary to pneumonia secondary to possible aspiration event. #Acute on chronic hypoxic respiratory failure secondary to possible aspiration event #Right lower lobe pneumonia #Lactic acidosis, improving Patient was in normal state of health prior to admission and per son she had an episode of emesis when eating. Given acuity of patient's presentation and CXR findings, etiology may be due to aspiration. However, at bedside in ED vital monitor showed what appeared to be VT/VF and thus will refrain from QTc prolonging agents (i.e. doxycycline, metronidazole). In ED, she was saturating in mid-90s on 15 L oxymask. At baseline, she utilizes 2 L oxygen mostly when sleeping and longstanding history of smoking and likely has COPD for which can keep O2 titrated between 88-92%. ? Ceftriaxone and doxycycline (09/07-) ? Blood cultures 09/07: NGTD ? Sputum cultures ordered, not obtained ? Supplemental oxygen as needed ? Keep oxygen titrated between 88 and 92% #Atrial fibrillation on Xarelto #Rate-related BBB In ED engine monitor revealed wide QRS complexes with heart rate above 100 bpm and concern for nonsustained VT. Cardiology evaluated patient and stated that patient likely has a rate-related BBB due to underlying conditions such as infection and/or dehydration. QRS complexes have similar morphology, however during VT they tend to have more uniform and narrower QRS complexes in comparison to BBB with a typical shape that is different from baseline. VT typically has a higher heart rate above 150 and is sustained or paroxysmal. At baseline, rhythm is a-fib and appearance of BBB on top of that may confuse the diagnosis with VT. ? Per cardiology recs, transition to PO amiodarone 200 mg BID ? Continue treating underlying cause ? Close monitoring of hemodynamics ? Xarelto 20 mg p.o. at bedtime ? Will hold Coreg given that MAP was 67 in ED #HFpEF (60% on 07/2024) Follows Dr. Browning outpatient. Does not appear to be fluid overload on exam, no vascular congestion on CXR, and CBC shows what appears to be hemoconcentration given elevated WBC, hemoglobin, and platelets though may be reactive thrombocytosis. Additionally, presents with SAPPHIRE given previous creatinine of 0.7 and now presents with creatinine of 1.0 with BUN/creatinine ratio > 20. Thus, patient likely overall dehydrated and will hold diuretics at this time. 300 cc NS bolus, can give additional IVF if indicated. ? Cardiology following as above ? NS at 100 cc/hr ? Hold diuretics, can resume as needed ? 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 After procedure, she continued to have elevated T. bili and transaminitis and again presents with relatively similar values. ? Follow-up GI outpatient ? Will need repeat ERCP with spyglass to examine CBD with possible biopsy #Chronic pain ? Gabapentin 100 mg p.o. three times daily ? Morphine ER 15 mg twice per day ? Follow-up med rec #COPD on 2 L home O2 Does not have any inhalers at home per son. ? Duonebs as needed Hospital management: Disposition: IV antibiotics, pending cultures, cardiology following Diet: low sodium diet, disphagia 1 diet, pending formal speech/swallow eval Lines: PIV DVT prophylaxis: xarelto GI prophylaxis: pantoprazole CODE STATUS: DNR/DNI ----- Plan discussed with attending physician Dr. Gatito Smith MD PGY-1 Internal Medicine Attending Provider Attestation/Addendum I have examined the patient, reviewed labs and imaging findings, discussed the case with the resident(s), and reviewed entered orders. I agree with the plan of care as outlined in this note, with these additional summaries/recommendations: Patient and son seen at bedside. No acute overnight events. We will continue supplemental oxygen for acute on chronic hypoxic respiratory failure. On admission patient was requiring 15 L oxy mask and has been weaned down to 4-5 L although still endorsing significant shortness of breath. Acute component most likely secondary to community-acquired pneumonia. Chest x-ray showed pneumonia right base. Unclear of aspiration event although patient does endorse difficulty swallowing at times. Continue dysphagia diet and speech therapy to evalulate today. Continue IV antibiotics for bacterial pneumonia most likely secondary to gram-negative rods. Blood cxs preliminary show no growth at 24 hours. Patient has known chronic atrial fibrillation and developed rapid ventricular response on admission. Cardiology consulted, recommendations appreciated. Patient s/p amiodarone gtt and transitioned to oral amiodarone. Continue home Xarelto. Hold home Coreg for hypotension. Patient appears volume down and started on fluids. Continue home gabapentin and oral morphine. Patient has history of biliary stricture with stent placement on last admission. Patient will need to follow-up with GI outpatient for ERCP with spyglass which is not available in our facility. Per patient and son they do not want any further workup or invasive treatments for biliary stricture. Of note patient had advanced directive from [facility] signed 08/15/2024 indicating comfort treatments only although this was discussed with patient and son. They would like to continue with treatment although DNR/DNI. Continue breathing treatments for history of COPD. Please see residents note for additional details and management. Dr. Gatito MD
--- NOTE | 2024-09-09 12:56 | PC.DIETICIAN ---
Patient meets ASPEN criteria for Moderate acute disease or injury related malnutrition due to: 1. Significant unintentional weight loss (~35 lb in 1 month). 2. Inadequate oral intake.
--- NOTE | 2024-09-09 14:30 | PC.SS ---
Rounding Note: Plan is continue to wean patient's oxygen requirements. Patient receiving IV antibiotics.
--- NOTE | 2024-09-09 15:00 | PD.RESPRO ---
Documentation for date of: 09/09/24 Subjective Subjective Interval history: Patient seen and examined at bedside. No new cardiac complaints. Renal function has improved with a BUN of 27 from 31 and a creatinine a is 0.7 from previous level of 1.0. Baseline creatinine is around 0.7 and baseline BUN is around 15 Recommend to start the patient on IV fluids normal saline for now as patient is dehydrated with acute kidney injury. Liver function tests are still at the same level and only improved a little since admission. IV fluids were started on admission and have been stopped this evening. Will reevaluate the patient in the morning after the morning labs. Reviewed the telemetry. Patient does not have any kind of VT episodes or NSVT. She did have atrial fibrillation with RVR with rate related bundle branch block or evidence of conduction delay. Amiodarone drip will complete today and recommend to continue oral amiodarone 200 mg twice daily. If no further procedures are planned, would recommend to restart anticoagulation. Would prefer Eliquis or Xarelto but can continue Xarelto for now. Keep potassium greater than 4 and magnesium greater than 2.0 at all times. Patient started on antibiotics for the aspiration pneumonia. Exam Vital Signs Temp Pulse Resp BP Pulse Ox O2 Del Method O2 Flow Rate 97.8 F 102 H 24 H 135/65 H 97 Nasal Cannula 4 09/09/24 16:00 09/09/24 21:00 09/09/24 16:00 09/09/24 21:00 09/09/24 16:00 09/09/24 16:00 09/09/24 16:00 Narrative Exam General: Alert and oriented x3. In no acute distress. Eyes: Pupils are equal and reactive to light bilaterally. HEENT: Atraumatic, normocephalic. No JVD noted. Mucosa moist. Cardiovascular: Normal S1 and S2. Irregularly irregular, tachycardic, 2 out of 6 systolic murmur at the apex, no peripheral pitting edema noted. Respiratory: No respiratory distress. Lungs are clear to auscultation bilaterally. No wheezing or crackles heard. Abdomen: Soft, nontender, nondistended. Skin: No rash. Warm to touch. Musculoskeletal: No gross injuries. Able to move all 4 extremities. Neuro: Alert and oriented x3. No focal neuro deficits. Psych: Normal affect and mood Objective Labs 09/09/24 04:36 09/09/24 04:36 Labs: Laboratory Results - last 24 hr 09/09/24 04:36 WBC 23.4 H RBC 3.52 L Hgb 10.9 L Hct 32.6 L MCV 93 MCH 31.0 MCHC 33.4 RDW Std Deviation 69.8 H Plt Count 397 Neut % (Auto) 81 H Lymph % (Auto) 5 L [place] % (Auto) 12 Eos % (Auto) 1 Baso % (Auto) 0 Neut # (Auto) 18.9 H Lymph # (Auto) 1.2 [place] # (Auto) 2.8 H Eos # (Auto) 0.3 Baso # (Auto) 0.1 Immature Gran # (Auto) 0.14 H Absolute Nucleated RBC 0.00 Immature Gran % 1 H Nucleated RBC % 0 Sodium 132 L Potassium 3.5 D Chloride 98 Carbon Dioxide 27.4 Anion Gap 7 BUN 27 H Creatinine 0.7 Estim Creat Clear Calc 74.3 eGFR > 60 BUN/Creatinine Ratio 39 H Glucose 71 L Calculated Osmolality 267 L Calcium 8.8 Corrected Calcium 10.1 Phosphorus 2.7 Magnesium 2.0 Total Bilirubin 1.2 AST 130 H ALT 64 H Alkaline Phosphatase 283 H D Total Protein 5.8 Albumin 2.4 L Globulin 3.4 Albumin/Globulin Ratio 0.7 L ABG Interpretation ABG results: 09/07/24 14:37 ABG pH 7.44 ABG pCO2 46 ABG pO2 65 L ABG HCO3 31 H ABG O2 Saturation 93 ABG Base Excess 6 H Quality Measures Quality Measures none Advance care planning discussed with:: patient Assessment & Plan Assessment Current Active Medications: Generic Name Dose Route Start Last Admin Trade Name Darío PRN Reason Stop Dose Admin Acetaminophen 650 mg 09/07/24 18:37 Acetaminophen 325 Mg Tablet PO 10/07/24 18:36 Q6H PRN PAIN OR FEVER > 100.4 Albuterol/Ipratropium 3 ml 09/07/24 20:00 Albuterol/Ipratropium (Duoneb) Rt Lauren 3 Ml Nebu INH 10/07/24 19:59 Q2HR PRN SHORTNESS OF BREATH OR WHEEZE Amiodarone HCl 200 mg 09/08/24 19:00 09/09/24 21:00 Amiodarone Hcl 200 Mg Tablet PO 10/08/24 18:59 200 mg BID GHADA Administration Bisacodyl 10 mg 09/07/24 21:29 Bisacodyl 10 Mg Supp MT 10/07/24 21:28 QDAY PRN Constipation Protocol Gabapentin 100 mg 09/07/24 22:00 09/09/24 21:00 Gabapentin 100 Mg Capsule PO 10/07/24 21:59 100 mg TID GHADA Administration Ceftriaxone Sodium/Dextrose 1 gm in 50 mls @ 100 mls/hr 09/07/24 18:43 09/09/24 21:01 Rocephin/D5w 1gm Iv Premix IV 09/14/24 18:42 100 mls/hr Q12HR GHADA Administration Doxycycline Hyclate 100 mg/ 100 mls @ 100 mls/hr 09/08/24 09:00 09/09/24 08:03 Sodium Chloride IV 09/15/24 08:59 100 mls/hr BID GHADA Administration Sodium Chloride 1,000 mls @ 100 mls/hr 09/09/24 01:58 09/09/24 13:35 Ns IV 10/09/24 01:57 100 mls/hr .Q10H GHADA Administration Magnesium Hydroxide 30 ml 09/07/24 21:29 Milk Of Magnesia Susp 30 Ml Udc PO 10/07/24 21:28 QDAY PRN CONSTIPATION Protocol Metoclopramide HCl 10 mg 09/07/24 18:37 Metoclopramide Inj 5 Mg/Ml Vial 2 Ml IVP 10/07/24 18:36 Q6H PRN NAUSEA OR VOMITING Protocol Morphine Sulfate 15 mg 09/07/24 21:45 09/09/24 21:00 Morphine Sulf 15 Mg Tabcr PO 09/12/24 21:44 15 mg Q12H GHADA Administration Protocol Pantoprazole Sodium 40 mg 09/08/24 09:00 09/09/24 08:03 Pantoprazole Inj 40 Mg Vial IVP 10/08/24 08:59 40 mg QDAY GHADA Administration Rivaroxaban 20 mg 09/08/24 21:00 09/09/24 21:00 Rivaroxaban 10 Mg Tablet PO 10/08/24 20:59 20 mg HS GHADA Administration Plan [id number] female with a past medical history of HFpEF with an EF of 60 to 65%, paroxysmal atrial fibrillation on anticoagulation, essential hypertension, recent admission with enlarged CBD status post ERCP in July 2024, obesity, hypothyroidism presented to the emergency department for further evaluation of hypoxia with questionable aspiration PNA. 1. Acute hypoxic respiratory failure 2. Atrial fibrillation with RVR 3. Wide-complex [id number] 4. Aspiration pneumonia 5. HFpEF with an EF of 60 to 65% 6. Agitation per potential 7. Recent admission with a large CBD status post ERCP in 2024 8. Obesity Patient overall clinical presentation suspicious for possible aspiration pneumonia given the chest x-ray finding and the history. Patient also has elevated procalcitonin at 0.8. And mild lactic acidosis. Primary team did start the patient on antibiotics. Overall clinical picture suggest that patient is severely dehydrated. With elevation of BUN to 30 from baseline of 12 and creatinine to 1.0 from 0.7. Also hemoglobin is increased to 12.5 indicating hemoconcentration as her baseline is around 9-10. Recommend bolus IV fluids as well as maintenance fluids for now. Lasix on hold. Regarding the episode of tachycardia at 110 bpm unlikely VT but could be NSVT. Reviewed the previous EKGs and patient probably has rate related incomplete bundle branch block which could also be the differential. Patient also has history of atrial fibrillation with RVR. She is on amiodarone 200 mg twice daily along with Coreg 3.125 mg twice daily. No Coreg due to the hypotension and start amiodarone 200 mg twice daily which she is at home dosage. Started already on amiodarone bolus as well as drip and recommend to continue it for 1 day. Atrial fibrillation with RVR episode mostly secondary to the acute kidney injury and severe dehydration in the setting of possible aspiration pneumonia and poor oral intake. Recent echo from July 2024 reviewed which showed normal-sized left ventricle with normal left wall thickness wall motion ejection fraction of approximately 60%. Mildly dilated left atrium. RV size is mildy increased with normal systolic function. The estimated RVSP, 46 mmHg. Mitral valve thickening mild mitral regurgitation. Mild tricuspid regurgitation. Patient does not appear to be in heart failure. Strict input output, daily weights and 2 g sodium diet. No repeat echo needed. 09/09/2024: Renal function has improved with a BUN of 27 from 31 and a creatinine a is 0.7 from previous level of 1.0. Baseline creatinine is around 0.7 and baseline BUN is around 15 Recommend to start the patient on IV fluids normal saline for now as patient is dehydrated with acute kidney injury. Liver function tests are still at the same level and only improved a little since admission. IV fluids were started on admission and have been stopped this evening. Will reevaluate the patient in the morning after the morning labs. Reviewed the telemetry. Patient does not have any kind of VT episodes or NSVT. She did have atrial fibrillation with RVR with rate related bundle branch block or evidence of conduction delay. Amiodarone drip will complete today and recommend to continue oral amiodarone 200 mg twice daily. If no further procedures are planned, would recommend to restart anticoagulation. Would prefer Eliquis or Xarelto but can continue Xarelto for now. Keep potassium greater than 4 and magnesium greater than 2.0 at all times. Patient started on antibiotics for the aspiration pneumonia. Management of rest of the medical conditions as per primary team and other consultants. Thank you for the consult and allowing me to participate in the care of the patient. Cardiology will continue to follow. Tico Doll M.D. Interventional Cardiology
[2024-09-09] MEDS: RIVAROXABAN 10 MG TABLET 20 MG PO (21:00)
[2024-09-10] VITALS (9 sets, daily range): BP systolic 98–128; BP diastolic 46–79; PULSE 65–110; RESP 16–28; TEMP 36–36.1; O2SAT 92–98
[2024-09-10] MEDS: GABAPENTIN 100 MG CAPSULE PO ×3 (05:50→21:07)
[2024-09-10 06:02] LABS: Basophils # (Auto) 0.1 Thou/mm3 (0.0-0.2); Basophils % (Auto) 0 % (0-2.5); Eosinophils # (Auto) 0.6 Thou/mm3 (0.0-0.5); Eosinophils % (Auto) 2 % (0-10); Hematocrit 33.4 % (36.0-46.0); Hemoglobin 10.9 g/dL (12.0-16.0); Immature Granulocytes Auto 0.21 Thou/mm3 (0.00-0.00); Lymphocytes # (Auto) 1.4 Thou/mm3 (1.0-4.8); Lymphocytes % (Auto) 6 % (10-50); Mean Corpuscular HGB Conc 32.6 g/dl (31.0-37.0); Mean Corpuscular Hemoglobin 31.4 pg (25.0-35.0); Mean Corpuscular Volume 96 fL (80-100); Monocytes # (Auto) 2.8 Thou/mm3 (0.0-0.8); Monocytes % (Auto) 11 % (0-12); Neutrophils # (Auto) 20.7 Thou/mm3 (1.8-7.7); Neutrophils % (Auto) 80 % (37-80); Nucleated Red Blood Cell # 0.00 Thou/mm3 (0.00-0.00); Nucleated Red Blood Cell % 0 /100 WBC (0); Platelet Count 375 Thou/mm3 (140-440); RDW Standard Deviation 73.7 fL (36.4-46.3); Red Blood Count 3.47 Miln/mm3 (4.00-5.20); White Blood Count 25.7 Thou/mm3 (3.6-11.0)
[2024-09-10 06:35] LABS: Alanine Aminotransferase 75 U/L (10-49); Albumin, Serum 2.2 gm/dL (3.4-4.8); Albumin/Globulin Ratio 0.6 (1.2-2.2); Alkaline Phosphatase 293 U/L (46-116); Anion Gap 4 (7-16); Aspartate Amino Transferase 145 U/L (0-34); BUN/Creatinine Ratio 27 Ratio (12-20); Bilirubin,Total 1.4 mg/dL (0.3-1.2); Blood Urea Nitrogen 19 mg/dL (9-23); Calcium 8.2 mg/dL (8.3-10.6); Calcium (Corrected) 9.6 mg/dL (8.5-10.1); Carbon Dioxide 26.9 mMol/L (20.0-31.0); Chloride 104 mMol/L (98-107); Creatinine (Component) 0.7 mg/dL (0.6-1.3); Estimated Creatinine Clearance 77.0 mL/min (>60); Globulin 3.9 gm/dL (2.3-3.5); Glucose 82 mg/dL (74-106); Magnesium 2.0 mg/dL (1.6-2.6); Osmolality,Calculated 271 (275-295); Phosphorous 2.4 mg/dL (2.4-5.1); Potassium 4.4 mMol/L (3.4-5.1); Sodium 135 mMol/L (136-145); Total Protein 6.1 gm/dL (5.7-8.2); eGFR > 60 See Note
[2024-09-10] MEDS: AMIODARONE HCL 200 MG TABLET PO ×2 (08:26→21:06)
[2024-09-10] MEDS: cefTRIAXone/D5w 1gm IV premix 1 GM/50 ML BAG IV ×2 (08:29→21:08)
[2024-09-10] MEDS: DOXYCYCLINE INJ 100 MG in SODIUM CHLORIDE 0.9% (POP) 100 ML IV ×2 (08:29→21:07)
[2024-09-10] MEDS: Morphine Sulf 15 MG TABCR PO ×2 (08:30→21:06)
[2024-09-10] MEDS: ALBUTEROL/IPRATROPIUM (Duoneb) RT SOL 3 ML NEBU INH (12:46)
[2024-09-10 13:54] LABS: Path Review Blood Smear Sent to Pathologist
--- NOTE | 2024-09-10 14:15 | ESPR_ITS ---
<Statement entered by Forest Silva MD - 09/12/24 13:56> I have discussed and was present for the essential components of the history, physical examination, diagnosis, and treatment plan with the resident. I agree with the patient's care as documented by the resident and amended herein by me. Forest Silva MD FACP. Documentation for date of: 09/10/24 Subjective Subjective Interval history: No acute events overnight. Patient states she was feeling a little weak. She denies any fever, headache, chest pain, dyspnea, or abdominal pain. Exam Vital Signs Temp Pulse Resp BP Pulse Ox O2 Del Method O2 Flow Rate 96.8 F 92 22 H 98/63 98 Nasal Cannula 4 09/10/24 12:00 09/10/24 13:03 09/10/24 13:03 09/10/24 12:00 09/10/24 13:03 09/10/24 12:00 09/10/24 13:03 Narrative Exam General: Alert and oriented x3. In no acute distress. Cardiovascular: Normal S1 and S2. Irregularly irregular, tachycardic, 2 out of 6 systolic murmur at the apex, no peripheral pitting edema noted. Respiratory: No respiratory distress. Lungs are clear to auscultation bilaterally. No wheezing or crackles heard. Abdomen: Soft, nontender, nondistended. Skin: No rash. Warm to touch. Musculoskeletal: No gross injuries. Able to move all 4 extremities. Neuro: Alert and oriented x3. No focal neuro deficits. Psych: Normal affect and mood Objective Labs 09/10/24 04:41 09/10/24 04:41 Labs: Laboratory Results - last 24 hr 09/10/24 04:41 WBC 25.7 H RBC 3.47 L Hgb 10.9 L Hct 33.4 L MCV 96 MCH 31.4 MCHC 32.6 RDW Std Deviation 73.7 H Plt Count 375 Neut % (Auto) 80 Lymph % (Auto) 6 L [place] % (Auto) 11 Eos % (Auto) 2 Baso % (Auto) 0 Neut # (Auto) 20.7 H Lymph # (Auto) 1.4 [place] # (Auto) 2.8 H Eos # (Auto) 0.6 H Baso # (Auto) 0.1 Immature Gran # (Auto) 0.21 H Absolute Nucleated RBC 0.00 Immature Gran % 1 H Nucleated RBC % 0 Smear Path Review Sent to Pathologist Sodium 135 L Potassium 4.4 D Chloride 104 Carbon Dioxide 26.9 Anion Gap 4 L BUN 19 Creatinine 0.7 Estim Creat Clear Calc 77.0 eGFR > 60 BUN/Creatinine Ratio 27 H Glucose 82 Calculated Osmolality 271 L Calcium 8.2 L Corrected Calcium 9.6 Phosphorus 2.4 Magnesium 2.0 Total Bilirubin 1.4 H AST 145 H ALT 75 H Alkaline Phosphatase 293 H Total Protein 6.1 Albumin 2.2 L Globulin 3.9 H Albumin/Globulin Ratio 0.6 L ABG Interpretation ABG results: 09/07/24 14:37 ABG pH 7.44 ABG pCO2 46 ABG pO2 65 L ABG HCO3 31 H ABG O2 Saturation 93 ABG Base Excess 6 H Quality Measures Quality Measures none Advance care planning discussed with:: patient Assessment & Plan Assessment Current Active Medications: Generic Name Dose Route Start Last Admin Trade Name Freq PRN Reason Stop Dose Admin Acetaminophen 650 mg 09/07/24 18:37 Acetaminophen 325 Mg Tablet PO 10/07/24 18:36 Q6H PRN PAIN OR FEVER > 100.4 Albuterol/Ipratropium 3 ml 09/07/24 20:00 Albuterol/Ipratropium (Duoneb) Rt Lauren 3 Ml Nebu INH 10/07/24 19:59 Q2HR PRN SHORTNESS OF BREATH OR WHEEZE Amiodarone HCl 200 mg 09/08/24 19:00 09/10/24 08:26 Amiodarone Hcl 200 Mg Tablet PO 10/08/24 18:59 200 mg BID GHADA Administration Bisacodyl 10 mg 09/07/24 21:29 Bisacodyl 10 Mg Supp RI 10/07/24 21:28 QDAY PRN Constipation Protocol Gabapentin 100 mg 09/07/24 22:00 09/10/24 05:50 Gabapentin 100 Mg Capsule PO 10/07/24 21:59 100 mg TID GHADA Administration Ceftriaxone Sodium/Dextrose 1 gm in 50 mls @ 100 mls/hr 09/07/24 18:43 09/10/24 08:29 Rocephin/D5w 1gm Iv Premix IV 09/14/24 18:42 100 mls/hr Q12HR GHADA Administration Doxycycline Hyclate 100 mg/ 100 mls @ 100 mls/hr 09/08/24 09:00 09/10/24 08:29 Sodium Chloride IV 09/15/24 08:59 100 mls/hr BID GHADA Administration Magnesium Hydroxide 30 ml 09/07/24 21:29 Milk Of Magnesia Susp 30 Ml Udc PO 10/07/24 21:28 QDAY PRN CONSTIPATION Protocol Metoclopramide HCl 10 mg 09/07/24 18:37 Metoclopramide Inj 5 Mg/Ml Vial 2 Ml IVP 10/07/24 18:36 Q6H PRN NAUSEA OR VOMITING Protocol Morphine Sulfate 15 mg 09/07/24 21:45 09/10/24 08:30 Morphine Sulf 15 Mg Tabcr PO 09/12/24 21:44 15 mg Q12H GHADA Administration Protocol Pantoprazole Sodium 40 mg 09/08/24 09:00 09/10/24 08:26 Pantoprazole Inj 40 Mg Vial IVP 10/08/24 08:59 40 mg QDAY GHADA Administration Rivaroxaban 20 mg 09/08/24 21:00 09/09/24 21:00 Rivaroxaban 10 Mg Tablet PO 10/08/24 20:59 20 mg HS GHADA Administration Plan Plan Nneka Burciaga is a 74-year-old female with a history of enlarged CBD s/p ERCP on 07/2024, COPD on 2 L home O2, HFpEF (60% on 07/2024), a-fib on Xarelto, hypertension, and chronic pain on home morphine who is admitted for AHRF secondary to pneumonia secondary to possible aspiration event, currently hospitalized due to fatigue and feeling weak. #Acute on chronic hypoxic respiratory failure secondary to possible aspiration event #Right lower lobe pneumonia #Lactic acidosis, improving #fatigue, improving Patient was in normal state of health prior to admission and per son she had an episode of emesis when eating. Given acuity of patient's presentation and CXR findings, etiology may be due to aspiration. However, at bedside in ED vital monitor showed what appeared to be VT/VF and thus will refrain from QTc prolonging agents (i.e. doxycycline, metronidazole). In ED, she was saturating in mid-90s on 15 L oxymask. At baseline, she utilizes 2 L oxygen mostly when sleeping and longstanding history of smoking and likely has COPD for which can keep O2 titrated between 88-92%. 09/10/2024: Oxygen saturation at 94% on 4L NC. ? Ceftriaxone and doxycycline (09/07-) ? Blood cultures 09/07: NGTD ? Sputum cultures ordered, not obtained ? Supplemental oxygen as needed ? Keep oxygen titrated between 88 and 92% - Physical Therapy ordered, planning on home health. #Atrial fibrillation on Xarelto #Rate-related BBB In ED laboratory monitor revealed wide QRS complexes with heart rate above 100 bpm and concern for nonsustained VT. Cardiology evaluated patient and stated that patient likely has a rate-related BBB due to underlying conditions such as infection and/or dehydration. QRS complexes have similar morphology, however during VT they tend to have more uniform and narrower QRS complexes in comparison to BBB with a typical shape that is different from baseline. VT typically has a higher heart rate above 150 and is sustained or paroxysmal. At baseline, rhythm is a-fib and appearance of BBB on top of that may confuse the diagnosis with VT. ? Per cardiology recs, continue PO amiodarone 200 mg BID ? Continue treating underlying cause ? Close monitoring of hemodynamics ? Xarelto 20 mg p.o. at bedtime ? Will continue holding Coreg given that MAP was 67 in ED. Will continue if BP permits. #HFpEF (60% on 07/2024) Follows Dr. Browning outpatient. Does not appear to be fluid overload on exam, no vascular congestion on CXR, and CBC shows what appears to be hemoconcentration given elevated WBC, hemoglobin, and platelets though may be reactive thrombocytosis. Additionally, presents with SAPPHIRE given previous creatinine of 0.7 and now presents with creatinine of 1.0 with BUN/creatinine ratio > 20. Thus, patient likely overall dehydrated and will hold diuretics at this time. 300 cc NS bolus, can give additional IVF if indicated. ? Cardiology following as above ? NS at 100 cc/hr ? Hold diuretics, can resume as needed ? 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 After procedure, she continued to have elevated T. bili and transaminitis and again presents with relatively similar values. ? Follow-up GI outpatient ? Will need repeat ERCP with spyglass to examine CBD with possible biopsy #Chronic pain ? Gabapentin 100 mg p.o. three times daily ? Morphine ER 15 mg twice per day #COPD on 2 L home O2 Does not have any inhalers at home per son. ? Duonebs as needed #Chronic Leukocytosis, reactive vs inflammatory vs infective process Patient has a history of reactive and infectious etiologies for leukocytosis on previous admissions. WBC have been elevated >20 this admission, consistent with previous admissions. Peripheral smear done 07/2024 reported reactive leukocytosis with no morphological abnormality identified. - Will order peripheral smear pathology to recheck for any changes, given history noted above. Hospital management: Disposition: IV antibiotics, blood cultures NGTD, cardiology following Diet: low sodium diet, disphagia 1 diet, pending formal speech/swallow eval Lines: PIV DVT prophylaxis: xarelto GI prophylaxis: pantoprazole CODE STATUS: DNR/DNI ----- Plan discussed with attending physician Dr. Shira Murdock MD PGY-1 Internal Medicine Patient seen and examined at bedside, no acute overnight events. I discussed and supervised with the nutrition internship physician who took care of this patient. I personally saw and examined the patient. I agree with most of the assessment and plan. Patient reports weakness and fatigue. Significantly elevated WBC's, peripheral blood smear ordered. PT eval ordered for patient. Duonebs x1 given for wheezing. ST eval completed, patient cleared for dysphagia level 2 diet. Plan of care discussed with attending Dr. Silva. Danyel Marie MD PGY-2
--- NOTE | 2024-09-10 16:12 | PC.SS ---
SS follow up note; Patient is on IV ABX. Pending PT eval. Patient will discharge back to [place] tomorrow.
--- NOTE | 2024-09-10 18:06 | PD.RESPRO ---
Documentation for date of: 09/10/24 Subjective Subjective Interval history: Patient is seen and examined at bedside No acute overnight events. Amiodarone drip stopped and patient is started on oral amiodarone Patient is complaining of mild difficulty breathing Vitals are stable and patient is on oxygen through nasal cannula saturating around 96 to 98% On physical examination, bilateral diffuse wheeze and rhonchi heard Labs showed leukocytosis, WBC 25.7, sodium 135, total bilirubin 1.4, AST 145, ALT 75 .Patient was found to have transaminitis since 07/2024 Underwent ERCP in 07/2024 Reviewed telemetry and patient is still in atrial fibrillation with heart rate around 100-110 Continue amiodarone and rivaroxaban for now Keep potassium greater than 4 and magnesium greater than 2 If transaminitis gets worsened, might consider to discontinue amiodarone Ordered chest physiotherapy and keep the patient in upright position to prevent further aspiration Exam Vital Signs Temp Pulse Resp BP Pulse Ox O2 Del Method O2 Flow Rate 97.0 F 85 18 114/72 97 Nasal Cannula 4 09/10/24 16:00 09/10/24 16:00 09/10/24 16:09/10/24 16:00 09/10/24 16:09/10/24 16:09/10/24 16:00 Narrative Exam General: Awake. HEENT: Normocephalic, atraumatic, mucous membranes moist. Heart: Regular rate and rhythm, no murmurs. Lungs: bilateral diffuse expiratory wheeze and rhonchi heard. Abdomen: Soft, nondistended, nontender, positive bowel sounds. ?No guarding or rebound tenderness. Neurologic: Alert and oriented x3, no gross neurological deficit, and patient able to move all 4 extremities. Extremities: No edema. Skin: No rash or ecchymoses. Patient's abdominal with the patient Objective Labs 09/12/24 05:23 09/12/24 05:23 Labs: Laboratory Results - last 24 hr 09/10/24 04:41 WBC 25.7 H RBC 3.47 L Hgb 10.9 L Hct 33.4 L MCV 96 MCH 31.4 MCHC 32.6 RDW Std Deviation 73.7 H Plt Count 375 Neut % (Auto) 80 Lymph % (Auto) 6 L [place] % (Auto) 11 Eos % (Auto) 2 Baso % (Auto) 0 Neut # (Auto) 20.7 H Lymph # (Auto) 1.4 [place] # (Auto) 2.8 H Eos # (Auto) 0.6 H Baso # (Auto) 0.1 Immature Gran # (Auto) 0.21 H Absolute Nucleated RBC 0.00 Immature Gran % 1 H Nucleated RBC % 0 Smear Path Review Sent to Pathologist Sodium 135 L Potassium 4.4 D Chloride 104 Carbon Dioxide 26.9 Anion Gap 4 L BUN 19 Creatinine 0.7 Estim Creat Clear Calc 77.0 eGFR > 60 BUN/Creatinine Ratio 27 H Glucose 82 Calculated Osmolality 271 L Calcium 8.2 L Corrected Calcium 9.6 Phosphorus 2.4 Magnesium 2.0 Total Bilirubin 1.4 H AST 145 H ALT 75 H Alkaline Phosphatase 293 H Total Protein 6.1 Albumin 2.2 L Globulin 3.9 H Albumin/Globulin Ratio 0.6 L ABG Interpretation ABG results: 09/07/24 14:37 ABG pH 7.44 ABG pCO2 46 ABG pO2 65 L ABG HCO3 31 H ABG O2 Saturation 93 ABG Base Excess 6 H Quality Measures Quality Measures none Advance care planning discussed with:: patient Assessment & Plan Assessment Current Active Medications: Generic Name Dose Route Start Last Admin Trade Name Freq PRN Reason Stop Dose Admin Acetaminophen 650 mg 09/07/24 18:37 Acetaminophen 325 Mg Tablet PO 10/07/24 18:36 Q6H PRN PAIN OR FEVER > 100.4 Albuterol/Ipratropium 3 ml 09/07/24 20:00 Albuterol/Ipratropium (Duoneb) Rt Lauren 3 Ml Nebu INH 10/07/24 19:59 Q2HR PRN SHORTNESS OF BREATH OR WHEEZE Amiodarone HCl 200 mg 09/08/24 19:00 09/10/24 08:26 Amiodarone Hcl 200 Mg Tablet PO 10/08/24 18:59 200 mg BID GHADA Administration Bisacodyl 10 mg 09/07/24 21:29 Bisacodyl 10 Mg Supp VT 10/07/24 21:28 QDAY PRN Constipation Protocol Gabapentin 100 mg 09/07/24 22:00 09/10/24 14:26 Gabapentin 100 Mg Capsule PO 10/07/24 21:59 100 mg TID GHADA Administration Ceftriaxone Sodium/Dextrose 1 gm in 50 mls @ 100 mls/hr 09/07/24 18:43 09/10/24 08:29 Rocephin/D5w 1gm Iv Premix IV 09/14/24 18:42 100 mls/hr Q12HR GHADA Administration Doxycycline Hyclate 100 mg/ 100 mls @ 100 mls/hr 09/08/24 09:00 09/10/24 08:29 Sodium Chloride IV 09/15/24 08:59 100 mls/hr BID GHADA Administration Magnesium Hydroxide 30 ml 09/07/24 21:29 Milk Of Magnesia Susp 30 Ml Udc PO 10/07/24 21:28 QDAY PRN CONSTIPATION Protocol Metoclopramide HCl 10 mg 09/07/24 18:37 Metoclopramide Inj 5 Mg/Ml Vial 2 Ml IVP 10/07/24 18:36 Q6H PRN NAUSEA OR VOMITING Protocol Morphine Sulfate 15 mg 09/07/24 21:45 09/10/24 08:30 Morphine Sulf 15 Mg Tabcr PO 09/12/24 21:44 15 mg Q12H GHADA Administration Protocol Pantoprazole Sodium 40 mg 09/08/24 09:00 09/10/24 08:26 Pantoprazole Inj 40 Mg Vial IVP 10/08/24 08:59 40 mg QDAY GHADA Administration Rivaroxaban 20 mg 09/08/24 21:00 09/09/24 21:00 Rivaroxaban 10 Mg Tablet PO 10/08/24 20:59 20 mg HS GHADA Administration Plan [id number] female with a past medical history of HFpEF with an EF of 60 to 65%, paroxysmal atrial fibrillation on anticoagulation, essential hypertension, recent admission with enlarged CBD status post ERCP in July 2024, obesity, hypothyroidism presented to the emergency department for further evaluation of hypoxia with questionable aspiration PNA. 1. Acute hypoxic respiratory failure 2. Atrial fibrillation with RVR 3. Wide-complex [id number] 4. Aspiration pneumonia 5. HFpEF with an EF of 60 to 65% 6. Agitation per potential 7. Recent admission with a large CBD status post ERCP in 2024 8. Obesity Patient overall clinical presentation suspicious for possible aspiration pneumonia given the chest x-ray finding and the history. Patient also has elevated procalcitonin at 0.8. And mild lactic acidosis. Primary team did start the patient on antibiotics. Overall clinical picture suggest that patient is severely dehydrated. With elevation of BUN to 30 from baseline of 12 and creatinine to 1.0 from 0.7. Also hemoglobin is increased to 12.5 indicating hemoconcentration as her baseline is around 9-10. Recommend bolus IV fluids as well as maintenance fluids for now. Lasix on hold. Regarding the episode of tachycardia at 110 bpm unlikely VT but could be NSVT. Reviewed the previous EKGs and patient probably has rate related incomplete bundle branch block which could also be the differential. Patient also has history of atrial fibrillation with RVR. She is on amiodarone 200 mg twice daily along with Coreg 3.125 mg twice daily. No Coreg due to the hypotension and start amiodarone 200 mg twice daily which she is her home dose. Initially started on amiodarone bolus as well as drip and later changed to oral medication Atrial fibrillation with RVR episode mostly secondary to the acute kidney injury and severe dehydration in the setting of possible aspiration pneumonia and poor oral intake. Recent echo from July 2024 reviewed which showed normal-sized left ventricle with normal left wall thickness wall motion ejection fraction of approximately 60%. Mildly dilated left atrium. RV size is mildy increased with normal systolic function. The estimated RVSP, 46 mmHg. Mitral valve thickening mild mitral regurgitation. Mild tricuspid regurgitation. Patient does not appear to be in heart failure. Strict input output, daily weights and 2 g sodium diet. No repeat echo needed. 09/10/2024 Patient is seen and examined at bedside No acute overnight events. Amiodarone drip stopped and patient is started on oral amiodarone Patient is complaining of mild difficulty breathing Vitals are stable and patient is on oxygen through nasal cannula saturating around 96 to 98% On physical examination, bilateral diffuse wheeze and rhonchi heard Labs showed leukocytosis, WBC 25.7, sodium 135, total bilirubin 1.4, AST 145, ALT 75 .Patient was found to have transaminitis since 07/2024 Underwent ERCP in 07/2024 Reviewed telemetry and patient is still in atrial fibrillation with heart rate around 100-110 Continue amiodarone and rivaroxaban for now Keep potassium greater than 4 and magnesium greater than 2 If transaminitis gets worsened, might consider to discontinue amiodarone Ordered chest physiotherapy and keep the patient in upright to prevent further aspiration Management of rest of the medical conditions as per primary team and other consultants. Thank you for the consult and allowing me to participate in the care of the patient. Cardiology will continue to follow. Patient plan of care was discussed with Real Estate Developer Dr. Sharmila Ashley, PGY1 Attending Provider Attestation/Addendum I have personally seen and examined the patient separately on the above date of service and discussed the plan of care with the resident. I reviewed the resident Dr. Ashley consultation progress note and agree with the resident findings and plan in the note above and have also edited the documentation to reflect my findings and plan. Tico Doll M.D. Interventional Cardiology
[2024-09-10] MEDS: RIVAROXABAN 10 MG TABLET 20 MG PO (21:07)
[2024-09-11] VITALS (9 sets, daily range): BP systolic 108–126; BP diastolic 57–89; PULSE 82–118; RESP 18–22; TEMP 36.1–37.1; O2SAT 95–97
[2024-09-11] MEDS: METOCLOPRAMIDE INJ 5 MG/ML VIAL 2 ML 10 MG IVP (04:17)
[2024-09-11] MEDS: GABAPENTIN 100 MG CAPSULE PO ×3 (05:36→22:19)
[2024-09-11 06:52] LABS: Basophils # (Auto) 0.1 Thou/mm3 (0.0-0.2); Basophils % (Auto) 0 % (0-2.5); Eosinophils # (Auto) 0.2 Thou/mm3 (0.0-0.5); Eosinophils % (Auto) 1 % (0-10); Hematocrit 35.6 % (36.0-46.0); Hemoglobin 11.7 g/dL (12.0-16.0); Immature Granulocytes Auto 0.36 Thou/mm3 (0.00-0.00); Lymphocytes # (Auto) 1.4 Thou/mm3 (1.0-4.8); Lymphocytes % (Auto) 4 % (10-50); Mean Corpuscular HGB Conc 32.9 g/dl (31.0-37.0); Mean Corpuscular Hemoglobin 31.6 pg (25.0-35.0); Mean Corpuscular Volume 96 fL (80-100); Monocytes # (Auto) 3.6 Thou/mm3 (0.0-0.8); Monocytes % (Auto) 12 % (0-12); Neutrophils # (Auto) 25.1 Thou/mm3 (1.8-7.7); Neutrophils % (Auto) 82 % (37-80); Nucleated Red Blood Cell # 0.00 Thou/mm3 (0.00-0.00); Nucleated Red Blood Cell % 0 /100 WBC (0); Platelet Count 363 Thou/mm3 (140-440); RDW Standard Deviation 71.7 fL (36.4-46.3); Red Blood Count 3.70 Miln/mm3 (4.00-5.20); White Blood Count 30.6 Thou/mm3 (3.6-11.0)
[2024-09-11 07:35] LABS: Alanine Aminotransferase 86 U/L (10-49); Albumin, Serum 2.3 gm/dL (3.4-4.8); Albumin/Globulin Ratio 0.6 (1.2-2.2); Alkaline Phosphatase 328 U/L (46-116); Anion Gap 5 (7-16); Aspartate Amino Transferase 148 U/L (0-34); BUN/Creatinine Ratio 27 Ratio (12-20); Bilirubin,Total 1.8 mg/dL (0.3-1.2); Blood Urea Nitrogen 19 mg/dL (9-23); Calcium 8.4 mg/dL (8.3-10.6); Calcium (Corrected) 9.8 mg/dL (8.5-10.1); Carbon Dioxide 27.2 mMol/L (20.0-31.0); Chloride 102 mMol/L (98-107); Creatinine (Component) 0.7 mg/dL (0.6-1.3); Estimated Creatinine Clearance 76.9 mL/min (>60); Globulin 4.0 gm/dL (2.3-3.5); Glucose 80 mg/dL (74-106); Magnesium 1.8 mg/dL (1.6-2.6); Osmolality,Calculated 269 (275-295); Phosphorous 2.3 mg/dL (2.4-5.1); Potassium 4.2 mMol/L (3.4-5.1); Sodium 134 mMol/L (136-145); Total Protein 6.3 gm/dL (5.7-8.2); eGFR > 60 See Note
--- NOTE | 2024-09-11 08:32 | PC.PT ---
Physical therapy is not needed for insurance auth in this situation. Patient is returning to SNF. Will cancel PT eval.
[2024-09-11] MEDS: Morphine Sulf 15 MG TABCR PO ×2 (10:48→20:54)
[2024-09-11] MEDS: AMIODARONE HCL 200 MG TABLET PO ×2 (10:48→20:53)
[2024-09-11] MEDS: DOXYCYCLINE INJ 100 MG in SODIUM CHLORIDE 0.9% (POP) 100 ML IV ×2 (10:49→20:54)
[2024-09-11] MEDS: cefTRIAXone/D5w 1gm IV premix 1 GM/50 ML BAG IV ×2 (10:49→20:49)
--- NOTE | 2024-09-11 11:42 | PC.SS ---
SS follow up note; Patient is pending Cardiology rec's. Possible discharge back to [place] [facility] today.
--- NOTE | 2024-09-11 13:30 | ESPR_ITS ---
<Statement entered by Jason Browning MD - 09/14/24 18:35> I personally evaluated the patient examined the patient with resident physician appears to be clinically doing fairly well but still has a lot of findings of GI issues cardiac lutz stable remains in A-fib rate control and also been amiodarone. She still has jaundice and bilirubin elevation and multiple other issues addressed by primary team and gastroenterology. Evaluated patient with resident physician PGY 2 Dr. Christian Ashley agree with the treatment plan recommendation as documented in consultation with me Documentation for date of: 09/12/24 Subjective Subjective Interval history: Patient is seen and examined at bedside No acute overnight events. Denies any other complaints Vitals are stable patient is still in atrial fibrillation with controlled ventricular rate, around 100 to 110 bpm On physical examination, noted bronchial breath sounds on right lung Labs showed leukocytosis - Patient does not appear to be in heart failure as of now. - Recommended to continue amiodarone 200 Mg p.o. twice daily for now and rivaroxaban 20 Mg p.o. at bedtime - Held carvedilol and spironolactone for now in view of low blood pressures, if patient is hemodynamically stable can restart medications - Keep potassium greater than 4 and magnesium greater than 2 Exam Vital Signs Temp Pulse Resp BP Pulse Ox O2 Del Method O2 Flow Rate 96.9 F 112 H 20 97/65 91 L Nasal Cannula 2 09/12/24 04:00 09/12/24 04:00 09/12/24 04:00 09/12/24 04:00 09/12/24 04:00 09/12/24 04:00 09/12/24 04:00 Narrative Exam General: Awake. HEENT: Normocephalic, atraumatic, mucous membranes moist. Heart: Regular rate and rhythm, no murmurs. Lungs: Bilateral diffuse wheeze heard, bronchial breath sounds heard in right lung Abdomen: Soft, nondistended, nontender, positive bowel sounds. ?No guarding or rebound tenderness. Neurologic: Alert and oriented x3, no gross neurological deficit, and patient able to move all 4 extremities. Extremities: No edema. Skin: No rash or ecchymoses. Patient's abdominal with the patient Objective Labs 09/13/24 05:46 09/13/24 05:46 Labs: Laboratory Results - last 24 hr 09/12/24 05:23 WBC 35.2 H* RBC 3.61 L Hgb 11.2 L Hct 33.1 L MCV 92 MCH 31.0 MCHC 33.8 RDW Std Deviation 67.2 H Plt Count 261 D Neut % (Auto) 83 H Lymph % (Auto) 4 L [place] % (Auto) 11 Eos % (Auto) 0 Baso % (Auto) 0 Neut # (Auto) 29.2 H Lymph # (Auto) 1.6 [place] # (Auto) 3.9 H Eos # (Auto) 0.1 Baso # (Auto) 0.1 Immature Gran # (Auto) 0.32 H Absolute Nucleated RBC 0.00 Immature Gran % 1 H Nucleated RBC % 0 Sodium 132 L Potassium 4.3 Chloride 102 Carbon Dioxide 24.0 Anion Gap 6 L BUN 17 Creatinine 0.6 Estim Creat Clear Calc 89.8 eGFR > 60 BUN/Creatinine Ratio 28 H Glucose 76 Calculated Osmolality 265 L Calcium 8.1 L Corrected Calcium 9.6 Phosphorus 2.8 Magnesium 1.8 Total Bilirubin 2.0 H AST 141 H ALT 85 H Alkaline Phosphatase 319 H Total Protein 6.0 Albumin 2.1 L Globulin 3.9 H Albumin/Globulin Ratio 0.5 L ABG Interpretation ABG results: 09/07/24 14:37 ABG pH 7.44 ABG pCO2 46 ABG pO2 65 L ABG HCO3 31 H ABG O2 Saturation 93 ABG Base Excess 6 H Quality Measures Quality Measures VTE prophylaxis Advance care planning discussed with:: patient Assessment & Plan Assessment Current Active Medications: Generic Name Dose Route Start Last Admin Trade Name Freq PRN Reason Stop Dose Admin Acetaminophen 650 mg 09/07/24 18:37 Acetaminophen 325 Mg Tablet PO 10/07/24 18:36 Q6H PRN PAIN OR FEVER > 100.4 Albuterol/Ipratropium 3 ml 09/07/24 20:00 Albuterol/Ipratropium (Duoneb) Rt Lauren 3 Ml Nebu INH 10/07/24 19:59 Q2HR PRN SHORTNESS OF BREATH OR WHEEZE Amiodarone HCl 200 mg 09/08/24 19:00 09/11/24 20:53 Amiodarone Hcl 200 Mg Tablet PO 10/08/24 18:59 200 mg BID GHADA Administration Bisacodyl 10 mg 09/07/24 21:29 Bisacodyl 10 Mg Supp MS 10/07/24 21:28 QDAY PRN Constipation Protocol Collagenase 0 gm 09/11/24 21:00 09/11/24 20:55 Collagenase Oint 30 Gm Tube TOP 10/11/24 20:59 1 applicatio HS GHADA Administration Gabapentin 100 mg 09/07/24 22:00 09/12/24 05:30 Gabapentin 100 Mg Capsule PO 10/07/24 21:59 100 mg TID GHADA Administration Ceftriaxone Sodium/Dextrose 1 gm in 50 mls @ 100 mls/hr 09/07/24 18:43 09/11/24 20:49 Rocephin/D5w 1gm Iv Premix IV 09/14/24 18:42 100 mls/hr Q12HR GHADA Administration Doxycycline Hyclate 100 mg/ 100 mls @ 100 mls/hr 09/08/24 09:00 09/11/24 21:54 Sodium Chloride IV 09/15/24 08:59 Infused BID GHADA Infusion Magnesium Hydroxide 30 ml 09/07/24 21:29 Milk Of Magnesia Susp 30 Ml Udc PO 10/07/24 21:28 QDAY PRN CONSTIPATION Protocol Metoclopramide HCl 10 mg 09/07/24 18:37 09/11/24 04:17 Metoclopramide Inj 5 Mg/Ml Vial 2 Ml IVP 10/07/24 18:36 10 mg Q6H PRN Administration NAUSEA OR VOMITING Protocol Morphine Sulfate 15 mg 09/07/24 21:45 09/11/24 20:54 Morphine Sulf 15 Mg Tabcr PO 09/12/24 21:44 15 mg Q12H GHADA Administration Protocol Pantoprazole Sodium 40 mg 09/08/24 09:00 09/11/24 10:49 Pantoprazole Inj 40 Mg Vial IVP 10/08/24 08:59 40 mg QDAY GHADA Administration Rivaroxaban 20 mg 09/08/24 21:00 09/11/24 20:53 Rivaroxaban 10 Mg Tablet PO 10/08/24 20:59 20 mg HS GHADA Administration Plan 74-year-old female with a past medical history of HFpEF with an EF of 60 to 65%, paroxysmal atrial fibrillation on anticoagulation, essential hypertension, recent admission with enlarged CBD status post ERCP in July 2024, obesity, hypothyroidism presented to the emergency department for further evaluation of hypoxia with questionable aspiration PNA. # Atrial fibrillation with RVR ---> CVR # Wide-complex tachycardia - self-limited # HFpEF with an EF of 60 to 65% - Patient presented to hospital with aspiration pneumonia. Primary team did start the patient on antibiotics. - Patient had history of atrial fibrillation with rapid ventricular rate and is on carvedilol 3.125 Mg twice daily, amiodarone 200 Mg twice daily, rivaroxaban 20 Mg p.o. at bedtime - Regarding the episode of tachycardia at 110 bpm unlikely VT but could be NSVT. Reviewed the previous EKGs and patient probably has rate related incomplete bundle branch block which could also be the differential. - Initially started on amiodarone bolus as well as drip and later changed to oral medication - Atrial fibrillation with RVR episode mostly secondary to SAPPHIRE and severe dehydration in the setting of possible aspiration pneumonia and poor oral intake. - Echo on 07/2024- normal-sized left ventricle with normal left wall thickness wall motion ejection fraction of approximately 60%. Mildly dilated left atrium. Plan - Patient does not appear to be in heart failure as of now. - Recommended to continue amiodarone 200 Mg p.o. twice daily for now and rivaroxaban 20 Mg p.o. at bedtime - Held carvedilol and spironolactone for now in view of low blood pressures, if patient is hemodynamically stable can restart medications - Keep potassium greater than 4 and magnesium greater than 2 #Acute on chronic hypoxic respiratory failure secondary to possible aspiration event #Right lower lobe pneumonia #Lactic acidosis #Biliary stricture s/p ERCP and stent placement #Transaminitis #Hyperbilirubinemia #Chronic pain #COPD on 2 L home O2 Management of rest of the medical conditions as per primary team and other consultants. Thank you for the consult and allowing me to participate in the care of the patient. Cardiology will continue to follow. Patient plan of care was discussed with [employer] Dr. Nam Ashley, PGY2 Attending Provider Attestation/Addendum I have personally seen and examined the patient separately on the above date of service and discussed the plan of care with the resident. I reviewed the resident Dr. Ashley consultation progress note and agree with the resident findings and plan in the note above and have also edited the documentation to reflect my findings and plan. Tico Doll M.D. Interventional Cardiology
--- NOTE | 2024-09-11 14:45 | PC.SS ---
SS follow up note; SS has attempted to contact patient's son, Santana to inform him that patient will be returning back to [place]. SS left Voicemail with call back number.
--- NOTE | 2024-09-11 15:12 | PC.SS ---
Addendum entered by Dorita Ramirez 09/11/24 16:31: SS follow up note; [facility] transportation at bedside, Patient's friend was at bedside and informed SS that patient's son did not want patient to return back to [place]. SS contacted Ebonie and she informed SS that she had contacted patient's son, Santana and he was requesting to Speak to Ebonie in regards to the care his mother has been receiving. Ebonie requesting to have patient discharge tomorrow. will follow up with Ebonie tomorrow morning. Original Note: SS follow up note; SS met with patient at bedside and informed her that she was discharging back to [place]. SS also contacted Ebonie from [place] and she is agreeable to have patient discharge back to facility. SS set up transportation with [facility], Reference # [id number].
--- NOTE | 2024-09-11 15:37 | PD.RESPRO ---
Documentation for date of: 09/11/24 Exam Vital Signs Temp Pulse Resp BP Pulse Ox O2 Del Method O2 Flow Rate 98.7 F 109 H 20 108/67 95 Nasal Cannula 3 09/11/24 12:00 09/11/24 12:00 09/11/24 12:00 09/11/24 12:00 09/11/24 12:00 09/11/24 12:00 09/11/24 12:00 Objective Labs 09/11/24 05:55 09/11/24 05:55 Labs: Laboratory Results - last 24 hr 09/11/24 05:55 WBC 30.6 H RBC 3.70 L Hgb 11.7 L Hct 35.6 L MCV 96 MCH 31.6 MCHC 32.9 RDW Std Deviation 71.7 H Plt Count 363 Neut % (Auto) 82 H Lymph % (Auto) 4 L [place] % (Auto) 12 Eos % (Auto) 1 Baso % (Auto) 0 Neut # (Auto) 25.1 H Lymph # (Auto) 1.4 [place] # (Auto) 3.6 H Eos # (Auto) 0.2 Baso # (Auto) 0.1 Immature Gran # (Auto) 0.36 H Absolute Nucleated RBC 0.00 Immature Gran % 1 H Nucleated RBC % 0 Sodium 134 L Potassium 4.2 Chloride 102 Carbon Dioxide 27.2 Anion Gap 5 L BUN 19 Creatinine 0.7 Estim Creat Clear Calc 76.9 eGFR > 60 BUN/Creatinine Ratio 27 H Glucose 80 Calculated Osmolality 269 L Calcium 8.4 Corrected Calcium 9.8 Phosphorus 2.3 L Magnesium 1.8 Total Bilirubin 1.8 H AST 148 H ALT 86 H Alkaline Phosphatase 328 H D Total Protein 6.3 Albumin 2.3 L Globulin 4.0 H Albumin/Globulin Ratio 0.6 L ABG Interpretation ABG results: 09/07/24 14:37 ABG pH 7.44 ABG pCO2 46 ABG pO2 65 L ABG HCO3 31 H ABG O2 Saturation 93 ABG Base Excess 6 H Quality Measures Quality Measures none Assessment & Plan Assessment Current Active Medications: Generic Name Dose Route Start Last Admin Trade Name Freq PRN Reason Stop Dose Admin Acetaminophen 650 mg 09/07/24 18:37 Acetaminophen 325 Mg Tablet PO 10/07/24 18:36 Q6H PRN PAIN OR FEVER > 100.4 Albuterol/Ipratropium 3 ml 09/07/24 20:00 Albuterol/Ipratropium (Duoneb) Rt Lauren 3 Ml Nebu INH 10/07/24 19:59 Q2HR PRN SHORTNESS OF BREATH OR WHEEZE Amiodarone HCl 200 mg 09/08/24 19:00 09/11/24 10:48 Amiodarone Hcl 200 Mg Tablet PO 10/08/24 18:59 200 mg BID GHADA Administration Bisacodyl 10 mg 09/07/24 21:29 Bisacodyl 10 Mg Supp IN 10/07/24 21:28 QDAY PRN Constipation Protocol Gabapentin 100 mg 09/07/24 22:00 09/11/24 13:52 Gabapentin 100 Mg Capsule PO 10/07/24 21:59 100 mg TID GHADA Administration Ceftriaxone Sodium/Dextrose 1 gm in 50 mls @ 100 mls/hr 09/07/24 18:43 09/11/24 10:49 Rocephin/D5w 1gm Iv Premix IV 09/14/24 18:42 100 mls/hr Q12HR GHADA Administration Doxycycline Hyclate 100 mg/ 100 mls @ 100 mls/hr 09/08/24 09:00 09/11/24 10:49 Sodium Chloride IV 09/15/24 08:59 100 mls/hr BID GHADA Administration Magnesium Hydroxide 30 ml 09/07/24 21:29 Milk Of Magnesia Susp 30 Ml Udc PO 10/07/24 21:28 QDAY PRN CONSTIPATION Protocol Metoclopramide HCl 10 mg 09/07/24 18:37 09/11/24 04:17 Metoclopramide Inj 5 Mg/Ml Vial 2 Ml IVP 10/07/24 18:36 10 mg Q6H PRN Administration NAUSEA OR VOMITING Protocol Morphine Sulfate 15 mg 09/07/24 21:45 09/11/24 10:48 Morphine Sulf 15 Mg Tabcr PO 09/12/24 21:44 15 mg Q12H GHADA Administration Protocol Pantoprazole Sodium 40 mg 09/08/24 09:00 09/11/24 10:49 Pantoprazole Inj 40 Mg Vial IVP 10/08/24 08:59 40 mg QDAY GHADA Administration Rivaroxaban 20 mg 09/08/24 21:00 09/10/24 21:07 Rivaroxaban 10 Mg Tablet PO 10/08/24 20:59 20 mg HS GHADA Administration Plan Ashlie Burciaga is a 74-year-old female with a history of enlarged CBD s/p ERCP on 07/2024, COPD on 2 L home O2, HFpEF (60% on 07/2024), a-fib on Xarelto, hypertension, and chronic pain on home morphine who is admitted for AHRF secondary to pneumonia secondary to possible aspiration event, currently hospitalized due to fatigue and feeling weak. #Acute on chronic hypoxic respiratory failure secondary to possible aspiration event #Right lower lobe pneumonia #Lactic acidosis, improving #fatigue, improving Patient was in normal state of health prior to admission and per son she had an episode of emesis when eating. Given acuity of patient's presentation and CXR findings, etiology may be due to aspiration. However, at bedside in ED vital monitor showed what appeared to be VT/VF and thus will refrain from QTc prolonging agents (i.e. doxycycline, metronidazole). In ED, she was saturating in mid-90s on 15 L oxymask. At baseline, she utilizes 2 L oxygen mostly when sleeping and longstanding history of smoking and likely has COPD for which can keep O2 titrated between 88-92%. 09/10/2024: Oxygen saturation at 94% on 4L NC. ? Ceftriaxone and doxycycline (09/07-) ? Blood cultures 09/07: NGTD ? Sputum cultures ordered, not obtained ? Supplemental oxygen as needed ? Keep oxygen titrated between 88 and 92% - Physical Therapy ordered, planning on home health. #Atrial fibrillation on Xarelto #Rate-related BBB In ED campaign consultant revealed wide QRS complexes with heart rate above 100 bpm and concern for nonsustained VT. Cardiology evaluated patient and stated that patient likely has a rate-related BBB due to underlying conditions such as infection and/or dehydration. QRS complexes have similar morphology, however during VT they tend to have more uniform and narrower QRS complexes in comparison to BBB with a typical shape that is different from baseline. VT typically has a higher heart rate above 150 and is sustained or paroxysmal. At baseline, rhythm is a-fib and appearance of BBB on top of that may confuse the diagnosis with VT. ? Per cardiology recs, continue PO amiodarone 200 mg BID ? Continue treating underlying cause ? Close monitoring of hemodynamics ? Xarelto 20 mg p.o. at bedtime ? Will continue holding Coreg given that MAP was 67 in ED. Will continue if BP permits. #HFpEF (60% on 07/2024) Follows Dr. Browning outpatient. Does not appear to be fluid overload on exam, no vascular congestion on CXR, and CBC shows what appears to be hemoconcentration given elevated WBC, hemoglobin, and platelets though may be reactive thrombocytosis. Additionally, presents with SAPPHIRE given previous creatinine of 0.7 and now presents with creatinine of 1.0 with BUN/creatinine ratio > 20. Thus, patient likely overall dehydrated and will hold diuretics at this time. 300 cc NS bolus, can give additional IVF if indicated. ? Cardiology following as above ? NS at 100 cc/hr ? Hold diuretics, can resume as needed ? 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 After procedure, she continued to have elevated T. bili and transaminitis and again presents with relatively similar values. ? Follow-up GI outpatient ? Will need repeat ERCP with spyglass to examine CBD with possible biopsy #Chronic pain ? Gabapentin 100 mg p.o. three times daily ? Morphine ER 15 mg twice per day #COPD on 2 L home O2 Does not have any inhalers at home per son. ? Duonebs as needed #Chronic Leukocytosis, reactive vs inflammatory vs infective process Patient has a history of reactive and infectious etiologies for leukocytosis on previous admissions. WBC have been elevated >20 this admission, consistent with previous admissions. Peripheral smear done 07/2024 reported reactive leukocytosis with no morphological abnormality identified. - Will order peripheral smear pathology to recheck for any changes, given history noted above. Hospital management: Disposition: IV antibiotics, blood cultures NGTD, cardiology following Diet: low sodium diet, disphagia 1 diet, pending formal speech/swallow eval Lines: PIV DVT prophylaxis: xarelto GI prophylaxis: pantoprazole CODE STATUS: DNR/DNI ----- Plan discussed with attending physician Dr. Shira Murdock MD PGY-1 Internal Medicine
--- NOTE | 2024-09-11 15:46 | PD.RESDS ---
Planned Discharge Date 09/11/24 DS: Providers Provider Date of admission: 09/07/24 18:37 Primary care physician: Domenic Mcmahan MD Admitting Provider: Nirav Mederos MD Attending Provider on Admission: Forest Silva MD Consults: 09/07/24 20:54 Consult to Cardiology Routine Comment: Consulting Provider: Tico Dlol 09/08/24 02:46 Referral Wound Care Routine Comment: 09/08/24 08:01 Referral Speech Therapy Routine Comment: swallow eval 09/08/24 10:35 Referral Nutritional Services Routine Comment: failure to thrive Attending Provider on DC: RESIDENT Kyra Discharging Provider: RESIDENT Kyra Hospital Course Hospital Course Hospital course: Nneka Burciaga is a 74-year-old female with a history of enlarged CBD s/p ERCP on 07/2024, COPD on 2 L home O2, HFpEF (60% on 07/2024), a-fib on Xarelto, hypertension, and chronic pain on home morphine who is admitted on 09/07/2024 for AHRF secondary to pneumonia secondary to possible aspiration event. She was then started on and was on ceftriaxone and doxycycline to #Acute on chronic hypoxic respiratory failure secondary to possible aspiration event #Right lower lobe pneumonia #Lactic acidosis, improving #fatigue, improving Patient was in normal state of health prior to admission and per son she had an episode of emesis when eating. Given acuity of patient's presentation and CXR findings, etiology may be due to aspiration. However, at bedside in ED vital monitor showed what appeared to be VT/VF and thus will refrain from QTc prolonging agents (i.e. doxycycline, metronidazole). In ED, she was saturating in mid-90s on 15 L oxymask. At baseline, she utilizes 2 L oxygen mostly when sleeping and longstanding history of smoking and likely has COPD for which can keep O2 titrated between 88-92%. 09/10/2024: Oxygen saturation at 94% on 4L NC. ? Ceftriaxone and doxycycline (09/07-) ? Blood cultures 09/07: NGTD ? Sputum cultures ordered, not obtained ? Supplemental oxygen as needed ? Keep oxygen titrated between 88 and 92% - Physical Therapy ordered, planning on home health. #Atrial fibrillation on Xarelto #Rate-related BBB In ED superintendent mechanical revealed wide QRS complexes with heart rate above 100 bpm and concern for nonsustained VT. Cardiology evaluated patient and stated that patient likely has a rate-related BBB due to underlying conditions such as infection and/or dehydration. QRS complexes have similar morphology, however during VT they tend to have more uniform and narrower QRS complexes in comparison to BBB with a typical shape that is different from baseline. VT typically has a higher heart rate above 150 and is sustained or paroxysmal. At baseline, rhythm is a-fib and appearance of BBB on top of that may confuse the diagnosis with VT. ? Per cardiology recs, continue PO amiodarone 200 mg BID ? Continue treating underlying cause ? Close monitoring of hemodynamics ? Xarelto 20 mg p.o. at bedtime ? Will continue holding Coreg given that MAP was 67 in ED. Will continue if BP permits. #HFpEF (60% on 07/2024) Follows Dr. Browning outpatient. Does not appear to be fluid overload on exam, no vascular congestion on CXR, and CBC shows what appears to be hemoconcentration given elevated WBC, hemoglobin, and platelets though may be reactive thrombocytosis. Additionally, presents with SAPPHIRE given previous creatinine of 0.7 and now presents with creatinine of 1.0 with BUN/creatinine ratio > 20. Thus, patient likely overall dehydrated and will hold diuretics at this time. 300 cc NS bolus, can give additional IVF if indicated. ? Cardiology following as above ? NS at 100 cc/hr ? Hold diuretics, can resume as needed ? 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 After procedure, she continued to have elevated T. bili and transaminitis and again presents with relatively similar values. ? Follow-up GI outpatient ? Will need repeat ERCP with spyglass to examine CBD with possible biopsy #Chronic pain ? Gabapentin 100 mg p.o. three times daily ? Morphine ER 15 mg twice per day #COPD on 2 L home O2 Does not have any inhalers at home per son. ? Duonebs as needed #Chronic Leukocytosis, reactive vs inflammatory vs infective process Patient has a history of reactive and infectious etiologies for leukocytosis on previous admissions. WBC have been elevated >20 this admission, consistent with previous admissions. Peripheral smear done 07/2024 reported reactive leukocytosis with no morphological abnormality identified. - Will order peripheral smear pathology to recheck for any changes, given history noted above. Hospital management: Disposition: IV antibiotics, blood cultures NGTD, cardiology following Diet: low sodium diet, disphagia 1 diet, pending formal speech/swallow eval Lines: PIV DVT prophylaxis: xarelto GI prophylaxis: pantoprazole CODE STATUS: DNR/DNI Please follow up with fixture maker Dr. Browning in 2 weeks Continue taking all other home medications as prescribed Follow-up with PCP within 7-10 days of discharge Return to ED if symptoms worsen or recur Time Spent with Patient Time attestation: Total time spent providing and/or coordinating discharge services: Exam Vital Signs Temp Pulse Resp BP Pulse Ox O2 Del Method O2 Flow Rate 98.7 F 109 H 20 108/67 95 Nasal Cannula 3 09/11/24 12:00 09/11/24 12:00 09/11/24 12:00 09/11/24 12:00 09/11/24 12:00 09/11/24 12:00 09/11/24 12:00 Discharge Plan Plan Patient Disposition: [facility]fer [facility] ([facility]) Patient condition on transfer: Stable Care Plan Goals: You have been started on the following medications: - The following medications have been STOPPED: - Please follow up with fixture maker Dr. Browning in 2 weeks Continue taking all other home medications as prescribed Follow-up with PCP within 7-10 days of discharge Return to ED if symptoms worsen or recur Prescriptions/Referrals Prescriptions/Med Rec: Continued amiodarone 200 mg Tablet 200 mg PO BID potassium chloride 10 mEq Capsule, Extended Release 10 meq PO BID gabapentin 100 mg capsule 100 mg PO TID duloxetine 60 mg capsule,delayed release(DR/EC) 60 mg PO BID Patient Comments: TAKE ONE CAPSULE BY MOUTH EVERY DAY buspirone 15 mg tablet 15 mg PO TID PRN (Reason: Anxiety) Patient Comments: TAKE ONE TABLET BY MOUTH THREE TIMES DAILY NEEDED FOR ANXIETY Xarelto 20 mg tablet 20 mg PO HS Patient Comments: TAKE ONE TABLET BY MOUTH EVERY EVENING WITH FOOD carvedilol 3.125 mg tablet 3.125 mg PO BIDAC Patient Comments: TAKE ONE TABLET BY MOUTH WITH FOOD TWICE DAILY FOR BLOOD PRESSURE morphine 30 mg tablet extended release 15 mg PO Q12H MDD 90 mg 30 Days Qty: 30 0RF Rx Instructions: 15 mg orally; Discontinued furosemide 40 mg Tablet See Rx Instructions .ROUTE .COMPLEX Rx Instructions: TAKE ONE TABLET BY MOUTH AT ten IN THE MORNING AND TAKE ONE TABLET BY MOUTH AT FOUR IN THE AFTERNOON No Action spironolactone 25 mg tablet 25 mg PO QDAY Referrals: Domenic Mcmahan MD [Primary Care Provider] - Jason Browning MD [Physician] - Patient/Caregiver Discharge Instructions Print Language: Sinhala Stand Alone Forms: Deborah Award Info., Patient Portal Info Letter Discharge Order Discharge Orders: Discharge (Routine); Ordered 09/11/24 Ordered By: Danyel Marie
--- NOTE | 2024-09-11 16:42 | ESPR_ITS ---
<Statement entered by Forest Silva MD - 09/13/24 09:33> I have discussed and was present for the essential components of the history, physical examination, diagnosis, and treatment plan with the resident. I agree with the patient's care as documented by the resident and amended herein by me. Forest Silva MD FACP. Documentation for date of: 09/11/24 Subjective Subjective Interval history: No acute events overnight. Patient states she is still feeling a little weak. She denies any fever, headache, chest pain, shortness of breath, or abdominal pain. Exam Vital Signs Temp Pulse Resp BP Pulse Ox O2 Del Method O2 Flow Rate 98.7 F 109 H 20 108/67 95 Nasal Cannula 3 09/11/24 12:00 09/11/24 12:00 09/11/24 12:00 09/11/24 12:00 09/11/24 12:00 09/11/24 12:09/11/24 12:00 Narrative Exam General: Alert and oriented x3. In no acute distress. Cardiovascular: Normal S1 and S2. Irregularly irregular, tachycardic, 2 out of 6 systolic murmur at the apex, no peripheral pitting edema noted. Respiratory: No respiratory distress. Bilateral wheezing of the lungs. Abdomen: Soft, nontender, nondistended. Skin: No rash. Warm to touch. Musculoskeletal: No gross injuries. Able to move all 4 extremities. Neuro: Alert and oriented x3. No focal neuro deficits. Psych: Normal affect and mood Objective Labs 09/11/24 05:55 09/11/24 05:55 Labs: Laboratory Results - last 24 hr 09/11/24 05:55 WBC 30.6 H RBC 3.70 L Hgb 11.7 L Hct 35.6 L MCV 96 MCH 31.6 MCHC 32.9 RDW Std Deviation 71.7 H Plt Count 363 Neut % (Auto) 82 H Lymph % (Auto) 4 L [place] % (Auto) 12 Eos % (Auto) 1 Baso % (Auto) 0 Neut # (Auto) 25.1 H Lymph # (Auto) 1.4 [place] # (Auto) 3.6 H Eos # (Auto) 0.2 Baso # (Auto) 0.1 Immature Gran # (Auto) 0.36 H Absolute Nucleated RBC 0.00 Immature Gran % 1 H Nucleated RBC % 0 Sodium 134 L Potassium 4.2 Chloride 102 Carbon Dioxide 27.2 Anion Gap 5 L BUN 19 Creatinine 0.7 Estim Creat Clear Calc 76.9 eGFR > 60 BUN/Creatinine Ratio 27 H Glucose 80 Calculated Osmolality 269 L Calcium 8.4 Corrected Calcium 9.8 Phosphorus 2.3 L Magnesium 1.8 Total Bilirubin 1.8 H AST 148 H ALT 86 H Alkaline Phosphatase 328 H D Total Protein 6.3 Albumin 2.3 L Globulin 4.0 H Albumin/Globulin Ratio 0.6 L ABG Interpretation ABG results: 09/07/24 14:37 ABG pH 7.44 ABG pCO2 46 ABG pO2 65 L ABG HCO3 31 H ABG O2 Saturation 93 ABG Base Excess 6 H Quality Measures Quality Measures VTE prophylaxis Advance care planning discussed with:: patient Assessment & Plan Assessment Current Active Medications: Generic Name Dose Route Start Last Admin Trade Name Freq PRN Reason Stop Dose Admin Acetaminophen 650 mg 09/07/24 18:37 Acetaminophen 325 Mg Tablet PO 10/07/24 18:36 Q6H PRN PAIN OR FEVER > 100.4 Albuterol/Ipratropium 3 ml 09/07/24 20:00 Albuterol/Ipratropium (Duoneb) Rt Lauren 3 Ml Nebu INH 10/07/24 19:59 Q2HR PRN SHORTNESS OF BREATH OR WHEEZE Amiodarone HCl 200 mg 09/08/24 19:00 09/11/24 10:48 Amiodarone Hcl 200 Mg Tablet PO 10/08/24 18:59 200 mg BID GHADA Administration Bisacodyl 10 mg 09/07/24 21:29 Bisacodyl 10 Mg Supp OR 10/07/24 21:28 QDAY PRN Constipation Protocol Collagenase 0 gm 09/11/24 21:00 Collagenase Oint 30 Gm Tube TOP 10/11/24 20:59 HS GHADA Gabapentin 100 mg 09/07/24 22:00 09/11/24 13:52 Gabapentin 100 Mg Capsule PO 10/07/24 21:59 100 mg TID GHADA Administration Ceftriaxone Sodium/Dextrose 1 gm in 50 mls @ 100 mls/hr 09/07/24 18:43 09/11/24 10:49 Rocephin/D5w 1gm Iv Premix IV 09/14/24 18:42 100 mls/hr Q12HR GHADA Administration Doxycycline Hyclate 100 mg/ 100 mls @ 100 mls/hr 09/08/24 09:00 09/11/24 10:49 Sodium Chloride IV 09/15/24 08:59 100 mls/hr BID GHADA Administration Magnesium Hydroxide 30 ml 09/07/24 21:29 Milk Of Magnesia Susp 30 Ml Udc PO 10/07/24 21:28 QDAY PRN CONSTIPATION Protocol Metoclopramide HCl 10 mg 09/07/24 18:37 09/11/24 04:17 Metoclopramide Inj 5 Mg/Ml Vial 2 Ml IVP 10/07/24 18:36 10 mg Q6H PRN Administration NAUSEA OR VOMITING Protocol Morphine Sulfate 15 mg 09/07/24 21:45 09/11/24 10:48 Morphine Sulf 15 Mg Tabcr PO 09/12/24 21:44 15 mg Q12H GHADA Administration Protocol Pantoprazole Sodium 40 mg 09/08/24 09:00 09/11/24 10:49 Pantoprazole Inj 40 Mg Vial IVP 10/08/24 08:59 40 mg QDAY GHADA Administration Rivaroxaban 20 mg 09/08/24 21:00 09/10/24 21:07 Rivaroxaban 10 Mg Tablet PO 10/08/24 20:59 20 mg HS GHADA Administration Plan Nneka Burciaga is a 74-year-old female with a history of enlarged CBD s/p ERCP on 07/2024, COPD on 2 L home O2, HFpEF (60% on 07/2024), a-fib on Xarelto, hypertension, and chronic pain on home morphine who is admitted for AHRF secondary to pneumonia secondary to possible aspiration event, currently hospitalized due to fatigue and feeling weak. #Acute on chronic hypoxic respiratory failure secondary to possible aspiration event #Right lower lobe pneumonia #Lactic acidosis, improving #fatigue, improving Patient was in normal state of health prior to admission and per son she had an episode of emesis when eating. Given acuity of patient's presentation and CXR findings, etiology may be due to aspiration. However, at bedside in ED vital monitor showed what appeared to be VT/VF and thus will refrain from QTc prolonging agents (i.e. doxycycline, metronidazole). In ED, she was saturating in mid-90s on 15 L oxymask. At baseline, she utilizes 2 L oxygen mostly when sleeping and longstanding history of smoking and likely has COPD for which can keep O2 titrated between 88-92%. 09/10/2024: Oxygen saturation at 94% on 4L NC. ? Ceftriaxone and doxycycline (09/07-) ? Blood cultures 09/07: NGTD ? Sputum cultures ordered, not obtained ? Supplemental oxygen as needed ? Keep oxygen titrated between 88 and 92% - Physical Therapy not needed for insurance auth in this situation. Patient is returning to SNF. PT eval cancelled. #Atrial fibrillation on Xarelto #Rate-related BBB In ED cardiac exercise physiologist revealed wide QRS complexes with heart rate above 100 bpm and concern for nonsustained VT. Cardiology evaluated patient and stated that patient likely has a rate-related BBB due to underlying conditions such as infection and/or dehydration. QRS complexes have similar morphology, however during VT they tend to have more uniform and narrower QRS complexes in comparison to BBB with a typical shape that is different from baseline. VT typically has a higher heart rate above 150 and is sustained or paroxysmal. At baseline, rhythm is a-fib and appearance of BBB on top of that may confuse the diagnosis with VT. ? Per cardiology recs, continue PO amiodarone 200 mg BID ? Continue treating underlying cause ? Close monitoring of hemodynamics ? Xarelto 20 mg p.o. at bedtime ? Will continue holding Coreg given that MAP was 67 in ED. Will continue if BP permits. #HFpEF (60% on 07/2024) Follows Dr. Browning outpatient. Does not appear to be fluid overload on exam, no vascular congestion on CXR, and CBC shows what appears to be hemoconcentration given elevated WBC, hemoglobin, and platelets though may be reactive thrombocytosis. Additionally, presents with SAPPHIRE given previous creatinine of 0.7 and now presents with creatinine of 1.0 with BUN/creatinine ratio > 20. Thus, patient likely overall dehydrated and will hold diuretics at this time. 300 cc NS bolus, can give additional IVF if indicated. ? Cardiology following as above ? NS at 100 cc/hr ? Hold diuretics, can resume as needed ? 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 After procedure, she continued to have elevated T. bili and transaminitis and again presents with relatively similar values. ? Follow-up GI outpatient ? Will need repeat ERCP with spyglass to examine CBD with possible biopsy #Chronic pain ? Gabapentin 100 mg p.o. three times daily ? Morphine ER 15 mg twice per day #COPD on 2 L home O2 Does not have any inhalers at home per son. ? Duonebs as needed #Chronic Leukocytosis, reactive vs inflammatory vs infective process Patient has a history of reactive and infectious etiologies for leukocytosis on previous admissions. WBC have been elevated >20 this admission, consistent with previous admissions. Peripheral smear done 07/2024 reported reactive leukocytosis with no morphological abnormality identified. - Peripheral smear pathology rechecked 09/07/2024 showing similar findings as month before of reactive leukocytosis with no morphological abnormality identified with Mild normocytic anemia without hemolysis. Hospital management: Disposition: IV antibiotics, blood cultures NGTD, cardiology following Diet: low sodium diet, dysphagia 2 diet Lines: PIV DVT prophylaxis: xarelto GI prophylaxis: pantoprazole CODE STATUS: DNR/DNI Plan Discussed with Dr. Shira Murdock MD PGY-1 Internal Medicine Patient seen and examined at bedside, no acute overnight events. I discussed and supervised with the compensation intern physician who took care of this patient. I personally saw and examined the patient. I agree with most of the assessment and plan. Following cardiac recommendations for discharge medications. Patient overall felling well. Probable DC tomorrow with antibiotics. Plan of care discussed with attending Dr. Silva. Danyel Marie MD PGY-2
[2024-09-11] MEDS: RIVAROXABAN 10 MG TABLET 20 MG PO (20:53)
[2024-09-11] MEDS: COLLAGENASE OINT 30 GM TUBE TOP (20:55)
[2024-09-12] VITALS (9 sets, daily range): BP systolic 92–114; BP diastolic 60–88; PULSE 62–123; RESP 19–23; TEMP 35.9–36.8; O2SAT 91–96; BMI 36.1
[2024-09-12] MEDS: GABAPENTIN 100 MG CAPSULE PO ×3 (05:30→21:57)
[2024-09-12 05:54] LABS: Basophils # (Auto) 0.1 Thou/mm3 (0.0-0.2); Basophils % (Auto) 0 % (0-2.5); Eosinophils # (Auto) 0.1 Thou/mm3 (0.0-0.5); Eosinophils % (Auto) 0 % (0-10); Hematocrit 33.1 % (36.0-46.0); Hemoglobin 11.2 g/dL (12.0-16.0); Immature Granulocytes Auto 0.32 Thou/mm3 (0.00-0.00); Lymphocytes # (Auto) 1.6 Thou/mm3 (1.0-4.8); Lymphocytes % (Auto) 4 % (10-50); Mean Corpuscular HGB Conc 33.8 g/dl (31.0-37.0); Mean Corpuscular Hemoglobin 31.0 pg (25.0-35.0); Mean Corpuscular Volume 92 fL (80-100); Monocytes # (Auto) 3.9 Thou/mm3 (0.0-0.8); Monocytes % (Auto) 11 % (0-12); Neutrophils # (Auto) 29.2 Thou/mm3 (1.8-7.7); Neutrophils % (Auto) 83 % (37-80); Nucleated Red Blood Cell # 0.00 Thou/mm3 (0.00-0.00); Nucleated Red Blood Cell % 0 /100 WBC (0); Platelet Count 261 Thou/mm3 (140-440); RDW Standard Deviation 67.2 fL (36.4-46.3); Red Blood Count 3.61 Miln/mm3 (4.00-5.20)
[2024-09-12 05:59] LABS: White Blood Count 35.2 Thou/mm3 (3.6-11.0)
[2024-09-12 06:25] LABS: Alanine Aminotransferase 85 U/L (10-49); Albumin, Serum 2.1 gm/dL (3.4-4.8); Albumin/Globulin Ratio 0.5 (1.2-2.2); Alkaline Phosphatase 319 U/L (46-116); Anion Gap 6 (7-16); Aspartate Amino Transferase 141 U/L (0-34); BUN/Creatinine Ratio 28 Ratio (12-20); Bilirubin,Total 2.0 mg/dL (0.3-1.2); Blood Urea Nitrogen 17 mg/dL (9-23); Calcium 8.1 mg/dL (8.3-10.6); Calcium (Corrected) 9.6 mg/dL (8.5-10.1); Carbon Dioxide 24.0 mMol/L (20.0-31.0); Chloride 102 mMol/L (98-107); Creatinine (Component) 0.6 mg/dL (0.6-1.3); Estimated Creatinine Clearance 89.8 mL/min (>60); Globulin 3.9 gm/dL (2.3-3.5); Glucose 76 mg/dL (74-106); Magnesium 1.8 mg/dL (1.6-2.6); Osmolality,Calculated 265 (275-295); Phosphorous 2.8 mg/dL (2.4-5.1); Potassium 4.3 mMol/L (3.4-5.1); Sodium 132 mMol/L (136-145); Total Protein 6.0 gm/dL (5.7-8.2); eGFR > 60 See Note
--- NOTE | 2024-09-12 09:24 | XR_ITS ---
Examination: Duplex scan of the upper extremity, unilateral right Date and time of exam: September 12, 2024 1304 hours INDICATIONS: Right arm redness swelling and pain today Technique: Duplex scan of the extremity veins using B-mode/grayscale imaging and Doppler spectral analysis and color flow Attention is directed to internal echogenicity, compression and augmentation involving these veins, color flow assessment, spectral analysis Findings: Major deep venous structures in the extremity demonstrate normal course and caliber. There is no evidence of deep vein thrombosis. Normal color flow and spectral analysis Impression: Negative for DVT..
--- NOTE | 2024-09-12 09:35 | XR_ITS ---
Examination: Abdomen AP single view Technique: AP portable supine abdomen, single view Exam date and time: September 12, 2024 0955 hours INDICATIONS: Abdominal pain beginning 2 days ago. FINDINGS: Moderate air and stool throughout the colon. No obstruction. No free air. Bibasilar atelectasis IMPRESSION: Nonobstructive bowel gas pattern
[2024-09-12] MEDS: Morphine Sulf 15 MG TABCR PO ×2 (09:42→23:55)
[2024-09-12] MEDS: AMIODARONE HCL 200 MG TABLET PO ×2 (09:42→21:56)
[2024-09-12] MEDS: DOXYCYCLINE INJ 100 MG in SODIUM CHLORIDE 0.9% (POP) 100 ML IV ×2 (09:43→21:57)
[2024-09-12] MEDS: cefTRIAXone/D5w 1gm IV premix 1 GM/50 ML BAG IV ×2 (09:43→21:56)
[2024-09-12] MEDS: BENZONATATE 100 MG CAPSULE 200 MG PO (09:56)
[2024-09-12] MEDS: SODIUM CHLORIDE 0.9% 500 ML 500 ML 999 ML IV (09:56)
[2024-09-12] MEDS: LIDOCAINE 5% 1 PATCH TOP (09:58)
--- NOTE | 2024-09-12 10:24 | XR_ITS ---
Examination: AP chest single view Technique one AP portable semiupright chest single view Date and time: September 12, 2024 1108 hours Comparison August 30, 2024 INDICATIONS: Abnormal auscultation breast sounds today. FINDINGS: Bibasilar pneumonia. Mild enlargement cardiac contour Moderate ectasia thoracic aorta Prominent osteopenia IMPRESSION: Significant bilateral pneumonia
--- NOTE | 2024-09-12 10:40 | PC.SS ---
Addendum entered by Dorita Ramirez 09/12/24 11:33: SS follow up note; SS contacted patient's nurse, Benito and he informed SS that patient's white blood counts were elevated and therefore patient will not be discharging today. SS contacted [facility] and cancelled transportation. SS also attempted to contact patient's son Randy and updated him. SS will stand by for further needs. Original Note: SS follow up note; SS contacted patient's son Santana to inform him that [facility] had accepted patient. Santana informed SS that he would like patient to discharge to [facility]. SS contacted Marian from [facility] and informed her if patient is able to discharge to [facility] today. Marian reported patient is able to discharge today. SS set up transportation with [facility], Reference # [id number].
--- NOTE | 2024-09-12 16:05 | ESPR_ITS ---
<Statement entered by Jason Browning MD - 09/14/24 18:36> I personally evaluated patient examined along with PGY 2 Dr. Christian Ashley agree with the treatment plan recommendation as documented we will continue to follow the patient closely Documentation for date of: 09/12/24 Subjective Subjective Interval history: Patient is seen and examined at bedside No acute overnight events. Denies any other complaints Vitals are stable and patient is still in atrial fibrillation with controlled ventricular rate, around 100 to 110 bpm On physical examination, noted bronchial breath sounds on right lung Labs showed uptrending leukocytosis - Patient does not appear to be in heart failure as of now. - Recommended to continue amiodarone 200 Mg p.o. twice daily for now and rivaroxaban 20 Mg p.o. at bedtime - Held carvedilol and spironolactone for now in view of low blood pressures, if patient is hemodynamically stable can restart medications - Keep potassium greater than 4 and magnesium greater than 2 Exam Vital Signs Temp Pulse Resp BP Pulse Ox O2 Del Method O2 Flow Rate 96.6 F L 62 21 H 97/64 95 Nasal Cannula 4 09/12/24 12:00 09/12/24 12:00 09/12/24 12:00 09/12/24 12:00 09/12/24 12:00 09/12/24 12:00 09/12/24 12:00 Narrative Exam General: Awake. HEENT: Normocephalic, atraumatic, mucous membranes moist. Heart: Regular rate and rhythm, no murmurs. Lungs: Bilateral diffuse wheeze heard, bronchial breath sounds heard in right lung Abdomen: Soft, nondistended, nontender, positive bowel sounds. ?No guarding or rebound tenderness. Neurologic: Alert and oriented x3, no gross neurological deficit, and patient able to move all 4 extremities. Extremities: No edema. Skin: No rash or ecchymoses. Patient's abdominal with the patient Objective Labs 09/13/24 05:46 09/13/24 05:46 Labs: Laboratory Results - last 24 hr 09/12/24 05:23 WBC 35.2 H* RBC 3.61 L Hgb 11.2 L Hct 33.1 L MCV 92 MCH 31.0 MCHC 33.8 RDW Std Deviation 67.2 H Plt Count 261 D Neut % (Auto) 83 H Lymph % (Auto) 4 L [place] % (Auto) 11 Eos % (Auto) 0 Baso % (Auto) 0 Neut # (Auto) 29.2 H Lymph # (Auto) 1.6 [place] # (Auto) 3.9 H Eos # (Auto) 0.1 Baso # (Auto) 0.1 Immature Gran # (Auto) 0.32 H Absolute Nucleated RBC 0.00 Immature Gran % 1 H Nucleated RBC % 0 Smear Path Review Cancelled Sodium 132 L Potassium 4.3 Chloride 102 Carbon Dioxide 24.0 Anion Gap 6 L BUN 17 Creatinine 0.6 Estim Creat Clear Calc 89.8 eGFR > 60 BUN/Creatinine Ratio 28 H Glucose 76 Calculated Osmolality 265 L Calcium 8.1 L Corrected Calcium 9.6 Phosphorus 2.8 Magnesium 1.8 Total Bilirubin 2.0 H AST 141 H ALT 85 H Alkaline Phosphatase 319 H Total Protein 6.0 Albumin 2.1 L Globulin 3.9 H Albumin/Globulin Ratio 0.5 L ABG Interpretation ABG results: 09/07/24 14:37 ABG pH 7.44 ABG pCO2 46 ABG pO2 65 L ABG HCO3 31 H ABG O2 Saturation 93 ABG Base Excess 6 H Quality Measures Quality Measures VTE prophylaxis Advance care planning discussed with:: patient Assessment & Plan Assessment Current Active Medications: Generic Name Dose Route Start Last Admin Trade Name Freq PRN Reason Stop Dose Admin Acetaminophen 650 mg 09/07/24 18:37 Acetaminophen 325 Mg Tablet PO 10/07/24 18:36 Q6H PRN PAIN OR FEVER > 100.4 Albuterol/Ipratropium 3 ml 09/07/24 20:00 Albuterol/Ipratropium (Duoneb) Rt Lauren 3 Ml Nebu INH 10/07/24 19:59 Q2HR PRN SHORTNESS OF BREATH OR WHEEZE Amiodarone HCl 200 mg 09/08/24 19:00 09/12/24 09:42 Amiodarone Hcl 200 Mg Tablet PO 10/08/24 18:59 200 mg BID GHADA Administration Benzonatate 200 mg 09/12/24 09:27 Benzonatate 100 Mg Capsule PO 10/12/24 09:26 Q8HR PRN COUGH Protocol Bisacodyl 10 mg 09/07/24 21:29 Bisacodyl 10 Mg Supp [place] 10/07/24 21:28 QDAY PRN Constipation Protocol Collagenase 0 gm 09/11/24 21:00 09/11/24 20:55 Collagenase Oint 30 Gm Tube TOP 10/11/24 20:59 1 applicatio HS GHADA Administration Gabapentin 100 mg 09/07/24 22:00 09/12/24 13:31 Gabapentin 100 Mg Capsule PO 10/07/24 21:59 100 mg TID GHADA Administration Ceftriaxone Sodium/Dextrose 1 gm in 50 mls @ 100 mls/hr 09/07/24 18:43 09/12/24 09:43 Rocephin/D5w 1gm Iv Premix IV 09/14/24 18:42 100 mls/hr Q12HR GHADA Administration Doxycycline Hyclate 100 mg/ 100 mls @ 100 mls/hr 09/08/24 09:00 09/12/24 09:43 Sodium Chloride IV 09/15/24 08:59 100 mls/hr BID GHADA Administration Magnesium Hydroxide 30 ml 09/07/24 21:29 Milk Of Magnesia Susp 30 Ml Udc PO 10/07/24 21:28 QDAY PRN CONSTIPATION Protocol Metoclopramide HCl 10 mg 09/07/24 18:37 09/11/24 04:17 Metoclopramide Inj 5 Mg/Ml Vial 2 Ml IVP 10/07/24 18:36 10 mg Q6H PRN Administration NAUSEA OR VOMITING Protocol Morphine Sulfate 15 mg 09/07/24 21:45 09/12/24 09:42 Morphine Sulf 15 Mg Tabcr PO 09/12/24 21:44 15 mg Q12H GHADA Administration Protocol Pantoprazole Sodium 40 mg 09/08/24 09:00 09/12/24 09:43 Pantoprazole Inj 40 Mg Vial IVP 10/08/24 08:59 40 mg QDAY GHADA Administration Rivaroxaban 20 mg 09/08/24 21:00 09/11/24 20:53 Rivaroxaban 10 Mg Tablet PO 10/08/24 20:59 20 mg HS GHADA Administration Plan 74-year-old female with a past medical history of HFpEF with an EF of 60 to 65%, paroxysmal atrial fibrillation on anticoagulation, essential hypertension, recent admission with enlarged CBD status post ERCP in July 2024, obesity, hypothyroidism presented to the emergency department for further evaluation of hypoxia with questionable aspiration PNA. # Atrial fibrillation with RVR ---> CVR # Wide-complex tachycardia - self-limited # HFpEF with an EF of 60 to 65% - Patient presented to hospital with aspiration pneumonia. Primary team did start the patient on antibiotics. - Patient had history of atrial fibrillation with rapid ventricular rate and is on carvedilol 3.125 Mg twice daily, amiodarone 200 Mg twice daily, rivaroxaban 20 Mg p.o. at bedtime - Regarding the episode of wide complex tachycardia at 110 bpm unlikely VT but could be NSVT. Reviewed the previous EKGs and patient probably has rate related incomplete bundle branch block which could also be the differential. - Initially started on amiodarone bolus as well as drip and later changed to oral medication - Atrial fibrillation with RVR episode mostly secondary to SAPPHIRE and severe dehydration in the setting of possible aspiration pneumonia and poor oral intake. - Echo on 07/2024- normal-sized left ventricle with normal left wall thickness wall motion ejection fraction of approximately 60%. Mildly dilated left atrium. Plan - Patient does not appear to be in heart failure as of now. - Recommended to continue amiodarone 200 Mg p.o. twice daily for now and rivaroxaban 20 Mg p.o. 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 Thank you for the consult and allowing me to participate in the care of the patient. Cardiology will continue to follow. Patient plan of care was discussed with Animated Cart[employer] Painter Dr. Nam Ashley, PGY2
[2024-09-12 16:37] LABS: Procalcitonin 0.87 ng/ml (0.0-0.49)
--- NOTE | 2024-09-12 18:11 | ESPR_ITS ---
<Statement entered by Forest Silva MD - 09/15/24 15:01> I have discussed and was present for the essential components of the history, physical examination, diagnosis, and treatment plan with the resident. I agree with the patient's care as documented by the resident and amended herein by me. Forest Silva MD FACP. <Statement entered by Yassine Cardenas MD - 09/12/24 19:56> I discussed and supervised with the multicultural internship physician who took care of this patient. I personally saw and examined the patient. I agree with most of the assessment and plan. Disclaimer: Despite multiple revisions, due to the dictation software being used, the document bellow may not be free of grammatical errors including phonetic/typographic errors. However, this does not deter from our commitment to providing health care in the patient's best interest in mind. Plan of care discussed with attending Physician Dr. Shira Cardenas MD PGY-3 Documentation for date of: 09/12/24 Subjective Subjective Interval history: No acute events overnight. Patient states she is feeling weaker. Also endorses hearing the radio on when there is clearly nothing making noise in her room. She denies any fever, headache, chest pain, shortness of breath, or abdominal pain. Exam Vital Signs Temp Pulse Resp BP Pulse Ox O2 Del Method O2 Flow Rate 98.2 F 106 H 21 H 112/67 95 Nasal Cannula 4 09/12/24 16:00 09/12/24 16:00 09/12/24 16:00 09/12/24 16:00 09/12/24 16:00 09/12/24 16:09/12/24 16:00 Narrative Exam General: Alert and oriented x3. In no acute distress. Cardiovascular: Normal S1 and S2. Irregularly irregular, tachycardic, 2 out of 6 systolic murmur at the apex, no peripheral pitting edema noted. Respiratory: No respiratory distress. Bilateral wheezing of the lungs. Mild L upper rhonchi Abdomen: Soft, nontender, nondistended. Skin: No rash. Warm to touch. Musculoskeletal: RUE 4+ pitting edema. Able to move all 4 extremities. Neuro: Alert and oriented x3. No focal neuro deficits. Psych: Mild delirium Objective Labs 09/12/24 05:23 09/12/24 05:23 Labs: Laboratory Results - last 24 hr 09/12/24 09/12/24 05:23 15:30 WBC 35.2 H* RBC 3.61 L Hgb 11.2 L Hct 33.1 L MCV 92 MCH 31.0 MCHC 33.8 RDW Std Deviation 67.2 H Plt Count 261 D Neut % (Auto) 83 H Lymph % (Auto) 4 L Osborne % (Auto) 11 Eos % (Auto) 0 Baso % (Auto) 0 Neut # (Auto) 29.2 H Lymph # (Auto) 1.6 Osborne # (Auto) 3.9 H Eos # (Auto) 0.1 Baso # (Auto) 0.1 Immature Gran # (Auto) 0.32 H Absolute Nucleated RBC 0.00 Immature Gran % 1 H Nucleated RBC % 0 Smear Path Review Cancelled Sodium 132 L Potassium 4.3 Chloride 102 Carbon Dioxide 24.0 Anion Gap 6 L BUN 17 Creatinine 0.6 Estim Creat Clear Calc 89.8 eGFR > 60 BUN/Creatinine Ratio 28 H Glucose 76 Calculated Osmolality 265 L Calcium 8.1 L Corrected Calcium 9.6 Phosphorus 2.8 Magnesium 1.8 Total Bilirubin 2.0 H AST 141 H ALT 85 H Alkaline Phosphatase 319 H Total Protein 6.0 Albumin 2.1 L Globulin 3.9 H Albumin/Globulin Ratio 0.5 L Procalcitonin 0.87 H ABG Interpretation ABG results: 09/07/24 14:37 ABG pH 7.44 ABG pCO2 46 ABG pO2 65 L ABG HCO3 31 H ABG O2 Saturation 93 ABG Base Excess 6 H Quality Measures Quality Measures VTE prophylaxis Advance care planning discussed with:: patient Assessment & Plan Assessment Current Active Medications: Generic Name Dose Route Start Last Admin Trade Name Freq PRN Reason Stop Dose Admin Acetaminophen 650 mg 09/07/24 18:37 Acetaminophen 325 Mg Tablet PO 10/07/24 18:36 Q6H PRN PAIN OR FEVER > 100.4 Albuterol/Ipratropium 3 ml 09/07/24 20:00 Albuterol/Ipratropium (Duoneb) Rt Lauren 3 Ml Nebu INH 10/07/24 19:59 Q2HR PRN SHORTNESS OF BREATH OR WHEEZE Amiodarone HCl 200 mg 09/08/24 19:00 09/12/24 09:42 Amiodarone Hcl 200 Mg Tablet PO 10/08/24 18:59 200 mg BID GHADA Administration Benzonatate 200 mg 09/12/24 09:27 Benzonatate 100 Mg Capsule PO 10/12/24 09:26 Q8HR PRN COUGH Protocol Bisacodyl 10 mg 09/07/24 21:29 Bisacodyl 10 Mg Supp [place] 10/07/24 21:28 QDAY PRN Constipation Protocol Collagenase 0 gm 09/11/24 21:00 09/11/24 20:55 Collagenase Oint 30 Gm Tube TOP 10/11/24 20:59 1 applicatio HS GHADA Administration Gabapentin 100 mg 09/07/24 22:00 09/12/24 13:31 Gabapentin 100 Mg Capsule PO 10/07/24 21:59 100 mg TID GHADA Administration Ceftriaxone Sodium/Dextrose 1 gm in 50 mls @ 100 mls/hr 09/07/24 18:43 09/12/24 09:43 Rocephin/D5w 1gm Iv Premix IV 09/14/24 18:42 100 mls/hr Q12HR GHADA Administration Doxycycline Hyclate 100 mg/ 100 mls @ 100 mls/hr 09/08/24 09:00 09/12/24 09:43 Sodium Chloride IV 09/15/24 08:59 100 mls/hr BID GHADA Administration Magnesium Hydroxide 30 ml 09/07/24 21:29 Milk Of Magnesia Susp 30 Ml Udc PO 10/07/24 21:28 QDAY PRN CONSTIPATION Protocol Metoclopramide HCl 10 mg 09/07/24 18:37 09/11/24 04:17 Metoclopramide Inj 5 Mg/Ml Vial 2 Ml IVP 10/07/24 18:36 10 mg Q6H PRN Administration NAUSEA OR VOMITING Protocol Morphine Sulfate 15 mg 09/07/24 21:45 09/12/24 09:42 Morphine Sulf 15 Mg Tabcr PO 09/12/24 21:44 15 mg Q12H GHADA Administration Protocol Pantoprazole Sodium 40 mg 09/08/24 09:00 09/12/24 09:43 Pantoprazole Inj 40 Mg Vial IVP 10/08/24 08:59 40 mg QDAY GHADA Administration Rivaroxaban 20 mg 09/08/24 21:00 09/11/24 20:53 Rivaroxaban 10 Mg Tablet PO 10/08/24 20:59 20 mg HS GHADA Administration Plan Nneka Burciaga is a 74-year-old female with a history of enlarged CBD s/p ERCP on 07/2024, COPD on 2 L home O2, HFpEF (60% on 07/2024), a-fib on Xarelto, hypertension, and chronic pain on home morphine who is admitted for AHRF secondary to pneumonia secondary to possible aspiration event, currently hospitalized due to fatigue and feeling weak. #Acute on chronic hypoxic respiratory failure secondary to possible aspiration event #Right lower lobe pneumonia #Lactic acidosis, improving #fatigue, improving Patient was in normal state of health prior to admission and per son she had an episode of emesis when eating. Given acuity of patient's presentation and CXR findings, etiology may be due to aspiration. However, at bedside in ED vital monitor showed what appeared to be VT/VF and thus will refrain from QTc prolonging agents (i.e. doxycycline, metronidazole). In ED, she was saturating in mid-90s on 15 L oxymask. At baseline, she utilizes 2 L oxygen mostly when sleeping and longstanding history of smoking and likely has COPD for which can keep O2 titrated between 88-92%. 09/10/2024: Oxygen saturation at 94% on 4L NC. - CXR (09/12) shows significant Bilateral PNA ? Continue Ceftriaxone and doxycycline (09/07-) - Monitor for clinical deterioration. ? Blood cultures 09/07: NGTD ? Sputum cultures ordered, follow up ? Supplemental oxygen as needed ? Keep oxygen titrated between 88 and 92% - Physical Therapy not needed for insurance auth in this situation. Patient is returning to SNF. PT eval cancelled. #Atrial fibrillation on Xarelto #Rate-related BBB In ED sausage cooker revealed wide QRS complexes with heart rate above 100 bpm and concern for nonsustained VT. Cardiology evaluated patient and stated that patient likely has a rate-related BBB due to underlying conditions such as infection and/or dehydration. QRS complexes have similar morphology, however during VT they tend to have more uniform and narrower QRS complexes in comparison to BBB with a typical shape that is different from baseline. VT typically has a higher heart rate above 150 and is sustained or paroxysmal. At baseline, rhythm is a-fib and appearance of BBB on top of that may confuse the diagnosis with VT. ? Per cardiology recs, continue PO amiodarone 200 mg BID ? Continue treating underlying cause ? Close monitoring of hemodynamics ? Xarelto 20 mg p.o. at bedtime ? Will continue holding Coreg given that MAP was 67 in ED. Will continue if BP permits. #RUE edema Patient does not have any complaints regarding upper extremities Venous Duplex Upper Extremity Negative for DVT #HFpEF (60% on 07/2024) Follows Dr. Browning outpatient. Does not appear to be fluid overload on exam, no vascular congestion on CXR, and CBC shows what appears to be hemoconcentration given elevated WBC, hemoglobin, and platelets though may be reactive thrombocytosis. Additionally, presents with SAPPHIRE given previous creatinine of 0.7 and now presents with creatinine of 1.0 with BUN/creatinine ratio > 20. Thus, patient likely overall dehydrated and will hold diuretics at this time. 300 cc NS bolus, can give additional IVF if indicated. ? Cardiology following as above ? NS at 100 cc/hr ? Hold diuretics, can resume as needed ? 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 After procedure, she continued to have elevated T. bili and transaminitis and again presents with relatively similar values. ? Follow-up GI outpatient ? Will need repeat ERCP with spyglass to examine CBD with possible biopsy #Chronic pain ? Gabapentin 100 mg p.o. three times daily ? Morphine ER 15 mg twice per day #COPD on 2 L home O2 Does not have any inhalers at home per son. ? Duonebs as needed #Chronic Leukocytosis, reactive vs inflammatory vs infective process Patient has a history of reactive and infectious etiologies for leukocytosis on previous admissions. WBC have been elevated >20 this admission, consistent with previous admissions. Peripheral smear done 07/2024 reported reactive leukocytosis with no morphological abnormality identified. - Peripheral smear pathology rechecked 09/07/2024 showing similar findings as month before of reactive leukocytosis with no morphological abnormality identified with Mild normocytic anemia without hemolysis. Hospital management: Disposition: IV antibiotics, blood cultures NGTD, cardiology following Diet: low sodium diet, dysphagia 2 diet Lines: PIV DVT prophylaxis: xarelto GI prophylaxis: pantoprazole CODE STATUS: DNR/DNI Plan Discussed with Dr. Shira Murdock MD PGY-1 Internal Medicine
[2024-09-12] MEDS: COLLAGENASE OINT 30 GM TUBE TOP (21:00)
[2024-09-12] MEDS: RIVAROXABAN 10 MG TABLET 20 MG PO (21:56)
[2024-09-13] VITALS (17 sets, daily range): BP systolic 92–130; BP diastolic 50–81; PULSE 56–114; RESP 17–26; TEMP 35.6–36.7; O2SAT 95–99; BMI 36.1
[2024-09-13] MEDS: GABAPENTIN 100 MG CAPSULE PO ×3 (05:33→21:11)
[2024-09-13 06:00] LABS: Basophils # (Auto) 0.1 Thou/mm3 (0.0-0.2); Basophils % (Auto) 0 % (0-2.5); Eosinophils # (Auto) 0.2 Thou/mm3 (0.0-0.5); Eosinophils % (Auto) 1 % (0-10); Hematocrit 32.2 % (36.0-46.0); Hemoglobin 11.0 g/dL (12.0-16.0); Immature Granulocytes Auto 0.66 Thou/mm3 (0.00-0.00); Lymphocytes # (Auto) 1.8 Thou/mm3 (1.0-4.8); Lymphocytes % (Auto) 5 % (10-50); Mean Corpuscular HGB Conc 34.2 g/dl (31.0-37.0); Mean Corpuscular Hemoglobin 31.4 pg (25.0-35.0); Mean Corpuscular Volume 92 fL (80-100); Monocytes # (Auto) 3.9 Thou/mm3 (0.0-0.8); Monocytes % (Auto) 10 % (0-12); Neutrophils # (Auto) 31.3 Thou/mm3 (1.8-7.7); Neutrophils % (Auto) 83 % (37-80); Nucleated Red Blood Cell # 0.00 Thou/mm3 (0.00-0.00); Nucleated Red Blood Cell % 0 /100 WBC (0); Platelet Count 406 Thou/mm3 (140-440); RDW Standard Deviation 67.1 fL (36.4-46.3); Red Blood Count 3.50 Miln/mm3 (4.00-5.20)
[2024-09-13 06:05] LABS: White Blood Count 38.0 Thou/mm3 (3.6-11.0)
[2024-09-13 06:07] LABS: Path Review Blood Smear Sent to Pathologist
[2024-09-13 06:26] LABS: Alanine Aminotransferase 85 U/L (10-49); Albumin, Serum 2.1 gm/dL (3.4-4.8); Albumin/Globulin Ratio 0.5 (1.2-2.2); Alkaline Phosphatase 336 U/L (46-116); Anion Gap 7 (7-16); Aspartate Amino Transferase 139 U/L (0-34); BUN/Creatinine Ratio 37 Ratio (12-20); Bilirubin,Total 1.9 mg/dL (0.3-1.2); Blood Urea Nitrogen 22 mg/dL (9-23); Calcium 8.2 mg/dL (8.3-10.6); Calcium (Corrected) 9.7 mg/dL (8.5-10.1); Carbon Dioxide 25.6 mMol/L (20.0-31.0); Chloride 100 mMol/L (98-107); Creatinine (Component) 0.6 mg/dL (0.6-1.3); Estimated Creatinine Clearance 89.8 mL/min (>60); Globulin 3.9 gm/dL (2.3-3.5); Glucose 84 mg/dL (74-106); Magnesium 1.9 mg/dL (1.6-2.6); Osmolality,Calculated 268 (275-295); Phosphorous 3.3 mg/dL (2.4-5.1); Potassium 4.4 mMol/L (3.4-5.1); Sodium 133 mMol/L (136-145); Total Protein 6.0 gm/dL (5.7-8.2); eGFR > 60 See Note
[2024-09-13] MEDS: cefTRIAXone/D5w 1gm IV premix 1 GM/50 ML BAG IV (09:06)
[2024-09-13] MEDS: DOXYCYCLINE INJ 100 MG in SODIUM CHLORIDE 0.9% (POP) 100 ML IV (09:10)
[2024-09-13] MEDS: Morphine Sulf 15 MG TABCR PO ×2 (09:10→21:12)
[2024-09-13] MEDS: LEVOFLOXACIN/D5W 750MG IVPB 750 MG/150 ML BAG 100 MG IV (11:01)
--- NOTE | 2024-09-13 12:05 | XR_ITS ---
Examination: CT abdomen with intravenous contrast CT pelvis with intravenous contrast 2-D coronal reconstructions 2-D sagittal reconstructions Date and time of exam:2024, 1336 hrs. Comparison July 30, 2024 Indications: Leukocytosis today. CTDI: vol (mGy) 15 DLP: (mGycm) 796 Technique: Multiple axial sections of the abdomen and pelvis have been obtained. 64 slice high-resolution scanner used. 3 mm axial sections have been obtained, post intravenous injection 60 cc [id number] 2-D sagittal, coronal reconstructions obtained. Low dose protocols were performed. One or more of the following dose reduction techniques were used; automated exposure control, adjustment of the mA and/or KV according to patient size, use of iterative reconstruction technique. Findings: Prominent pneumonia right base with small right pleural effusion Mild to moderate enlargement cardiac contour Significant hepatomegaly, liver irregular in contour with fatty infiltration Mild ascites Pneumobilia Biliary stent satisfactory position Edema around the pancreas Radiolucency axial image 104 in the pancreatic head, 20 mm, which may represent an early pseudocyst Atrophic left kidney Moderate renal parenchymal scar formation No obstruction 20 mm fat-containing umbilical hernia Normal appendix Atrophic uterus Urinary bladder contracted around a Delgado catheter Severe osteopenia Impression: Prominent right base pneumonia Significant hepatomegaly, primary hepatocellular disease versus cirrhosis Mild ascites Edema around the pancreas 20 mm radiolucency in the pancreatic head which may represent an early pseudocyst
[2024-09-13] MEDS: SODIUM CHLORIDE RT 10% 15 ML NEBU 5 ML INH (12:22)
[2024-09-13] MEDS: ALBUTEROL/IPRATROPIUM (Duoneb) RT SOL 3 ML NEBU INH ×4 (12:22→22:14)
[2024-09-13] MEDS: FUROSEMIDE INJ 10 MG/ML 4ML VIAL 40 MG IVP (15:11)
--- NOTE | 2024-09-13 15:37 | PC.RT ---
Spoke with Wasiq regarding the sputum induction I preformed and the patient not being able to cough anything up. No sputum has been collected at this point. Sputum cup at bedside
[2024-09-13] MEDS: ALBUMIN HUMAN 25% IVPB 25 GM/100 ML BTL IV (16:39)
[2024-09-13] MEDS: SPIRONOLACTONE 25 MG TABLET PO (16:40)
--- NOTE | 2024-09-13 17:46 | ESCONSULT_ITS ---
RE: NNEKA BURCIAGA : 1950 DATE OF CONSULTATION: 09/13/2024 REFERRING PHYSICIAN: Dr. Seema Burdick. REASON FOR CONSULTATION: 1. Leukocytosis. 2. Aspiration pneumonia. HISTORY OF PRESENT ILLNESS: Ms. Nneka Burciaga is a 74-year-old female with enlarged common bile duct, status post ERCP on 08/04/2024; COPD, at home on oxygen; AFib, hypertension; chronic pain, on morphine at home, presented to the emergency room with desaturation and possible aspiration event. She was in the usual state of health prior to the admission. At lunchtime, she was unable to eat her food and stated that she was spitting and throwing it up and had an episode of hypoxia and altered mentation/encephalopathy. Because of that, the patient was brought here. She was found to have pneumonia on chest x-ray, right lung infiltrates on chest x-ray and her leukocyte count was 227 and that was the same when she was discharged. She also had a lactate of 3 that improved with IVF. Her total bilirubin was 1.6, AST was 36, ALT was 66, ALP was 274, which were all relatively similar to the lab upon discharge on 08/15/2024. Because of her leukocytosis, this consultation is obtained. Most of the information is gathered through the record. PAST MEDICAL HISTORY: It is noted that she had a past medical history consistent with COPD, atrial fibrillation, hypertension, enlarged common bile duct, chronic pain. PAST SURGICAL HISTORY: Cholecystectomy, tympanic membrane ear surgery, and right leg cyst incision and drainage. SOCIAL HISTORY: Smokes less than 10 cigarettes per day, previously 2 packs per day for 50 years. No use of alcohol or illicit drug. FAMILY HISTORY: Irrelevant. ALLERGIES: DOXYCYCLINE. MEDICATIONS: As per record. PHYSICAL EXAMINATION: GENERAL: She is alert and complains of pain all over, but is not very specific. VITAL SIGNS: She is afebrile. Vitals are stable. HEENT: Pupils are reactive to light and accommodation. Sclerae nonicteric. Conjunctivae are pale. NECK: Supple. There is no JVD or palpable mass. LUNGS: There is good air entry bilaterally, but the patient does not take a deep breath. HEART: Heart sounds are irregularly irregular. ABDOMEN: Soft. Bowel sounds are present. On palpation, she does complain of pain all over, but there is no rebound or rigidity and she is not very specific where the pain is and what is the intensity. Even when I touched her leg, she said it hurts. EXTREMITIES: 3+ pedal pulses. CENTRAL NERVOUS SYSTEM: The patient is able to answer very simple questions. LABORATORY DATA: Her blood work done today has a WBC count of 38, hemoglobin 11, hematocrit 32.2 with normal indices, and platelet count of 406,000. Differential has 83% neutrophils, but she has 10% monocytes, they are 3.9%, a little bit on the higher side because of infection and she is known to have pneumonia. Her sodium is 133, potassium is 4.4, chloride is 100. Her bilirubin is 1.9, AST is 139, ALT is 85, and alkaline phosphatase is 336, they are all elevated. Albumin is 2.1, which is low, and globulin is 3.9. IMAGING: Her CT scan of the abdomen and pelvis done today showed a prominent hepatomegaly, primary hepatocellular versus cirrhosis, mild ascites, edema around the pancreas, 2 mm radiodensity in the pancreatic head, which may represent an early pseudocyst. PLAN AND RECOMMENDATION: I agree with the present plan of treatment. I will follow this patient with you . At the moment, I think this sudden elevation in her leukocyte count is most probably related to her pneumonia and one should wait until this settle down and if the leukocyte is persistent, has to find any other source because the pathologist in her review of the slide mentioned that it is a reactive leukocytosis. One has to monitor and go ahead and treat any infection. Once the patient returns back to her baseline, then one can monitor the blood counts and we will make the recommendation accordingly. I thank you, Dr. Seema Burdick, for letting me participate in the care of this interesting patient. If you have any questions, please feel free to contact me. DT: 15:27:55 TT: 16:52:00 Ref: [id number] - TID: [id number] MTDD
--- NOTE | 2024-09-13 19:02 | ESPR_ITS ---
<Statement entered by Jason Browning MD - 09/14/24 19:03> The patient evaluated clinically appears to be about the same does not complain of any chest pain shortness still have poor appetite and abdominal discomfort appears to have jaundice A-fib is controlled does not complain of any cardiac limitations symptoms able to the patient with PGY 2 Dr. Christian Ford agree with the treatment plan recommendation as documented Documentation for date of: 09/13/24 Subjective Subjective Interval history: Patient is seen and examined at bedside No acute overnight events. Still complaining of pain in the abdomen, mainly in the right upper quadrant and right lower quadrant Vitals are stable. Patient is still in atrial fibrillation with controlled ventricular rate - Patient does not appear to be in acute heart failure as of now but has anasarca - Recommended to continue amiodarone 200 Mg p.o. twice daily for now and rivaroxaban 20 Mg p.o. at bedtime - Started on albumin 25 g daily, Lasix 40 Mg IV daily and resumed her home spironolactone 25 mL p.o. daily as patient's blood pressure is within normal limits as of now - Recommended to monitor blood pressures and titrate medications as needed - Keep potassium greater than 4 and magnesium greater than 2 Exam Vital Signs Temp Pulse Resp BP Pulse Ox O2 Del Method O2 Flow Rate 97.2 F 92 23 H 94/72 96 Nasal Cannula 3 09/13/24 16:00 09/13/24 16:40 09/13/24 16:00 09/13/24 16:40 09/13/24 16:00 09/13/24 16:00 09/13/24 16:00 Narrative Exam General: Awake. HEENT: Normocephalic, atraumatic, mucous membranes moist. Heart: Regular rate and rhythm, no murmurs. No JVD Lungs: bronchial breath sounds heard in right lung Abdomen: Soft, nondistended, tenderness noted mainly in the right upper quadrant and right lower quadrant, positive bowel sounds. ?No guarding or rebound tenderness. Neurologic: Alert and oriented x3, no gross neurological deficit, and patient able to move all 4 extremities. Extremities: Bilateral pitting 2+ pedal edema noted Skin: No rash or ecchymoses. Patient's abdominal with the patient Objective Labs 09/14/24 04:20 09/14/24 04:20 Labs: Laboratory Results - last 24 hr 09/13/24 05:46 WBC 38.0 H* RBC 3.50 L Hgb 11.0 L Hct 32.2 L MCV 92 MCH 31.4 MCHC 34.2 RDW Std Deviation 67.1 H Plt Count 406 D Neut % (Auto) 83 H Lymph % (Auto) 5 L Lewis % (Auto) 10 Eos % (Auto) 1 Baso % (Auto) 0 Neut # (Auto) 31.3 H Lymph # (Auto) 1.8 Lewis # (Auto) 3.9 H Eos # (Auto) 0.2 Baso # (Auto) 0.1 Immature Gran # (Auto) 0.66 H Absolute Nucleated RBC 0.00 Immature Gran % 2 H Nucleated RBC % 0 Smear Path Review Sent to Pathologist Sodium 133 L Potassium 4.4 Chloride 100 Carbon Dioxide 25.6 Anion Gap 7 BUN 22 Creatinine 0.6 Estim Creat Clear Calc 89.8 eGFR > 60 BUN/Creatinine Ratio 37 H Glucose 84 Calculated Osmolality 268 L Calcium 8.2 L Corrected Calcium 9.7 Phosphorus 3.3 Magnesium 1.9 Total Bilirubin 1.9 H AST 139 H ALT 85 H Alkaline Phosphatase 336 H Total Protein 6.0 Albumin 2.1 L Globulin 3.9 H Albumin/Globulin Ratio 0.5 L ABG Interpretation ABG results: 09/07/24 14:37 ABG pH 7.44 ABG pCO2 46 ABG pO2 65 L ABG HCO3 31 H ABG O2 Saturation 93 ABG Base Excess 6 H Quality Measures Quality Measures VTE prophylaxis Advance care planning discussed with:: patient Assessment & Plan Assessment Current Active Medications: Generic Name Dose Route Start Last Admin Trade Name Darío PRN Reason Stop Dose Admin Acetaminophen 650 mg 09/07/24 18:37 Acetaminophen 325 Mg Tablet PO 10/07/24 18:36 Q6H PRN PAIN OR FEVER > 100.4 Albuterol/Ipratropium 3 ml 09/13/24 15:00 09/13/24 15:31 Albuterol/Ipratropium (Duoneb) Rt Lauren 3 Ml Nebu INH 10/13/24 14:59 3 ml Q4HRRT GHADA Administration Amiodarone HCl 200 mg 09/08/24 19:00 09/13/24 08:56 Amiodarone Hcl 200 Mg Tablet PO 10/08/24 18:59 Not Given BID GHADA Benzonatate 200 mg 09/12/24 09:27 Benzonatate 100 Mg Capsule PO 10/12/24 09:26 Q8HR PRN COUGH Protocol Bisacodyl 10 mg 09/07/24 21:29 Bisacodyl 10 Mg Supp [place] 10/07/24 21:28 QDAY PRN Constipation Protocol Collagenase 0 gm 09/11/24 21:00 09/12/24 21:00 Collagenase Oint 30 Gm Tube TOP 10/11/24 20:59 1 applicatio HS GHADA Administration Furosemide 40 mg 09/13/24 15:00 09/13/24 15:11 Furosemide Inj 10 Mg/Ml 4ml Vial IVP 10/13/24 14:59 40 mg QDAY GHADA Administration Gabapentin 100 mg 09/07/24 22:00 09/13/24 14:32 Gabapentin 100 Mg Capsule PO 10/07/24 21:59 100 mg TID GHADA Administration Levofloxacin/Dextrose 750 mg in 150 mls @ 100 mls/hr 09/13/24 09:30 09/13/24 11:01 Levaquin Ivpb IV 09/20/24 09:29 100 mls/hr QDAY GHADA Administration Albumin Human 25 gm in 100 mls @ 100 mls/hr 09/13/24 15:31 09/13/24 16:39 Albuminar-25 Ivpb IV 09/16/24 15:30 100 mls/hr QDAY GHADA Administration Magnesium Hydroxide 30 ml 09/07/24 21:29 Milk Of Magnesia Susp 30 Ml Udc PO 10/07/24 21:28 QDAY PRN CONSTIPATION Protocol Metoclopramide HCl 10 mg 09/07/24 18:37 09/11/24 04:17 Metoclopramide Inj 5 Mg/Ml Vial 2 Ml IVP 10/07/24 18:36 10 mg Q6H PRN Administration NAUSEA OR VOMITING Protocol Morphine Sulfate 15 mg 09/12/24 23:00 09/13/24 09:10 Morphine Sulf 15 Mg Tabcr PO 09/17/24 22:59 15 mg Q12HR GHADA Administration Protocol Pantoprazole Sodium 40 mg 09/08/24 09:00 09/13/24 09:08 Pantoprazole Inj 40 Mg Vial IVP 10/08/24 08:59 40 mg QDAY GHADA Administration Rivaroxaban 20 mg 09/14/24 21:00 Rivaroxaban 10 Mg Tablet PO 10/08/24 20:59 [facility] Spironolactone 25 mg 09/13/24 15:45 09/13/24 16:40 Spironolactone 25 Mg Tablet PO 10/13/24 15:44 25 mg [facility] Administration Plan 74-year-old female with a past medical history of HFpEF with an EF of 60 to 65%, paroxysmal atrial fibrillation on anticoagulation, essential hypertension, recent admission with enlarged CBD status post ERCP in July 2024, obesity, hypothyroidism presented to the emergency department for further evaluation of hypoxia with questionable aspiration PNA. # Atrial fibrillation with RVR ---> CVR # Wide-complex tachycardia - self-resolved # HFpEF with an EF of 60 to 65% # Hypoalbuminemia - Patient presented to hospital with aspiration pneumonia. Primary team did start the patient on antibiotics. - Patient had history of atrial fibrillation with rapid ventricular rate and is on carvedilol 3.125 Mg twice daily, amiodarone 200 Mg twice daily, rivaroxaban 20 Mg p.o. at bedtime - Regarding the episode of wide complex tachycardia at 110 bpm unlikely VT but could be NSVT. Reviewed the previous EKGs and patient probably has rate related incomplete bundle branch block which could also be the differential. - Initially started on amiodarone bolus as well as drip and later changed to oral medication - Atrial fibrillation with RVR episode mostly secondary to SAPPHIRE and severe dehydration in the setting of possible aspiration pneumonia and poor oral intake. - Echo on 07/2024- normal-sized left ventricle with normal left wall thickness wall motion ejection fraction of approximately 60%. Mildly dilated left atrium. Plan - Patient does not appear to be in acute heart failure as of now but has anasarca - Recommended to continue amiodarone 200 Mg p.o. twice daily for now and rivaroxaban 20 Mg p.o. at bedtime - Started on albumin 25 g daily, Lasix 40 Mg IV daily and resumed her home spironolactone 25 mL p.o. 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 Thank you for the consult and allowing me to participate in the care of the patient. Cardiology will continue to follow. Patient plan of care was discussed with Wastewater Treatment Operator Dr. Nam Ashley, PGY2
--- NOTE | 2024-09-13 19:32 | ESPR_ITS ---
Documentation for date of: 09/13/24 Subjective Subjective Interval history: Patient was seen and examined at the bedside. Patient reported that she was feeling weak. She had cough with mild phlegm. Labs showed continued uptrending white count. Hemoglobin was stable. CT abdomen was showed right base pneumonia with mild ascites and edema around pancreas. 20 mm radiolucency in the pancreatic head. Patient was started on spironolactone 25 mg p.o. daily, Lasix 40 mg IV daily and albumin 25 g once every day. Aspergillosis pending. Started on Levaquin 750 mg once a day Exam Vital Signs Temp Pulse Resp BP Pulse Ox O2 Del Method O2 Flow Rate 97.2 F 92 23 H 94/72 96 Nasal Cannula 3 09/13/24 16:00 09/13/24 16:40 09/13/24 16:00 09/13/24 16:40 09/13/24 16:00 09/13/24 16:00 09/13/24 16:00 Narrative Exam General: Alert and oriented x3. In no acute distress. Cardiovascular: Normal S1 and S2. Irregularly irregular, tachycardic, 2 out of 6 systolic murmur at the apex, no peripheral pitting edema noted. Respiratory: No respiratory distress. Bilateral wheezing of the lungs. Mild L upper rhonchi Abdomen: Soft, nontender, nondistended. Active bowel sounds. Skin: No rash. Warm to touch. Musculoskeletal: RUE 4+ pitting edema. Able to move all 4 extremities. Neuro: Alert and oriented x3. No focal neuro deficits. Psych: Appropriate mood and affect Objective Labs 09/14/24 04:20 09/14/24 04:20 Labs: Laboratory Results - last 24 hr 09/13/24 05:46 WBC 38.0 H* RBC 3.50 L Hgb 11.0 L Hct 32.2 L MCV 92 MCH 31.4 MCHC 34.2 RDW Std Deviation 67.1 H Plt Count 406 D Neut % (Auto) 83 H Lymph % (Auto) 5 L [place] % (Auto) 10 Eos % (Auto) 1 Baso % (Auto) 0 Neut # (Auto) 31.3 H Lymph # (Auto) 1.8 [place] # (Auto) 3.9 H Eos # (Auto) 0.2 Baso # (Auto) 0.1 Immature Gran # (Auto) 0.66 H Absolute Nucleated RBC 0.00 Immature Gran % 2 H Nucleated RBC % 0 Smear Path Review Sent to Pathologist Sodium 133 L Potassium 4.4 Chloride 100 Carbon Dioxide 25.6 Anion Gap 7 BUN 22 Creatinine 0.6 Estim Creat Clear Calc 89.8 eGFR > 60 BUN/Creatinine Ratio 37 H Glucose 84 Calculated Osmolality 268 L Calcium 8.2 L Corrected Calcium 9.7 Phosphorus 3.3 Magnesium 1.9 Total Bilirubin 1.9 H AST 139 H ALT 85 H Alkaline Phosphatase 336 H Total Protein 6.0 Albumin 2.1 L Globulin 3.9 H Albumin/Globulin Ratio 0.5 L ABG Interpretation ABG results: 09/07/24 14:37 ABG pH 7.44 ABG pCO2 46 ABG pO2 65 L ABG HCO3 31 H ABG O2 Saturation 93 ABG Base Excess 6 H Quality Measures Quality Measures VTE prophylaxis Advance care planning discussed with:: patient Assessment & Plan Assessment Current Active Medications: Generic Name Dose Route Start Last Admin Trade Name Freq PRN Reason Stop Dose Admin Acetaminophen 650 mg 09/07/24 18:37 Acetaminophen 325 Mg Tablet PO 10/07/24 18:36 Q6H PRN PAIN OR FEVER > 100.4 Albuterol/Ipratropium 3 ml 09/13/24 15:00 09/13/24 19:16 Albuterol/Ipratropium (Duoneb) Rt Lauren 3 Ml Nebu INH 10/13/24 14:59 3 ml Q4HRRT GHADA Administration Amiodarone HCl 200 mg 09/08/24 19:00 09/13/24 08:56 Amiodarone Hcl 200 Mg Tablet PO 10/08/24 18:59 Not Given BID GHADA Benzonatate 200 mg 09/12/24 09:27 Benzonatate 100 Mg Capsule PO 10/12/24 09:26 Q8HR PRN COUGH Protocol Bisacodyl 10 mg 09/07/24 21:29 Bisacodyl 10 Mg Supp OK 10/07/24 21:28 QDAY PRN Constipation Protocol Collagenase 0 gm 09/11/24 21:00 09/12/24 21:00 Collagenase Oint 30 Gm Tube TOP 10/11/24 20:59 1 applicatio HS GHADA Administration Furosemide 40 mg 09/13/24 15:00 09/13/24 15:11 Furosemide Inj 10 Mg/Ml 4ml Vial IVP 10/13/24 14:59 40 mg QDAY GHADA Administration Gabapentin 100 mg 09/07/24 22:00 09/13/24 14:32 Gabapentin 100 Mg Capsule PO 10/07/24 21:59 100 mg TID GHADA Administration Levofloxacin/Dextrose 750 mg in 150 mls @ 100 mls/hr 09/13/24 09:30 09/13/24 11:01 Levaquin Ivpb IV 09/20/24 09:29 100 mls/hr QDAY GHADA Administration Albumin Human 25 gm in 100 mls @ 100 mls/hr 09/13/24 15:31 09/13/24 16:39 Albuminar-25 Ivpb IV 09/16/24 15:30 100 mls/hr QDAY GHADA Administration Magnesium Hydroxide 30 ml 09/07/24 21:29 Milk Of Magnesia Susp 30 Ml Udc PO 10/07/24 21:28 QDAY PRN CONSTIPATION Protocol Metoclopramide HCl 10 mg 09/07/24 18:37 09/11/24 04:17 Metoclopramide Inj 5 Mg/Ml Vial 2 Ml IVP 10/07/24 18:36 10 mg Q6H PRN Administration NAUSEA OR VOMITING Protocol Morphine Sulfate 15 mg 09/12/24 23:00 09/13/24 09:10 Morphine Sulf 15 Mg Tabcr PO 09/17/24 22:59 15 mg Q12HR GHADA Administration Protocol Pantoprazole Sodium 40 mg 09/08/24 09:00 09/13/24 09:08 Pantoprazole Inj 40 Mg Vial IVP 10/08/24 08:59 40 mg QDAY GHADA Administration Rivaroxaban 20 mg 09/14/24 21:00 Rivaroxaban 10 Mg Tablet PO 10/08/24 20:59 WSUPPER GHADA Spironolactone 25 mg 09/13/24 15:45 09/13/24 16:40 Spironolactone 25 Mg Tablet PO 10/13/24 15:44 25 mg QDAY GHADA Administration Plan Nneka Burciaga is a 74-year-old female with a history of enlarged CBD s/p ERCP on 07/2024, COPD on 2 L home O2, HFpEF (60% on 07/2024), a-fib on Xarelto, hypertension, and chronic pain on home morphine who is admitted for AHRF secondary to pneumonia secondary to possible aspiration event, currently hospitalized due to fatigue and feeling weak. #Acute on chronic hypoxic respiratory failure secondary to possible aspiration event #Right lower lobe pneumonia hospital-acquired #Lactic acidosis, resolved #fatigue, improving Patient was in normal state of health prior to admission and per son she had an episode of emesis when eating. Given acuity of patient's presentation and CXR findings, etiology may be due to aspiration. However, at bedside in ED vital monitor showed what appeared to be VT/VF and thus will refrain from QTc prolonging agents (i.e. doxycycline, metronidazole). In ED, she was saturating in mid-90s on 15 L oxymask. At baseline, she utilizes 2 L oxygen mostly when sleeping and longstanding history of smoking and likely has COPD for which can keep O2 titrated between 88-92%. 09/10/2024: Oxygen saturation at 94% on 4L NC. - CXR (09/12) shows significant Bilateral PNA ? Discontinue ceftriaxone and doxycycline. Started Levaquin 750 mg once daily - Monitor for clinical deterioration. ? Blood cultures 09/07: NGTD ? Sputum cultures ordered, follow up ? Supplemental oxygen as needed ? Keep oxygen titrated between 88 and 92% #Liver cirrhosis possibly MASH #Biliary stricture s/p ERCP and stent placement #Transaminitis #Hyperbilirubinemia Previously admitted for enlarged CBD and underwent ERCP on 08/01/2024 for which a stent was placed. After procedure, she continued to have elevated T. bili and transaminitis and again presents with relatively similar values. ?CT abdomen pelvis showed prominent right base pneumonia. Significant hepatomegaly. Mild ascites. Edema around pancreas with 20 mm radiolucency in the pancreatic head with possible pseudocyst. ? Follow-up GI outpatient ?Started Lasix and spironolactone with albumin #Chronic Leukocytosis, reactive vs inflammatory vs infective process Patient has a history of reactive and infectious etiologies for leukocytosis on previous admissions. WBC have been elevated >20 this admission, consistent with previous admissions. Peripheral smear done 07/2024 reported reactive leukocytosis with no morphological abnormality identified. - Peripheral smear pathology rechecked 09/07/2024 showing similar findings as month before of reactive leukocytosis with no morphological abnormality identified with Mild normocytic anemia without hemolysis. ?Consulted smoke jumper supervisor, Dr. Robison for further evaluation #Atrial fibrillation on Xarelto #Rate-related BBB In ED school bus monitor revealed wide QRS complexes with heart rate above 100 bpm and concern for nonsustained VT. Cardiology evaluated patient and stated that patient likely has a rate-related BBB due to underlying conditions such as infection and/or dehydration. QRS complexes have similar morphology, however during VT they tend to have more uniform and narrower QRS complexes in comparison to BBB with a typical shape that is different from baseline. VT typically has a higher heart rate above 150 and is sustained or paroxysmal. At baseline, rhythm is a-fib and appearance of BBB on top of that may confuse the diagnosis with VT. ? Per cardiology recs, continue PO amiodarone 200 mg BID ? Continue treating underlying cause ? Close monitoring of hemodynamics ? Xarelto 20 mg p.o. at bedtime ? Will continue holding Coreg given that MAP was 67 in ED. Will continue if BP permits. #HFpEF (60% on 07/2024) Follows Dr. Browning outpatient. Does not appear to be fluid overload on exam, no vascular congestion on CXR, and CBC shows what appears to be hemoconcentration given elevated WBC, hemoglobin, and platelets though may be reactive thrombocytosis. Additionally, presents with SAPPHIRE given previous creatinine of 0.7 and now presents with creatinine of 1.0 with BUN/creatinine ratio > 20. Thus, patient likely overall dehydrated and will hold diuretics at this time. 300 cc NS bolus, can give additional IVF if indicated. ? Cardiology following as above ?Started Lasix 40 mg IV daily, spironolactone 25 mg p.o. daily ? Strict KEVIN's ? Fluid restriction #Possible pancreatic pseudocyst ? CT showed 20 mm radiolucency in the pancreatic head with possible pancreatic pseudocyst. ? Clinically stable, will monitor #RUE edema Patient does not have any complaints regarding upper extremities Venous Duplex Upper Extremity Negative for DVT #Chronic pain ? Gabapentin 100 mg p.o. three times daily ? Morphine ER 15 mg twice per day #COPD on 2 L home O2 Does not have any inhalers at home per son. ? Duonebs as needed Hospital management: Disposition: IV antibiotics, blood cultures NGTD, cardiology following Diet: low sodium diet, dysphagia 2 diet Lines: PIV DVT prophylaxis: xarelto GI prophylaxis: pantoprazole CODE STATUS: DNR/DNI Plan of care discussed with attending physician, Dr. Heavenly Cardenas MD, PGY 3 Attending Provider Attestation/Addendum ISeema, DO, attest that I was physically present for the pearson portions of the service and evaluated the patient with the resident and I reviewed and discussed the case with the resident and agree with the resident's findings and plans of care as documented above Patient seen and evaluated this AM. Patient reports mild shortness of breath. Leukocytosis has been uptrending. Patient had previous history of reactive leukocytosis on previous admission. Will consult hematology. CT chest/abdomen/ pelvis shows right lower lobe pneumonia. Patient noted to have ascites, will start on diuretics if BP permits. Patient noted to have 2+ pitting edema in b/l UE and LE. Continue with IV abx
[2024-09-13] MEDS: AMIODARONE HCL 200 MG TABLET PO (21:11)
[2024-09-13] MEDS: COLLAGENASE OINT 30 GM TUBE TOP (21:12)
[2024-09-14] VITALS (19 sets, daily range): BP systolic 96–173; BP diastolic 60–81; PULSE 50–117; RESP 14–26; TEMP 36.1–36.6; O2SAT 93–99; BMI 32.5
--- NOTE | 2024-09-14 01:04 | PC.NURSE ---
called Dr. Vadim Smith to clarify order to remove farah, order placed on 09/12/24. Patient was started on diuretics 09/13/24, per doctor to keep farah in and let day team decide. Patient's discharge held 09/13/24 due to increasing WBCs. Patient on environmental monitoring technician A.fib at 115, notified doctor of rhythm, rate between the low hundreds to the 120s. Per doctor to continue to monitor. No new orders received.
--- NOTE | 2024-09-14 01:08 | PC.NURSE ---
called Dr. Vadim Smith regarding patient's sputum culture. Sample was collected 09/13/24 at around 2000 by RT Baptiste, lab called at 0039 09/14/24 regarding sample not a good sample, found mixed ning and epithelial cells. May need new order for sputum. No new orders received.
[2024-09-14] MEDS: ALBUTEROL/IPRATROPIUM (Duoneb) RT SOL 3 ML NEBU INH ×6 (02:57→22:14)
[2024-09-14] MEDS: GABAPENTIN 100 MG CAPSULE PO ×3 (05:19→22:02)
[2024-09-14 05:32] LABS: Basophils # (Auto) 0.1 Thou/mm3 (0.0-0.2); Basophils % (Auto) 0 % (0-2.5); Eosinophils # (Auto) 0.2 Thou/mm3 (0.0-0.5); Eosinophils % (Auto) 1 % (0-10); Hematocrit 29.8 % (36.0-46.0); Hemoglobin 10.3 g/dL (12.0-16.0); Immature Granulocytes Auto 0.29 Thou/mm3 (0.00-0.00); Lymphocytes # (Auto) 1.5 Thou/mm3 (1.0-4.8); Lymphocytes % (Auto) 5 % (10-50); Mean Corpuscular HGB Conc 34.6 g/dl (31.0-37.0); Mean Corpuscular Hemoglobin 31.8 pg (25.0-35.0); Mean Corpuscular Volume 92 fL (80-100); Monocytes # (Auto) 3.1 Thou/mm3 (0.0-0.8); Monocytes % (Auto) 10 % (0-12); Neutrophils # (Auto) 25.7 Thou/mm3 (1.8-7.7); Neutrophils % (Auto) 83 % (37-80); Nucleated Red Blood Cell # 0.00 Thou/mm3 (0.00-0.00); Nucleated Red Blood Cell % 0 /100 WBC (0); Platelet Count 314 Thou/mm3 (140-440); RDW Standard Deviation 67.6 fL (36.4-46.3); Red Blood Count 3.24 Miln/mm3 (4.00-5.20); White Blood Count 30.9 Thou/mm3 (3.6-11.0)
[2024-09-14 06:06] LABS: Alanine Aminotransferase 77 U/L (10-49); Albumin, Serum 2.3 gm/dL (3.4-4.8); Albumin/Globulin Ratio 0.6 (1.2-2.2); Alkaline Phosphatase 307 U/L (46-116); Anion Gap 12 (7-16); Aspartate Amino Transferase 120 U/L (0-34); BUN/Creatinine Ratio 30 Ratio (12-20); Bilirubin,Total 2.0 mg/dL (0.3-1.2); Blood Urea Nitrogen 18 mg/dL (9-23); Calcium 8.4 mg/dL (8.3-10.6); Calcium (Corrected) 9.8 mg/dL (8.5-10.1); Carbon Dioxide 23.1 mMol/L (20.0-31.0); Chloride 99 mMol/L (98-107); Creatinine (Component) 0.6 mg/dL (0.6-1.3); Estimated Creatinine Clearance 84.8 mL/min (>60); Globulin 3.7 gm/dL (2.3-3.5); Glucose 59 mg/dL (74-106); Magnesium 2.0 mg/dL (1.6-2.6); Osmolality,Calculated 268 (275-295); Phosphorous 3.8 mg/dL (2.4-5.1); Potassium 4.2 mMol/L (3.4-5.1); Sodium 134 mMol/L (136-145); Total Protein 6.0 gm/dL (5.7-8.2); eGFR > 60 See Note
[2024-09-14] MEDS: Morphine Sulf 15 MG TABCR PO ×2 (09:10→20:38)
[2024-09-14] MEDS: ALBUMIN HUMAN 25% IVPB 25 GM/100 ML BTL IV (09:11)
[2024-09-14] MEDS: AMIODARONE HCL 200 MG TABLET PO ×2 (09:26→20:39)
--- NOTE | 2024-09-14 09:29 | PC.NURSE ---
IV TO LEFT WRIST REMOVED PER DR. DANIELLA TANG.
--- NOTE | 2024-09-14 09:50 | PC.NURSE ---
PATIENT BLOOD SUGAR VIA FINGER STICK 74. DR. BREWER AT BEDSIDE. ORDERS RECEIVED, READ BACK AND CARRIED OUT.
[2024-09-14] MEDS: LEVOFLOXACIN/D5W 750MG IVPB 750 MG/150 ML BAG 100 MG IV (09:51)
[2024-09-14] MEDS: SPIRONOLACTONE 25 MG TABLET PO (09:55)
--- NOTE | 2024-09-14 12:50 | PC.NURSE ---
LEACHER AT BEDSIDE TO ASSESS PATIENT, POC DISCUSSED.
[2024-09-14] MEDS: FUROSEMIDE INJ 10 MG/ML 4ML VIAL 40 MG IVP (14:09)
--- NOTE | 2024-09-14 15:38 | PD.RESPRO ---
Documentation for date of: 09/14/24 Subjective Subjective Interval history: Patient was seen and examined at the bedside this morning. She appeared more lethargic and weaker to speak. She did not had her breakfast and blood sugars were low. Nurse was informed and patient was given juices. No acute overnight events were reported. She continues to have edema around her both upper extremities. Her blood pressure was soft this morning therefore only spironolactone was given Lasix was held. Dietitian recommended to have a discussion with patient's son since patient is having failure to thrive and not even able to eat by herself. Will continue with antibiotic Levaquin 750 mg once daily since her white count improved today. Hemoglobin remained stable. Sheet Rock Taper Helper also suggested to continue with current management and leukocytosis appears to be chronic. Will likely discuss more with patient's son tomorrow regarding hospice. Refer to event note. Exam Vital Signs Temp Pulse Resp BP Pulse Ox O2 Del Method O2 Flow Rate 97.3 F 83 23 H 127/66 94 L Nasal Cannula 2 09/14/24 12:00 09/14/24 14:09 09/14/24 12:09/14/24 14:09/14/24 12:00 09/14/24 12:09/14/24 12:00 Narrative Exam General: Alert and oriented x3. In no acute distress. Cardiovascular: Normal S1 and S2. Irregularly irregular, tachycardic, 2 out of 6 systolic murmur at the apex, no peripheral pitting edema noted. Respiratory: No respiratory distress. Bilateral wheezing of the lungs. Mild L upper rhonchi Abdomen: Soft, nontender, nondistended. Active bowel sounds. Skin: No rash. Warm to touch. Musculoskeletal: RUE 4+ pitting edema. Able to move all 4 extremities. Neuro: Alert and oriented x3. No focal neuro deficits. Psych: Appropriate mood and affect Objective Labs 09/15/24 05:10 09/15/24 05:10 Labs: Laboratory Results - last 24 hr 09/14/24 04:20 WBC 30.9 H D RBC 3.24 L Hgb 10.3 L Hct 29.8 L MCV 92 MCH 31.8 MCHC 34.6 RDW Std Deviation 67.6 H Plt Count 314 D Neut % (Auto) 83 H Lymph % (Auto) 5 L [place] % (Auto) 10 Eos % (Auto) 1 Baso % (Auto) 0 Neut # (Auto) 25.7 H Lymph # (Auto) 1.5 [place] # (Auto) 3.1 H Eos # (Auto) 0.2 Baso # (Auto) 0.1 Immature Gran # (Auto) 0.29 H Absolute Nucleated RBC 0.00 Immature Gran % 1 H Nucleated RBC % 0 Sodium 134 L Potassium 4.2 Chloride 99 Carbon Dioxide 23.1 Anion Gap 12 BUN 18 Creatinine 0.6 Estim Creat Clear Calc 84.8 eGFR > 60 BUN/Creatinine Ratio 30 H Glucose 59 L Calculated Osmolality 268 L Calcium 8.4 Corrected Calcium 9.8 Phosphorus 3.8 Magnesium 2.0 Total Bilirubin 2.0 H AST 120 H ALT 77 H Alkaline Phosphatase 307 H D Total Protein 6.0 Albumin 2.3 L Globulin 3.7 H Albumin/Globulin Ratio 0.6 L ABG Interpretation ABG results: 09/07/24 14:37 ABG pH 7.44 ABG pCO2 46 ABG pO2 65 L ABG HCO3 31 H ABG O2 Saturation 93 ABG Base Excess 6 H Quality Measures Quality Measures VTE prophylaxis Advance care planning discussed with:: child (Son) Assessment & Plan Assessment Current Active Medications: Generic Name Dose Route Start Last Admin Trade Name Freq PRN Reason Stop Dose Admin Acetaminophen 650 mg 09/07/24 18:37 Acetaminophen 325 Mg Tablet PO 10/07/24 18:36 Q6H PRN PAIN OR FEVER > 100.4 Albuterol/Ipratropium 3 ml 09/13/24 15:00 09/14/24 15:36 Albuterol/Ipratropium (Duoneb) Rt Lauren 3 Ml Nebu INH 10/13/24 14:59 3 ml Q4HRRT GHADA Administration Amiodarone HCl 200 mg 09/08/24 19:00 09/14/24 09:26 Amiodarone Hcl 200 Mg Tablet PO 10/08/24 18:59 200 mg BID GHADA Administration Benzonatate 200 mg 09/12/24 09:27 Benzonatate 100 Mg Capsule PO 10/12/24 09:26 Q8HR PRN COUGH Protocol Bisacodyl 10 mg 09/07/24 21:29 Bisacodyl 10 Mg Supp MD 10/07/24 21:28 QDAY PRN Constipation Protocol Collagenase 0 gm 09/11/24 21:00 09/13/24 21:12 Collagenase Oint 30 Gm Tube TOP 10/11/24 20:59 1 applicatio HS GHADA Administration Dextrose 25 ml 09/14/24 09:32 Dextrose 50%-Water Inj 50 Ml Syringe IV 10/14/24 09:31 Q15MIN PRN BG 50-70 responsive npo pt Dextrose 50 ml 09/14/24 09:32 Dextrose 50%-Water Inj 50 Ml Syringe IV 10/14/24 09:31 Q15MIN PRN BG <50 OR BG <70 & pt unresponsive Furosemide 40 mg 09/15/24 10:30 Furosemide Inj 10 Mg/Ml 4ml Vial IVP 10/13/24 14:59 QDAY@1030 GHADA Gabapentin 100 mg 09/07/24 22:00 09/14/24 13:46 Gabapentin 100 Mg Capsule PO 10/07/24 21:59 100 mg TID GHADA Administration Glucagon 1 mg 09/14/24 09:32 Glucagon Inj 1 Mg Vial IM Q15MIN PRN BG <70, and no IV access Levofloxacin/Dextrose 750 mg in 150 mls @ 100 mls/hr 09/13/24 09:30 09/14/24 09:51 Levaquin Ivpb IV 09/20/24 09:29 100 mls/hr QDAY GHADA Administration Albumin Human 25 gm in 100 mls @ 100 mls/hr 09/13/24 15:31 09/14/24 09:11 Albuminar-25 Ivpb IV 09/16/24 15:30 100 mls/hr QDAY GHADA Administration Magnesium Hydroxide 30 ml 09/07/24 21:29 Milk Of Magnesia Susp 30 Ml Udc PO 10/07/24 21:28 QDAY PRN CONSTIPATION Protocol Metoclopramide HCl 10 mg 09/07/24 18:37 09/11/24 04:17 Metoclopramide Inj 5 Mg/Ml Vial 2 Ml IVP 10/07/24 18:36 10 mg Q6H PRN Administration NAUSEA OR VOMITING Protocol Morphine Sulfate 15 mg 09/12/24 23:00 09/14/24 09:10 Morphine Sulf 15 Mg Tabcr PO 09/17/24 22:59 15 mg Q12HR GHADA Administration Protocol Pantoprazole Sodium 40 mg 09/08/24 09:00 09/14/24 09:10 Pantoprazole Inj 40 Mg Vial IVP 07/29/25 08:59 40 mg QDAY GHADA Administration Rivaroxaban 20 mg 09/14/24 21:00 Rivaroxaban 10 Mg Tablet PO 10/08/24 20:59 WSUPPER [facility] Spironolactone 25 mg 09/13/24 15:45 09/14/24 09:25 Spironolactone 25 Mg Tablet PO 10/13/24 15:44 Not Given QDAY [facility] Plan Nneka Burciaga is a 74-year-old female with a history of enlarged CBD s/p ERCP on 07/2024, COPD on 2 L home O2, HFpEF (60% on 07/2024), a-fib on Xarelto, hypertension, and chronic pain on home morphine who is admitted for AHRF secondary to pneumonia secondary to possible aspiration event, currently hospitalized due to fatigue and feeling weak. #Acute on chronic hypoxic respiratory failure secondary to possible aspiration event #Right lower lobe pneumonia hospital-acquired #Lactic acidosis, resolved #fatigue, improving Patient was in normal state of health prior to admission and per son she had an episode of emesis when eating. Given acuity of patient's presentation and CXR findings, etiology may be due to aspiration. However, at bedside in ED vital monitor showed what appeared to be VT/VF and thus will refrain from QTc prolonging agents (i.e. doxycycline, metronidazole). In ED, she was saturating in mid-90s on 15 L oxymask. At baseline, she utilizes 2 L oxygen mostly when sleeping and longstanding history of smoking and likely has COPD for which can keep O2 titrated between 88-92%. 09/10/2024: Oxygen saturation at 94% on 4L NC. - CXR (09/12) shows significant Bilateral PNA ? Discontinue ceftriaxone and doxycycline. Plan: ?Continue Levaquin 750 mg once daily - Monitor for clinical deterioration. ? Blood cultures 09/07: NGTD ? Supplemental oxygen as needed ? Keep oxygen titrated between 88 and 92% #Chronic Leukocytosis, reactive vs inflammatory vs infective process Patient has a history of reactive and infectious etiologies for leukocytosis on previous admissions. WBC have been elevated >20 this admission, consistent with previous admissions. Peripheral smear done 07/2024 reported reactive leukocytosis with no morphological abnormality identified. - Peripheral smear pathology rechecked 09/07/2024 showing similar findings as month before of reactive leukocytosis with no morphological abnormality identified with Mild normocytic anemia without hemolysis. Plan, ? Sheet Rock Taper Helper suggested that most likely leukocytosis is reactive. No further investigation required. ?Monitor for fever spike, continuing antibiotic therapy #Failure to thrive ? Patient is not able to eat and drink by her own self Plan: ? Nurse helping with eating and drinking ? Blood sugar checks every 6 hourly ? Hypoglycemia protocol in place ? Aspiration precautions ? Discussion was performed today with patient's son regarding hospice #Liver cirrhosis possibly MASH #Biliary stricture s/p ERCP and stent placement #Transaminitis #Hyperbilirubinemia Previously admitted for enlarged CBD and underwent ERCP on 08/01/2024 for which a stent was placed. After procedure, she continued to have elevated T. bili and transaminitis and again presents with relatively similar values. ?CT abdomen pelvis showed prominent right base pneumonia. Significant hepatomegaly. Mild ascites. Edema around pancreas with 20 mm radiolucency in the pancreatic head with possible pseudocyst. Plan: ? Held Lasix due to soft blood pressure. Spironolactone was given. ? Continue albumin ? Outpatient GI follow-up #Atrial fibrillation on Xarelto, rate controlled In ED transformation manager revealed wide QRS complexes with heart rate above 100 bpm and concern for nonsustained VT. Cardiology evaluated patient and stated that patient likely has a rate-related BBB due to underlying conditions such as infection and/or dehydration. QRS complexes have similar morphology, however during VT they tend to have more uniform and narrower QRS complexes in comparison to BBB with a typical shape that is different from baseline. VT typically has a higher heart rate above 150 and is sustained or paroxysmal. At baseline, rhythm is a-fib and appearance of BBB on top of that may confuse the diagnosis with VT. Plan: ? Per cardiology recs, continue PO amiodarone 200 mg BID ? Continue treating underlying cause ? Close monitoring of hemodynamics ? Xarelto 20 mg p.o. at bedtime #HFpEF (60% on 07/2024) Follows Dr. Browning outpatient. Does not appear to be fluid overload on exam, no vascular congestion on CXR, and CBC shows what appears to be hemoconcentration given elevated WBC, hemoglobin, and platelets though may be reactive thrombocytosis. Additionally, presents with SAPPHIRE given previous creatinine of 0.7 and now presents with creatinine of 1.0 with BUN/creatinine ratio > 20. Thus, patient likely overall dehydrated and will hold diuretics at this time. 300 cc NS bolus, can give additional IVF if indicated. ? Cardiology following as above Plan: ?Continue with Lasix 40 mg IV daily, spironolactone 25 mg p.o. daily if blood pressure permissible ? Strict KEVIN's ? Fluid restriction #Possible pancreatic pseudocyst ? CT showed 20 mm radiolucency in the pancreatic head with possible pancreatic pseudocyst. ? Clinically stable, will monitor #RUE edema Patient does not have any complaints regarding upper extremities Venous Duplex Upper Extremity Negative for DVT ? IV diuretics #Chronic pain ? Gabapentin 100 mg p.o. three times daily ? Morphine ER 15 mg twice per day #COPD on 2 L home O2 Does not have any inhalers at home per son. ? Duonebs as needed Hospital management: Disposition: IV antibiotics, blood cultures NGTD. Discussion performed with patient's son regarding hospice. Diet: low sodium diet, dysphagia 2 diet Lines: PIV DVT prophylaxis: xarelto GI prophylaxis: pantoprazole CODE STATUS: DNR/DNI Plan of care discussed with attending physician, Dr. Heavenly Cardenas MD, PGY 3 Attending Provider Attestation/Addendum I, Seema Burdick, DO, attest that I was physically present for the pearson portions of the service and evaluated the patient with the resident and I reviewed and discussed the case with the resident and agree with the resident's findings and plans of care as documented above Patient seen and evaluated this AM. Patient continues to be very weak and requires assistance for feeding. She otherwise has no acute complaints. She continues to have mild b/l pitting edema in extremities. Contineu with IV abx and encourage patient to use IS.
--- NOTE | 2024-09-14 17:14 | ESPR_ITS ---
<Statement entered by Jason Browning MD - 09/14/24 19:03> The patient evaluated clinically appears to be about the same does not complain of any chest pain shortness still have poor appetite and abdominal discomfort appears to have jaundice A-fib is controlled does not complain of any cardiac limitations symptoms able to the patient with PGY 2 Dr. Christian Ford agree with the treatment plan recommendation as documented Documentation for date of: 09/14/24 Subjective Subjective Interval history: Patient is seen and examined at bedside No acute overnight events. Complaining of pain on the right side of abdomen Vitals are stable. Still in atrial fibrillation with controlled ventricular rate Labs done today showed downtrending WBC. Dr. Robison is consulted in view of persistent leukocytosis Recommended to continue amiodarone, albumin, Lasix, spironolactone Exam Vital Signs Temp Pulse Resp BP Pulse Ox O2 Del Method O2 Flow Rate 97.1 F 117 H 18 115/70 93 L Nasal Cannula 2 09/14/24 15:57 09/14/24 16:00 09/14/24 15:57 09/14/24 15:57 09/14/24 15:57 09/14/24 15:57 09/14/24 15:57 Narrative Exam General: Awake. HEENT: Normocephalic, atraumatic, mucous membranes moist. Heart: Regular rate and rhythm, no murmurs. No JVD Lungs: bronchial breath sounds heard in right lung Abdomen: Soft, nondistended, tenderness noted mainly in the right upper quadrant and right lower quadrant, positive bowel sounds. ?No guarding or rebound tenderness. Neurologic: Alert and oriented x3, no gross neurological deficit, and patient able to move all 4 extremities. Extremities: Bilateral pitting 2+ pedal edema noted Skin: No rash or ecchymoses. Patient's abdominal with the patient Objective Labs 09/14/24 04:20 09/14/24 04:20 Labs: Laboratory Results - last 24 hr 09/14/24 04:20 WBC 30.9 H D RBC 3.24 L Hgb 10.3 L Hct 29.8 L MCV 92 MCH 31.8 MCHC 34.6 RDW Std Deviation 67.6 H Plt Count 314 D Neut % (Auto) 83 H Lymph % (Auto) 5 L [place] % (Auto) 10 Eos % (Auto) 1 Baso % (Auto) 0 Neut # (Auto) 25.7 H Lymph # (Auto) 1.5 [place] # (Auto) 3.1 H Eos # (Auto) 0.2 Baso # (Auto) 0.1 Immature Gran # (Auto) 0.29 H Absolute Nucleated RBC 0.00 Immature Gran % 1 H Nucleated RBC % 0 Sodium 134 L Potassium 4.2 Chloride 99 Carbon Dioxide 23.1 Anion Gap 12 BUN 18 Creatinine 0.6 Estim Creat Clear Calc 84.8 eGFR > 60 BUN/Creatinine Ratio 30 H Glucose 59 L Calculated Osmolality 268 L Calcium 8.4 Corrected Calcium 9.8 Phosphorus 3.8 Magnesium 2.0 Total Bilirubin 2.0 H AST 120 H ALT 77 H Alkaline Phosphatase 307 H D Total Protein 6.0 Albumin 2.3 L Globulin 3.7 H Albumin/Globulin Ratio 0.6 L ABG Interpretation ABG results: 09/07/24 14:37 ABG pH 7.44 ABG pCO2 46 ABG pO2 65 L ABG HCO3 31 H ABG O2 Saturation 93 ABG Base Excess 6 H Quality Measures Quality Measures VTE prophylaxis Advance care planning discussed with:: patient Assessment & Plan Assessment Current Active Medications: Generic Name Dose Route Start Last Admin Trade Name Freq PRN Reason Stop Dose Admin Acetaminophen 650 mg 09/07/24 18:37 Acetaminophen 325 Mg Tablet PO 10/07/24 18:36 Q6H PRN PAIN OR FEVER > 100.4 Albuterol/Ipratropium 3 ml 09/13/24 15:00 09/14/24 15:36 Albuterol/Ipratropium (Duoneb) Rt Lauren 3 Ml Nebu INH 10/13/24 14:59 3 ml Q4HRRT GHADA Administration Amiodarone HCl 200 mg 09/08/24 19:00 09/14/24 09:26 Amiodarone Hcl 200 Mg Tablet PO 10/08/24 18:59 200 mg BID GHADA Administration Benzonatate 200 mg 09/12/24 09:27 Benzonatate 100 Mg Capsule PO 10/12/24 09:26 Q8HR PRN COUGH Protocol Bisacodyl 10 mg 09/07/24 21:29 Bisacodyl 10 Mg Supp [place] 10/07/24 21:28 QDAY PRN Constipation Protocol Collagenase 0 gm 09/11/24 21:00 09/13/24 21:12 Collagenase Oint 30 Gm Tube TOP 10/11/24 20:59 1 applicatio HS GHADA Administration Dextrose 25 ml 09/14/24 09:32 Dextrose 50%-Water Inj 50 Ml Syringe IV 10/14/24 09:31 Q15MIN PRN BG 50-70 responsive npo pt Dextrose 50 ml 09/14/24 09:32 Dextrose 50%-Water Inj 50 Ml Syringe IV 10/14/24 09:31 Q15MIN PRN BG <50 OR BG <70 & pt unresponsive Furosemide 40 mg 09/15/24 10:30 Furosemide Inj 10 Mg/Ml 4ml Vial IVP 10/13/24 14:59 QDAY@1030 GHADA Gabapentin 100 mg 09/07/24 22:00 09/14/24 13:46 Gabapentin 100 Mg Capsule PO 10/07/24 21:59 100 mg TID GHADA Administration Glucagon 1 mg 09/14/24 09:32 Glucagon Inj 1 Mg Vial IM Q15MIN PRN BG <70, and no IV access Levofloxacin/Dextrose 750 mg in 150 mls @ 100 mls/hr 09/13/24 09:30 09/14/24 09:51 Levaquin Ivpb IV 09/20/24 09:29 100 mls/hr QDAY GHADA Administration Albumin Human 25 gm in 100 mls @ 100 mls/hr 09/13/24 15:31 09/14/24 09:11 Albuminar-25 Ivpb IV 09/16/24 15:30 100 mls/hr QDAY GHADA Administration Magnesium Hydroxide 30 ml 09/07/24 21:29 Milk Of Magnesia Susp 30 Ml Udc PO 10/07/24 21:28 QDAY PRN CONSTIPATION Protocol Metoclopramide HCl 10 mg 09/07/24 18:37 09/11/24 04:17 Metoclopramide Inj 5 Mg/Ml Vial 2 Ml IVP 10/07/24 18:36 10 mg Q6H PRN Administration NAUSEA OR VOMITING Protocol Morphine Sulfate 15 mg 09/12/24 23:00 09/14/24 09:10 Morphine Sulf 15 Mg Tabcr PO 09/17/24 22:59 15 mg Q12HR GHADA Administration Protocol Pantoprazole Sodium 40 mg 09/08/24 09:00 09/14/24 09:10 Pantoprazole Inj 40 Mg Vial IVP 10/08/24 08:59 40 mg QDAY GHADA Administration Rivaroxaban 20 mg 09/14/24 21:00 Rivaroxaban 10 Mg Tablet PO 10/08/24 20:59 [facility] Spironolactone 25 mg 09/13/24 15:45 09/14/24 09:25 Spironolactone 25 Mg Tablet PO 10/13/24 15:44 Not Given QDAY GHADA Plan 74-year-old female with a past medical history of HFpEF with an EF of 60 to 65%, paroxysmal atrial fibrillation on anticoagulation, essential hypertension, recent admission with enlarged CBD status post ERCP in July 2024, obesity, hypothyroidism presented to the emergency department for further evaluation of hypoxia with questionable aspiration PNA. # Atrial fibrillation with RVR ---> CVR # Wide-complex tachycardia - self-resolved # HFpEF with an EF of 60 to 65% # Hypoalbuminemia - Patient presented to hospital with aspiration pneumonia. Primary team did start the patient on antibiotics. - Patient had history of atrial fibrillation with rapid ventricular rate and is on carvedilol 3.125 Mg twice daily, amiodarone 200 Mg twice daily, rivaroxaban 20 Mg p.o. at bedtime - Regarding the episode of wide complex tachycardia at 110 bpm unlikely VT but could be NSVT. Reviewed the previous EKGs and patient probably has rate related incomplete bundle branch block which could also be the differential. - Initially started on amiodarone bolus as well as drip and later changed to oral medication - Atrial fibrillation with RVR episode mostly secondary to SAPPHIRE and severe dehydration in the setting of possible aspiration pneumonia and poor oral intake. - Echo on 07/2024- normal-sized left ventricle with normal left wall thickness wall motion ejection fraction of approximately 60%. Mildly dilated left atrium. Plan - Patient does not appear to be in acute heart failure as of now but has anasarca - Recommended to continue amiodarone 200 Mg p.o. twice daily for now and rivaroxaban 20 Mg p.o. at bedtime - Started on albumin 25 g daily, Lasix 40 Mg IV daily and resumed her home spironolactone 25 mg p.o. 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 Thank you for the consult and allowing me to participate in the care of the patient. Cardiology will continue to follow. Patient plan of care was discussed with Business Education Professor Dr. Nam Ashley, PGY2
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
[2024-09-14] MEDS: RIVAROXABAN 10 MG TABLET 20 MG PO (20:39)
[2024-09-14] MEDS: COLLAGENASE OINT 30 GM TUBE TOP (21:40)
[2024-09-15] VITALS (22 sets, daily range): BP systolic 96–112; BP diastolic 50–68; PULSE 94–155; RESP 15–30; TEMP 36.1–36.6; O2SAT 90–100
[2024-09-15] MEDS: ALBUTEROL/IPRATROPIUM (Duoneb) RT SOL 3 ML NEBU INH ×6 (02:37→23:15)
[2024-09-15 03:45] LABS: Collection Type, Urine Clean Catch
[2024-09-15 03:53] LABS: Bilirubin,Urine 1+ (Negative); Blood,Urine Trace-Intact (Negative); Clarity,Urine Clear (Clear/Hazy); Color,Urine Drk Orange (Lt Yel-Yel); Glucose, Urine Negative (Negative); Ketones,Urine Negative (Negative); Leukocyte Esterase,Urine Trace (Negative); Nitrite,Urine Negative (Negative); PH,Urine 6.0 (5.0-7.0); Protein,Urine 1+ (Neg - Trace); Specific Gravity,Urine 1.025 (1.001-1.035); Urobilinogen,Urine 1.0 mg/dL (0.0-1.0)
[2024-09-15 04:04] LABS: Budding Yeast,Urine Present; Culture Indicated,Urine Yes; RBC,Urine 6 /hpf (0-3); Squamous Epithelial Cell,Urine 4 /hpf (0-5); WBC,Urine 11 /hpf (0-5)
[2024-09-15 05:49] LABS: Basophils # (Auto) 0.1 Thou/mm3 (0.0-0.2); Basophils % (Auto) 0 % (0-2.5); Eosinophils # (Auto) 0.1 Thou/mm3 (0.0-0.5); Eosinophils % (Auto) 0 % (0-10); Hematocrit 30.1 % (36.0-46.0); Hemoglobin 10.2 g/dL (12.0-16.0); Immature Granulocytes Auto 0.36 Thou/mm3 (0.00-0.00); Lymphocytes # (Auto) 1.3 Thou/mm3 (1.0-4.8); Lymphocytes % (Auto) 5 % (10-50); Mean Corpuscular HGB Conc 33.9 g/dl (31.0-37.0); Mean Corpuscular Hemoglobin 31.9 pg (25.0-35.0); Mean Corpuscular Volume 94 fL (80-100); Monocytes # (Auto) 2.8 Thou/mm3 (0.0-0.8); Monocytes % (Auto) 10 % (0-12); Neutrophils # (Auto) 24.7 Thou/mm3 (1.8-7.7); Neutrophils % (Auto) 84 % (37-80); Nucleated Red Blood Cell # 0.00 Thou/mm3 (0.00-0.00); Nucleated Red Blood Cell % 0 /100 WBC (0); Platelet Count 276 Thou/mm3 (140-440); RDW Standard Deviation 69.0 fL (36.4-46.3); Red Blood Count 3.20 Miln/mm3 (4.00-5.20); White Blood Count 29.4 Thou/mm3 (3.6-11.0)
[2024-09-15] MEDS: GABAPENTIN 100 MG CAPSULE PO ×2 (05:50→15:15)
[2024-09-15 06:28] LABS: Alanine Aminotransferase 74 U/L (10-49); Albumin, Serum 2.5 gm/dL (3.4-4.8); Albumin/Globulin Ratio 0.7 (1.2-2.2); Alkaline Phosphatase 298 U/L (46-116); Anion Gap 10 (7-16); Aspartate Amino Transferase 115 U/L (0-34); BUN/Creatinine Ratio 30 Ratio (12-20); Bilirubin,Total 2.6 mg/dL (0.3-1.2); Blood Urea Nitrogen 21 mg/dL (9-23); Calcium 8.4 mg/dL (8.3-10.6); Calcium (Corrected) 9.6 mg/dL (8.5-10.1); Carbon Dioxide 25.2 mMol/L (20.0-31.0); Chloride 98 mMol/L (98-107); Creatinine (Component) 0.7 mg/dL (0.6-1.3); Estimated Creatinine Clearance 72.5 mL/min (>60); Globulin 3.6 gm/dL (2.3-3.5); Glucose 82 mg/dL (74-106); Magnesium 1.9 mg/dL (1.6-2.6); Osmolality,Calculated 268 (275-295); Phosphorous 3.1 mg/dL (2.4-5.1); Potassium 4.0 mMol/L (3.4-5.1); Sodium 133 mMol/L (136-145); Total Protein 6.1 gm/dL (5.7-8.2); eGFR > 60 See Note
[2024-09-15] MEDS: SPIRONOLACTONE 25 MG TABLET PO (08:24)
[2024-09-15] MEDS: Morphine Sulf 15 MG TABCR PO (08:26)
[2024-09-15] MEDS: LEVOFLOXACIN/D5W 750MG IVPB 750 MG/150 ML BAG 100 MG IV (08:27)
[2024-09-15] MEDS: AMIODARONE HCL 200 MG TABLET PO (08:27)
[2024-09-15] MEDS: ALBUMIN HUMAN 25% IVPB 25 GM/100 ML BTL IV (10:46)
[2024-09-15] MEDS: FUROSEMIDE INJ 10 MG/ML 4ML VIAL 40 MG IVP (10:46)
[2024-09-15] MEDS: METOCLOPRAMIDE INJ 5 MG/ML VIAL 2 ML 10 MG IVP (10:47)
[2024-09-15 12:12] LABS: Sed Rate (ESR) 83 mm/hr (0-30)
[2024-09-15 12:29] LABS: Bilirubin,Direct 1.7 mg/dL (0.0-0.3); Lipase 24 U/L (12-53)
[2024-09-15 12:45] LABS: C-Reactive Protein 10.4 mg/dL (0.0-0.9)
--- NOTE | 2024-09-15 14:37 | XR_ITS ---
Examination: RADHA, hepatobiliary radioisotope scan Date and time of exam: September 17, 2024 0809 hours INDICATIONS: Epigastric pain with eating fever and elevated bilirubin months Technique: 6.2 mCi of 99M Hepatolite administered. Serial imaging then obtained from immediate through 60 minutes. Findings: Radioisotope activity within the liver is reasonably homogenous. The common bile duct small bowel activity noted Impression: No gallbladder activity consistent with patient's history cholecystectomy No extra hepatic biliary tract obstruction, contrast in the common bile duct and small bowel
--- NOTE | 2024-09-15 15:14 | ESPR_ITS ---
Documentation for date of: 09/15/24 Subjective Subjective Interval history: No overnight events. Patient seen examined at bedside, complains of weakness, epigastric pain, stomachache when eating. Denies shortness of breath, chest pain, fevers. 20 mm pancreatic pseudocyst on CT imaging, with pancreatic edema. Dr. Carrillo consulted, had placed biliary stent in July 2024. Made patient n.p.o., ordered lipase inflammatory markers, pain meds. Gentle IVF. Exam Vital Signs Temp Pulse Resp BP Pulse Ox O2 Del Method O2 Flow Rate 97.1 F 114 H 30 H 108/68 91 L Nasal Cannula 4 09/15/24 11:35 09/15/24 14:53 09/15/24 14:53 09/15/24 11:35 09/15/24 14:53 09/15/24 11:35 09/15/24 14:53 Narrative Exam General: Awake. HEENT: Normocephalic, atraumatic, mucous membranes moist. Heart: Regular rate and rhythm, no murmurs. No JVD Lungs: Lungs clear to auscultation bilaterally Abdomen: Soft, nondistended, epigastric tenderness. ?No guarding or rebound tenderness. Neurologic: Alert and oriented x3, no gross neurological deficit, and patient able to move all 4 extremities. Generalized weakness. Extremities: Bilateral pitting 2+ pedal edema noted Skin: No rash or ecchymoses. Objective Labs 09/16/24 04:46 09/16/24 04:46 Labs: Laboratory Results - last 24 hr 09/15/24 09/15/24 03:23 05:10 WBC 29.4 H RBC 3.20 L Hgb 10.2 L Hct 30.1 L MCV 94 MCH 31.9 MCHC 33.9 RDW Std Deviation 69.0 H Plt Count 276 D Neut % (Auto) 84 H Lymph % (Auto) 5 L [place] % (Auto) 10 Eos % (Auto) 0 Baso % (Auto) 0 Neut # (Auto) 24.7 H Lymph # (Auto) 1.3 [place] # (Auto) 2.8 H Eos # (Auto) 0.1 Baso # (Auto) 0.1 Immature Gran # (Auto) 0.36 H Absolute Nucleated RBC 0.00 Immature Gran % 1 H Nucleated RBC % 0 ESR 83 H Sodium 133 L Potassium 4.0 Chloride 98 Carbon Dioxide 25.2 Anion Gap 10 BUN 21 Creatinine 0.7 Estim Creat Clear Calc 72.5 eGFR > 60 BUN/Creatinine Ratio 30 H Glucose 82 Calculated Osmolality 268 L Calcium 8.4 Corrected Calcium 9.6 Phosphorus 3.1 Magnesium 1.9 Total Bilirubin 2.6 H D Direct Bilirubin 1.7 H AST 115 H ALT 74 H Alkaline Phosphatase 298 H C-Reactive Prot, Quant 10.4 H Total Protein 6.1 Albumin 2.5 L Globulin 3.6 H Albumin/Globulin Ratio 0.7 L Lipase 24 Ur Collection Type Clean Catch Urine Color Drk [place] A Urine Clarity Clear Urine pH 6.0 Ur Specific [place] 1.025 Urine Protein 1+ A Urine Glucose (UA) Negative Urine Ketones Negative Urine Blood Trace-Intact Urine Nitrite Negative Urine Bilirubin 1+ A Urine Urobilinogen (Auto) 1.0 Ur Leukocyte Esterase Trace Urine RBC 6 H Urine WBC 11 H Ur Squamous Epith Cells 4 Urine Bacteria None Urine Yeast (Budding) Present A Ur Culture Indicated? Yes ABG Interpretation ABG results: 09/07/24 14:37 ABG pH 7.44 ABG pCO2 46 ABG pO2 65 L ABG HCO3 31 H ABG O2 Saturation 93 ABG Base Excess 6 H Quality Measures Quality Measures VTE prophylaxis Advance care planning discussed with:: patient and child Assessment & Plan Assessment Current Active Medications: Generic Name Dose Route Start Last Admin Trade Name Freq PRN Reason Stop Dose Admin Acetaminophen 650 mg 09/07/24 18:37 Acetaminophen 325 Mg Tablet PO 10/07/24 18:36 Q6H PRN PAIN OR FEVER > 100.4 Albuterol/Ipratropium 3 ml 09/13/24 15:00 09/15/24 14:52 Albuterol/Ipratropium (Duoneb) Rt Lauren 3 Ml Nebu INH 10/13/24 14:59 3 ml Q4HRRT GHADA Administration Amiodarone HCl 200 mg 09/08/24 19:00 09/15/24 08:27 Amiodarone Hcl 200 Mg Tablet PO 10/08/24 18:59 200 mg BID GHADA Administration Benzonatate 200 mg 09/12/24 09:27 Benzonatate 100 Mg Capsule PO 10/12/24 09:26 Q8HR PRN COUGH Protocol Bisacodyl 10 mg 09/07/24 21:29 Bisacodyl 10 Mg Supp [place] 10/07/24 21:28 QDAY PRN Constipation Protocol Collagenase 0 gm 09/11/24 21:00 09/14/24 21:40 Collagenase Oint 30 Gm Tube TOP 10/11/24 20:59 1 applicatio HS GHADA Administration Dextrose 25 ml 09/14/24 09:32 Dextrose 50%-Water Inj 50 Ml Syringe IV 10/14/24 09:31 Q15MIN PRN BG 50-70 responsive npo pt Dextrose 50 ml 09/14/24 09:32 Dextrose 50%-Water Inj 50 Ml Syringe IV 10/14/24 09:31 Q15MIN PRN BG <50 OR BG <70 & pt unresponsive Enoxaparin Sodium 40 mg 09/15/24 15:15 Enoxaparin Sod Inj 40 Mg/0.4 Ml Syringe SC 09/29/24 15:14 QDAY GHADA Gabapentin 100 mg 09/07/24 22:00 09/15/24 05:50 Gabapentin 100 Mg Capsule PO 10/07/24 21:59 100 mg TID GHADA Administration Glucagon 1 mg 09/14/24 09:32 Glucagon Inj 1 Mg Vial IM Q15MIN PRN BG <70, and no IV access Hydromorphone HCl 0.5 mg 09/15/24 14:47 Hydromorphone Inj 2 Mg/Ml Vial IVP 09/20/24 14:46 Q4HR PRN PAIN SCALE 4-10(Mod-Sev Levofloxacin/Dextrose 750 mg in 150 mls @ 100 mls/hr 09/13/24 09:30 09/15/24 08:27 Levaquin Ivpb IV 09/20/24 09:29 100 mls/hr QDAY GHADA Administration Albumin Human 25 gm in 100 mls @ 100 mls/hr 09/13/24 15:31 09/15/24 10:46 Albuminar-25 Ivpb IV 09/16/24 15:30 100 mls/hr QDAY GHADA Administration Lactated Ringer's 1,000 mls @ 60 mls/hr 09/15/24 14:48 Lactated Ringers IV 09/16/24 07:27 .[id number] GHADA Magnesium Hydroxide 30 ml 09/07/24 21:29 Milk Of Magnesia Susp 30 Ml Udc PO 10/07/24 21:28 QDAY PRN CONSTIPATION Protocol Metoclopramide HCl 10 mg 09/07/24 18:37 09/15/24 10:47 Metoclopramide Inj 5 Mg/Ml Vial 2 Ml IVP 10/07/24 18:36 10 mg Q6H PRN Administration NAUSEA OR VOMITING Protocol Morphine Sulfate 15 mg 09/12/24 23:00 09/15/24 08:26 Morphine Sulf 15 Mg Tabcr PO 09/17/24 22:59 15 mg Q12HR GHADA Administration Protocol Ondansetron HCl 4 mg 09/15/24 15:01 Ondansetron Inj 2 Mg/Ml Inj 2 Ml IVP 10/15/24 15:00 Q8HR PRN NAUSEA OR VOMITING Protocol Pantoprazole Sodium 40 mg 09/08/24 09:00 09/15/24 08:27 Pantoprazole Inj 40 Mg Vial IVP 10/08/24 08:59 40 mg QDAY GHADA Administration Spironolactone 25 mg 09/13/24 15:45 09/15/24 08:24 Spironolactone 25 Mg Tablet PO 10/13/24 15:44 25 mg QDAY GHADA Administration Plan Nneka Burciaga is a 74-year-old female with a history of enlarged CBD s/p ERCP on 07/2024, COPD on 2 L home O2, HFpEF (60% on 07/2024), a-fib on Xarelto, hypertension, and chronic pain on home morphine who is admitted for AHRF secondary to pneumonia secondary to possible aspiration event, currently hospitalized due to fatigue and feeling weak. #Pancreatitis Patient now complains of postprandial pain, epigastric tenderness, CT scan showed possible 20 mm pancreatic pseudocyst with surrounding pancreatic edema. Lipase WNL. Dr. Carrillo placed biliary stent in July 2024, was consulted. Will see patient Monday (09/17). ESR 83, CRP 10.4. Plan: - Dr. Carrillo consulted, appreciate recommendations - N.p.o. - [place] for pain control - Gentle IVF: 60 mL/h LR - Patient antibiotics changed to cefepime for broader coverage - Hold diuretics #Acute on chronic hypoxic respiratory failure secondary to possible aspiration event #Right lower lobe pneumonia hospital-acquired #Lactic acidosis, resolved #fatigue, improving Patient was in normal state of health prior to admission and per son she had an episode of emesis when eating. Given acuity of patient's presentation and CXR findings, etiology may be due to aspiration. However, at bedside in ED vital monitor showed what appeared to be VT/VF and thus will refrain from QTc prolonging agents (i.e. doxycycline, metronidazole). In ED, she was saturating in mid-90s on 15 L oxymask. At baseline, she utilizes 2 L oxygen mostly when sleeping and longstanding history of smoking and likely has COPD for which can keep O2 titrated between 88-92%. 09/10/2024: Oxygen saturation at 94% on 4L NC. - CXR (09/12) shows significant Bilateral PNA ? Discontinue ceftriaxone and doxycycline. Plan: ? Patient changed to cefepime - Monitor for clinical deterioration. ? Blood cultures 09/07: NGTD ? Supplemental oxygen as needed ? Keep oxygen titrated between 88 and 92% #Chronic Leukocytosis, reactive vs inflammatory vs infective process Patient has a history of reactive and infectious etiologies for leukocytosis on previous admissions. WBC have been elevated >20 this admission, consistent with previous admissions. Peripheral smear done 07/2024 reported reactive leukocytosis with no morphological abnormality identified. - Peripheral smear pathology rechecked 09/07/2024 showing similar findings as month before of reactive leukocytosis with no morphological abnormality identified with Mild normocytic anemia without hemolysis. Plan, ? Rubber Block Layer suggested that most likely leukocytosis is reactive. No further investigation required. ?Monitor for fever spike, continuing antibiotic therapy #Failure to thrive ? Patient is not able to eat and drink by her own self Plan: ? Nurse helping with eating and drinking ? Blood sugar checks every 6 hourly ? Hypoglycemia protocol in place ? Aspiration precautions ? Discussion was performed today with patient's son regarding hospice #Liver cirrhosis possibly MASH #Biliary stricture s/p ERCP and stent placement #Transaminitis #Hyperbilirubinemia Previously admitted for enlarged CBD and underwent ERCP on 08/01/2024 for which a stent was placed. After procedure, she continued to have elevated T. bili and transaminitis and again presents with relatively similar values. ?CT abdomen pelvis showed prominent right base pneumonia. Significant hepatomegaly. Mild ascites. Edema around pancreas with 20 mm radiolucency in the pancreatic head with possible pseudocyst. Plan: ? Held Lasix due to soft blood pressure. Spironolactone was given. ? Continue albumin ? Outpatient GI follow-up #Atrial fibrillation on Xarelto, rate controlled In ED clinical research monitor revealed wide QRS complexes with heart rate above 100 bpm and concern for nonsustained VT. Cardiology evaluated patient and stated that patient likely has a rate-related BBB due to underlying conditions such as infection and/or dehydration. QRS complexes have similar morphology, however during VT they tend to have more uniform and narrower QRS complexes in comparison to BBB with a typical shape that is different from baseline. VT typically has a higher heart rate above 150 and is sustained or paroxysmal. At baseline, rhythm is a-fib and appearance of BBB on top of that may confuse the diagnosis with VT. Plan: ? Per cardiology recs, continue PO amiodarone 200 mg BID ? Continue treating underlying cause ? Close monitoring of hemodynamics ? Lovenox 40 mg subcu daily #HFpEF (60% on 07/2024) Follows Dr. Browning outpatient. Does not appear to be fluid overload on exam, no vascular congestion on CXR, and CBC shows what appears to be hemoconcentration given elevated WBC, hemoglobin, and platelets though may be reactive thrombocytosis. Additionally, presents with SAPPHIRE given previous creatinine of 0.7 and now presents with creatinine of 1.0 with BUN/creatinine ratio > 20. Thus, patient likely overall dehydrated and will hold diuretics at this time. 300 cc NS bolus, can give additional IVF if indicated. ? Cardiology following as above Plan: ? Diuretics currently held ? Strict KEVIN's ? Fluid restriction #RUE edema Patient does not have any complaints regarding upper extremities Venous Duplex Upper Extremity Negative for DVT -Diuretics held #Chronic pain ? Gabapentin 100 mg p.o. three times daily ? Morphine ER 15 mg twice per day #COPD on 2 L home O2 Does not have any inhalers at home per son. ? Duonebs as needed Hospital management: Disposition: IV antibiotics, blood cultures NGTD. Discussion performed with patient's son regarding hospice. Diet: low sodium diet, dysphagia 2 diet Lines: PIV DVT prophylaxis: Lovenox GI prophylaxis: pantoprazole CODE STATUS: DNR/DNI Plan of care discussed with attending physician, Dr. Heavenly Barcenas MD PGY?2 Attending Provider Attestation/Addendum Keyshawn, Seema Burdick, , attest that I was physically present for the [place]son portions of the service and evaluated the patient with the resident and I reviewed and discussed the case with the resident and agree with the resident's findings and plans of care as documented above Patient seen and eval this a.m. She reports having a lot of abdominal pain after eating a few bites of her food. She states that the pain is worse in her epigastric region. She also endorsed a lot of nausea after eating, but did not have the symptoms this morning prior to eating. Bilirubin noted to be uptrending and recent CT abdomen pelvis that showed possible development of early pseudocyst and edema around the pancreas. Abdomen was also tender to palpation in the epigastric region. There is mild distention of the abdomen. Due to these findings and uptrending bilirubin and alk phos, there is concern for possible development of pancreatitis. Contacted GI who would place a stent recently and ordered HIDA scan and MRCP to rule out any blockage of the stent. Will place patient n.p.o. and give IV fluids. Patient does take morphine at home, will switch to IV pain control. In the afternoon, received call that patient continued to be nauseous despite receiving Reglan. A KUB was done showing significant dilatation of the colon possible moderate colonic ileus and large amounts of stool. However, due to concern for possible SBO on initial read, case was discussed with surgeon who is also concern for possible volvulus. Recommended barium enema study. Will place NG tube due to patient's persistent nausea and vomiting. Will follow-up with studies. Monitor volume status closely due to IV fluids.
[2024-09-15] MEDS: ENOXAPARIN SOD INJ 40 MG/0.4 ML SYRINGE SC (15:15)
[2024-09-15] MEDS: ONDANSETRON INJ 2 MG/ML INJ 2 ML 4 MG IVP (15:15)
[2024-09-15] MEDS: RINGERS LACTATED 1000 ML 1,000 ML 60 ML IV (15:16)
--- NOTE | 2024-09-15 15:46 | ESPR_ITS ---
<Statement entered by Jason Browning MD - 09/18/24 00:08> I personally examined the patient with PGY 2 Dr. Osborne patient is not doing that well still having some nausea abdominal pain will probably recommend further evaluation by maintenance craftsman cardiac lutz remains stable but still have a lot of GI symptoms Dr. Carrillo might be seeing the patient also possible MRCP evaluate the patient agree with the treatment plan recommendation as documented by Dr. Osborne PGY 2 Documentation for date of: 09/15/24 Subjective Subjective Interval history: Pt is seen at bedside, Pt appears to be in somewhat distress. Pt complains of constant nausea but denies vomiting episodes. Pt states she is unable to tolerate any food due to nausea. Pt denies any SOB, chest pain or palpitations, she is significant abdominal pain. WBC is slowly down trending,, ESR 83, total billirubin 2.6, direct sondra 1.7, AST 115, ALT 74, CRP 10.4, lipase is 24. Pt denies any cardiac complaints. Primary team has initiated hospice discussion with son, decision is pending. Exam Vital Signs Temp Pulse Resp BP Pulse Ox O2 Del Method O2 Flow Rate 97.1 F 114 H 30 H 108/68 91 L Nasal Cannula 4 09/15/24 11:35 09/15/24 14:53 09/15/24 14:53 09/15/24 11:35 09/15/24 14:53 09/15/24 11:35 09/15/24 14:53 Narrative Exam GENERAL: A&Ox3 . Awake, in some distress due to pain and nausea NEURO: no focal neurological deficits HEENT: Atraumatic, Normocephalic. mucous membranes moist. Eyes open, symmetrical, & clear HEART: Normal Heart Sounds LUNGS: Clear to auscultation with no wheezing or crackles. ABDOMEN: soft, non-distended, non-tender, bowel sounds heard, no guarding or rebound tenderness SKIN: No Rash or ecchymoses EXTREMITIES: 1+ pitting edema noted bilaterally in LE, tenderness, able to move all 4 extremities, pedal pulses palpated Objective Labs 09/15/24 05:10 09/15/24 05:10 Labs: Laboratory Results - last 24 hr 09/15/24 09/15/24 03:23 05:10 WBC 29.4 H RBC 3.20 L Hgb 10.2 L Hct 30.1 L MCV 94 MCH 31.9 MCHC 33.9 RDW Std Deviation 69.0 H Plt Count 276 D Neut % (Auto) 84 H Lymph % (Auto) 5 L [place] % (Auto) 10 Eos % (Auto) 0 Baso % (Auto) 0 Neut # (Auto) 24.7 H Lymph # (Auto) 1.3 [place] # (Auto) 2.8 H Eos # (Auto) 0.1 Baso # (Auto) 0.1 Immature Gran # (Auto) 0.36 H Absolute Nucleated RBC 0.00 Immature Gran % 1 H Nucleated RBC % 0 ESR 83 H Sodium 133 L Potassium 4.0 Chloride 98 Carbon Dioxide 25.2 Anion Gap 10 BUN 21 Creatinine 0.7 Estim Creat Clear Calc 72.5 eGFR > 60 BUN/Creatinine Ratio 30 H Glucose 82 Calculated Osmolality 268 L Calcium 8.4 Corrected Calcium 9.6 Phosphorus 3.1 Magnesium 1.9 Total Bilirubin 2.6 H D Direct Bilirubin 1.7 H AST 115 H ALT 74 H Alkaline Phosphatase 298 H C-Reactive Prot, Quant 10.4 H Total Protein 6.1 Albumin 2.5 L Globulin 3.6 H Albumin/Globulin Ratio 0.7 L Lipase 24 Ur Collection Type Clean Catch Urine Color Drk Love A Urine Clarity Clear Urine pH 6.0 Ur Specific [place] 1.025 Urine Protein 1+ A Urine Glucose (UA) Negative Urine Ketones Negative Urine Blood Trace-Intact Urine Nitrite Negative Urine Bilirubin 1+ A Urine Urobilinogen (Auto) 1.0 Ur Leukocyte Esterase Trace Urine RBC 6 H Urine WBC 11 H Ur Squamous Epith Cells 4 Urine Bacteria None Urine Yeast (Budding) Present A Ur Culture Indicated? Yes ABG Interpretation ABG results: 09/07/24 14:37 ABG pH 7.44 ABG pCO2 46 ABG pO2 65 L ABG HCO3 31 H ABG O2 Saturation 93 ABG Base Excess 6 H Quality Measures Quality Measures VTE prophylaxis Advance care planning discussed with:: other Assessment & Plan Assessment Current Active Medications: Generic Name Dose Route Start Last Admin Trade Name Freq PRN Reason Stop Dose Admin Acetaminophen 650 mg 09/07/24 18:37 Acetaminophen 325 Mg Tablet PO 10/07/24 18:36 Q6H PRN PAIN OR FEVER > 100.4 Albuterol/Ipratropium 3 ml 09/13/24 15:00 09/15/24 14:52 Albuterol/Ipratropium (Duoneb) Rt Lauren 3 Ml Nebu INH 10/13/24 14:59 3 ml Q4HRRT GHADA Administration Amiodarone HCl 200 mg 09/08/24 19:00 09/15/24 08:27 Amiodarone Hcl 200 Mg Tablet PO 10/08/24 18:59 200 mg BID GHADA Administration Benzonatate 200 mg 09/12/24 09:27 Benzonatate 100 Mg Capsule PO 10/12/24 09:26 Q8HR PRN COUGH Protocol Bisacodyl 10 mg 09/07/24 21:29 Bisacodyl 10 Mg Supp [place] 10/07/24 21:28 QDAY PRN Constipation Protocol Collagenase 0 gm 09/11/24 21:00 09/14/24 21:40 Collagenase Oint 30 Gm Tube TOP 10/11/24 20:59 1 applicatio HS GHADA Administration Dextrose 25 ml 09/14/24 09:32 Dextrose 50%-Water Inj 50 Ml Syringe IV 10/14/24 09:31 Q15MIN PRN BG 50-70 responsive npo pt Dextrose 50 ml 09/14/24 09:32 Dextrose 50%-Water Inj 50 Ml Syringe IV 10/14/24 09:31 Q15MIN PRN BG <50 OR BG <70 & pt unresponsive Enoxaparin Sodium 40 mg 09/15/24 15:15 09/15/24 15:15 Enoxaparin Sod Inj 40 Mg/0.4 Ml Syringe SC 09/29/24 15:14 40 mg QDAY GHADA Administration Gabapentin 100 mg 09/07/24 22:00 09/15/24 15:15 Gabapentin 100 Mg Capsule PO 10/07/24 21:59 100 mg TID GHADA Administration Glucagon 1 mg 09/14/24 09:32 Glucagon Inj 1 Mg Vial IM Q15MIN PRN BG <70, and no IV access Hydromorphone HCl 0.5 mg 09/15/24 14:47 Hydromorphone Inj 2 Mg/Ml Vial IVP 09/20/24 14:46 Q4HR PRN PAIN SCALE 4-10(Mod-Sev Levofloxacin/Dextrose 750 mg in 150 mls @ 100 mls/hr 09/13/24 09:30 09/15/24 08:27 Levaquin Ivpb IV 09/20/24 09:29 100 mls/hr QDAY GHADA Administration Albumin Human 25 gm in 100 mls @ 100 mls/hr 09/13/24 15:31 09/15/24 10:46 Albuminar-25 Ivpb IV 09/16/24 15:30 100 mls/hr QDAY GHADA Administration Lactated Ringer's 1,000 mls @ 60 mls/hr 09/15/24 14:48 09/15/24 15:16 Lactated Ringers IV 09/16/24 07:27 60 mls/hr .[id number] GHADA Administration Magnesium Hydroxide 30 ml 09/07/24 21:29 Milk Of Magnesia Susp 30 Ml Udc PO 10/07/24 21:28 QDAY PRN CONSTIPATION Protocol Metoclopramide HCl 10 mg 09/07/24 18:37 09/15/24 10:47 Metoclopramide Inj 5 Mg/Ml Vial 2 Ml IVP 10/07/24 18:36 10 mg Q6H PRN Administration NAUSEA OR VOMITING Protocol Morphine Sulfate 15 mg 09/12/24 23:00 09/15/24 08:26 Morphine Sulf 15 Mg Tabcr PO 09/17/24 22:59 15 mg Q12HR GHADA Administration Protocol Ondansetron HCl 4 mg 09/15/24 15:01 09/15/24 15:15 Ondansetron Inj 2 Mg/Ml Inj 2 Ml IVP 10/15/24 15:00 4 mg Q8HR PRN Administration NAUSEA OR VOMITING Protocol Pantoprazole Sodium 40 mg 09/08/24 09:00 09/15/24 08:27 Pantoprazole Inj 40 Mg Vial IVP 10/08/24 08:59 40 mg QDAY GHADA Administration Spironolactone 25 mg 09/13/24 15:45 09/15/24 08:24 Spironolactone 25 Mg Tablet PO 10/13/24 15:44 25 mg QDAY GHADA Administration Plan 74-year-old female with a past medical history of HFpEF with an EF of 60 to 65%, paroxysmal atrial fibrillation on anticoagulation, essential hypertension, recent admission with enlarged CBD status post ERCP in July 2024, obesity, hypothyroidism presented to the emergency department for further evaluation of hypoxia with questionable aspiration PNA. # Atrial fibrillation with RVR ---> CVR # Wide-complex tachycardia - self-resolved # HFpEF with an EF of 60 to 65% # Hypoalbuminemia - Patient presented to hospital with aspiration pneumonia. Primary team did start the patient on antibiotics. - Patient had history of atrial fibrillation with rapid ventricular rate and is on carvedilol 3.125 Mg twice daily, amiodarone 200 Mg twice daily, rivaroxaban 20 Mg p.o. at bedtime - Regarding the episode of wide complex tachycardia at 110 bpm unlikely VT but could be NSVT. Reviewed the previous EKGs and patient probably has rate related incomplete bundle branch block which could also be the differential. - Initially started on amiodarone bolus as well as drip and later changed to oral medication - Atrial fibrillation with RVR episode mostly secondary to SAPPHIRE and severe dehydration in the setting of possible aspiration pneumonia and poor oral intake. - Echo on 07/2024- normal-sized left ventricle with normal left wall thickness wall motion ejection fraction of approximately 60%. Mildly dilated left atrium. Plan - Patient does not appear to be in acute heart failure as of now but has anasarca - Recommended to continue amiodarone 200 Mg p.o. twice daily for now and lovenox 40Qday - Started on albumin 25 g daily, hold Lasix 40 Mg IV daily due to possible pancreatitis requiring fluid resuscitation and resumed her home spironolactone 25 mg p.o. 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 Assessment and plan discussed with my attending physician Dr. Nam Osborne (PGY-2)- Internal medicine resident
[2024-09-15] MEDS: HYDROmorphone INJ 2 MG/ML VIAL 0.5 MG IVP (16:10)
[2024-09-15] MEDS: CEFEPIME INJ 2 GM in SODIUM CHLORIDE 0.9% (Popper) 50 ML IV (16:42)
--- NOTE | 2024-09-15 17:13 | XR_ITS ---
Examination: Abdomen AP single view Technique: AP portable supine abdomen, single view Exam date and time: September 15, 2024, 1736 hours INDICATIONS: Vomiting today FINDINGS: Radiopaque line projects lateral on the right side to the lumbar spine, 10 cm in length,, consider biliary stent which is mildly low in position Significant bibasilar parenchymal disease Moderate colonic ileus Moderate large amount of stool in the rectum Soft tissue vascular calcification IMPRESSION: Moderate colonic ileus Moderate to large amounts of stool in the rectum No obstruction No free air Significant bibasilar parenchymal disease
--- NOTE | 2024-09-15 19:06 | PC.NURSE ---
Received call from Yevgeniy in radiology stating no radiologist and XR barium enema will be done tomorrow am needing golytely for prep and NPO after MN. Called Dr. Payne and informed him, per Dr. Payne will talk to attending .
--- NOTE | 2024-09-15 19:33 | PC.NURSE ---
86% O2 sat on 2L/min/nc- Increased to 4L/min/nc.
--- NOTE | 2024-09-15 19:53 | PC.NURSE ---
86% O2 sat on 4L/min/nc- Increased to 5L/min/nc.
--- NOTE | 2024-09-15 22:22 | PC.NURSE ---
95% O2 sat on 5L/min/nc- decreased to 2L/min/nc.
--- NOTE | 2024-09-15 22:28 | PC.NURSE ---
83% O2 sat on 2L/min/nc- Increased to 5L/min/nc.
--- NOTE | 2024-09-15 23:11 | XR_ITS ---
Examination: AP chest single view TECHNIQUE: AP portable semiupright chest single view Date and time: September 15, 2024, 11:59 PM INDICATIONS: Post orogastric tube placement. FINDINGS: Orogastric tube lower portion is poorly visualized, side hole above the GE junction Mild prominence cardiac contour Significant vascular congestion Bibasilar pneumonia IMPRESSION: Advancing the orogastric tube 10 cm
[2024-09-15] MEDS: DEXTROSE 50%-WATER INJ 50 ML SYRINGE 25 ML IVP (23:52)
[2024-09-16] VITALS (19 sets, daily range): BP systolic 96–125; BP diastolic 51–78; PULSE 92–116; RESP 18–20; TEMP 36.1–36.3; O2SAT 92–100
[2024-09-16] MEDS: CEFEPIME INJ 2 GM in SODIUM CHLORIDE 0.9% (Popper) 50 ML IV ×4 (01:01→21:45)
[2024-09-16] MEDS: AMIODARONE HCL 200 MG TABLET PO ×2 (01:02→21:44)
[2024-09-16] MEDS: COLLAGENASE OINT 30 GM TUBE TOP ×2 (01:44→21:00)
[2024-09-16] MEDS: ALBUTEROL/IPRATROPIUM (Duoneb) RT SOL 3 ML NEBU INH ×6 (02:47→22:26)
[2024-09-16 06:31] LABS: Basophils # (Auto) 0.1 Thou/mm3 (0.0-0.2); Basophils % (Auto) 0 % (0-2.5); Eosinophils # (Auto) 0.0 Thou/mm3 (0.0-0.5); Eosinophils % (Auto) 0 % (0-10); Hematocrit 28.0 % (36.0-46.0); Hemoglobin 9.8 g/dL (12.0-16.0); Immature Granulocytes Auto 0.39 Thou/mm3 (0.00-0.00); Lymphocytes # (Auto) 1.1 Thou/mm3 (1.0-4.8); Lymphocytes % (Auto) 3 % (10-50); Mean Corpuscular HGB Conc 35.0 g/dl (31.0-37.0); Mean Corpuscular Hemoglobin 32.2 pg (25.0-35.0); Mean Corpuscular Volume 92 fL (80-100); Monocytes # (Auto) 2.6 Thou/mm3 (0.0-0.8); Monocytes % (Auto) 8 % (0-12); Neutrophils # (Auto) 27.8 Thou/mm3 (1.8-7.7); Neutrophils % (Auto) 87 % (37-80); Nucleated Red Blood Cell # 0.00 Thou/mm3 (0.00-0.00); Nucleated Red Blood Cell % 0 /100 WBC (0); Platelet Count 310 Thou/mm3 (140-440); RDW Standard Deviation 67.7 fL (36.4-46.3); Red Blood Count 3.04 Miln/mm3 (4.00-5.20); White Blood Count 32.1 Thou/mm3 (3.6-11.0)
[2024-09-16 06:43] LABS: Alanine Aminotransferase 61 U/L (10-49); Albumin, Serum 2.6 gm/dL (3.4-4.8); Albumin/Globulin Ratio 0.8 (1.2-2.2); Alkaline Phosphatase 240 U/L (46-116); Anion Gap 4 (7-16); Aspartate Amino Transferase 86 U/L (0-34); BUN/Creatinine Ratio 42 Ratio (12-20); Bilirubin,Total 3.2 mg/dL (0.3-1.2); Blood Urea Nitrogen 25 mg/dL (9-23); Calcium 8.9 mg/dL (8.3-10.6); Calcium (Corrected) 10.0 mg/dL (8.5-10.1); Carbon Dioxide 29.7 mMol/L (20.0-31.0); Chloride 101 mMol/L (98-107); Creatinine (Component) 0.6 mg/dL (0.6-1.3); Estimated Creatinine Clearance 84.6 mL/min (>60); Globulin 3.4 gm/dL (2.3-3.5); Glucose 74 mg/dL (74-106); Magnesium 2.0 mg/dL (1.6-2.6); Osmolality,Calculated 273 (275-295); Phosphorous 3.6 mg/dL (2.4-5.1); Potassium 3.7 mMol/L (3.4-5.1); Sodium 135 mMol/L (136-145); Total Protein 6.0 gm/dL (5.7-8.2); eGFR > 60 See Note
--- NOTE | 2024-09-16 07:51 | XR_ITS ---
Examination: AP chest single view Technique one AP portable upright chest single view Date and time: September 16, 2024 0816 hours Comparison September 15, 2024 INDICATIONS: Reposition orogastric tube. FINDINGS: Orogastric tube tip in the stomach satisfactory position Mild enlargement cardiac contour with prominent vascular congestion IMPRESSION: Orogastric tube in stomach satisfactory position
[2024-09-16] MEDS: ENOXAPARIN SOD INJ 40 MG/0.4 ML SYRINGE SC (09:25)
[2024-09-16] MEDS: ALBUMIN HUMAN 25% IVPB 25 GM/100 ML BTL IV (09:26)
[2024-09-16] MEDS: DEXTROSE 5%-0.45% NS 1,000 ML 60 ML IV (09:26)
--- NOTE | 2024-09-16 10:32 | PC.SS ---
SS follow up note; SS was informed by Dr. Burdick that patient's son was considering Hospice with SNF. SS contacted Shawnee from [facility] and she informed that at the time they do not have any hospice beds available, SS contacted patient's son Santana and informed him that [facility] was not able to accept patient under hospice. SS informed him SS could follow up with other facilities and determine if they are able to accept patient under hospice, Patient informed SS that at the time he would not want to purse hospice services and would like patient to discharge to [facility] without hospice services. SS contacted Dr. Bushra Urbina and updated him with patient's son's request.
--- NOTE | 2024-09-16 13:05 | PC.NURSE ---
Patient transferred via gurney to [facility]. Stable condition.
--- NOTE | 2024-09-16 15:41 | PC.SS ---
SS follow up note; Patient is still not medically cleared. Patient will discharge to [facility].
--- NOTE | 2024-09-16 15:44 | ESPR_ITS ---
Documentation for date of: 09/16/24 Subjective Subjective Interval history: No overnight events. Patient seen examined at bedside, complains of weakness, lethargy. Denies shortness of breath, chest pain, fevers. Abdomen somewhat less distended today, patient appears generally ill. Pending HIDA scan, Gastrografin enema, abdominal MRI. Remains on NG tube with suction. Spoke with son regarding goals of care, patient unable to be excepted at [facility] if on hospice, son states he would rather have patient be at [facility] than hospice at home. Exam Vital Signs Temp Pulse Resp BP Pulse Ox O2 Del Method O2 Flow Rate 97.0 F 100 18 102/55 L 95 Nasal Cannula 4 09/16/24 12:00 09/16/24 15:25 09/16/24 15:25 09/16/24 12:00 09/16/24 15:25 09/16/24 12:00 09/16/24 15:25 Narrative Exam General: Awake. HEENT: Normocephalic, atraumatic, mucous membranes moist. Heart: Regular rate and rhythm, no murmurs. No JVD Lungs: Lungs clear to auscultation bilaterally Abdomen: Soft, nondistended, diffuse tenderness. ?No guarding or rebound tenderness. Neurologic: Alert and oriented x3, no gross neurological deficit, and patient able to move all 4 extremities. Generalized weakness. Extremities: Bilateral pitting 2+ pedal edema noted Skin: No rash or ecchymoses. Objective Labs 09/17/24 04:40 09/17/24 04:40 Labs: Laboratory Results - last 24 hr 09/16/24 04:46 WBC 32.1 H RBC 3.04 L Hgb 9.8 L Hct 28.0 L MCV 92 MCH 32.2 MCHC 35.0 RDW Std Deviation 67.7 H Plt Count 310 D Neut % (Auto) 87 H Lymph % (Auto) 3 L [place] % (Auto) 8 Eos % (Auto) 0 Baso % (Auto) 0 Neut # (Auto) 27.8 H Lymph # (Auto) 1.1 [place] # (Auto) 2.6 H Eos # (Auto) 0.0 Baso # (Auto) 0.1 Immature Gran # (Auto) 0.39 H Absolute Nucleated RBC 0.00 Immature Gran % 1 H Nucleated RBC % 0 Sodium 135 L Potassium 3.7 Chloride 101 Carbon Dioxide 29.7 Anion Gap 4 L BUN 25 H Creatinine 0.6 Estim Creat Clear Calc 84.6 eGFR > 60 BUN/Creatinine Ratio 42 H Glucose 74 Calculated Osmolality 273 L Calcium 8.9 Corrected Calcium 10.0 Phosphorus 3.6 Magnesium 2.0 Total Bilirubin 3.2 H D AST 86 H ALT 61 H Alkaline Phosphatase 240 H D Total Protein 6.0 Albumin 2.6 L Globulin 3.4 Albumin/Globulin Ratio 0.8 L ABG Interpretation ABG results: 09/07/24 14:37 ABG pH 7.44 ABG pCO2 46 ABG pO2 65 L ABG HCO3 31 H ABG O2 Saturation 93 ABG Base Excess 6 H Quality Measures Quality Measures VTE prophylaxis Advance care planning discussed with:: patient and child Assessment & Plan Assessment Current Active Medications: Generic Name Dose Route Start Last Admin Trade Name Freq PRN Reason Stop Dose Admin Acetaminophen 650 mg 09/07/24 18:37 Acetaminophen 325 Mg Tablet PO 10/07/24 18:36 Q6H PRN PAIN OR FEVER > 100.4 Albuterol/Ipratropium 3 ml 09/13/24 15:00 09/16/24 15:25 Albuterol/Ipratropium (Duoneb) Rt Lauren 3 Ml Nebu INH 10/13/24 14:59 3 ml Q4HRRT GHADA Administration Amiodarone HCl 200 mg 09/08/24 19:00 09/16/24 09:26 Amiodarone Hcl 200 Mg Tablet PO 10/08/24 18:59 Not Given BID GHADA Benzonatate 200 mg 09/12/24 09:27 Benzonatate 100 Mg Capsule PO 10/12/24 09:26 Q8HR PRN COUGH Protocol Bisacodyl 10 mg 09/07/24 21:29 Bisacodyl 10 Mg Supp [place] 10/07/24 21:28 QDAY PRN Constipation Protocol Collagenase 0 gm 09/11/24 21:00 09/16/24 01:44 Collagenase Oint 30 Gm Tube TOP 10/11/24 20:59 1 applicatio HS GHADA Administration Dextrose 25 ml 09/14/24 09:32 Dextrose 50%-Water Inj 50 Ml Syringe IV 10/14/24 09:31 Q15MIN PRN BG 50-70 responsive npo pt Dextrose 50 ml 09/14/24 09:32 Dextrose 50%-Water Inj 50 Ml Syringe IV 10/14/24 09:31 Q15MIN PRN BG <50 OR BG <70 & pt unresponsive Enoxaparin Sodium 40 mg 09/15/24 15:15 09/16/24 09:25 Enoxaparin Sod Inj 40 Mg/0.4 Ml Syringe SC 09/29/24 15:14 40 mg QDAY GHADA Administration Gabapentin 100 mg 09/07/24 22:00 09/16/24 13:40 Gabapentin 100 Mg Capsule PO 10/07/24 21:59 Not Given TID GHADA Glucagon 1 mg 09/14/24 09:32 Glucagon Inj 1 Mg Vial IM Q15MIN PRN BG <70, and no IV access Hydromorphone HCl 0.5 mg 09/15/24 14:47 09/15/24 16:10 Hydromorphone Inj 2 Mg/Ml Vial IVP 09/20/24 14:46 0.5 mg Q4HR PRN Administration PAIN SCALE 4-10(Mod-Sev Cefepime HCl 2 gm/ Sodium 50 mls @ 100 mls/hr 09/15/24 16:45 09/16/24 13:39 Chloride IV 09/22/24 16:44 100 mls/hr Q8HR GHADA Administration Dextrose/Sodium Chloride 1,000 mls @ 60 mls/hr 09/16/24 08:27 09/16/24 09:26 D5-1/2ns IV 09/17/24 01:06 60 mls/hr .[id number] ONE Administration Magnesium Hydroxide 30 ml 09/07/24 21:29 Milk Of Magnesia Susp 30 Ml Udc PO 10/07/24 21:28 QDAY PRN CONSTIPATION Protocol Morphine Sulfate 15 mg 09/12/24 23:00 09/16/24 09:26 Morphine Sulf 15 Mg Tabcr PO 09/17/24 22:59 Not Given Q12HR GHADA Protocol Ondansetron HCl 4 mg 09/15/24 15:01 09/15/24 15:15 Ondansetron Inj 2 Mg/Ml Inj 2 Ml IVP 10/15/24 15:00 4 mg Q8HR PRN Administration NAUSEA OR VOMITING Protocol Pantoprazole Sodium 40 mg 09/08/24 09:00 09/16/24 09:25 Pantoprazole Inj 40 Mg Vial IVP 10/08/24 08:59 40 mg QDAY GHADA Administration Spironolactone 25 mg 09/13/24 15:45 09/15/24 08:24 Spironolactone 25 Mg Tablet PO 10/13/24 15:44 25 mg QDAY GHADA Administration Plan Nneka Burciaga is a 74-year-old female with a history of enlarged CBD s/p ERCP on 07/2024, COPD on 2 L home O2, HFpEF (60% on 07/2024), a-fib on Xarelto, hypertension, and chronic pain on home morphine who is admitted for AHRF secondary to pneumonia secondary to possible aspiration event, currently hospitalized due to fatigue and feeling weak. #Pancreatitis #Constipation, obstruction versus ileus Patient now complains of postprandial pain, epigastric tenderness, CT scan showed possible 20 mm pancreatic pseudocyst with surrounding pancreatic edema. Lipase WNL. Dr. Carrillo placed biliary stent in July 2024, was consulted. Will see patient Monday (09/17). ESR 83, CRP 10.4. Patient KUB showed extensive stool in colon with colonic dilation. Spoke with general surgeon, who recommended Gastrografin enema to evaluate for obstruction. Plan: - Dr. Carrillo consulted, appreciate recommendations - HIDA scan, MRI abdomen pending - n.p.o. - [place] for pain control - Gentle IVF: 60 mL/h LR - Patient antibiotics changed to cefepime for broader coverage - Hold diuretics - NG tube with suction - Gastrografin enema pending #Acute on chronic hypoxic respiratory failure secondary to possible aspiration event #Right lower lobe pneumonia hospital-acquired #Lactic acidosis, resolved #fatigue, improving Patient was in normal state of health prior to admission and per son she had an episode of emesis when eating. Given acuity of patient's presentation and CXR findings, etiology may be due to aspiration. However, at bedside in ED vital monitor showed what appeared to be VT/VF and thus will refrain from QTc prolonging agents (i.e. doxycycline, metronidazole). In ED, she was saturating in mid-90s on 15 L oxymask. At baseline, she utilizes 2 L oxygen mostly when sleeping and longstanding history of smoking and likely has COPD for which can keep O2 titrated between 88-92%. 09/10/2024: Oxygen saturation at 94% on 4L NC. - CXR (09/12) shows significant Bilateral PNA ? Discontinue ceftriaxone and doxycycline. Plan: ? Patient changed to cefepime - Monitor for clinical deterioration. ? Blood cultures 09/07: NGTD ? Supplemental oxygen as needed ? Keep oxygen titrated between 88 and 92% #Chronic Leukocytosis, reactive vs inflammatory vs infective process Patient has a history of reactive and infectious etiologies for leukocytosis on previous admissions. WBC have been elevated >20 this admission, consistent with previous admissions. Peripheral smear done 07/2024 reported reactive leukocytosis with no morphological abnormality identified. - Peripheral smear pathology rechecked 09/07/2024 showing similar findings as month before of reactive leukocytosis with no morphological abnormality identified with Mild normocytic anemia without hemolysis. Plan, ? Rotary Operator suggested that most likely leukocytosis is reactive. No further investigation required. ?Monitor for fever spike, continuing antibiotic therapy #Failure to thrive ? Patient is not able to eat and drink by her own self Plan: ? Nurse helping with eating and drinking ? Blood sugar checks every 6 hourly ? Hypoglycemia protocol in place ? Aspiration precautions ? Discussion was performed today with patient's son regarding hospice #Liver cirrhosis possibly MASH #Biliary stricture s/p ERCP and stent placement #Transaminitis #Hyperbilirubinemia Previously admitted for enlarged CBD and underwent ERCP on 08/01/2024 for which a stent was placed. After procedure, she continued to have elevated T. bili and transaminitis and again presents with relatively similar values. ?CT abdomen pelvis showed prominent right base pneumonia. Significant hepatomegaly. Mild ascites. Edema around pancreas with 20 mm radiolucency in the pancreatic head with possible pseudocyst. Plan: ? Held Lasix due to soft blood pressure. Spironolactone was given. ? Continue albumin ? Outpatient GI follow-up #Atrial fibrillation on Xarelto, rate controlled In ED cabin furnishings installer revealed wide QRS complexes with heart rate above 100 bpm and concern for nonsustained VT. Cardiology evaluated patient and stated that patient likely has a rate-related BBB due to underlying conditions such as infection and/or dehydration. QRS complexes have similar morphology, however during VT they tend to have more uniform and narrower QRS complexes in comparison to BBB with a typical shape that is different from baseline. VT typically has a higher heart rate above 150 and is sustained or paroxysmal. At baseline, rhythm is a-fib and appearance of BBB on top of that may confuse the diagnosis with VT. Plan: ? Per cardiology recs, continue PO amiodarone 200 mg BID ? Continue treating underlying cause ? Close monitoring of hemodynamics ? Lovenox 40 mg subcu daily #HFpEF (60% on 07/2024) Follows Dr. Browning outpatient. Does not appear to be fluid overload on exam, no vascular congestion on CXR, and CBC shows what appears to be hemoconcentration given elevated WBC, hemoglobin, and platelets though may be reactive thrombocytosis. Additionally, presents with SAPPHIRE given previous creatinine of 0.7 and now presents with creatinine of 1.0 with BUN/creatinine ratio > 20. Thus, patient likely overall dehydrated and will hold diuretics at this time. 300 cc NS bolus, can give additional IVF if indicated. ? Cardiology following as above Plan: ? Diuretics currently held ? Strict KEVIN's ? Fluid restriction #RUE edema Patient does not have any complaints regarding upper extremities Venous Duplex Upper Extremity Negative for DVT -Diuretics held #Chronic pain ? Gabapentin 100 mg p.o. three times daily ? Morphine ER 15 mg twice per day #COPD on 2 L home O2 Does not have any inhalers at home per son. ? Duonebs as needed Hospital management: Disposition: IV antibiotics, blood cultures NGTD. Discussion performed with patient's son regarding hospice. Diet: low sodium diet, dysphagia 2 diet Lines: PIV DVT prophylaxis: Lovenox GI prophylaxis: pantoprazole CODE STATUS: DNR/DNI Plan of care discussed with attending physician, Dr. Heavenly Barcenas MD PGY?2 Attending Provider Attestation/Addendum I, Seema Burdick, DO, attest that I was physically present for the pearson portions of the service and evaluated the patient with the resident and I reviewed and discussed the case with the resident and agree with the resident's findings and plans of care as documented above Patient seen and evaluated this AM. Patient appears lethargic and asking for water. oral mucosa appears dry. NG tube in place, no further episodes of N/V. Abdominal pain appears improved and is soft to palpation. Pending MRI this evening. Gastrograffin enema will be done following MRI. Will f/u with results and continue with current management. F/u with volume status as patient remains on IV fluids.
[2024-09-16] MEDS: HYDROmorphone INJ 2 MG/ML VIAL 0.5 MG IVP ×2 (17:28→23:53)
--- NOTE | 2024-09-16 21:00 | ESPR_ITS ---
<Statement entered by Jason Browning MD - 09/18/24 00:21> I personally examined the patient with resident physician Dr. Almonte PGY 2 agree with the treatment plan recommendation patient will be getting MRCP still has abdominal pain and discomfort continues her shortness of breath and some nausea. Evaluate the patient and continue to monitor the patient closely cardiac status is stable Documentation for date of: 09/17/24 Subjective Subjective Interval history: Patient is seen and examined at bedside No acute overnight events. Patient is appearing ill Endorsed that she is feeling very sick and wants to and cannot do this treatment anymore NG tube is placed in view of suspected cholecystitis, pancreatic pseudocyst Primary team is working up with a HIDA scan, MRI abdomen Vitals are stable and patient is on oxygen through nasal cannula Labs still showed leukocytosis. CT abdomen showed 20 mm pancreatic pseudocyst but the enzymes are within normal limits Telemetry is reviewed and patient is still in atrial fibrillation with controlled ventricular rate Rivaroxaban is held for now in view of anticipated surgical procedure Recommended to continue amiodarone 200 Mg p.o. twice daily for now Talked to the patient about ongoing medical conditions and reassured her. Exam Vital Signs Temp Pulse Resp BP Pulse Ox O2 Del Method O2 Flow Rate 97.9 F 100 18 124/63 97 Nasal Cannula 4 09/17/24 08:00 09/17/24 11:04 09/17/24 11:04 09/17/24 08:00 09/17/24 11:04 09/17/24 08:00 09/17/24 11:04 Narrative Exam General: Awake. NG tube insitu HEENT: Normocephalic, atraumatic, mucous membranes moist. Heart: Regular rate and rhythm, no murmurs. No JVD Lungs: bronchial breath sounds heard in right lung Abdomen: Soft, nondistended, tenderness noted mainly in the right upper quadrant and right lower quadrant, positive bowel sounds. ?No guarding or rebound tenderness. Neurologic: Alert and oriented x3, no gross neurological deficit, and patient able to move all 4 extremities. Noted left upper extremity swelling Extremities: Bilateral pitting 2+ pedal edema noted Skin: No rash or ecchymoses. Patient's abdominal with the patient Objective Labs 09/17/24 04:40 09/17/24 04:40 Labs: Laboratory Results - last 24 hr 09/17/24 04:40 WBC 31.4 H RBC 3.00 L Hgb 9.8 L Hct 28.9 L MCV 96 MCH 32.7 MCHC 33.9 RDW Std Deviation 70.3 H Plt Count 368 D Neut % (Auto) 85 H Lymph % (Auto) [address] % (Auto) 9 Eos % (Auto) 0 Baso % (Auto) 0 Neut # (Auto) 26.8 H Lymph # (Auto) 1.4 Lane # (Auto) 2.7 H Eos # (Auto) 0.1 Baso # (Auto) 0.1 Immature Gran # (Auto) 0.35 H Absolute Nucleated RBC 0.00 Immature Gran % 1 H Nucleated RBC % 0 Sodium 138 Potassium 3.7 Chloride 101 Carbon Dioxide 28.2 Anion Gap 9 BUN 22 Creatinine 0.6 Estim Creat Clear Calc 90.5 eGFR > 60 BUN/Creatinine Ratio 37 H Glucose 70 L Calculated Osmolality 276 Calcium 8.6 Corrected Calcium 9.8 Phosphorus 3.0 Magnesium 1.8 Total Bilirubin 3.1 H Direct Bilirubin 2.0 H AST 82 H ALT 51 H Alkaline Phosphatase 211 H D C-Reactive Prot, Quant 11.1 H Total Protein 5.8 Albumin 2.5 L Globulin 3.3 Albumin/Globulin Ratio 0.8 L ABG Interpretation ABG results: 09/07/24 14:37 ABG pH 7.44 ABG pCO2 46 ABG pO2 65 L ABG HCO3 31 H ABG O2 Saturation 93 ABG Base Excess 6 H Quality Measures Quality Measures VTE prophylaxis Advance care planning discussed with:: patient Assessment & Plan Assessment Current Active Medications: Generic Name Dose Route Start Last Admin Trade Name Andrewq PRN Reason Stop Dose Admin Acetaminophen 650 mg 09/07/24 18:37 Acetaminophen 325 Mg Tablet PO 10/07/24 18:36 Q6H PRN PAIN OR FEVER > 100.4 Albuterol/Ipratropium 3 ml 09/13/24 15:00 09/17/24 11:04 Albuterol/Ipratropium (Duoneb) Rt Lauren 3 Ml Nebu INH 10/13/24 14:59 3 ml Q4HRRT GHADA Administration Amiodarone HCl 200 mg 09/08/24 19:00 09/17/24 09:44 Amiodarone Hcl 200 Mg Tablet PO 10/08/24 18:59 Not Given BID GHADA Benzonatate 200 mg 09/12/24 09:27 Benzonatate 100 Mg Capsule PO 10/12/24 09:26 Q8HR PRN COUGH Protocol Bisacodyl 10 mg 09/07/24 21:29 Bisacodyl 10 Mg Supp FL 10/07/24 21:28 QDAY PRN Constipation Protocol Collagenase 0 gm 09/11/24 21:00 09/16/24 21:00 Collagenase Oint 30 Gm Tube TOP 10/11/24 20:59 1 applicatio HS GHADA Administration Dextrose 25 ml 09/14/24 09:32 Dextrose 50%-Water Inj 50 Ml Syringe IV 10/14/24 09:31 Q15MIN PRN BG 50-70 responsive npo pt Dextrose 50 ml 09/14/24 09:32 Dextrose 50%-Water Inj 50 Ml Syringe IV 10/14/24 09:31 Q15MIN PRN BG <50 OR BG <70 & pt unresponsive Enoxaparin Sodium 40 mg 09/15/24 15:15 09/17/24 09:42 Enoxaparin Sod Inj 40 Mg/0.4 Ml Syringe SC 09/29/24 15:14 40 mg QDAY GHADA Administration Gabapentin 100 mg 09/07/24 22:00 09/17/24 05:09 Gabapentin 100 Mg Capsule PO 10/07/24 21:59 Not Given TID GHADA Glucagon 1 mg 09/14/24 09:32 Glucagon Inj 1 Mg Vial IM Q15MIN PRN BG <70, and no IV access Hydromorphone HCl 0.5 mg 09/15/24 14:47 09/17/24 09:59 Hydromorphone Inj 2 Mg/Ml Vial IVP 09/20/24 14:46 0.5 mg Q4HR PRN Administration PAIN SCALE 4-10(Mod-Sev Cefepime HCl 2 gm/ Sodium 50 mls @ 100 mls/hr 09/15/24 16:45 09/17/24 05:14 Chloride IV 09/22/24 16:44 100 mls/hr Q8HR GHADA Administration Magnesium Hydroxide 30 ml 09/07/24 21:29 Milk Of Magnesia Susp 30 Ml Udc PO 10/07/24 21:28 QDAY PRN CONSTIPATION Protocol Morphine Sulfate 15 mg 09/12/24 23:00 09/17/24 09:43 Morphine Sulf 15 Mg Tabcr PO 09/17/24 22:59 Not Given Q12HR [facility] Protocol Ondansetron HCl 4 mg 09/15/24 15:01 09/15/24 15:15 Ondansetron Inj 2 Mg/Ml Inj 2 Ml IVP 10/15/24 15:00 4 mg Q8HR PRN Administration NAUSEA OR VOMITING Protocol Pantoprazole Sodium 40 mg 09/08/24 09:00 09/17/24 09:42 Pantoprazole Inj 40 Mg Vial IVP 10/08/24 08:59 40 mg QDAY GHADA Administration Spironolactone 25 mg 09/13/24 15:45 09/15/24 08:24 Spironolactone 25 Mg Tablet PO 10/13/24 15:44 25 mg QDAY GHADA Administration Plan 74-year-old female with a past medical history of HFpEF with an EF of 60 to 65%, paroxysmal atrial fibrillation on anticoagulation, essential hypertension, recent admission with enlarged CBD status post ERCP in July 2024, obesity, hypothyroidism presented to the emergency department for further evaluation of hypoxia with questionable aspiration PNA. # Atrial fibrillation with RVR ---> CVR # Wide-complex tachycardia - self-resolved # HFpEF with an EF of 60 to 65% # Hypoalbuminemia - Patient presented to hospital with aspiration pneumonia. Primary team did start the patient on antibiotics. - Patient had history of atrial fibrillation with rapid ventricular rate and is on carvedilol 3.125 Mg twice daily, amiodarone 200 Mg twice daily, rivaroxaban 20 Mg p.o. at bedtime - Regarding the episode of wide complex tachycardia at 110 bpm unlikely VT but could be NSVT. Reviewed the previous EKGs and patient probably has rate related incomplete bundle branch block which could also be the differential. - Initially started on amiodarone bolus as well as drip and later changed to oral medication - Atrial fibrillation with RVR episode mostly secondary to SAPPHIRE and severe dehydration in the setting of possible aspiration pneumonia and poor oral intake. - Echo on 07/2024- normal-sized left ventricle with normal left wall thickness wall motion ejection fraction of approximately 60%. Mildly dilated left atrium. Plan - Patient does not appear to be in acute heart failure as of now but has anasarca, likely due to severe hypoalbuminemia - Recommended to continue amiodarone 200 Mg p.o. 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 Assessment and plan discussed with my attending physician Dr. Nam Osborne (PGY-2)- Internal medicine resident
[2024-09-16] MEDS: GABAPENTIN 100 MG CAPSULE PO (21:45)
[2024-09-16] MEDS: Morphine Sulf 15 MG TABCR PO (21:45)
[2024-09-17] VITALS (11 sets, daily range): BP systolic 103–167; BP diastolic 62–72; PULSE 99–116; RESP 18–26; TEMP 36.3–36.7; O2SAT 92–100
--- NOTE | 2024-09-17 | XR_ITS ---
Examination: MRI abdomen with intravenous contrast. MRI abdomen without intravenous contrast. Date and time of exam: September 17, 2024 1127 hours INDICATIONS: Vomiting, history enlarged common bile duct status post ERCP July 2024, MRCP July 2024 enlarged common hepatic duct 14 mm Technique: Multiple axial, sagittal and coronal sections of the abdomen obtained. Transverse images, TR 6020, TE 107. T1 weighted transverse images, TR 582, TE 9.5. T2-weighted sagittal images, TR 4000, TE 105. T2-weighted sagittal images, TR 4000, TE 5. Coronal images, TR 4210, TE 107. Axial and coronal images are obtained post 20 cc intravenous injection, gadolinium. Findings: Liver irregular in contour, no focal liver lesions Common bile duct 8 mm no stones Gallbladder not visualized Spleen not enlarged Mild ascites No dilated pancreatic duct or pancreatic mass No definite pancreatitis No hydronephrosis Aorta normal size IMPRESSION: Liver irregular in contour Common bile duct 8 mm no stones Mild ascites No pancreatic mass or dilated pancreatic duct
--- NOTE | 2024-09-17 00:23 | PC.NURSE ---
Per milking machine technician, MRI was not completed as heating and cooling technician had to leave for the day. MRI is rescheduled and will be completed in the morning. notified.
[2024-09-17] MEDS: ALBUTEROL/IPRATROPIUM (Duoneb) RT SOL 3 ML NEBU INH ×6 (00:55→19:25)
[2024-09-17] MEDS: CEFEPIME INJ 2 GM in SODIUM CHLORIDE 0.9% (Popper) 50 ML IV ×3 (05:14→21:09)
[2024-09-17 06:22] LABS: Basophils # (Auto) 0.1 Thou/mm3 (0.0-0.2); Basophils % (Auto) 0 % (0-2.5); Eosinophils # (Auto) 0.1 Thou/mm3 (0.0-0.5); Eosinophils % (Auto) 0 % (0-10); Hematocrit 28.9 % (36.0-46.0); Hemoglobin 9.8 g/dL (12.0-16.0); Immature Granulocytes Auto 0.35 Thou/mm3 (0.00-0.00); Lymphocytes # (Auto) 1.4 Thou/mm3 (1.0-4.8); Lymphocytes % (Auto) 4 % (10-50); Mean Corpuscular HGB Conc 33.9 g/dl (31.0-37.0); Mean Corpuscular Hemoglobin 32.7 pg (25.0-35.0); Mean Corpuscular Volume 96 fL (80-100); Monocytes # (Auto) 2.7 Thou/mm3 (0.0-0.8); Monocytes % (Auto) 9 % (0-12); Neutrophils # (Auto) 26.8 Thou/mm3 (1.8-7.7); Neutrophils % (Auto) 85 % (37-80); Nucleated Red Blood Cell # 0.00 Thou/mm3 (0.00-0.00); Nucleated Red Blood Cell % 0 /100 WBC (0); Platelet Count 368 Thou/mm3 (140-440); RDW Standard Deviation 70.3 fL (36.4-46.3); Red Blood Count 3.00 Miln/mm3 (4.00-5.20); White Blood Count 31.4 Thou/mm3 (3.6-11.0)
[2024-09-17 06:51] LABS: Alanine Aminotransferase 51 U/L (10-49); Albumin, Serum 2.5 gm/dL (3.4-4.8); Albumin/Globulin Ratio 0.8 (1.2-2.2); Alkaline Phosphatase 211 U/L (46-116); Anion Gap 9 (7-16); Aspartate Amino Transferase 82 U/L (0-34); BUN/Creatinine Ratio 37 Ratio (12-20); Bilirubin,Total 3.1 mg/dL (0.3-1.2); Blood Urea Nitrogen 22 mg/dL (9-23); Calcium 8.6 mg/dL (8.3-10.6); Calcium (Corrected) 9.8 mg/dL (8.5-10.1); Carbon Dioxide 28.2 mMol/L (20.0-31.0); Chloride 101 mMol/L (98-107); Creatinine (Component) 0.6 mg/dL (0.6-1.3); Estimated Creatinine Clearance 90.5 mL/min (>60); Globulin 3.3 gm/dL (2.3-3.5); Glucose 70 mg/dL (74-106); Magnesium 1.8 mg/dL (1.6-2.6); Osmolality,Calculated 276 (275-295); Phosphorous 3.0 mg/dL (2.4-5.1); Potassium 3.7 mMol/L (3.4-5.1); Sodium 138 mMol/L (136-145); Total Protein 5.8 gm/dL (5.7-8.2); eGFR > 60 See Note
[2024-09-17] MEDS: ENOXAPARIN SOD INJ 40 MG/0.4 ML SYRINGE SC (09:42)
[2024-09-17] MEDS: POTASSIUM CHL 10 mEq IVPB 10 MEQ/100 ML BAG 100 MEQ IV ×2 (09:47→10:56)
[2024-09-17] MEDS: HYDROmorphone INJ 2 MG/ML VIAL 0.5 MG IVP ×3 (09:59→23:25)
--- NOTE | 2024-09-17 11:13 | PD.IMCONS ---
HPI Data of Consult Requesting Physician: Seema Burdick DO Primary Care Provider: Domenic Mcmahan MD Consult Narrative History of present illness: Chief complaint: Abdominal pain History of present illness: Patient is a 74-year-old female with a complicated past medical history had an ERCP about a month ago for distal bile duct stricture stent placed presented with abdominal pain and GI was called for the concern for cholangitis and repeat ERCP. HIDA scan was obtained and tracer is notable in the small intestine. Also MRI of the abdomen with and without contrast was obtained and there is no evidence of pseudocyst or pancreatitis. No other associated symptoms at this time. cc:: cc: Seema Burdick DO Review of Systems Review of Systems Narrative Review of Systems: Patient cannot provide any history family is the source of the history. Meds Home Medications and Allergies Home Medications ?Medication ?Instructions ?Recorded ?Confirmed ?Type potassium chloride 10 mEq 10 meq PO BID 09/08/17 09/07/24 History capsule,extended release spironolactone 25 mg tablet 25 mg PO QDAY 12/22/20 09/07/24 History amiodarone 200 mg tablet 200 mg PO BID 07/15/21 09/07/24 History duloxetine 60 mg capsule,delayed 60 mg PO BID 02/28/22 09/07/24 History release gabapentin 100 mg capsule 100 mg PO TID 02/28/22 09/07/24 History buspirone 15 mg tablet 15 mg PO TID PRN Anxiety 11/15/23 09/07/24 History rivaroxaban 20 mg tablet (Xarelto) 20 mg PO HS 11/15/23 09/07/24 History carvedilol 3.125 mg tablet 3.125 mg PO BIDAC 07/24/24 09/07/24 History Allergies Allergy/AdvReac Type Severity Reaction Status Date / Time doxycycline Allergy Verified 07/23/24 00:53 Exam Vital Signs Temp Pulse Resp BP Pulse Ox O2 Del Method O2 Flow Rate 97.9 F 100 18 124/63 94 L Nasal Cannula 4 09/17/24 08:00 09/17/24 08:00 09/17/24 08:00 09/17/24 08:00 09/17/24 08:00 09/17/24 08:00 09/17/24 08:00 Routine Abdominal Exam Comments: Abdominal exam benign no peritonitis no sign of rebound tenderness Results Labs 09/17/24 04:40 09/17/24 04:40 Labs: Short CBC 09/17/24 Range/Units 04:40 WBC 31.4 H (3.6-11.0) Thou/mm3 Hgb 9.8 L (12.0-16.0) g/dL Hct 28.9 L (36.0-46.0) % Plt Count 368 D (140-440) Thou/mm3 BMP 09/17/24 04:40 Sodium 138 Potassium 3.7 Chloride 101 Carbon Dioxide 28.2 BUN 22 Creatinine 0.6 Glucose 70 L Calcium 8.6 Liver Function 09/17/24 Range/Units 04:40 Total Bilirubin 3.1 H (0.3-1.2) mg/dL AST 82 H (0-34) U/L ALT 51 H (10-49) U/L Alkaline Phosphatase 211 H D (46-116) U/L Albumin 2.5 L (3.4-4.8) gm/dL ABG Interpretation ABG results: 09/07/24 14:37 ABG pH 7.44 ABG pCO2 46 ABG pO2 65 L ABG HCO3 31 H ABG O2 Saturation 93 ABG Base Excess 6 H Assessment and Plan Additional Assessment & Plan Additional Plan: 74-year-old female with complicated past medical history of status post ERCP with stent placement. Elevated bilirubin. Bile duct scan showed activity in Small intestine MRI of the abdomen did not show any evidence of pseudocyst or pancreatitis MRI consistent with cirrhosis of liver Most likely elevated bilirubin is secondary to decompensated cirrhosis. There is no obstructive pathology in the biliary tract. Biliary stent is functioning properly. There is no indication to proceed with ERCP I would highly recommend to treat the underlying infection. Will follow the patient.
--- NOTE | 2024-09-17 11:21 | XR_ITS ---
Examination: Abdomen AP single view Technique: AP portable supine abdomen, single view Exam date and time: September 17, 2024 1227 hours INDICATIONS: Abdominal pain this week. FINDINGS: Nonobstructive bowel gas pattern. Linear opacity which may represent a biliary stent which appears somewhat low in position but clinical correlation advised No free air Orogastric tube tip in the stomach satisfactory position IMPRESSION: Nonobstructive bowel gas pattern
[2024-09-17 12:11] LABS: Bilirubin,Direct 2.0 mg/dL (0.0-0.3); C-Reactive Protein 11.1 mg/dL (0.0-0.9)
--- NOTE | 2024-09-17 13:10 | PC.NURSE ---
Patient medications have been late all day. Patient had a nuclear med scan, MRI, Xray and possibly is still down stairs getting a gastro graffin enema. will continue patients medications once she gets back on floor.
--- NOTE | 2024-09-17 14:34 | ESPR_ITS ---
Documentation for date of: 09/17/24 Subjective Subjective Interval history: No overnight events. Patient seen and examined at bedside. Improved mentaqtion, patient more alert and responsive. Abdomen remains tender, less distended. No reported BM. Repeat KUB showed nonobstructive bowel gas. Gastrograffin enema showed no obstruction/volvulus, heavy stool burden. MRI unremarkable. Movantik initiated. Exam Vital Signs Temp Pulse Resp BP Pulse Ox O2 Del Method O2 Flow Rate 97.9 F 100 18 124/63 97 Nasal Cannula 4 09/17/24 08:00 09/17/24 11:04 09/17/24 11:04 09/17/24 08:00 09/17/24 11:04 09/17/24 08:00 09/17/24 11:04 Narrative Exam General: Awake. HEENT: Normocephalic, atraumatic, mucous membranes moist. Heart: Regular rate and rhythm, no murmurs. No JVD Lungs: Lungs clear to auscultation bilaterally Abdomen: Soft, nondistended, diffuse tenderness, improved. ?No guarding or rebound tenderness. Neurologic: Alert and oriented x3, no gross neurological deficit, and patient able to move all 4 extremities. Generalized weakness. Extremities: Bilateral pitting 2+ pedal edema noted Skin: No rash or ecchymoses. Objective Labs 09/18/24 05:17 09/18/24 05:17 Labs: Laboratory Results - last 24 hr 09/17/24 04:40 WBC 31.4 H RBC 3.00 L Hgb 9.8 L Hct 28.9 L MCV 96 MCH 32.7 MCHC 33.9 RDW Std Deviation 70.3 H Plt Count 368 D Neut % (Auto) 85 H Lymph % (Auto) 4 L [place] % (Auto) 9 Eos % (Auto) 0 Baso % (Auto) 0 Neut # (Auto) 26.8 H Lymph # (Auto) 1.4 [place] # (Auto) 2.7 H Eos # (Auto) 0.1 Baso # (Auto) 0.1 Immature Gran # (Auto) 0.35 H Absolute Nucleated RBC 0.00 Immature Gran % 1 H Nucleated RBC % 0 Sodium 138 Potassium 3.7 Chloride 101 Carbon Dioxide 28.2 Anion Gap 9 BUN 22 Creatinine 0.6 Estim Creat Clear Calc 90.5 eGFR > 60 BUN/Creatinine Ratio 37 H Glucose 70 L Calculated Osmolality 276 Calcium 8.6 Corrected Calcium 9.8 Phosphorus 3.0 Magnesium 1.8 Total Bilirubin 3.1 H Direct Bilirubin 2.0 H AST 82 H ALT 51 H Alkaline Phosphatase 211 H D C-Reactive Prot, Quant 11.1 H Total Protein 5.8 Albumin 2.5 L Globulin 3.3 Albumin/Globulin Ratio 0.8 L ABG Interpretation ABG results: 09/07/24 14:37 ABG pH 7.44 ABG pCO2 46 ABG pO2 65 L ABG HCO3 31 H ABG O2 Saturation 93 ABG Base Excess 6 H Quality Measures Quality Measures VTE prophylaxis Advance care planning discussed with:: patient Assessment & Plan Assessment Current Active Medications: Generic Name Dose Route Start Last Admin Trade Name Freq PRN Reason Stop Dose Admin Acetaminophen 650 mg 09/07/24 18:37 Acetaminophen 325 Mg Tablet PO 10/07/24 18:36 Q6H PRN PAIN OR FEVER > 100.4 Albuterol/Ipratropium 3 ml 09/13/24 15:00 09/17/24 11:04 Albuterol/Ipratropium (Duoneb) Rt Lauren 3 Ml Nebu INH 10/13/24 14:59 3 ml Q4HRRT GHADA Administration Amiodarone HCl 200 mg 09/08/24 19:00 09/17/24 09:44 Amiodarone Hcl 200 Mg Tablet PO 10/08/24 18:59 Not Given BID GHADA Benzonatate 200 mg 09/12/24 09:27 Benzonatate 100 Mg Capsule PO 10/12/24 09:26 Q8HR PRN COUGH Protocol Bisacodyl 10 mg 09/07/24 21:29 Bisacodyl 10 Mg Supp SC 10/07/24 21:28 QDAY PRN Constipation Protocol Collagenase 0 gm 09/11/24 21:00 09/16/24 21:00 Collagenase Oint 30 Gm Tube TOP 10/11/24 20:59 1 applicatio HS GHADA Administration Dextrose 25 ml 09/14/24 09:32 Dextrose 50%-Water Inj 50 Ml Syringe IV 10/14/24 09:31 Q15MIN PRN BG 50-70 responsive npo pt Dextrose 50 ml 09/14/24 09:32 Dextrose 50%-Water Inj 50 Ml Syringe IV 10/14/24 09:31 Q15MIN PRN BG <50 OR BG <70 & pt unresponsive Enoxaparin Sodium 40 mg 09/15/24 15:15 09/17/24 09:42 Enoxaparin Sod Inj 40 Mg/0.4 Ml Syringe SC 09/29/24 15:14 40 mg QDAY GHADA Administration Gabapentin 100 mg 09/07/24 22:00 09/17/24 13:18 Gabapentin 100 Mg Capsule PO 10/07/24 21:59 Not Given TID GHADA Glucagon 1 mg 09/14/24 09:32 Glucagon Inj 1 Mg Vial IM Q15MIN PRN BG <70, and no IV access Hydromorphone HCl 0.5 mg 09/15/24 14:47 09/17/24 09:59 Hydromorphone Inj 2 Mg/Ml Vial IVP 09/20/24 14:46 0.5 mg Q4HR PRN Administration PAIN SCALE 4-10(Mod-Sev Cefepime HCl 2 gm/ Sodium 50 mls @ 100 mls/hr 09/15/24 16:45 09/17/24 05:14 Chloride IV 09/22/24 16:44 100 mls/hr Q8HR GHADA Administration Magnesium Hydroxide 30 ml 09/07/24 21:29 Milk Of Magnesia Susp 30 Ml Udc PO 10/07/24 21:28 QDAY PRN CONSTIPATION Protocol Morphine Sulfate 15 mg 09/12/24 23:00 09/17/24 09:43 Morphine Sulf 15 Mg Tabcr PO 09/17/24 22:59 Not Given Q12HR GHADA Protocol Ondansetron HCl 4 mg 09/15/24 15:01 09/15/24 15:15 Ondansetron Inj 2 Mg/Ml Inj 2 Ml IVP 10/15/24 15:00 4 mg Q8HR PRN Administration NAUSEA OR VOMITING Protocol Pantoprazole Sodium 40 mg 09/08/24 09:00 09/17/24 09:42 Pantoprazole Inj 40 Mg Vial IVP 10/08/24 08:59 40 mg QDAY GHADA Administration Spironolactone 25 mg 09/13/24 15:45 09/15/24 08:24 Spironolactone 25 Mg Tablet PO 10/13/24 15:44 25 mg QDAY GHADA Administration Plan Nneka Burciaga is a 74-year-old female with a history of enlarged CBD s/p ERCP on 07/2024, COPD on 2 L home O2, HFpEF (60% on 07/2024), a-fib on Xarelto, hypertension, and chronic pain on home morphine who is admitted for AHRF secondary to pneumonia secondary to possible aspiration event, currently hospitalized due to fatigue and feeling weak. #Pancreatitis #Constipation, likely ileus Patient now complains of postprandial pain, epigastric tenderness, CT scan showed possible 20 mm pancreatic pseudocyst with surrounding pancreatic edema. Lipase WNL. Dr. Carrillo placed biliary stent in July 2024, was consulted. Will see patient Monday (09/17). ESR 83, CRP 10.4. Patient KUB showed extensive stool in colon with colonic dilation. Spoke with general surgeon, who recommended Gastrografin enema to evaluate for obstruction. MRI and HIDA scan unremarkable. Gatrograffin showed heavy stool burden, no volvulus/obstruction. Per Dr. Carrillo, no need for ERCP. Plan: - Dr. Carrillo consulted, appreciate recommendations - resume diet - [place] for pain control - Patient antibiotics changed to cefepime for broader coverage - Hold diuretics - NG tube with suction - Movantik 25mg PO daily #Acute on chronic hypoxic respiratory failure secondary to possible aspiration event, resolved #Right lower lobe pneumonia hospital-acquired #Lactic acidosis, resolved #fatigue, improving Patient was in normal state of health prior to admission and per son she had an episode of emesis when eating. Given acuity of patient's presentation and CXR findings, etiology may be due to aspiration. However, at bedside in ED vital monitor showed what appeared to be VT/VF and thus will refrain from QTc prolonging agents (i.e. doxycycline, metronidazole). In ED, she was saturating in mid-90s on 15 L oxymask. At baseline, she utilizes 2 L oxygen mostly when sleeping and longstanding history of smoking and likely has COPD for which can keep O2 titrated between 88-92%. 09/10/2024: Oxygen saturation at 94% on 4L NC. - CXR (09/12) shows significant Bilateral PNA ? Discontinue ceftriaxone and doxycycline. Plan: ? Patient changed to cefepime - Monitor for clinical deterioration. ? Blood cultures 09/07: NGTD ? Supplemental oxygen as needed ? Keep oxygen titrated between 88 and 92% #Chronic Leukocytosis, reactive vs inflammatory vs infective process Patient has a history of reactive and infectious etiologies for leukocytosis on previous admissions. WBC have been elevated >20 this admission, consistent with previous admissions. Peripheral smear done 07/2024 reported reactive leukocytosis with no morphological abnormality identified. - Peripheral smear pathology rechecked 09/07/2024 showing similar findings as month before of reactive leukocytosis with no morphological abnormality identified with Mild normocytic anemia without hemolysis. Plan, ? Server Assistant suggested that most likely leukocytosis is reactive. No further investigation required. ? Monitor for fever spike, continuing antibiotic therapy #Failure to thrive Patient is not able to eat and drink by her own self. Family reports general decline over several months. Plan: ? Nurse helping with eating and drinking ? Blood sugar checks every 6 hourly ? Hypoglycemia protocol in place ? Aspiration precautions ? Discussion was performed today with patient's son regarding hospice #Liver cirrhosis possibly MASH #Biliary stricture s/p ERCP and stent placement #Transaminitis #Hyperbilirubinemia Previously admitted for enlarged CBD and underwent ERCP on 08/01/2024 for which a stent was placed. After procedure, she continued to have elevated T. bili and transaminitis and again presents with relatively similar values. CT abdomen pelvis showed prominent right base pneumonia. Significant hepatomegaly. Mild ascites. Edema around pancreas with 20 mm radiolucency in the pancreatic head with possible pseudocyst. Plan: ? Held Lasix due to soft blood pressure. Spironolactone was given. ? Continue albumin ? Outpatient GI follow-up #Atrial fibrillation on Xarelto, rate controlled In ED cardiac monitor technician revealed wide QRS complexes with heart rate above 100 bpm and concern for nonsustained VT. Cardiology evaluated patient and stated that patient likely has a rate-related BBB due to underlying conditions such as infection and/or dehydration. QRS complexes have similar morphology, however during VT they tend to have more uniform and narrower QRS complexes in comparison to BBB with a typical shape that is different from baseline. VT typically has a higher heart rate above 150 and is sustained or paroxysmal. At baseline, rhythm is a-fib and appearance of BBB on top of that may confuse the diagnosis with VT. Plan: ? Per cardiology recs, continue PO amiodarone 200 mg BID ? Continue treating underlying cause ? Close monitoring of hemodynamics ? Lovenox 40 mg subcu daily #HFpEF (60% on 07/2024) Follows Dr. Browning outpatient. Does not appear to be fluid overload on exam, no vascular congestion on CXR, and CBC shows what appears to be hemoconcentration given elevated WBC, hemoglobin, and platelets though may be reactive thrombocytosis. Additionally, presents with SAPPHIRE given previous creatinine of 0.7 and now presents with creatinine of 1.0 with BUN/creatinine ratio > 20. Thus, patient likely overall dehydrated and will hold diuretics at this time. 300 cc NS bolus, can give additional IVF if indicated. ? Cardiology following as above Plan: ? Diuretics currently held ? Strict KEVIN's ? Fluid restriction #RUE edema Patient does not have any complaints regarding upper extremities Venous Duplex Upper Extremity Negative for DVT -Diuretics held #Chronic pain ? Gabapentin 100 mg p.o. three times daily ? Morphine ER 15 mg twice per day #COPD on 2 L home O2 Does not have any inhalers at home per son. ? Duonebs as needed Hospital management: Disposition: IV antibiotics, blood cultures NGTD. Discussion performed with patient's son regarding hospice. Diet: low sodium diet, dysphagia 2 diet Lines: PIV DVT prophylaxis: Lovenox GI prophylaxis: pantoprazole CODE STATUS: DNR/DNI Plan of care discussed with attending physician, Dr. Heavenly Barcenas MD PGY?2 Attending Provider Attestation/Addendum I, Seema Burdick, DO, attest that I was physically present for the [place] portions of the service and evaluated the patient with the resident and I reviewed and discussed the case with the resident and agree with the resident's findings and plans of care as documented above Patient seen and evaluated this AM. She denies any epigastric pain, nausea or vomiting. Gastrograffin enema shows no obstruction or volvulus. Patient does have a large stool burden. Will start on movantik as she does chronically use opioids. Will slowly advance diet as tolerated.
--- NOTE | 2024-09-17 14:42 | PC.SS ---
Rounding note: patient pending further workup and hyda scan, not ready for DC.
[2024-09-17] MEDS: ALBUMIN HUMAN 25% IVPB 12.5 GM/50 ML BTL IV (16:32)
[2024-09-17] MEDS: NALOXEGOL OXALATE 25 MG TABLET (NON-FORMULARY) PO (17:10)
--- NOTE | 2024-09-17 18:00 | ESPR_ITS ---
<Statement entered by Jason Browning MD - 09/22/24 18:17> I personally examined the patient evaluated the patient with the resident physician patient appears to be doing poorly still having a lot of pain not eating well has nausea does not complain of any cardiac symptoms chest pain cardiovascular stable A-fib rate controlled. Does not complain of any other issues agree with the treatment plan recommendation as documented from the cardiology point of view by Dr. Christian Ashley PGY 2 will continue to monitor the patient closely Documentation for date of: 09/17/24 Subjective Subjective Interval history: Patient is seen and examined at bedside No acute overnight events. Still complaining of discomfort in the abdomen and pain throughout the body On physical examination, noted bilateral coarse breath sounds likely aspiration Primary team started on albumin and furosemide, okay for now but patient does not appear to be in acute heart failure Exam Vital Signs Temp Pulse Resp BP Pulse Ox O2 Del Method O2 Flow Rate 97.6 F 112 H 20 167/72 H 95 Nasal Cannula 4 09/17/24 16:00 09/17/24 16:00 09/17/24 16:00 09/17/24 16:00 09/17/24 16:00 09/17/24 16:00 09/17/24 16:00 Narrative Exam General: Awake. HEENT: Normocephalic, atraumatic, mucous membranes moist. Heart: Regular rate and rhythm, no murmurs. No JVD Lungs: B/L coarse breath sounds are heard Abdomen: Soft, nondistended, tenderness noted mainly in the right upper quadrant and right lower quadrant, positive bowel sounds. ?No guarding or rebound tenderness. Neurologic: Alert and oriented x3, no gross neurological deficit, and patient able to move all 4 extremities. Noted left upper extremity swelling Extremities: Bilateral pitting 2+ pedal edema noted Skin: No rash or ecchymoses. Patient's abdominal with the patient Objective Labs 09/19/24 07:50 09/19/24 07:50 Labs: Laboratory Results - last 24 hr 09/17/24 04:40 WBC 31.4 H RBC 3.00 L Hgb 9.8 L Hct 28.9 L MCV 96 MCH 32.7 MCHC 33.9 RDW Std Deviation 70.3 H Plt Count 368 D Neut % (Auto) 85 H Lymph % (Auto) 4 L [place] % (Auto) 9 Eos % (Auto) 0 Baso % (Auto) 0 Neut # (Auto) 26.8 H Lymph # (Auto) 1.4 [place] # (Auto) 2.7 H Eos # (Auto) 0.1 Baso # (Auto) 0.1 Immature Gran # (Auto) 0.35 H Absolute Nucleated RBC 0.00 Immature Gran % 1 H Nucleated RBC % 0 Sodium 138 Potassium 3.7 Chloride 101 Carbon Dioxide 28.2 Anion Gap 9 BUN 22 Creatinine 0.6 Estim Creat Clear Calc 90.5 eGFR > 60 BUN/Creatinine Ratio 37 H Glucose 70 L Calculated Osmolality 276 Calcium 8.6 Corrected Calcium 9.8 Phosphorus 3.0 Magnesium 1.8 Total Bilirubin 3.1 H Direct Bilirubin 2.0 H AST 82 H ALT 51 H Alkaline Phosphatase 211 H D C-Reactive Prot, Quant 11.1 H Total Protein 5.8 Albumin 2.5 L Globulin 3.3 Albumin/Globulin Ratio 0.8 L ABG Interpretation ABG results: 09/07/24 14:37 ABG pH 7.44 ABG pCO2 46 ABG pO2 65 L ABG HCO3 31 H ABG O2 Saturation 93 ABG Base Excess 6 H Quality Measures Quality Measures VTE prophylaxis Advance care planning discussed with:: patient Assessment & Plan Assessment Current Active Medications: Generic Name Dose Route Start Last Admin Trade Name Freq PRN Reason Stop Dose Admin Acetaminophen 650 mg 09/07/24 18:37 Acetaminophen 325 Mg Tablet PO 10/07/24 18:36 Q6H PRN PAIN OR FEVER > 100.4 Albuterol/Ipratropium 3 ml 09/13/24 15:00 09/17/24 14:54 Albuterol/Ipratropium (Duoneb) Rt Lauren 3 Ml Nebu INH 10/13/24 14:59 3 ml Q4HRRT GHADA Administration Amiodarone HCl 200 mg 09/08/24 19:00 09/17/24 09:44 Amiodarone Hcl 200 Mg Tablet PO 10/08/24 18:59 Not Given BID GHADA Benzonatate 200 mg 09/12/24 09:27 Benzonatate 100 Mg Capsule PO 10/12/24 09:26 Q8HR PRN COUGH Protocol Bisacodyl 10 mg 09/07/24 21:29 Bisacodyl 10 Mg Supp [place] 10/07/24 21:28 QDAY PRN Constipation Protocol Collagenase 0 gm 09/11/24 21:00 09/16/24 21:00 Collagenase Oint 30 Gm Tube TOP 10/11/24 20:59 1 applicatio HS GHADA Administration Dextrose 25 ml 09/14/24 09:32 Dextrose 50%-Water Inj 50 Ml Syringe IV 10/14/24 09:31 Q15MIN PRN BG 50-70 responsive npo pt Dextrose 50 ml 09/14/24 09:32 Dextrose 50%-Water Inj 50 Ml Syringe IV 10/14/24 09:31 Q15MIN PRN BG <50 OR BG <70 & pt unresponsive Enoxaparin Sodium 40 mg 09/15/24 15:15 09/17/24 09:42 Enoxaparin Sod Inj 40 Mg/0.4 Ml Syringe SC 09/29/24 15:14 40 mg QDAY GHADA Administration Gabapentin 100 mg 09/07/24 22:00 09/17/24 13:18 Gabapentin 100 Mg Capsule PO 10/07/24 21:59 Not Given TID GHADA Glucagon 1 mg 09/14/24 09:32 Glucagon Inj 1 Mg Vial IM Q15MIN PRN BG <70, and no IV access Hydromorphone HCl 0.5 mg 09/15/24 14:47 09/17/24 15:05 Hydromorphone Inj 2 Mg/Ml Vial IVP 09/20/24 14:46 0.5 mg Q4HR PRN Administration PAIN SCALE 4-10(Mod-Sev Cefepime HCl 2 gm/ Sodium 50 mls @ 100 mls/hr 09/15/24 16:45 09/17/24 15:05 Chloride IV 09/22/24 16:44 100 mls/hr Q8HR GHADA Administration Magnesium Hydroxide 30 ml 09/07/24 21:29 Milk Of Magnesia Susp 30 Ml Udc PO 10/07/24 21:28 QDAY PRN CONSTIPATION Protocol Morphine Sulfate 15 mg 09/12/24 23:00 09/17/24 09:43 Morphine Sulf 15 Mg Tabcr PO 09/17/24 22:59 Not Given Q12HR GHADA Protocol Naloxegol 25 mg 09/17/24 15:15 09/17/24 17:10 Naloxegol Oxalate 25 Mg Tablet (Non-Formulary) PO 10/17/24 15:14 25 mg ACBR GHADA Administration Ondansetron HCl 4 mg 09/15/24 15:01 09/15/24 15:15 Ondansetron Inj 2 Mg/Ml Inj 2 Ml IVP 10/15/24 15:00 4 mg Q8HR PRN Administration NAUSEA OR VOMITING Protocol Pantoprazole Sodium 40 mg 09/08/24 09:00 09/17/24 09:42 Pantoprazole Inj 40 Mg Vial IVP 10/08/24 08:59 40 mg QDAY GHADA Administration Spironolactone 25 mg 09/13/24 15:45 09/15/24 08:24 Spironolactone 25 Mg Tablet PO 10/13/24 15:44 25 mg QDAY GHADA Administration Plan 74-year-old female with a past medical history of HFpEF with an EF of 60 to 65%, paroxysmal atrial fibrillation on anticoagulation, essential hypertension, recent admission with enlarged CBD status post ERCP in July 2024, obesity, hypothyroidism presented to the emergency department for further evaluation of hypoxia with questionable aspiration PNA. # Atrial fibrillation with RVR ---> CVR # Wide-complex tachycardia - self-resolved # HFpEF with an EF of 60 to 65% # Hypoalbuminemia - Patient presented to hospital with aspiration pneumonia. Primary team did start the patient on antibiotics. - Patient had history of atrial fibrillation with rapid ventricular rate and is on carvedilol 3.125 Mg twice daily, amiodarone 200 Mg twice daily, rivaroxaban 20 Mg p.o. at bedtime - Regarding the episode of wide complex tachycardia at 110 bpm unlikely VT but could be NSVT. Reviewed the previous EKGs and patient probably has rate related incomplete bundle branch block which could also be the differential. - Initially started on amiodarone bolus as well as drip and later changed to oral medication - Atrial fibrillation with RVR episode mostly secondary to SAPPHIRE and severe dehydration in the setting of possible aspiration pneumonia and poor oral intake. - Echo on 07/2024- normal-sized left ventricle with normal left wall thickness wall motion ejection fraction of approximately 60%. Mildly dilated left atrium. Plan - Patient does not appear to be in acute heart failure as of now but has anasarca, likely due to severe hypoalbuminemia - Recommended to continue amiodarone 200 Mg p.o. twice daily for now and lovenox 40Qday - Okay to hold anticoagulation for now - Can continue albumin and furosemide for now but patient doesnt appear to be in acute decompensation - Recommended to monitor blood pressures and titrate medications as needed - Keep potassium greater than 4 and magnesium greater than 2 #Acute on chronic hypoxic respiratory failure secondary to possible aspiration event #Right lower lobe pneumonia #Lactic acidosis #Biliary stricture s/p ERCP and stent placement #Transaminitis #Hyperbilirubinemia #Chronic pain #COPD on 2 L home O2 Management of rest of the medical conditions as per primary team and other consultants. Assessment and plan discussed with my attending physician Dr. Nam Osborne (PGY-2)- Internal medicine resident
--- NOTE | 2024-09-17 19:46 | XR_ITS ---
Examination: Gastrografin enema with KUB Fluoroscopy 36 spot fluoroscopic films of the colon INDICATIONS: Abdominal distention this week, clinical diagnosis volvulus TECHNIQUE AND FINDINGS: Colon filled in retrograde manner to descending colon but not filling of the cecum There are large amounts of stool throughout the entire colon No volvulus noted Fluoroscopy 0.6 minutes radiation dose 153.34 milligray 36 spot fluoroscopic films IMPRESSION: Limited study, very large amounts of stool throughout the entire colon limiting colonic filling No colonic volvulus demonstrated
[2024-09-17] MEDS: Morphine Sulf 15 MG TABCR PO (20:07)
[2024-09-17] MEDS: ONDANSETRON INJ 2 MG/ML INJ 2 ML 4 MG IVP (20:07)
[2024-09-17] MEDS: AMIODARONE HCL 200 MG TABLET PO (20:07)
[2024-09-17] MEDS: COLLAGENASE OINT 30 GM TUBE TOP (20:23)
[2024-09-17] MEDS: GABAPENTIN 100 MG CAPSULE PO (21:09)
[2024-09-18] VITALS (21 sets, daily range): BP systolic 92–142; BP diastolic 52–97; PULSE 74–119; RESP 17–29; TEMP 36.1–36.6; O2SAT 76–99
[2024-09-18] MEDS: MG HYD/AL HYD/SIME (Maalox Reg) SUSP 30 ML UDC PO (02:37)
[2024-09-18] MEDS: HYDROcodone/APAP 5/325 TABLET 1 TAB PO (02:37)
[2024-09-18] MEDS: ALBUTEROL/IPRATROPIUM (Duoneb) RT SOL 3 ML NEBU INH ×6 (02:40→22:05)
[2024-09-18] MEDS: CEFEPIME INJ 2 GM in SODIUM CHLORIDE 0.9% (Popper) 50 ML IV ×2 (05:15→14:16)
[2024-09-18] MEDS: GABAPENTIN 100 MG CAPSULE PO ×3 (05:16→21:38)
[2024-09-18] MEDS: NALOXEGOL OXALATE 25 MG TABLET (NON-FORMULARY) PO (05:16)
[2024-09-18 06:13] LABS: Basophils # (Auto) 0.1 Thou/mm3 (0.0-0.2); Basophils % (Auto) 0 % (0-2.5); Eosinophils # (Auto) 0.1 Thou/mm3 (0.0-0.5); Eosinophils % (Auto) 0 % (0-10); Hematocrit 29.8 % (36.0-46.0); Hemoglobin 9.9 g/dL (12.0-16.0); Immature Granulocytes Auto 0.29 Thou/mm3 (0.00-0.00); Lymphocytes # (Auto) 1.2 Thou/mm3 (1.0-4.8); Lymphocytes % (Auto) 4 % (10-50); Mean Corpuscular HGB Conc 33.2 g/dl (31.0-37.0); Mean Corpuscular Hemoglobin 32.5 pg (25.0-35.0); Mean Corpuscular Volume 98 fL (80-100); Monocytes # (Auto) 2.7 Thou/mm3 (0.0-0.8); Monocytes % (Auto) 9 % (0-12); Neutrophils # (Auto) 24.5 Thou/mm3 (1.8-7.7); Neutrophils % (Auto) 85 % (37-80); Nucleated Red Blood Cell # 0.00 Thou/mm3 (0.00-0.00); Nucleated Red Blood Cell % 0 /100 WBC (0); Platelet Count 221 Thou/mm3 (140-440); RDW Standard Deviation 72.7 fL (36.4-46.3); Red Blood Count 3.05 Miln/mm3 (4.00-5.20); White Blood Count 28.8 Thou/mm3 (3.6-11.0)
[2024-09-18 06:28] LABS: Alanine Aminotransferase 47 U/L (10-49); Albumin, Serum 2.6 gm/dL (3.4-4.8); Albumin/Globulin Ratio 0.8 (1.2-2.2); Alkaline Phosphatase 192 U/L (46-116); Anion Gap 7 (7-16); Aspartate Amino Transferase 66 U/L (0-34); BUN/Creatinine Ratio 45 Ratio (12-20); Bilirubin,Total 2.6 mg/dL (0.3-1.2); Blood Urea Nitrogen 27 mg/dL (9-23); Calcium 9.2 mg/dL (8.3-10.6); Calcium (Corrected) 10.3 mg/dL (8.5-10.1); Carbon Dioxide 26.7 mMol/L (20.0-31.0); Chloride 104 mMol/L (98-107); Creatinine (Component) 0.6 mg/dL (0.6-1.3); Estimated Creatinine Clearance 90.2 mL/min (>60); Globulin 3.4 gm/dL (2.3-3.5); Glucose 93 mg/dL (74-106); Magnesium 2.0 mg/dL (1.6-2.6); Osmolality,Calculated 280 (275-295); Phosphorous 2.8 mg/dL (2.4-5.1); Potassium 3.8 mMol/L (3.4-5.1); Sodium 138 mMol/L (136-145); Total Protein 6.0 gm/dL (5.7-8.2); eGFR > 60 See Note
[2024-09-18] MEDS: HYDROmorphone INJ 2 MG/ML VIAL 0.5 MG IVP ×4 (07:47→21:40)
[2024-09-18] MEDS: AMIODARONE HCL 200 MG TABLET PO ×2 (09:00→20:24)
[2024-09-18] MEDS: ENOXAPARIN SOD INJ 40 MG/0.4 ML SYRINGE SC (09:01)
--- NOTE | 2024-09-18 10:30 | PC.NURSE ---
[place] response initiated due to oxygen saturations of 76% on 10L via oxy mask. Patient alert and oriented x 4/ Patient repeatedly stated she wants to let go . When asked for clarifications, she expressed that she is tired and does not wish to receive further interventions. Patient reported pain rated 10/10 all over despite administration of pain medications (see MAR). MD at bedside, discussed current status with patients son via phone. Son will be present in the morning to discuss goals of care. Multiple medications administered, see MAR. Oxygen saturations improved to 90% on 10L oxy mask after administration of medications. Will continue to monitor.
[2024-09-18] MEDS: FUROSEMIDE INJ 10 MG/ML VIAL 2 ML 20 MG IVP ×2 (12:56→18:29)
[2024-09-18] MEDS: ALBUMIN HUMAN 25% IVPB 25 GM/100 ML BTL IV ×2 (12:56→18:29)
--- NOTE | 2024-09-18 15:02 | PC.SS ---
Rounding note: plan is to continue diereses; patient has fluid overload. Not ready for d/c.
--- NOTE | 2024-09-18 16:44 | ESPR_ITS ---
Documentation for date of: 09/18/24 Subjective Subjective Interval history: No overnight events. Patient seen and examined at bedside, more alert and awake than yesterday. Endorses back pain, chronic. Denies fevers, chills, SOB, chest pain, nausea, vomiting. Gave albumin with lasix for 3rd-spacing. Misc. order to assist with feeds. Will continue with bowel regiment. Per nurse, patient had 2 large volume stools overnight. Exam Vital Signs Temp Pulse Resp BP Pulse Ox O2 Del Method O2 Flow Rate 97.2 F 112 H 25 H 117/57 L 90 L Oxy Mask 7 09/18/24 16:00 09/18/24 16:00 09/18/24 16:00 09/18/24 16:00 09/18/24 16:00 09/18/24 16:00 09/18/24 16:00 Narrative Exam General: Awake. HEENT: Normocephalic, atraumatic, mucous membranes moist. Heart: Regular rate and rhythm, no murmurs. No JVD Lungs: Lungs clear to auscultation bilaterally Abdomen: Soft, nondistended, nontender. ?No guarding or rebound tenderness. Neurologic: Alert and oriented x3, no gross neurological deficit, and patient able to move all 4 extremities. Generalized weakness. Extremities: Bilateral pitting 2+ pedal edema noted Skin: No rash or ecchymoses. Objective Labs 09/19/24 07:50 09/19/24 07:50 Labs: Laboratory Results - last 24 hr 09/18/24 05:17 WBC 28.8 H RBC 3.05 L Hgb 9.9 L Hct 29.8 L MCV 98 MCH 32.5 MCHC 33.2 RDW Std Deviation 72.7 H Plt Count 221 D Neut % (Auto) 85 H Lymph % (Auto) 4 L [place] % (Auto) 9 Eos % (Auto) 0 Baso % (Auto) 0 Neut # (Auto) 24.5 H Lymph # (Auto) 1.2 [place] # (Auto) 2.7 H Eos # (Auto) 0.1 Baso # (Auto) 0.1 Immature Gran # (Auto) 0.29 H Absolute Nucleated RBC 0.00 Immature Gran % 1 H Nucleated RBC % 0 Sodium 138 Potassium 3.8 Chloride 104 Carbon Dioxide 26.7 Anion Gap 7 BUN 27 H Creatinine 0.6 Estim Creat Clear Calc 90.2 eGFR > 60 BUN/Creatinine Ratio 45 H Glucose 93 Calculated Osmolality 280 Calcium 9.2 Corrected Calcium 10.3 H Phosphorus 2.8 Magnesium 2.0 Total Bilirubin 2.6 H D AST 66 H ALT 47 Alkaline Phosphatase 192 H Total Protein 6.0 Albumin 2.6 L Globulin 3.4 Albumin/Globulin Ratio 0.8 L ABG Interpretation ABG results: 09/07/24 14:37 ABG pH 7.44 ABG pCO2 46 ABG pO2 65 L ABG HCO3 31 H ABG O2 Saturation 93 ABG Base Excess 6 H Quality Measures Quality Measures VTE prophylaxis Advance care planning discussed with:: patient Assessment & Plan Assessment Current Active Medications: Generic Name Dose Route Start Last Admin Trade Name Freq PRN Reason Stop Dose Admin Acetaminophen 650 mg 09/18/24 08:28 Acetaminophen 325 Mg Tablet PO 10/07/24 18:36 Q6H PRN PAIN 1-3 OR FEVER > 100.4 Albuterol/Ipratropium 3 ml 09/13/24 15:00 09/18/24 15:28 Albuterol/Ipratropium (Duoneb) Rt Lauren 3 Ml Nebu INH 10/13/24 14:59 3 ml Q4HRRT GHADA Administration Amiodarone HCl 200 mg 09/08/24 19:00 09/18/24 09:00 Amiodarone Hcl 200 Mg Tablet PO 10/08/24 18:59 200 mg BID GHADA Administration Benzonatate 200 mg 09/12/24 09:27 Benzonatate 100 Mg Capsule PO 10/12/24 09:26 Q8HR PRN COUGH Protocol Bisacodyl 10 mg 09/07/24 21:29 Bisacodyl 10 Mg Supp RI 10/07/24 21:28 QDAY PRN Constipation Protocol Collagenase 0 gm 09/11/24 21:00 09/17/24 20:23 Collagenase Oint 30 Gm Tube TOP 10/11/24 20:59 1 applicatio HS GHADA Administration Dextrose 25 ml 09/14/24 09:32 Dextrose 50%-Water Inj 50 Ml Syringe IV 10/14/24 09:31 Q15MIN PRN BG 50-70 responsive npo pt Dextrose 50 ml 09/14/24 09:32 Dextrose 50%-Water Inj 50 Ml Syringe IV 10/14/24 09:31 Q15MIN PRN BG <50 OR BG <70 & pt unresponsive Enoxaparin Sodium 40 mg 09/15/24 15:15 09/18/24 09:01 Enoxaparin Sod Inj 40 Mg/0.4 Ml Syringe SC 09/29/24 15:14 40 mg QDAY GHADA Administration Gabapentin 100 mg 09/07/24 22:00 09/18/24 14:16 Gabapentin 100 Mg Capsule PO 10/07/24 21:59 100 mg TID GHADA Administration Glucagon 1 mg 09/14/24 09:32 Glucagon Inj 1 Mg Vial IM Q15MIN PRN BG <70, and no IV access Hydromorphone HCl 0.5 mg 09/15/24 14:47 09/18/24 13:09 Hydromorphone Inj 2 Mg/Ml Vial IVP 09/20/24 14:46 0.5 mg Q4HR PRN Administration PAIN SCALE 4-10(Mod-Sev Cefepime HCl 2 gm/ Sodium 50 mls @ 100 mls/hr 09/15/24 16:45 09/18/24 14:16 Chloride IV 09/22/24 16:44 100 mls/hr Q8HR GHADA Administration Magnesium Hydroxide 30 ml 09/07/24 21:29 Milk Of Magnesia Susp 30 Ml Udc PO 10/07/24 21:28 QDAY PRN CONSTIPATION Protocol Morphine Sulfate 15 mg 09/18/24 21:00 Morphine Sulf 15 Mg Tabcr PO 09/23/24 20:59 Q12HR GHADA Protocol Naloxegol 25 mg 09/17/24 15:15 09/18/24 05:16 Naloxegol Oxalate 25 Mg Tablet (Non-Formulary) PO 10/17/24 15:14 25 mg ACBR GHADA Administration Ondansetron HCl 4 mg 09/15/24 15:01 09/17/24 20:07 Ondansetron Inj 2 Mg/Ml Inj 2 Ml IVP 10/15/24 15:00 4 mg Q8HR PRN Administration NAUSEA OR VOMITING Protocol Pantoprazole Sodium 40 mg 09/08/24 09:00 09/18/24 09:01 Pantoprazole Inj 40 Mg Vial IVP 10/08/24 08:59 40 mg QDAY GHADA Administration Spironolactone 25 mg 09/13/24 15:45 09/15/24 08:24 Spironolactone 25 Mg Tablet PO 10/13/24 15:44 25 mg QDAY GHADA Administration Plan Nneka Burciaga is a 74-year-old female with a history of enlarged CBD s/p ERCP on 07/2024, COPD on 2 L home O2, HFpEF (60% on 07/2024), a-fib on Xarelto, hypertension, and chronic pain on home morphine who is admitted for AHRF secondary to pneumonia secondary to possible aspiration event, currently hospitalized due to fatigue and feeling weak. #Constipation, likely ileus #Pancreatitis ruled out Patient now complains of postprandial pain, epigastric tenderness, CT scan showed possible 20 mm pancreatic pseudocyst with surrounding pancreatic edema. Lipase WNL. Dr. Carrillo placed biliary stent in July 2024, was consulted. Based on imaging, no need for interventional procedure, but will continue to follow. ESR 83, CRP 10.4. Patient KUB showed extensive stool in colon with colonic dilation. Spoke with general surgeon, who recommended Gastrografin enema to evaluate for obstruction. MRI and HIDA scan unremarkable. Gatrograffin showed heavy stool burden, no volvulus/obstruction. Per Dr. Carrillo, no need for ERCP. Patient no longer vomiting, NG tube D/C. Patient had large volume bowel movements with addition of Movantik, continue to monitor. Plan: - Dr. Carrillo consulted, appreciate recommendations - resume diet, full liquid - [place] for pain control - Patient antibiotics changed to cefepime for broader coverage - Movantik 25mg PO daily #Acute on chronic hypoxic respiratory failure secondary to possible aspiration event, resolved #Right lower lobe pneumonia hospital-acquired #Lactic acidosis, resolved #fatigue, improving Patient was in normal state of health prior to admission and per son she had an episode of emesis when eating. Given acuity of patient's presentation and CXR findings, etiology may be due to aspiration. However, at bedside in ED vital monitor showed what appeared to be VT/VF and thus will refrain from QTc prolonging agents (i.e. doxycycline, metronidazole). In ED, she was saturating in mid-90s on 15 L oxymask. At baseline, she utilizes 2 L oxygen mostly when sleeping and longstanding history of smoking and likely has COPD for which can keep O2 titrated between 88-92%. 09/10/2024: Oxygen saturation at 94% on 4L NC. - CXR (09/12) shows significant Bilateral PNA ? Discontinue ceftriaxone and doxycycline. Plan: ? Patient changed to cefepime - Monitor for clinical deterioration. ? Blood cultures 09/07: NGTD ? Supplemental oxygen as needed ? Keep oxygen titrated between 88 and 92% #Chronic Leukocytosis, reactive vs inflammatory vs infective process Patient has a history of reactive and infectious etiologies for leukocytosis on previous admissions. WBC have been elevated >20 this admission, consistent with previous admissions. Peripheral smear done 07/2024 reported reactive leukocytosis with no morphological abnormality identified. - Peripheral smear pathology rechecked 09/07/2024 showing similar findings as month before of reactive leukocytosis with no morphological abnormality identified with Mild normocytic anemia without hemolysis. Plan: ? Technology Sales Representative suggested that most likely leukocytosis is reactive. No further investigation required. ? Monitor for fever spike, continuing antibiotic therapy #Failure to thrive Patient is not able to eat and drink by her own self. Family reports general decline over several months. Discussion was performed today with patient's son regarding hospice, however [facility] will not accept patient as hospice. Son prefers to have pateint go to [facility], not on hospice. Plan: ? Nurse helping with eating and drinking ? Blood sugar checks every 6 hourly ? Hypoglycemia protocol in place ? Aspiration precautions - ensure supplements for meals #Liver cirrhosis possibly MASH #Biliary stricture s/p ERCP and stent placement #Transaminitis #Hyperbilirubinemia Previously admitted for enlarged CBD and underwent ERCP on 08/01/2024 for which a stent was placed. After procedure, she continued to have elevated T. bili and transaminitis and again presents with relatively similar values. CT abdomen pelvis showed prominent right base pneumonia. Significant hepatomegaly. Mild ascites. Edema around pancreas with 20 mm radiolucency in the pancreatic head with possible pseudocyst. Plan: ? Monitor fluid status - Lasix with albumin x1 ? Outpatient GI follow-up #Atrial fibrillation on Xarelto, rate controlled In ED library monitor revealed wide QRS complexes with heart rate above 100 bpm and concern for nonsustained VT. Cardiology evaluated patient and stated that patient likely has a rate-related BBB due to underlying conditions such as infection and/or dehydration. QRS complexes have similar morphology, however during VT they tend to have more uniform and narrower QRS complexes in comparison to BBB with a typical shape that is different from baseline. VT typically has a higher heart rate above 150 and is sustained or paroxysmal. At baseline, rhythm is a-fib and appearance of BBB on top of that may confuse the diagnosis with VT. Plan: ? Per cardiology recs, continue PO amiodarone 200 mg BID ? Continue treating underlying cause ? Close monitoring of hemodynamics ? Lovenox 40 mg subcu daily #HFpEF (60% on 07/2024) Follows Dr. Browning outpatient. Does not appear to be fluid overload on exam, no vascular congestion on CXR, and CBC shows what appears to be hemoconcentration given elevated WBC, hemoglobin, and platelets though may be reactive thrombocytosis. Additionally, presents with SAPPHIRE given previous creatinine of 0.7 and now presents with creatinine of 1.0 with BUN/creatinine ratio > 20. Thus, patient likely overall dehydrated and will hold diuretics at this time. 300 cc NS bolus, can give additional IVF if indicated. ? Cardiology following as above Plan: ? Strict KEVIN's ? Fluid restriction #Chronic pain ? Gabapentin 100 mg p.o. three times daily ? Morphine ER 15 mg twice per day #COPD on 2 L home O2 Does not have any inhalers at home per son. ? Duonebs as needed Hospital management: Disposition: IV antibiotics, blood cultures NGTD. Discussion performed with patient's son regarding hospice. Diet: Full liquid diet, w/ ensure Lines: PIV DVT prophylaxis: Lovenox GI prophylaxis: pantoprazole CODE STATUS: DNR/DNI Plan of care discussed with attending physician, Dr. Heavenly Barcenas MD PGY?2 Attending Provider Attestation/Addendum I, Seema Burdick, DO, attest that I was physically present for the pearson portions of the service and evaluated the patient with the resident and I reviewed and discussed the case with the resident and agree with the resident's findings and plans of care as documented above Patient seen and evaluated this AM. She is much more alert and complains of pain in her neck. Patient has a friend at bedside who states she has dealt with chronic back pain for several years. Patient is able to tolerate PO intake. Will restart her home oral morphine. Patient has had episodes of desaturation. CXR was done in the evening showing RUL pneumonia. Suspect aspiration. Will switch abx coverage to IV zosyn. Pt otherwise afebrile. Per nurse at bedside, patient had two large BMs after gastrograffin enema, although that was not documented. Will restart xarelto.
--- NOTE | 2024-09-18 18:00 | ESPR_ITS ---
<Statement entered by Jason Browning MD - 09/22/24 18:18> I personally examined the patient evaluated the patient with the resident physician patient appears to be doing poorly still having a lot of pain not eating well has nausea does not complain of any cardiac symptoms chest pain cardiovascular stable A-fib rate controlled. Does not complain of any other issues agree with the treatment plan recommendation as documented from the cardiology point of view by Dr. Christian Ashley PGY 2 will continue to monitor the patient closely, Gastroenterology is following the patient as well no plans for any ERCP. Documentation for date of: 09/19/24 Subjective Subjective Interval history: Patient is seen and examined at bedside No acute overnight events. Still complaining of difficulty in breathing and discomfort throughout the abdomen. vitals are stable and patient is still on oxygen through nasal cannula Overall patient appears ill looking. Labs showed downtrending leukocytosis Primary team started her on albumin infusions and diuresis Recommend to continue current management Exam Vital Signs Temp Pulse Resp BP Pulse Ox O2 Del Method O2 Flow Rate 97.6 F 97 18 97/64 95 Oxy Mask 5 09/19/24 07:47 09/19/24 16:00 09/19/24 07:47 09/19/24 08:33 09/19/24 07:47 09/19/24 07:47 09/19/24 07:47 Narrative Exam General: Awake. HEENT: Normocephalic, atraumatic, mucous membranes moist. Heart: Regular rate and rhythm, no murmurs. No JVD Lungs: B/L coarse breath sounds are heard Abdomen: Soft, nondistended, tenderness noted mainly in the right upper quadrant and right lower quadrant, positive bowel sounds. ?No guarding or rebound tenderness. Neurologic: Alert and oriented x3, no gross neurological deficit, and patient able to move all 4 extremities. Noted left upper extremity swelling Extremities: Bilateral pitting 2+ pedal edema noted Skin: No rash or ecchymoses. Patient's abdominal with the patient Objective Labs 09/19/24 07:50 09/19/24 07:50 Labs: Laboratory Results - last 24 hr 09/19/24 07:50 WBC 23.3 H D RBC 2.77 L Hgb 9.1 L Hct 27.6 L MCV 100 MCH 32.9 MCHC 33.0 RDW Std Deviation 73.8 H Plt Count 233 Neut % (Auto) 82 H Lymph % (Auto) 6 L [place] % (Auto) 11 Eos % (Auto) 1 Baso % (Auto) 0 Neut # (Auto) 19.0 H Lymph # (Auto) 1.3 [place] # (Auto) 2.6 H Eos # (Auto) 0.2 Baso # (Auto) 0.0 Immature Gran # (Auto) 0.20 H Absolute Nucleated RBC 0.00 Immature Gran % 1 H Nucleated RBC % 0 Sodium 139 Potassium 3.5 Chloride 102 Carbon Dioxide 30.5 Anion Gap 7 BUN 27 H Creatinine 0.8 Estim Creat Clear Calc 67.1 eGFR > 60 BUN/Creatinine Ratio 34 H Glucose 84 Calculated Osmolality 281 Calcium 8.8 ABG Interpretation ABG results: 09/07/24 14:37 ABG pH 7.44 ABG pCO2 46 ABG pO2 65 L ABG HCO3 31 H ABG O2 Saturation 93 ABG Base Excess 6 H Quality Measures Quality Measures VTE prophylaxis Advance care planning discussed with:: patient Assessment & Plan Assessment Current Active Medications: Generic Name Dose Route Start Last Admin Trade Name Freq PRN Reason Stop Dose Admin Acetaminophen 650 mg 09/18/24 08:28 09/19/24 03:57 Acetaminophen 325 Mg Tablet PO 10/07/24 18:36 650 mg Q6H PRN Administration PAIN 1-3 OR FEVER > 100.4 Artificial Tears 1 drop 09/19/24 10:53 Artificial Tears 225 Drop/15 Ml Btl BOTH EYES 10/19/24 10:52 Q4HR PRN Dry eyes Benzonatate 200 mg 09/12/24 09:27 Benzonatate 100 Mg Capsule PO 10/12/24 09:26 Q8HR PRN COUGH Protocol Bisacodyl 10 mg 09/07/24 21:29 Bisacodyl 10 Mg Supp NM 10/07/24 21:28 QDAY PRN Constipation Protocol Bisacodyl 10 mg 09/20/24 09:00 Bisacodyl 5 Mg Tabec PO 10/20/24 08:59 QDAY GHADA Gabapentin 100 mg 09/07/24 22:00 09/19/24 15:40 Gabapentin 100 Mg Capsule PO 10/07/24 21:59 Not Given TID GHADA Glycopyrrolate 0.2 mg 09/19/24 10:53 Glycopyrrolate Inj 0.2 Mg/Ml Vial IV 10/19/24 10:52 QID PRN As needed for secretions Morphine Sulfate 100 mls @ 1 mls/hr 09/19/24 11:49 09/19/24 13:34 Morphine Sulfate Iv Drip 100mg/100ml IV 09/24/24 11:48 1 mg/hr .Q24H PRN 1 mls/hr PAIN (COMFORT CARE) Administration Protocol 1 MG/HR Lidocaine 1 patch 09/18/24 18:26 Lidocaine 5% 1 Patch TOP 10/18/24 18:25 UD PRN backPain Lorazepam 1 mg 09/19/24 10:53 Lorazepam 2 Mg/Ml Vial IVP 09/24/24 10:52 Q6HR PRN ANXIETY Magnesium Hydroxide 30 ml 09/07/24 21:29 Milk Of Magnesia Susp 30 Ml Udc PO 10/07/24 21:28 QDAY PRN CONSTIPATION Protocol Morphine Sulfate 2 mg 09/19/24 11:49 09/19/24 17:55 Morphine Sulf Inj 10 Mg/Ml Vial IVP 09/24/24 11:48 2 mg Q30M PRN Administration PAIN Ondansetron HCl 4 mg 09/15/24 15:01 09/18/24 20:26 Ondansetron Inj 2 Mg/Ml Inj 2 Ml IVP 10/15/24 15:00 4 mg Q8HR PRN Administration NAUSEA OR VOMITING Protocol Sennosides 2 tab 09/19/24 21:00 Senna Tablet PO 10/19/24 20:59 HS GHADA Plan 74-year-old female with a past medical history of HFpEF with an EF of 60 to 65%, paroxysmal atrial fibrillation on anticoagulation, essential hypertension, recent admission with enlarged CBD status post ERCP in July 2024, obesity, hypothyroidism presented to the emergency department for further evaluation of hypoxia with questionable aspiration PNA. # Atrial fibrillation with RVR ---> CVR # Wide-complex tachycardia - self-resolved # HFpEF with an EF of 60 to 65% # Hypoalbuminemia - Patient presented to hospital with aspiration pneumonia. Primary team did start the patient on antibiotics. - Patient had history of atrial fibrillation with rapid ventricular rate and is on carvedilol 3.125 Mg twice daily, amiodarone 200 Mg twice daily, rivaroxaban 20 Mg p.o. at bedtime - Regarding the episode of wide complex tachycardia at 110 bpm unlikely VT but could be NSVT. Reviewed the previous EKGs and patient probably has rate related incomplete bundle branch block which could also be the differential. - Initially started on amiodarone bolus as well as drip and later changed to oral medication - Atrial fibrillation with RVR episode mostly secondary to SAPPHIRE and severe dehydration in the setting of possible aspiration pneumonia and poor oral intake. - Echo on 07/2024- normal-sized left ventricle with normal left wall thickness wall motion ejection fraction of approximately 60%. Mildly dilated left atrium. Plan - Patient does not appear to be in acute heart failure as of now but has anasarca, likely due to severe hypoalbuminemia - Recommended to continue amiodarone 200 Mg p.o. twice daily for now and lovenox 40Qday - Okay to hold anticoagulation for now - Can continue albumin and furosemide for now but patient doesnt appear to be in acute decompensation - Recommended to monitor blood pressures and titrate medications as needed - Keep potassium greater than 4 and magnesium greater than 2 #Acute on chronic hypoxic respiratory failure secondary to possible aspiration event #Right lower lobe pneumonia #Lactic acidosis #Biliary stricture s/p ERCP and stent placement #Transaminitis #Hyperbilirubinemia #Chronic pain #COPD on 2 L home O2 Management of rest of the medical conditions as per primary team and other consultants. Patient plan of care was discussed with Heading And Priming Operator, Dr. Nam Ashley, PGY2
--- NOTE | 2024-09-18 18:22 | XR_ITS ---
Examination: AP chest single view TECHNIQUE: AP portable semiupright chest single view. Date and time: September 18, 2024 1836 hours Comparison September 16, 2024 INDICATIONS: Onset hypoxia today. FINDINGS: Extensive bilateral lung opacity, more diffuse in the right lung Enlarged cardiac contour with prominent vascular congestion Prominent osteopenia IMPRESSION: Bilateral pneumonia, severe in the right lung Mild to moderate associated heart failure
[2024-09-18] MEDS: Morphine Sulf 15 MG TABCR PO (20:25)
[2024-09-18] MEDS: LIDOCAINE 5% 1 PATCH TOP (20:25)
[2024-09-18] MEDS: ONDANSETRON INJ 2 MG/ML INJ 2 ML 4 MG IVP (20:26)
[2024-09-18] MEDS: PIPER/TAZO 3.375 GM PREMIX 3.375 GM/50 ML BAG IV (20:42)
[2024-09-18] MEDS: MIDODRINE 5 MG TABLET PO (21:38)
[2024-09-18] MEDS: RIVAROXABAN 10 MG TABLET 20 MG PO (21:38)
[2024-09-18] MEDS: COLLAGENASE OINT 30 GM TUBE TOP (22:11)
--- NOTE | 2024-09-18 22:22 | PD.RESEVENT ---
Documentation for date of: 09/18/24 Event Note Event Note: 09/18/2024: Rapid response called sometime around 10 PM for patient in room 375. Rapid was called as the patient was desaturating on 10 L OxiMax to an SpO2 level 83. Patient seen and assessed in hospital bed awake and oriented x 3; airway/breathing/circulation patent. Patient's SpO2 fluctuating from a low of 83 to a high of 94; patient has known case of COPD. On auscultation, patient has bilateral crackles. Patient stating that she would like to . Patient's son contacted and notified regarding the following; moreover, deferred goals of care discussion to the morning team. At this time, will discontinue blood draws and we will treat the patient with breathing treatments, IV Lasix 40 x 1 and IV albumin 12.5 x 1. Will continue monitor the patient for any acute changes. Hamzah Stovall, DO PGY-2 Internal Medicine - [facility] A rapid response was called for the patient this evening for acute hypoxia and respiratory distress, when we did get there the patient did have crackles in her lungs however SpO2 was 94% on 10 L. We were informed that the patient herself wanted comfort measures, she was ANO x 4 and stated that she did not want any further treatment and just wanted to . She understood very clearly the ramifications of any treatment. I did call the patient's son lance let him know about the rapid response and I did let him know about the patient's wishes and told him that he should if possible come to the hospital tomorrow morning to see his mother and discuss goals of care and possible comfort measures at that time although I did clearly explained to him that if his mother had the capacity to make her own decisions then that is her right to do so, he understood. The patient is otherwise stable, will continue to monitor, I did give an extra dose of Lasix with albumin lance, I also gave an extra dose of midodrine as not to drop her blood pressure too far, she was not hypotensive but she was on the softer side.
[2024-09-18] MEDS: ALBUMIN HUMAN 25% IVPB 12.5 GM/50 ML BTL IV (22:46)
[2024-09-18] MEDS: MIDODRINE 5 MG TABLET 10 MG PO (22:56)
[2024-09-18] MEDS: FUROSEMIDE INJ 10 MG/ML 4ML VIAL 40 MG IVP (23:50)
[2024-09-19] VITALS (13 sets, daily range): BP systolic 96–114; BP diastolic 55–79; PULSE 95–113; RESP 14–34; TEMP 36–36.4; O2SAT 90–99; BMI 36.0
[2024-09-19] MEDS: HYDROmorphone INJ 2 MG/ML VIAL 0.5 MG IVP ×2 (01:46→05:46)
[2024-09-19] MEDS: ALBUTEROL/IPRATROPIUM (Duoneb) RT SOL 3 ML NEBU INH ×2 (02:54→06:31)
[2024-09-19] MEDS: ACETAMINOPHEN 325 MG TABLET 650 MG PO (03:57)
[2024-09-19] MEDS: GABAPENTIN 100 MG CAPSULE PO (05:44)
[2024-09-19] MEDS: PIPER/TAZO 3.375 GM PREMIX 3.375 GM/50 ML BAG IV (05:46)
[2024-09-19] MEDS: NALOXEGOL OXALATE 25 MG TABLET (NON-FORMULARY) PO (05:46)
[2024-09-19 08:26] LABS: Anion Gap 7 (7-16); BUN/Creatinine Ratio 34 Ratio (12-20); Blood Urea Nitrogen 27 mg/dL (9-23); Calcium 8.8 mg/dL (8.3-10.6); Carbon Dioxide 30.5 mMol/L (20.0-31.0); Chloride 102 mMol/L (98-107); Creatinine (Component) 0.8 mg/dL (0.6-1.3); Estimated Creatinine Clearance 67.1 mL/min (>60); Glucose 84 mg/dL (74-106); Osmolality,Calculated 281 (275-295); Potassium 3.5 mMol/L (3.4-5.1); Sodium 139 mMol/L (136-145); eGFR > 60 See Note
[2024-09-19] MEDS: ALBUMIN HUMAN 25% IVPB 25 GM/100 ML BTL IV (08:32)
[2024-09-19] MEDS: FUROSEMIDE INJ 10 MG/ML VIAL 2 ML 20 MG IVP (08:32)
[2024-09-19] MEDS: AMIODARONE HCL 200 MG TABLET PO (08:33)
[2024-09-19] MEDS: Morphine Sulf 15 MG TABCR PO (08:34)
[2024-09-19 08:37] LABS: Basophils # (Auto) 0.0 Thou/mm3 (0.0-0.2); Basophils % (Auto) 0 % (0-2.5); Eosinophils # (Auto) 0.2 Thou/mm3 (0.0-0.5); Eosinophils % (Auto) 1 % (0-10); Hematocrit 27.6 % (36.0-46.0); Hemoglobin 9.1 g/dL (12.0-16.0); Immature Granulocytes Auto 0.20 Thou/mm3 (0.00-0.00); Lymphocytes # (Auto) 1.3 Thou/mm3 (1.0-4.8); Lymphocytes % (Auto) 6 % (10-50); Mean Corpuscular HGB Conc 33.0 g/dl (31.0-37.0); Mean Corpuscular Hemoglobin 32.9 pg (25.0-35.0); Mean Corpuscular Volume 100 fL (80-100); Monocytes # (Auto) 2.6 Thou/mm3 (0.0-0.8); Monocytes % (Auto) 11 % (0-12); Neutrophils # (Auto) 19.0 Thou/mm3 (1.8-7.7); Neutrophils % (Auto) 82 % (37-80); Nucleated Red Blood Cell # 0.00 Thou/mm3 (0.00-0.00); Nucleated Red Blood Cell % 0 /100 WBC (0); Platelet Count 233 Thou/mm3 (140-440); RDW Standard Deviation 73.8 fL (36.4-46.3); Red Blood Count 2.77 Miln/mm3 (4.00-5.20); White Blood Count 23.3 Thou/mm3 (3.6-11.0)
--- NOTE | 2024-09-19 10:45 | CHAP ---
Patient was visited by the Spiritual Care Volunteer who prayed for her. (Volunteer was in the hospital from 09:30-10:45).
--- NOTE | 2024-09-19 11:55 | PC.SS ---
SS update: per resident Dr. Yuen, a goals of care discussion was held and family and patient are agreeable to initiate comfort care measures today.
[2024-09-19] MEDS: Morphine IV Drip 100mg/100ml 100 ML IV (13:34)
--- NOTE | 2024-09-19 14:11 | ESPR_ITS ---
Documentation for date of: 09/19/24 Subjective Subjective Interval history: Rapid response for desaturation overnight. Night team gave lasix, albumin, and midodrine. Patient seen and examined at bedside. Patient endorsed desire to cease active interventions, accept end of life. Patient's son and grandson were at bedside, and were agreeable to initiating comfort care. Comfort care measures were initiated in accordance with patient preference. Exam Vital Signs Temp Pulse Resp BP Pulse Ox O2 Del Method O2 Flow Rate 97.6 F 100 18 97/64 95 Oxy Mask 5 09/19/24 07:47 09/19/24 12:00 09/19/24 07:47 09/19/24 08:33 09/19/24 07:47 09/19/24 07:47 09/19/24 07:47 Narrative Exam General: Awake. HEENT: Normocephalic, atraumatic, mucous membranes moist. Heart: Regular rate and rhythm, no murmurs. No JVD Lungs: Diffuse rhonchi, worse in upper lung maradiaga Abdomen: Soft, mild distention and tenderness.?No guarding or rebound tenderness. Neurologic: Alert and oriented x3, no gross neurological deficit, and patient able to move all 4 extremities. Generalized weakness. Lethargy. Extremities: Bilateral pitting 2+ pedal edema noted Skin: No rash or ecchymoses. Objective Labs 09/19/24 07:50 09/19/24 07:50 Labs: Laboratory Results - last 24 hr 09/19/24 07:50 WBC 23.3 H D RBC 2.77 L Hgb 9.1 L Hct 27.6 L MCV 100 MCH 32.9 MCHC 33.0 RDW Std Deviation 73.8 H Plt Count 233 Neut % (Auto) 82 H Lymph % (Auto) 6 L [place] % (Auto) 11 Eos % (Auto) 1 Baso % (Auto) 0 Neut # (Auto) 19.0 H Lymph # (Auto) 1.3 [place] # (Auto) 2.6 H Eos # (Auto) 0.2 Baso # (Auto) 0.0 Immature Gran # (Auto) 0.20 H Absolute Nucleated RBC 0.00 Immature Gran % 1 H Nucleated RBC % 0 Sodium 139 Potassium 3.5 Chloride 102 Carbon Dioxide 30.5 Anion Gap 7 BUN 27 H Creatinine 0.8 Estim Creat Clear Calc 67.1 eGFR > 60 BUN/Creatinine Ratio 34 H Glucose 84 Calculated Osmolality 281 Calcium 8.8 ABG Interpretation ABG results: 09/07/24 14:37 ABG pH 7.44 ABG pCO2 46 ABG pO2 65 L ABG HCO3 31 H ABG O2 Saturation 93 ABG Base Excess 6 H Quality Measures Quality Measures VTE prophylaxis Advance care planning discussed with:: patient and child Assessment & Plan Assessment Current Active Medications: Generic Name Dose Route Start Last Admin Trade Name Freq PRN Reason Stop Dose Admin Acetaminophen 650 mg 09/18/24 08:28 09/19/24 03:57 Acetaminophen 325 Mg Tablet PO 10/07/24 18:36 650 mg Q6H PRN Administration PAIN 1-3 OR FEVER > 100.4 Artificial Tears 1 drop 09/19/24 10:53 Artificial Tears 225 Drop/15 Ml Btl BOTH EYES 10/19/24 10:52 Q4HR PRN Dry eyes Benzonatate 200 mg 09/12/24 09:27 Benzonatate 100 Mg Capsule PO 10/12/24 09:26 Q8HR PRN COUGH Protocol Bisacodyl 10 mg 09/07/24 21:29 Bisacodyl 10 Mg Supp [place] 10/07/24 21:28 QDAY PRN Constipation Protocol Bisacodyl 10 mg 09/20/24 09:00 Bisacodyl 5 Mg Tabec PO 10/20/24 08:59 QDAY GHADA Gabapentin 100 mg 09/07/24 22:00 09/19/24 05:44 Gabapentin 100 Mg Capsule PO 10/07/24 21:59 100 mg TID GHADA Administration Glycopyrrolate 0.2 mg 09/19/24 10:53 Glycopyrrolate Inj 0.2 Mg/Ml Vial IV 10/19/24 10:52 QID PRN As needed for secretions Morphine Sulfate 100 mls @ 1 mls/hr 09/19/24 11:49 09/19/24 13:34 Morphine Sulfate Iv Drip 100mg/100ml IV 09/24/24 11:48 1 mg/hr .Q24H PRN 1 mls/hr PAIN (COMFORT CARE) Administration Protocol 1 MG/HR Lidocaine 1 patch 09/18/24 18:26 Lidocaine 5% 1 Patch TOP 10/18/24 18:25 UD PRN backPain Lorazepam 1 mg 09/19/24 10:53 Lorazepam 2 Mg/Ml Vial IVP 09/24/24 10:52 Q6HR PRN ANXIETY Magnesium Hydroxide 30 ml 09/07/24 21:29 Milk Of Magnesia Susp 30 Ml Udc PO 10/07/24 21:28 QDAY PRN CONSTIPATION Protocol Morphine Sulfate 2 mg 09/19/24 11:49 Morphine Sulf Inj 10 Mg/Ml Vial IVP 09/24/24 11:48 Q30M PRN PAIN Ondansetron HCl 4 mg 09/15/24 15:01 09/18/24 20:26 Ondansetron Inj 2 Mg/Ml Inj 2 Ml IVP 10/15/24 15:00 4 mg Q8HR PRN Administration NAUSEA OR VOMITING Protocol Sennosides 2 tab 09/19/24 21:00 Senna Tablet PO 10/19/24 20:59 HS GHADA Plan Nneka Burciaga is a 74-year-old female with a history of enlarged CBD s/p ERCP on 07/2024, COPD on 2 L home O2, HFpEF (60% on 07/2024), a-fib on Xarelto, hypertension, and chronic pain on home morphine who is admitted for AHRF secondary to pneumonia secondary to possible aspiration event, currently hospitalized due to fatigue and feeling weak. #Constipation, likely ileus #Pancreatitis ruled out Patient now complains of postprandial pain, epigastric tenderness, CT scan showed possible 20 mm pancreatic pseudocyst with surrounding pancreatic edema. Lipase WNL. Dr. Carrillo placed biliary stent in July 2024, was consulted. Based on imaging, no need for interventional procedure, but will continue to follow. ESR 83, CRP 10.4. Patient KUB showed extensive stool in colon with colonic dilation. Spoke with general surgeon, who recommended Gastrografin enema to evaluate for obstruction. MRI and HIDA scan unremarkable. Gatrograffin showed heavy stool burden, no volvulus/obstruction. Per Dr. Carrillo, no need for ERCP. Patient no longer vomiting, NG tube D/C. Patient had large volume bowel movements with addition of Movantik, continue to monitor. - Dr. Carrillo consulted, appreciate recommendations - resume diet, full liquid - Movantik 25mg PO daily - bowel regiment for comfort - comfort care measures #Acute on chronic hypoxic respiratory failure secondary to possible aspiration event, resolved #Right lower lobe pneumonia hospital-acquired #Lactic acidosis, resolved #fatigue, improving Patient was in normal state of health prior to admission and per son she had an episode of emesis when eating. Given acuity of patient's presentation and CXR findings, etiology may be due to aspiration. However, at bedside in ED vital monitor showed what appeared to be VT/VF and thus will refrain from QTc prolonging agents (i.e. doxycycline, metronidazole). In ED, she was saturating in mid-90s on 15 L oxymask. At baseline, she utilizes 2 L oxygen mostly when sleeping and longstanding history of smoking and likely has COPD for which can keep O2 titrated between 88-92%. 09/10/2024: Oxygen saturation at 94% on 4L NC. CXR (09/12) shows significant Bilateral PNA. Blood cultures 09/07: NGTD ? Supplemental oxygen as needed for comfort - comfort care, no other active treatment #Chronic Leukocytosis, reactive vs inflammatory vs infective process Patient has a history of reactive and infectious etiologies for leukocytosis on previous admissions. WBC have been elevated >20 this admission, consistent with previous admissions. Peripheral smear done 07/2024 reported reactive leukocytosis with no morphological abnormality identified. Peripheral smear pathology rechecked 09/07/2024 showing similar findings as month before of reactive leukocytosis with no morphological abnormality identified with Mild normocytic anemia without hemolysis. ? Spanish Lecturer suggested that most likely leukocytosis is reactive. No further investigation required. ? comfort care, no active treatment #Failure to thrive Patient is not able to eat and drink by her own self. Family reports general decline over several months. Discussion was performed today with patient's son regarding hospice, however [facility] will not accept patient as hospice. Son prefers to have pateint go to [facility], not on hospice. ? Nurse helping with eating and drinking as tolerated ? Aspiration precautions - ensure supplements for meals - comfort care, no active treatment #Liver cirrhosis possibly MASH #Biliary stricture s/p ERCP and stent placement #Transaminitis #Hyperbilirubinemia Previously admitted for enlarged CBD and underwent ERCP on 08/01/2024 for which a stent was placed. After procedure, she continued to have elevated T. bili and transaminitis and again presents with relatively similar values. CT abdomen pelvis showed prominent right base pneumonia. Significant hepatomegaly. Mild ascites. Edema around pancreas with 20 mm radiolucency in the pancreatic head with possible pseudocyst. - comfort care, no active treatment #Atrial fibrillation on Xarelto, rate controlled In ED panel monitor revealed wide QRS complexes with heart rate above 100 bpm and concern for nonsustained VT. Cardiology evaluated patient and stated that patient likely has a rate-related BBB due to underlying conditions such as infection and/or dehydration. QRS complexes have similar morphology, however during VT they tend to have more uniform and narrower QRS complexes in comparison to BBB with a typical shape that is different from baseline. VT typically has a higher heart rate above 150 and is sustained or paroxysmal. At baseline, rhythm is a-fib and appearance of BBB on top of that may confuse the diagnosis with VT. ? Cardiology following - comfort care, no active treatment #HFpEF (60% on 07/2024) Follows Dr. Browning outpatient. Does not appear to be fluid overload on exam, no vascular congestion on CXR, and CBC shows what appears to be hemoconcentration given elevated WBC, hemoglobin, and platelets though may be reactive thrombocytosis. Additionally, presents with SAPPHIRE given previous creatinine of 0.7 and now presents with creatinine of 1.0 with BUN/creatinine ratio > 20. Thus, patient likely overall dehydrated and will hold diuretics at this time. 300 cc NS bolus, can give additional IVF if indicated. ? Cardiology following as above - comfort care, no active treatment #Chronic pain ? Morphine drip per comfort care protocol #COPD on 2 L home O2 Does not have any inhalers at home per son. ? O2 for patient comfort Diet: Full liquid diet, w/ ensure Lines: PIV DVT prophylaxis: SCDs GI prophylaxis: Held CODE STATUS: DNR/DNI - comfort care Plan of care discussed with attending physician, Dr. Heavenly Barcenas MD PGY?2 Attending Provider Attestation/Addendum I, Seema Burdick, , attest that I was physically present for the pearson portions of the service and evaluated the patient with the resident and I reviewed and discussed the case with the resident and agree with the resident's findings and plans of care as documented above Patient seen and eval this a.m. Patient with scattered rhonchi and requiring increasing O2 requirements and increasing lethargy. Patient had rapid response due to desaturation. She remains on oxymask at this time. Overnight, patient reportedly stated that she did not want to undergo any further aggressive measures. Son and grandson were at bedside this a.m. during which patient expressed to be comfortable rather than pursue further aggressive measures. Family has decided to initiate comfort care measures as per patient's wishes.
[2024-09-19 15:36] LABS: Index Value <0.50
[2024-09-19] MEDS: MORPHINE SULF INJ 10 MG/ML VIAL 2 MG IVP ×2 (17:55→20:10)
--- NOTE | 2024-09-19 18:49 | ESPR_ITS ---
<Statement entered by Jason Browning MD - 09/22/24 18:18> I personally examined the patient evaluated the patient with the resident physician patient appears to be doing poorly still having a lot of pain not eating well has nausea does not complain of any cardiac symptoms chest pain cardiovascular stable A-fib rate controlled. Does not complain of any other issues agree with the treatment plan recommendation as documented from the cardiology point of view by Dr. Christian Ashley PGY 2 will continue to monitor the patient closely, Patient's family and herself agreed to be comfort care since she is not making any progress for several days and continues to be in a lot of pain. There may be also question of underlying malignancy though it was not confirmed Documentation for date of: 09/19/24 Subjective Subjective Interval history: Since patient is seen and examined at bedside Overnight, patient had 2 rapid responses and after discussing with the patient and her son, decided to go on comfort measures Discussed with the primary team. Will sign off from the patient's care Exam Vital Signs Temp Pulse Resp BP Pulse Ox O2 Del Method O2 Flow Rate 97.6 F 97 18 97/64 95 Oxy Mask 5 09/19/24 07:47 09/19/24 16:00 09/19/24 07:47 09/19/24 08:33 09/19/24 07:47 09/19/24 07:47 09/19/24 07:47 Narrative Exam General: Drowsy HEENT: Normocephalic, atraumatic, mucous membranes moist. Heart: Regular rate and rhythm, no murmurs. No JVD Lungs: B/L coarse breath sounds are heard Abdomen: Soft, nondistended, tenderness noted mainly in the right upper quadrant and right lower quadrant, positive bowel sounds. ?No guarding or rebound tenderness. Neurologic: Drowsy and under sedation Extremities: Bilateral pitting 2+ pedal edema noted Skin: No rash or ecchymoses. Patient's abdominal with the patient Objective Labs 09/19/24 07:50 09/19/24 07:50 Labs: Laboratory Results - last 24 hr 09/19/24 07:50 WBC 23.3 H D RBC 2.77 L Hgb 9.1 L Hct 27.6 L MCV 100 MCH 32.9 MCHC 33.0 RDW Std Deviation 73.8 H Plt Count 233 Neut % (Auto) 82 H Lymph % (Auto) 6 L [place] % (Auto) 11 Eos % (Auto) 1 Baso % (Auto) 0 Neut # (Auto) 19.0 H Lymph # (Auto) 1.3 [place] # (Auto) 2.6 H Eos # (Auto) 0.2 Baso # (Auto) 0.0 Immature Gran # (Auto) 0.20 H Absolute Nucleated RBC 0.00 Immature Gran % 1 H Nucleated RBC % 0 Sodium 139 Potassium 3.5 Chloride 102 Carbon Dioxide 30.5 Anion Gap 7 BUN 27 H Creatinine 0.8 Estim Creat Clear Calc 67.1 eGFR > 60 BUN/Creatinine Ratio 34 H Glucose 84 Calculated Osmolality 281 Calcium 8.8 ABG Interpretation ABG results: 09/07/24 14:37 ABG pH 7.44 ABG pCO2 46 ABG pO2 65 L ABG HCO3 31 H ABG O2 Saturation 93 ABG Base Excess 6 H Quality Measures Quality Measures VTE prophylaxis Advance care planning discussed with:: patient Assessment & Plan Assessment Current Active Medications: Generic Name Dose Route Start Last Admin Trade Name Freq PRN Reason Stop Dose Admin Acetaminophen 650 mg 09/18/24 08:28 09/19/24 03:57 Acetaminophen 325 Mg Tablet PO 10/07/24 18:36 650 mg Q6H PRN Administration PAIN 1-3 OR FEVER > 100.4 Artificial Tears 1 drop 09/19/24 10:53 Artificial Tears 225 Drop/15 Ml Btl BOTH EYES 10/19/24 10:52 Q4HR PRN Dry eyes Benzonatate 200 mg 09/12/24 09:27 Benzonatate 100 Mg Capsule PO 10/12/24 09:26 Q8HR PRN COUGH Protocol Bisacodyl 10 mg 09/07/24 21:29 Bisacodyl 10 Mg Supp [place] 10/07/24 21:28 QDAY PRN Constipation Protocol Bisacodyl 10 mg 09/20/24 09:00 Bisacodyl 5 Mg Tabec PO 10/20/24 08:59 QDAY GHADA Gabapentin 100 mg 09/07/24 22:00 09/19/24 15:40 Gabapentin 100 Mg Capsule PO 10/07/24 21:59 Not Given TID GHADA Glycopyrrolate 0.2 mg 09/19/24 10:53 Glycopyrrolate Inj 0.2 Mg/Ml Vial IV 10/19/24 10:52 QID PRN As needed for secretions Morphine Sulfate 100 mls @ 1 mls/hr 09/19/24 11:49 09/19/24 13:34 Morphine Sulfate Iv Drip 100mg/100ml IV 09/24/24 11:48 1 mg/hr .Q24H PRN 1 mls/hr PAIN (COMFORT CARE) Administration Protocol 1 MG/HR Lidocaine 1 patch 09/18/24 18:26 Lidocaine 5% 1 Patch TOP 10/18/24 18:25 UD PRN backPain Lorazepam 1 mg 09/19/24 10:53 Lorazepam 2 Mg/Ml Vial IVP 09/24/24 10:52 Q6HR PRN ANXIETY Magnesium Hydroxide 30 ml 09/07/24 21:29 Milk Of Magnesia Susp 30 Ml Udc PO 10/07/24 21:28 QDAY PRN CONSTIPATION Protocol Morphine Sulfate 2 mg 09/19/24 11:49 09/19/24 17:55 Morphine Sulf Inj 10 Mg/Ml Vial IVP 09/24/24 11:48 2 mg Q30M PRN Administration PAIN Ondansetron HCl 4 mg 09/15/24 15:01 09/18/24 20:26 Ondansetron Inj 2 Mg/Ml Inj 2 Ml IVP 10/15/24 15:00 4 mg Q8HR PRN Administration NAUSEA OR VOMITING Protocol Sennosides 2 tab 09/19/24 21:00 Senna Tablet PO 10/19/24 20:59 HS GHADA Plan 74-year-old female with a past medical history of HFpEF with an EF of 60 to 65%, paroxysmal atrial fibrillation on anticoagulation, essential hypertension, recent admission with enlarged CBD status post ERCP in July 2024, obesity, hypothyroidism presented to the emergency department for further evaluation of hypoxia with questionable aspiration PNA. # Atrial fibrillation with RVR ---> CVR # Wide-complex tachycardia - self-resolved # HFpEF with an EF of 60 to 65% # Hypoalbuminemia #Acute on chronic hypoxic respiratory failure secondary to possible aspiration event #Right lower lobe pneumonia #Lactic acidosis #Biliary stricture s/p ERCP and stent placement #Transaminitis #Hyperbilirubinemia #Chronic pain #COPD on 2 L home O2 - Patient is started on comfort measures and started on morphine drip Patient plan of care was discussed with Cloth Packer, Dr. Nam Ashley, PGY2
[2024-09-20] VITALS (10 sets, daily range): BP systolic 108–120; BP diastolic 53–83; PULSE 75–118; RESP 18–19; TEMP 36–36.1; O2SAT 84–99
[2024-09-20] MEDS: MORPHINE SULF INJ 10 MG/ML VIAL 2 MG IVP (00:31)
[2024-09-20] MEDS: LORazepam 2 MG/ML VIAL 1 MG IVP ×3 (01:22→23:45)
[2024-09-20 06:35] LABS: Aspergillus Ag, Ser* NOT DETECTED
--- NOTE | 2024-09-20 10:58 | CHAP ---
Patient was visited by the Spiritual Care Volunteer who prayed for them. (Volunteer was in the hospital from 09:30-10:58)
--- NOTE | 2024-09-20 15:36 | PC.SS ---
SS spoke to Marian at [facility] who stated they can take the pt back under skilled for wound care, respiratory care and comfort. If family ok with plan they can accept pt tomorrow.
--- NOTE | 2024-09-20 15:42 | PC.SS ---
SS contacted the pts son Santana [phone], in regards to transitioning the pt to [facility], per Santana he does not believe pt will make it very much longer. SS informed Santana we will follow up with him tomorrow to see if this is something he wishes to pursue depending on pt status.
--- NOTE | 2024-09-20 16:27 | PC.NURSE ---
Per collette Tidwell to d/c tele monitoring.
[2024-09-21] MEDS: Morphine IV Drip 100mg/100ml 100 ML IV (04:25)
[2024-09-21 06:00] VITALS: BMI 36.0
[2024-09-21] MEDS: LORazepam 2 MG/ML VIAL 1 MG IVP (06:23)
[2024-09-21 07:40] VITALS: BP 95/60; PULSE 112; RESP 14; TEMP 36; O2SAT 81
[2024-09-21 08:43] VITALS: PULSE 116; RESP 16; O2SAT 79
[2024-09-21] MEDS: MORPHINE SULF INJ 10 MG/ML VIAL 2 MG IVP (10:46)
[2024-09-21 12:00] VITALS: BP 89/50; PULSE 115; RESP 10; TEMP 36; O2SAT 70
--- NOTE | 2024-09-21 14:54 | PD.RESPRO ---
Documentation for date of: 09/20/24 Subjective Subjective Interval history: No overnight events. Patient remains on comfort care. Oxygen saturations decreasing. Morphine drip in place. Exam Vital Signs Temp Pulse Resp BP Pulse Ox O2 Del Method O2 Flow Rate 96.8 F 115 H 10 L 89/50 L 70 L Nasal Cannula 2 09/21/24 12:00 09/21/24 12:00 09/21/24 12:00 09/21/24 12:00 09/21/24 12:00 09/21/24 12:00 09/21/24 12:00 Narrative Exam Deferred for patient comfort. Objective Labs 09/19/24 07:50 09/19/24 07:50 ABG Interpretation ABG results: 09/07/24 14:37 ABG pH 7.44 ABG pCO2 46 ABG pO2 65 L ABG HCO3 31 H ABG O2 Saturation 93 ABG Base Excess 6 H Quality Measures Quality Measures VTE prophylaxis Advance care planning discussed with:: patient Assessment & Plan Assessment Current Active Medications: Generic Name Dose Route Start Last Admin Trade Name Freq PRN Reason Stop Dose Admin Acetaminophen 650 mg 09/18/24 08:28 09/19/24 03:57 Acetaminophen 325 Mg Tablet PO 10/07/24 18:36 650 mg Q6H PRN Administration PAIN 1-3 OR FEVER > 100.4 Artificial Tears 1 drop 09/19/24 10:53 Artificial Tears 225 Drop/15 Ml Btl BOTH EYES 10/19/24 10:52 Q4HR PRN Dry eyes Benzonatate 200 mg 09/12/24 09:27 Benzonatate 100 Mg Capsule PO 10/12/24 09:26 Q8HR PRN COUGH Protocol Bisacodyl 10 mg 09/07/24 21:29 Bisacodyl 10 Mg Supp RI 10/07/24 21:28 QDAY PRN Constipation Protocol Glycopyrrolate 0.2 mg 09/19/24 10:53 Glycopyrrolate Inj 0.2 Mg/Ml Vial IV 10/19/24 10:52 QID PRN As needed for secretions Morphine Sulfate 100 mls @ 1 mls/hr 09/19/24 11:49 09/21/24 04:25 Morphine Sulfate Iv Drip 100mg/100ml IV 09/24/24 11:48 3 mg/hr .Q24H PRN 3 mls/hr PAIN (COMFORT CARE) Administration Protocol 1 MG/HR Lidocaine 1 patch 09/18/24 18:26 Lidocaine 5% 1 Patch TOP 10/18/24 18:25 UD PRN backPain Lorazepam 1 mg 09/19/24 10:53 09/21/24 06:23 Lorazepam 2 Mg/Ml Vial IVP 09/24/24 10:52 1 mg Q6HR PRN Administration ANXIETY Magnesium Hydroxide 30 ml 09/07/24 21:29 Milk Of Magnesia Susp 30 Ml Udc PO 10/07/24 21:28 QDAY PRN CONSTIPATION Protocol Morphine Sulfate 2 mg 09/19/24 11:49 09/21/24 10:46 Morphine Sulf Inj 10 Mg/Ml Vial IVP 09/24/24 11:48 2 mg Q30M PRN Administration PAIN Ondansetron HCl 4 mg 09/15/24 15:01 09/18/24 20:26 Ondansetron Inj 2 Mg/Ml Inj 2 Ml IVP 10/15/24 15:00 4 mg Q8HR PRN Administration NAUSEA OR VOMITING Protocol Sennosides 2 tab 09/21/24 09:12 Senna Tablet PO 10/19/24 20:59 HS PRN Constipation Protocol Plan Nneka Burciaga is a 74-year-old female with a history of enlarged CBD s/p ERCP on 07/2024, COPD on 2 L home O2, HFpEF (60% on 07/2024), a-fib on Xarelto, hypertension, and chronic pain on home morphine who is admitted for AHRF secondary to pneumonia secondary to possible aspiration event, currently hospitalized due to fatigue and feeling weak. #Constipation, likely ileus #Pancreatitis ruled out Patient now complains of postprandial pain, epigastric tenderness, CT scan showed possible 20 mm pancreatic pseudocyst with surrounding pancreatic edema. Lipase WNL. Dr. Carrillo placed biliary stent in July 2024, was consulted. Based on imaging, no need for interventional procedure, but will continue to follow. ESR 83, CRP 10.4. Patient KUB showed extensive stool in colon with colonic dilation. Spoke with general surgeon, who recommended Gastrografin enema to evaluate for obstruction. MRI and HIDA scan unremarkable. Gatrograffin showed heavy stool burden, no volvulus/obstruction. Per Dr. Carrillo, no need for ERCP. Patient no longer vomiting, NG tube D/C. Patient had large volume bowel movements with addition of Movantik, continue to monitor. - Dr. Carrillo consulted, appreciate recommendations - resume diet, full liquid - Movantik 25mg PO daily - bowel regiment for comfort - comfort care measures #Acute on chronic hypoxic respiratory failure secondary to possible aspiration event, resolved #Right lower lobe pneumonia hospital-acquired #Lactic acidosis, resolved #fatigue, improving Patient was in normal state of health prior to admission and per son she had an episode of emesis when eating. Given acuity of patient's presentation and CXR findings, etiology may be due to aspiration. However, at bedside in ED vital monitor showed what appeared to be VT/VF and thus will refrain from QTc prolonging agents (i.e. doxycycline, metronidazole). In ED, she was saturating in mid-90s on 15 L oxymask. At baseline, she utilizes 2 L oxygen mostly when sleeping and longstanding history of smoking and likely has COPD for which can keep O2 titrated between 88-92%. 09/10/2024: Oxygen saturation at 94% on 4L NC. CXR (09/12) shows significant Bilateral PNA. Blood cultures 09/07: NGTD ? Supplemental oxygen as needed for comfort - comfort care, no other active treatment #Chronic Leukocytosis, reactive vs inflammatory vs infective process Patient has a history of reactive and infectious etiologies for leukocytosis on previous admissions. WBC have been elevated >20 this admission, consistent with previous admissions. Peripheral smear done 07/2024 reported reactive leukocytosis with no morphological abnormality identified. Peripheral smear pathology rechecked 09/07/2024 showing similar findings as month before of reactive leukocytosis with no morphological abnormality identified with Mild normocytic anemia without hemolysis. ? Flattening Press Operator suggested that most likely leukocytosis is reactive. No further investigation required. ? comfort care, no active treatment #Failure to thrive Patient is not able to eat and drink by her own self. Family reports general decline over several months. Discussion was performed today with patient's son regarding hospice, however [facility] will not accept patient as hospice. Son prefers to have pateint go to [facility], not on hospice. ? Nurse helping with eating and drinking as tolerated ? Aspiration precautions - ensure supplements for meals - comfort care, no active treatment #Liver cirrhosis possibly MASH #Biliary stricture s/p ERCP and stent placement #Transaminitis #Hyperbilirubinemia Previously admitted for enlarged CBD and underwent ERCP on 08/01/2024 for which a stent was placed. After procedure, she continued to have elevated T. bili and transaminitis and again presents with relatively similar values. CT abdomen pelvis showed prominent right base pneumonia. Significant hepatomegaly. Mild ascites. Edema around pancreas with 20 mm radiolucency in the pancreatic head with possible pseudocyst. - comfort care, no active treatment #Atrial fibrillation on Xarelto, rate controlled In ED quality assurance monitor final revealed wide QRS complexes with heart rate above 100 bpm and concern for nonsustained VT. Cardiology evaluated patient and stated that patient likely has a rate-related BBB due to underlying conditions such as infection and/or dehydration. QRS complexes have similar morphology, however during VT they tend to have more uniform and narrower QRS complexes in comparison to BBB with a typical shape that is different from baseline. VT typically has a higher heart rate above 150 and is sustained or paroxysmal. At baseline, rhythm is a-fib and appearance of BBB on top of that may confuse the diagnosis with VT. ? Cardiology following - comfort care, no active treatment #HFpEF (60% on 07/2024) Follows Dr. Browning outpatient. Does not appear to be fluid overload on exam, no vascular congestion on CXR, and CBC shows what appears to be hemoconcentration given elevated WBC, hemoglobin, and platelets though may be reactive thrombocytosis. Additionally, presents with SAPPHIRE given previous creatinine of 0.7 and now presents with creatinine of 1.0 with BUN/creatinine ratio > 20. Thus, patient likely overall dehydrated and will hold diuretics at this time. 300 cc NS bolus, can give additional IVF if indicated. ? Cardiology following as above - comfort care, no active treatment #Chronic pain ? Morphine drip per comfort care protocol #COPD on 2 L home O2 Does not have any inhalers at home per son. ? O2 for patient comfort Diet: Full liquid diet, w/ ensure Lines: PIV DVT prophylaxis: SCDs GI prophylaxis: Held CODE STATUS: DNR/DNI - comfort care Plan of care discussed with attending physician, Dr. Brooks. Danyel Marie MD PGY?2 Attending Provider Attestation/Addendum I attest that I was physically present for the evaluation, physical examination, lab and imaging review of the patient with the residents. I discussed the case with the residents and agree with the findings and plans of care as documented above. Patient appears sleepy and comfortable at bedside. Continues to be on comfort care measures. Unique Brooks MD
--- NOTE | 2024-09-21 15:00 | PD.RESPRO ---
Documentation for date of: 09/21/24 Subjective Subjective Interval history: No overnight events. Patient remains on comfort care. Oxygen saturations decreasing. Morphine drip in place. Exam Vital Signs Temp Pulse Resp BP Pulse Ox O2 Del Method O2 Flow Rate 96.8 F 115 H 10 L 89/50 L 70 L Nasal Cannula 2 09/21/24 12:00 09/21/24 12:00 09/21/24 12:00 09/21/24 12:00 09/21/24 12:00 09/21/24 12:00 09/21/24 12:00 Narrative Exam Deferred for patient comfort. Objective Labs 09/19/24 07:50 09/19/24 07:50 ABG Interpretation ABG results: 09/07/24 14:37 ABG pH 7.44 ABG pCO2 46 ABG pO2 65 L ABG HCO3 31 H ABG O2 Saturation 93 ABG Base Excess 6 H Quality Measures Quality Measures VTE prophylaxis Advance care planning discussed with:: patient and child Assessment & Plan Assessment Current Active Medications: Generic Name Dose Route Start Last Admin Trade Name Freq PRN Reason Stop Dose Admin Acetaminophen 650 mg 09/18/24 08:28 09/19/24 03:57 Acetaminophen 325 Mg Tablet PO 10/07/24 18:36 650 mg Q6H PRN Administration PAIN 1-3 OR FEVER > 100.4 Artificial Tears 1 drop 09/19/24 10:53 Artificial Tears 225 Drop/15 Ml Btl BOTH EYES 10/19/24 10:52 Q4HR PRN Dry eyes Benzonatate 200 mg 09/12/24 09:27 Benzonatate 100 Mg Capsule PO 10/12/24 09:26 Q8HR PRN COUGH Protocol Bisacodyl 10 mg 09/07/24 21:29 Bisacodyl 10 Mg Supp [place] 10/07/24 21:28 QDAY PRN Constipation Protocol Glycopyrrolate 0.2 mg 09/19/24 10:53 Glycopyrrolate Inj 0.2 Mg/Ml Vial IV 10/19/24 10:52 QID PRN As needed for secretions Morphine Sulfate 100 mls @ 1 mls/hr 09/19/24 11:49 09/21/24 04:25 Morphine Sulfate Iv Drip 100mg/100ml IV 09/24/24 11:48 3 mg/hr .Q24H PRN 3 mls/hr PAIN (COMFORT CARE) Administration Protocol 1 MG/HR Lidocaine 1 patch 09/18/24 18:26 Lidocaine 5% 1 Patch TOP 10/18/24 18:25 UD PRN backPain Lorazepam 1 mg 09/19/24 10:53 09/21/24 06:23 Lorazepam 2 Mg/Ml Vial IVP 09/24/24 10:52 1 mg Q6HR PRN Administration ANXIETY Magnesium Hydroxide 30 ml 09/07/24 21:29 Milk Of Magnesia Susp 30 Ml Udc PO 10/07/24 21:28 QDAY PRN CONSTIPATION Protocol Morphine Sulfate 2 mg 09/19/24 11:49 09/21/24 10:46 Morphine Sulf Inj 10 Mg/Ml Vial IVP 09/24/24 11:48 2 mg Q30M PRN Administration PAIN Ondansetron HCl 4 mg 09/15/24 15:01 09/18/24 20:26 Ondansetron Inj 2 Mg/Ml Inj 2 Ml IVP 10/15/24 15:00 4 mg Q8HR PRN Administration NAUSEA OR VOMITING Protocol Sennosides 2 tab 09/21/24 09:12 Senna Tablet PO 10/19/24 20:59 HS PRN Constipation Protocol Plan Nneka Burciaga is a 74-year-old female with a history of enlarged CBD s/p ERCP on 07/2024, COPD on 2 L home O2, HFpEF (60% on 07/2024), a-fib on Xarelto, hypertension, and chronic pain on home morphine who is admitted for AHRF secondary to pneumonia secondary to possible aspiration event, currently hospitalized due to fatigue and feeling weak. #Constipation, likely ileus #Pancreatitis ruled out Patient now complains of postprandial pain, epigastric tenderness, CT scan showed possible 20 mm pancreatic pseudocyst with surrounding pancreatic edema. Lipase WNL. Dr. Carrillo placed biliary stent in July 2024, was consulted. Based on imaging, no need for interventional procedure, but will continue to follow. ESR 83, CRP 10.4. Patient KUB showed extensive stool in colon with colonic dilation. Spoke with general surgeon, who recommended Gastrografin enema to evaluate for obstruction. MRI and HIDA scan unremarkable. Gatrograffin showed heavy stool burden, no volvulus/obstruction. Per Dr. Carrillo, no need for ERCP. Patient no longer vomiting, NG tube D/C. Patient had large volume bowel movements with addition of Movantik, continue to monitor. - Dr. Carrillo consulted, appreciate recommendations - resume diet, full liquid - Movantik 25mg PO daily - bowel regiment for comfort - comfort care measures #Acute on chronic hypoxic respiratory failure secondary to possible aspiration event, resolved #Right lower lobe pneumonia hospital-acquired #Lactic acidosis, resolved #fatigue, improving Patient was in normal state of health prior to admission and per son she had an episode of emesis when eating. Given acuity of patient's presentation and CXR findings, etiology may be due to aspiration. However, at bedside in ED vital monitor showed what appeared to be VT/VF and thus will refrain from QTc prolonging agents (i.e. doxycycline, metronidazole). In ED, she was saturating in mid-90s on 15 L oxymask. At baseline, she utilizes 2 L oxygen mostly when sleeping and longstanding history of smoking and likely has COPD for which can keep O2 titrated between 88-92%. 09/10/2024: Oxygen saturation at 94% on 4L NC. CXR (09/12) shows significant Bilateral PNA. Blood cultures 09/07: NGTD ? Supplemental oxygen as needed for comfort - comfort care, no other active treatment #Chronic Leukocytosis, reactive vs inflammatory vs infective process Patient has a history of reactive and infectious etiologies for leukocytosis on previous admissions. WBC have been elevated >20 this admission, consistent with previous admissions. Peripheral smear done 07/2024 reported reactive leukocytosis with no morphological abnormality identified. Peripheral smear pathology rechecked 09/07/2024 showing similar findings as month before of reactive leukocytosis with no morphological abnormality identified with Mild normocytic anemia without hemolysis. ? Sports Agent suggested that most likely leukocytosis is reactive. No further investigation required. ? comfort care, no active treatment #Failure to thrive Patient is not able to eat and drink by her own self. Family reports general decline over several months. Discussion was performed today with patient's son regarding hospice, however [facility] will not accept patient as hospice. Son prefers to have pateint go to [facility], not on hospice. ? Nurse helping with eating and drinking as tolerated ? Aspiration precautions - ensure supplements for meals - comfort care, no active treatment #Liver cirrhosis possibly MASH #Biliary stricture s/p ERCP and stent placement #Transaminitis #Hyperbilirubinemia Previously admitted for enlarged CBD and underwent ERCP on 08/01/2024 for which a stent was placed. After procedure, she continued to have elevated T. bili and transaminitis and again presents with relatively similar values. CT abdomen pelvis showed prominent right base pneumonia. Significant hepatomegaly. Mild ascites. Edema around pancreas with 20 mm radiolucency in the pancreatic head with possible pseudocyst. - comfort care, no active treatment #Atrial fibrillation on Xarelto, rate controlled In ED secured entrance monitor revealed wide QRS complexes with heart rate above 100 bpm and concern for nonsustained VT. Cardiology evaluated patient and stated that patient likely has a rate-related BBB due to underlying conditions such as infection and/or dehydration. QRS complexes have similar morphology, however during VT they tend to have more uniform and narrower QRS complexes in comparison to BBB with a typical shape that is different from baseline. VT typically has a higher heart rate above 150 and is sustained or paroxysmal. At baseline, rhythm is a-fib and appearance of BBB on top of that may confuse the diagnosis with VT. ? Cardiology following - comfort care, no active treatment #HFpEF (60% on 07/2024) Follows Dr. Browning outpatient. Does not appear to be fluid overload on exam, no vascular congestion on CXR, and CBC shows what appears to be hemoconcentration given elevated WBC, hemoglobin, and platelets though may be reactive thrombocytosis. Additionally, presents with SAPPHIRE given previous creatinine of 0.7 and now presents with creatinine of 1.0 with BUN/creatinine ratio > 20. Thus, patient likely overall dehydrated and will hold diuretics at this time. 300 cc NS bolus, can give additional IVF if indicated. ? Cardiology following as above - comfort care, no active treatment #Chronic pain ? Morphine drip per comfort care protocol #COPD on 2 L home O2 Does not have any inhalers at home per son. ? O2 for patient comfort Diet: Full liquid diet, w/ ensure Lines: PIV DVT prophylaxis: SCDs GI prophylaxis: Held CODE STATUS: DNR/DNI - comfort care Plan of care discussed with attending physician, Dr. Brooks. Danyel Marie MD PGY?2 Attending Provider Attestation/Addendum I attest that I was physically present for the evaluation, physical examination, lab and imaging review of the patient with the residents. I discussed the case with the residents and agree with the findings and plans of care as documented above. Patient continues to be on morphine drip as per comfort care measures. Appears comfortable at bedside. Unique Brooks MD
[2024-09-21 20:00] VITALS: BP 91/49; PULSE 122; RESP 20; TEMP 36; O2SAT 69
[2024-09-21 23:10] VITALS: PULSE 92; RESP 18; O2SAT 92
[2024-09-22 06:00] VITALS: BMI 36.0
[2024-09-22 08:00] VITALS: BP 88/43; PULSE 113; RESP 7; TEMP 35.7; O2SAT 65
[2024-09-22] MEDS: Morphine IV Drip 100mg/100ml 100 ML IV (09:00)
[2024-09-22 09:19] VITALS: PULSE 115; RESP 16; O2SAT 53
[2024-09-22] MEDS: LORazepam 2 MG/ML VIAL 1 MG IVP (12:07)
--- NOTE | 2024-09-22 18:48 | PD.HHPROG ---
Documentation for date of: 09/22/24 Subjective - Hospitalist Subjective Interval history: No acute overnight events, patient continues to be comfortable at bedside. Morphine drip in place. Family at bedside. Review of Systems Review of Systems ROS Unobtainable: unobtainable due to mental status Exam Vital Signs Temp Pulse Resp BP Pulse Ox O2 Del Method O2 Flow Rate 96.2 F L 115 H 16 88/43 L 53 L Nasal Cannula 2 09/22/24 08:00 09/22/24 09:19 09/22/24 09:19 09/22/24 08:00 09/22/24 09:19 09/22/24 08:00 09/22/24 09:19 Narrative Appears comfortable, deferred for patient patient comfort. Objective - Hospitalist Labs Diagram: 09/19/24 07:50 09/19/24 07:50 ABG Interpretation ABG results: 09/07/24 14:37 ABG pH 7.44 ABG pCO2 46 ABG pO2 65 L ABG HCO3 31 H ABG O2 Saturation 93 ABG Base Excess 6 H Assessment & Plan Plan: Patient is a 74-year-old female with a history of enlarged CBD s/p ERCP on 07/2024, COPD on 2 L home O2, HFpEF (60% on 07/2024), a-fib on Xarelto, hypertension, and chronic pain on home morphine who is admitted for AHRF secondary to pneumonia secondary to possible aspiration event, currently hospitalized for management of acute on chronic hypoxic respiratory failure. #Constipation, likely ileus #Pancreatitis ruled out #Acute on chronic hypoxic respiratory failure secondary to possible aspiration event, resolved #Right lower lobe pneumonia hospital-acquired #Lactic acidosis, resolved #fatigue, improving #Chronic Leukocytosis, reactive vs inflammatory vs infective process #Failure to thrive #Liver cirrhosis possibly MASH #Biliary stricture s/p ERCP and stent placement #Transaminitis #Hyperbilirubinemia #Atrial fibrillation on Xarelto #HFpEF (60% on 07/2024) #Chronic pain #COPD on 2 L home O2 - Comfort care measures with morphine drip - As needed Ativan and morphine in place - Bowel regimen, minimal supplemental oxygen for comfort Unique Brooks MD Time Spent with Patient Time: Total time spent is greater than 50% in coordination of care (as documented) at patient's floor/unit and/or counseling patient: Time with patient: Greater than 35 minutes Reason for Continued Stay Reason for continued stay: other (comfort care) Quality Measures Quality Measures VTE prophylaxis Advance care planning discussed with:: child
[2024-09-22 20:00] VITALS: BP 71/37; PULSE 110; RESP 14; TEMP 36.7; O2SAT 77
--- NOTE | 2024-09-23 06:33 | PD.DPN ---
Documentation for date of: 09/23/24 Pronouncement Note Date and Time of Date of : 09/23/24 Time of : 06:26 PCOD Preliminary cause of : Cardiopulmonary arrest Summary Additional details: Called to see patient on comfort care for unresponsiveness. On exam the patient did not respond to verbal or physical stimuli. Absent heart and breath sounds. Absent peripheral pulses. Pupils are fixed and dilated. Patient pronounced at 06:26. Dr. Stokes notified. Next of kin/family - Santana Moon notified. Additional Data Confirmation of : no pulse, no respirations, no heart sounds and pupils fixed and dilated Family: contacted Additional persons at bedside: other Attending/PCP notified?: Yes Attending physician: Cas Stokes MD Was code activated?: No
--- NOTE | 2024-09-23 08:15 | PC.NURSE ---
Anthony from [facility] here to transport pt to home. Release form signed and body released to home staff.
--- NOTE | 2024-09-23 15:09 | DES_ITS ---
<Statement entered by Unique Brooks MD - 09/24/24 08:30> I attest that I was physically present for the evaluation, physical examination, lab and imaging review of the patient with the residents. I discussed the case with the residents and agree with the findings and plans of care as documented below. Unique Brooks MD Documentation for date of: 09/23/24 Summary Date and Time Date of admission: 09/07/24 18:37 Summary Hospital Course: 74-year-old female with a history of enlarged CBD s/p ERCP on 07/2024, COPD on 2 L home O2, HFpEF (60% on 07/2024), a-fib on Xarelto, hypertension, and chronic pain on home morphine who was admitted for AHRF secondary to pneumonia secondary to possible aspiration event. During hospital stay, patient developed ventricular arrythmias, cardiology consulted, patient started on amiodarone drip and transitioned to PO amio. Patient initially showed improvement with ceftriaxone and doxycycline. Prior to anticipated discharge, patient noted to have increased lethargy. T bili trended up, KUB showed significant stool burden. Dr. Carrillo was cunsulted as he placed biliary stent in July 2024, extensive workup was done including MRI and MRCP. No blockage was found, T. Bili eventually downtrended. Patient received gastrograffen enema, was started on bowel regiment, however only had few small bowel movements. Patient continued to deteriorate, with multiple bouts of hypoxia, increasing fatigue/lethargy. Goals of care discussion were held with family and patient, who expressed wish to pass peacefully. Family was in agreement with this plan, and comfort care measures were initiated on 09/19/24. Patient on 09/23/24. Plan of care discussed with attending Dr. Brooks. Danyel Marie MD PGY-2 Additional Data Confirmation of as documented by pronouncing clinician: no pulse, no respirations, no heart sounds and pupils fixed and dilated Family: contacted Attending/PCP notified?: Yes Attending physician: Unique Brooks MD Was code activated?: No Autopsy requested?: No coroner/medical examiner notified?: No Organ bank notified?: Yes Advance directives: Yes Hospice patient?: Yes (Comfort care) Visit Providers Provider Primary care physician: Domenic Mcmahan MD Consults: 09/07/24 20:54 Consult to Cardiology Routine Comment: Consulting Provider: Tico Doll 09/08/24 02:46 Referral Wound Care Routine Comment: 09/08/24 08:01 Referral Speech Therapy Routine Comment: swallow eval 09/08/24 10:35 Referral Nutritional Services Routine Comment: failure to thrive 09/13/24 12:05 Consult to Hematology Routine Comment: chronic leukocytosis Consulting Provider: Maryjo Robison 09/15/24 12:40 Consult to Gastroenterology Urgent Comment: Consulting Provider: Eladio Ramirez 09/19/24 11:00 Referral [facility] Urgent Comment: patient on comfort care Diagnosis PCOD Cause of : Cardiopulmonary arrest Discharge Plan Plan Patient Disposition: Prescriptions/Referrals Referrals: Domenic Mcmahan MD [Primary Care Provider] - Jason Browning MD [Physician] - Patient/Caregiver Discharge Instructions Education Materials: Anemia, AFL/Afib Print Language: Nauruan
== END 2024-09-23 08:22 | disposition expired | DRG 177 ==
LOC: SERX 17:43 → SERHOLD 18:55 → S2NX 21:51 → S3SX 09-12 23:38
PROVIDERS: Internal Medicine; Student in an Organized Health Care Education/Training Program; Admitting Provider Student in an Organized Health Care Education/Training Program; Emergency Provider Emergency Medicine; PCP Family Medicine; Visit Provider Student in an Organized Health Care Education/Training Program
DX: J69.0 Pneumonitis due to inhalation of food and vomit (principal); J96.21 Acute and chronic respiratory failure with hypoxia; K83.1 Obstruction of bile duct; K85.90 Acute pancreatitis without necrosis or infection, unspecified; I50.32 Chronic diastolic (congestive) heart failure; J44.0 Chronic obstructive pulmonary disease with (acute) lower respiratory infection; N17.9 Acute kidney failure, unspecified; E87.20 Acidosis, unspecified; G93.40 Encephalopathy, unspecified; I47.20 Ventricular tachycardia, unspecified; I48.20 Chronic atrial fibrillation, unspecified; K86.3 Pseudocyst of pancreas; R18.8 Other ascites; K59.39 Other megacolon; K56.7 Ileus, unspecified; Z99.81 Dependence on supplemental oxygen; I11.0 Hypertensive heart disease with heart failure; I48.0 Paroxysmal atrial fibrillation; I45.4 Nonspecific intraventricular block; G89.29 Other chronic pain; Z87.891 Personal history of nicotine dependence; Z90.49 Acquired absence of other specified parts of digestive tract; Z79.01 Long term (current) use of anticoagulants; E86.0 Dehydration; K74.60 Unspecified cirrhosis of liver; E66.9 Obesity, unspecified; Z68.33 Body mass index [BMI] 33.0-33.9, adult; K86.89 Other specified diseases of pancreas; E03.9 Hypothyroidism, unspecified; R13.10 Dysphagia, unspecified; E88.09 Other disorders of plasma-protein metabolism, not elsewhere classified; J15.9 Unspecified bacterial pneumonia; I46.9 Cardiac arrest, cause unspecified; R62.7 Adult failure to thrive; Z51.5 Encounter for palliative care; Z66 Do not resuscitate; Z74.01 Bed confinement status; Z79.899 Other long term (current) drug therapy
CPT/HCPCS: 36415; 36600; 71045; 74018; 74177; 74183; 74270; 78227; 80048; 80053; 80076; 81001; 82248; 82550; 82803; 83605; 83690; 83735; 83880; 84100; 84145; 84443; 84484; 85025; 85652; 86140; 87040; 87081; 87086; 87205; 87305; 87400; 87811; 89220; 92526; 92610; 93005; 93225; 93971; 94640; 94664; 94667; 96361; 96365; 96366; 96367; 99285; A4649; A9270; A9537; A9579; J0283; J0692; J0696; J1171; J1650; J1720; J1938; J1956; J2060; J2270; J2405; J2470; J2543; J2765; J3370; J3475; J3480; J3490; J7030; J7042; J7050; J7120; J7999; P9047; Q9963; Q9967